=== PATIENT | female | born 1945 | race African-American/Black ===

== ENCOUNTER 2016-10-19 08:39 | Inpatient (IN) | payer OTHER ==
[2016-10-19] MEDS ORDERED: HYDROmorphone HCL CARPU-JECT 1 MG/1 ML DISP.SYRIN IVPUSH ONE (09:28)
[2016-10-19] MEDS ORDERED: ASPIRIN 81 MG CHEWABLE TABLETS PO ONE (09:29)
[2016-10-19] MEDS ORDERED: HYDROmorphone HCL CARPU-JECT 2 MG/1 ML DISP.SYRIN ONE (09:36)
[2016-10-19] MEDS ORDERED: ASPIRIN 81 MG CHEWABLE TABLETS ONE (09:36)
--- NOTE | 2016-10-19 09:36 | PDOC ---
History of Present Illness - General Chief Complaint: Chest Pain Stated Complaint: LEFT CHEST PAIN Time Seen by Provider: 10/19/16 08:44 - History of Present Illness Initial Comments: 10/19/16 09:30 68-year-old female with a past medical history of AODM, hypertension, and hyperlipidemia She usually takes a baby aspirin daily, but stopped 2 days ago because of a nosebleed Surgical history-appendectomy, cholecystectomy, and ventral hernia repair with mesh graft Patient states that on Sunday she was lifting heavy boxes Yesterday she started developing some left sided/left lateral chest pain, radiating up into her neck, into her back, and into her left lateral abdomen, and under her left breast She states the pain as off and on and worse with musculoskeletal maneuvers She does admit to a cough, it is nonproductive She denies any shortness of breath, palpitations, midsternal chest pain, leg swelling, She denies any fevers or chills, nausea vomiting or diarrhea She denies any calf pain She states the pain has been constant all morning today, prompting her to come to the emergency department She denies any other complaints at this time Patient states she did not take any of her morning medications, and did not take her blood pressure medications today Past History - Past Medical History Allergies/Adverse Reactions: Allergies Allergy/AdvReac Type Severity Reaction Status Date / Time latex Allergy Severe Swelling Verified 10/19/16 09:22 insulin lispro [From Humalog] Allergy Intermediate Generalized Verified 09:22 rash and itching naproxen [From Naprosyn] Allergy Swelling Verified 10/19/16 09:22 oxaprozin [From Daypro] Allergy Swelling Verified 10/19/16 09:22 saxagliptin HCl Allergy leg edema Verified 10/19/16 09:22 [From Onglyza] latex Allergy Severe Uncoded 10/19/16 09:22 Mushrooms Allergy Uncoded 10/19/16 09:22 naproxen Allergy Uncoded 10/19/16 09:22 Home Medications: Ambulatory Orders Allopurinol [Zyloprim -] 100 mg PO DAILY 10/19/16 Aspirin [ASA -] 81 mg PO DAILY 10/19/16 Cholecalciferol (Vitamin D3) [Vitamin D3] 2,000 unit PO DAILY 10/19/16 Clonidine HCl [Catapres] 0.2 mg PO TID 10/19/16 Insulin (Levemir) [Levemir Vial] 35 unit SQ DAILY 10/19/16 Liraglutide [Victoza -] 1.8 mg SQ DAILY@0700 10/19/16 Lisinopril [Prinivil -] 40 mg PO BID 10/19/16 Metformin HCl [Metformin HCl ER] 1,000 mg PO BID 10/19/16 Quinidine Sulfate 200 mg PO DAILY 10/19/16 Sitagliptin Phosphate [Januvia] 100 mg PO DAILY 10/19/16 Triamterene/Hydrochlorothiazid [Triamterene-Hctz 37.5-25 mg Cp] 1 each PO DAILY 10/19/16 Anemia: No Asthma: No Cancer: No Cardiac Disorders: No CVA: No COPD: No CHF: No Dementia: No Diabetes: Yes (IDDM on lantus) GI Disorders: Yes (CONSTIPATION) Disorders: Yes (H/O URETERAL STENT) HTN: Yes Hypercholesterolemia: Yes Liver Disease: No Suicide Attempt (Hx): No Seizures: No Thyroid Disease: No - Surgical History Abdominal Surgery: Yes (HERNIA REPAIR WITH MESH IMPLANT) Appendectomy: No Cardiac Surgery: No Cholecystectomy: Yes Lung Surgery: No Neurologic Surgery: No Orthopedic Surgery: Yes (LT KNEE REPLACEMENT) - Psycho/Social/Smoking Cessation Hx Anxiety: No Suicidal Ideation: No Smoking Status: No Smoking History: Smoker current status UNK Have you smoked in the past 12 months: No Number of Cigarettes Smoked Daily: 0 Cigars Per Day: 0 Hx Alcohol Use: No Drug/Substance Use Hx: No Substance Use Type: None Hx Substance Use Treatment: No Review of Systems - Review of Systems Able to Perform ROS?: Yes Comments:: 10/19/16 09:33 12 point review of systems is as per history of present illness and otherwise negative *Physical Exam - Vital Signs Last Vital Signs Temp Pulse Resp BP Pulse Ox 98 F 101 H 20 193/89 100 10/19/16 08:39 10/19/16 08:39 10/19/16 08:39 10/19/16 08:39 10/19/16 08:39 - Physical Exam Comments: 10/19/16 09:34 Physical exam Last Vital Signs Temp Pulse Resp BP Pulse Ox 98 F 101 H 20 193/89 100 10/19/16 08:39 10/19/16 08:39 10/19/16 08:39 10/19/16 08:39 10/19/16 08:39 GENERAL: The patient is awake, alert, and complaining of severe pain HEAD: Normal with no signs of trauma. EYES: Sclera anicteric, conjunctiva normal ENT: Moist mucous membranes. NECK: Normal range of motion, supple LUNGS: Breath sounds equal, clear to auscultation bilaterally. No wheezes, and no crackles. HEART: Regular rate and rhythm, normal S1 and S2 without murmur, rub or gallop. CHEST WALL: There is tenderness on the chest wall in the muscles of the mid axillary line on the left, into the back, and into the left lower anterior chest wall, and left lower ribs-palpation of this area reproduces the pain to some extent ABDOMEN: Soft, nontender, normoactive bowel sounds. No guarding, no rebound. No masses appreciated. There is some tenderness in the left upper abdomen and into the left lateral midaxillary line, and into the left lower lateral ribs Otherwise the abdomen is soft and nontender him and without guarding or rebound EXTREMITIES: Normal range of motion, no edema. No clubbing or cyanosis. No cords, erythema, or tenderness. NEUROLOGICAL: Cranial nerves II through XII grossly intact. Normal speech, normal gait. Motor 5 out of 5 and equal in the upper lower extremities, alert and answering questions, grossly nonfocal neurologic exam PSYCH: Normal mood, normal affect. SKIN: Warm, Dry, normal turgor, no rashes or lesions noted. Heart Score/ECG Review - History History: Slightly suspicious - Electrocardiogram EKG: Non specific repolarization disturbance - Age Age: >/= 65 - Risk Factors Risk Factors Heart Score: Yes Hx Hypercholesterolemia, Yes Hx Hypertension, Yes Hx Diabetes, Yes Hx Obesity Based on the list above the patient has:: >/=3 risk factors or Hx atherosclerotic disease - Troponin Troponin: </= normal limit - Score Heart Score - Total: 5 ED Treatment Course - LABORATORY CBC & Chemistry Diagram: 10/19/16 09:15 10/19/16 09:15 - RADIOLOGY Radiology Studies Ordered: Category Date Time Status CHEST X-RAY PORTABLE* [RAD] Stat Radiology 10/19/16 09:28 Ordered Medical Decision Making - Medical Decision Making 10/19/16 09:38 EKG Sinus tachycardia 102, 0 axis Normal WA interval Nonspecific QRS widening with a QRS duration of 118 ms QTC 492 There is LVH and repolarization abnormality When compared to the EKG of 11/07/14 Today's EKG has some subtle changes from the prior EKG Given the patient's symptomatology, and old CAT scan was pulled to see if her aorta has ever been imaged On the CT scan of 11/07/14 The aorta is unremarkable Musculoskeletal sounding chest back and abdomen pain worse with musculoskeletal maneuvers, after lifting heavy boxes on Sunday However given the patient's significant cardiac risk factors, she has a heart score of 5, and will most likely require serial cardiac enzymes and EKGs and further cardiac workup 10/19/16 10:40 Laboratory Results - last 24 hr 10/19/16 10/19/16 10/19/16 09:15 09:15 09:15 WBC 14.4 H D RBC 4.89 Hgb 12.3 D Hct 38.5 MCV 78.7 L MCHC 31.8 L RDW 15.3 Plt Count 330 MPV 10.4 Sodium 139 Potassium 3.7 Chloride 98 Carbon Dioxide 24 Anion Gap 17 H BUN 35 H Creatinine 1.4 H Creat Clearance w eGFR 36.96 Random Glucose 323 H* D Calcium 9.7 Magnesium 1.6 L Total Bilirubin 1.8 H D AST 39 D ALT 29 D Alkaline Phosphatase 101 H D Creatine Kinase 145 H Troponin I 0.06 Total Protein 7.6 Albumin 3.9 Lipase 10/19/16 09:15 WBC RBC Hgb Hct MCV MCHC RDW Plt Count MPV Sodium Potassium Chloride Carbon Dioxide Anion Gap BUN Creatinine Creat Clearance w eGFR Random Glucose Calcium Magnesium Total Bilirubin AST ALT Alkaline Phosphatase Creatine Kinase Troponin I Total Protein Albumin Lipase 51 First troponin 0.06, white count 14.4, random glucose 323, creat 1.4, all labwork reviewed 10/19/16 10:45 Chest x-ray NAD Given the white count and the left upper quadrant abdominal pain, would check a CT scan Case discussed with hospitalist-will admit/place in observation 10/19/16 11:12 Case discussed with cardiology-Dr. Rod-will see patient in consultation 10/19/16 12:19 CT scan of the abdomen and pelvis without contrast There is a long-standing left sided hydronephrosis without change There is evidence of multiple prior surgical procedures No acute pathology is seen *DC/Admit/Observation/Transfer Diagnosis at time of Disposition: Chest pain, Abdominal pain - Discharge Dispostion Condition at time of disposition: Stable Admit: Yes - Referrals
[2016-10-19] MEDS ORDERED: cloNIDine HCL 0.1 MG TABLET ONE (09:51)
[2016-10-19] MEDS ORDERED: cloNIDine HCL 0.1 MG TABLET PO ONE (09:55)
[2016-10-19 10:03] LABS: MCH 25.1 pg (25.7-33.7); MCHC 31.8 g/dl (32.0-36.0); MEAN CELL VOLUME 78.7 fl (80-96); MEAN PLT VOLUME 10.4 fl (7.5-11.1); PLATELET COUNT 330 K/MM3 (134-434); RDW 15.3 % (11.6-15.6); WHITE BLOOD COUNT 14.4 K/mm3 (4.0-10.0)
--- NOTE | 2016-10-19 10:09 | EKG ---
Test Reason : Blood Pressure : / mmHG Vent. Rate : 102 BPM Atrial Rate : 102 BPM P-R Int : 180 ms QRS Dur : 118 ms QT Int : 378 ms P-R-T Axes : 086 -03 086 degrees QTc Int : 492 ms SINUS TACHYCARDIA LEFT VENTRICULAR HYPERTROPHY WITH QRS WIDENING NONSPECIFIC T WAVE ABNORMALITY ABNORMAL ECG WHEN COMPARED WITH ECG OF 21-JUL-2013 17:29, T wave abnormality now seen in aVL Confirmed by LUANA CAMARGO, MICHAEL ([id number]) on 10/19/2016 10:08:40 AM Referred By: MARIELY GOODWIN Confirmed By:MICHAEL CRAFT MD
[2016-10-19 10:24] LABS: ALBUMIN 3.9 g/dl (3.5-5.0); BILIRUBIN,TOTAL 1.8 mg/dl (0.2-1.0); CALCIUM 9.7 mg/dl (8.4-10.2); CREATININE 1.4 mg/dl (0.6-1.3); MAGNESIUM 1.6 mg/dL (1.8-2.4); TOT PROT 7.6 g/dl (6.4-8.3)
[2016-10-19 10:30] LABS: TROPONIN I (DFP) 0.06 ng/ml (0.03-0.50)
--- NOTE | 2016-10-19 11:36 | CON.CARD ---
Consult Consult Specialty:: Cardiology Referred by:: Dr. Walsh Reason for Consultation:: Chest pain - History of Present Illness Chief Complaint: Chest pain History of Present Illness: 70 yo female with DM, HTN, hyperlipidemia, who presents to [place] ED today with left sided chest, upper abdominal, and left lateral discomfort which is sometimes exacerbated with movement of her torso. Denies any associated nausea, diaphoresis, or dyspnea. Patient reports that she was moving heavy boxes yesterday. No ischemic ECG changes. First troponin 0.06. She reports that her last stress test was > 5 years ago. PMD: Dr. Medina - History Source History Provided By: Patient Limitations to Obtaining History: No Limitations - Past Medical History Cardio/Vascular: Yes: HTN Renal/: Yes: Other (h/o pyelonephritis. 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) Endocrine: Yes: Diabetes Mellitus - Past Surgical History Past Surgical History: Yes: Appendectomy, Cholecystectomy, Hernia Repair, Joint Replacement (Left knee total knee replacement), Laminectomy (Lumbar spine) - Alcohol/Substance Use Hx Alcohol Use: No History of Substance Use: reports: None - Smoking History Smoking history: Smoker current status UNK Have you smoked in the past 12 months: No Aproximately how many cigarettes per day: 0 Home Medications - Allergies Allergies/Adverse Reactions: Allergies Allergy/AdvReac Type Severity Reaction Status Date / Time latex Allergy Severe Swelling Verified 10/19/16 09:22 insulin lispro [From Humalog] Allergy Intermediate Generalized Verified 09:22 rash and itching naproxen [From Naprosyn] Allergy Swelling Verified 10/19/16 09:22 oxaprozin [From Daypro] Allergy Swelling Verified 10/19/16 09:22 saxagliptin HCl Allergy leg edema Verified 10/19/16 09:22 [From Onglyza] latex Allergy Severe Uncoded 10/19/16 09:22 Mushrooms Allergy Uncoded 10/19/16 09:22 naproxen Allergy Uncoded 10/19/16 09:22 - Home Medications Home Medications: Ambulatory Orders Allopurinol [Zyloprim -] 100 mg PO DAILY 10/19/16 Aspirin [ASA -] 81 mg PO DAILY 10/19/16 Cholecalciferol (Vitamin D3) [Vitamin D3] 2,000 unit PO DAILY 10/19/16 Clonidine HCl [Catapres] 0.2 mg PO TID 10/19/16 Insulin (Levemir) [Levemir Vial] 35 unit SQ DAILY 10/19/16 Liraglutide [Victoza -] 1.8 mg SQ DAILY@0700 10/19/16 Lisinopril [Prinivil -] 40 mg PO BID 10/19/16 Metformin HCl [Metformin HCl ER] 1,000 mg PO BID 10/19/16 Quinidine Sulfate 200 mg PO DAILY 10/19/16 Sitagliptin Phosphate [Januvia] 100 mg PO DAILY 10/19/16 Triamterene/Hydrochlorothiazid [Triamterene-Hctz 37.5-25 mg Cp] 1 each PO DAILY 10/19/16 Family Disease History - Family Disease History Family History: Denies (premature CAD or sudden cardiac ) Review of Systems - Review of Systems Constitutional: reports: No Symptoms Eyes: reports: No Symptoms HENT: reports: No Symptoms Cardiovascular: reports: Chest Pain. denies: Edema, Palpitations, Shortness of Breath Respiratory: reports: No Symptoms Gastrointestinal: denies: Melena, Vomiting Blood Genitourinary: reports: No Symptoms Endocrine: reports: No Symptoms Hematology/Lymphatic: reports: No Symptoms Psychiatric: reports: No Symptoms Vital Signs: Vital Signs Temperature 98 F 10/19/16 08:39 Pulse Rate 81 10/19/16 11:03 Respiratory Rate 18 10/19/16 11:03 Blood Pressure 161/87 10/19/16 11:03 O2 Sat by Pulse Oximetry (%) 100 10/19/16 11:03 Constitutional: Yes: Well Nourished, No Distress, Obese Eyes: Yes: Conjunctiva Clear, EOM Intact HENT: Yes: Atraumatic, Normocephalic Respiratory: Yes: CTA Bilaterally Gastrointestinal: Yes: Normal Bowel Sounds, Soft Cardiovascular: Yes: Regular Rate and Rhythm JVD: No Carotid Bruit: No Heart Sounds: Yes: S1, S2 Murmur: No: Systolic Murmur Edema: No Peripheral Pulses WNL: Yes Neurological: Yes: Alert, Oriented, Cran Nerves II-XII Intact Psychiatric: Yes: WNL - Other Data Echo: Report Reviewed (07/21/13 Echo: Normal LV size and systolic function. Borderline LA enlargement. Mild MR. Mild TR. RVSP 30-40 mmHg. Mild aortic root dilatation.), Image Reviewed Imaging - Results Chest X-ray: Report Reviewed (10/19/16: No acute pathology) Assessment/Plan 70 yo female with DM, HTN, hyperlipidemia, who presents to [place] ED today with left sided chest, upper abdominal, and left lateral discomfort. Patient's discomfort is likely musculoskeletal in etiology. ECG demonstrated sinus rhythm with LVH w/ QRS widening and non-specific T wave abnormality. First troponin 0.06. Last stress test was > 5 years ago. RECS: Given patient's cardiac risk factors, patient to be admitted for observation overnight. If patient remains clinically stable and serial trops are negative, then patient may be discharged tomorrow AM with outpatient follow-up in my office for outpatient echocardiogram and Lexiscan nuclear stress test. Please call with questions.
--- NOTE | 2016-10-19 12:05 | HP ---
[id number] female with a past medical history of IDDM, HTN, pylenephritis, CKD. She reports moving heavy boxes on 10/16/16. She awoke the following day with pain to the center chest that radiates to the right shoulder. She reports the pain worsened upon movement and resolved spontaneously. Patient reports she awoke this morning with severe with a sharp pain to the center of the chest radiating to the neck that worsened upon position changes. Patient reports the pain is unrelieved with position changes and tylenol. ER course was notable for: (1) troponin x1 0.06 wnl, WBC 14 (2) EKG, sinus tachycardia, HR 102, normal axis, QTC 492, LVH unchanged from prior ekg 11/08 (3) CT of abd/pelvis, left sided hydronephrosis long standing, no acute pathology Recent Travel: none PAST MEDICAL HISTORY: IDDM, HTN, CKD PAST SURGICAL HISTORY:appendectomy, cholescytectomy, left urethral stent placement and removal for left urethral stricture. Social History: none Smoking:none Alcohol:none Drugs: none Family History: non contributory Allergies latex Allergy (Severe, Verified 10/19/16 09:22) Swelling ANAPHYLACTIC SHOCK insulin lispro [From Humalog] Allergy (Intermediate, Verified 10/19/16 09:22) Generalized rash and itching naproxen [From Naprosyn] Allergy (Verified 10/19/16 09:22) Swelling oxaprozin [From Daypro] Allergy (Verified 10/19/16 09:22) Swelling saxagliptin HCl [From Onglyza] Allergy (Verified 10/19/16 09:22) leg edema latex Allergy (Severe, Uncoded 10/19/16 09:22) ANAPHYLACTIC SHOCK Mushrooms Allergy (Uncoded 10/19/16 09:22) naproxen Allergy (Uncoded 10/19/16 09:22) HOME MEDICATIONS: Home Medications Medication Instructions Recorded Allopurinol [Zyloprim -] 100 mg PO DAILY 10/19/16 Aspirin [ASA -] 81 mg PO DAILY 10/19/16 Cholecalciferol (Vitamin D3) 2,000 unit PO DAILY 10/19/16 [Vitamin D3] Clonidine HCl [Catapres] 0.2 mg PO TID 10/19/16 Insulin (Levemir) [Levemir Vial] 35 unit SQ DAILY 10/19/16 Liraglutide [Victoza -] 1.8 mg SQ DAILY@0700 10/19/16 Lisinopril [Prinivil -] 40 mg PO BID 10/19/16 Metformin HCl [Metformin HCl ER] 1,000 mg PO BID 10/19/16 Quinidine Sulfate 200 mg PO DAILY 10/19/16 Sitagliptin Phosphate [Januvia] 100 mg PO DAILY 10/19/16 Triamterene/Hydrochlorothiazid 1 each PO DAILY 10/19/16 [Triamterene-Hctz 37.5-25 mg Cp] REVIEW OF SYSTEMS CONSTITUTIONAL: Absent: fever, chills, diaphoresis, generalized weakness, malaise, loss of appetite, weight change HEENT: Absent: rhinorrhea, nasal congestion, throat pain, throat swelling, difficulty swallowing, mouth swelling, ear pain, eye pain, visual changes CARDIOVASCULAR: Absent: chest pain, syncope, palpitations, irregular heart rate, lightheadedness , peripheral edema RESPIRATORY: Absent: cough, shortness of breath, dyspnea with exertion, orthopnea, wheezing, stridor, hemoptysis GASTROINTESTINAL: Absent: abdominal pain, abdominal distension, nausea, vomiting, diarrhea, constipation, melena, hematochezia GENITOURINARY: Absent: dysuria, frequency, urgency, hesitancy, hematuria, flank pain, genital pain MUSCULOSKELETAL: Absent: myalgia, arthralgia, joint swelling, back pain, neck pain SKIN: Absent: rash, itching, pallor HEMATOLOGIC/IMMUNOLOGIC: Absent: easy bleeding, easy bruising, lymphadenopathy, frequent infections ENDOCRINE: Absent: unexplained weight gain, unexplained weight loss, heat intolerance, cold intolerance NEUROLOGIC: Absent: headache, focal weakness or paresthesias, dizziness, unsteady gait, seizure, mental status changes, bladder or bowel incontinence PSYCHIATRIC: Absent: anxiety, depression, suicidal or homicidal ideation, hallucinations. PHYSICAL EXAMINATION GENERAL: Awake, alert, and fully oriented, in no acute distress. HEAD: Normal with no signs of trauma. EYES: Pupils equal, round and reactive to light, extraocular movements intact, sclera anicteric, conjunctiva clear. No lid lag. EARS, NOSE, THROAT: Ears normal, nares patent, oropharynx clear without exudates. Moist mucous membranes. NECK: Normal range of motion, supple without lymphadenopathy, JVD, or masses. LUNGS: Breath sounds equal, clear to auscultation bilaterally. No wheezes, and no crackles. No accessory muscle use. HEART: Regular rate and rhythm, normal S1 and S2 without murmur, rub or gallop. ABDOMEN: Soft, nontender, not distended, normoactive bowel sounds, no guarding, no rebound, no masses. No hepatomegaly or splenomegaly. MUSCULOSKELETAL: Normal range of motion at all joints. No bony deformities or tenderness. No CVA tenderness. point tenderness noted to the left anteror chest wall, muscle spasm noted the left trapezus muscle UPPER EXTREMITIES: 2+ pulses, warm, well-perfused. No cyanosis. No clubbing. Cap refill <2 seconds. No peripheral edema. LOWER EXTREMITIES: 2+ pulses, warm, well-perfused. No calf tenderness. No peripheral edema. NEUROLOGICAL: Cranial nerves II-XII intact. Normal speech. Normal gait. PSYCHIATRIC: Cooperative. Good eye contact. Appropriate mood and affect. SKIN: Warm, dry, normal turgor, no rashes or lesions noted. ASSESSMENT/PLAN: 1) card chest pain r/o acs - reproducible chest pain noted on exam, unlikely acs - troponin x 1 wnl, pending 2nd and 3rd - continous cardiac monitoring - heart score 5, cardiology Dr Rod consulted HTN - elevated b/p noted, pt reports not taking her AM medications, restart lisnopril and clonodine -hold Hctz/triametherene due to CHACHA 2) endo IDDM - hold metformin and januvia, fingersticks achs w/regular insulin coverage - continue levermir - pending hemglobin a1c 3) neph - acute on chronic kidney disease, creatine 1.4 baseline 0.8 - estela likely secondary to dehyration, elevated anion gap noted, gentle IV hydration - hold nephrotoxic agents, repeat bmp in am f/e/n - diabetic/low sodium diet - gentle IVF ppx - zantac - heparin - scd - oob dispo: requires telemetry observation, d/c home tomm Visit type - Emergency Visit Emergency Visit: Yes ED Registration Date: 10/19/16 Care time: The patient presented to the Emergency Department on the above date and was hospitalized for further evaluation of their emergent condition. - New Patient This patient is new to me today: Yes Date on this admission: 10/19/16 - Critical Care Critical Care patient: No
[2016-10-19] MEDS ORDERED: MAGNESIUM SULF 50% (8.12 MEQ/2 ML-1 GM VIAL) ONE (12:35)
[2016-10-19] MEDS ORDERED: SODIUM CHLORIDE 0.45%/POT 1,000 ML IV SCH (12:45)
[2016-10-19] MEDS ORDERED: LISINOPRIL 20 MG TABLET (FP) PO ONE (12:45)
[2016-10-19] MEDS ORDERED: MAGNESIUM SULFATE 2 GM in SODIUM CHLORIDE 100 ML IVPB ONE (12:45)
[2016-10-19] MEDS: SODIUM CHLORIDE 0.45%/POT 1,000 ML IV SCH (12:54)
[2016-10-19] MEDS: QUINIDINE SULFATE 200 MG PO SCH (12:54)
[2016-10-19] MEDS ORDERED: ACETAMINOPHEN 325 MG TABLET (FP) PO PRN (13:15)
[2016-10-19] MEDS ORDERED: CYCLOBENZAPRINE HCL 10 MG TABLET (FP) PO PRN (13:15)
[2016-10-19] MEDS ORDERED: ACETAMINOPHEN 500 MG TABLET (FP) ONE (13:31)
[2016-10-19] MEDS: cloNIDine HCL 0.1 MG TABLET PO SCH ×2 (14:06→21:28)
[2016-10-19] MEDS ORDERED: ONDANSETRON 4 MG/2 ML VIAL IVPUSH PRN (14:25)
[2016-10-19 14:34] VITALS: BMI 34.6
[2016-10-19] MEDS ORDERED: PT OWN MED DRAWER 7, Y5N ONE (16:08)
[2016-10-19 16:36] LABS: URINE APPEARANCE Clear; URINE BILIRUBIN Negative (NEGATIVE); URINE BLOOD 1+ (NEGATIVE); URINE COLOR YELLOW; URINE GLUCOSE (UA) 2+ (NEGATIVE); URINE KETONE 1+ (NEGATIVE); URINE LEUK ESTERASE Negative (NEGATIVE); URINE NITRITE Negative (NEGATIVE); URINE PROTEIN 3+ (NEGATIVE); URINE UROBILINOGEN 0.2 E.U/dl (0.2-1.0)
[2016-10-19] MEDS: INSULIN SLIDING SCALE (NOVOLOG) 1 VIAL SQ SCH ×2 (17:15→21:24)
[2016-10-19 18:00] LABS: CALCIUM 8.8 mg/dl (8.4-10.2); CREATININE 1.3 mg/dl (0.6-1.3); MAGNESIUM 2.1 mg/dL (1.8-2.4); PHOSPHOROUS 3.5 mg/dl (2.5-4.6)
[2016-10-19 18:49] LABS: URINE BACTERIA FEW /hpf (NEGATIVE); URINE WBC 0-2 (3-5)
[2016-10-19] MEDS: INSULIN DETEMIR 100 UNITS/ML MDV SQ SCH (21:22)
[2016-10-19] MEDS: LISINOPRIL 20 MG TABLET (FP) PO SCH (21:27)
[2016-10-19] MEDS: morphine CARPU-JECT 4 MG/1 ML DISP.SYRIN IVPUSH PRN (21:35)
[2016-10-20] MEDS: cloNIDine HCL 0.1 MG TABLET PO SCH ×3 (05:59→21:39)
[2016-10-20] MEDS: INSULIN SLIDING SCALE (NOVOLOG) 1 VIAL SQ SCH ×3 (06:26→21:39)
[2016-10-20 08:50] LABS: BASOPHIL 0.5 % (0-2.0); EOSINOPHIL 2.1 % (0-4.5); MCH 25.7 pg (25.7-33.7); MCHC 32.2 g/dl (32.0-36.0); MEAN CELL VOLUME 79.9 fl (80-96); NEUTROPHILS 76.8 % (42.8-82.8); PLATELET COUNT 274 K/MM3 (134-434); RDW 15.6 % (11.6-15.6); WHITE BLOOD COUNT 14.4 K/mm3 (4.0-10.0)
[2016-10-20 09:03] LABS: ALBUMIN 2.8 g/dl (3.5-5.0); BILIRUBIN,TOTAL 0.9 mg/dl (0.2-1.0); CALCIUM 8.6 mg/dl (8.4-10.2); CREATININE 1.5 mg/dl (0.6-1.3); PHOSPHOROUS 2.2 mg/dl (2.5-4.6); TOT PROT 6.2 g/dl (6.4-8.3)
[2016-10-20] MEDS ORDERED: PT OWN MED DRAWER 7, Y5N ONE (09:15)
[2016-10-20] MEDS ORDERED: CEFTRIAXONE 2 GM in DEXTROSE 5%-WATER - 100 ML IVPB ONE (09:47)
[2016-10-20] MEDS ORDERED: INSULIN DETEMIR 100 UNITS/ML MDV SQ SCH (10:00)
[2016-10-20] MEDS: ASPIRIN 81 MG CHEWABLE TABLETS PO SCH (10:38)
[2016-10-20] MEDS: LISINOPRIL 20 MG TABLET (FP) PO SCH ×2 (10:39→21:40)
[2016-10-20] MEDS: RANITIDINE HCL 150 MG TABLET (FP) PO SCH (10:40)
[2016-10-20] MEDS: CHOLECALCIFEROL (VITAMIN D3) 1,000 UNIT TABLET (FP) PO SCH (10:40)
[2016-10-20] MEDS: QUINIDINE SULFATE 200 MG PO SCH (10:40)
[2016-10-20] MEDS ORDERED: CEFTRIAXONE 50 ML ONE (10:43)
[2016-10-20] MEDS ORDERED: CEFTRIAXONE 100 ML IVPB ONE (10:46)
[2016-10-20 10:48] LABS: TROPONIN I (DFP) 0.06 ng/ml (0.03-0.50)
[2016-10-20] MEDS ORDERED: NAPH,MB-DB/K PH,MBDB POWDER PACKET PO ONE (11:15)
--- NOTE | 2016-10-20 12:11 | EKG ---
Test Reason : Blood Pressure : / mmHG Vent. Rate : 073 BPM Atrial Rate : 073 BPM P-R Int : 200 ms QRS Dur : 120 ms QT Int : 438 ms P-R-T Axes : 074 -15 012 degrees QTc Int : 482 ms NORMAL SINUS RHYTHM LEFT VENTRICULAR HYPERTROPHY WITH QRS WIDENING ABNORMAL ECG WHEN COMPARED WITH ECG OF 19-OCT-2016 08:47, NONSPECIFIC T WAVE ABNORMALITY is no longer present in aVL Confirmed by LUANA CAMARGO, MCIHAEL ([id number]) on 10/20/2016 12:11:20 PM Referred By: ABDOULAYE TRINIDAD Confirmed By:MICHAEL CRAFT MD
--- NOTE | 2016-10-20 12:20 | PN ---
Progress Note, Physician History of Present Illness: No new complaints. - Current Medication List Current Medications: Active Medications Acetaminophen (Tylenol -) 650 mg PO Q4H PRN PRN Reason: FEVER OR PAIN Aspirin (Asa -) 81 mg PO DAILY [facility] Last Admin: 10/20/16 10:38 Dose: 81 mg Cholecalciferol (Vitamin D3 -) 2,000 unit PO DAILY [facility] Last Admin: 10/20/16 10:40 Dose: 2,000 unit Clonidine (Catapres -) 0.2 mg PO TID [facility] Last Admin: 10/20/16 05:59 Dose: 0.2 mg Cyclobenzaprine HCl (Flexeril -) 10 mg PO TID PRN PRN Reason: MUSCLE SPASMS Last Admin: 10/19/16 19:51 Dose: 10 mg Potassium Chloride/Sodium Chloride (1/2ns+20meq Kcl) 1,000 mls @ 75 mls/hr IV ASDIR [facility] Last Admin: 10/19/16 12:54 Dose: 75 mls/hr Insulin Aspart (Novolog Vial Sliding Scale -) 1 vial SQ ACHS [facility] PRN Reason: Protocol Last Admin: 10/20/16 06:26 Dose: 6 units Insulin Detemir (Levemir Vial) 35 units SQ HS [facility] Last Admin: 10/19/16 21:22 Dose: 35 units Lisinopril (Prinivil) 40 mg PO BID [facility] Last Admin: 10/20/16 10:39 Dose: 40 mg Morphine Sulfate (Morphine Injection -) 4 mg IVPUSH Q6H PRN PRN Reason: PAIN Last Admin: 10/19/16 21:35 Dose: 4 mg Ondansetron HCl (Zofran Injection) 4 mg IVPUSH Q6H PRN PRN Reason: NAUSEA AND/OR VOMITING Quinidine Sulfate (Quinidine Sulfate -) 200 mg PO DAILY [facility] Last Admin: 10/20/16 10:40 Dose: 200 mg Ranitidine HCl (Zantac -) 150 mg PO DAILY [facility] Last Admin: 10/20/16 10:40 Dose: 150 mg - Objective Vital Signs: Vital Signs Temperature 99.1 F 10/20/16 06:00 Pulse Rate 81 10/20/16 06:00 Respiratory Rate 17 10/20/16 06:00 Blood Pressure 121/56 10/20/16 06:00 O2 Sat by Pulse Oximetry (%) 97 10/20/16 06:59 Constitutional: Yes: Well Nourished, No Distress, Obese Eyes: Yes: Conjunctiva Clear, EOM Intact HENT: Yes: Atraumatic, Normocephalic Cardiovascular: Yes: Regular Rate and Rhythm. No: JVD, Murmur Respiratory: Yes: CTA Bilaterally Gastrointestinal: Yes: Normal Bowel Sounds, Soft. No: Tenderness Edema: No Neurological: Yes: WNL, Alert, Oriented Psychiatric: Yes: WNL Labs: CBC, BMP 10/20/16 07:00 10/20/16 07:00 Assessment/Plan 70 yo female with DM, HTN, hyperlipidemia, who presents to [place] ED today with left sided chest, upper abdominal, and left lateral discomfort. Patient's discomfort is likely musculoskeletal in etiology. ECG demonstrated sinus rhythm with LVH w/ QRS widening and non-specific T wave abnormality. Serial trops were negative Last stress test was > 5 years ago. Hgb 12.3 -> 9.7 this AM. No gross signs of bleeding. RECS: Patient does not require any further inpatient cardiac evaluation. My office will contact patient to arrange for outpatient echocardiogram and Lexiscan nuclear stress test. Anemia evaluation as per primary team, but would repeat CBC to confirm results. Discharge planning as per hospitalist. Will see prn. Please call with questions.
--- NOTE | 2016-10-20 12:25 | PN ---
[id number]. OBJECTIVE: Patient is a 70 y/o female with a past medical history of IDDM, HTN , pylenephritis, CKD. patient was admitted from the emergency department for chest pain. Vital Signs Period Temp Pulse Resp BP Sys/Pascual Pulse Ox Last 24 Hr 99.1 F-99.2 F 78-87 17-18 121-178/56-92 95-97 cccGENERAL: Awake, alert, and fully oriented, in no acute distress. HEAD: Normal with no signs of trauma. EYES: Pupils equal, round and reactive to light, extraocular movements intact, sclera anicteric, conjunctiva clear. No lid lag. EARS, NOSE, THROAT: Ears normal, nares patent, oropharynx clear without exudates. Moist mucous membranes. NECK: Normal range of motion, supple without lymphadenopathy, JVD, or masses. LUNGS: Breath sounds equal, clear to auscultation bilaterally. No wheezes, and no crackles. No accessory muscle use. HEART: Regular rate and rhythm, normal S1 and S2 without murmur, rub or gallop. ABDOMEN: Soft, nontender, not distended, normoactive bowel sounds, no guarding, no rebound, no masses. No hepatomegaly or splenomegaly. MUSCULOSKELETAL: Normal range of motion at all joints. No bony deformities or tenderness. No CVA tenderness. point tenderness noted to the left anteror chest wall. UPPER EXTREMITIES: 2+ pulses, warm, well-perfused. No cyanosis. No clubbing. Cap refill <2 seconds. No peripheral edema. LOWER EXTREMITIES: 2+ pulses, warm, well-perfused. No calf tenderness. No peripheral edema. NEUROLOGICAL: Cranial nerves II-XII intact. Normal speech. Normal gait. PSYCHIATRIC: Cooperative. Good eye contact. Appropriate mood and affect. SKIN: Warm, dry, normal turgor, no rashes or lesions noted. Laboratory Results - last 24 hr 10/19/16 10/19/16 10/19/16 15:45 15:56 17:02 WBC RBC Hgb Hct MCV MCHC RDW Plt Count MPV Neutrophils % Lymphocytes % Monocytes % Eosinophils % Basophils % Sodium Potassium Chloride Carbon Dioxide Anion Gap BUN Creatinine Creat Clearance w eGFR POC Glucometer 392 Random Glucose Hemoglobin A1c % Calcium Phosphorus 2.9 Magnesium Total Bilirubin AST ALT Alkaline Phosphatase Creatine Kinase Troponin I Total Protein Albumin Urine Color Yellow Urine Appearance Clear Urine pH 6.0 Ur Specific [place] 1.015 Urine Protein 3+ H Urine Glucose (UA) 2+ H Urine Ketones 1+ H Urine Blood 1+ H Urine Nitrite Negative Urine Bilirubin Negative Urine Urobilinogen 0.2 e.u/dl Ur Leukocyte Esterase Negative Urine RBC 2-5 Urine WBC 0-2 Ur Epithelial Cells Few Urine Bacteria Few 10/19/16 10/19/16 10/19/16 17:17 17:17 17:17 WBC RBC Hgb Hct MCV MCHC RDW Plt Count MPV Neutrophils % Lymphocytes % Monocytes % Eosinophils % Basophils % Sodium 135 L Potassium 3.8 Chloride 97 L Carbon Dioxide 28 Anion Gap 10 BUN 32 H Creatinine 1.3 Creat Clearance w eGFR POC Glucometer Random Glucose 411 H* D Hemoglobin A1c % 8.3 H D Calcium 8.8 Phosphorus 3.5 D Magnesium 2.1 D Total Bilirubin AST ALT Alkaline Phosphatase Creatine Kinase Troponin I 0.50 Total Protein Albumin Urine Color Urine Appearance Urine pH Ur Specific [place] Urine Protein Urine Glucose (UA) Urine Ketones Urine Blood Urine Nitrite Urine Bilirubin Urine Urobilinogen Ur Leukocyte Esterase Urine RBC Urine WBC Ur Epithelial Cells Urine Bacteria 10/19/16 10/20/16 10/20/16 21:19 06:21 07:00 WBC 14.4 H RBC 3.76 D Hgb 9.7 L D Hct 30.0 L D MCV 79.9 L MCHC 32.2 RDW 15.6 Plt Count 274 MPV 9.0 D Neutrophils % 76.8 Lymphocytes % 11.3 D Monocytes % 9.3 Eosinophils % 2.1 Basophils % 0.5 Sodium Potassium Chloride Carbon Dioxide Anion Gap BUN Creatinine Creat Clearance w eGFR POC Glucometer 330 257 Random Glucose Hemoglobin A1c % Calcium Phosphorus Magnesium Total Bilirubin AST ALT Alkaline Phosphatase Creatine Kinase Troponin I Total Protein Albumin Urine Color Urine Appearance Urine pH Ur Specific [place] Urine Protein Urine Glucose (UA) Urine Ketones Urine Blood Urine Nitrite Urine Bilirubin Urine Urobilinogen Ur Leukocyte Esterase Urine RBC Urine WBC Ur Epithelial Cells Urine Bacteria 10/20/16 10/20/16 07:00 07:00 WBC RBC Hgb Hct MCV MCHC RDW Plt Count MPV Neutrophils % Lymphocytes % Monocytes % Eosinophils % Basophils % Sodium 136 Potassium 3.6 Chloride 101 Carbon Dioxide 28 Anion Gap 7 L BUN 30 H Creatinine 1.5 H Creat Clearance w eGFR 34.13 POC Glucometer Random Glucose 146 H D Hemoglobin A1c % Calcium 8.6 Phosphorus 2.2 L D Magnesium 2.0 Total Bilirubin 0.9 D AST 22 D ALT 21 D Alkaline Phosphatase 81 Creatine Kinase 67 Troponin I 0.06 Total Protein 6.2 L Albumin 2.8 L D Urine Color Urine Appearance Urine pH Ur Specific [place] Urine Protein Urine Glucose (UA) Urine Ketones Urine Blood Urine Nitrite Urine Bilirubin Urine Urobilinogen Ur Leukocyte Esterase Urine RBC Urine WBC Ur Epithelial Cells Urine Bacteria Active Medications Generic Name Dose Route Start Last Admin Trade Name Freq PRN Reason Stop Dose Admin Acetaminophen 650 mg 10/19/16 13:15 Tylenol - PO Q4H PRN FEVER OR PAIN Aspirin 81 mg 10/20/16 10:00 10/20/16 10:38 Asa - PO 81 mg DAILY [facility] Administration Cholecalciferol 2,000 unit 10/20/16 10:00 10/20/16 10:40 Vitamin D3 - PO 2,000 unit DAILY [facility] Administration Clonidine 0.2 mg 10/19/16 14:00 10/20/16 05:59 Catapres - PO 0.2 mg TID [facility] Administration Cyclobenzaprine HCl 10 mg 10/19/16 13:15 10/19/16 19:51 Flexeril - PO 10 mg TID PRN Administration MUSCLE SPASMS Potassium Chloride/Sodium Chloride 1,000 mls @ 75 mls/hr 10/19/16 12:45 12:54 1/2ns+20meq Kcl IV 75 mls/hr ASDIR BURTON Administration Insulin Aspart 1 vial 10/19/16 16:30 10/20/16 06:26 Novolog Vial Sliding Scale - SQ 6 units ACHS [facility] Administration Protocol Insulin Detemir 35 units 10/19/16 22:00 10/19/16 21:22 Levemir Vial SQ 35 units HS B[facility] Administration Lisinopril 40 mg 10/19/16 22:00 10/20/16 10:39 Prinivil PO 40 mg BID [facility] Administration Morphine Sulfate 4 mg 10/19/16 14:26 10/19/16 21:35 Morphine Injection - IVPUSH 4 mg Q6H PRN Administration PAIN Ondansetron HCl 4 mg 10/19/16 14:25 Zofran Injection IVPUSH Q6H PRN NAUSEA AND/OR VOMITING Quinidine Sulfate 200 mg 10/19/16 12:15 10/20/16 10:40 Quinidine Sulfate - PO 200 mg DAILY [facility] Administration Ranitidine HCl 150 mg 10/20/16 10:00 10/20/16 10:40 Zantac - PO 150 mg DAILY [facility] Administration ASSESSMENT/PLAN: 1) card chest pain r/o acs - reproducible chest pain noted on exam, unlikely acs - troponin x 3 wnl - continous cardiac monitoring, no dysarhyhmias noted - cardiology Dr Rod consulted and following HTN - continue lisnopril and clonodine -hold Hctz/triametherene due to CHACHA 2) endo IDDM - hold metformin and januvia, fingersticks achs w/regular insulin coverage - continue levermir - hemglobin a1c 8.3 noted 3) neph - acute on chronic kidney disease, creatine 1.5 baseline 0.8 - estela likely secondary to dehyration, elevated anion gap noted, gentle IV hydration - hold nephrotoxic agents, repeat bmp in am f/e/n - diabetic/low sodium diet - gentle IVF ppx - zantac - heparin - scd - oob dispo: requires telemetry observation, d/c home tomm Visit type - Emergency Visit Emergency Visit: Yes ED Registration Date: 10/21/16 Care time: The patient presented to the Emergency Department on the above date and was hospitalized for further evaluation of their emergent condition. - New Patient This patient is new to me today: No - Critical Care Critical Care patient: No - Discharge Referral Referred to [facility] Yes Physician Referral: Eyal Medina MD (Int Med)
[2016-10-20] MEDS ORDERED: SODIUM CHLORIDE 1,000 ML IV STA (12:32)
[2016-10-20] MEDS: SODIUM CHLORIDE 0.45%/POT 1,000 ML IV SCH (16:00)
[2016-10-20 16:39] LABS: BASOPHIL 0.4 % (0-2.0); EOSINOPHIL 2.1 % (0-4.5); MCH 25.9 pg (25.7-33.7); MCHC 32.4 g/dl (32.0-36.0); MEAN CELL VOLUME 79.9 fl (80-96); MEAN PLT VOLUME 9.3 fl (7.5-11.1); NEUTROPHILS 72.4 % (42.8-82.8); PLATELET COUNT 256 K/MM3 (134-434); RDW 15.6 % (11.6-15.6); WHITE BLOOD COUNT 11.9 K/mm3 (4.0-10.0)
[2016-10-20 16:51] LABS: CALCIUM 8.1 mg/dl (8.4-10.2); CREATININE 1.7 mg/dl (0.6-1.3)
[2016-10-20 18:22] LABS: FREE T4 1.21 ng/dl (0.76-1.46); THYROID STIMULATING HORMONE 0.49 uIU/ml (0.358-3.74)
[2016-10-20] MEDS: INSULIN DETEMIR 100 UNITS/ML MDV SQ SCH (21:40)
[2016-10-21] MEDS: cloNIDine HCL 0.1 MG TABLET PO SCH ×3 (06:48→21:49)
[2016-10-21] MEDS: INSULIN SLIDING SCALE (NOVOLOG) 1 VIAL SQ SCH ×4 (06:48→21:49)
[2016-10-21 08:43] LABS: BASOPHIL 0.3 % (0-2.0); EOSINOPHIL 2.7 % (0-4.5); MCH 25.8 pg (25.7-33.7); MCHC 32.5 g/dl (32.0-36.0); MEAN CELL VOLUME 79.2 fl (80-96); MEAN PLT VOLUME 9.7 fl (7.5-11.1); NEUTROPHILS 72.4 % (42.8-82.8); PLATELET COUNT 268 K/MM3 (134-434); RDW 15.7 % (11.6-15.6)
[2016-10-21 08:55] LABS: ALBUMIN 2.7 g/dl (3.5-5.0); BILIRUBIN,TOTAL 0.5 mg/dl (0.2-1.0); CALCIUM 8.5 mg/dl (8.4-10.2); CREATININE 1.3 mg/dl (0.6-1.3); MAGNESIUM 1.9 mg/dL (1.8-2.4); PHOSPHOROUS 2.9 mg/dl (2.5-4.6); TOT PROT 6.1 g/dl (6.4-8.3)
[2016-10-21] MEDS ORDERED: PT OWN MED DRAWER 7, Y5N ONE (09:49)
[2016-10-21] MEDS: ASPIRIN 81 MG CHEWABLE TABLETS PO SCH (09:51)
[2016-10-21] MEDS: RANITIDINE HCL 150 MG TABLET (FP) PO SCH (09:51)
[2016-10-21] MEDS: QUINIDINE SULFATE 200 MG PO SCH (09:52)
[2016-10-21] MEDS: LISINOPRIL 20 MG TABLET (FP) PO SCH ×2 (09:52→21:50)
[2016-10-21] MEDS: CHOLECALCIFEROL (VITAMIN D3) 1,000 UNIT TABLET (FP) PO SCH (09:52)
--- NOTE | 2016-10-21 11:23 | PN ---
Physical Exam: SUBJECTIVE: Patient seen and examined, denies any CP/SOB, denies any N/V, denies any nose bleed, denies any hematuria or blood in the stools, denies any pain or discomfort. OBJECTIVE: 70 y/o female with a past medical history of IDDM, HTN, pylenephritis , kidney stones was admitted from the emergency department for chest pain. Vital Signs Period Temp Pulse Resp BP Sys/Pascual Pulse Ox Last 24 Hr 98.4 F-98.8 F 62-73 16-20 124-139/65-84 97-98 GENERAL: The patient is awake, alert, and fully oriented, in no acute distress. HEAD: Normal with no signs of trauma. EYES: PERRL, extraocular movements intact, sclera anicteric, conjunctiva clear. No ptosis. ENT: Ears normal, nares patent, oropharynx clear without exudates, moist mucous membranes. NECK: Trachea midline, full range of motion, supple. LUNGS: Breath sounds equal, clear to auscultation bilaterally, no wheezes, no crackles, no accessory muscle use. HEART: Regular rate and rhythm, S1, S2 without murmur, rub or gallop. ABDOMEN: Soft, nontender, nondistended, normoactive bowel sounds, no guarding, no rebound, no hepatosplenomegaly, no masses. EXTREMITIES: 2+ pulses, warm, well-perfused, no edema. NEUROLOGICAL: Cranial nerves II through XII grossly intact. Normal speech, gait not observed. PSYCH: Normal mood, normal affect. SKIN: Warm, dry, normal turgor, no rashes or lesions noted Laboratory Results - last 24 hr 10/20/16 10/20/16 10/20/16 08:18 16:05 16:05 WBC 11.9 H RBC 3.60 Hgb 9.3 L Hct 28.7 L MCV 79.9 L MCHC 32.4 RDW 15.6 Plt Count 256 MPV 9.3 Neutrophils % 72.4 Lymphocytes % 15.8 D Monocytes % 9.3 Eosinophils % 2.1 Basophils % 0.4 Sodium 132 L Potassium 3.9 Chloride 99 Carbon Dioxide 25 Anion Gap 8 BUN 31 H Creatinine 1.7 H Creat Clearance w eGFR POC Glucometer Random Glucose 271 H D Calcium 8.1 L Phosphorus Magnesium Total Bilirubin AST ALT Alkaline Phosphatase Total Protein Albumin TSH 0.49 Free T4 1.21 02/24/17 02/24/17 02/25/17 17:54 21:37 06:47 WBC RBC Hgb Hct MCV MCHC RDW Plt Count MPV Neutrophils % Lymphocytes % Monocytes % Eosinophils % Basophils % Sodium Potassium Chloride Carbon Dioxide Anion Gap BUN Creatinine Creat Clearance w eGFR POC Glucometer 244 249 134 Random Glucose Calcium Phosphorus Magnesium Total Bilirubin AST ALT Alkaline Phosphatase Total Protein Albumin TSH Free T4 10/21/16 10/21/16 07:35 07:35 WBC 9.0 RBC 3.64 Hgb 9.4 L Hct 28.8 L MCV 79.2 L MCHC 32.5 RDW 15.7 H Plt Count 268 MPV 9.7 Neutrophils % 72.4 Lymphocytes % 15.5 Monocytes % 9.1 Eosinophils % 2.7 Basophils % 0.3 Sodium 139 Potassium 4.0 Chloride 104 Carbon Dioxide 26 Anion Gap 9 BUN 30 H Creatinine 1.3 D Creat Clearance w eGFR 40.26 POC Glucometer Random Glucose 103 D Calcium 8.5 Phosphorus 2.9 D Magnesium 1.9 Total Bilirubin 0.5 D AST 18 ALT 20 Alkaline Phosphatase 81 Total Protein 6.1 L Albumin 2.7 L TSH Free T4 Active Medications Generic Name Dose Route Start Last Admin Trade Name Freq PRN Reason Stop Dose Admin Acetaminophen 650 mg 10/19/16 13:15 Tylenol - PO Q4H PRN FEVER OR PAIN Aspirin 81 mg 10/20/16 10:00 10/21/16 09:51 Asa - PO 81 mg DAILY [facility] Administration Cholecalciferol 2,000 unit 10/20/16 10:00 10/21/16 09:52 Vitamin D3 - PO 2,000 unit DAILY [facility] Administration Clonidine 0.2 mg 10/19/16 14:00 10/21/16 06:48 Catapres - PO 0.2 mg TID [facility] Administration Cyclobenzaprine HCl 10 mg 10/19/16 13:15 10/19/16 19:51 Flexeril - PO 10 mg TID PRN Administration MUSCLE SPASMS Insulin Aspart 1 vial 10/19/16 16:30 10/21/16 06:48 Novolog Vial Sliding Scale - SQ Not Given ACHS [facility] Protocol Insulin Detemir 35 units 10/19/16 22:00 10/20/16 21:40 Levemir Vial SQ 35 units HS [facility] Administration Lisinopril 40 mg 10/19/16 22:00 10/21/16 09:52 Prinivil PO 40 mg BID [facility] Administration Morphine Sulfate 4 mg 10/19/16 14:26 10/19/16 21:35 Morphine Injection - IVPUSH 4 mg Q6H PRN Administration PAIN Ondansetron HCl 4 mg 10/19/16 14:25 Zofran Injection IVPUSH Q6H PRN NAUSEA AND/OR VOMITING Pantoprazole Sodium 40 mg 10/22/16 10:00 Protonix - PO DAILY BURTON Quinidine Sulfate 200 mg 10/19/16 12:15 10/21/16 09:52 Quinidine Sulfate - PO 200 mg DAILY [facility] Administration ASSESSMENT/PLAN: chest pain r/o acs - likely atypical - cardiac markers negative x3 supplemental oxygen prn, morphine prn - continous cardiac monitoring, denies any CP, palpitations - cardiology input noted and appreciated, will need cardiology f/u for outpt echo and lexican per cardiology. Anemia -admission H&H 12.3/38 now down to 9.4/28, pt denies any active bleeding, last colonoscopy about 3 years ago, pt reports she was told it was ok and she was told to return for repeat in 2 years but did not f/u, also report an episode of nose bleed in the past week was on ASA and had stop taken it then resume once nose bleed stop, we will hold ASA for now. -will D/c zantac and place on daily protonix, -monitor H&H closely -stat anemia work up - close monitoring, repeat H&H in 6-8 hours and in AM, call if <8.5 - Patient had an episode of epistasix this afternoon,, pressure and ice applied , bleeding had stopped, patient was seen by Dr Soto, ENT consult prn, emphasized ENT f/u at D/c. RN insctruct to monitor closely and Notify [facility] if further episode of bleeding. HTN - continue lisinopril and clonidine, monitor BP, adjust meds prn -hold Hctz/triametherene due to CHACHA low salt diet IDDM - Hold metformin and januvia, fingersticks ACHS, SSI prn hyperglycemia - continue levermir - hemglobin a1c 8.3 noted -CCD CHACHA - Report Hx kidney stone with normal baseline creatinine - Improved was likely secondary to dehyration, S/p IV hydration, will D/c IVF, repeat BUN 30 creat normal at 1.3 - f/u bmp in am f/e/n - carb control/low sodium diet - gentle IVF ppx - protonix - heparin - scd - oob dispo:requires inpatient care Visit type - Emergency Visit Emergency Visit: Yes ED Registration Date: 10/21/16 Care time: The patient presented to the Emergency Department on the above date and was hospitalized for further evaluation of their emergent condition. - New Patient This patient is new to me today: Yes Date on this admission: 10/21/16 - Critical Care Critical Care patient: No - Discharge Referral Referred to [facility] Yes
--- NOTE | 2016-10-21 11:36 | PDOC ---
*Physical Exam - Vital Signs Last Vital Signs Temp Pulse Resp BP Pulse Ox 98.8 F 62 16 139/84 97 10/21/16 06:00 10/21/16 06:00 10/21/16 08:00 10/21/16 06:00 10/21/16 08:00 - Physical Exam Comments: 10/21/16 11:35 Asked by treating provider to place order for admission to inpatient services Reason: Acute anemia of unclear cause requiring further evaluation ED Treatment Course - LABORATORY CBC & Chemistry Diagram: 10/21/16 07:35 10/21/16 07:35 - ADDITIONAL ORDERS Additional order review: 10/19/16 09:15 RBC 4.89 MCV 78.7 L MCHC 31.8 L RDW 15.3 MPV 10.4 - Medications Given in the ED: ED Medications Discontinued Medications Generic Name Dose Route Start Last Admin Trade Name Freq PRN Reason Stop Dose Admin Aspirin 162 mg 10/19/16 09:29 10/19/16 09:41 Asa - PO 10/19/16 09:30 162 mg ONCE ONE Administration Clonidine 0.2 mg 10/19/16 09:55 10/19/16 09:55 Catapres - PO 10/19/16 09:56 0.2 mg NOW ONE Administration Hydromorphone HCl 0.5 mg 10/19/16 09:28 10/19/16 09:41 Dilaudid Injection - IVPUSH 10/19/16 09:29 0.5 mg ONCE ONE Administration Magnesium Sulfate 2 gm/ Sodium 104 mls @ 100 mls/hr 10/19/16 12:45 10/19/16 12: 52 Chloride IVPB 10/19/16 13:47 100 mls/hr ONCE ONE Administration Potassium Chloride/Sodium Chloride 1,000 mls @ 75 mls/hr 10/19/16 12:45 16:00 1/2ns+20meq Kcl IV 75 mls/hr ASDIR B[facility]TON Administration Ceftriaxone Sodium 2 gm/ 100 mls @ 200 mls/hr 10/20/16 09:47 10/20/16 10:48 Dextrose IVPB 10/20/16 10:16 200 mls/hr ONCE ONE Administration Sodium Chloride 1,000 mls @ 1,000 mls/hr 10/20/16 12:32 10/20/16 12:30 Normal Saline - IV 10/20/16 13:31 1,000 mls/hr ASDIR STA Administration Lisinopril 40 mg 10/19/16 12:45 10/19/16 12:52 Prinivil PO 10/19/16 12:46 40 mg ONCE ONE Administration Potassium Phos/Sodium Phos 1 packet 10/20/16 11:15 10/20/16 12:00 Phos-Nak Packet - PO 10/20/16 11:16 1 packet ONCE ONE Administration Ranitidine HCl 150 mg 10/20/16 10:00 10/21/16 09:51 Zantac - PO 10/21/16 11:20 150 mg DAILY BURTON Administration *DC/Admit/Observation/Transfer Diagnosis at time of Disposition: Chest pain, Abdominal pain - Discharge Dispostion Disposition: HOME Condition at time of disposition: Stable - Prescriptions
[2016-10-21] MEDS ORDERED: cloNIDine HCL 0.1 MG TABLET PO ONE (15:37)
[2016-10-21 16:54] LABS: MCH 26.6 pg (25.7-33.7); MCHC 33.3 g/dl (32.0-36.0); MEAN CELL VOLUME 79.8 fl (80-96); MEAN PLT VOLUME 9.5 fl (7.5-11.1); PLATELET COUNT 258 K/MM3 (134-434); RDW 15.9 % (11.6-15.6); WHITE BLOOD COUNT 10.1 K/mm3 (4.0-10.0)
[2016-10-21] MEDS: INSULIN DETEMIR 100 UNITS/ML MDV SQ SCH (21:49)
[2016-10-21] MEDS: morphine CARPU-JECT 4 MG/1 ML DISP.SYRIN IVPUSH PRN (22:03)
[2016-10-22 05:59] VITALS: PULSE 89; TEMP 99.1
[2016-10-22] MEDS: cloNIDine HCL 0.1 MG TABLET PO SCH (06:36)
[2016-10-22 07:50] LABS: CALCIUM 8.7 mg/dl (8.4-10.2); CREATININE 1.2 mg/dl (0.6-1.3)
[2016-10-22 08:04] LABS: INR 1.08 (0.82-1.09); PROTHROMBIN TIME (PATIENT) 12.1 SEC (10.2-13.0)
[2016-10-22 08:09] LABS: BASOPHIL 0.4 % (0-2.0); EOSINOPHIL 2.9 % (0-4.5); MCH 26.5 pg (25.7-33.7); MCHC 33.2 g/dl (32.0-36.0); MEAN PLT VOLUME 9.6 fl (7.5-11.1); NEUTROPHILS 71.3 % (42.8-82.8); PLATELET COUNT 308 K/MM3 (134-434); RDW 15.3 % (11.6-15.6); WHITE BLOOD COUNT 8.6 K/mm3 (4.0-10.0)
[2016-10-22] MEDS: INSULIN SLIDING SCALE (NOVOLOG) 1 VIAL SQ SCH (08:37)
[2016-10-22] MEDS ORDERED: PANTOPRAZOLE 40 MG TABLET (FP) PO SCH (10:00)
[2016-10-22] MEDS: LISINOPRIL 20 MG TABLET (FP) PO SCH (10:03)
[2016-10-22 10:04] VITALS: BP 140/78
--- NOTE | 2016-10-22 15:13 | DS ---
Physical Exam: SUBJECTIVE: Patient seen and examined OBJECTIVE: Vital Signs Period Temp Pulse Resp BP Sys/Pascual Pulse Ox Last 24 Hr 98.6 F-99.1 F 74-89 16-18 140-179/78-90 98-99 PHYSICAL EXAM GENERAL: The patient is awake, alert, and fully oriented, in no acute distress. HEAD: Normal with no signs of trauma. EYES: PERRL, extraocular movements intact, sclera anicteric, conjunctiva clear. ENT: Ears normal, nares patent, oropharynx clear without exudates, moist mucous membranes. NECK: Trachea midline, full range of motion, supple. LUNGS: Breath sounds equal, clear to auscultation bilaterally, no wheezes, no crackles, no accessory muscle use. HEART: Regular rate and rhythm, S1, S2 without murmur, rub or gallop. ABDOMEN: Soft, nontender, nondistended, normoactive bowel sounds, no guarding, no rebound, no hepatosplenomegaly, no masses. EXTREMITIES: 2+ pulses, warm, well-perfused, no edema. NEUROLOGICAL: Cranial nerves II through XII grossly intact. Normal speech, gait not observed. PSYCH: Normal mood, normal affect. SKIN: Warm, dry, normal turgor, no rashes or lesions noted. LABS Laboratory Results - last 24 hr 10/21/16 10/21/16 10/21/16 15:45 16:15 17:00 WBC 10.1 H RBC 3.78 Hgb 10.1 L Hct 30.2 L MCV 79.8 L MCHC 33.3 RDW 15.9 H Plt Count 258 MPV 9.5 Neutrophils % Lymphocytes % Monocytes % Eosinophils % Basophils % INR Sodium Potassium Chloride Carbon Dioxide Anion Gap BUN Creatinine POC Glucometer 209 Random Glucose Calcium Stool Occult Blood Negative 10/21/16 10/22/16 10/22/16 21:45 06:30 06:30 WBC 8.6 RBC 3.58 L Hgb 9.5 L Hct 28.6 L MCV 80.0 MCHC 33.2 RDW 15.3 Plt Count 308 MPV 9.6 Neutrophils % 71.3 Lymphocytes % 15.9 Monocytes % 9.5 Eosinophils % 2.9 Basophils % 0.4 INR Sodium 139 Potassium 3.9 Chloride 105 Carbon Dioxide 27 Anion Gap 7 L BUN 26 H Creatinine 1.2 POC Glucometer 359 Random Glucose 62 L D Calcium 8.7 Stool Occult Blood 10/22/16 10/22/16 06:30 06:46 WBC RBC Hgb Hct MCV MCHC RDW Plt Count MPV Neutrophils % Lymphocytes % Monocytes % Eosinophils % Basophils % INR 1.08 Sodium Potassium Chloride Carbon Dioxide Anion Gap BUN Creatinine POC Glucometer 64 Random Glucose Calcium Stool Occult Blood HOSPITAL COURSE: Date of Admission:10/21/16 Date of Discharge: 10/22/16 Patient is a 70 y/o female with a past medical history of IDDM, HTN, pyelonephritis, CKD. She reported moving heavy boxes on 10/16/16. She awoke the following day with pain to the center chest that radiated to the right shoulder. She reported the pain worsened upon movement and resolved spontaneously. Patient reported she awoke this morning with severe with a sharp pain to the center of the chest radiating to the neck that worsened upon position changes. Patient reported the pain is unrelieved with position changes and tylenol. ER course was notable for: (1) troponin x1 0.06 wnl, WBC 14 (2) EKG, sinus tachycardia, HR 102, normal axis, QTC 492, LVH unchanged from prior ekg 11/08 (3) CT of abd/pelvis, left sided hydronephrosis long standing, no acute pathology Atypical chest pain troponins neg x 3 no events on telemetry ECG no signs of ischemia Anemia h/h stable Epistaxis single episode, self-limiting with pressure HTN - continued lisinopril and clonidine IDDM - Novolog sliding scale coverage - Levemir - HgbA1c 8.3 Minutes to complete discharge: 35 Discharge Summary Reason For Visit: CHEST PAIN/ABDOMINAL PAIN Current Active Problems Abdominal pain (Acute) Chest pain (Acute) Condition: Improved - Instructions Diet, Activity, Other Instructions: resume low sodium/diabetic diet please continue to keep tracts of daily fingersticks continue all medications as prescribed please keep appointment that is scheduled with Dr Fleming, for 10/23/16 continue tylenol for pain as needed and flexeril for muscle spasms if shortness of breath or dizziness develops please return to the emergency department please follow up with Dr Medina within 1 week. Referrals: Jana Brunner MD [Staff Physician] - Eyal Medina MD [Primary Care Provider] - Disposition: HOME - Home Medications Comprehensive Discharge Medication List: Ambulatory Orders Allopurinol [Zyloprim -] 100 mg PO DAILY 10/19/16 Aspirin [ASA -] 81 mg PO DAILY 10/19/16 Cholecalciferol (Vitamin D3) [Vitamin D3] 2,000 unit PO DAILY 10/19/16 Clonidine HCl [Catapres] 0.2 mg PO TID 10/19/16 Insulin (Levemir) [Levemir Vial] 35 unit SQ DAILY 10/19/16 Liraglutide [Victoza -] 1.8 mg SQ DAILY@0700 10/19/16 Lisinopril [Prinivil -] 40 mg PO BID 10/19/16 Metformin HCl [Metformin HCl ER] 1,000 mg PO BID 10/19/16 Quinidine Sulfate 200 mg PO DAILY 10/19/16 Triamterene/Hydrochlorothiazid [Triamterene-Hctz 37.5-25 mg Cp] 1 each PO DAILY 10/19/16 Acetaminophen [Tylenol .Regular Strength -] 650 mg PO Q4H PRN #0 tablet Cyclobenzaprine HCl [Flexeril 10 mg] 10 mg PO TID PRN #60 tablet 10/20/16 Ranitidine [Zantac -] 150 mg PO DAILY tablet 10/20/16 This patient is new to me today: Yes Date on this admission: 10/26/16 Emergency Visit: Yes ED Registration Date: 10/21/16 Care time: The patient presented to the Emergency Department on the above date and was hospitalized for further evaluation of their emergent condition. Critical Care patient: No - Discharge Referral Referred to [facility] Med [facility].: Yes Physician Referral: Eyal Medina MD (Int Med)
[2016-10-29 12:38] LABS: SERUM IRON 18; TOTAL IRON BINDING CAPACITY 205; UIBC 187
== END 2016-10-22 09:00 | disposition home or self-care (01) | DRG 313 ==
LOC: FER 08:39 → FM/S 11:12 → OBSVTOIN 10-21 11:34
PROVIDERS: ADMIT Internal Medicine; ATTEND Nurse Practitioner Acute Care
DX: R07.89 Other chest pain (principal); N17.9 Acute kidney failure, unspecified; N13.30 Unspecified hydronephrosis; E78.5 Hyperlipidemia, unspecified; F17.200 Nicotine dependence, unspecified, uncomplicated; I12.9 Hypertensive chronic kidney disease with stage 1 through stage 4 chronic kidney disease, or unspecified chronic kidney disease; N18.9 Chronic kidney disease, unspecified; E11.9 Type 2 diabetes mellitus without complications; E86.0 Dehydration; N20.0 Calculus of kidney; D64.9 Anemia, unspecified
CPT/HCPCS: 36415; 71010-TC; 74176-TC; 76775-TC; 76856-TC; 80048; 80053; 81003; 81015; 82272; 82550; 82607; 82746; 83036; 83540; 83550; 83690; 83735; 84100; 84439; 84443; 84484; 85025; 85027; 85610; 87086; 93005; 99285-25; G0378; J3480

== ENCOUNTER 2016-12-15 20:52 | Inpatient (IN) | payer OTHER ==
--- NOTE | 2016-12-15 21:00 | PDOC ---
History of Present Illness - General History Source: Patient, Old Records Exam Limitations: No Limitations - History of Present Illness Initial Comments: 12/15/16 21:41 The patient is a 71 year old female with past medical history of hypertension and diabetes who presents to the ED with complaints of fever and abdominal pain for the past few days. The patient locates the pain to her upper abdomen and states that it radiates to her left side. The patient denies any modifying factors and reports taking 2 tylenol for her pain around 12 pm. Patient reports last BM was earlier today. The patient denies any associated nausea, vomiting, diarrhea, cough, shortness of breath, or chest pain. PAST MEDICAL HISTORY: See HPI. PAST SURGICAL HISTORY: S/p appendectomy, cholecystectomy, hernia repair FAMILY HISTORY: no pertinent history SOCIAL HISTORY: Pt lives with family and is employed. MEDICATIONS: reviewed ALLERGIES: As per nursing notes PCP: Dr. Eyal Medina General: Present: fever No weakness, no weight loss HEENT: No change in vision. No sore throat,. No ear pain CardioVascular: No chest pain or shortness of breath Respiratory:No cough, or wheezing. Gastrointestinal: Present: Abdominal pain no nausea, vomiting, diarrhea or constipation, No rectal bleeding Genitourinary: No dysuria, hematuria, or frequency Musculoskeletal: No joint or muscle pain or swelling Neurologic: No headache, vertigo, dizziness or loss of consciousness Psychiatric: nor depression Skin: No rashes or easy bruising Endocrine: no increased thirst or abnormal weight change Allergic: no skin or latex allergy All other systems reviewed and normal General: Well-nourished well-developed individual, moderate distress, moaning with discomfort HEENT: Throat: Normal, tonsils normal, no erythema or exudate Neck: Supple, no meningeal signs, no lymphadenopathy Eyes::Pupils equal reactive and round, extraocular motion intact Chest: Nontender to palpation Cardiac: S1-S2 normal, regular rate and rhythm, no murmurs rubs or gallops Respiratory: Lungs clear to auscultation bilateral Abdomen: Abdomen appears slightly distended, decreased bowel sounds. Tenderness to palpation on upper abdomen Extremities: Warm, dry, no cyanosis, clubbing, or edema Skin: No rashes Neuro: Alert and oriented x3, nonfocal exam, grossly intact, normal gait Psych: Normal mood and affect <Angle Dalal - Last Filed: 12/15/16 21:54> - General History Source: Patient Exam Limitations: No Limitations <Eryn Ramos I - Last Filed: 12/16/16 00:25> - General Chief Complaint: Pain, Acute Stated Complaint: ABDOMINAL PAIN Time Seen by Provider: 12/15/16 20:59 Past History <Angle Dalal - Last Filed: 12/15/16 21:54> - Past Medical History Anemia: No Asthma: No Cancer: No Cardiac Disorders: No CVA: No COPD: No CHF: No Dementia: No Diabetes: Yes GI Disorders: Yes (CONSTIPATION) Disorders: Yes (H/O URETERAL STENT) HTN: Yes Hypercholesterolemia: Yes Liver Disease: No Suicide Attempt (Hx): No Seizures: No Thyroid Disease: No - Surgical History Abdominal Surgery: Yes (HERNIA REPAIR WITH MESH IMPLANT) Appendectomy: No Cardiac Surgery: No Cholecystectomy: Yes Lung Surgery: No Neurologic Surgery: No Orthopedic Surgery: Yes (LT KNEE REPLACEMENT) - Psycho/Social/Smoking Cessation Hx Anxiety: No Suicidal Ideation: No Smoking Status: No Smoking History: Smoker current status UNK Have you smoked in the past 12 months: No Number of Cigarettes Smoked Daily: 0 Cigars Per Day: 0 Hx Alcohol Use: No Drug/Substance Use Hx: No Substance Use Type: None Hx Substance Use Treatment: No <Eryn Ramos I - Last Filed: 12/16/16 00:25> - Past Medical History Allergies/Adverse Reactions: Allergies Allergy/AdvReac Type Severity Reaction Status Date / Time latex Allergy Severe Swelling Verified 10/19/16 09:22 insulin lispro [From Humalog] Allergy Intermediate Generalized Verified 09:22 rash and itching naproxen [From Naprosyn] Allergy Swelling Verified 10/19/16 09:22 oxaprozin [From Daypro] Allergy Swelling Verified 10/19/16 09:22 saxagliptin HCl Allergy leg edema Verified 10/19/16 09:22 [From Onglyza] latex Allergy Severe Uncoded 10/19/16 09:22 Mushrooms Allergy Uncoded 10/19/16 09:22 naproxen Allergy Uncoded 10/19/16 09:22 Home Medications: Ambulatory Orders Aspirin [ASA -] 81 mg PO DAILY 10/19/16 Cholecalciferol (Vitamin D3) [Vitamin D3] 2,000 unit PO DAILY 10/19/16 Clonidine HCl [Catapres] 0.2 mg PO TID 10/19/16 Insulin (Levemir) [Levemir Vial] 55 unit SQ DAILY 10/19/16 Metformin HCl [Metformin HCl ER] 1,000 mg PO BID 10/19/16 Triamterene/Hydrochlorothiazid [Triamterene-Hctz 37.5-25 mg Cp] 1 each PO DAILY 10/19/16 Acetaminophen [Tylenol .Regular Strength -] 650 mg PO Q4H PRN #0 tablet Meloxicam [Mobic (Nf) -] 15 mg PO DAILY 12/15/16 ED Treatment Course - LABORATORY CBC & Chemistry Diagram: 12/15/16 21:22 12/15/16 21:22 - ADDITIONAL ORDERS Additional order review: 12/15/16 21:22 RBC 4.58 MCV 79.1 L MCHC 32.3 RDW 15.8 H MPV 10.1 Neutrophils % 84.6 H Lymphocytes % 8.3 D Monocytes % 4.6 Eosinophils % 0.8 Basophils % 1.7 D - Medications Given in the ED: ED Medications Discontinued Medications Generic Name Dose Route Start Last Admin Trade Name Freq PRN Reason Stop Dose Admin Morphine Sulfate 4 mg 12/15/16 21:33 12/15/16 21:34 Morphine Injection - IVPUSH 12/15/16 21:34 4 mg ONCE ONE Administration <Angle Dalal - Last Filed: 12/15/16 21:54> - LABORATORY CBC & Chemistry Diagram: 12/15/16 21:22 12/15/16 21:22 <Eryn Ramos I - Last Filed: 12/16/16 00:25> *DC/Admit/Observation/Transfer - Attestations Scribe Attestion: 12/15/16 21:52 Documentation prepared by Angle Dalal, acting as medical physics teacher for Eryn Ramos MD. <Angle Dalal - Last Filed: 12/15/16 21:54> - Discharge Dispostion Admit: Yes <Eryn Ramos I - Last Filed: 12/16/16 00:25> Diagnosis at time of Disposition: Fever of unknown origin, Hyperglycemia - Discharge Dispostion Condition at time of disposition: Stable - Referrals Referrals: Eyal Medina MD [Primary Care Provider] -
[2016-12-15] MEDS ORDERED: SODIUM CHLORIDE 1,000 ML IV ONE (21:03)
[2016-12-15 21:32] LABS: BASOPHIL 1.7 % (0-2.0); EOSINOPHIL 0.8 % (0-4.5); MCH 25.5 pg (25.7-33.7); MCHC 32.3 g/dl (32.0-36.0); MEAN CELL VOLUME 79.1 fl (80-96); MEAN PLT VOLUME 10.1 fl (7.5-11.1); NEUTROPHILS 84.6 % (42.8-82.8); PLATELET COUNT 281 K/MM3 (134-434); RDW 15.8 % (11.6-15.6)
[2016-12-15] MEDS ORDERED: morphine CARPU-JECT 10 MG/1 ML DISP.SYRIN ONE (21:32)
[2016-12-15] MEDS ORDERED: morphine CARPU-JECT 4 MG/1 ML DISP.SYRIN IVPUSH ONE ×2 (21:33→21:46)
[2016-12-15 21:48] LABS: ALBUMIN 3.4 g/dl (3.5-5.0); ALK PHOS 109 U/L (32-92); ANION GAP 12 (8-16); BILIRUBIN,TOTAL 1.6 mg/dl (0.2-1.0); CALCIUM 8.8 mg/dl (8.4-10.2); CO2 24 mmol/L (22-28); CREATININE 1.4 mg/dl (0.6-1.3); SGOT/AST 34 U/L (10-42); SGPT/ALT 23 U/L (10-40); TOT PROT 7.1 g/dl (6.4-8.3)
[2016-12-15 21:56] LABS: GLUCOSE,RANDOM 327 mg/dl (74-106)
[2016-12-15] MEDS ORDERED: INSULIN REGULAR HUMAN 100 UNITS/ML *VIAL IVPUSH ONE (22:03)
[2016-12-15 22:14] LABS: TROPONIN I (DFP) 0.08 ng/ml (0.03-0.50)
[2016-12-15] MEDS ORDERED: INSULIN REGULAR HUMAN 100 UNITS/ML *VIAL ONE (22:33)
[2016-12-15] MEDS ORDERED: HEMOQUE TEST 1 EACH EACH ONE (23:32)
[2016-12-15] MEDS ORDERED: PIPERACILLIN/TAZOB 3.375 GM/50 ML PRE-DOCKED IV ONE (23:55)
[2016-12-16] MEDS ORDERED: PIPERACILLIN/TAZOBACTAM 3.375 GM VIAL IVPB ONE (00:09)
[2016-12-16] MEDS ORDERED: ACETAMINOPHEN 325 MG TABLET (FP) PO PRN (01:03)
[2016-12-16] MEDS ORDERED: INSULIN REGULAR HUMAN 100 UNITS/ML *VIAL SQ ONE (01:29)
[2016-12-16] MEDS ORDERED: INSULIN DETEMIR 100 UNITS/ML MDV SQ ONE (01:41)
[2016-12-16 02:26] VITALS: BMI 35.7
--- NOTE | 2016-12-16 02:38 | HP ---
CHIEF COMPLAINT: fever, abdominal pain PCP: [facility] HISTORY OF PRESENT ILLNESS: This is a 71 year old female with a past medical history significant for IDDM, HTN, Pyelonephritis with L urethral stricture presented to the ED with fever and abdominal pain x 2 days. Pain is in upper abdomen and radiates to left side. Pt denies nausea, vomiting, chest pain, SOB, palpitations. Pt reports last bowel movement was earlier in the day. ER course was notable for: (1) WBC 16.0; lactic acid 2.097 (2) sodium 134 (3) BUN/Cr 24/1.4 (4) CT abd/pel with no acute findings as below Recent Travel: pt denies PAST MEDICAL HISTORY: IDDM HTN pyelonephritis CKD L urethral stricture PAST SURGICAL HISTORY: L urethral stent placement and removal Hernia repair LTKR appendectomy cholecystectomy Social History: Smoking: pt denies Alcohol: pt denies Drugs: pt denies Family History: mother alive, age 95, no medical problems father , age 80s, unknown cause, h/o HTN Allergies latex Allergy (Severe, Verified 10/19/16 09:22) Swelling ANAPHYLACTIC SHOCK insulin lispro [From Humalog] Allergy (Intermediate, Verified 10/19/16 09:22) Generalized rash and itching naproxen [From Naprosyn] Allergy (Verified 10/19/16 09:22) Swelling oxaprozin [From Daypro] Allergy (Verified 10/19/16 09:22) Swelling saxagliptin HCl [From Onglyza] Allergy (Verified 10/19/16 09:22) leg edema latex Allergy (Severe, Uncoded 10/19/16 09:22) ANAPHYLACTIC SHOCK Mushrooms Allergy (Uncoded 10/19/16 09:22) naproxen Allergy (Uncoded 10/19/16 09:22) HOME MEDICATIONS: 3 Medication Instructions Recorded Aspirin [ASA -] 81 mg PO DAILY 10/19/16 Cholecalciferol (Vitamin D3) 2,000 unit PO DAILY 10/19/16 [Vitamin D3] Clonidine HCl [Catapres] 0.2 mg PO TID 10/19/16 Insulin (Levemir) [Levemir Vial] 55 unit SQ DAILY 10/19/16 Metformin HCl [Metformin HCl ER] 1,000 mg PO BID 10/19/16 Triamterene/Hydrochlorothiazid 1 each PO DAILY 10/19/16 [Triamterene-Hctz 37.5-25 mg Cp] Acetaminophen [Tylenol .Regular 650 mg PO Q4H PRN #0 tablet 10/20/16 Strength -] Meloxicam [Mobic (Nf) -] 15 mg PO DAILY 12/15/16 REVIEW OF SYSTEMS CONSTITUTIONAL: Present: fever Absent: chills, diaphoresis, generalized weakness, malaise, loss of appetite, weight change HEENT: Absent: rhinorrhea, nasal congestion, throat pain, throat swelling, difficulty swallowing, mouth swelling, ear pain, eye pain, visual changes CARDIOVASCULAR: Absent: chest pain, syncope, palpitations, irregular heart rate, lightheadedness , peripheral edema RESPIRATORY: Absent: cough, shortness of breath, dyspnea with exertion, orthopnea, wheezing, stridor, hemoptysis GASTROINTESTINAL: Present: abdominal pain Absent: abdominal distension, nausea, vomiting, diarrhea, constipation, melena, hematochezia GENITOURINARY: Absent: dysuria, frequency, urgency, hesitancy, hematuria, flank pain, genital pain MUSCULOSKELETAL: Absent: myalgia, arthralgia, joint swelling, back pain, neck pain SKIN: Absent: rash, itching, pallor HEMATOLOGIC/IMMUNOLOGIC: Absent: easy bleeding, easy bruising, lymphadenopathy, frequent infections ENDOCRINE: Absent: unexplained weight gain, unexplained weight loss, heat intolerance, cold intolerance NEUROLOGIC: Absent: headache, focal weakness or paresthesias, dizziness, unsteady gait, seizure, mental status changes, bladder or bowel incontinence PSYCHIATRIC: Absent: anxiety, depression, suicidal or homicidal ideation, hallucinations. PHYSICAL EXAMINATION Vital Signs - 24 hr 3 12/15/16 12/15/16 20:53 23:35 Temperature 102.8 F H 99.6 F Pulse Rate 89 Pulse Rate [ 102 H Radial] Respiratory 20 18 Rate Blood Pressure 195/94 Blood Pressure 153/87 [Arm] O2 Sat by Pulse 98 95 Oximetry (%) GENERAL: Awake, alert, and fully oriented, in no acute distress. HEAD: Normal with no signs of trauma. EYES: Pupils equal, round and reactive to light, extraocular movements intact, sclera anicteric, conjunctiva clear. No lid lag. EARS, NOSE, THROAT: Ears normal, nares patent, oropharynx clear without exudates. Moist mucous membranes. NECK: Normal range of motion, supple without lymphadenopathy, JVD, or masses. LUNGS: Breath sounds equal, clear to auscultation bilaterally. No wheezes, and no crackles. No accessory muscle use. HEART: Regular rate and rhythm, normal S1 and S2 without murmur, rub or gallop. ABDOMEN: Soft, obese, not distended, normoactive bowel sounds, no guarding, no rebound, no masses. No hepatomegaly or splenomegaly. tender epigastric region , + left CVAT MUSCULOSKELETAL: Normal range of motion at all joints. No bony deformities or tenderness. No CVA tenderness. UPPER EXTREMITIES: 2+ pulses, warm, well-perfused. No cyanosis. No clubbing. No peripheral edema. LOWER EXTREMITIES: 2+ pulses, warm, well-perfused. No calf tenderness. No peripheral edema. NEUROLOGICAL: Cranial nerves II-XII intact. Normal speech. Normal gait. PSYCHIATRIC: Cooperative. Good eye contact. Appropriate mood and affect. SKIN: Warm, dry, normal turgor, no rashes or lesions noted, normal capillary refill. Laboratory Results - last 24 hr 3 12/15/16 12/15/16 12/15/16 12/15/16 12/15/16 21:22 21:22 21:22 21:40 23:35 WBC 16.0 H D RBC 4.58 Hgb 11.7 Hct 36.2 MCV 79.1 L MCHC 32.3 RDW 15.8 H Plt Count 281 MPV 10.1 Neutrophils % 84.6 H Lymphocytes % 8.3 D Monocytes % 4.6 Eosinophils % 0.8 Basophils % 1.7 D Sodium 134 L Potassium 3.5 Chloride 98 Carbon Dioxide 24 Anion Gap 12 BUN 24 H D Creatinine 1.4 H Creat Clearance w eGFR 36.86 POC Glucometer [phone] Random Glucose 327 H* Lactic Acid 2.097 H* Calcium 8.8 Total Bilirubin 1.6 H D AST 34 D ALT 23 D Alkaline Phosphatase 109 H D Creatine Kinase 67 Troponin I 0.08 Total Protein 7.1 Albumin 3.[address]/ABDOMEN PELVIS CT WITH CONTR ADDENDUM ADDENDUM #1 Addendum to report: Also noted is a stable 2.3 cm right adrenal adenoma. Previously noted 2.3 cm left ovarian cysts is resolved on today's exam. Nonspecific moderate bile duct dilatation within the left hepatic lobe with no gross hepatic mass lesion identified and air in the biliary tree with no definite dilation of the extrahepatic bile duct. Persistent left-sided hydronephrosis moderate degree, difficult to determine if this finding is related to ureteropelvic junction obstruction versus postsurgical thickening/ clips within the left infrarenal retroperitoneum-findings questioned with ER staff, no history of known of prior retroperitoneal surgery. In the region of the gallbladder fossa there is difficult visualization of the gallbladder, there is history of prior cholecystectomy and therefore the possibility of a prominent cystic duct remnant is a consideration, this finding is chronic and not changed when compared to prior imaging and can be further assessed with sonography. ORIGINAL REPORT CT abdomen and pelvis with intravenous and oral contrast Comparison studies: October 19, 2016 and November 07, 2014 Clinical history: Abdominal pain radiating to the left side-status post cholecystectomy, appendectomy and hernia repair Axial imaging completed with coronal and sagittal reformation after bolus injection 99 cc Visipaque with a power injector. Review of the previous examination from October 19, 2016 demonstrating long-standing left-sided hydronephrosis which was felt to be related to obstruction of the proximal ureter with multiple surgical clips noted in the left retroperitoneum-findings were noted to be stable since prior imaging November 20, 2012. Air in the biliary tree was present on prior imaging with surgical clips noted in the ashlyn hepatis. Mesh hernia repair of the anterior abdominal wall is also identified. Today's examination shows normal aeration in the lung bases with no infiltrate, nodule or pleural effusion identified. Small stable appearing fat-containing subpleural lipoma may be present incidentally in the posterior left lower lobe not significantly changed from prior imaging. Stable appearance of air in the biliary tree with no free air or pneumatosis and no signs of bowel obstruction or recurrent hernia Stable appearance of hernia repair with no recurrent hernia and normal opacification of the small bowel with no mural thickening. No dilation of the large bowel with fluid-filled bowel loops suggesting underlying enteritis No enlarged inguinal adenopathy. Review of the bone windows with no suspicious osseous lesions identified No compression fracture identified There appears to be dilation of the left intrahepatic bile duct which is unchanged when compared to 3 views examination from October 19, 2016. Follow-up assessment with abdominal sonography is recommended. No focal lesions in the liver or spleen with stable appearance of left hydronephrosis with normal enhancement of both kidneys and possible mild hydronephrosis right kidney. No aortic aneurysm. Small subcentimeter short axis para-aortic lymph nodes identified, correlation with renal function tests and follow-up sonography suggested. Normal visualization of the stomach including region of pancreas with no large bowel wall thickening and no signs of colitis or diverticulitis. No infiltration of the pelvic or abdominal fat with no abscess or fluid collections in the abdomen and pelvis identified Delayed images were obtained showing contrast in the collecting system and ureters with visualization of the right ureter to the level of the trigone of the bladder with reformation views completed showing distention of the left renal pelvis with contrast not definitely imaged in the region of the mid and distal left ureter on the MIP reformations views. Clinical correlation for history of previous surgical clips in the region of the left retroperitoneum , clinical correlation for the possibility of retroperitoneal fibrosis and postsurgical changes. Follow-up with urology is recommended. These findings are chronic and were present on previous imaging from October 19, 2016. Impression: CT imaging completed through the abdomen and pelvis with no free air or free fluid and no signs of bowel obstruction or recurrent hernia Dilation of the left intrahepatic bile duct suspected with prominent common bile duct and possible small fluid collection in the cholecystectomy fossa which is not significantly changed when compared to previous examination from October 19, 2016. Follow-up assessment with ultrasound suggested, correlation with abdominal sonography for follow-up assessment Hydronephrosis is noted bilaterally, delayed images demonstrate normal excretion of contrast from the right kidney, unable to demonstrate contrast in the mid and distal left ureter, hydronephrosis appears to be a chronic finding on the left side possibly related to postsurgical changes in the left retroperitoneum which were noted and described on previous imaging from October 19, 2016, clinical correlation for the possibility of retroperitoneal fibrosis recommend follow-up with urology. ASSESSMENT/PLAN: 71yF with PMH HTN, IDDM, pyelonephritis, L urethral stricture, CKD presented to the ED with abdoinal pain and fever. She is being admitted for further evaluation of same. sepsis, unknown etiology, suspect urine - given zosyn in ED - awaiting urinalysis, if indicative of UTI will start ceftriaxone daily, otherwise cont zosyn and ID consult - received 1L IVF in ED - repeat labs in am - ? pyelonephritis given CVAT, but may be chronic related to previous illness. Abdominal pain - abdominal sono to r/o pathology related to gallbladder fossa pathology - trial of pantoprazole hydronephrosis - chronic, consider urology consult if pain not improving to r/o new pathology IDDM - cont home levemir, takes at night, will give dose now - BGM ACHS, regular insulin sliding scale, allergy to humalog, but tolerates regular HTN - cont home clonidine, lisinopril, dose reduced to 40mg QD, max recommended dose - hold triamterene/HCTZ as slight bump in creatinine, restart when stable CKD - slightly elevated creatinine - will hold triamterene/HCTZ - repeat bmp in am DVT PPX - heparin 5000u SC TID FEN - received 1L NS in ED - repeat labs in AM - diabetic low sodium diet Dispo: Pt currently requires inpatient care for her emergent condition. Visit type - Emergency Visit Emergency Visit: Yes ED Registration Date: 12/16/16 Care time: The patient presented to the Emergency Department on the above date and was hospitalized for further evaluation of their emergent condition. - New Patient This patient is new to me today: Yes Date on this admission: 12/16/16 - Critical Care Critical Care patient: No
[2016-12-16 02:59] LABS: URINE APPEARANCE CLEAR; URINE COLOR STRAW
[2016-12-16 03:00] LABS: URINE BILIRUBIN NEGATIVE (NEGATIVE); URINE BLOOD 2 (NEGATIVE); URINE GLUCOSE (UA) 2+ (NEGATIVE); URINE KETONE NEGATIVE (NEGATIVE); URINE NITRITE NEGATIVE (NEGATIVE); URINE PROTEIN 2+ (NEGATIVE); URINE UROBILINOGEN NORMAL (0.2-1.0)
[2016-12-16 03:01] LABS: URINE BACTERIA RARE /hpf (NEGATIVE); URINE LEUK ESTERASE NEGATIVE (NEGATIVE); URINE RBC 7 /hpf (0-3); URINE WBC 1 (3-5)
[2016-12-16 03:02] LABS: URINE MUCUS RARE
[2016-12-16] MEDS: INSULIN REGULAR HUMAN 100 UNITS/ML *VIAL SQ ONE ×2 (06:53→07:33)
[2016-12-16] MEDS: cloNIDine HCL 0.1 MG TABLET PO SCH ×3 (06:54→22:42)
[2016-12-16] MEDS ORDERED: PIPERACILLIN/TAZOB 3.375 GM/50 ML PRE-DOCKED IV ONE (06:55)
[2016-12-16] MEDS: HEPARIN NA (PORCINE) 5,000 UNITS/ML 1ML VIAL SQ SCH ×3 (06:55→22:43)
[2016-12-16] MEDS ORDERED: REFRIGERATED ANITBIOTICS ONE (07:33)
[2016-12-16 08:30] LABS: BASOPHIL 0.3 % (0-2.0); MCH 26.3 pg (25.7-33.7); MCHC 33.4 g/dl (32.0-36.0); MEAN CELL VOLUME 78.7 fl (80-96); MEAN PLT VOLUME 10.2 fl (7.5-11.1); NEUTROPHILS 78.6 % (42.8-82.8); PLATELET COUNT 236 K/MM3 (134-434); RDW 15.9 % (11.6-15.6); WHITE BLOOD COUNT 14.4 K/mm3 (4.0-10.8)
[2016-12-16 08:31] LABS: ALBUMIN 2.5 g/dl (3.5-5.0); BILIRUBIN,TOTAL 1.4 mg/dl (0.2-1.0); COCKROFT - GAULT 55.0375; CREATININE 1.4 mg/dl (0.6-1.3); MAGNESIUM 1.5 mg/dL (1.8-2.4); PHOSPHOROUS 2.8 mg/dl (2.5-4.6); TOT PROT 5.6 g/dl (6.4-8.3)
--- NOTE | 2016-12-16 09:17 | PN ---
Progress Note (short form) - Note Progress Note: ID consult dictated imp/reccd 71 year old female admitted with 2 day history of fevers and chills, mid epigastric pain radiating to left flank reports similar pain in September but then pain radiated to left side and left shoulder with no fever no dysuria normal bm yesterday no travel sugars have been running high ct scan shows persistent left sided hydronephrosis at this time source of fever and pain is not clear would f/u cultures switch to ceftriaxone consider gu eval for chronic left hydronephrosis as pain is left sided f/u abdominal sonogram anemia and hematuria should be addressed as outpt d/w hospitalist
--- NOTE | 2016-12-16 09:42 | PN ---
Physical Exam: SUBJECTIVE: Patient seen and examined Pt c/o crampy epigastric pain radiates to left side of the abdomen,denies dysuria,frequency or hematuria N/V/diarrhea, fever, chills, cp, sob or palpitations. OBJECTIVE: Vital Signs Period Temp Pulse Resp BP Sys/Pascual Pulse Ox Last 24 Hr 98.5 F-98.8 F 71-85 20-20 135-139/61-73 95 GENERAL: The patient is awake, alert, and fully oriented, in no acute distress. HEAD: Normal with no signs of trauma. EYES: PERRL, extraocular movements intact, sclera anicteric, conjunctiva clear. No ptosis. ENT: Ears normal, nares patent, oropharynx clear without exudates, moist mucous membranes. NECK: Trachea midline, full range of motion, supple. LUNGS: Breath sounds equal, clear to auscultation bilaterally, no wheezes, no crackles, no accessory muscle use. HEART: Regular rate and rhythm, S1, S2 without murmur, rub or gallop. ABDOMEN: Soft,epigastric tenderness,nondistended, normoactive bowel sounds, no guarding, no rebound, no hepatosplenomegaly, no masses. EXTREMITIES: 2+ pulses, warm, well-perfused, no edema. NEUROLOGICAL: Cranial nerves II through XII grossly intact. Normal speech, gait not observed. PSYCH: Normal mood, normal affect. SKIN: Warm, dry, normal turgor, no rashes or lesions noted Laboratory Results - last 24 hr 12/16/16 12/16/16 12/16/16 06:59 07:45 07:45 WBC 14.4 H RBC 3.73 Hgb 9.8 L D Hct 29.4 L D MCV 78.7 L MCHC 33.4 RDW 15.9 H Plt Count 236 MPV 10.2 Neutrophils % 78.6 Lymphocytes % 12.0 D Monocytes % 8.1 Eosinophils % 1.0 Basophils % 0.3 Sodium 136 Potassium 3.0 L Chloride 101 Carbon Dioxide 27 Anion Gap 8 BUN 22 H Creatinine 1.4 H Creat Clearance w eGFR 36.86 POC Glucometer 269 Random Glucose 253 H D Calcium 8.0 L Phosphorus 2.8 Magnesium 1.5 L D Total Bilirubin 1.4 H AST 20 D ALT 18 D Alkaline Phosphatase 83 D Total Protein 5.6 L D Albumin 2.5 L D Active Medications Generic Name Dose Route Start Last Admin Trade Name Freq PRN Reason Stop Dose Admin Acetaminophen 650 mg 12/16/16 01:03 Tylenol - PO Q4H PRN FEVER OR PAIN Cholecalciferol 2,000 unit 12/16/16 10:00 Vitamin D3 - PO DAILY [facility] Clonidine 0.2 mg 12/16/16 06:00 12/16/16 06:54 Catapres - PO 0.2 mg TID [facility] Administration Heparin Sodium (Porcine) 5,000 unit 12/16/16 06:00 12/16/16 06:55 Heparin - SQ 5,000 unit TID [facility] Administration Ceftriaxone Sodium 1 gm/ 50 mls @ 100 mls/hr 12/16/16 10:00 Dextrose IVPB DAILY [facility] Insulin Detemir 55 units 12/16/16 22:00 Levemir Vial SQ HS [facility] Lisinopril 40 mg 12/16/16 10:00 Prinivil PO DAILY [facility] Non-Formulary Medication 15 mg 12/16/16 10:00 Meloxicam PO DAILY [facility] Pantoprazole Sodium 40 mg 12/16/16 10:00 Protonix 40mg Ivpb (Pre-Docked) IVPB DAILY [facility] CT abdomen/pelvis: CT imaging completed through the abdomen and pelvis with no free air or free fluid and no signs of bowel obstruction or recurrent hernia Dilation of the left intrahepatic bile duct suspected with prominent common bile duct and possible small fluid collection in the cholecystectomy fossa which is not significantly changed when compared to previous examination from October 19, 2016. Follow-up assessment with ultrasound suggested, correlation with abdominal sonography for follow-up assessment Hydronephrosis is noted bilaterally, delayed images demonstrate normal excretion of contrast from the right kidney, unable to demonstrate contrast in the mid and distal left ureter, hydronephrosis appears to be a chronic finding on the left side possibly related to postsurgical changes in the left retroperitoneum which were noted and described on previous imaging from October 19, 2016, clinical correlation for the possibility of retroperitoneal fibrosis recommend follow-up with urology. CxR: NAD Abdominal/Renal US - done, report pending ASSESSMENT/PLAN: This is a 71 year old female with a past medical history significant for IDDM, HTN, Pyelonephritis with L urethral stricture,CKD,presented to the ED with fever and abdominal pain x 2 days. Found to have leukocytosis with fever. *sepsis, unknown etiology, suspect urine infection - s/p zosyn in ED - febrile overnight, now afebrile - wbc trending down - crystal cultures pending - ID input appreciated, will cont on on Ceftriaxone - will f/u on US report *Abdominal pain,hx of Chronic hydronephrosis - CT abdomen reviewed - persistent left sided hydronephrosis and dilated -urology consult requested by Dr. Fleming, plan ? urethral stent placement - abdominal US - LFTS -normal except abnormal total bili - will cont on PPI * Chronic hydronephrosis - no urinary symptoms - urology consulted * Hypokalemia/low mg - replaced - will f/u on labs in am * IDDM- elevated - cont home Levemir, - BGM ACHS, regular insulin sliding scale, allergy to humalog, but tolerates regular - will hold off on Metformin s/p CT scan - consistent carb diet - recent Hgb Alc 92- 12/12/16 *HTN- BP controlled - cont home clonidine, lisinopril, dose reduced to 40mg QD, max recommended dose - hold triamterene/HCTZ as slight bump in creatinine, restart when stable *CKD - slightly elevated creatinine 1.4 - will hold triamterene/HCTZ - will cont on IVF *DVT PPX - heparin 5000u SC TID FEN: diabetic low sodium diet, IVF Dispo: Pt currently requires inpatient care for her emergent condition. Visit type - Emergency Visit Emergency Visit: Yes ED Registration Date: 12/16/16 Care time: The patient presented to the Emergency Department on the above date and was hospitalized for further evaluation of their emergent condition. - New Patient This patient is new to me today: Yes Date on this admission: 12/16/16 - Critical Care Critical Care patient: No
[2016-12-16] MEDS ORDERED: CEFTRIAXONE 50 ML ONE (09:43)
[2016-12-16] MEDS ORDERED: POTASSIUM CHLORIDE TABS 20 MEQ TABLET.ER (FP) PO ONE ×2 (09:58→15:00)
[2016-12-16] MEDS ORDERED: TRIAMTERENE AND HCTZ - 37.5 MG/25 MG CAPSULE PO SCH (10:00)
[2016-12-16] MEDS ORDERED: PATIENT'S OWN MEDICATION (NON-FORMULARY) (Meloxicam 15 MG) PO SCH (10:00)
[2016-12-16] MEDS ORDERED: ASPIRIN 81 MG CHEWABLE TABLETS PO SCH (10:00)
[2016-12-16] MEDS ORDERED: PANTOPRAZOLE SODIUM 40 MG in SODIUM CHLORIDE 100 ML IVPB SCH (10:00)
[2016-12-16] MEDS ORDERED: PATIENT'S OWN MEDICATION (NON-FORMULARY) (Lisinopril [Prinivil -] 40 MG) PO SCH (10:00)
[2016-12-16] MEDS ORDERED: INSULIN DETEMIR 100 UNITS/ML MDV SQ SCH (10:00)
[2016-12-16] MEDS ORDERED: MAGNESIUM SULF 50% (8.12 MEQ/2 ML-1 GM VIAL) IVPB ONE (10:01)
[2016-12-16] MEDS: KCL 10 MEQ IVPB 100 ML IVPB SCH ×2 (10:25→15:35)
[2016-12-16] MEDS: LISINOPRIL 20 MG TABLET (FP) PO SCH (10:25)
[2016-12-16] MEDS: CHOLECALCIFEROL (VITAMIN D3) 1,000 UNIT TABLET (FP) PO SCH (10:26)
[2016-12-16] MEDS: PANTOPRAZOLE SODIUM 40 MG/100 ML PRE-DOCKED IVPB SCH (10:26)
[2016-12-16] MEDS: CEFTRIAXONE 1 GM in DEXTROSE 5%-WATER - 50 ML IVPB SCH (10:26)
[2016-12-16] MEDS ORDERED: PT OWN MED DRAWER 7, Y5N ONE (10:38)
--- NOTE | 2016-12-16 11:15 | CONS ---
DATE OF CONSULTATION: DATE OF DICTATION: 12/16/2016 REQUESTED BY: The hospitalist service. This is a 71-year-old woman. 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 Past medical history of hypertension, diabetes. She presents with a 2-day history of fever and abdominal pain. She reports she had mid-epigastric discomfort that radiated to the left side accompanied by fever and chills. She has not had any nausea, vomiting, diarrhea. There is no cough. There is no shortness of breath. She had a normal bowel movement, yesterday. She did recently see her PMD, Dr. Medina, last week because her sugars have been running high, but she did not have fever at that time. She reports having had an admission in September, at which time she had the same mid-epigastric discomfort, but at that point it radiated to the left side and up to her left shoulder. There was no associated fever during that particular episode. The is no history of any travel. She has no sick contacts. In the emergency room, she was noted to have an elevated white count of 16 with a lactic acid of 2. She had a CAT scan of her abdomen and pelvis which had many chronic findings, similar to a CAT scan from September, including left hydronephrosis, as well as a dilated left intrahepatic bile duct, and also there was presence of abdominal mesh. PAST MEDICAL HISTORY: Notable for diabetes; hypertension; pyelonephritis; chronic kidney disease. She had a left urethral stent that has been removed. Surgical history is notable for hernia repair with mesh; left total knee replacement; she is getting ready for a right total knee; appendectomy; and cholecystectomy. FAMILY HISTORY: Notable for the fact her mother is 95, well, and lives with her. SOCIAL HISTORY: No history of any substance use. 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 REVIEW OF SYSTEMS: Is as per HPI. ALLERGIES: She is allergic to INSULIN, OXAPROZIN, SAXAGLIPTIN, LATEX, MUSHROOMS, and NAPROXEN. MEDICATIONS: At home include aspirin, vitamin D, clonidine, insulin, metformin, triamterene/hydrochlorothiazide, and meloxicam. PHYSICAL EXAMINATION: General: She is awake, and alert, in no acute distress. Vital signs: Temperature was 102.8 on admission, currently 98.5; blood pressure is 135/73; pulse is 71; respiratory rate is 20; she weighs 214; she is saturating 95% on room air. HEENT: She is normocephalic. Her eyes are anicteric. Neck: Supple. Lungs: Clear to auscultation. Heart: Regular rate and rhythm. Abdomen: Soft. She currently has very mild left upper quadrant discomfort on palpation. She has no CVA tenderness or spinal tenderness. Extremities: Without edema. She has a well healed left total knee replacement scar. Her white count on admission was 16 and this morning is 14.5, hemoglobin is 9.8, platelets are 236. BUN is 22 and creatinine is 1.4 with a total bilirubin of 1.4. Urinalysis is negative for white cells; has blood, glucose and protein; and cultures are pending. Imaging is as stated before. Chest x-ray is negative. In summary, this is a 71-year-old woman with unexplained fevers, left-sided flank pain that is of unclear etiology. She has chronic hydronephrosis on that side. Would switch her to ceftriaxone. Follow up cultures. As she does not appear antibiotic-experienced, would consider Urology evaluation given that the pain is on that side and follow up her abdominal sonogram. All of the above was discussed with the hospitalist. As well, she appears to have significant anemia in the past, as well as hematuria. I am not clear what the workup of this has been in the past, as well as she needs to be referred to her primary doctor for followup. I am unclear if she has been following up with Urology and whether she has had any cystoscopy done to evaluate this. ANUSHKA GARCIA M.D. [id number]
--- NOTE | 2016-12-16 16:04 | CONS ---
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 The patient states that the pain commenced at epigastrium and radiated to the left flank. She also claims to have had fever and chills while at home. She denies any nausea, vomiting, or diarrhea. The pain is constant, deep, and dull. She denies any coughing, chest pain, or palpitations. There is no shortness of breath. She has daily regular bowel movements. She was recently seen by her primary medical doctor for hyperglycemia. The patient states that she was admitted to the hospital in early September with the same complaint of epigastric pain that radiated to her left side. She states that nothing significant was found. She denies any history of travel. She denies any trauma. In the emergency room she was found to have an elevated white count of 16,000. A CAT scan of her abdomen and pelvis revealed dilation of the left intrahepatic bile duct suspected with prominent common bile duct and possible small fluid collection in the cholecystectomy fossa, which is not significant and has not changed from the previous examination of September 2016. There was hydronephrosis both in the right and left kidney. Delayed images demonstrated normal excretion of contrast from the right. There was contrast in the mid and distal left ureter. The left hydronephrosis appears to be chronic on the left side and related to postsurgical changes in the left retroperitoneum, which was noted on previous CAT scans. The patient does have history of total abdominal hysterectomy 12 years earlier. She is a 1, para 1. She has undergone an open cholecystectomy as well as incisional hernia repairs in the past. The patient does also have history of nephrolithiasis and underwent a left ureteroscopic laser lithotripsy with stent placement 2 years earlier. The stent was removed and a workup revealed calcium oxylate stones. The patient also underwent left knee replacement. ALLERGIES: SHE IS ALLERGIC TO NAPROSYN AND LATEX. She does complain of urinary frequency and nocturia x3. She denies dysuria, hematuria, or stress urinary incontinence. LABORATORY DATA: The latest laboratory reveals a white count of 16,000 with a hemoglobin of 11.7, hematocrit of 36.2, and the platelet count of 281. BUN of 22 and creatinine of 1.4. Her lactic acid was 2.097. Her glucose is 253. The patient's calcium of 8 and magnesium of 1.4 were in the low range. Her albumin was also low at 5.6. PHYSICAL EXAMINATION: Vital Signs: Presently the patient is afebrile. Her blood pressure is 135/73. Her pulse rate is 71. Respirations are 20. Her urine output is greater than 1000 mL per day. Abdomen: Presently soft. There is epigastric tenderness over the mid abdomen. No CVA tenderness is elicited. Hypogastrium is not tender. Her abdomen is globus. There is a large transverse right-sided scar from her previous gallbladder. There is no evidence of incisional hernias. Pelvic: Deferred. IMPRESSION: At present is history of left abdominal pain, possible left colic. No significant micturition disorder. She has history of nephrolithiasis in the past. She also has undergone pelvic surgery i.e. hysterectomy in the past with multiple hemoclips in the lower abdomen. Possibility of a ureteral obstruction secondary to fibrosis and/or encasement is possible. PLAN: We will recommend a diuretic nuclear renal scan to rule out any obstruction. If there is an obstruction, the patient will need a cystoscopy, left retrograde pyelogram, and left ureteral dilation. If there are no signs of obstruction, then the etiology of her pain is not urologic. Will follow the patient with you. NAVARRO NICHOLE M.D. [id number]
[2016-12-16] MEDS ORDERED: morphine CARPU-JECT 4 MG/1 ML DISP.SYRIN IVPUSH ONE (17:56)
[2016-12-16] MEDS ORDERED: Insulin (LOG) Aspart 100 UNITS/ML VIAL SQ ONE (22:30)
[2016-12-16] MEDS: INSULIN DETEMIR 100 UNITS/ML MDV SQ SCH (22:43)
[2016-12-17] MEDS: cloNIDine HCL 0.1 MG TABLET PO SCH ×2 (06:30→22:31)
[2016-12-17] MEDS: HEPARIN NA (PORCINE) 5,000 UNITS/ML 1ML VIAL SQ SCH ×2 (06:30→22:31)
[2016-12-17 08:44] LABS: ANION GAP 8 (8-16); CALCIUM 8.3 mg/dl (8.4-10.2); CO2 26 mmol/L (22-28); CREATININE 1.3 mg/dl (0.6-1.3); GLUCOSE,RANDOM 128 mg/dl (74-106); MAGNESIUM 2.1 mg/dL (1.8-2.4)
[2016-12-17 08:46] LABS: BASOPHIL 0.4 % (0-2.0); EOSINOPHIL 2.9 % (0-4.5); MCH 26.1 pg (25.7-33.7); MCHC 32.7 g/dl (32.0-36.0); MEAN CELL VOLUME 79.8 fl (80-96); MEAN PLT VOLUME 9.7 fl (7.5-11.1); PLATELET COUNT 214 K/MM3 (134-434); WHITE BLOOD COUNT 7.2 K/mm3 (4.0-10.8)
[2016-12-17] MEDS ORDERED: CEFTRIAXONE 50 ML ONE (09:59)
[2016-12-17] MEDS: LISINOPRIL 20 MG TABLET (FP) PO SCH (10:31)
[2016-12-17] MEDS: CEFTRIAXONE 1 GM in DEXTROSE 5%-WATER - 50 ML IVPB SCH (10:31)
[2016-12-17] MEDS: PANTOPRAZOLE SODIUM 40 MG/100 ML PRE-DOCKED IVPB SCH (10:32)
[2016-12-17] MEDS: CHOLECALCIFEROL (VITAMIN D3) 1,000 UNIT TABLET (FP) PO SCH (10:32)
--- NOTE | 2016-12-17 13:26 | PN ---
Progress Note (short form) - Note Progress Note: feels better pain is resolving no fevers Vital Signs Period Temp Pulse Resp BP Sys/Pascual Pulse Ox Last 24 Hr 97.9 F-99.0 F 56-73 16-20 131-162/64-78 95-96 cor-rrr lungs clear abd soft,nt ext no edema CBC, BMP 12/17/16 06:30 12/17/16 06:30 Microbiology 12/16/16 00:05 Urine - Urine Clean Catch Urine Culture - Final Contaminated: Please Repeat 12/15/16 21:40 Blood - Peripheral Venous Blood Culture - Preliminary NO GROWTH OBTAINED AFTER 24 HOURS, INCUBATION TO CONTINUE FOR 4 DAYS. 12/15/16 21:40 Blood - Peripheral Venous Blood Culture - Preliminary NO GROWTH OBTAINED AFTER 24 HOURS, INCUBATION TO CONTINUE FOR 4 DAYS. a/p fevers chronic hydronephrosis for renal scan to r/o obstruction continue ceftriaxone, wbc improving, fever resolving
--- NOTE | 2016-12-17 15:05 | PN ---
Physical Exam: SUBJECTIVE: Patient seen and examined. Pain extends from mid-sternum, under left breast and across the left flank. Denies dysuria but admits to hesitancy and urgency. OBJECTIVE: Vital Signs Period Temp Pulse Resp BP Sys/Pascual Pulse Ox Last 24 Hr 97.9 F-99.0 F 55-73 16-20 131-162/64-78 95-99 GENERAL: The patient is awake, alert, and fully oriented, in no acute distress. HEAD: Normal with no signs of trauma. EYES: PERRL, extraocular movements intact, sclera anicteric, conjunctiva clear. No ptosis. LUNGS: Breath sounds equal, clear to auscultation bilaterally, no wheezes, no crackles, no accessory muscle use. HEART: Regular rate and rhythm, S1, S2 without murmur, rub or gallop. ABDOMEN: Soft, nontender, nondistended, normoactive bowel sounds, no guarding, no rebound, no hepatosplenomegaly, no masses. + Left-sided CVA tenderness EXTREMITIES: 2+ pulses, warm, well-perfused, no edema. NEUROLOGICAL: Cranial nerves II through XII grossly intact. Normal speech, gait not observed. PSYCH: Normal mood, normal affect. Laboratory Results - last 24 hr 12/16/16 12/16/16 12/17/16 17:28 22:41 06:30 WBC 7.2 D RBC 3.72 Hgb 9.7 L Hct 29.7 L MCV 79.8 L MCHC 32.7 RDW 16.0 H Plt Count 214 MPV 9.7 Neutrophils % 67.0 Lymphocytes % 21.7 D Monocytes % 8.0 Eosinophils % 2.9 D Basophils % 0.4 Sodium Potassium Chloride Carbon Dioxide Anion Gap BUN Creatinine POC Glucometer 196 261 Random Glucose Calcium Magnesium 12/17/16 12/17/16 06:30 11:39 WBC RBC Hgb Hct MCV MCHC RDW Plt Count MPV Neutrophils % Lymphocytes % Monocytes % Eosinophils % Basophils % Sodium 141 Potassium 4.2 D Chloride 107 Carbon Dioxide 26 Anion Gap 8 BUN 24 H Creatinine 1.3 POC Glucometer 127 Random Glucose 128 H D Calcium 8.3 L Magnesium 2.1 D Active Medications Generic Name Dose Route Start Last Admin Trade Name Freq PRN Reason Stop Dose Admin Acetaminophen 650 mg 12/16/16 01:03 Tylenol - PO Q4H PRN FEVER OR PAIN Cholecalciferol 2,000 unit 12/16/16 10:00 12/17/16 10:32 Vitamin D3 - PO 2,000 unit DAILY [facility] Administration Clonidine 0.2 mg 12/16/16 06:00 12/17/16 06:30 Catapres - PO 0.2 mg TID [facility] Administration Heparin Sodium (Porcine) 5,000 unit 12/16/16 06:00 12/17/16 06:30 Heparin - SQ 5,000 unit TID [facility] Administration Ceftriaxone Sodium 1 gm/ 50 mls @ 100 mls/hr 12/16/16 10:00 12/17/16 10:31 Dextrose IVPB 100 mls/hr DAILY [facility] Administration Insulin Aspart 4 units 12/16/16 22:30 12/16/16 23:15 Novolog SQ 12/16/16 22:31 4 units NOW ONE Administration Insulin Detemir 55 units 12/16/16 22:00 12/16/16 22:43 Levemir Vial SQ 55 units HS [facility] Administration Lisinopril 40 mg 12/16/16 10:00 12/17/16 10:31 Prinivil PO 40 mg DAILY [facility] Administration Non-Formulary Medication 15 mg 12/16/16 10:00 12/16/16 15:11 Meloxicam PO Not Given DAILY [facility] Pantoprazole Sodium 40 mg 12/16/16 10:00 12/17/16 10:32 Protonix 40mg Ivpb (Pre-Docked) IVPB 40 mg DAILY [facility] Administration ASSESSMENT/PLAN: 71 year-old female with a significant PMH of HTN, IDDM, reucrrent pyelonephritis with left ureteral stricture. Admitted for severe sepsis likely secondary to pyelonephritis. Severe sepsis likely secondary to pyelonephritis --afebrile, leukocytosis resolved --still with significant left-sided CVA tenderness --continue ceftriaxone (day #2) --urine culture pending --pain management Chronic kidney disease --Cr 1.3 Left-sided hydronephrosis, chronic --urology consult pending Common bile duct dilitation --12/15 CTAP: air accumulation in CBD, cannot exclude interductal calculi --GI consult requested IDDM --continue Levemir 55U qhs --Novolog sliding scale coverage Hypertension --continue lisinopril, clonidine --Cr 1.3, baseline closer to 1.0; continue to hold triamterene/HCTZ --stop Meloxicam; no NSAIDS F/E/N Fluids: PO intake adequate Electrolytes: replete as indicated Nutrition: diabetic, low sodium DVT prophylaxis: subq heparin, oob, ambulation Dispo: continues to require inpatient care. Full code. Visit type - Emergency Visit Emergency Visit: Yes ED Registration Date: 12/16/16 Care time: The patient presented to the Emergency Department on the above date and was hospitalized for further evaluation of their emergent condition. - New Patient This patient is new to me today: Yes Date on this admission: 12/17/16 - Critical Care Critical Care patient: No
[2016-12-17 15:28] LABS: PH,URINE 5.5 (4.5-8); URINE APPEARANCE Clear; URINE BILIRUBIN Negative (NEGATIVE); URINE BLOOD Trace-lysed (NEGATIVE); URINE GLUCOSE (UA) Negative (NEGATIVE); URINE KETONE Negative (NEGATIVE); URINE LEUK ESTERASE Negative (NEGATIVE); URINE NITRITE Negative (NEGATIVE); URINE UROBILINOGEN 1.0 E.U/dl (0.2-1.0)
[2016-12-17 15:29] LABS: URINE COLOR YELLOW; URINE PROTEIN 2+ (NEGATIVE)
[2016-12-17 15:43] LABS: URINE BACTERIA FEW /hpf (NEGATIVE); URINE RBC 0-2 /hpf (0-3); URINE WBC 0-1 (3-5)
[2016-12-17] MEDS ORDERED: morphine CARPU-JECT 2 MG/1 ML DISP.SYRIN IVPUSH ONE (21:26)
[2016-12-17] MEDS: INSULIN DETEMIR 100 UNITS/ML MDV SQ SCH (22:46)
[2016-12-18] MEDS ORDERED: morphine CARPU-JECT 2 MG/1 ML DISP.SYRIN ONE (01:40)
[2016-12-18] MEDS ORDERED: morphine CARPU-JECT 2 MG/1 ML DISP.SYRIN IVPUSH ONE (01:57)
[2016-12-18] MEDS: HEPARIN NA (PORCINE) 5,000 UNITS/ML 1ML VIAL SQ SCH ×3 (06:21→22:16)
[2016-12-18] MEDS: cloNIDine HCL 0.1 MG TABLET PO SCH ×3 (06:21→22:17)
[2016-12-18] MEDS ORDERED: morphine CARPU-JECT 2 MG/1 ML DISP.SYRIN IVPUSH PRN (08:21)
[2016-12-18 09:19] LABS: BASOPHIL 0.8 % (0-2.0); EOSINOPHIL 1.8 % (0-4.5); MCH 26.1 pg (25.7-33.7); MCHC 33.1 g/dl (32.0-36.0); MEAN PLT VOLUME 10.2 fl (7.5-11.1); NEUTROPHILS 78.9 % (42.8-82.8); PLATELET COUNT 285 K/MM3 (134-434); RDW 15.9 % (11.6-15.6); WHITE BLOOD COUNT 9.3 K/mm3 (4.0-10.8)
[2016-12-18] MEDS: CHOLECALCIFEROL (VITAMIN D3) 1,000 UNIT TABLET (FP) PO SCH (09:32)
[2016-12-18] MEDS: PANTOPRAZOLE SODIUM 40 MG/100 ML PRE-DOCKED IVPB SCH (09:33)
[2016-12-18] MEDS: LISINOPRIL 20 MG TABLET (FP) PO SCH (09:33)
[2016-12-18] MEDS: CEFTRIAXONE 1 GM in DEXTROSE 5%-WATER - 50 ML IVPB SCH (09:33)
[2016-12-18 09:35] LABS: ALBUMIN 2.7 g/dl (3.5-5.0); ALK PHOS 87 U/L (32-92); ANION GAP 8 (8-16); BILIRUBIN,TOTAL 1.3 mg/dl (0.2-1.0); CALCIUM 8.6 mg/dl (8.4-10.2); CO2 26 mmol/L (22-28); CREATININE 1.1 mg/dl (0.6-1.3); GLUCOSE,RANDOM 71 mg/dl (74-106); SGOT/AST 19 U/L (10-42); SGPT/ALT 12 U/L (10-40); TOT PROT 6.2 g/dl (6.4-8.3)
--- NOTE | 2016-12-18 10:12 | PN ---
Progress Note, Physician History of Present Illness: C/O L flank pain No c/o dysuria Temps down; afebrile WBC WNL BC no growth - Current Medication List Current Medications: Active Medications Acetaminophen (Tylenol -) 650 mg PO Q4H PRN PRN Reason: FEVER OR PAIN Cholecalciferol (Vitamin D3 -) 2,000 unit PO DAILY [facility] Last Admin: 12/18/16 09:32 Dose: 2,000 unit Clonidine (Catapres -) 0.2 mg PO TID [facility] Last Admin: 12/18/16 06:21 Dose: 0.2 mg Heparin Sodium (Porcine) (Heparin -) 5,000 unit SQ TID [facility] Last Admin: 12/18/16 06:21 Dose: 5,000 unit Ceftriaxone Sodium 1 gm/ (Dextrose) 50 mls @ 100 mls/hr IVPB DAILY [facility] Last Admin: 12/18/16 09:33 Dose: 100 mls/hr Insulin Detemir (Levemir Vial) 55 units SQ HS [facility] Last Admin: 12/17/16 22:46 Dose: 55 units Lisinopril (Prinivil) 40 mg PO DAILY [facility] Last Admin: 12/18/16 09:33 Dose: 40 mg Morphine Sulfate (Morphine Injection -) 2 mg IVPUSH Q4H PRN PRN Reason: PAIN Last Admin: 12/18/16 08:32 Dose: 2 mg Pantoprazole Sodium (Protonix 40mg Ivpb (Pre-Docked)) 40 mg IVPB DAILY [facility] Last Admin: 12/18/16 09:33 Dose: 40 mg - Objective Vital Signs: Vital Signs Temperature 98.8 F 12/18/16 06:50 Pulse Rate 71 12/18/16 06:50 Respiratory Rate 18 12/18/16 08:48 Blood Pressure 146/67 12/18/16 06:50 O2 Sat by Pulse Oximetry (%) 96 12/18/16 08:48 Constitutional: Yes: No Distress, Obese Eyes: Yes: Conjunctiva Clear Cardiovascular: Yes: Regular Rate and Rhythm, S1, S2 Respiratory: Yes: CTA Bilaterally Gastrointestinal: Yes: Tenderness, Other (+ L flank tenderness to palpation) Labs: CBC, BMP 12/18/16 08:00 12/18/16 07:00 Assessment/Plan L flank pain, fever/ leukocytosis- possible pyelo For renal scan Continue empiric ceftriaxone
--- NOTE | 2016-12-18 10:25 | PN ---
Progress Note (short form) - Note Progress Note: pt had uneventful weekend. WBC down to 7K from 16K. pt is afebrile, voiding well , no dysuria. Still w LUQ/ Lt CVA pain. Abd soft, LUQ tenderness, LT CVA tenderness, no rebound, no guarding Pt to go to [facility] for a diuretic nuclear renal scan to r/ o obstructive uropathy on LT side. If scan is + will recommend pt undergo cystoscopy, Lt retrograde pyelogrm, Lt ureteral dilation and Lt stent placement. Problem List - Problems (1) Abdominal pain Code(s): R10.9 - UNSPECIFIED ABDOMINAL PAIN (2) Chest pain Code(s): R07.9 - CHEST PAIN, UNSPECIFIED (3) Fever of unknown origin (FUO) Code(s): R50.9 - FEVER, UNSPECIFIED (4) Hyperglycemia Code(s): R73.9 - HYPERGLYCEMIA, UNSPECIFIED (5) Colitis Code(s): K52.9 - NONINFECTIVE GASTROENTERITIS AND COLITIS, UNSPECIFIED
--- NOTE | 2016-12-18 12:37 | PN ---
Progress Note (short form) - Note Progress Note: Patient seen and consult dictated. Patient with CT showing pneumobilia and mild bile duct dilatation. Has no RUQ discomfort and has normal LFTs. Review of prior CT scans (to 2011) show similar findings and patient believes she had GB surgery along with bile duct exploration/surgery [address] findings are new or of clinical significance presently. No hepatobiliary workup recommended.
--- NOTE | 2016-12-18 13:32 | PN ---
[id number] female with a significant PMH of HTN, IDDM, s/p cholecystectomy, reucrrent pyelonephritis with left ureteral stricture. Admitted for severe sepsis likely secondary to pyelonephritis. Vital Signs Period Temp Pulse Resp BP Sys/Pascual Pulse Ox Last 24 Hr 98.4 F-98.8 F 55-71 18-20 133-176/66-81 96-99 GENERAL: The patient is awake, alert, and fully oriented, in no acute distress. HEAD: Normal with no signs of trauma. EYES: PERRL, extraocular movements intact, sclera anicteric, conjunctiva clear. No ptosis. ENT: Ears normal, nares patent, oropharynx clear without exudates, moist mucous membranes. NECK: Trachea midline, full range of motion, supple. LUNGS: Breath sounds equal, clear to auscultation bilaterally, no wheezes, no crackles, no accessory muscle use. HEART: Regular rate and rhythm, S1, S2 without murmur, rub or gallop. ABDOMEN: Soft, nontender, nondistended, normoactive bowel sounds, no guarding, no rebound, no hepatosplenomegaly, no masses.left CVA tenderness EXTREMITIES: 2+ pulses, warm, well-perfused, no edema. NEUROLOGICAL: Cranial nerves II through XII grossly intact. Normal speech, gait not observed. PSYCH: Normal mood, normal affect. SKIN: Warm, dry, normal turgor, no rashes or lesions noted Laboratory Results - last 24 hr 12/17/16 12/17/16 12/18/16 15:00 22:42 06:20 WBC RBC Hgb Hct MCV MCHC RDW Plt Count MPV Neutrophils % Lymphocytes % Monocytes % Eosinophils % Basophils % Sodium Potassium Chloride Carbon Dioxide Anion Gap BUN Creatinine Creat Clearance w eGFR POC Glucometer 258 108 Random Glucose Calcium Phosphorus Magnesium Total Bilirubin Direct Bilirubin AST ALT Alkaline Phosphatase Total Protein Albumin Urine Color Yellow Urine Appearance Clear Urine pH 5.5 Ur Specific [place] 1.015 Urine Protein 2+ H Urine Glucose (UA) Negative Urine Ketones Negative Urine Blood Trace-lysed Urine Nitrite Negative Urine Bilirubin Negative Urine Urobilinogen 1.0 e.u/dl Ur Leukocyte Esterase Negative Urine RBC 0-2 Urine WBC 0-1 Urine Bacteria Few 12/18/16 12/18/16 12/18/16 07:00 08:00 11:05 WBC 9.3 RBC 3.78 Hgb 9.9 L Hct 29.9 L MCV 79.0 L MCHC 33.1 RDW 15.9 H Plt Count 285 D MPV 10.2 Neutrophils % 78.9 Lymphocytes % 12.6 D Monocytes % 5.9 Eosinophils % 1.8 Basophils % 0.8 Sodium 142 Potassium 4.4 Chloride 108 H Carbon Dioxide 26 Anion Gap 8 BUN 20 H Creatinine 1.1 Creat Clearance w eGFR Y POC Glucometer Random Glucose 71 L D Calcium 8.6 Phosphorus 3.0 Magnesium 2.0 Total Bilirubin 1.3 H Direct Bilirubin 0.2 AST 19 ALT 12 D Alkaline Phosphatase 87 Total Protein 6.2 L Albumin 2.7 L Urine Color Urine Appearance Urine pH Ur Specific [place] Urine Protein Urine Glucose (UA) Urine Ketones Urine Blood Urine Nitrite Urine Bilirubin Urine Urobilinogen Ur Leukocyte Esterase Urine RBC Urine WBC Urine Bacteria Active Medications Generic Name Dose Route Start Last Admin Trade Name Freq PRN Reason Stop Dose Admin Acetaminophen 650 mg 12/16/16 01:03 Tylenol - PO Q4H PRN FEVER OR PAIN Cholecalciferol 2,000 unit 12/16/16 10:00 12/18/16 09:32 Vitamin D3 - PO 2,000 unit DAILY BURTON Administration Clonidine 0.2 mg 12/16/16 06:00 12/18/16 06:21 Catapres - PO 0.2 mg TID BURTON Administration Heparin Sodium (Porcine) 5,000 unit 12/16/16 06:00 12/18/16 06:21 Heparin - SQ 5,000 unit TID BURTON Administration Ceftriaxone Sodium 1 gm/ 50 mls @ 100 mls/hr 12/16/16 10:00 12/18/16 09:33 Dextrose IVPB 100 mls/hr DAILY BURTON Administration Insulin Detemir 55 units 12/16/16 22:00 12/17/16 22:46 Levemir Vial SQ 55 units HS BURTON Administration Lisinopril 40 mg 12/16/16 10:00 12/18/16 09:33 Prinivil PO 40 mg DAILY BURTON Administration Morphine Sulfate 2 mg 12/18/16 08:21 12/18/16 08:32 Morphine Injection - IVPUSH 2 mg Q4H PRN Administration PAIN Pantoprazole Sodium 40 mg 12/16/16 10:00 12/18/16 09:33 Protonix 40mg Ivpb (Pre-Docked) IVPB 40 mg DAILY BURTON Administration Microbiology 12/15/16 21:40 Blood - Peripheral Venous Blood Culture - Preliminary NO GROWTH OBTAINED AFTER 48 HOURS, INCUBATION TO CONTINUE FOR 3 DAYS. 12/15/16 21:40 Blood - Peripheral Venous Blood Culture - Preliminary NO GROWTH OBTAINED AFTER 48 HOURS, INCUBATION TO CONTINUE FOR 3 DAYS. 12/16/16 00:05 Urine - Urine Clean Catch Urine Culture - Final Contaminated: Please Repeat imaging cT scan abdomen pelvis with contrast: Persistent left-sided hydronephrosis, moderate bile duct dilation, chronic and unchanged ASSESSMENT/PLAN: 1) Severe sepsis likely secondary to pyelonephritis - afebrile no leukocytosis noted - continue Rocephin (day 3) - Repeat urine culture is pending, blood cultures ntd - ID consulted and following 2) acute on Chronic kidney disease - creatine 1.1, close to baseline Left-sided hydronephrosis, chronic - CT scan of abdomen and pelvis reviewed moderate left-sided hydronephrosis noted however unable to determine if etiology related to obstruction - Urology Dr. Fleming ( patient's private urologist) consulted and following - Patient is pending a renal scan today 3) common bile duct dilitation - CT scanof abdomen and pelvis reviewed, patient has a history of chronic bile duct dilation unchanged from prior - GI Dr. Cedillo consulted and followed 4) IDDM - -continue Levemir 55U qhs - -Novolog sliding scale coverage 5) Hypertension - continue lisinopril, clonidine - continue to hold triamterene/HCTZ due to CHACHA - no NSAIDS F/E/N Fluids: PO intake adequate Electrolytes: replete as indicated Nutrition: diabetic, low sodium DVT prophylaxis: subq heparin, oob, ambulation Dispo: continues to require inpatient care. Full code. Visit type - Emergency Visit Emergency Visit: Yes ED Registration Date: 12/16/16 Care time: The patient presented to the Emergency Department on the above date and was hospitalized for further evaluation of their emergent condition. - New Patient This patient is new to me today: No - Critical Care Critical Care patient: No - Discharge Referral Referred to [facility] Med P.C.: Yes Physician Referral: Eyal Medina MD (Int Med)
--- NOTE | 2016-12-18 19:39 | CONS ---
DATE OF CONSULTATION: 12/18/2016 HISTORY OF PRESENT ILLNESS: I was asked to evaluate this 71-year-old female with an abnormal CAT scan showing possible biliary ductal dilatation and pneumobilia. The patient is a 71-year-old female with a history of hypertension, diabetes, and admission with possible pyelonephritis. She has a history of pyelonephritis in the past with a left ureteral stent previous. She also has had a hernia repair with mesh, left total knee replacement, appendectomy and cholecystectomy. She believes the cholecystectomy was approximately 40 years ago at [facility], and was associated with stones in the bile duct and bile duct surgery as well. The patient is currently being evaluated for abdominal pain and possible pyelonephritis and underwent a CAT scan of the abdomen and pelvis which showed nonspecific bile duct dilatation with left hepatic lobe and some air in the biliary tree. In view of this findings, GI consult was requested. The patient has had no jaundice or right upper quadrant pain. Review of her laboratory tests include normal AST, ALT, alkaline phosphatase, and bilirubin. On examination, the patient is a well developed overweight female laying in bed. She is on antibiotics with probable pyelonephritis and complains of pain along the left flank, for which she is being evaluated currently. Review of prior imaging studies from January 2012 included a CAT scan which also showed mild pneumobilia. There was a description on an additional scan in July of 2012 also of pneumobilia and focal bile duct dilatation in the left hepatic lobe as well. In view of the patient's prior gallbladder and likely bile duct surgery and prior CAT scan showing similar findings to the present study including pneumobilia and recently dilated bile duct, it is unlikely that her current findings are due and of clinical significance. The patient has normal LFTs and no right upper quadrant pain. I have reviewed the prior findings with the patient and would agree with continuing her urologic workup. No hepatobiliary workup is recommended at this time. NARINDER ROGER M.D. [id number]
[2016-12-18] MEDS ORDERED: INSULIN (NOVOLOG) ASPART 100 UNITS/ML 10ML VIAL ONE (22:05)
[2016-12-18] MEDS: INSULIN DETEMIR 100 UNITS/ML MDV SQ SCH (22:17)
[2016-12-19 06:44] VITALS: BP 153/70; PULSE 63; TEMP 98.2
[2016-12-19] MEDS: cloNIDine HCL 0.1 MG TABLET PO SCH ×2 (06:48→08:29)
[2016-12-19] MEDS: HEPARIN NA (PORCINE) 5,000 UNITS/ML 1ML VIAL SQ SCH ×2 (06:48→08:29)
[2016-12-19] MEDS: LISINOPRIL 20 MG TABLET (FP) PO SCH (09:33)
[2016-12-19] MEDS: CEFTRIAXONE 1 GM in DEXTROSE 5%-WATER - 50 ML IVPB SCH (09:34)
[2016-12-19] MEDS: CHOLECALCIFEROL (VITAMIN D3) 1,000 UNIT TABLET (FP) PO SCH (09:34)
[2016-12-19] MEDS: PANTOPRAZOLE SODIUM 40 MG/100 ML PRE-DOCKED IVPB SCH (09:34)
--- NOTE | 2016-12-19 09:56 | PN ---
Progress Note, Physician History of Present Illness: Awake , alert Comfortable at rest No flank pain, no dysuria Afebrile, WBC WNL Cultures no growth Renal scan c/w L renal outlet obstruction - Current Medication List Current Medications: Active Medications Acetaminophen (Tylenol -) 650 mg PO Q4H PRN PRN Reason: FEVER OR PAIN Cholecalciferol (Vitamin D3 -) 2,000 unit PO DAILY [facility] Last Admin: 12/19/16 09:34 Dose: 2,000 unit Clonidine (Catapres -) 0.2 mg PO TID [facility] Last Admin: 12/19/16 08:29 Dose: Not Given Heparin Sodium (Porcine) (Heparin -) 5,000 unit SQ TID [facility] Last Admin: 12/19/16 08:29 Dose: Not Given Ceftriaxone Sodium 1 gm/ (Dextrose) 50 mls @ 100 mls/hr IVPB DAILY [facility] Last Admin: 12/19/16 09:34 Dose: 100 mls/hr Insulin Detemir (Levemir Vial) 55 units SQ HS [facility] Last Admin: 12/18/16 22:17 Dose: 55 units Lisinopril (Prinivil) 40 mg PO DAILY [facility] Last Admin: 12/19/16 09:33 Dose: 40 mg Morphine Sulfate (Morphine Injection -) 2 mg IVPUSH Q4H PRN PRN Reason: PAIN Last Admin: 12/18/16 08:32 Dose: 2 mg Pantoprazole Sodium (Protonix 40mg Ivpb (Pre-Docked)) 40 mg IVPB DAILY [facility] Last Admin: 12/19/16 09:34 Dose: 40 mg - Objective Vital Signs: Vital Signs Temperature 98.2 F 12/19/16 06:42 Pulse Rate 63 12/19/16 06:42 Respiratory Rate 18 12/19/16 06:42 Blood Pressure 153/70 12/19/16 06:42 O2 Sat by Pulse Oximetry (%) 95 12/19/16 06:42 Constitutional: Yes: No Distress Eyes: Yes: Conjunctiva Clear Cardiovascular: Yes: Regular Rate and Rhythm, S1, S2 Respiratory: Yes: CTA Bilaterally Gastrointestinal: Yes: Normal Bowel Sounds, Soft, Abdomen, Obese. No: Tenderness Genitourinary: No: CVA Tenderness - Left Edema: No Labs: CBC, BMP 12/18/16 08:00 12/18/16 07:00 Assessment/Plan L renal outlet obstruction S/P fever/ leukocytosis Pt clinically non-toxic Afebrile, WBC WNL Substitute po levaquin 500mg daily Cysto/ L pyelogram/ stent per
--- NOTE | 2016-12-19 10:01 | EKG ---
Test Reason : Blood Pressure : / mmHG Vent. Rate : 092 BPM Atrial Rate : 092 BPM P-R Int : 244 ms QRS Dur : 124 ms QT Int : 404 ms P-R-T Axes : 079 -16 067 degrees QTc Int : 499 ms POOR DATA QUALITY, INTERPRETATION MAY BE ADVERSELY AFFECTED SINUS RHYTHM WITH 1ST DEGREE A-V BLOCK LEFT VENTRICULAR HYPERTROPHY WITH QRS WIDENING WHEN COMPARED WITH ECG OF 20-OCT-2016 08:24, ID INTERVAL HAS INCREASED NONSPECIFIC T WAVE ABNORMALITY NO LONGER EVIDENT IN INFERIOR LEADS T WAVE INVERSION NOW EVIDENT IN LATERAL LEADS Confirmed by MD TITUS, JOSE LUIS ([id number]) on 12/19/2016 10:00:49 AM Referred By: MD SALDANA Confirmed By:JOSE LUIS QURESHI MD
--- NOTE | 2016-12-19 10:01 | PN ---
SIM Medel Note Chief Complaint: urologically stable for d/c. needs outpt ureteral dilation cysto/retro and stent placeement - Objective Vital Signs: Vital Signs Temperature 98.2 F 12/19/16 06:42 Pulse Rate 63 12/19/16 06:42 Respiratory Rate 18 12/19/16 06:42 Blood Pressure 153/70 12/19/16 06:42 O2 Sat by Pulse Oximetry (%) 95 12/19/16 06:42 Labs/Additional Data: CBC, BMP 12/18/16 08:00 12/18/16 07:00 Problem List - Problems (1) Abdominal pain Code(s): R10.9 - UNSPECIFIED ABDOMINAL PAIN (2) Chest pain Code(s): R07.9 - CHEST PAIN, UNSPECIFIED (3) Fever of unknown origin (FUO) Code(s): R50.9 - FEVER, UNSPECIFIED (4) Hyperglycemia Code(s): R73.9 - HYPERGLYCEMIA, UNSPECIFIED (5) Colitis Code(s): K52.9 - NONINFECTIVE GASTROENTERITIS AND COLITIS, UNSPECIFIED
[2016-12-19] MEDS ORDERED: LEVOFLOXACIN 500 MG TABLET (FP) PO SCH (10:15)
[2016-12-19 11:04] LABS: BASOPHIL 1.4 % (0-2.0); EOSINOPHIL 2.1 % (0-4.5); MCH 25.7 pg (25.7-33.7); MCHC 32.7 g/dl (32.0-36.0); MEAN CELL VOLUME 78.5 fl (80-96); MEAN PLT VOLUME 8.8 fl (7.5-11.1); NEUTROPHILS 63.8 % (42.8-82.8); PLATELET COUNT 345 K/MM3 (134-434); RDW 16.2 % (11.6-15.6); WHITE BLOOD COUNT 7.2 K/mm3 (4.0-10.8)
[2016-12-19 11:26] LABS: ACTIVATED PTT 29.4 SECONDS (24.0-38.9)
[2016-12-19 11:28] LABS: ALBUMIN 2.7 g/dl (3.5-5.0); BILIRUBIN,TOTAL 0.8 mg/dl (0.2-1.0); CALCIUM 8.8 mg/dl (8.4-10.2); TOT PROT 6.5 g/dl (6.4-8.3)
[2016-12-19 11:31] LABS: INR 1.13 (0.82-1.09); PROTHROMBIN TIME (PATIENT) 12.6 SEC (10.2-13.0)
--- NOTE | 2016-12-19 11:48 | DS ---
Physical Exam: SUBJECTIVE: Patient seen and examined OBJECTIVE: Vital Signs Period Temp Pulse Resp BP Sys/Pascual Pulse Ox Last 24 Hr 98.2 F-98.3 F 63-75 18-18 153-172/70-80 95-97 PHYSICAL EXAM GENERAL: The patient is awake, alert, and fully oriented, in no acute distress. HEAD: Normal with no signs of trauma. EYES: PERRL, extraocular movements intact, sclera anicteric, conjunctiva clear. ENT: Ears normal, nares patent, oropharynx clear without exudates, moist mucous membranes. NECK: Trachea midline, full range of motion, supple. LUNGS: Breath sounds equal, clear to auscultation bilaterally, no wheezes, no crackles, no accessory muscle use. HEART: Regular rate and rhythm, S1, S2 without murmur, rub or gallop. ABDOMEN: Soft, nontender, nondistended, normoactive bowel sounds, no guarding, no rebound, no hepatosplenomegaly, no masses. EXTREMITIES: 2+ pulses, warm, well-perfused, no edema. NEUROLOGICAL: Cranial nerves II through XII grossly intact. Normal speech, gait not observed. PSYCH: Normal mood, normal affect. SKIN: Warm, dry, normal turgor, no rashes or lesions noted. LABS Laboratory Results - last 24 hr 12/18/16 12/19/16 12/19/16 22:01 05:33 10:52 WBC 7.2 RBC 3.89 Hgb 10.0 L Hct 30.5 L MCV 78.5 L MCHC 32.7 RDW 16.2 H Plt Count 345 D MPV 8.8 D Neutrophils % 63.8 Lymphocytes % 24.2 D Monocytes % 8.5 Eosinophils % 2.1 Basophils % 1.4 INR PTT (Actin FS) POC Glucometer 339 156 12/19/16 10:52 WBC RBC Hgb Hct MCV MCHC RDW Plt Count MPV Neutrophils % Lymphocytes % Monocytes % Eosinophils % Basophils % INR 1.13 PTT (Actin FS) 29.4 POC Glucometer HOSPITAL COURSE: Date of Admission:12/16/16 Date of Discharge: 12/19/16 Minutes to complete discharge: 45 Discharge Summary Reason For Visit: FEVER/HYPERGLYCEMIA Current Active Problems Abdominal pain (Acute) Chest pain (Acute) Fever of unknown origin (FUO) (Acute) Hyperglycemia (Acute) Condition: Stable - Instructions Referrals: Eyal Medina MD [Primary Care Provider] - - Home Medications Comprehensive Discharge Medication List: Ambulatory Orders Aspirin [ASA -] 81 mg PO DAILY 10/19/16 Cholecalciferol (Vitamin D3) [Vitamin D3] 2,000 unit PO DAILY 10/19/16 Clonidine HCl [Catapres] 0.2 mg PO TID 10/19/16 Insulin (Levemir) [Levemir Vial] 55 unit SQ DAILY 10/19/16 Metformin HCl [Metformin HCl ER] 1,000 mg PO BID 10/19/16 Triamterene/Hydrochlorothiazid [Triamterene-Hctz 37.5-25 mg Cp] 1 each PO DAILY 10/19/16 Acetaminophen [Tylenol .Regular Strength -] 650 mg PO Q4H PRN #0 tablet Meloxicam [Mobic (Nf) -] 15 mg PO DAILY 12/15/16
[2016-12-19 11:53] LABS: COCKROFT - GAULT 64.2175; CREATININE 1.2 mg/dl (0.6-1.3)
== END 2016-12-19 15:05 | disposition home or self-care (01) | DRG 872 ==
LOC: FER 20:52 → FM/S 12-16 00:50
PROVIDERS: ADMIT Internal Medicine; ATTEND Nurse Practitioner Family
DX: A41.89 Other specified sepsis (principal); N13.30 Unspecified hydronephrosis; N12 Tubulo-interstitial nephritis, not specified as acute or chronic; R65.20 Severe sepsis without septic shock; E78.00 Pure hypercholesterolemia, unspecified; K59.00 Constipation, unspecified; N35.9 Urethral stricture, unspecified; E87.6 Hypokalemia; F17.210 Nicotine dependence, cigarettes, uncomplicated; I12.9 Hypertensive chronic kidney disease with stage 1 through stage 4 chronic kidney disease, or unspecified chronic kidney disease; E11.22 Type 2 diabetes mellitus with diabetic chronic kidney disease; N18.9 Chronic kidney disease, unspecified; N28.89 Other specified disorders of kidney and ureter; K83.8 Other specified diseases of biliary tract; Z96.652 Presence of left artificial knee joint; Z79.4 Long term (current) use of insulin
CPT/HCPCS: 36415; 71010-TC; 74177-TC; 76700-TC; 78708-TC; 80048; 80053; 81003; 81015; 82248; 82550; 83605; 83690; 83735; 84100; 84484; 85025; 85610; 85730; 87040; 87070; 87086; 93005; 99284-25; A9562; J1644

== ENCOUNTER 2016-12-21 13:00 | Day surgery (SDC) | payer OTHER ==
[2016-12-20 18:10] VITALS: BMI 35.6
[2016-12-21] MEDS ORDERED: MIDAZOLAM HCL 2 MG/2 ML SINGLE DOSE VIAL ONE (14:55)
[2016-12-21] MEDS ORDERED: PROPOFOL 20 ML ONE (14:58)
[2016-12-21] MEDS ORDERED: GENTAMICIN SO4 80 MG/2 ML VIAL ONE (14:59)
[2016-12-21] MEDS ORDERED: GENTAMICIN 80MG PREMIX BAG IVPB ONE (15:00)
[2016-12-21] MEDS ORDERED: LIDOCAINE HCL 2% 100 MG/5 ML DISP.SYRIN ONE (15:05)
--- NOTE | 2016-12-21 15:07 | OP ---
Operative Note - Note: Pre-Operative Diagnosis: l kidney stone Operation: cysto, retrograde pyleogram left. ureterscopy and placement of jj stent with ureteral dialtion Findings: l ureteral stone Post-Operative Diagnosis: Same as Pre-op Surgeon: Nelly Fleming Anesthesia: General Drains & Tubes with Location: l jj stent Operative Report Dictated: Yes
[2016-12-21] MEDS ORDERED: HYDROmorphone HCL CARPU-JECT 2 MG/1 ML DISP.SYRIN IM ONE (15:08)
[2016-12-21] MEDS ORDERED: DEXAMETHASONE SOD PHOSPHATE 4 MG/1 ML VIAL ONE (15:11)
[2016-12-21] MEDS ORDERED: KETOROLAC TROMETHAMINE 30 MG/1 ML VIAL ONE (15:16)
--- NOTE | 2016-12-21 15:33 | HP ---
DATE OF ADMISSION: DATE OF DICTATION: 12/21/2016 HISTORY OF PRESENT ILLNESS: The patient is a 71-year-old female admitted for treatment of left hydroureteronephrosis. Patient was recently admitted to the hospital for left flank pain associated with nausea and vomiting. A CAT scan revealed a left hydroureteronephrosis. No stones were seen. Patient has undergone a total abdominal hysterectomy several years ago and multiple hemoclips were seen in the pelvis. Patient also has history of nephrolithiasis several years ago, underwent a ureteroscopic left laser lithotripsy with stent placement. Patient does have history of gout, high blood pressure, diabetes, and recurrent urinary tract infections. She presently complaints of left-sided flank pain. She is allergic to NAPROSYN and DAYPRO, also allergic to SAXAGLIPTIN, LATEX, and MUSHROOMS. She denies any recent travel. She does complain of constipation. She also denies any cardiac history. She does have history of dyslipidemia as well as hypertension. She does have type 2 diabetes. Patient has undergone an open cholecystectomy in the past. Also underwent incisional hernia repair with mesh placement. She has also undergone a left knee replacement in the past. She is a current smoker. Presently the patient is on vitamin B supplements, clonidine 0.2 mg for high blood pressure, and she is on Levemir insulin 55 units daily. She also is on metformin 1000 mg twice a day, and triamterene with hydrochlorothiazide 37.5/25 daily. Patient also takes allopurinol 100 mg every night, a diuretic renal scan performed as an outpatient revealed an obstructive pattern on the left side. Patient does complain of left flank pain. Again, CAT scan revealed no etiology for her hydroureteronephrosis; since patient has had previous pelvic surgery, the possibility of hypovascular ureteral stricture must be entertained. Patient will undergo a cystourethroscopy, left retrograde pyelogram, possible left lower ureteral dilation, and left Double J stent placement. Lizeth [id number]
[2016-12-21] MEDS ORDERED: PROMETHAZINE HCL 25 MG/1 ML VIAL IVPUSH PRN (15:40)
[2016-12-21] MEDS ORDERED: ONDANSETRON 4 MG/2 ML VIAL IVPUSH PRN (15:40)
[2016-12-21] MEDS ORDERED: LACTATED RINGERS SOLUTION 1,000 ML IV SCH (15:45)
[2016-12-21 17:34] VITALS: TEMP 98.3
[2016-12-21 18:41] VITALS: BP 154/100; PULSE 68
[2016-12-22] MEDS ORDERED: LEVOFLOXACIN 500 MG TABLET (FP) PO SCH (06:00)
--- NOTE | 2016-12-22 08:51 | OP ---
DATE OF OPERATION: DATE OF DICTATION: 12/21/2016 PREOPERATIVE DIAGNOSES: Micturition disorder. Left hydroureteronephrosis. POSTOPERATIVE DIAGNOSES: Left lower ureteral stricture with hydroureteronephrosis. Trabeculated bladder, due to meatal stenosis. OPERATIVE PROCEDURES: Cystourethroscopy. Calibration dilation of the meatus. Left retrograde pyelogram. Left ureteroscopy. Left ureteral dilation. Placement of a left JJ stent. ANESTHESIA: General. Under above-stated anesthesia, the patient was prepped and draped in the usual sterile manner. She was placed in the dorsal lithotomy position. 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 Meatus was scarred and vaginal vestibule was atrophic. Stan test was negative. Using a 30-degree continuous flow scope, the bladder was entered. Urine was collected for culture and sensitivity. Inspection of the bladder revealed a grade 2 trabeculation throughout. No overt lesions or calculi were seen. Dome and lateral alonso were within normal limits. Ureteral orifices were within normal limits with efflux of clear urine bilaterally. The trigone revealed a grade 2 squamous metaplasia. A Flexi-Tip catheter was placed into the left ureteral orifice and 7 mL of contrast was injected. This revealed a hydronephrotic left kidney to the level of the lower ureter. There appeared to be a stricture in the left lower ureter. No intrinsic defects were seen. A Glidewire was passed up the left renal unit under fluoroscopic control. The cystoscope was removed. The ureteroscope was inserted. Ureteroscopy performed under direct vision revealed a tight left lower ureter. Using a ureteral balloon dilation, this was placed in the lower third of the ureter and dilated to 12-Thai for 10 minutes. No active bleeding was noted. A continuation of the ureteroscopy revealed a severely dilated proximal ureter and renal pelvis. No overt lesions or calculi were seen. The ureteroscope was then removed. The Glidewire remained in place. The cystoscope was inserted. A 24 cc 6-Thai double-J stent was left in place. X-rays confirmed good position of the left stent. The bladder was emptied. The scope was removed. The patient tolerated the procedure well. She returned to the recovery room in good condition. Lizeth [id number]
== END 2016-12-21 18:40 | disposition home or self-care (01) ==
LOC: JASU-SURG 13:00
PROVIDERS: ATTEND Urology
PROC: 0T7B8ZZ Dilation of Bladder, Via Natural or Artificial Opening Endoscopic (ICD-10-PCS; 2016-12-21)
PROC: 0T7D8DZ Dilation of Urethra with Intraluminal Device, Via Natural or Artificial Opening Endoscopic (ICD-10-PCS; principal; 2016-12-21 14:30)
PROC: 0T778ZZ Dilation of Left Ureter, Via Natural or Artificial Opening Endoscopic (ICD-10-PCS; 2016-12-21 14:30)
DX: N13.1 Hydronephrosis with ureteral stricture, not elsewhere classified (principal); N32.89 Other specified disorders of bladder; N35.9 Urethral stricture, unspecified
CPT/HCPCS: 76000-TC; 87086; 94760

== ENCOUNTER 2017-01-15 07:23 | Emergency (ER) | payer OTHER ==
[2017-01-15 07:29] VITALS: TEMP 98.1; BMI 35.9
--- NOTE | 2017-01-15 07:43 | PDOC ---
History of Present Illness <Sherwin Dhaliwal - Last Filed: 01/15/17 10:14> - General History Source: Patient, Old Records Exam Limitations: No Limitations - History of Present Illness Initial Comments: 01/15/17 07:51 The patient is a 71-year-old woman, accompanied by her , with a past medical history of hypertension, hypercholesterolemia and diabetes mellitus who presents to the emergency department via walk-in for further evaluation of possible allergic reaction this morning. She states that she is scheduled to undergo a total knee replacement next week and she was prescribed Percocet for pain control in the meantime. She admits that she took a Percocet tablet on Sunday and she had some left facial swelling but felt fine after that. She also admits that she has taken Percocet in the past, for a ureteral stent, with no reaction. This morning, at approximately 02:00 AM, she took a Percocet tablet and experienced left facial swelling with associated right sided throat discomfort, described as a funny feeling that radiates to the right sternum. No pain. She denies any throat pain, cough, shortness of breath. She denies any new medications or recent dosages changes. No new soaps, detergents, foods. She has not taken her morning medications. She denies denies any rash, sore throat, trouble swallowing, voice changes, chest pain or tightness, weakness or changes in sensations/strength to her extremities, abdominal pain, nausea, or vomiting. Allergies: Latex. Insulin Lispro. Naproxen. Oxaprozin. Saxagliptin. Past Surgical History: Appendectomy. Cholecystectomy. Hernia Repair. Ureteral stent. Left knee replacement Social History: No tobacco, EtOH and recreational drug use. Primary Care Physician: Dr. Eyal Medina <Ama Grubbs - Last Filed: 01/15/17 10:29> - General Chief Complaint: Allergic Reaction Stated Complaint: ALLERGIC REACTION Time Seen by Provider: 01/15/17 07:42 Past History - Past Medical History Anemia: No Asthma: No Cancer: No Cardiac Disorders: No CVA: No COPD: No CHF: No Dementia: No Diabetes: Yes GI Disorders: Yes (CONSTIPATION) Disorders: Yes (H/O URETERAL STENT) HTN: Yes Hypercholesterolemia: Yes (PT DENIES) Liver Disease: No Suicide Attempt (Hx): No Seizures: No Thyroid Disease: No - Surgical History Abdominal Surgery: Yes (HERNIA REPAIR WITH MESH IMPLANT) Appendectomy: No Cardiac Surgery: No Cholecystectomy: No Lung Surgery: No Neurologic Surgery: No Orthopedic Surgery: Yes (LT KNEE REPLACEMENT) - Psycho/Social/Smoking Cessation Hx Anxiety: No Suicidal Ideation: No Smoking Status: No Smoking History: Smoker current status UNK Have you smoked in the past 12 months: No Number of Cigarettes Smoked Daily: 0 Cigars Per Day: 0 Information on smoking cessation initiated: No Hx Alcohol Use: No Drug/Substance Use Hx: No Substance Use Type: None Hx Substance Use Treatment: No <Sherwin Dhaliwal - Last Filed: 01/15/17 10:14> <Ama Grubbs - Last Filed: 01/15/17 10:29> - Past Medical History Allergies/Adverse Reactions: Allergies Allergy/AdvReac Type Severity Reaction Status Date / Time latex Allergy Severe Swelling Verified 01/15/17 07:26 insulin lispro [From Humalog] Allergy Intermediate Generalized Verified 07:26 rash and itching naproxen [From Naprosyn] Allergy Swelling Verified 01/15/17 07:26 oxaprozin [From Daypro] Allergy Swelling Verified 01/15/17 07:26 saxagliptin HCl Allergy leg edema Verified 01/15/17 07:26 [From Onglyza] latex Allergy Severe Uncoded 01/15/17 07:26 Mushrooms Allergy Uncoded 01/15/17 07:26 naproxen Allergy Uncoded 01/15/17 07:26 Home Medications: Ambulatory Orders Cholecalciferol (Vitamin D3) [Vitamin D3] 2,000 unit PO DAILY 10/19/16 Clonidine HCl [Catapres] 0.2 mg PO TID 10/19/16 Insulin (Levemir) [Levemir Vial] 55 unit SQ ASDIR 10/19/16 Metformin HCl [Metformin HCl ER] 1,000 mg PO BID 10/19/16 Triamterene/Hydrochlorothiazid [Triamterene-Hctz 37.5-25 mg Cp] 1 each PO DAILY 10/19/16 Acetaminophen [Tylenol .Regular Strength -] 650 mg PO Q4H PRN #0 tablet Levofloxacin [Levaquin -] 500 mg PO DAILY@0600 #7 tablet 12/19/16 Allopurinol [Zyloprim -] 100 mg PO DAILY 12/20/16 Oxybutynin Chloride [Ditropan Xl] 10 mg PO DAILY #30 tab.er.24 NS 12/21/16 Phenazopyridine HCl [Pyridium] 100 mg PO TID #12 tablet 12/21/16 Review of Systems - Review of Systems Constitutional: No: Chills, Fever HEENTM: Yes: See HPI Respiratory: No: Cough, Shortness of Breath Cardiac (ROS): Yes: Chest Pain ABD/GI: No: Vomiting Integumentary: No: Rash Neurological: No: Headache All Other Systems: Reviewed and Negative <Sherwin Dhaliwal - Last Filed: 01/15/17 10:14> *Physical Exam - Vital Signs Last Vital Signs Temp Pulse Resp BP Pulse Ox 98.1 F 78 18 195/108 100 01/15/17 07:26 01/15/17 07:26 01/15/17 07:26 01/15/17 07:26 01/15/17 07:26 <Sherwin Dhaliwal - Last Filed: 01/15/17 10:14> - Vital Signs Last Vital Signs Temp Pulse Resp BP Pulse Ox 98.1 F 78 18 195/108 100 01/15/17 07:26 01/15/17 07:26 01/15/17 07:26 01/15/17 07:26 01/15/17 07:26 - Physical Exam Comments: 01/15/17 07:52 GENERAL: The patient is awake, alert, and fully oriented, in no acute distress. HEAD: Normal with no signs of trauma. EYES: Pupils equal, round and reactive to light, extraocular movements intact, sclera anicteric, conjunctiva clear with no pallor. ENT: Ears normal, nares patent, oropharynx clear without exudates. Moist mucous membranes. NECK: Normal range of motion, supple without lymphadenopathy, JVD, or masses. LUNGS: Breath sounds equal, clear to auscultation bilaterally. No wheeze/ crackles. HEART: Regular rate and rhythm, normal S1 and S2 without murmur or rub. ABDOMEN: Soft/nontender/nondistended. BS wnl. No guarding or rebound. No palpable masses. No hepatosplenomegaly. EXTREMITIES: Normal range of motion. Trace pretibial edema, bilaterally. No clubbing or cyanosis. No cords, erythema, or tenderness. NEUROLOGICAL: Cranial nerves II through XII grossly intact. Normal speech, normal gait. PSYCH: Normal mood, normal affect. SKIN: Warm, Dry, normal turgor, no rashes or lesions noted. <Ama Grubbs - Last Filed: 01/15/17 10:29> Heart Score/ECG Review #1 ECG reviewed & interpreted by me at: 08:43 General ECG Interpretation: Sinus Rhythm, Normal Rate (60), Normal Intervals ( LVH with QRS 130), No acute ischemic changes Compared to previous ECG there are: No significant change (12/15/16) <Sherwin Dhaliwal - Last Filed: 01/15/17 10:14> ED Treatment Course - LABORATORY CBC & Chemistry Diagram: 01/15/17 08:30 01/15/17 08:30 <Sherwin Dhaliwal - Last Filed: 01/15/17 10:14> - LABORATORY CBC & Chemistry Diagram: 01/15/17 08:30 01/15/17 08:30 - RADIOLOGY Radiograph Interpretation: 01/15/17 09:46 EXAM: RAD/CHEST PA LAT Interpreted by Dr. William Saez IMPRESSION: Chest 2 views compared with December 15, 2016. Midline trachea. Uncoiled thoracic aorta. The cardiac silhouette is borderline enlarged. No evidence of pneumonia, CHF, pleural effusion or pneumothorax. No evidence of bulky hilar or mediastinal adenopathy. Intact visualized osseous structures. Mild thoracic spondylosis. Surgical clips are noted in the upper abdomen. <Ama Grubbs - Last Filed: 01/15/17 10:29> Medical Decision Making - Medical Decision Making 01/15/17 08:08 A portion of this note was documented by scribe services under my direction. I have reviewed the details of the note, within reason, and agree with the documentation with the following case summary and management plan written by me. 71-year-old female with history of hypertension, high cholesterol, diabetes, arthritis with chronic knee pain and anticipate being total knee replacement next week but maintained on Percocet in the interim presents with suspicion of ALLERGIC reaction in the setting of throat/chest "funny feeling" upon awakening this morning. Patient took a Percocet around 2 AM, states she awoke with some right facial swelling and then otherwise nonspecific sensation in her predominantly right/substernal chest, denies any itching or rash or difficulty swallowing or breathing, denies any vomiting or dyspepsia. She has taken Percocet in the past, last week she had an episode where she felt she awoke with some left facial swelling but she has taken Percocet since then without any reaction. Feels the right facial swelling has improved/resolved, but the sensation in her chest continues. Elevated blood pressure, did not take her medications this morning. Vital signs otherwise normal. Well-appearing, ambulating, speaking full sentences Oropharynx is clear without edema, no stridor, exam is unremarkable except for trace bilateral pretibial edema Neurologically intact 71-year-old female with nonspecific throat/chest complaint this morning, likely unrelated to her Percocet. There is no clinical suspicion for an ALLERGIC reaction, raising the question of the etiology of her symptoms. Elevated BP, ? atypical chest pain or dissection? Seems unlikely but will pursue cardiac workup. labs ekg, cxr monitor and reassess 01/15/17 09:30 Baseline mild anemia of 10, creatinine at baseline of 1.3, troponin 0.05, EKG unchanged from prior and without acute ischemia. Chest x-ray pending. We'll reassess 01/15/17 10:14 Chest x-ray shows no acute pathology, similar to prior imaging with just uncoiled aorta. Patient looks and feels well, no facial swelling or airway swelling. Discussed at length, question whether this is angioedema from lisinopril. Will trial dose of Benadryl in the ED. Case discussed with Dr. Medina, the patient's primary physician, who knows her well. Patient has multiple ALLERGIES so it's possible she is having a reaction, confirms that she had cardiac clearance for her knee replacement next week and had a normal stress test in the last 2 weeks. Suspicion for cardiac etiology is very low, and the initial workup is reassuring. We'll discharge with ALLERGY precautions, patient has all meds at home, will follow-up and understands return criteria. <Sherwin Dhaliwal - Last Filed: 01/15/17 10:14> - Medical Decision Making 01/15/17 10:[address] Medina. Immediate response. Case was discussed. <Ama Grubbs - Last Filed: 01/15/17 10:29> *DC/Admit/Observation/Transfer <Sherwin Dhaliwal - Last Filed: 01/15/17 10:14> - Attestations Scribe Attestion: 01/15/17 07:53 Documentation prepared by Ama Grubbs, acting as medical assistant prn for Sherwin Dhaliwal MD. <Ama Grubbs - Last Filed: 01/15/17 10:29> Diagnosis at time of Disposition: Atypical chest pain Allergic reaction Qualifiers: Encounter type: initial encounter Qualified Code(s): T78.40XA - Allergy, unspecified, initial encounter - Discharge Dispostion Disposition: HOME Condition at time of disposition: Improved - Referrals Referrals: Eyal Medina MD [Primary Care Provider] - - Patient Instructions Printed Discharge Instructions: DI for Adverse Drug Reaction -- Allergic Additional Instructions: Activity as tolerated. Stay hydrated. It remains unclear what caused your symptoms this morning. It's possible that you had a mild ALLERGIC reaction to the Percocet, it is also possible that you had a reaction called angioedema to your lisinopril. Stop Percocet for the time being, and continue your medications as previously prescribed by your physician. Take Benadryl as needed for any swelling/itching rash. You should follow up with your primary doctors as soon as possible regarding today's emergency department visit. Return to the emergency department for any new or concerning symptoms, particularly rash, throat swelling/pain, wheezing or difficulty breathing/ swallowing, fever, chest pain.
[2017-01-15] MEDS ORDERED: LISINOPRIL 20 MG TABLET (FP) PO ONE (07:51)
[2017-01-15] MEDS ORDERED: cloNIDine HCL 0.1 MG TABLET PO ONE (07:51)
[2017-01-15 08:53] LABS: BASOPHIL 0.4 % (0-2.0); EOSINOPHIL 2.9 % (0-4.5); MCH 25.9 pg (25.7-33.7); MCHC 32.6 g/dl (32.0-36.0); MEAN CELL VOLUME 79.5 fl (80-96); MEAN PLT VOLUME 9.2 fl (7.5-11.1); PLATELET COUNT 221 K/MM3 (134-434); RDW 17.7 % (11.6-15.6); WHITE BLOOD COUNT 5.6 K/mm3 (4.0-10.0)
[2017-01-15] MEDS ORDERED: cloNIDine HCL 0.1 MG TABLET ONE (08:54)
[2017-01-15] MEDS ORDERED: LISINOPRIL 20 MG TABLET (FP) ONE (08:54)
[2017-01-15 09:13] LABS: INR 1.02 (0.82-1.09); PROTHROMBIN TIME (PATIENT) 11.2 SEC (9.98-11.88)
[2017-01-15 09:17] LABS: ALBUMIN 3.2 g/dl (3.4-5.0); BILIRUBIN,TOTAL 0.4 mg/dL (0.2-1.0); CALCIUM 8.6 mg/dL (8.5-10.1); COCKROFT - GAULT 59.6105; CREATININE 1.3 mg/dL (0.55-1.02); MAGNESIUM 1.9 mg/dL (1.8-2.4); TOT PROT 6.8 g/dl (6.4-8.2)
[2017-01-15 09:20] LABS: TROPONIN I 0.05 ng/ml (0.00-0.05)
[2017-01-15] MEDS ORDERED: diphenhydrAMINE HCL 25 MG CAPSULE (FP) PO ONE ×2 (09:53→09:59)
[2017-01-15 10:26] VITALS: BP 143/76; PULSE 58
--- NOTE | 2017-01-15 10:27 | EKG ---
Test Reason : Blood Pressure : / mmHG Vent. Rate : 060 BPM Atrial Rate : 060 BPM P-R Int : 208 ms QRS Dur : 130 ms QT Int : 450 ms P-R-T Axes : 074 -08 040 degrees QTc Int : 450 ms NORMAL SINUS RHYTHM WITH SINUS ARRHYTHMIA LEFT VENTRICULAR HYPERTROPHY WITH QRS WIDENING ABNORMAL ECG WHEN COMPARED WITH ECG OF 15-DEC-2016 22:13, [place] INTERVAL HAS DECREASED VENT. RATE HAS DECREASED BY 32 BPM Confirmed by MD KAREN, RYLEY ([id number]) on 01/15/2017 10:26:58 AM Referred By: Confirmed By:RYLEY JONES MD
== END 2017-01-15 10:40 | disposition home or self-care (01) ==
LOC: JER 07:23
DX: R07.89 Other chest pain (principal); R60.0 Localized edema; T50.995A Adverse effect of other drugs, medicaments and biological substances, initial encounter; Y92.038 Other place in apartment as the place of occurrence of the external cause; I10 Essential (primary) hypertension; E11.9 Type 2 diabetes mellitus without complications; Z79.4 Long term (current) use of insulin; Z79.84 Long term (current) use of oral hypoglycemic drugs; E78.00 Pure hypercholesterolemia, unspecified; M12.9 Arthropathy, unspecified
CPT/HCPCS: 36415; 71020-TC; 80053; 82550; 83735; 84484; 85025; 85610; 93005; 93010; 99282-25

== ENCOUNTER 2017-01-23 05:53 | Inpatient (IN) | payer OTHER ==
[2017-01-16 11:03] VITALS: BMI 36.6
[2017-01-23] MEDS ORDERED: CEFAZOLIN 2 GM in DEXTROSE 5%-WATER - 50 ML IVPB ONE (05:56)
[2017-01-23] MEDS: GABAPENTIN 300 MG CAPSULE (FP) PO ONE ×2 (06:55→15:53)
[2017-01-23] MEDS ORDERED: MIDAZOLAM HCL 2 MG/2 ML SINGLE DOSE VIAL ONE ×2 (06:57→08:34)
[2017-01-23] MEDS ORDERED: DEXAMETHASONE SOD PHOSPHATE/PF 10 MG/ML SDV ONE (06:57)
[2017-01-23] MEDS ORDERED: ROPIVACAINE HCL 0.5% 30ML VIAL ONE (06:58)
[2017-01-23] MEDS ORDERED: SODIUM CHLORIDE 0.9% P/F 10 ML VIAL IJ ONE (06:58)
[2017-01-23] MEDS ORDERED: TRANEXAMIC ACID 1000 MG/10 ML VIAL ONE ×2 (07:13→09:04)
[2017-01-23] MEDS ORDERED: ceFAZolin SODIUM 1 GM VIAL ONE ×2 (07:13→08:38)
[2017-01-23] MEDS ORDERED: VANCOMYCIN 1,000 MG VIAL (RESTRICTED TO ID ONLY) ONE (07:13)
[2017-01-23] MEDS ORDERED: SUCCINYLCHOLINE CHLORIDE 200 MG/10 ML VIAL ONE (07:29)
[2017-01-23] MEDS ORDERED: PROPOFOL 20 ML ONE ×2 (07:29)
[2017-01-23] MEDS ORDERED: BUPIVACAINE HCL/PF 0.5% (5MG/ML) 10 ML VIAL ONE (07:36)
--- NOTE | 2017-01-23 07:46 | HP ---
Satellite [facility] - Chief Complaint Chief Complaint: right knee pain - Past Medical History Allergies/Adverse Reactions: Allergies Allergy/AdvReac Type Severity Reaction Status Date / Time latex Allergy Severe Swelling Verified 01/16/17 11:08 insulin lispro [From Humalog] Allergy Intermediate Generalized Verified 11:08 rash and itching naproxen [From Naprosyn] Allergy Swelling Verified 01/16/17 11:08 oxaprozin [From Daypro] Allergy Swelling Verified 01/16/17 11:08 saxagliptin HCl Allergy leg edema Verified 01/16/17 11:08 [From Onglyza] latex Allergy Severe Uncoded 01/16/17 11:08 Mushrooms Allergy Uncoded 01/16/17 11:08 naproxen Allergy Uncoded 01/16/17 11:08 Cardiovascular: Yes: HTN Renal/: Yes: Other (h/o pyelonephritis. 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) Endocrine: Yes: Diabetes Mellitus - Current Medications Current Medications: Home Medications Medication Instructions Recorded Cholecalciferol (Vitamin D3) 2,000 unit PO DAILY 10/19/16 [Vitamin D3] Clonidine HCl [Catapres] 0.2 mg PO TID 10/19/16 Insulin (Levemir) [Levemir Vial] 30 unit SQ ASDIR 10/19/16 Metformin HCl [Metformin HCl ER] 1,000 mg PO BID 10/19/16 Triamterene/Hydrochlorothiazid 1 each PO DAILY 10/19/16 [Triamterene-Hctz 37.5-25 mg Cp] Allopurinol [Zyloprim -] 100 mg PO DAILY 12/20/16 Ferrous Sulfate 325 mg PO DAILY 01/16/17 Insulin (LOG) Aspart [NovoLOG -] 7 units SQ TID 01/16/17 Satellite Physical Exam - Physical Examination Vital Signs: Vital Signs Period Temp Pulse Resp BP Sys/Pascual Pulse Ox Last 24 Hr 98.0 F 61 18 149/84 General Appearance: Well Nourished, Well Developed, Alert & Oriented x3, Obese ENT: Clear Lung: Normal air movement Heart: Regular rate & rhythm Extremities: Other (right knee- + swelling, + ttp, decr rom ,nvi xrays show severe tricompartmental djd) Neurological: Intact, Alert, Oriented Satellite Impression/Plan - Impression/Plan Impression: right knee djd Operative Procedure: right nichole tkr Date to be Performed: 01/23/17
[2017-01-23] MEDS ORDERED: ONDANSETRON 4 MG/2 ML VIAL ONE (09:04)
[2017-01-23] MEDS ORDERED: oxyCODONE HCL 5 MG TABLET PO PRN (09:29)
[2017-01-23] MEDS ORDERED: ROPIVACAINE 0.2% 400ML 400 ML ML NR ONE (09:29)
[2017-01-23] MEDS ORDERED: ONDANSETRON 4 MG/2 ML VIAL IVPUSH PRN (09:29)
[2017-01-23] MEDS ORDERED: MAG HYDROX/AL HYDROX/SIMETH 30 ML UNIT-DOSE CUP PO PRN (10:58)
[2017-01-23] MEDS ORDERED: MAGNESIUM HYDROX 2400MG/30ML ORAL SUSPENSION 30 ML CUP PO PRN (10:58)
[2017-01-23] MEDS ORDERED: ONDANSETRON 4 MG/2 ML VIAL IVPB PRN (10:58)
[2017-01-23] MEDS ORDERED: LACTATED RINGERS SOLUTION 1,000 ML IV SCH (11:00)
[2017-01-23] MEDS ORDERED: VANCOMYCIN 1,000 MG VIAL (RESTRICTED TO ID ONLY) IVPB ONE (11:03)
--- NOTE | 2017-01-23 11:04 | OP ---
Operative Note - Note: Operative Date: 01/23/17 (amalia) Pre-Operative Diagnosis: right knee djd Operation: right nichole tkr Post-Operative Diagnosis: Same as Pre-op Surgeon: Ham uLa Foreign Student Adviser: Jaxson Saeed Anesthesiologist/MYSQL DEVELOPER: Laura Leahy Anesthesia: Spinal, Local Specimens Removed: bone fragments Estimated Blood Loss (mls): 50 (tourniquet) Operative Report Dictated: Yes
[2017-01-23] MEDS: ACETAMINOPHEN 1000 MG/100 ML VIAL (NON FORMULARY) IVPB ONE ×2 (11:20→15:53)
[2017-01-23] MEDS: oxyCODONE HCL 5 MG TABLET PO PRN ×2 (12:53→16:25)
[2017-01-23] MEDS ORDERED: HYDROmorphone HCL CARPU-JECT 1 MG/1 ML DISP.SYRIN ONE (13:24)
[2017-01-23] MEDS ORDERED: PATIENT'S OWN MEDICATION (NON-FORMULARY) (Clonidine Hcl [Catapres] 0.2 MG) PO SCH (14:00)
--- NOTE | 2017-01-23 14:06 | PN ---
Progress Note (short form) - Note Progress Note: 71F s/p TKR this morning. Called by nurses on floor because pt complaining of 10 /10 pain with minimal improvement with oral pain medication. Pt does not regularly take narcotics at home. Pt brought down to holding area, given 100mg fentanyl to bring pain level down to 6/10. Adductor catheter removed, tip intact. Sensory and motor function intact b/l lower extremities. Single shot adductor canal block done under direct ultrasound visualization. Pt tolerated well, monitored in PACU, reports pain relief.
[2017-01-23] MEDS ORDERED: LABETALOL HCL 5 MG/1 ML (100MG/20 ML VIAL) ONE ×2 (14:12→14:17)
[2017-01-23] MEDS: cloNIDine HCL 0.1 MG TABLET PO SCH ×4 (14:20→21:54)
[2017-01-23] MEDS ORDERED: LABETALOL HCL 5 MG/1 ML (100MG/20 ML VIAL) IVPUSH ONE (14:40)
[2017-01-23] MEDS: LISINOPRIL 20 MG TABLET (FP) PO ONE ×2 (14:41→15:54)
[2017-01-23] MEDS: hydrALAZINE HCL 20 MG/ML VIAL IVPUSH ONE ×2 (14:50→15:54)
[2017-01-23] MEDS ORDERED: diazePAM 5 MG TABLET ONE (15:13)
[2017-01-23] MEDS ORDERED: diazePAM 2 MG TABLET PO SCH (15:15)
[2017-01-23] MEDS ORDERED: diazePAM 5 MG TABLET PO ONE (15:47)
[2017-01-23] MEDS ORDERED: diazePAM 2 MG TABLET PO ONE (15:47)
[2017-01-23] MEDS: oxyCODONE HCL 10 MG SUSTAINED ACTING TABLET PO SCH ×2 (15:53→21:54)
[2017-01-23] MEDS: INSULIN SLIDING SCALE (NOVOLOG) 1 VIAL SQ SCH ×3 (15:53→21:56)
[2017-01-23] MEDS: LACTATED RINGERS SOLUTION 1,000 ML IV SCH (15:53)
[2017-01-23] MEDS: CEFAZOLIN 2 GM/D5W 50 ML IVPB SCH (16:18)
[2017-01-23] MEDS: ACETAMINOPHEN 325 MG TABLET (FP) PO SCH (17:54)
--- NOTE | 2017-01-23 19:10 | SPEC ---
DATE OF SURGERY: 01/23/2017 OPERATION: Right total knee replacement with robotic-assisted navigation (MAKOplasty). PREOPERATIVE DIAGNOSIS: Degenerative joint disease, right knee. POSTOPERATIVE DIAGNOSIS: Degenerative joint disease, right knee. SURGEON: Ham Lua M.D. PARK NATURALIST: Ene Kan ANESTHESIA: Regional and spinal. CLOSURE: A Triathlon knee system with a 3 femur, a 4 tibia, an 11 TS polyethylene, a 35 patella. A number 1 Vicryl fascia, 0 and 2-0 for subcutaneous, 3-0 Monocryl subcuticular, with skin glue, 4-0 undyed Vicryl for pin sites. ESTIMATED BLOOD LOSS: Negligible. TOURNIQUET TIME: Approximately 75 minutes. COMPLICATIONS: None CONDITION: To recovery room in stable condition. DESCRIPTION OF PROCEDURE: Patient was taken to the operating room January 23, 2017. Regional and spinal anesthesia were administered by the anesthesiologist. IV antibiotics and TXA were administered prophylactically prior to the case. A well-padded pneumatic tourniquet was placed on the right proximal thigh. The right lower extremity was prepped and draped in the usual sterile fashion. An approximately 12-cm midline incision centered over the patella was incised. Hemostasis was achieved with Bovie cautery. Sharp dissection was carried down to the level of the extensor mechanism the procedure. A medial parapatellar arthrotomy was then performed. The patella was inverted and the knee was flexed up to 90 degrees. Subperiosteal dissection was performed on the anteromedial proximal tibia until the knee was able to be brought forward. This was facilitated by taking the ACL, the PCL, and the medial and lateral menisci. A checkpoint was malleted into the medial femoral condyle and into the anteromedial proximal tibia. Through 2 (two) small stab incisions in the mid femur and 2 (two) in the mid tibia, 2 (two) bicortical pins were drilled, achieving excellent height. Two of these pins were attached to the navigation arrays. The knee was then registered with the navigation device by rotating the hip to ascertain the center of rotation of the hip with points on both the medial and lateral malleoli and multiple points on both the femur and on the tibia. Excellent registration was confirmed by "popping the bubbles." At this time, the osteophytes on the edges of the proximal tibia both medially and laterally, as well as on the medial lateral femoral condyles underneath the collateral ligaments were debrided. The knee was stressed in extension and in flexion to confirm good gaps. The virtual positions of the components were then optimized in order to have a balanced knee, both in extension and in 90 degrees of flexion. The sizes of the components were also optimized to get good coverage over both the tibia and the femur and to produce equal gaps in extension and flexion with the appropriate amount of external rotation of the femur, the appropriate amount of flexion of the femoral component and the appropriate slope on the tibial component. At this time, the robot was brought into the field and registered. The robot was used to cut the proximal tibia and to make all the cuts on the distal femur. The bone was then removed. A spacer block in extension and flexion was used to confirm equal balancing of the component in both extension and 90 degrees of flexion. The box for the posterior cruciate sacrificing component was then performed and a trial component on the femur and tibia was applied. The femoral component was clipped into place with the appropriate external rotation. This was confirmed by the navigation device, ensuring the appropriate position of the tibial component on the proximal tibia. The patella was calipered for thickness and osteotomized at the appropriate level. A lollipop was used to drill the three lugholes in the patella and then a trial component was applied. The knee was taken through a range of motion and found to have excellent tracking of the patella from full extension to full flexion, with good stability, varus/valgus throughout range of motion. The trial components were then removed. Before removing the tibial tray, the keyhole was made. The knee was then thoroughly irrigated with antibiotic irrigation. The real components were then cemented in, using modern generation cement techniques with antibiotic cement and pressurization. After the cement was hardened, the knee was thoroughly inspected to remove all excess cement. The real polyethylene component was then clipped into place. Again, range of motion, stability and tracking were found to be excellent throughout. The knee was then pulse antibiotic irrigated and dried. Vancomycin powder was placed into the knee. The checkpoints were removed. The medial parapatellar arthrotomy was then closed using number 1 Vicryl interrupted suture. The knee was again taken through range of motion and found to have no undue tension on the repair and good tracking throughout. The subcutaneous was closed with 0 and 2-0 Vicryl and 3-0 Monocryl subcuticular for skin with skin glue. The pins were removed in the femur and the tibia and pulse antibiotic irrigated and closed with 4-0 undyed Vicryl. Sterile Aquacel dressing followed by a Molina dressing was applied. The tourniquet was then deflated. One more dose of TXA was administered at the end of the case. The patient was awakened from anesthesia and transferred to the recovery room in stable condition. X-rays revealed good position of the components. There were no complications. Estimated blood loss was negligible. Total tourniquet time was approximately 75 minutes. Lizeth FAUSTIN/[id number]
[2017-01-23] MEDS: GABAPENTIN 300 MG CAPSULE (FP) PO SCH (21:54)
[2017-01-23] MEDS: INSULIN DETEMIR 100 UNITS/ML MDV SQ SCH (21:55)
[2017-01-23] MEDS: diazePAM 2 MG TABLET PO SCH (21:55)
[2017-01-23] MEDS: SENNOSIDES/DOCUSATE COMBO (SENNA PLUS) TABLET (UD) PO SCH (21:55)
[2017-01-23] MEDS ORDERED: INSULIN (NOVOLOG) ASPART 100 UNITS/ML 10ML VIAL ONE (21:58)
[2017-01-23] MEDS ORDERED: LISINOPRIL 20 MG TABLET (FP) PO SCH (22:00)
[2017-01-23] MEDS ORDERED: PATIENT'S OWN MEDICATION (NON-FORMULARY) (Lisinopril [Prinivil -] 40 MG) PO SCH (22:00)
[2017-01-23] MEDS ORDERED: PATIENT'S OWN MEDICATION (NON-FORMULARY) (Metformin Hcl [Metformin Hcl Er] 1,000 MG) PO SCH (22:00)
[2017-01-24] MEDS: CEFAZOLIN 2 GM/D5W 50 ML IVPB SCH
[2017-01-24] MEDS: oxyCODONE HCL 5 MG TABLET PO PRN ×2 (06:26→20:45)
[2017-01-24] MEDS: cloNIDine HCL 0.1 MG TABLET PO SCH ×3 (06:27→21:50)
[2017-01-24] MEDS: diazePAM 2 MG TABLET PO SCH ×3 (06:27→21:52)
[2017-01-24] MEDS: ACETAMINOPHEN 325 MG TABLET (FP) PO SCH ×4 (06:28→17:02)
[2017-01-24] MEDS: INSULIN SLIDING SCALE (NOVOLOG) 1 VIAL SQ SCH ×4 (06:28→21:53)
[2017-01-24] MEDS ORDERED: INSULIN (NOVOLOG) ASPART 100 UNITS/ML 10ML VIAL ONE ×4 (06:31→20:57)
[2017-01-24] MEDS: ASPIRIN 325 MG TABLET PO SCH (07:43)
--- NOTE | 2017-01-24 08:02 | PN ---
Progress Note (short form) - Note Progress Note: Ortho Pt seen and examined s/p right nichole tkr pod #1, c/o pain and JEREZ Selected Entries 01/24/17 06:00 Temperature 98.3 F Pulse Rate 58 L Respiratory 20 Rate Blood Pressure 164/61 dressing c/d/i, calf soft, nt nvi cbc pending a/p Anesthesia f/u for pain and JEREZ Restart IVF PT dvt ppx pain control d/c planning
[2017-01-24] MEDS ORDERED: PT OWN MED DRAWER 7, Y5N ONE (08:12)
[2017-01-24] MEDS: GABAPENTIN 300 MG CAPSULE (FP) PO SCH ×3 (08:14→22:33)
[2017-01-24] MEDS: oxyCODONE HCL 10 MG SUSTAINED ACTING TABLET PO SCH ×3 (08:16→21:50)
[2017-01-24] MEDS: SENNOSIDES/DOCUSATE COMBO (SENNA PLUS) TABLET (UD) PO SCH ×3 (08:24→21:49)
[2017-01-24] MEDS ORDERED: oxyCODONE HCL 5 MG TABLET PO ONE (08:25)
[2017-01-24] MEDS ORDERED: PATIENT'S OWN MEDICATION (NON-FORMULARY) (Ferrous Sulfate [Ferrous Sulfate] 325 MG) PO SCH (10:00)
[2017-01-24] MEDS: LACTATED RINGERS SOLUTION 1,000 ML IV SCH (10:19)
[2017-01-24] MEDS: ALLOPURINOL 100 MG TABLET (FP) PO SCH (10:20)
[2017-01-24] MEDS: LISINOPRIL 20 MG TABLET (FP) PO SCH ×2 (10:20→22:05)
[2017-01-24] MEDS: PANTOPRAZOLE 40 MG TABLET (FP) PO SCH (10:20)
[2017-01-24] MEDS: TRIAMTERENE AND HCTZ - 37.5 MG/25 MG CAPSULE PO SCH (10:20)
[2017-01-24] MEDS: MULTIVITAMINS (DAILY MVI) TABLET (FP) PO SCH (10:20)
[2017-01-24] MEDS: FERROUS SO4 325 MG TABLET (FP) PO SCH (10:21)
[2017-01-24] MEDS: Insulin (LOG) Aspart 100 UNITS/ML VIAL SQ SCH ×2 (11:48→17:02)
[2017-01-24] MEDS: INSULIN DETEMIR 100 UNITS/ML MDV SQ SCH (21:52)
[2017-01-25] MEDS: oxyCODONE HCL 5 MG TABLET PO PRN ×3 (00:33→21:24)
[2017-01-25] MEDS: ACETAMINOPHEN 325 MG TABLET (FP) PO SCH ×5 (00:35→23:19)
[2017-01-25] MEDS: cloNIDine HCL 0.1 MG TABLET PO SCH ×3 (05:28→21:25)
[2017-01-25] MEDS: diazePAM 2 MG TABLET PO SCH ×3 (06:11→21:25)
[2017-01-25] MEDS: INSULIN SLIDING SCALE (NOVOLOG) 1 VIAL SQ SCH ×4 (06:12→21:25)
[2017-01-25] MEDS ORDERED: INSULIN (NOVOLOG) ASPART 100 UNITS/ML 10ML VIAL ONE ×4 (06:13→21:20)
[2017-01-25] MEDS: Insulin (LOG) Aspart 100 UNITS/ML VIAL SQ SCH ×3 (07:02→16:35)
[2017-01-25] MEDS: ASPIRIN 325 MG TABLET PO SCH (07:59)
[2017-01-25 08:58] LABS: MCHC 33.9 g/dl (32.0-36.0); MEAN CELL VOLUME 79.7 fl (80-96); PLATELET COUNT 255 K/MM3 (134-434); RDW 16.5 % (11.6-15.6); WHITE BLOOD COUNT 12.9 K/mm3 (4.0-10.8)
--- NOTE | 2017-01-25 09:17 | PN ---
Progress Note (short form) - Note Progress Note: Ortho Pt seen and examined s/p right nichole tkr pod #2, pain is better controlled today , denies JEREZ Selected Entries 01/25/17 06:00 Temperature 98.2 F Pulse Rate 73 Respiratory 20 Rate Blood Pressure 161/60 Laboratory Tests 01/25/17 08:30 WBC 12.9 H D Hgb 9.8 L Hct 29.0 L Plt Count 255 D dressing c/d/i, calf soft, nt nvi a/p PT dvt ppx pain control d/c planning to snf
[2017-01-25] MEDS: LISINOPRIL 20 MG TABLET (FP) PO SCH ×3 (09:45→21:25)
[2017-01-25] MEDS: SENNOSIDES/DOCUSATE COMBO (SENNA PLUS) TABLET (UD) PO SCH ×2 (09:45→21:24)
[2017-01-25] MEDS: GABAPENTIN 300 MG CAPSULE (FP) PO SCH ×2 (09:45→21:25)
[2017-01-25] MEDS: ALLOPURINOL 100 MG TABLET (FP) PO SCH (09:45)
[2017-01-25] MEDS: PANTOPRAZOLE 40 MG TABLET (FP) PO SCH (09:46)
[2017-01-25] MEDS: FERROUS SO4 325 MG TABLET (FP) PO SCH (09:46)
[2017-01-25] MEDS: MULTIVITAMINS (DAILY MVI) TABLET (FP) PO SCH (09:46)
[2017-01-25] MEDS: oxyCODONE HCL 10 MG SUSTAINED ACTING TABLET PO SCH (09:47)
[2017-01-25] MEDS ORDERED: PT OWN MED DRAWER 7, Y5N ONE (09:48)
[2017-01-25] MEDS: TRIAMTERENE AND HCTZ - 37.5 MG/25 MG CAPSULE PO SCH ×2 (09:48→10:01)
[2017-01-25] MEDS: LACTATED RINGERS SOLUTION 1,000 ML IV SCH (10:01)
[2017-01-25] MEDS: INSULIN DETEMIR 100 UNITS/ML MDV SQ SCH (21:26)
[2017-01-26] MEDS: ACETAMINOPHEN 325 MG TABLET (FP) PO SCH ×2 (06:16→11:28)
[2017-01-26] MEDS: cloNIDine HCL 0.1 MG TABLET PO SCH ×2 (06:16→15:02)
[2017-01-26] MEDS: diazePAM 2 MG TABLET PO SCH ×2 (06:17→15:03)
[2017-01-26] MEDS: INSULIN SLIDING SCALE (NOVOLOG) 1 VIAL SQ SCH ×2 (06:18→11:29)
[2017-01-26 06:39] VITALS: TEMP 98.2
[2017-01-26] MEDS ORDERED: INSULIN (NOVOLOG) ASPART 100 UNITS/ML 10ML VIAL ONE ×3 (08:12→11:27)
[2017-01-26] MEDS: ASPIRIN 325 MG TABLET PO SCH (08:15)
[2017-01-26] MEDS: Insulin (LOG) Aspart 100 UNITS/ML VIAL SQ SCH ×2 (08:16→11:29)
[2017-01-26] MEDS ORDERED: PT OWN MED DRAWER 7, Y5N ONE (10:13)
[2017-01-26] MEDS: LACTATED RINGERS SOLUTION 1,000 ML IV SCH (10:29)
[2017-01-26] MEDS: ALLOPURINOL 100 MG TABLET (FP) PO SCH (10:57)
[2017-01-26] MEDS: FERROUS SO4 325 MG TABLET (FP) PO SCH (10:58)
[2017-01-26] MEDS: MULTIVITAMINS (DAILY MVI) TABLET (FP) PO SCH (10:58)
[2017-01-26] MEDS: TRIAMTERENE AND HCTZ - 37.5 MG/25 MG CAPSULE PO SCH (10:58)
[2017-01-26] MEDS: LISINOPRIL 20 MG TABLET (FP) PO SCH (10:58)
[2017-01-26] MEDS: GABAPENTIN 300 MG CAPSULE (FP) PO SCH (10:58)
[2017-01-26] MEDS: PANTOPRAZOLE 40 MG TABLET (FP) PO SCH (10:58)
[2017-01-26] MEDS: SENNOSIDES/DOCUSATE COMBO (SENNA PLUS) TABLET (UD) PO SCH (10:58)
--- NOTE | 2017-01-26 11:18 | PN ---
Progress Note (short form) - Note Progress Note: Ortho Pt seen and examined s/p right nichole tkr pod #3, improving Selected Entries 01/26/17 06:00 Temperature 98.2 F Pulse Rate 73 Respiratory 20 Rate Blood Pressure 171/57 dressing c/d/i, calf soft, nt nvi a/p PT dvt ppx pain control d/c planning to snf
[2017-01-26 13:39] VITALS: BP 150/62; PULSE 70
[2017-01-26] MEDS ORDERED: oxyCODONE HCL 5 MG TABLET PO ONE (16:00)
--- NOTE | 2017-01-29 13:51 | PATH ---
Surgical Pathology Report Patient Name: LILO VENTURA Med. Rec. #: [id number] /Age/Gender: 1945 (Age: 71) / F Account: [id number] Location: [facility] Taken: 01/23/2017 Received: 01/23/2017 Reported: 01/29/2017 Physicians: Ham Lua M.D. Specimen(s) Received RIGHT KNEE BONE AND TISSUE Clinical History Right knee osteoarthritis Final Diagnosis KNEE BONE AND TISSUE, RIGHT, TOTAL KNEE REPLACEMENT: DEGENERATIVE JOINT DISEASE. Electronically Signed Carla Morales M.D. Gross Description Received in formalin labeled "right knee bone and tissue," is a 12.0 x 11.0 x 3.0 cm aggregate of multiple hidalgo-yellow, irregular portions of bone and soft tissue. No areas of eburnation are identified. The articular surfaces are hidalgo-yellow and focally granular. The underlying trabecular bone is yellow and hard. Patient Access Coordinator sections are submitted in one cassette, following decalcification. [facility]
== END 2017-01-26 16:15 | disposition home health service (06) | DRG 470 ==
LOC: FM/S 05:53
PROVIDERS: ADMIT Orthopaedic Surgery; ATTEND Orthopaedic Surgery
PROC: 8E0Y0CZ Robotic Assisted Procedure of Lower Extremity, Open Approach (ICD-10-PCS; 2017-01-23)
PROC: 0SRC0J9 Replacement of Right Knee Joint with Synthetic Substitute, Cemented, Open Approach (ICD-10-PCS; principal; 2017-01-23 09:11)
DX: M17.11 Unilateral primary osteoarthritis, right knee (principal); I10 Essential (primary) hypertension; E11.9 Type 2 diabetes mellitus without complications
CPT/HCPCS: 36415; 73560-TC-RT; 85027; 88304-TC; 88311-TC; 94010; 94760; 97116-GP; 97162; J0735; J3490

== ENCOUNTER 2017-02-19 08:46 | Emergency (ER) | payer OTHER ==
[2017-02-19] MEDS ORDERED: morphine CARPU-JECT 4 MG/1 ML DISP.SYRIN IVPUSH ONE (08:50)
[2017-02-19] MEDS ORDERED: SODIUM CHLORIDE 500 ML IV STA (08:50)
--- NOTE | 2017-02-19 08:57 | PDOC ---
History of Present Illness - General Chief Complaint: Pain, Acute Stated Complaint: PAIN ABDOMEN AND BACK Time Seen by Provider: 02/19/17 08:48 History Source: Patient Exam Limitations: No Limitations - History of Present Illness Travel History: No Initial Comments: 02/19/17 08:58 71y F hx of IDDM, HTN, kidney stones, presents with abdominal pain. Pt states she felt well yetserday during the day, in the evening she started to have mild epigastric pain radiating to the back. The pain started somewhat gradually last night but worsened over time to this morning where it is much more severe. Pt denies any nausea/vomiting, fever/chills, diarrhea, dysuria/hematuria, chest pain, sob. Pt staes the pain feels differently from her prior kidney stones. No alleviating or exacerbating factors. No recent falls/injury. Pt denies any radiationg of the pain to the extremities, denies any numbness/tingling/ weakness. Past History - Past Medical History Allergies/Adverse Reactions: Allergies Allergy/AdvReac Type Severity Reaction Status Date / Time latex Allergy Severe Swelling Verified 02/19/17 08:47 insulin lispro [From Humalog] Allergy Intermediate Generalized Verified 08:47 rash and itching naproxen [From Naprosyn] Allergy Swelling Verified 02/19/17 08:47 oxaprozin [From Daypro] Allergy Swelling Verified 02/19/17 08:47 saxagliptin HCl Allergy leg edema Verified 02/19/17 08:47 [From Onglyza] latex Allergy Severe Uncoded 01/16/17 11:08 Mushrooms Allergy Uncoded 01/16/17 11:08 naproxen Allergy Uncoded 01/16/17 11:08 Home Medications: Ambulatory Orders Cholecalciferol (Vitamin D3) [Vitamin D3] 2,000 unit PO DAILY 10/19/16 Clonidine HCl [Catapres] 0.2 mg PO TID 10/19/16 Insulin (Levemir) [Levemir Vial] 30 unit SQ ASDIR 10/19/16 Metformin HCl [Metformin HCl ER] 1,000 mg PO BID 10/19/16 Triamterene/Hydrochlorothiazid [Triamterene-Hctz 37.5-25 mg Cp] 1 each PO DAILY 10/19/16 Allopurinol [Zyloprim -] 100 mg PO DAILY 12/20/16 Ferrous Sulfate 325 mg PO DAILY 01/16/17 Insulin (LOG) Aspart [NovoLOG -] 7 units SQ TID 01/16/17 Aspirin [ASA -] 325 mg PO DAILY@0800 tablet 01/23/17 Oxycodone HCl/Acetaminophen [Percocet 5-325 mg Tablet -] 1 - 2 tab PO Q6H #50 tab MDD 8 01/23/17 Anemia: No Asthma: No Cancer: No Cardiac Disorders: No CVA: No COPD: No CHF: No Dementia: No Diabetes: Yes (5YRS) GI Disorders: No Disorders: Yes (kidney stones) HTN: Yes Hypercholesterolemia: No Liver Disease: No Suicide Attempt (Hx): No Seizures: No Thyroid Disease: No - Surgical History Abdominal Surgery: Yes (HERNIA REPAIR WITH MESH IMPLANT) Appendectomy: No Cardiac Surgery: No Cholecystectomy: No Lung Surgery: No Neurologic Surgery: No Orthopedic Surgery: Yes (LT KNEE REPLACEMENT) - Psycho/Social/Smoking Cessation Hx Anxiety: No Suicidal Ideation: No Smoking Status: No Smoking History: Never smoked Have you smoked in the past 12 months: No Number of Cigarettes Smoked Daily: 0 Cigars Per Day: 0 Hx Alcohol Use: No Drug/Substance Use Hx: No Substance Use Type: None Hx Substance Use Treatment: No Review of Systems - Review of Systems Able to Perform ROS?: Yes Comments:: 02/19/17 09:01 Constitutional - no reported Fever, Chills, HEENT: no reported vision changes, sore throat Respiratory: no reported cough, sob, hemoptysis Cardiac: no reported chest pain, palpitations, light headedness, leg swelling Abd/GI: +abdpminal pain no reported nausea, vomiting, blood per rectum, melena , diarrhea : no reported dysuria, frequency, discharge Musculskelatal - no reported back pain, joint swelling skin - no reported bruising, erythema, rash neurological: no reported headache, numbness, focal weakness, tingling, ataxia, hematologic: no reported anemia, easy bruising, easy bleeding *Physical Exam - Physical Exam Comments: 02/19/17 09:02 GENERAL: The patient is awake, alert, and fully oriented, appears uncomfortable HEAD: Normocephalic, atraumatic. EYES: extraocular movements intact, sclera anicteric, conjunctiva clear. ENT: Normal voice, Moist mucous membranes. NECK: Normal range of motion, supple LUNGS: Breath sounds equal, clear to auscultation bilaterally. No wheezes, no rhonchi, no rales. HEART: Regular rate and rhythm, normal S1 and S2 without murmur, rub or gallop. ABDOMEN: Soft, nontender, normoactive bowel sounds. No guarding, no rebound. . No CVA tenderness EXTREMITIES: +well healed scar on L knee, Normal range of motion, +1 edema w/o calf tenderness or homans on LLE, dp pulses symmetric NEUROLOGICAL: No facial assymetry, Normal speech, moving all 4 extremities spontaneously and symmetrically PSYCH: Normal mood, normal affect. SKIN: Warm, Dry, normal turgor, Heart Score/ECG Review - ECG Impressions Comment:: Twelve-lead EKG was performed and reviewed by me. There is normal sinus rhythm with a normal rate. Rate of 76 LVH QRS duration of 126 ED Treatment Course - LABORATORY CBC & Chemistry Diagram: 02/19/17 09:05 02/19/17 09:05 Medical Decision Making - Medical Decision Making 02/19/17 14:19 71y F presenting with abdominal pain radiating to back since last night w/o f/c n/v ct abd shows mild L sided hydro that is old no other acute finding pt states she is feeling significantly improved tolerated oral intake a of a meal here case dw dr. medina agree with our mangement and d/c with pmd fu returnprecuations were discussed I discussed the physical exam findings, ancillary test results and final diagnoses with the patient. I answered all of the patient's questions. The patient was satisfied with the care received and felt comfortable with the discharge plan and treatment plan. The patient will call their primary care physician within 24 hours to arrange follow-up and will return to the Emergency Department with any new, persistent or worsening symptoms. *DC/Admit/Observation/Transfer Diagnosis at time of Disposition: Hydronephrosis, left Abdominal pain Qualifiers: Abdominal location: epigastric Qualified Code(s): R10.13 - Epigastric pain - Discharge Dispostion Disposition: HOME Condition at time of disposition: Improved Admit: No - Referrals Referrals: Eyal Medina MD [Staff Physician] - - Patient Instructions Printed Discharge Instructions: DI for Abdominal Pain-Adult Additional Instructions: Return to the emergency department immediately with ANY new, persistent or worsening symptoms including worsening abdominal pain, fevers, inability to tolerate oral intake, chest pain, shortness of breath or any other concerns. Stay well hydrated. You MUST call and follow up with your doctor tomorrow. Your emergency department visit is not complete without a followup with your doctor for reevaluation. Please make sure your doctor reviews the results of your emergency evaluation. Print Language: [place]
[2017-02-19 09:29] VITALS: TEMP 98.5; BMI 34.9
[2017-02-19 09:32] LABS: WHITE BLOOD COUNT 11.8 K/mm3 (4.0-10.8)
[2017-02-19 09:33] LABS: BASOPHIL 3.9 % (0-2.0); EOSINOPHIL 1.4 % (0-4.5); MCH 24.8 pg (25.7-33.7); MCHC 32.3 g/dl (32.0-36.0); MEAN CELL VOLUME 76.9 fl (80-96); MEAN PLT VOLUME 8.4 fl (7.5-11.1); NEUTROPHILS 77.3 % (42.8-82.8); PLATELET COUNT 495 K/MM3 (134-434); RDW 16.5 % (11.6-15.6)
[2017-02-19] MEDS ORDERED: HYDROmorphone HCL CARPU-JECT 1 MG/1 ML DISP.SYRIN ONE (09:37)
[2017-02-19] MEDS ORDERED: HYDROmorphone HCL CARPU-JECT 2 MG/1 ML DISP.SYRIN IVPUSH ONE (09:37)
[2017-02-19 09:42] LABS: ALBUMIN 3.7 g/dl (3.5-5.0); ALK PHOS 104 U/L (32-92); ANION GAP 14 (8-16); BILIRUBIN,TOTAL 0.9 mg/dl (0.2-1.0); CALCIUM 9.5 mg/dl (8.4-10.2); CO2 24 mmol/L (22-28); CREATININE 1.4 mg/dl (0.6-1.3); GLUCOSE,RANDOM 199 mg/dl (74-106); SGOT/AST 26 U/L (10-42); SGPT/ALT 9 U/L (10-40)
[2017-02-19 10:38] LABS: TROPONIN I (DFP) 0.05 ng/ml (0.03-0.50)
[2017-02-19 10:55] LABS: PH,URINE 6.5 (4.5-8); URINE APPEARANCE Clear; URINE BILIRUBIN Negative (NEGATIVE); URINE GLUCOSE (UA) Negative (NEGATIVE); URINE KETONE Negative (NEGATIVE); URINE LEUK ESTERASE Negative (NEGATIVE); URINE NITRITE Negative (NEGATIVE); URINE UROBILINOGEN 0.2 E.U/dl (0.2-1.0)
[2017-02-19 10:58] LABS: URINE BLOOD 1+ (NEGATIVE); URINE COLOR YELLOW; URINE PROTEIN 3+ (NEGATIVE)
[2017-02-19 10:59] LABS: URINE BACTERIA MODERATE /hpf (NEGATIVE); URINE WBC 0-3 (3-5)
[2017-02-19 11:40] LABS: PLATELET ESTIMATE SLT INCREASED (NORMAL)
[2017-02-19 11:41] LABS: ANISOCYTOSIS 1+; FRAGMENTED CELL 1+; HYPOCHROMIA 1+; SPHEROCYTE 1+; TEAR DROP CELLS 1+
[2017-02-19] MEDS ORDERED: ACETAMINOPHEN 1000 MG/100 ML VIAL (NON FORMULARY) IVPB ONE (12:50)
[2017-02-19] MEDS ORDERED: ACETAMINOPHEN INJECTION 100 ML IVPB ONE (12:51)
[2017-02-19 13:57] VITALS: BP 191/97; PULSE 78
--- NOTE | 2017-02-20 11:42 | EKG ---
Test Reason : Blood Pressure : / mmHG Vent. Rate : 076 BPM Atrial Rate : 076 BPM P-R Int : 180 ms QRS Dur : 126 ms QT Int : 424 ms P-R-T Axes : 069 -10 045 degrees QTc Int : 477 ms NORMAL SINUS RHYTHM LEFT VENTRICULAR HYPERTROPHY WITH QRS WIDENING ABNORMAL ECG WHEN COMPARED WITH ECG OF 15-JAN-2017 08:43, NO SIGNIFICANT CHANGE WAS FOUND Confirmed by ALBINA LEUNG MD ([id number]) on 02/20/2017 11:42:08 AM Referred By: BRIT Confirmed By:ALBINA LEUNG MD
== END 2017-02-19 15:35 | disposition home or self-care (01) ==
LOC: FER 08:46
PROC: 3E033NZ Introduction of Analgesics, Hypnotics, Sedatives into Peripheral Vein, Percutaneous Approach (ICD-10-PCS; principal; 2017-02-19)
PROC: 3E0337Z Introduction of Electrolytic and Water Balance Substance into Peripheral Vein, Percutaneous Approach (ICD-10-PCS; 2017-02-19)
DX: N13.30 Unspecified hydronephrosis (principal); R10.13 Epigastric pain; E11.9 Type 2 diabetes mellitus without complications; I10 Essential (primary) hypertension; Z87.442 Personal history of urinary calculi; Z96.652 Presence of left artificial knee joint; Z79.01 Long term (current) use of anticoagulants; Z79.84 Long term (current) use of oral hypoglycemic drugs
CPT/HCPCS: 36415; 74176-TC; 80053; 81003; 81015; 82550; 83690; 84484; 85025; 93005; 99283-25

== ENCOUNTER 2018-03-20 08:04 | Day surgery (SDC) | payer OTHER ==
[2018-03-19 12:30] VITALS: BMI 35.7
[2018-03-20] MEDS ORDERED: PROPOFOL 20 ML ONE ×2 (08:09)
[2018-03-20] MEDS ORDERED: LIDOCAINE HCL/PF 2% SDV 5ML VIAL ONE (08:10)
[2018-03-20 14:52] VITALS: TEMP 98.1
[2018-03-20 15:13] VITALS: BP 154/86; PULSE 59
--- NOTE | 2018-03-21 12:11 | PATH ---
Surgical Pathology Report Patient Name: LILO VENTURA [facility]. Rec. #: [id number] /Age/Gender: 1945 (Age: 72) / F Account: [id number] Location: [facility]-ENDOSCOPY Taken: 03/20/2018 Received: 03/20/2018 Reported: 03/21/2018 Physicians: Ishaan Cedillo M.D. Specimen(s) Received A: DUODENUM B: ANTRUM Clinical History Anemia Postoperative diagnosis: Rule out celiac disease, iron deficiency anemia Final Diagnosis A. DUODENUM, BIOPSY: DUODENAL MUCOSA WITHOUT SIGNIFICANT PATHOLOGIC FINDINGS. B. STOMACH, ANTRUM, BIOPSY: GASTRIC ANTRAL MUCOSA WITH MILD CHRONIC GASTRITIS. IMMUNOHISTOCHEMICAL STAIN FOR H. PYLORI IS NEGATIVE. Electronically Signed Sonia Rios M.D. Gross Description A. Received in formalin, labeled "duodenum" are 3 hidalgo, irregular portions of soft tissue ranging from 0.2-0.5 cm. in greatest dimension. The specimens are submitted in toto in one cassette. B. Received in formalin, labeled "antrum" are 2 hidalgo, irregular portions of soft tissue averaging 0.4 cm. in greatest dimension. The specimens are submitted in toto in one cassette. /03/20/2018 saudi03/20/2018
== END 2018-03-20 11:00 | disposition home or self-care (01) ==
LOC: FASU-ENDO 08:04
PROVIDERS: ATTEND Internal Medicine Gastroenterology
PROC: 0DB68ZX Excision of Stomach, Via Natural or Artificial Opening Endoscopic, Diagnostic (ICD-10-PCS; 2018-03-20)
PROC: 0DJD8ZZ Inspection of Lower Intestinal Tract, Via Natural or Artificial Opening Endoscopic (ICD-10-PCS; principal; 2018-03-20 09:21)
PROC: 0DB98ZX Excision of Duodenum, Via Natural or Artificial Opening Endoscopic, Diagnostic (ICD-10-PCS; 2018-03-20 09:21)
DX: D50.9 Iron deficiency anemia, unspecified (principal); K57.30 Diverticulosis of large intestine without perforation or abscess without bleeding; K29.50 Unspecified chronic gastritis without bleeding
CPT/HCPCS: 82962; 88305-TC; 88342-TC

== ENCOUNTER 2018-11-16 13:53 | Inpatient (IN) | payer OTHER ==
[2018-11-16] MEDS ORDERED: FAMOTIDINE 20 MG/50 ML IVPB 20 MG/50 ML MG IVPB ONE ×2 (14:19→14:37)
[2018-11-16] MEDS ORDERED: ACETAMINOPHEN 1000 MG/100 ML VIAL (NON FORMULARY) IVPB ONE (14:19)
[2018-11-16] MEDS ORDERED: ACETAMINOPHEN INJECTION 100 ML IVPB ONE (14:36)
[2018-11-16] MEDS ORDERED: SODIUM CHLORIDE 1,000 ML IV STA (14:38)
[2018-11-16] MEDS ORDERED: MORPHINE SULFATE 2 MG/ML VIAL ONE ×3 (14:38→20:47)
[2018-11-16] MEDS ORDERED: morphine CARPU-JECT 4 MG/1 ML DISP.SYRIN IVPUSH ONE ×2 (14:38→16:28)
[2018-11-16 14:52] LABS: BASO % 0.6 % (0-2.0); EOS % 0.8 % (0-4.5); HEMATOCRIT 34.2 % (32.4-45.2); HEMOGLOBIN 11.4 GM/dL (10.7-15.3); LYMPH % 6.6 % (8-40); MCH 26.6 pg (25.7-33.7); MCHC 33.4 g/dl (32.0-36.0); MEAN CELL VOLUME 79.6 fl (80-96); MONO % 5.5 % (3.8-10.2); NEUT % 86.5 % (42.8-82.8); PLATELET COUNT 398 K/MM3 (134-434); RBC 4.29 M/mm3 (3.60-5.2); RDW 18.9 % (11.6-15.6); WHITE BLOOD COUNT 11.5 K/mm3 (4.0-10.0)
--- NOTE | 2018-11-16 14:57 | PDOC ---
History of Present Illness - General Chief Complaint: Pain Stated Complaint: ABD PAIN Time Seen by Provider: 11/16/18 14:06 History Source: Patient Exam Limitations: No Limitations - History of Present Illness Initial Comments: 11/16/18 14:53 Pt is a 72yo F with PMH of DM, HTN, Hernia repair with mesh, Cholecystectomy, Kidney Stones presenting to ED with complaints of sudden onset epigastric pain that started at around 10 this AM. Pt states the pain is 10/10, is sharp, radiates to the back, associated with nausea. She has had pain like this before but many years ago. She recently had stents placed for a L kidney stone and is taking Cipro for a UTI. She denies fever, chills, vomiting, numbness/tingling. Last BM was yesterday and was non bloody and not tarry. She ate "a little bit" of food earlier today at around 11am. PMD: Shanice Uro: Brad Fleming PMH: see hpi PSH: see hpi Meds: see med rec Allergies: latex Past History - Past Medical History Allergies/Adverse Reactions: Allergies Allergy/AdvReac Type Severity Reaction Status Date / Time latex Allergy Severe Swelling Verified 11/16/18 13:55 insulin lispro [From Humalog] Allergy Intermediate Generalized Verified 13:55 rash and itching naproxen [From Naprosyn] Allergy Swelling Verified 11/16/18 13:55 oxaprozin [From Daypro] Allergy Swelling Verified 11/16/18 13:55 saxagliptin HCl Allergy leg edema Verified 11/16/18 13:55 [From Onglyza] latex Allergy Severe Uncoded 11/16/18 13:55 Mushrooms Allergy Uncoded 11/16/18 13:55 naproxen Allergy Uncoded 11/16/18 13:55 Home Medications: Ambulatory Orders Cholecalciferol (Vitamin D3) [Vitamin D3] 2,000 unit PO DAILY 10/19/16 Insulin (Levemir) [Levemir Vial] 55 unit SQ ASDIR 10/19/16 Allopurinol [Zyloprim -] 100 mg PO DAILY 12/20/16 Ferrous Sulfate 325 mg PO DAILY 01/16/17 Insulin (LOG) Aspart [NovoLOG -] 7 units SQ DAILY 01/16/17 Aspirin [ASA -] 81 mg PO DAILY 03/19/18 Anemia: No Asthma: No Cancer: No Cardiac Disorders: No CVA: No COPD: No CHF: No Dementia: No Diabetes: Yes GI Disorders: No Disorders: Yes (kidney stones) HTN: Yes Hypercholesterolemia: No Liver Disease: No Seizures: No Thyroid Disease: No - Surgical History Abdominal Surgery: Yes (HERNIA REPAIR WITH MESH IMPLANT) Appendectomy: No Cardiac Surgery: No Cholecystectomy: No Lung Surgery: No Neurologic Surgery: No Orthopedic Surgery: Yes (L/R KNEE REPLACEMENT) - Immunization History Immunization Up to Date: Yes - Suicide/Smoking/Psychosocial Hx Smoking Status: No Smoking History: Never smoked Have you smoked in the past 12 months: No Number of Cigarettes Smoked Daily: 0 Cigars Per Day: 0 Hx Alcohol Use: No Drug/Substance Use Hx: No Substance Use Type: None Hx Substance Use Treatment: No Review of Systems - Review of Systems Constitutional: No: Chills, Fever, Weakness HEENTM: No: Symptoms Reported Respiratory: No: Symptoms reported Cardiac (ROS): No: Symptoms Reported ABD/GI: Yes: See HPI, Nausea, Abdominal cramping. No: Constipated, Diarrhea, Rectal Bleeding, Vomiting, Tarry Stools : No: Burning, Dysuria, Hematuria Musculoskeletal: No: Symptoms Reported Integumentary: No: Symptoms Reported Neurological: No: Symptoms reported *Physical Exam - Vital Signs Last Vital Signs Temp Pulse Resp BP Pulse Ox 98.1 F 69 16 195/8 H 99 11/16/18 13:56 11/16/18 13:56 11/16/18 13:56 11/16/18 13:56 11/16/18 13:56 - Physical Exam General Appearance: Yes: Appropriately Dressed, Moderate Distress, Obese HEENT: positive: EOMI, RAJANI, Pharynx Normal. negative: Pale Conjunctivae, Scleral Icterus (R), Scleral Icterus (L) Neck: positive: Trachea midline, Supple. negative: Lymphadenopathy (R), Lymphadenopathy (L) Respiratory/Chest: positive: Lungs Clear, Normal Breath Sounds. negative: Crackles, Rales, Wheezing Cardiovascular: positive: Regular Rhythm, Regular Rate, S1, S2. negative: Edema , JVD, Murmur, Systolic Murmur Vascular Pulses: Carotid (R): 2+, Carotid (L): 2+, Dorsalis-Pedis (R): 2+, Doralis-Pedis (L): 2+ Gastrointestinal/Abdominal: positive: Normal Bowel Sounds, Soft, Protuberent, Tenderness (diffuse tenderness, greatest in RUQ/RLQ/periumbilical). negative: Pulsatile Mass, Guarding, Rebound, Hernia, Mass Musculoskeletal: negative: CVA Tenderness, CVA Tenderness (R), CVA Tenderness (L ) Extremity: positive: Normal Capillary Refill, Pelvis Stable. negative: Pedal Edema, Calf Tenderness Neurologic: positive: radiology orderly II-XII NML intact, Fully Oriented, Alert, Normal Mood/ Affect, Normal Response, Motor Strength 5/5 Moderate Sedation - Procedure Monitoring Vital Signs: Procedure Monitoring Vital Signs Temperature 98.1 F 11/16/18 13:56 Pulse Rate 69 11/16/18 13:56 Respiratory Rate 16 11/16/18 13:56 Blood Pressure 195/8 H 11/16/18 13:56 O2 Sat by Pulse Oximetry (%) 99 11/16/18 13:56 ED Treatment Course - LABORATORY CBC & Chemistry Diagram: 11/16/18 14:35 11/16/18 14:18 - Medications Given in the ED: ED Medications Discontinued Medications Generic Name Dose Route Start Last Admin Trade Name Freq PRN Reason Stop Dose Admin Acetaminophen 1,000 mg 11/16/18 14:19 11/16/18 14:30 Ofirmev Injection - IVPB 11/16/18 14:20 1,000 mg ONCE ONE Administration Famotidine/Sodium Chloride 20 mg in 50 mls @ 100 mls/hr 11/16/18 14:19 14:30 Pepcid 20 Mg Premixed Ivpb - IVPB 11/16/18 14:48 100 mls/hr ONCE ONE Administration Morphine Sulfate 2 mg 11/16/18 14:38 11/16/18 14:49 Morphine Injection - IVPUSH 11/16/18 14:39 2 mg ONCE ONE Administration Medical Decision Making - Medical Decision Making 11/16/18 14:56 Pt is a 72yo F with PMH of DM, HTN, Hernia repair with mesh, Cholecystectomy, Kidney Stones presenting to ED with complaints of sudden onset epigastric pain that started at around 10 this AM. Pt states the pain is 10/10, is sharp, radiates to the back, associated with nausea. She has had pain like this before but many years ago. She recently had stents placed for a L kidney stone and is taking Cipro for a UTI. She denies fever, chills, vomiting, numbness/tingling. Last BM was yesterday and was non bloody and not tarry. She ate "a little bit" of food earlier today at around 11am. Vitals: PE: distended, no fluid wave. no hernia, no mass, no tenderness or flank tenderness. . pulses palpable bilaterally ddx includes but not limited to pancreatitis, aaa, dissection, mesenteric ischemia, sbo, colitis, nephrolithiasis, pyelonephritis, pud, rupture, ACS -cbc, cmp, lactic, lipase, trop, ua, ucx -ekg -iv fluids, iv tylenol, pepcid, morphine Labs significant for wbc 11. lactic 2.8. pt getting fluids 11/16/18 15:[address] earlier this am. calling radiologist for read. no answer yet Images sent to imaging aviation safety technician. Pt still in pain. 4mg morphine. 11/16/18 18:32 CT: Solitary dilated loop of small bowel in RLQ. No proximal dilatation, most likley postop appearance rather than sbo correlate with surgical history. Bilateral renal cysts. L ureteral stent in good position, mild L hydro to bladder. Area of parenchymal scarring in L paracolic gutter. colonic diverticulosis. Dr. Rodney notified. Recommended more fluids. Will see pt. PT on Cipro for UTI. Will give Ceftriaxone IV here. Signed out to Dr. Pennington Most likely will need admission, pt is highly uncomfortable pain not controlled by morphine. May need enema? *DC/Admit/Observation/Transfer Diagnosis at time of Disposition: Abdominal pain Qualifiers: Abdominal location: unspecified location Qualified Code(s): R10.9 - Unspecified abdominal pain - Referrals Referrals: Elvin Prasad MD [Primary Care Provider] - - Patient Instructions - Post Discharge Activity
--- NOTE | 2018-11-16 14:59 | PDOC ---
Attending Attestation - HPI HPI: 11/16/18 15:51 The patient is a 72 year old female with a significant past medical history of diabetes, hypertension, kidney stones, and hernia repair who presents to the emergency department with right sided epigastric abdominal pain for 2 days. The patient reports that she was at home earlier today when she began to experience a sudden onset of severe pain (10/10) radiating to her back. She describes her pain as sharp and intermittent. She states that she had similar pain yesterday s /p taking her newly prescribed cipro but thought it could have been secondary to taking it on an empty stomach. The patient endorses a normal bowel movement yesterday and states that she ate some bread and tea today. She denies any other symptoms. She denies any fever, chills , nausea, vomiting, diarrhea, constipation or urinary symptoms. She denies any chest pain shortness of breath , headache or dizziness. The patient denies any other complaints. <Chico Wick - Last Filed: 11/16/18 15:51> - Resident Resident Name: Dulce Singh - ED Attending Attestation I have performed the following: I have examined & evaluated the patient, The case was reviewed & discussed with the resident, I agree w/resident's findings & plan, Exceptions are as noted - Physicial Exam PE: 11/16/18 15:00 GENERAL: The patient is in no acute distress. ENT: Ears normal, nares patent, oropharynx clear without exudates. Moist mucous membranes. NECK: Normal range of motion, supple, no nuchal rigidity LUNGS: Breath sounds equal, clear to auscultation bilaterally. No wheezes, and no crackles. HEART:Regular rate and rhythm, normal S1 and S2 without murmur, rub or gallop. ABDOMEN: Soft, minimally tender to palpation, normoactive bowel sounds. EXTREMITIES: Normal range of motion, no edema. NEUROLOGICAL: Cranial nerves II through XII grossly intact. Normal speech. No focal neurological deficits. SKIN: Warm, Dry, normal turgor, no rashes or lesions noted. - Medical Decision Making 11/16/18 15:47 72 yo F presenting to the ER with a complaint of abdominal pain S/p evaluation by Urologist who initiated cipro yesterday After taking this, she noted that her stomach hurt She took it again today after eating and noted that her abdomen hurt again It was not severe so she was able to got to her outpatient CT scan She returned home and noted that her pain worsened No fevers or chills (+) nausea, no vomiting No diarrhea Last BM was yesterday DD: colitis, sbo, ischemic colitis, mesenteric ischemia, retained biliary duct stone (pt s/p cholecystectomy) EKG Labs sent CT DONE as an outpatient (spiral) Tylenol/Pepcid/IVF ReAssess EKG - NSR rate of 65 bpm, axis nml, intervals abn - pr: 220ms (prolonged), QRS : 120ms, QTc: 476ms, LVH (similar to prior EKG) CT read pending Will give morphine for pain Re assess Signed out to Dr. Harp <Edwige Ramos - Last Filed: 11/22/18 10:29> Attestations - Attestations 11/16/18 15:51 Documentation prepared by Chico Wick, acting as chief medical officer for Edwige Ramos MD. <Chico Wick - Last Filed: 11/16/18 15:51>
[2018-11-16 15:16] LABS: ALBUMIN 3.4 g/dl (3.4-5.0); ALK PHOS 97 U/L (45-117); ANION GAP 8 MMOL/L (8-16); BILIRUBIN,TOTAL 0.8 mg/dL (0.2-1); BLOOD UREA NITROGEN 32 mg/dL (7-18); CALCIUM 9.1 mg/dL (8.5-10.1); CHLORIDE 102 mmol/L (98-107); CO2 27 mmol/L (21-32); CREATININE 1.5 mg/dL (0.55-1.3); GLUCOSE,RANDOM 265 mg/dL (74-106); POTASSIUM 4.1 mmol/L (3.5-5.1); SGOT/AST 10 U/L (15-37); SGPT/ALT 13 U/L (13-61); SODIUM 136 mmol/L (136-145); TOT PROT 7.8 g/dl (6.4-8.2)
[2018-11-16] MEDS ORDERED: morphine SULFATE 4 MG/ML VIAL ONE (16:29)
[2018-11-16 16:32] LABS: ACTIVATED PTT 25.8 SECONDS (25.2-36.5)
[2018-11-16 16:37] LABS: INR 1.19 (0.82-1.09); PROTHROMBIN TIME (PATIENT) 13.3 SEC (10.2-13.0)
--- NOTE | 2018-11-16 17:05 | EKG ---
Test Reason : Blood Pressure : / mmHG Vent. Rate : 065 BPM Atrial Rate : 065 BPM P-R Int : 220 ms QRS Dur : 120 ms QT Int : 458 ms P-R-T Axes : 073 -24 036 degrees QTc Int : 476 ms SINUS RHYTHM WITH 1ST DEGREE A-V BLOCK LEFT VENTRICULAR HYPERTROPHY WITH QRS WIDENING ABNORMAL ECG WHEN COMPARED WITH ECG OF 19-FEB-2017 09:32, IN INTERVAL HAS INCREASED Confirmed by DANICA CAMARGO, AGNES ([id number]) on 11/16/2018 5:04:59 PM Referred By: Confirmed By:AGNES MISHRA MD
[2018-11-16] MEDS ORDERED: LACTATED RINGERS SOLUTION 1000 ML INFUS.BAG IV ONE (17:58)
[2018-11-16] MEDS ORDERED: CEFTRIAXONE 1 GM in DEXTROSE 5%-WATER - 100 ML IVPB ONE (19:11)
[2018-11-16 19:21] LABS: EPI CELLS 0.3 /HPF (0-5); PH,URINE 8.5 (5.0-8.0); URINE APPEARANCE CLEAR; URINE BACTERIA 2.7 /hpf (NEGATIVE); URINE BILIRUBIN NEGATIVE (<2.0 mg/dL); URINE CASTS 0 /hpf (0-8); URINE COLOR YELLOW; URINE GLUCOSE (UA) NEGATIVE (NEGATIVE); URINE KETONE NEGATIVE (NEGATIVE); URINE LEUK ESTERASE NEGATIVE (NEGATIVE); URINE NITRITE NEGATIVE (NEGATIVE); URINE PROTEIN 3+ (NEGATIVE); URINE RBC 41 /hpf (0-4); URINE WBC 1 /hpf (0-5)
[2018-11-16] MEDS ORDERED: CEFTRIAXONE 1 GM/50 ML BAG ONE (19:26)
[2018-11-16] MEDS ORDERED: morphine CARPU-JECT 2 MG/1 ML DISP.SYRIN IVPUSH ONE (19:46)
--- NOTE | 2018-11-16 19:49 | PDOC ---
*Physical Exam - Vital Signs Last Vital Signs Temp Pulse Resp BP Pulse Ox 98.1 F 68 18 154/81 96 11/16/18 18:50 11/16/18 18:50 11/16/18 18:50 11/16/18 18:50 11/16/18 18:50 - Physical Exam Comments: 11/16/18 19:49 Patient was signed out to me by Dr. Singh. 72 yo F with a hx of DM, HTN, hernia repair with mesh, cholecystectomy, and nephrolithiasis who presented to the emergency department with epigastric pain that started at approximately 10 am. Per the patient, the pain is sharp, 10/10, with radiation to the back with nausea. Currently, she is taking ciprofloxacin for UTI and recently had ureteral stents placed on the left kidney for a stone. Denies fever, chills. Last BM was yesterday. ED Treatment Course - LABORATORY CBC & Chemistry Diagram: 12/01/18 05:30 12/01/18 05:30 - ADDITIONAL ORDERS Additional order review: Laboratory Results 11/16/18 11/16/18 11/16/18 18:40 14:35 14:18 PT with INR 13.3 H INR 1.19 PTT (Actin FS) 25.8 Sodium Potassium Chloride Carbon Dioxide Anion Gap BUN Creatinine Creat Clearance w eGFR Random Glucose Lactic Acid Calcium Total Bilirubin AST ALT Alkaline Phosphatase Troponin I 0.03 Total Protein Albumin Lipase 344 Urine Color Yellow Urine Appearance Clear Urine pH 8.5 H Ur Specific Rodessa 1.012 Urine Protein 3+ Urine Glucose (UA) Negative Urine Ketones Negative Urine Blood 1+ Urine Nitrite Negative Urine Bilirubin Negative Urine Urobilinogen 1.0 Ur Leukocyte Esterase Negative Urine WBC (Auto) 1 Urine RBC (Auto) 41 Urine Casts (Auto) 0 U Epithel Cells (Auto) 0.3 Urine Bacteria (Auto) 2.7 11/16/18 11/16/18 14:18 14:18 PT with INR INR PTT (Actin FS) Sodium 136 Potassium 4.1 Chloride 102 Carbon Dioxide 27 Anion Gap 8 BUN 32 H Creatinine 1.5 H Creat Clearance w eGFR 33.94 Random Glucose 265 H Lactic Acid 2.4 H* Calcium 9.1 Total Bilirubin 0.8 AST 10 L ALT 13 Alkaline Phosphatase 97 Troponin I Total Protein 7.8 Albumin 3.4 Lipase Urine Color Urine Appearance Urine pH Ur Specific Rodessa Urine Protein Urine Glucose (UA) Urine Ketones Urine Blood Urine Nitrite Urine Bilirubin Urine Urobilinogen Ur Leukocyte Esterase Urine WBC (Auto) Urine RBC (Auto) Urine Casts (Auto) U Epithel Cells (Auto) Urine Bacteria (Auto) 11/16/18 14:35 RBC 4.29 MCV 79.6 L MCHC 33.4 RDW 18.9 H MPV 9.0 Neutrophils % 86.5 H D Lymphocytes % 6.6 L D Monocytes % 5.5 Eosinophils % 0.8 Basophils % 0.6 - Medications Given in the ED: ED Medications Discontinued Medications Generic Name Dose Route Start Last Admin Trade Name Freq PRN Reason Stop Dose Admin Acetaminophen 1,000 mg 11/16/18 14:19 11/16/18 14:30 Ofirmev Injection - IVPB 11/16/18 14:20 1,000 mg ONCE ONE Administration Famotidine/Sodium Chloride 20 mg in 50 mls @ 100 mls/hr 11/16/18 14:19 14:30 Pepcid 20 Mg Premixed Ivpb - IVPB 11/16/18 14:48 100 mls/hr ONCE ONE Administration Sodium Chloride 1,000 mls @ 1,000 mls/hr 11/16/18 14:38 11/16/18 14:49 Normal Saline - IV 11/16/18 15:37 1,000 mls/hr ASDIR STA Administration Ceftriaxone Sodium 1 gm/ 100 mls @ 200 mls/hr 11/16/18 19:11 11/16/18 19:36 Dextrose IVPB 11/16/18 19:40 200 mls/hr ONCE ONE Administration Protocol Lactated Ringer's 1,000 ml 11/16/18 17:58 11/16/18 18:29 Lactated Ringers Solution IV 11/16/18 17:59 1,000 ml NOW ONE Administration Morphine Sulfate 2 mg 11/16/18 14:38 11/16/18 14:49 Morphine Injection - IVPUSH 11/16/18 14:39 2 mg ONCE ONE Administration Morphine Sulfate 4 mg 11/16/18 16:28 11/16/18 16:38 Morphine Injection - IVPUSH 11/16/18 16:29 4 mg ONCE ONE Administration Medical Decision Making - Medical Decision Making CT shows solitary dilated loop of small bowel in RLQ. No proximal dilatation, most likely post operative appearance rather than SBO. Surgery consult was placed by previous team to Dr. Rodney who will evaluate the patient. Patient was admitted to the hospitalist service for possible volvulus vs SBO Dispo: Admit *DC/Admit/Observation/Transfer Diagnosis at time of Disposition: Abdominal pain - Referrals - Patient Instructions - Post Discharge Activity
--- NOTE | 2018-11-16 20:13 | HP ---
CHIEF COMPLAINT: Abdominal Pain PCP: Dr. Prasad HISTORY OF PRESENT ILLNESS: Severe pain radiating to the pack; nothing makes it better or worse. On cipro for UTI. Found to have abdominal tenderness on examination. Afebrile and hemodynamically stable. Found to have a slight LA elevation and slightly elevated Cr over her baseline with a minor leukocytosis. CT abdomen/pelvis done and was shown to have L-ureteral stent in place with some mild L-hydro, uncomplicated diverticulitis, and a dilated loop of small bowel in the RLQ that radiology comments is most likely postoperative appearance wather than a true SBO as per the preliminary read. Dr. Rodney was consulted earlier by the ER to evaluate the patient for the bowel loop dilation. Patient had the stent inserted in the L-ureter in CT; chose to followup here. Need to get more history from the [facility] regarding prodedure. Does have a mesh in from prior hernia repair. 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 We are currently repeating the CT with PO contrast to better elucidate anatomy. Planning on aggressive fluid repletion. LA slightly up so will continue to hydrate and trend. Empiric abx per sgy and if needed after tomorrow's dose will consult ID. Appreciate the wonderful care rendered in ER and from consulting subspecialists. Recent Travel: None PAST MEDICAL HISTORY: CKD, HTN, DM, nephrolithiasis s/p L-stent Dr. Fleming PAST SURGICAL HISTORY: Recent L-ureteral stent placement Social History: Denies current EtOH, tobacco, or drug abuse Family History: Asked and noncontributory Allergies latex Allergy (Severe, Verified 11/16/18 13:55) Swelling ANAPHYLACTIC SHOCK insulin lispro [From Humalog] Allergy (Intermediate, Verified 11/16/18 13:55) Generalized rash and itching naproxen [From Naprosyn] Allergy (Verified 11/16/18 13:55) Swelling oxaprozin [From Daypro] Allergy (Verified 11/16/18 13:55) Swelling saxagliptin HCl [From Onglyza] Allergy (Verified 11/16/18 13:55) leg edema latex Allergy (Severe, Uncoded 11/16/18 13:55) ANAPHYLACTIC SHOCK Mushrooms Allergy (Uncoded 11/16/18 13:55) naproxen Allergy (Uncoded 11/16/18 13:55) HOME MEDICATIONS: Home Medications Medication Instructions Recorded Cholecalciferol (Vitamin D3) 50 mcg PO DAILY 10/19/16 [Vitamin D3] Insulin (Levemir) [Levemir Vial] 55 unit SQ ASDIR 10/19/16 Allopurinol [Zyloprim -] 100 mg PO DAILY 12/20/16 Insulin (LOG) Aspart [NovoLOG -] 7 units SQ DAILY 01/16/17 Aspirin [ASA -] 81 mg PO DAILY 03/19/18 Amlodipine Besylate 5 mg PO DAILY 11/16/18 Atorvastatin Calcium 10 mg PO DAILY 11/16/18 Chlorthalidone 25 mg PO DAILY 11/16/18 Ciprofloxacin [Cipro (Restricted 500 mg PO BID 11/16/18 To Id)] Potassium Citrate [Potassium 30 meq PO BID 11/16/18 Citrate ER] REVIEW OF SYSTEMS 10 sys ROS done and negative aside from HPI PHYSICAL EXAMINATION Vital Signs - 24 hr 11/16/18 11/16/18 13:56 18:50 Temperature 98.1 F 98.1 F Pulse Rate 69 Pulse Rate [ 68 Right] Respiratory 16 18 Rate Blood Pressure 175/80 H Blood Pressure 154/81 [Right Arm] O2 Sat by Pulse 99 96 Oximetry (%) GENERAL: Awake, alert, and fully oriented, in no acute distress. HEAD: Normal with no signs of trauma. EYES: Pupils equal, round and reactive to light, extraocular movements intact, sclera anicteric, conjunctiva clear. No lid lag. EARS, NOSE, THROAT: Ears normal, nares patent, oropharynx clear without exudates. Moist mucous membranes. NECK: Normal range of motion, supple without lymphadenopathy, JVD, or masses. LUNGS: Breath sounds equal, clear to auscultation bilaterally. No wheezes, and no crackles. No accessory muscle use. HEART: Regular rate and rhythm, normal S1 and S2 without murmur, rub or gallop. ABDOMEN: Soft, diffusely tender but not rigid, mildly distended, normoactive to reduced bowel sounds MUSCULOSKELETAL: Normal range of motion at all joints. No bony deformities or tenderness. No CVA tenderness. NEUROLOGICAL: Cranial nerves II-XII intact. Normal speech. Normal gait. PSYCHIATRIC: Cooperative. Good eye contact. Appropriate mood and affect. SKIN: Warm, dry, normal turgor, no rashes or lesions noted, normal capillary refill. Laboratory Results - last 24 hr 11/16/18 11/16/18 11/16/18 14:18 14:18 14:18 WBC RBC Hgb Hct MCV MCH MCHC RDW Plt Count MPV Absolute Neuts (auto) Neutrophils % Lymphocytes % Monocytes % Eosinophils % Basophils % Nucleated RBC % PT with INR INR PTT (Actin FS) Sodium 136 Potassium 4.1 Chloride 102 Carbon Dioxide 27 Anion Gap 8 BUN 32 H Creatinine 1.5 H Creat Clearance w eGFR 33.94 Random Glucose 265 H Lactic Acid 2.4 H* Calcium 9.1 Total Bilirubin 0.8 AST 10 L ALT 13 Alkaline Phosphatase 97 Troponin I 0.03 Total Protein 7.8 Albumin 3.4 Lipase 344 Urine Color Urine Appearance Urine pH Ur Specific [place] Urine Protein Urine Glucose (UA) Urine Ketones Urine Blood Urine Nitrite Urine Bilirubin Urine Urobilinogen Ur Leukocyte Esterase Urine WBC (Auto) Urine RBC (Auto) Urine Casts (Auto) U Epithel Cells (Auto) Urine Bacteria (Auto) 11/16/18 11/16/18 11/16/18 14:35 14:35 18:40 WBC 11.5 H RBC 4.29 Hgb 11.4 Hct 34.2 MCV 79.6 L MCH 26.6 MCHC 33.4 RDW 18.9 H Plt Count 398 D MPV 9.0 Absolute Neuts (auto) 10.0 H Neutrophils % 86.5 H D Lymphocytes % 6.6 L D Monocytes % 5.5 Eosinophils % 0.8 Basophils % 0.6 Nucleated RBC % 0 PT with INR 13.3 H INR 1.19 PTT (Actin FS) 25.8 Sodium Potassium Chloride Carbon Dioxide Anion Gap BUN Creatinine Creat Clearance w eGFR Random Glucose Lactic Acid Calcium Total Bilirubin AST ALT Alkaline Phosphatase Troponin I Total Protein Albumin Lipase Urine Color Yellow Urine Appearance Clear Urine pH 8.5 H Ur Specific [place] 1.012 Urine Protein 3+ Urine Glucose (UA) Negative Urine Ketones Negative Urine Blood 1+ Urine Nitrite Negative Urine Bilirubin Negative Urine Urobilinogen 1.0 Ur Leukocyte Esterase Negative Urine WBC (Auto) 1 Urine RBC (Auto) 41 Urine Casts (Auto) 0 U Epithel Cells (Auto) 0.3 Urine Bacteria (Auto) 2.7 ASSESSMENT/PLAN: Patient presents to the hospital for abdominal pain found to have a potential SBO with ? cecal volvulus; Dr. Rodney is aware and will see the patient. Continuing treatment for cystitis that was started as outpatient. 1) SBO vs. Cecal Volvulus -Surgery following; repeating scan with PO contrast tonight -Getting 2 doses of zosyn per sgy; should she continue to require abx will consult Dr. Morel for recs -Ultimate management per sgy; strict is and os and IVF with isotonic @125cc/hr -Pain and nausea control -Holding ASA in anticipation sgy; she took this morning's dose 2) Recent Cystitis with instrumentation (L-ureteral stent) with continued hydronephrosis -Would be helpful to compare to images in [place]; sgy spoke to stitch bonding machine tender helper uro and they are aware of patient-please refer to note for further details. -Hemodynamics stable, no LE or nitrite on UA with no WBC/epi. Would be covered by zosyn should she be completing tx. Would be helpful to have old culture data. Once rationale and records obtained from [place] would be reasonable to come up with a final stop date. 3) Elevated lactate -Likely 2/2 #1; trend. On isotonic monitoring is and os. 4) DM -Q4H BMP and SSI; can 1/2 long acting if needed but acceptable at this point. Is NPO. A1c ordered for AM. Resume home basal covrerage with SSI/mealtime if needed when she is back taking PO. 5) HTN -Hold PO meds; treat with PRN management to keep SBP <160. Plan to continue clonidine to avoid rebound HTN. 6) HLD -Hold atorva; resume when taking PO 7) CKD -Trend BMP, monitor UOP. Cr 1.5 on presentation and she is being hydrated. FENA -iso@125/hr -PRN replete; low mag was given 2g -NPO -As tolerated Full Code Visit type - Emergency Visit Emergency Visit: Yes ED Registration Date: 11/19/18 Care time: The patient presented to the Emergency Department on the above date and was hospitalized for further evaluation of their emergent condition. - New Patient This patient is new to me today: Yes Date on this admission: 12/11/18 - Critical Care Critical Care patient: Yes Total Critical Care Time (in minutes): 60 Critical Care Statement: The care of this patient involved high complexity decision making to prevent further life threatening deterioration of the patient 's condition and/or to evaluate & treat vital organ system(s) failure or risk of failure.
[2018-11-16] MEDS ORDERED: SODIUM CHLORIDE 1,000 ML IV SCH (20:15)
[2018-11-16] MEDS: MORPHINE SULFATE 2 MG/ML VIAL IVPUSH PRN (20:50)
--- NOTE | 2018-11-16 20:52 | CONSULT ---
Consult Consult Specialty:: General Surgery Referred by:: Renetta Singh Reason for Consultation:: ? SBO - History of Present Illness Chief Complaint: generalized/central abdominal pain History of Present Illness: 72yo morbidly obese F with HTN, HLD, DM, CKD, gout, on daily asa, spends part of her time in [place] and was there from June until 11/06/18, where she had left ureteral stent placed earlier this month. She returned to [place] to f/u with her own urologist when she was told she might need surgery to see "what was really wrong" and that it might not be kidney stones. Dr. Brad Fleming saw her and ordered CT for today and put her on Cipro for UTI, which she started yesterday. This morning before the CT she was not feeling well and had some pain in her central/right abdomen. She thought it was because she had taken the Cipro on an empty stomach. She went home and had some toast and later some milk, but the pain persisted, and she came back to ER. Last BM was soft and formed yesterday, though she needed mag citrate after leaving the [place] hospital with no BM for 5d, which did clean her out a couple weeks ago. She has some nausea, but has not vomited. Denies fever/chills. She has had similar pain in the past but never this severe. PMD is Dr. Prasad, and her deputy sheriff building guard is Dr. Perry. Last took her meds this morning. Surgical history is significant for open chaitanya years ago , hysterectomy, previous ureteral stenting, and abdominal wall hernia repair with mesh years ago (at [place] by surgeon). The CT from this morning was read by ruma as stent in place, mild left hydro, mildly dilated single SB loop in RLQ less likely obstructive in nature, and surgery was asked to assess. She is seen and examined in the ER, awaiting a bed upstairs, admitted to medicine. She has a friend present, and is uncomfortable with pain in her abdomen. She has gotten IV fluids, and labs are significant for lactate 2.4, wbc 11.5, BUN/Cr 34/1.5, and glucose over 250. She states the pain is 9/10 and is getting morphine, which only helps a little bit. She has her home meds with her in a bag in bottles. - History Source History Provided By: Patient, Medical Record Limitations to Obtaining History: No Limitations - Past Medical History Cardio/Vascular: Yes: HTN, Hyperlipdemia Gastrointestinal: Yes: Other (obesity) Renal/: Yes: Renal Inusuff, Renal Calculi (possible), UTI (currently being treated as), Other (h/o pyelonephritis. 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 pt not sure but does have RLQ scar) , Cholecystectomy, Hernia Repair (ventral/?umbilical with mesh years ago), Hysterectomy, Joint Replacement (bilateral knee total knee replacement), Laminectomy (Lumbar spine), Stent (left ureteral (placed early this month in [place])) - Alcohol/Substance Use Hx Alcohol Use: No History of Substance Use: reports: None - Smoking History Smoking history: Never smoked Have you smoked in the past 12 months: No - Social History History of Recent Travel: Yes ([place], [place] from June to 11/06/18) Home Medications - Allergies Allergies/Adverse Reactions: Allergies Allergy/AdvReac Type Severity Reaction Status Date / Time latex Allergy Severe Swelling Verified 11/16/18 13:55 insulin lispro [From Humalog] Allergy Intermediate Generalized Verified 13:55 rash and itching naproxen [From Naprosyn] Allergy Swelling Verified 11/16/18 13:55 oxaprozin [From Daypro] Allergy Swelling Verified 11/16/18 13:55 saxagliptin HCl Allergy leg edema Verified 11/16/18 13:55 [From Onglyza] latex Allergy Severe Uncoded 11/16/18 13:55 Mushrooms Allergy Uncoded 11/16/18 13:55 naproxen Allergy Uncoded 11/16/18 13:55 - Home Medications Home Medications: Ambulatory Orders Cholecalciferol (Vitamin D3) [Vitamin D3] 50 mcg PO DAILY 10/19/16 Insulin (Levemir) [Levemir Vial] 55 unit SQ ASDIR 10/19/16 Allopurinol [Zyloprim -] 100 mg PO DAILY 12/20/16 Insulin (LOG) Aspart [NovoLOG -] 7 units SQ DAILY 01/16/17 Aspirin [ASA -] 81 mg PO DAILY 03/19/18 Amlodipine Besylate 5 mg PO DAILY 11/16/18 Atorvastatin Calcium 10 mg PO DAILY 11/16/18 Chlorthalidone 25 mg PO DAILY 11/16/18 Ciprofloxacin [Cipro (Restricted To Id)] 500 mg PO BID 11/16/18 Potassium Citrate [Potassium Citrate ER] 30 meq PO BID 11/16/18 Family Disease History - Family Disease History Family History: Unremarkable (noncontributory) Review of Systems - Review of Systems Constitutional: denies: Chills, Fever Eyes: reports: Other (reading glasses). denies: Recent Change in Vision HENT: denies: Difficult Swallowing, Throat Pain Neck: denies: Swollen Glands, Tenderness Cardiovascular: denies: Chest Pain, Palpitations Respiratory: denies: Cough, SOB Gastrointestinal: reports: Abdominal Pain (with hpi), Nausea (with hpi). denies : Constipation (earlier in month in hospital was constipated for 5 days, took mag citrate after getting out and it cleaned her out), Diarrhea, Vomiting Genitourinary: reports: Hematuria (has had in past). denies: Burning, Dysuria Musculoskeletal: reports: Back Pain. denies: Joint Pain, Muscle Pain Integumentary: denies: Change in Color, Rash Neurological: denies: Dizziness, Headache Pain Intensity: 9 Physical Exam Vital Signs: Vital Signs Temperature 98.1 F 11/16/18 18:50 Pulse Rate 68 11/16/18 18:50 Respiratory Rate 18 11/16/18 19:59 Blood Pressure 154/81 11/16/18 18:50 O2 Sat by Pulse Oximetry (%) 97 11/16/18 19:59 Constitutional: Yes: Calm, Mild Distress (secondary to pain), Obese Eyes: Yes: Conjunctiva Clear, EOM Intact HENT: Yes: Atraumatic, Normocephalic Neck: Yes: Supple, Trachea Midline Cardiovascular: Yes: Regular Rate and Rhythm, Murmur Respiratory: Yes: Regular, CTA Bilaterally Gastrointestinal: Yes: Normal Bowel Sounds, Soft, Abdomen, Obese, Palpable Mass (right mid-abdomen, tender, mildly firm (corresponds to large, stool-filled loop of bowel on CT)), Tenderness (right abdomen more than left, central more than upper or lower, but somewhat general tenderness around mid-abdomen; no rebound/guarding) ...Rectal Exam: Yes: Hemorrhoids/External (few skin tags), Sphincter Tone Normal , Other (little soft light brown stool on glove tip, minimal reachable stool in vault) Renal/: No: CVA Tenderness - Left, CVA Tenderness - Right Musculoskeletal: No: Joint Stiffness, Joint Swelling Extremities: No: Cool, Cyanosis Edema: No Peripheral Pulses WNL: Yes Integumentary: No: Jaundice, Rash Neurological: Yes: Alert, Oriented Psychiatric: Yes: Alert, Oriented Labs: CBC, BMP 11/16/18 14:35 11/16/18 14:18 CMP Sodium 139 mmol/L (136-145) 11/16/18 21:12 Potassium 4.4 mmol/L (3.5-5.1) 11/16/18 21:12 Chloride 103 mmol/L (98-107) 11/16/18 21:12 Carbon Dioxide 27 mmol/L (21-32) 11/16/18 21:12 Anion Gap 9 MMOL/L (8-16) 11/16/18 21:12 BUN 27 mg/dL (7-18) H 11/16/18 21:12 Creatinine 1.5 mg/dL (0.55-1.3) H 11/16/18 21:12 Creat Clearance w eGFR 33.94 (>60) 11/16/18 21:12 Random Glucose 254 mg/dL (74-106) H 11/16/18 21:12 Lactic Acid 2.4 mmol/L (0.4-2.0) H* 11/16/18 14:18 Calcium 8.8 mg/dL (8.5-10.1) 11/16/18 21:12 Phosphorus 3.8 mg/dL (2.5-4.9) 11/16/18 21:12 Magnesium 1.5 mg/dL (1.8-2.4) L 11/16/18 21:12 Total Bilirubin 0.8 mg/dL (0.2-1) 11/16/18 14:18 AST 10 U/L (15-37) L 11/16/18 14:18 ALT 13 U/L (13-61) 11/16/18 14:18 Alkaline Phosphatase 97 U/L (45-117) 11/16/18 14:18 Troponin I 0.03 ng/ml (0.00-0.05) 11/16/18 14:18 Total Protein 7.8 g/dl (6.4-8.2) 11/16/18 14:18 Albumin 3.4 g/dl (3.4-5.0) 11/16/18 14:18 Lipase 344 U/L (73-393) 11/16/18 14:18 INR, PTT INR 1.19 (0.82-1.09) 11/16/18 14:35 Urine Test Results Urine Color Yellow 11/16/18 18:40 Urine Appearance Clear 11/16/18 18:40 Urine pH 8.5 (5.0-8.0) H 11/16/18 18:40 Ur Specific [place] 1.012 (1.010-1.035) 11/16/18 18:40 Urine Protein 3+ (NEGATIVE) 11/16/18 18:40 Urine Glucose (UA) Negative (NEGATIVE) 11/16/18 18:40 Urine Ketones Negative (NEGATIVE) 11/16/18 18:40 Urine Blood 1+ (NEGATIVE) 11/16/18 18:40 Urine Nitrite Negative (NEGATIVE) 11/16/18 18:40 Urine Bilirubin Negative (<2.0 mg/dL) 11/16/18 18:40 Ur Leukocyte Esterase Negative (NEGATIVE) 11/16/18 18:40 repeat lactate pending after hydration Cr same as earlier today BUN down a little repeat cbc pending as well Mg low - will replete Imaging - Results Cat Scan: Pending (repeat CT pending with oral contrast), Image Reviewed ( images personally reviewed and discussed by phone with Debby Fong/DARI Lizarraga ureteral stent in place, little fluid in pelvis, no free air, large stool- filled loop of bowel in right mid-abdomen with possible mesenteric twist - ?? 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 admitted to medicine NPO/IVF except essential meds pain meds prn GI/DVT prophylaxis will repeat CT abd/pelvis with oral contrast but no IV (renal function) for better assessment of possible cecal twist discussed with Dr. Barros will give Zosyn now to cover enteric pathogens until picture is clear, plan repeat at 0600 and ID to follow if continued then pt may require surgical intervention if volvulus is confirmed may also require mesh explantation? from abdominal wall in context of possible bowel resection pending repeat CT results, may discuss with her PMD Dr. Prasad Code(s): K56.2 - VOLVULUS (2) Generalized abdominal pain Code(s): R10.84 - GENERALIZED ABDOMINAL PAIN (3) Hypertension Assessment/Plan: holding most home meds, ok to continue clonidine for now to avoid rebound HTN Code(s): I10 - ESSENTIAL (PRIMARY) HYPERTENSION Qualifiers: Hypertension type: essential hypertension Qualified Code(s): I10 - Essential (primary) hypertension (4) Diabetes mellitus type 2 in obese Assessment/Plan: maintain glucose control consider check A1C replete magnesium generous IV hydration Code(s): E11.69 - TYPE 2 DIABETES MELLITUS WITH OTHER SPECIFIED COMPLICATION; E66.9 - OBESITY, UNSPECIFIED (5) S/P ureteral stent placement Assessment/Plan: discussed with Dr. Bolivar covering for Dr. Fleming - as long as ureteral stent is in position and she is voiding, he has no acute urologic concerns recommended continuing/completing Cipro course if she requires broader spectrum abx, may not need to they can see her tomorrow Code(s): Z96.0 - PRESENCE OF UROGENITAL IMPLANTS (6) Gout Code(s): M10.9 - GOUT, UNSPECIFIED Qualifiers: Gout site: unspecified site Gout etiology: unspecified cause Chronicity: unspecified Qualified Code(s): M10.9 - Gout, unspecified (7) CKD (chronic kidney disease) stage 3, GFR 30-59 ml/min Code(s): N18.3 - CHRONIC KIDNEY DISEASE, STAGE 3 (MODERATE)
[2018-11-16] MEDS ORDERED: PIPERACILLIN/TAZOB 3.375 GM 3.375 GM in DEXTROSE 5%-WATER - 50 ML IVPB ONE (21:31)
[2018-11-16 21:38] LABS: ANION GAP 9 MMOL/L (8-16); BLOOD UREA NITROGEN 27 mg/dL (7-18); CALCIUM 8.8 mg/dL (8.5-10.1); CHLORIDE 103 mmol/L (98-107); CO2 27 mmol/L (21-32); CREATININE 1.5 mg/dL (0.55-1.3); GLUCOSE,RANDOM 254 mg/dL (74-106); MAGNESIUM 1.5 mg/dL (1.8-2.4); PHOSPHOROUS 3.8 mg/dL (2.5-4.9); POTASSIUM 4.4 mmol/L (3.5-5.1); SODIUM 139 mmol/L (136-145)
[2018-11-16 21:40] LABS: BASO % 0.8 % (0-2.0); EOS % 0.9 % (0-4.5); HEMATOCRIT 27.7 % (32.4-45.2); HEMOGLOBIN 9.3 GM/dL (10.7-15.3); LYMPH % 14.2 % (8-40); MCH 26.9 pg (25.7-33.7); MCHC 33.6 g/dl (32.0-36.0); MEAN CELL VOLUME 80.2 fl (80-96); MEAN PLT VOLUME 8.9 fl (7.5-11.1); MONO % 6.7 % (3.8-10.2); NEUT % 77.4 % (42.8-82.8); PLATELET COUNT 305 K/MM3 (134-434); RBC 3.46 M/mm3 (3.60-5.2); RDW 19.1 % (11.6-15.6); WHITE BLOOD COUNT 8.2 K/mm3 (4.0-10.0)
[2018-11-16] MEDS ORDERED: INSULIN SLIDING SCALE (NOVOLOG) 1 VIAL SQ SCH (22:00)
[2018-11-16] MEDS ORDERED: PATIENT'S OWN MEDICATION (NON-FORMULARY) (Clonidine Hcl [Catapres] 0.2 MG) PO SCH (22:00)
[2018-11-16] MEDS ORDERED: HEPARIN NA (PORCINE) 5,000 UNITS/ML 1ML VIAL SQ SCH (22:00)
[2018-11-16] MEDS: SODIUM CHLORIDE 1,000 ML IV SCH (22:04)
[2018-11-16] MEDS ORDERED: MAGNESIUM SULF 50% (8.12 MEQ/2 ML-1 GM VIAL) IVPB ONE (22:09)
[2018-11-16] MEDS ORDERED: cloNIDine HCL 0.1 MG TABLET ONE (22:16)
[2018-11-16] MEDS ORDERED: HEPARIN NA (PORCINE) 5,000 UNITS/ML 1ML VIAL ONE (22:16)
[2018-11-16] MEDS ORDERED: PIPERACILLIN/TAZOB 3.375 GM 3.375 GM/50 ML BAG IVPB ONE (22:16)
[2018-11-16] MEDS ORDERED: INSULIN (NOVOLOG) ASPART 100 UNITS/ML 10ML VIAL ONE (22:20)
[2018-11-16] MEDS: cloNIDine HCL 0.1 MG TABLET PO SCH (22:27)
[2018-11-16] MEDS: INSULIN SLIDING SCALE (NOVOLOG) 1 VIAL SQ SCH (22:28)
[2018-11-16] MEDS: HEPARIN NA (PORCINE) 5,000 UNITS/ML 1ML VIAL SQ SCH (22:28)
[2018-11-16] MEDS: ONDANSETRON 4 MG/2 ML VIAL IVPUSH PRN (22:41)
[2018-11-17] MEDS ORDERED: MAGNESIUM 1GM/D5W - 2 GM/200 ML IVPB IVPB ONE (00:09)
[2018-11-17] MEDS ORDERED: ONDANSETRON 4 MG/2 ML VIAL ONE (00:09)
[2018-11-17] MEDS: ONDANSETRON 4 MG/2 ML VIAL IVPUSH PRN (00:15)
[2018-11-17] MEDS ORDERED: MORPHINE SULFATE 2 MG/ML VIAL ONE (03:35)
[2018-11-17] MEDS: MORPHINE SULFATE 2 MG/ML VIAL IVPUSH PRN (03:47)
[2018-11-17] MEDS: cloNIDine HCL 0.1 MG TABLET PO SCH ×3 (05:28→21:59)
[2018-11-17] MEDS: HEPARIN NA (PORCINE) 5,000 UNITS/ML 1ML VIAL SQ SCH ×3 (05:28→21:59)
[2018-11-17] MEDS ORDERED: PIPERACILLIN/TAZOB 3.375 GM 3.375 GM in DEXTROSE 5%-WATER - 50 ML IVPB ONE (06:00)
[2018-11-17] MEDS: INSULIN SLIDING SCALE (NOVOLOG) 1 VIAL SQ SCH ×4 (06:57→22:00)
[2018-11-17] MEDS ORDERED: DEXTROSE 5%-WATER - 50 ML IVPB ONE ×2 (06:58→18:10)
[2018-11-17] MEDS ORDERED: PIPERACILLIN/TAZOBACTAM 3.375 GM VIAL IVPB ONE ×2 (06:58→18:10)
[2018-11-17 07:50] LABS: EOS % 0.5 % (0-4.5); HEMATOCRIT 28.4 % (32.4-45.2); HEMOGLOBIN 9.5 GM/dL (10.7-15.3); MCH 26.6 pg (25.7-33.7); MCHC 33.5 g/dl (32.0-36.0); MEAN CELL VOLUME 79.5 fl (80-96); MEAN PLT VOLUME 9.4 fl (7.5-11.1); MONO % 8.4 % (3.8-10.2); NEUT % 75.1 % (42.8-82.8); PLATELET COUNT 283 K/MM3 (134-434); RBC 3.57 M/mm3 (3.60-5.2); WHITE BLOOD COUNT 8.5 K/mm3 (4.0-10.0)
[2018-11-17 08:28] LABS: ALBUMIN 2.6 g/dl (3.4-5.0); ALK PHOS 81 U/L (45-117); ANION GAP 10 MMOL/L (8-16); BILIRUBIN,TOTAL 1.1 mg/dL (0.2-1); BLOOD UREA NITROGEN 25 mg/dL (7-18); CALCIUM 8.1 mg/dL (8.5-10.1); CHLORIDE 104 mmol/L (98-107); CO2 24 mmol/L (21-32); CREATININE 1.3 mg/dL (0.55-1.3); MAGNESIUM 2.5 mg/dL (1.8-2.4); POTASSIUM 4.3 mmol/L (3.5-5.1); SGOT/AST 9 U/L (15-37); SGPT/ALT 10 U/L (13-61); SODIUM 138 mmol/L (136-145); TOT PROT 6.2 g/dl (6.4-8.2)
--- NOTE | 2018-11-17 08:44 | PN ---
Progress Note, Physician Chief Complaint: Abdominal pain SBP vs Cecal Volvulus History of Present Illness: Previous notes and events reviewed awake and alert NAD states abdominal pain is improving No BM since 09/17/18 per patient denies chest pain, SOB - Current Medication List Current Medications: Active Medications Acetaminophen (Ofirmev Injection -) 1,000 mg IVPB Q6H PRN PRN Reason: PAIN LEVEL 6-10 Clonidine (Catapres -) 0.2 mg PO TID [facility] Last Admin: 11/17/18 05:28 Dose: 0.2 mg Heparin Sodium (Porcine) (Heparin -) 5,000 unit SQ TID [facility] Last Admin: 11/17/18 05:28 Dose: 5,000 unit Sodium Chloride (Normal Saline -) 1,000 mls @ 125 mls/hr IV ASDIR [facility] Last Admin: 11/16/18 22:04 Dose: 125 mls/hr Insulin Aspart (Novolog Vial Sliding Scale -) 1 vial SQ [facility]; Protocol Last Admin: 11/17/18 06:57 Dose: 8 units Morphine Sulfate (Morphine Sulfate) 2 mg IVPUSH Q4H PRN PRN Reason: PAIN LEVEL 7 - 10 Last Admin: 11/17/18 03:47 Dose: 2 mg Ondansetron HCl (Zofran Injection) 4 mg IVPUSH Q4H PRN PRN Reason: NAUSEA AND/OR VOMITING Last Admin: 11/17/18 00:15 Dose: 4 mg - Objective Vital Signs: Vital Signs Temperature 99.5 F 11/17/18 04:02 Pulse Rate 92 H 11/17/18 04:02 Respiratory Rate 20 11/17/18 04:14 Blood Pressure 120/68 11/17/18 04:02 O2 Sat by Pulse Oximetry (%) 97 11/17/18 04:14 Constitutional: Yes: No Distress Eyes: Yes: Conjunctiva Clear HENT: Yes: Atraumatic Cardiovascular: Yes: Regular Rate and Rhythm Respiratory: Yes: Regular, CTA Bilaterally Gastrointestinal: Yes: Normal Bowel Sounds, Soft, Tenderness (diffuse) Musculoskeletal: Yes: Muscle Weakness Extremities: Yes: WNL Edema: No Neurological: Yes: Alert, Oriented Psychiatric: Yes: Alert, Oriented Labs: CBC, BMP 11/17/18 06:40 11/17/18 06:40 INR, PTT INR 1.19 (0.82-1.09) 11/16/18 14:35 Problem List - Problems (1) Abdominal pain Assessment/Plan: -r/o SBO vs cecal volvulus -Abdomen and Pelvic CT scan with contrast result pending -NPO -IV hydration -surgery on board -GI consult placed -pain management -zofran prn for nausea Code(s): R10.9 - UNSPECIFIED ABDOMINAL PAIN Qualifiers: Abdominal location: unspecified location Qualified Code(s): R10.9 - Unspecified abdominal pain (2) CKD (chronic kidney disease) stage 3, GFR 30-59 ml/min Assessment/Plan: -BUN/Cr 25/1.3 -monitor renal function daily Code(s): N18.3 - CHRONIC KIDNEY DISEASE, STAGE 3 (MODERATE) (3) Diabetes mellitus type 2 in obese Assessment/Plan: -BGM ACHS -ISS -HgA1c Code(s): E11.69 - TYPE 2 DIABETES MELLITUS WITH OTHER SPECIFIED COMPLICATION; E66.9 - OBESITY, UNSPECIFIED (4) Hypertension Assessment/Plan: -continue clonidine Code(s): I10 - ESSENTIAL (PRIMARY) HYPERTENSION Qualifiers: Hypertension type: essential hypertension Qualified Code(s): I10 - Essential (primary) hypertension (5) Hydronephrosis, left Assessment/Plan: -L ureteral stent, previously followed by urologist in [place] -will consult uro if voiding problems develop Code(s): N13.30 - UNSPECIFIED HYDRONEPHROSIS Assessment/Plan see problem list dvt ppx
[2018-11-17 09:51] LABS: GLUCOSE,RANDOM 317 mg/dL (74-106)
[2018-11-17] MEDS ORDERED: ALLOPURINOL 100 MG TABLET (FP) PO SCH (10:00)
[2018-11-17] MEDS ORDERED: PATIENT'S OWN MEDICATION (NON-FORMULARY) (Ferrous Sulfate [Ferrous Sulfate] 325 MG) PO SCH (10:00)
[2018-11-17] MEDS ORDERED: ASPIRIN 81 MG CHEWABLE TABLETS PO SCH (10:00)
--- NOTE | 2018-11-17 11:23 | PN ---
Progress Note, Physician History of Present Illness: Obese, diabetic patient with abdominal pain, nausea, and imaging suspicious for intraabdominal/bowel pathology. Differential included: cecal volvulus (ruled out, cecum is clearly visible separate from affected bowel loop on subsequent imaging), small bowel obstructive process (not highly likely, as oral contrast gets into and out of dilated, fecalized distal bowel loop), stasis in ?Meckel's or otherwise dilated portion of distal small bowel ( fecalization and enlargement of distal SB loop/area which is visible but not as prominent on previous years' CT scans), enteritis (there is a segment of bowel leading into or out of the enlarged loop which appears thickened though contrast passes through it), hernia (internal or abdominal wall - there does appear to be a defect in the right lateral abdominal wall on review of images, though no clear extrusion of intraabdominal content, more likely chronic bulging/weakness), or chronic partial obstructive process with impingement of bowel loops on each other, leading to dilation and accumulation of content in one particular loop, which has been present in similar location over at least 4-[address] scans. Last upper and lower endoscopy was by Dr. Cedillo last February. AXR repeated this morning after oral contrast given last night for CT, showing some contrast now definitely in right and transverse colon, though still some visible in distal small bowel as well. Patient seen and examined in bed. She reports no current pain, and much less overall since her last dose of pain medication, which was 2mg of morphine just before 4am. She has not passed any stool yet, but has no nausea anymore either. She does have mild discomfort with deep palpation of the affected right/mid abdominal area, but nothing compared to last night. She got Zosyn two doses total around 10pm and 6am. Lactate this morning is down to 1.2, wbc is normal, labs appear better hydrated. Cr is down to 1.3. Glucose still elevated and A1C 8.9. IV fluids running at 100ml/hr. She states she feels better this morning overall. Discussed with Dr. Prasad and Dr. Reaves on floor, who will also see her. - Current Medication List Current Medications: Active Medications Acetaminophen (Ofirmev Injection -) 1,000 mg IVPB Q6H PRN PRN Reason: PAIN LEVEL 6-10 Clonidine (Catapres -) 0.2 mg PO TID [facility] Last Admin: 11/17/18 05:28 Dose: 0.2 mg Heparin Sodium (Porcine) (Heparin -) 5,000 unit SQ TID [facility] Last Admin: 11/17/18 05:28 Dose: 5,000 unit Sodium Chloride (Normal Saline -) 1,000 mls @ 125 mls/hr IV ASDIR [facility] Last Admin: 11/16/18 22:04 Dose: 125 mls/hr Insulin Aspart (Novolog Vial Sliding Scale -) 1 vial SQ [facility]; Protocol Last Admin: 11/17/18 06:57 Dose: 8 units Morphine Sulfate (Morphine Sulfate) 2 mg IVPUSH Q4H PRN PRN Reason: PAIN LEVEL 7 - 10 Last Admin: 11/17/18 03:47 Dose: 2 mg Ondansetron HCl (Zofran Injection) 4 mg IVPUSH Q4H PRN PRN Reason: NAUSEA AND/OR VOMITING Last Admin: 11/17/18 00:15 Dose: 4 mg - Objective Vital Signs: Vital Signs Temperature 99.5 F 11/17/18 04:02 Pulse Rate 92 H 11/17/18 04:02 Respiratory Rate 20 11/17/18 04:14 Blood Pressure 120/68 11/17/18 04:02 O2 Sat by Pulse Oximetry (%) 97 11/17/18 04:14 Constitutional: Yes: No Distress, Calm, Obese Eyes: Yes: Conjunctiva Clear, EOM Intact HENT: Yes: Atraumatic, Normocephalic Gastrointestinal: Yes: Normal Bowel Sounds, Soft, Abdomen, Obese, Hernia (soft bulging appreciated at right lateral abdomen, bowel loops easily moved/ manipulated in area without tenderness, no signs of incarceration, defect likely at least moderate in size), Other (well-healed long right subcostal scar , infraumbilical transverse scar, RLQ scar, Pfannenstiel scar). No: Palpable Mass (not an isolated mass palpable, but can feel multiple bowel loops with some prominence in right mid-abdomen where area full of stool is known to be located), Tenderness (minimal over right mid abdomen with palpation and manipulation of underlying bowels, able to feel and hear gas and fluid moving in intestines with repeated manipulations), Tenderness, Rebound, Vomiting Extremities: No: Cool, Cyanosis Integumentary: No: Jaundice, Rash Neurological: Yes: Alert, Oriented Labs: CBC, BMP 11/17/18 06:40 11/17/18 06:40 CMP Sodium 138 mmol/L (136-145) 11/17/18 06:40 Potassium 4.3 mmol/L (3.5-5.1) 11/17/18 06:40 Chloride 104 mmol/L (98-107) 11/17/18 06:40 Carbon Dioxide 24 mmol/L (21-32) 11/17/18 06:40 Anion Gap 10 MMOL/L (8-16) 11/17/18 06:40 BUN 25 mg/dL (7-18) H 11/17/18 06:40 Creatinine 1.3 mg/dL (0.55-1.3) 11/17/18 06:40 Creat Clearance w eGFR 40.04 (>60) 11/17/18 06:40 POC Glucometer 333 UNITS (80-120) 11/17/18 06:55 Random Glucose 317 mg/dL (74-106) H* 11/17/18 06:40 Hemoglobin A1c % 8.9 % (4.2-6.3) H 11/17/18 06:40 Lactic Acid 1.2 mmol/L (0.4-2.0) 11/17/18 06:40 Calcium 8.1 mg/dL (8.5-10.1) L 11/17/18 06:40 Phosphorus 3.8 mg/dL (2.5-4.9) 11/16/18 21:12 Magnesium 2.5 mg/dL (1.8-2.4) H 11/17/18 06:40 Total Bilirubin 1.1 mg/dL (0.2-1) H 11/17/18 06:40 AST 9 U/L (15-37) L 11/17/18 06:40 ALT 10 U/L (13-61) L 11/17/18 06:40 Alkaline Phosphatase 81 U/L (45-117) 11/17/18 06:40 Troponin I 0.03 ng/ml (0.00-0.05) 11/16/18 14:18 Total Protein 6.2 g/dl (6.4-8.2) L 11/17/18 06:40 Albumin 2.6 g/dl (3.4-5.0) L 11/17/18 06:40 Lipase 344 U/L (73-393) 11/16/18 14:18 Urine Test Results Urine Color Yellow 11/16/18 18:40 Urine Appearance Clear 11/16/18 18:40 Urine pH 8.5 (5.0-8.0) H 11/16/18 18:40 Ur Specific [place] 1.012 (1.010-1.035) 11/16/18 18:40 Urine Protein 3+ (NEGATIVE) 11/16/18 18:40 Urine Glucose (UA) Negative (NEGATIVE) 11/16/18 18:40 Urine Ketones Negative (NEGATIVE) 11/16/18 18:40 Urine Blood 1+ (NEGATIVE) 11/16/18 18:40 Urine Nitrite Negative (NEGATIVE) 11/16/18 18:40 Urine Bilirubin Negative (<2.0 mg/dL) 11/16/18 18:40 Ur Leukocyte Esterase Negative (NEGATIVE) 11/16/18 18:40 - ....Imaging X-ray: Report Reviewed, Image Reviewed (images reviewed and discussed with Dr. Fong of radiology - contrast still present in some distal small bowel, but also in right and transverse colon) Cat Scan: Image Reviewed (images also reviewed from 12/11, 11/08, 07/09 in comparison to current CTs and discussed with Dr. 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 Reaves GI recommending Meckel's scan anticipate diarrhea as enteral contrast works its way out - would keep NPO except meds for now until GI tract is empty and no potential further interventions are being considered will follow up Thank you for the opportunity to participate in the care of this patient. Code(s): R10.84 - GENERALIZED ABDOMINAL PAIN (2) Hypertension Assessment/Plan: holding most home meds, continuing clonidine Code(s): I10 - ESSENTIAL (PRIMARY) HYPERTENSION Qualifiers: Hypertension type: essential hypertension Qualified Code(s): I10 - Essential (primary) hypertension (3) Diabetes mellitus type 2 in obese Assessment/Plan: maintain glucose control A1C up and historically so generous IV hydration Code(s): E11.69 - TYPE 2 DIABETES MELLITUS WITH OTHER SPECIFIED COMPLICATION; E66.9 - OBESITY, UNSPECIFIED (4) S/P ureteral stent placement Assessment/Plan: uro to be consulted Code(s): Z96.0 - PRESENCE OF UROGENITAL IMPLANTS (5) Gout Code(s): M10.9 - GOUT, UNSPECIFIED Qualifiers: Gout site: toe Gout etiology: unspecified cause Chronicity: unspecified Laterality: unspecified laterality Qualified Code(s): M10.9 - Gout, unspecified (6) CKD (chronic kidney disease) stage 3, GFR 30-59 ml/min Code(s): N18.3 - CHRONIC KIDNEY DISEASE, STAGE 3 (MODERATE)
--- NOTE | 2018-11-17 11:59 | CON.PULM ---
Consult Consult Specialty:: PULMONARY Referred by:: AGUILAR Reason for Consultation:: SOB - History of Present Illness Chief Complaint: ABD PAIN/CONSTIPATION History of Present Illness: Pt is a 72yo F with PMH of DM, HTN, Hernia repair with mesh, Cholecystectomy, Kidney Stones presenting to ED with complaints of sudden onset epigastric pain that started at around 10 this AM on day of admission. Pt states the pain is 10/ 10, is sharp, radiates to the back, associated with nausea. She has had pain like this before but many years ago. She recently had stents placed for a L kidney stone while in [place] and is recently placed on Cipro for a presumed UTI. She denies fever, chills, nausea and vomiting . Last BM was yesterday and was non bloody and not tarry. She ate "a little bit" of food earlier today at around 11am. She has been chronically constipated and while in [place] did not have a BM for 5 days. - History Source History Provided By: Patient, Medical Record Limitations to Obtaining History: No Limitations - Past Medical History DIRECTOR OF PRODUCT DEVELOPMENT: No: Alzheimer's Cardio/Vascular: Yes: HTN, Hyperlipdemia Gastrointestinal: Yes: Constipation, Other (obesity) Hepatobiliary: No: Cirrhosis Renal/: Yes: Renal Inusuff, Renal Calculi (possible), UTI (currently being treated as), Other (h/o pyelonephritis. 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 pt not sure but does have RLQ scar) , Cholecystectomy, Hernia Repair (ventral/?umbilical with mesh years ago), Hysterectomy, Joint Replacement (bilateral knee total knee replacement), Laminectomy (Lumbar spine), Stent (left ureteral (placed early this month in [place])) - Alcohol/Substance Use Hx Alcohol Use: No History of Substance Use: reports: None - Smoking History Smoking history: Never smoked Have you smoked in the past 12 months: No Aproximately how many cigarettes per day: 0 - Social History History of Recent Travel: Yes ([place], [place] from June to 11/06/18) Home Medications - Allergies Allergies/Adverse Reactions: Allergies Allergy/AdvReac Type Severity Reaction Status Date / Time latex Allergy Severe Swelling Verified 11/16/18 13:55 insulin lispro [From Humalog] Allergy Intermediate Generalized Verified 13:55 rash and itching naproxen [From Naprosyn] Allergy Swelling Verified 11/16/18 13:55 oxaprozin [From Daypro] Allergy Swelling Verified 11/16/18 13:55 saxagliptin HCl Allergy leg edema Verified 11/16/18 13:55 [From Onglyza] latex Allergy Severe Uncoded 11/16/18 13:55 Mushrooms Allergy Uncoded 11/16/18 13:55 naproxen Allergy Uncoded 11/16/18 13:55 - Home Medications Home Medications: Ambulatory Orders Cholecalciferol (Vitamin D3) [Vitamin D3] 50 mcg PO DAILY 10/19/16 Insulin (Levemir) [Levemir Vial] 55 unit SQ ASDIR 10/19/16 Allopurinol [Zyloprim -] 100 mg PO DAILY 12/20/16 Insulin (LOG) Aspart [NovoLOG -] 7 units SQ DAILY 01/16/17 Aspirin [ASA -] 81 mg PO DAILY 03/19/18 Amlodipine Besylate 5 mg PO DAILY 11/16/18 Atorvastatin Calcium 10 mg PO DAILY 11/16/18 Chlorthalidone 25 mg PO DAILY 11/16/18 Ciprofloxacin [Cipro (Restricted To Id)] 500 mg PO BID 11/16/18 Potassium Citrate [Potassium Citrate ER] 30 meq PO BID 11/16/18 Family Disease History - Family Disease History Family History: Unremarkable Review of Systems - Review of Systems Constitutional: reports: Loss of Appetite. denies: Fever Eyes: denies: Blurred Vision HENT: denies: Difficult Swallowing Neck: denies: Decreased ROM Cardiovascular: denies: Chest Pain Respiratory: reports: Cough Gastrointestinal: reports: Abdominal Pain, Bloating, Constipation. denies: Diarrhea, Rectal Bleeding, Vomiting Genitourinary: reports: No Symptoms Breasts: reports: No Symptoms Reported Musculoskeletal: reports: No Symptoms Integumentary: reports: No Symptoms Physical Exam Vital Sings: Vital Signs Temperature 97.9 F 11/17/18 08:00 Pulse Rate 101 H 11/17/18 08:00 Respiratory Rate 20 11/17/18 08:00 Blood Pressure 126/82 11/17/18 08:00 O2 Sat by Pulse Oximetry (%) 97 11/17/18 04:14 Constitutional: Yes: Anxious Eyes: Yes: EOM Intact HENT: Yes: Normocephalic Neck: Yes: Trachea Midline Cardiovascular: Yes: Regular Rate and Rhythm Respiratory: Yes: CTA Bilaterally Gastrointestinal: Yes: Abdomen, Obese, Distention, Hyperactive Bowel Sounds, Tenderness, Other (well healed abd incision sites from previous surgery). No: Tenderness, Rebound Neurological: Yes: Alert Labs: CBC, BMP 11/17/18 06:40 11/17/18 06:40 reviewed rest Imaging - Results Chest X-ray: Report Reviewed, Image Reviewed X-ray: Report Reviewed, Image Reviewed Cat Scan: Report Reviewed, Image Reviewed Problem List - Problems (1) Distended abdomen Code(s): R14.0 - ABDOMINAL DISTENSION (GASEOUS) (2) Abdominal pain Code(s): R10.9 - UNSPECIFIED ABDOMINAL PAIN Qualifiers: Abdominal location: unspecified location Qualified Code(s): R10.9 - Unspecified abdominal pain (3) CKD (chronic kidney disease) stage 3, GFR 30-59 ml/min Code(s): N18.3 - CHRONIC KIDNEY DISEASE, STAGE 3 (MODERATE) (4) Diabetes mellitus type 2 in obese Code(s): E11.69 - TYPE 2 DIABETES MELLITUS WITH OTHER SPECIFIED COMPLICATION; E66.9 - OBESITY, UNSPECIFIED (5) Hypertension Code(s): I10 - ESSENTIAL (PRIMARY) HYPERTENSION Qualifiers: Hypertension type: essential hypertension Qualified Code(s): I10 - Essential (primary) hypertension (6) S/P ureteral stent placement Code(s): Z96.0 - PRESENCE OF UROGENITAL IMPLANTS (7) Hydronephrosis, left Code(s): N13.30 - UNSPECIFIED HYDRONEPHROSIS Assessment/Plan Distended large loop of bowel with significant amount of stool causing pain and abd distention. Previous abd surgeries with h/o of mesh placement make definitive diagnosis difficult. GI and general surgery are consulted. Patient will be kept NPO, empiric antibiotics, IV fluids as per primary team. Further comments to follow regarding treatment plan. Akila GAMA MD
--- NOTE | 2018-11-17 12:06 | CON.GI ---
Consult Consult Specialty:: Gastroenterology Referred by:: Karley Olson NP Reason for Consultation:: Abdominal pain - History of Present Illness Chief Complaint: lower abdominal pain History of Present Illness: 72F developed lower abdominal pain that became generalized and led to dry heaving. She has been constipated and straining to defecate. The pain was severe last night but has now resolved. She had a left ureteral stent placed in early October in [place] for stone disease and a possible stricture. She had a spiral CT yesterday ordered by Dr Nelly Fleming that revealed a confluence of bowel loops in the RLQ that initially raised the question of a cecal volvulus. After comparing it to previous CT scan it now appears to reflect loops of small bowel that have previously been evident. This time however she has adjacent small bowel loops with thickened and presumably inflammed or ischemic bowel. The CT contrast does pass through all of these bowel loops. Pneumobilia is also noted but dates back to the [address] comments on surgical clips near the cecum and no definitive appendix. he had an EGD and a colonoscopy with Dr Cedillo in 03/13 that revealed sigmoid diverticulosis and a normal EGD. Mavis abdominal surgical history includes an open cholecystectomy at [facility]. Several months later she presented with cholangitis as was transferred to Dr Alexander in [facility] who appears to have done a common bile duct exploration an stone extraction ( she had a drain site scar in right periumbilcal area that may have been the T tube site). She had a MATTHEW ( not sure whether a BSO) for fibroids and had an anterior abdominal wall hernia repair with mesh at [facility]. She has a RLQ incision but cannot recall why and cannot recall having had an appendectomy - History Source History Provided By: Patient Limitations to Obtaining History: No Limitations - Past Medical History Cardio/Vascular: Yes: HTN, Hyperlipdemia Gastrointestinal: Yes: Diverticulosis, Other Hepatobiliary: Yes: Cholelithiasis, Choledocholithiasis (p bile duct surgery) Renal/: Yes: Renal Inusuff, Renal Calculi (possible), UTI (currently being treated as), Other (h/o pyelonephritis. 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) ...: No Musculoskeletal: Yes: Chronic low back pain (s/p low back surgery/disc issues in past) Rheumatology: Yes: Gout Endocrine: Yes: Diabetes Mellitus, Other (adrenal adenoma) - Past Surgical History Past Surgical History: Yes: Cholecystectomy, Colonoscopy, Hernia Repair (ventral /?umbilical with mesh years ago), Hysterectomy, Joint Replacement (bilateral knee total knee replacement), Laminectomy (Lumbar spine), Stent (left ureteral ( placed early this month in [place])), Upper Endoscopy - Alcohol/Substance Use Hx Alcohol Use: No History of Substance Use: reports: None - Smoking History Smoking history: Never smoked Have you smoked in the past 12 months: No Aproximately how many cigarettes per day: 0 - Social History Usual Living Arrangement: Alone ADL: Independent 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[employer], 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 Place of : Other ([place]) History of Recent Travel: Yes ([place], [place] from June to 11/06/18) Home Medications - Allergies Allergies/Adverse Reactions: Allergies Allergy/AdvReac Type Severity Reaction Status Date / Time latex Allergy Severe Swelling Verified 11/16/18 13:55 insulin lispro [From Humalog] Allergy Intermediate Generalized Verified 13:55 rash and itching naproxen [From Naprosyn] Allergy Swelling Verified 11/16/18 13:55 oxaprozin [From Daypro] Allergy Swelling Verified 11/16/18 13:55 saxagliptin HCl Allergy leg edema Verified 11/16/18 13:55 [From Onglyza] latex Allergy Severe Uncoded 11/16/18 13:55 Mushrooms Allergy Uncoded 11/16/18 13:55 naproxen Allergy Uncoded 11/16/18 13:55 - Home Medications Home Medications: Ambulatory Orders Cholecalciferol (Vitamin D3) [Vitamin D3] 50 mcg PO DAILY 10/19/16 Insulin (Levemir) [Levemir Vial] 55 unit SQ ASDIR 10/19/16 Allopurinol [Zyloprim -] 100 mg PO DAILY 12/20/16 Insulin (LOG) Aspart [NovoLOG -] 7 units SQ DAILY 01/16/17 Aspirin [ASA -] 81 mg PO DAILY 03/19/18 Amlodipine Besylate 5 mg PO DAILY 11/16/18 Atorvastatin Calcium 10 mg PO DAILY 11/16/18 Chlorthalidone 25 mg PO DAILY 11/16/18 Ciprofloxacin [Cipro (Restricted To Id)] 500 mg PO BID 11/16/18 Potassium Citrate [Potassium Citrate ER] 30 meq PO BID 11/16/18 Family Disease History - Family Disease History Family Disease History: Other: Father ( 84), Mother (lived to 96) Other Family History: NO IBD or cancer, Pat aunt had DM Review of Systems - Review of Systems Constitutional: reports: Chills Eyes: reports: No Symptoms HENT: reports: No Symptoms Cardiovascular: reports: No Symptoms Respiratory: reports: No Symptoms Gastrointestinal: reports: Abdominal Pain, Constipation, Vomiting Genitourinary: reports: Other (left stenting for colic 3 weeks ago) Musculoskeletal: reports: Back Pain, Joint Pain Physical Exam-GI Vital Signs: Vital Signs Temperature 97.9 F 11/17/18 08:00 Pulse Rate 101 H 11/17/18 08:00 Respiratory Rate 20 11/17/18 08:00 Blood Pressure 126/82 11/17/18 08:00 O2 Sat by Pulse Oximetry (%) 97 11/17/18 04:14 CBC,CMP WBC 8.5 K/mm3 (4.0-10.0) 11/17/18 06:40 RBC 3.57 M/mm3 (3.60-5.2) L 11/17/18 06:40 Hgb 9.5 GM/dL (10.7-15.3) L 11/17/18 06:40 Hct 28.4 % (32.4-45.2) L 11/17/18 06:40 MCV 79.5 fl (80-96) L 11/17/18 06:40 MCH 26.6 pg (25.7-33.7) 11/17/18 06:40 MCHC 33.5 g/dl (32.0-36.0) 11/17/18 06:40 RDW 19.0 % (11.6-15.6) H 11/17/18 06:40 Plt Count 283 K/MM3 (134-434) 11/17/18 06:40 MPV 9.4 fl (7.5-11.1) 11/17/18 06:40 Absolute Neuts (auto) 6.4 K/mm3 (1.5-8.0) 11/17/18 06:40 Neutrophils % 75.1 % (42.8-82.8) 11/17/18 06:40 Lymphocytes % 15.0 % (8-40) 11/17/18 06:40 Monocytes % 8.4 % (3.8-10.2) 11/17/18 06:40 Eosinophils % 0.5 % (0-4.5) 11/17/18 06:40 Basophils % 1.0 % (0-2.0) 11/17/18 06:40 Nucleated RBC % 0 % (0-0) 11/17/18 06:40 Sodium 138 mmol/L (136-145) 11/17/18 06:40 Potassium 4.3 mmol/L (3.5-5.1) 11/17/18 06:40 Chloride 104 mmol/L (98-107) 11/17/18 06:40 Carbon Dioxide 24 mmol/L (21-32) 11/17/18 06:40 Anion Gap 10 MMOL/L (8-16) 11/17/18 06:40 BUN 25 mg/dL (7-18) H 11/17/18 06:40 Creatinine 1.3 mg/dL (0.55-1.3) 11/17/18 06:40 Creat Clearance w eGFR 40.04 (>60) 11/17/18 06:40 POC Glucometer 333 UNITS (80-120) 11/17/18 06:55 Random Glucose 317 mg/dL (74-106) H* 11/17/18 06:40 Hemoglobin A1c % 8.9 % (4.2-6.3) H 11/17/18 06:40 Lactic Acid 1.2 mmol/L (0.4-2.0) 11/17/18 06:40 Calcium 8.1 mg/dL (8.5-10.1) L 11/17/18 06:40 Phosphorus 3.8 mg/dL (2.5-4.9) 11/16/18 21:12 Magnesium 2.5 mg/dL (1.8-2.4) H 11/17/18 06:40 Total Bilirubin 1.1 mg/dL (0.2-1) H 11/17/18 06:40 AST 9 U/L (15-37) L 11/17/18 06:40 ALT 10 U/L (13-61) L 11/17/18 06:40 Alkaline Phosphatase 81 U/L (45-117) 11/17/18 06:40 Troponin I 0.03 ng/ml (0.00-0.05) 11/16/18 14:18 Total Protein 6.2 g/dl (6.4-8.2) L 11/17/18 06:40 Albumin 2.6 g/dl (3.4-5.0) L 11/17/18 06:40 Lipase 344 U/L (73-393) 11/16/18 14:18 Current Medications Generic Name Dose Route Start Last Admin Trade Name Charo PRN Reason Stop Dose Admin Acetaminophen 1,000 mg 11/16/18 22:34 Ofirmev Injection - IVPB Q6H PRN PAIN LEVEL 6-10 Clonidine 0.2 mg 11/16/18 22:00 11/17/18 05:28 Catapres - PO 0.2 mg TID [facility] Administration Heparin Sodium (Porcine) 5,000 unit 11/16/18 22:00 11/17/18 05:28 Heparin - SQ 5,000 unit TID [facility] Administration Sodium Chloride 1,000 mls @ 125 mls/hr 11/16/18 21:34 11/16/18 22:04 Normal Saline - IV 125 mls/hr ASDIR [facility] Administration Insulin Aspart 1 vial 11/16/18 22:00 11/17/18 06:57 Novolog Vial Sliding Scale - SQ 8 units ACHS [facility] Administration Protocol Morphine Sulfate 2 mg 11/16/18 20:14 11/17/18 03:47 Morphine Sulfate IVPUSH 2 mg Q4H PRN Administration PAIN LEVEL 7 - 10 Ondansetron HCl 4 mg 11/16/18 22:31 11/17/18 00:15 Zofran Injection IVPUSH 4 mg Q4H PRN Administration NAUSEA AND/OR VOMITING Constitutional: Yes: Calm Eyes: Yes: Conjunctiva Clear HENT: Yes: Atraumatic Neck: Yes: Supple Cardiovascular: Yes: Regular Rate and Rhythm Respiratory: Yes: CTA Bilaterally Gastrointestinal Inspection: Yes: Scars (obliqur RUQ with nontender incisional hernia, Pfannensteil and oblique RLQ and drain incisions) ...Auscultate: Yes: Hypoactive Bowel Sounds ...Palpate: Yes: Soft, Other (nontender) ...Rectal Exam: Yes: Guaiac Negative (mushy brown g neg stool) Edema: No Neurological: Yes: Alert, Oriented Labs: CBC, BMP 11/17/18 06:40 11/17/18 06:40 INR, PTT INR 1.19 (0.82-1.09) 11/16/18 14:35 Imaging - Results Cat Scan: Image Reviewed (discussed with Dr Fong - see above) Problem List - Problems (1) Ileitis Assessment/Plan: The source of pain appears to be the the confluence of matted bowel loops in the RLQ which may reflect a hernia within a mesenteric defect, a Meckel's or other giant small bowel diverticulum, adhesions and less likely Crohns or a neoplastic ( ? carcinoid or lymphoma) process. It does appear to have been aggravated by constipation and straining so have advised Miralax chronically. I have discussed the situation with Dr Rodney and do not feel that Tatiana needs surgery at this time. She may come to need a colonoscopy to intubate the ileum but will start with a Meckel's scan. Code(s): K52.9 - NONINFECTIVE GASTROENTERITIS AND COLITIS, UNSPECIFIED (2) Diverticula of colon Code(s): K57.30 - DVRTCLOS OF LG INT W/O PERFORATION OR ABSCESS W/O BLEEDING (3) Constipation Code(s): K59.00 - CONSTIPATION, UNSPECIFIED (4) Adrenal adenoma Code(s): D35.00 - BENIGN NEOPLASM OF UNSPECIFIED ADRENAL GLAND (5) History of cholecystectomy Code(s): Z90.49 - ACQUIRED ABSENCE OF OTHER SPECIFIED PARTS OF DIGESTIVE TRACT (6) History of common bile duct surgery Code(s): Z98.890 - OTHER SPECIFIED POSTPROCEDURAL STATES (7) Pneumobilia Code(s): K83.8 - OTHER SPECIFIED DISEASES OF BILIARY TRACT (8) Abdominal pain Code(s): R10.9 - UNSPECIFIED ABDOMINAL PAIN Qualifiers: Abdominal location: unspecified location Qualified Code(s): R10.9 - Unspecified abdominal pain (9) Diabetes mellitus type 2 in obese Code(s): E11.69 - TYPE 2 DIABETES MELLITUS WITH OTHER SPECIFIED COMPLICATION; E66.9 - OBESITY, UNSPECIFIED (10) Gout Code(s): M10.9 - GOUT, UNSPECIFIED Qualifiers: Gout site: toe Gout etiology: unspecified cause Chronicity: unspecified Laterality: unspecified laterality Qualified Code(s): M10.9 - Gout, unspecified (11) S/P ureteral stent placement Code(s): Z96.0 - PRESENCE OF UROGENITAL IMPLANTS (12) Hydronephrosis, left Code(s): N13.30 - UNSPECIFIED HYDRONEPHROSIS Assessment/Plan Impression: Pain appears to be the the confluence of matted bowel loops in the RLQ which may reflect a hernia within a mesenteric defect, a Meckel's or other giant small bowel diverticulum, adhesions and less likely Crohns or a neoplastic ( ? carcinoid or lymphoma) process. Chronic constipation Diverticulosis ? Appendectomy? Plan: Continue NPO except for Miralax Meckel's scan Continue antibiotics as bowel may be compromised and causing bacteremai Surgery if condition deteriorates- Discussed with Dr Rodney
[2018-11-17] MEDS: POLYETHYLENE GLYCOL 3350 119 GM BTL PO SCH ×2 (13:49→22:06)
--- NOTE | 2018-11-17 14:03 | PN ---
Progress Note (short form) - Note Progress Note: ID ABDOMINAL PAIN SYNDROME RECENT L URETERAL STENT PLACEMENT / UTI OBTAIN BC CONTINUE ZOSYN
--- NOTE | 2018-11-17 14:35 | CONS ---
DATE OF CONSULTATION: DATE OF DICTATION: 11/17/2018 INFECTIOUS DISEASE CONSULTATION HISTORY OF PRESENT ILLNESS: The patient is a 72-year-old female who was evaluated for leukocytosis. The patient was admitted to the hospital on November 16, 2018, with complaints of abrupt onset of epigastric pain and nausea starting on the morning of admission. She presented to the emergency room where a CAT scan of the abdomen and pelvis was performed. There was questionable small-bowel obstruction versus cecal volvulus. She was seen in consultation by Surgery and GI. A CAT scan was repeated and was felt not to be consistent with volvulus. Her course was complicated by white blood cell count 11.5. She has no complaints of pain at the present time. She denies any vomiting. She has been passing flatus, however, has not had a bowel movement. The patient reports undergoing a left ureteral stent placement within the past week at an outside institution. She was prescribed ciprofloxacin for which she took 3 doses. She denies any associated fever or chills. No complaints of dysuria or hematuria. PAST MEDICAL HISTORY: Positive for nephrolithiasis, diabetes mellitus, hypertension, history of cholecystectomy, hernia repair with mesh, COPD, bilateral total knee replacements. ALLERGIES: LATEX, INSULIN, NAPROSYN. MEDICATIONS: Include: 1. Insulin. 2. Zyloprim. 3. Iron. 4. Aspirin. SOCIAL HISTORY: Patient lives in the community. She is retired. She is nonsmoker, non-drinker. SYSTEMS REVIEW: Neurologic: No loss of consciousness, seizure activity, focal weakness. Cardiac: Negative chest pain or palpitations. Respiratory: Negative cough or sputum production. Gastrointestinal: As per HPI. Genitourinary: As per HPI. LABORATORY DATA: White count on admission 11.5, presently 8.5, hematocrit 28.4, platelets 283. BUN 25, creatinine 1.3. Urine analysis 1 white cell. Blood cultures have been ordered. PHYSICAL EXAMINATION: General: Patient is awake and alert in no acute distress, obese. Vital Signs: Temperature 97.9, blood pressure 126/82, pulse 101 regular, respirations 20 per minute. HEENT: Sclerae anicteric. Heart: Sounds S1, S2. Lungs: Clear. Abdomen: Obese, soft. No tenderness elicited. Extremities: Negative for edema. IMPRESSION: 1. Abdominal pain syndrome, unclear etiology. 2. Status post left ureteral stent. 3. Urinary tract infection on Cipro. Surgical and GI evaluations appreciated. Will obtain blood cultures. Pending sepsis workup, empiric antibiotic coverage with Zosyn. Will follow. Thank you for the kind referral. MAYELIN DEMARCO M.D. [id number]
[2018-11-17] MEDS: PIPERACILLIN/TAZOB 3.375 GM 3.375 GM in DEXTROSE 5%-WATER - 50 ML IVPB SCH (18:12)
[2018-11-17] MEDS: ACETAMINOPHEN 1000 MG/100 ML VIAL (NON FORMULARY) IVPB PRN (22:47)
[2018-11-18] MEDS ORDERED: DEXTROSE 5%-WATER - 50 ML IVPB ONE ×4 (00:42→23:46)
[2018-11-18] MEDS ORDERED: PIPERACILLIN/TAZOBACTAM 3.375 GM VIAL IVPB ONE ×4 (00:42→23:46)
[2018-11-18] MEDS: PIPERACILLIN/TAZOB 3.375 GM 3.375 GM in DEXTROSE 5%-WATER - 50 ML IVPB SCH ×3 (01:21→17:10)
[2018-11-18] MEDS: SODIUM CHLORIDE 1,000 ML IV SCH ×2 (04:00→12:13)
[2018-11-18] MEDS: ACETAMINOPHEN 1000 MG/100 ML VIAL (NON FORMULARY) IVPB PRN ×3 (04:53→23:22)
[2018-11-18] MEDS: cloNIDine HCL 0.1 MG TABLET PO SCH ×3 (05:30→21:17)
[2018-11-18] MEDS: HEPARIN NA (PORCINE) 5,000 UNITS/ML 1ML VIAL SQ SCH ×3 (05:31→21:19)
[2018-11-18] MEDS: POLYETHYLENE GLYCOL 3350 119 GM BTL PO SCH ×3 (05:32→21:24)
[2018-11-18] MEDS: INSULIN SLIDING SCALE (NOVOLOG) 1 VIAL SQ SCH ×4 (06:39→21:22)
[2018-11-18 08:15] LABS: BASO % 0.5 % (0-2.0); EOS % 3.5 % (0-4.5); HEMATOCRIT 26.1 % (32.4-45.2); HEMOGLOBIN 8.9 GM/dL (10.7-15.3); LYMPH % 15.7 % (8-40); MCH 27.2 pg (25.7-33.7); MEAN CELL VOLUME 79.9 fl (80-96); MONO % 6.9 % (3.8-10.2); NEUT % 73.4 % (42.8-82.8); PLATELET COUNT 270 K/MM3 (134-434); RBC 3.27 M/mm3 (3.60-5.2); RDW 19.2 % (11.6-15.6); WHITE BLOOD COUNT 6.3 K/mm3 (4.0-10.0)
[2018-11-18 08:59] LABS: ALBUMIN 2.5 g/dl (3.4-5.0); ALK PHOS 69 U/L (45-117); ANION GAP 8 MMOL/L (8-16); BILIRUBIN,TOTAL 0.9 mg/dL (0.2-1); BLOOD UREA NITROGEN 27 mg/dL (7-18); CALCIUM 8.3 mg/dL (8.5-10.1); CHLORIDE 107 mmol/L (98-107); CO2 23 mmol/L (21-32); CREATININE 1.6 mg/dL (0.55-1.3); GLUCOSE,RANDOM 235 mg/dL (74-106); POTASSIUM 3.7 mmol/L (3.5-5.1); SGOT/AST 11 U/L (15-37); SGPT/ALT 11 U/L (13-61); SODIUM 138 mmol/L (136-145); TOT PROT 5.8 g/dl (6.4-8.2)
--- NOTE | 2018-11-18 15:18 | PN ---
Progress Note, Physician - Current Medication List Current Medications: Active Medications Acetaminophen (Ofirmev Injection -) 1,000 mg IVPB Q6H PRN PRN Reason: PAIN LEVEL 6-10 Last Admin: 11/18/18 04:53 Dose: 1,000 mg Clonidine (Catapres -) 0.2 mg PO TID [facility] Last Admin: 11/18/18 14:00 Dose: 0.2 mg Heparin Sodium (Porcine) (Heparin -) 5,000 unit SQ TID [facility] Last Admin: 11/18/18 14:02 Dose: 5,000 unit Sodium Chloride (Normal Saline -) 1,000 mls @ 125 mls/hr IV ASDIR [facility] Last Admin: 11/18/18 12:13 Dose: 125 mls/hr Piperacillin Sod/Tazobactam (Sod 3.375 gm/ Dextrose) 50 mls @ 100 mls/hr IVPB Q8H-IV [facility]; Protocol Last Admin: 11/18/18 10:19 Dose: 100 mls/hr Insulin Aspart (Novolog Vial Sliding Scale -) 1 vial SQ ACHS [facility]; Protocol Last Admin: 11/18/18 11:39 Dose: 2 units Ondansetron HCl (Zofran Injection) 4 mg IVPUSH Q4H PRN PRN Reason: NAUSEA AND/OR VOMITING Last Admin: 11/17/18 00:15 Dose: 4 mg Polyethylene Glycol (Miralax (For Daily Use) -) 17 gm PO TID [facility] Last Admin: 11/18/18 14:00 Dose: 17 gm - Objective Vital Signs: Vital Signs Temperature 98.2 F 11/18/18 08:35 Pulse Rate 58 L 11/18/18 14:00 Respiratory Rate 18 11/18/18 08:35 Blood Pressure 181/93 H 11/18/18 14:00 O2 Sat by Pulse Oximetry (%) 97 11/17/18 21:00 Labs: CBC, BMP 11/18/18 07:10 11/18/18 07:10 INR, PTT INR 1.19 (0.82-1.09) 11/16/18 14:35
--- NOTE | 2018-11-18 22:33 | PN.GI ---
GI Progress Note Subjective: GI NOte: Pain resolved. Having BMs with Miralax but willing to try golytely. Hungry . Meckel's scan negative - Objective Vital Signs: Vital Signs Temperature 97.9 F 11/18/18 17:56 Pulse Rate 56 L 11/18/18 17:56 Respiratory Rate 20 11/18/18 17:56 Blood Pressure 160/87 11/18/18 17:56 O2 Sat by Pulse Oximetry (%) 97 11/17/18 21:00 Laboratory Tests 11/16/18 11/16/18 11/17/18 14:35 21:12 06:40 WBC Hgb 11.4 9.5 L BUN Creatinine Hemoglobin A1c % Lactic Acid 2.5 H* C-Reactive Protein 11/17/18 11/17/18 11/18/18 06:40 06:40 07:10 WBC Hgb BUN 27 H Creatinine 1.6 H Hemoglobin A1c % 8.9 H Lactic Acid 1.2 C-Reactive Protein 1.9 H 11/18/18 07:10 WBC 6.3 Hgb 8.9 L BUN Creatinine Hemoglobin A1c % Lactic Acid C-Reactive Protein Constitutional: Calm ...Auscultate: Yes: Normoactive Bowel Sounds ...Palpate: Yes: Soft, Other (nontender) Labs: CBC, BMP 11/18/18 07:10 11/18/18 07:10 INR, PTT INR 1.19 (0.82-1.09) 11/16/18 14:35 Assessment/Plan Impression: Pain form confluence of matted bowel loops in the RLQ which may reflect a hernia within a mesenteric defect, a Meckel's or other giant small bowel diverticulum, adhesions and less likely Crohns or a neoplastic ( ? carcinoid or lymphoma) process. Chronic constipation Diverticulosis ? Appendectomy? Plan: Clear liquids Golytely lavage in AM Continue antibiotics Problem List - Problems (1) Ileitis Code(s): K52.9 - NONINFECTIVE GASTROENTERITIS AND COLITIS, UNSPECIFIED (2) Diverticula of colon Code(s): K57.30 - DVRTCLOS OF LG INT W/O PERFORATION OR ABSCESS W/O BLEEDING (3) Constipation Code(s): K59.00 - CONSTIPATION, UNSPECIFIED (4) Adrenal adenoma Code(s): D35.00 - BENIGN NEOPLASM OF UNSPECIFIED ADRENAL GLAND (5) History of cholecystectomy Code(s): Z90.49 - ACQUIRED ABSENCE OF OTHER SPECIFIED PARTS OF DIGESTIVE TRACT (6) History of common bile duct surgery Code(s): Z98.890 - OTHER SPECIFIED POSTPROCEDURAL STATES (7) Pneumobilia Code(s): K83.8 - OTHER SPECIFIED DISEASES OF BILIARY TRACT (8) Abdominal pain Code(s): R10.9 - UNSPECIFIED ABDOMINAL PAIN Qualifiers: Abdominal location: unspecified location Qualified Code(s): R10.9 - Unspecified abdominal pain (9) Diabetes mellitus type 2 in obese Code(s): E11.69 - TYPE 2 DIABETES MELLITUS WITH OTHER SPECIFIED COMPLICATION; E66.9 - OBESITY, UNSPECIFIED (10) Gout Code(s): M10.9 - GOUT, UNSPECIFIED Qualifiers: Gout site: toe Gout etiology: unspecified cause Chronicity: unspecified Laterality: unspecified laterality Qualified Code(s): M10.9 - Gout, unspecified (11) S/P ureteral stent placement Code(s): Z96.0 - PRESENCE OF UROGENITAL IMPLANTS (12) Hydronephrosis, left Code(s): N13.30 - UNSPECIFIED HYDRONEPHROSIS
[2018-11-18] MEDS ORDERED: SODIUM CHLORIDE 1,000 ML IV SCH (22:34)
[2018-11-19] MEDS: PIPERACILLIN/TAZOB 3.375 GM 3.375 GM in DEXTROSE 5%-WATER - 50 ML IVPB SCH ×3 (01:24→17:13)
[2018-11-19] MEDS ORDERED: MORPHINE SULFATE 2 MG/ML VIAL IVPUSH ONE (04:16)
[2018-11-19] MEDS: HEPARIN NA (PORCINE) 5,000 UNITS/ML 1ML VIAL SQ SCH ×3 (06:10→21:55)
[2018-11-19] MEDS: cloNIDine HCL 0.1 MG TABLET PO SCH ×2 (06:10→14:55)
[2018-11-19] MEDS: INSULIN SLIDING SCALE (NOVOLOG) 1 VIAL SQ SCH ×5 (06:11→22:47)
[2018-11-19] MEDS: POLYETHYLENE GLYCOL 3350 119 GM BTL PO SCH (06:13)
[2018-11-19 08:05] LABS: BASO % 0.5 % (0-2.0); EOS % 5.1 % (0-4.5); HEMATOCRIT 29.1 % (32.4-45.2); HEMOGLOBIN 9.7 GM/dL (10.7-15.3); LYMPH % 20.3 % (8-40); MCH 26.9 pg (25.7-33.7); MCHC 33.5 g/dl (32.0-36.0); MEAN CELL VOLUME 80.1 fl (80-96); MEAN PLT VOLUME 8.9 fl (7.5-11.1); MONO % 9.7 % (3.8-10.2); NEUT % 64.4 % (42.8-82.8); PLATELET COUNT 271 K/MM3 (134-434); RBC 3.63 M/mm3 (3.60-5.2); WHITE BLOOD COUNT 4.8 K/mm3 (4.0-10.0)
[2018-11-19 08:30] LABS: ANION GAP 10 MMOL/L (8-16); BLOOD UREA NITROGEN 20 mg/dL (7-18); CALCIUM 8.6 mg/dL (8.5-10.1); CHLORIDE 105 mmol/L (98-107); CO2 24 mmol/L (21-32); CREATININE 1.3 mg/dL (0.55-1.3); GLUCOSE,RANDOM 183 mg/dL (74-106); POTASSIUM 3.7 mmol/L (3.5-5.1); SODIUM 139 mmol/L (136-145)
[2018-11-19] MEDS ORDERED: PEG 3350/NA SULF BICARB CL/KCL 4000 ML SOLN.RECON PO ONE (09:00)
[2018-11-19] MEDS: ACETAMINOPHEN 1000 MG/100 ML VIAL (NON FORMULARY) IVPB PRN ×2 (09:08→18:44)
[2018-11-19] MEDS ORDERED: DEXTROSE 5%-WATER - 50 ML IVPB ONE ×2 (09:47→17:08)
[2018-11-19] MEDS ORDERED: PIPERACILLIN/TAZOBACTAM 3.375 GM VIAL IVPB ONE ×2 (09:47→17:08)
--- NOTE | 2018-11-19 11:15 | PN ---
Progress Note, Physician History of Present Illness: AWAKE, ALERT IN BED C/O R SIDED ABDOMINAL DISCOMFORT + FLATUS/ LOOSE BMS NO N/V NO F/C - Current Medication List Current Medications: Active Medications Acetaminophen (Ofirmev Injection -) 1,000 mg IVPB Q6H PRN PRN Reason: PAIN LEVEL 6-10 Last Admin: 11/19/18 09:08 Dose: 1,000 mg Clonidine (Catapres -) 0.2 mg PO TID [facility] Last Admin: 11/19/18 06:10 Dose: 0.2 mg Heparin Sodium (Porcine) (Heparin -) 5,000 unit SQ TID [facility] Last Admin: 11/19/18 06:10 Dose: 5,000 unit Piperacillin Sod/Tazobactam (Sod 3.375 gm/ Dextrose) 50 mls @ 100 mls/hr IVPB Q8H-IV [facility]; Protocol Last Admin: 11/19/18 09:49 Dose: 100 mls/hr Sodium Chloride (Normal Saline -) 1,000 mls @ 75 mls/hr IV ASDIR [facility] Last Admin: 11/18/18 23:20 Dose: 75 mls/hr Insulin Aspart (Novolog Vial Sliding Scale -) 1 vial SQ ACHS [facility]; Protocol Last Admin: 11/19/18 06:11 Dose: 2 units Ondansetron HCl (Zofran Injection) 4 mg IVPUSH Q4H PRN PRN Reason: NAUSEA AND/OR VOMITING Last Admin: 11/17/18 00:15 Dose: 4 mg - Objective Vital Signs: Vital Signs Temperature 98.1 F 11/19/18 10:00 Pulse Rate 53 L 11/19/18 10:00 Respiratory Rate 18 11/19/18 10:00 Blood Pressure 144/58 L 11/19/18 10:00 O2 Sat by Pulse Oximetry (%) 100 11/18/18 21:00 Constitutional: Yes: No Distress, Obese Eyes: Yes: Conjunctiva Clear Cardiovascular: Yes: Regular Rate and Rhythm, S1, S2 Respiratory: Yes: CTA Bilaterally Gastrointestinal: Yes: Normal Bowel Sounds, Soft, Tenderness, Other (MILD R SIDED ABDOMINAL TENDERNESS) Labs: CBC, BMP 11/19/18 07:00 11/19/18 07:00 INR, PTT INR 1.19 (0.82-1.09) 11/16/18 14:35 Assessment/Plan ABDOMINAL PAIN SYNDROME RECENT UTI/ URETERAL STENT PLACEMENT CONTINUE EMPIRIC ZOSYN
--- NOTE | 2018-11-19 13:39 | PN ---
Progress Note, Physician History of Present Illness: Obese, diabetic patient with abdominal pain, nausea, and imaging suspicious for intraabdominal/bowel pathology. Differential included: cecal volvulus (ruled out, cecum is clearly visible separate from affected bowel loop on subsequent imaging), small bowel obstructive process (not highly likely, as oral contrast gets into and out of dilated, fecalized distal bowel loop), stasis in ?Meckel's or otherwise dilated portion of distal small bowel ( fecalization and enlargement of distal SB loop/area which is visible but not as prominent on previous years' CT scans), enteritis (there is a segment of bowel leading into or out of the enlarged loop which appears thickened though contrast passes through it), hernia (internal or abdominal wall - there does appear to be a defect in the right lateral abdominal wall on review of images, though no clear extrusion of intraabdominal content, more likely chronic bulging/weakness), or chronic partial obstructive process with impingement of bowel loops on each other, leading to dilation and accumulation of content in one particular loop, which has been present in similar location over at least 4-[address] scans[address] Last upper and lower endoscopy was by Dr. Cedillo last February. Patient seen and examined in room in chair and in bed. She reports pain in mid- abdomen, radiating up and down, which started back again last night, and has persisted today, not fully relieved by IV Tylenol. She has been passing diarrheal stool since oral contrast for CT. She was to try clear liquids and Golytely today, but has not had any of the latter, both of which were d/c'd because of the pain. She is urinating ok. No fevers. - Current Medication List Current Medications: Active Medications Acetaminophen (Ofirmev Injection -) 1,000 mg IVPB Q6H PRN PRN Reason: PAIN LEVEL 6-10 Last Admin: 11/19/18 09:08 Dose: 1,000 mg Clonidine (Catapres -) 0.2 mg PO TID [facility] Last Admin: 11/19/18 06:10 Dose: 0.2 mg Heparin Sodium (Porcine) (Heparin -) 5,000 unit SQ TID [facility] Last Admin: 11/19/18 06:10 Dose: 5,000 unit Piperacillin Sod/Tazobactam (Sod 3.375 gm/ Dextrose) 50 mls @ 100 mls/hr IVPB Q8H-IV [facility]; Protocol Last Admin: 11/19/18 09:49 Dose: 100 mls/hr Sodium Chloride (Normal Saline -) 1,000 mls @ 75 mls/hr IV ASDIR [facility] Last Admin: 11/18/18 23:20 Dose: 75 mls/hr Insulin Aspart (Novolog Vial Sliding Scale -) 1 vial SQ ACHS [facility]; Protocol Last Admin: 11/19/18 13:09 Dose: Not Given Ondansetron HCl (Zofran Injection) 4 mg IVPUSH Q4H PRN PRN Reason: NAUSEA AND/OR VOMITING Last Admin: 11/17/18 00:15 Dose: 4 mg - Objective Vital Signs: Vital Signs Temperature 98.1 F 11/19/18 10:00 Pulse Rate 53 L 11/19/18 10:00 Respiratory Rate 18 11/19/18 10:00 Blood Pressure 144/58 L 11/19/18 10:00 O2 Sat by Pulse Oximetry (%) 100 11/18/18 21:00 Constitutional: Yes: No Distress, Calm, Obese Eyes: Yes: Conjunctiva Clear, EOM Intact HENT: Yes: Atraumatic, Normocephalic Gastrointestinal: Yes: Soft, Abdomen, Obese, Tenderness (over right central abdomen mostly, over area of R subcostal long scar and a little lower, mild discomfort when right lateral abdomen palpated deeply/area of incisional hernia - no rebound or guarding, can manipulate underlying bowel gently and occasionally hear and feel gas bubbles and liquid moving through intestines) Extremities: No: Cool, Cyanosis Integumentary: No: Jaundice, Rash Neurological: Yes: Alert, Oriented. No: Unsteady Gait Labs: CBC, BMP 11/19/18 07:00 11/19/18 07:00 CMP Sodium 139 mmol/L (136-145) 11/19/18 07:00 Potassium 3.7 mmol/L (3.5-5.1) 11/19/18 07:00 Chloride 105 mmol/L (98-107) 11/19/18 07:00 Carbon Dioxide 24 mmol/L (21-32) 11/19/18 07:00 Anion Gap 10 MMOL/L (8-16) 11/19/18 07:00 BUN 20 mg/dL (7-18) H 11/19/18 07:00 Creatinine 1.3 mg/dL (0.55-1.3) 11/19/18 07:00 Creat Clearance w eGFR 40.04 (>60) 11/19/18 07:00 POC Glucometer 261 UNITS (80-120) 11/19/18 12:38 Random Glucose 183 mg/dL (74-106) H 11/19/18 07:00 Hemoglobin A1c % 8.9 % (4.2-6.3) H 11/17/18 06:40 Lactic Acid 1.2 mmol/L (0.4-2.0) 11/17/18 06:40 Calcium 8.6 mg/dL (8.5-10.1) 11/19/18 07:00 Phosphorus 3.8 mg/dL (2.5-4.9) 11/16/18 21:12 Magnesium 2.0 mg/dL (1.8-2.4) 11/19/18 07:00 Total Bilirubin 0.9 mg/dL (0.2-1) 11/18/18 07:10 AST 11 U/L (15-37) L 11/18/18 07:10 ALT 11 U/L (13-61) L 11/18/18 07:10 Alkaline Phosphatase 69 U/L (45-117) 11/18/18 07:10 Troponin I 0.03 ng/ml (0.00-0.05) 11/16/18 14:18 C-Reactive Protein 1.9 MG/DL (0.00-0.3) H 11/19/18 07:00 Total Protein 5.8 g/dl (6.4-8.2) L 11/18/18 07:10 Albumin 2.5 g/dl (3.4-5.0) L 11/18/18 07:10 Lipase 344 U/L (73-393) 11/16/18 14:18 - ....Imaging X-ray: Report Reviewed, Image Reviewed (images just taken of abdomen show contrast mostly evacuated from colon with little residual in right colon but no obvious collection in large bowel loop correlated with CT site of same) Problem List - Problems (1) Generalized abdominal pain Assessment/Plan: pt with continued mid/right abdominal pain and tenderness po contrast from CT now essentially evacuated NPO/IVF keep well-hydrated trending labs glucose control antibiotics continuing per ID Meckel's scan with no ectopic gastric mucosa AXR reviewed and little residual contrast in right colon but no large collection of it in region of affected bowel loop discussed with Dr. Reaves, Dr. oFng/rad would likely opt at this point for a dynamic imaging study to better evaluate the anatomy of the affected area - GI series with small bowel follow through with special attention to continuous or very frequent imaging in area of concern will plan to arrange in am with radiology morphine small dose prn added back for pain relief Code(s): R10.84 - GENERALIZED ABDOMINAL PAIN (2) Hypertension Code(s): I10 - ESSENTIAL (PRIMARY) HYPERTENSION Qualifiers: Hypertension type: essential hypertension Qualified Code(s): I10 - Essential (primary) hypertension (3) Diabetes mellitus type 2 in obese Code(s): E11.69 - TYPE 2 DIABETES MELLITUS WITH OTHER SPECIFIED COMPLICATION; E66.9 - OBESITY, UNSPECIFIED (4) S/P ureteral stent placement Code(s): Z96.0 - PRESENCE OF UROGENITAL IMPLANTS (5) Gout Code(s): M10.9 - GOUT, UNSPECIFIED Qualifiers: Gout site: toe Gout etiology: unspecified cause Chronicity: unspecified Laterality: unspecified laterality Qualified Code(s): M10.9 - Gout, unspecified (6) CKD (chronic kidney disease) stage 3, GFR 30-59 ml/min Code(s): N18.3 - CHRONIC KIDNEY DISEASE, STAGE 3 (MODERATE)
[2018-11-19] MEDS: MORPHINE SULFATE 2 MG/ML VIAL IVPUSH PRN ×3 (13:50→22:55)
--- NOTE | 2018-11-19 15:53 | PN ---
Progress Note, Physician Chief Complaint: Abdominal pain SBP vs Cecal Volvulus History of Present Illness: Previous notes and events reviewed awake and alert NAD complain of abdominal pain, improved with morphine placed on NPO denies chest pain, SOB - Current Medication List Current Medications: Active Medications Acetaminophen (Ofirmev Injection -) 1,000 mg IVPB Q6H PRN PRN Reason: PAIN LEVEL 6-10 Last Admin: 11/19/18 09:08 Dose: 1,000 mg Clonidine (Catapres -) 0.2 mg PO TID [facility] Last Admin: 11/19/18 14:55 Dose: 0.2 mg Heparin Sodium (Porcine) (Heparin -) 5,000 unit SQ TID [facility] Last Admin: 11/19/18 14:55 Dose: 5,000 unit Piperacillin Sod/Tazobactam (Sod 3.375 gm/ Dextrose) 50 mls @ 100 mls/hr IVPB Q8H-IV [facility]; Protocol Last Admin: 11/19/18 09:49 Dose: 100 mls/hr Sodium Chloride (Normal Saline -) 1,000 mls @ 75 mls/hr IV ASDIR [facility] Last Admin: 11/18/18 23:20 Dose: 75 mls/hr Insulin Aspart (Novolog Vial Sliding Scale -) 1 vial SQ ACHS [facility]; Protocol Last Admin: 11/19/18 14:15 Dose: 6 units Morphine Sulfate (Morphine Sulfate) 2 mg IVPUSH Q4H PRN PRN Reason: PAIN LEVEL 7 - 10 Last Admin: 11/19/18 13:50 Dose: 2 mg Ondansetron HCl (Zofran Injection) 4 mg IVPUSH Q4H PRN PRN Reason: NAUSEA AND/OR VOMITING Last Admin: 11/17/18 00:15 Dose: 4 mg - Objective Vital Signs: Vital Signs Temperature 98.2 F 11/19/18 14:56 Pulse Rate 50 L 11/19/18 14:56 Respiratory Rate 18 11/19/18 14:56 Blood Pressure 155/72 11/19/18 14:56 O2 Sat by Pulse Oximetry (%) 100 11/18/18 21:00 Constitutional: Yes: No Distress, Calm Eyes: Yes: Conjunctiva Clear HENT: Yes: Atraumatic Cardiovascular: Yes: Regular Rate and Rhythm Respiratory: Yes: Regular, CTA Bilaterally Gastrointestinal: Yes: Normal Bowel Sounds, Soft, Tenderness (diffusely) Musculoskeletal: Yes: Muscle Weakness Extremities: Yes: WNL Neurological: Yes: Alert, Oriented Psychiatric: Yes: Alert, Oriented Labs: CBC, BMP 11/19/18 07:00 11/19/18 07:00 INR, PTT INR 1.19 (0.82-1.09) 11/16/18 14:35 Microbiology 11/17/18 15:15 Blood - Peripheral Venous Blood Culture - Preliminary NO GROWTH OBTAINED AFTER 24 HOURS, INCUBATION TO CONTINUE FOR 4 DAYS. 11/17/18 15:45 Blood - Peripheral Venous Blood Culture - Preliminary NO GROWTH OBTAINED AFTER 24 HOURS, INCUBATION TO CONTINUE FOR 4 DAYS. 11/16/18 22:45 Urine - Urine Clean Catch Urine Culture - Final NO GROWTH OBTAINED Problem List - Problems (1) Abdominal pain Assessment/Plan: - -Abdomen and Pelvic CT scan shows abnormal cecal position but no evidence of volvulus, abnormal ileal loops possibly representing enteritis -Meckel scan shows no scintigraphic evidence of Meckel diverticulum containing ectopic gastric mucosa -pain management -NPO -continue with IV zosyn -IV hydration -surgery on board -GI on board -pain management -zofran prn for nausea Code(s): R10.9 - UNSPECIFIED ABDOMINAL PAIN Qualifiers: Abdominal location: unspecified location Qualified Code(s): R10.9 - Unspecified abdominal pain (2) CKD (chronic kidney disease) stage 3, GFR 30-59 ml/min Assessment/Plan: -BUN/Cr 20/1.3 -monitor renal function daily Code(s): N18.3 - CHRONIC KIDNEY DISEASE, STAGE 3 (MODERATE) (3) Diabetes mellitus type 2 in obese Assessment/Plan: -BGM ACHS -ISS -HgA1c 8.9% Code(s): E11.69 - TYPE 2 DIABETES MELLITUS WITH OTHER SPECIFIED COMPLICATION; E66.9 - OBESITY, UNSPECIFIED (4) Hypertension Assessment/Plan: -continue clonidine Code(s): I10 - ESSENTIAL (PRIMARY) HYPERTENSION Qualifiers: Hypertension type: essential hypertension Qualified Code(s): I10 - Essential (primary) hypertension (5) Hydronephrosis, left Assessment/Plan: -L ureteral stent, previously followed by urologist in [place] -will consult uro if voiding problems develop Code(s): N13.30 - UNSPECIFIED HYDRONEPHROSIS Assessment/Plan see problem list dvt ppx
[2018-11-19] MEDS ORDERED: DEXTROSE 5%-NORMAL SALINE 1,000 ML IV SCH (16:00)
--- NOTE | 2018-11-19 16:49 | PN.GI ---
GI Progress Note Subjective: GI NOte: Pain recurred this AM after clear liquids and despite having 2 diarrhea BMs. NO vomiting. Requiring morphine to alleviate pain that she describes as 7/10. No fever. FUA inremarkable,. Golytely stopped. - Objective Vital Signs: Vital Signs Temperature 98.2 F 11/19/18 14:56 Pulse Rate 50 L 11/19/18 14:56 Respiratory Rate 18 11/19/18 14:56 Blood Pressure 155/72 11/19/18 14:56 O2 Sat by Pulse Oximetry (%) 100 11/18/18 21:00 Laboratory Tests 11/16/18 11/17/18 11/18/18 14:35 06:40 07:10 WBC 11.5 H 8.5 6.3 Hgb 11.4 C-Reactive Protein 11/19/18 11/19/18 07:00 07:00 WBC 4.8 Hgb 9.7 L C-Reactive Protein 1.9 H Constitutional: Anxious ...Auscultate: Yes: Hypoactive Bowel Sounds (om morphine) ...Palpate: Yes: Other (mild diffuse nonlocalizing tenderness) Labs: CBC, BMP 11/19/18 07:00 11/19/18 07:00 INR, PTT INR 1.19 (0.82-1.09) 11/16/18 14:35 Assessment/Plan Impression: Flare of pain felt to reflect confluence of matted bowel loops in the RLQ which may reflect a hernia within a mesenteric defect, ar giant small bowel diverticulum, adhesions and less likely Crohns or a neoplastic ( ? carcinoid or lymphoma) process. Chronic constipation Diverticulosis ? Appendectomy? Plan: NPO Continue antibiotics Exploratory laparoscopy may become necessary. Already seen by Dr Rodney who asked to cancel my CT in favor of a study to be decicied upin in discussion with the radiologists Problem List - Problems (1) Ileitis Code(s): K52.9 - NONINFECTIVE GASTROENTERITIS AND COLITIS, UNSPECIFIED (2) Diverticula of colon Code(s): K57.30 - DVRTCLOS OF LG INT W/O PERFORATION OR ABSCESS W/O BLEEDING (3) Constipation Code(s): K59.00 - CONSTIPATION, UNSPECIFIED (4) Adrenal adenoma Code(s): D35.00 - BENIGN NEOPLASM OF UNSPECIFIED ADRENAL GLAND (5) History of cholecystectomy Code(s): Z90.49 - ACQUIRED ABSENCE OF OTHER SPECIFIED PARTS OF DIGESTIVE TRACT (6) History of common bile duct surgery Code(s): Z98.890 - OTHER SPECIFIED POSTPROCEDURAL STATES (7) Pneumobilia Code(s): K83.8 - OTHER SPECIFIED DISEASES OF BILIARY TRACT (8) Abdominal pain Code(s): R10.9 - UNSPECIFIED ABDOMINAL PAIN Qualifiers: Abdominal location: unspecified location Qualified Code(s): R10.9 - Unspecified abdominal pain (9) Diabetes mellitus type 2 in obese Code(s): E11.69 - TYPE 2 DIABETES MELLITUS WITH OTHER SPECIFIED COMPLICATION; E66.9 - OBESITY, UNSPECIFIED (10) Gout Code(s): M10.9 - GOUT, UNSPECIFIED Qualifiers: Gout site: toe Gout etiology: unspecified cause Chronicity: unspecified Laterality: unspecified laterality Qualified Code(s): M10.9 - Gout, unspecified (11) S/P ureteral stent placement Code(s): Z96.0 - PRESENCE OF UROGENITAL IMPLANTS (12) Hydronephrosis, left Code(s): N13.30 - UNSPECIFIED HYDRONEPHROSIS
[2018-11-19] MEDS ORDERED: DEXTROSE 5%-0.45% SALINE 1,000 ML IV SCH (17:00)
--- NOTE | 2018-11-19 17:19 | PN ---
Progress Note (short form) - Note Progress Note: GI : Pain intensifying. Will order stat CT, Problem List - Problems (1) Ileitis Code(s): K52.9 - NONINFECTIVE GASTROENTERITIS AND COLITIS, UNSPECIFIED (2) Diverticula of colon Code(s): K57.30 - DVRTCLOS OF LG INT W/O PERFORATION OR ABSCESS W/O BLEEDING (3) Constipation Code(s): K59.00 - CONSTIPATION, UNSPECIFIED (4) Adrenal adenoma Code(s): D35.00 - BENIGN NEOPLASM OF UNSPECIFIED ADRENAL GLAND (5) History of cholecystectomy Code(s): Z90.49 - ACQUIRED ABSENCE OF OTHER SPECIFIED PARTS OF DIGESTIVE TRACT (6) History of common bile duct surgery Code(s): Z98.890 - OTHER SPECIFIED POSTPROCEDURAL STATES (7) Pneumobilia Code(s): K83.8 - OTHER SPECIFIED DISEASES OF BILIARY TRACT (8) Abdominal pain Code(s): R10.9 - UNSPECIFIED ABDOMINAL PAIN Qualifiers: Abdominal location: unspecified location Qualified Code(s): R10.9 - Unspecified abdominal pain (9) Diabetes mellitus type 2 in obese Code(s): E11.69 - TYPE 2 DIABETES MELLITUS WITH OTHER SPECIFIED COMPLICATION; E66.9 - OBESITY, UNSPECIFIED (10) Gout Code(s): M10.9 - GOUT, UNSPECIFIED Qualifiers: Gout site: toe Gout etiology: unspecified cause Chronicity: unspecified Laterality: unspecified laterality Qualified Code(s): M10.9 - Gout, unspecified (11) S/P ureteral stent placement Code(s): Z96.0 - PRESENCE OF UROGENITAL IMPLANTS (12) Hydronephrosis, left Code(s): N13.30 - UNSPECIFIED HYDRONEPHROSIS
--- NOTE | 2018-11-19 17:33 | PN ---
Progress Note (short form) - Note Progress Note: GI : Pain intensifying. Will order stat CT and blood testing Abd: distended, diffusely tender Communicated with Dr Rodney and the surgery technician. Will give brisk IV fluids after the CT IV contrast which is critical to excluding mesenteric ischemia Problem List - Problems (1) Ileitis Code(s): K52.9 - NONINFECTIVE GASTROENTERITIS AND COLITIS, UNSPECIFIED (2) Diverticula of colon Code(s): K57.30 - DVRTCLOS OF LG INT W/O PERFORATION OR ABSCESS W/O BLEEDING (3) Constipation Code(s): K59.00 - CONSTIPATION, UNSPECIFIED (4) Adrenal adenoma Code(s): D35.00 - BENIGN NEOPLASM OF UNSPECIFIED ADRENAL GLAND (5) History of cholecystectomy Code(s): Z90.49 - ACQUIRED ABSENCE OF OTHER SPECIFIED PARTS OF DIGESTIVE TRACT (6) History of common bile duct surgery Code(s): Z98.890 - OTHER SPECIFIED POSTPROCEDURAL STATES (7) Pneumobilia Code(s): K83.8 - OTHER SPECIFIED DISEASES OF BILIARY TRACT (8) Abdominal pain Code(s): R10.9 - UNSPECIFIED ABDOMINAL PAIN Qualifiers: Abdominal location: unspecified location Qualified Code(s): R10.9 - Unspecified abdominal pain (9) Diabetes mellitus type 2 in obese Code(s): E11.69 - TYPE 2 DIABETES MELLITUS WITH OTHER SPECIFIED COMPLICATION; E66.9 - OBESITY, UNSPECIFIED (10) Gout Code(s): M10.9 - GOUT, UNSPECIFIED Qualifiers: Gout site: toe Gout etiology: unspecified cause Chronicity: unspecified Laterality: unspecified laterality Qualified Code(s): M10.9 - Gout, unspecified (11) S/P ureteral stent placement Code(s): Z96.0 - PRESENCE OF UROGENITAL IMPLANTS (12) Hydronephrosis, left Code(s): N13.30 - UNSPECIFIED HYDRONEPHROSIS
[2018-11-19] MEDS: DEXTROSE 5%-0.45% SALINE 1,000 ML IV SCH ×2 (18:25→19:51)
--- NOTE | 2018-11-19 19:22 | HOSP ---
Subjective - Review of Symptoms Events since last encounter: Call received as patient has worsening abd pain , patient was evaluated by the GI consult for the same recommonded CTA abd and Pelvis to R/O acute pathology Vitals; Vital Signs Temperature 98.4 F 11/19/18 18:32 Pulse Rate 70 11/19/18 18:32 Respiratory Rate 20 11/19/18 18:32 Blood Pressure 176/71 H 11/19/18 18:32 O2 Sat by Pulse Oximetry (%) 100 11/18/18 21:00 Elderly in distress due to pain HEENT: mm moist, no anemia NECK: No JVd No Bruit CHEST: CTA B/L CVS: S1S2 R ABD: Distended, diffuse tenderness, BS + EXT: Trace edema GAUGE AND INSTRUMENT INSPECTOR: AOx3 non focal LABS: CBC,CMP CBC, BMP 11/19/18 07:00 11/19/18 07:00 CT abd and CTA: Pending: Prelim as per Radiology SBO A/Plan: 72 yrs old with H/O HTn, T2DM, renal calculi admitted with abd pain initial CT abd shows collitis, labs improving on current treatment , developed worsening pain CT abd and CTA as per prelim report SBO no perforation, or ischemia, GI evaluated recommonded NG tube will optimize pain meds as per response after NG tube insertion and decompression of GI Rest cont current management. Subjective: Abdominal pain General: No: Chills Gastrointestinal: Yes: Abdominal Pain Physical Examination Vital Signs: Vital Signs Labs: CBC, BMP 11/19/18 07:00 11/19/18 07:00
--- NOTE | 2018-11-19 19:24 | PN ---
Progress Note (short form) - Note Progress Note: GI NOte: Discussed CT with DR Fong. No perforation. No vascular thrombosis. There is small bowel obstruction. I suspect the cause are the matted loops of bowel in the RLQ. I have ordered NG tube to suctioning. Continue to suspect an internal hernia through a mesenteric defect. Discussed with the nurse who informs me that Dr Rodney is involved and reviewing the CT scan. Problem List - Problems (1) Ileitis Code(s): K52.9 - NONINFECTIVE GASTROENTERITIS AND COLITIS, UNSPECIFIED (2) Diverticula of colon Code(s): K57.30 - DVRTCLOS OF LG INT W/O PERFORATION OR ABSCESS W/O BLEEDING (3) Constipation Code(s): K59.00 - CONSTIPATION, UNSPECIFIED (4) Adrenal adenoma Code(s): D35.00 - BENIGN NEOPLASM OF UNSPECIFIED ADRENAL GLAND (5) History of cholecystectomy Code(s): Z90.49 - ACQUIRED ABSENCE OF OTHER SPECIFIED PARTS OF DIGESTIVE TRACT (6) History of common bile duct surgery Code(s): Z98.890 - OTHER SPECIFIED POSTPROCEDURAL STATES (7) Pneumobilia Code(s): K83.8 - OTHER SPECIFIED DISEASES OF BILIARY TRACT (8) Abdominal pain Code(s): R10.9 - UNSPECIFIED ABDOMINAL PAIN Qualifiers: Abdominal location: unspecified location Qualified Code(s): R10.9 - Unspecified abdominal pain (9) Diabetes mellitus type 2 in obese Code(s): E11.69 - TYPE 2 DIABETES MELLITUS WITH OTHER SPECIFIED COMPLICATION; E66.9 - OBESITY, UNSPECIFIED (10) Gout Code(s): M10.9 - GOUT, UNSPECIFIED Qualifiers: Gout site: toe Gout etiology: unspecified cause Chronicity: unspecified Laterality: unspecified laterality Qualified Code(s): M10.9 - Gout, unspecified (11) S/P ureteral stent placement Code(s): Z96.0 - PRESENCE OF UROGENITAL IMPLANTS (12) Hydronephrosis, left Code(s): N13.30 - UNSPECIFIED HYDRONEPHROSIS
[2018-11-19 20:46] LABS: BASO % 0.4 % (0-2.0); EOS % 1.4 % (0-4.5); HEMATOCRIT 29.6 % (32.4-45.2); LYMPH % 8.6 % (8-40); MCH 26.5 pg (25.7-33.7); MCHC 33.7 g/dl (32.0-36.0); MEAN CELL VOLUME 78.7 fl (80-96); MEAN PLT VOLUME 9.1 fl (7.5-11.1); MONO % 7.8 % (3.8-10.2); NEUT % 81.8 % (42.8-82.8); PLATELET COUNT 290 K/MM3 (134-434); RBC 3.76 M/mm3 (3.60-5.2); RDW 18.8 % (11.6-15.6); WHITE BLOOD COUNT 7.6 K/mm3 (4.0-10.0)
--- NOTE | 2018-11-19 20:59 | PN ---
Progress Note (short form) - Note Progress Note: Pt had episode of severe pain earlier despite morphine, and was seen by GI at the time. Dr. Reaves sent her for CTA a/p, which I have now reviewed and discussed with Dr. Fong of radiology. No obvious ischemic changes or vascular blockages, but the affected loop of distal SB in right mid-abdomen now appears to be causing a developing small bowel obstruction with some proximal more dilated bowel loops, and there is thickened loop of bowel behind the affected site as well. There is contrast in the right colon, and still some fecalized content in the noted dilated distal SB. She is seen back from CT in her bed, still with pain and tenderness, though not with peritoneal signs. I placed an 18Fr single-lumen [place] NGT to low intermittent suction with immediate return of about 100ml opaque yellow fluid. We discussed at this point needing to plan for operative exploration and likely resection of the affected loop(s) of bowel. She is uncomfortable, but not peritoneal and not in extremis. Will speak with her sister by phone to answer questions. Discussed with patient risks, benefits and alternatives of diagnostic laparoscopy, possible laparotomy, possible bowel resection, possible ostomy, including but not limited to bleeding, infection, injury to adjacent structures , intestinal leak or injury, intraabdominal abscess, incisional hernia, need for further procedures, ; alternatives include delayed or no surgery - risks of this include progressive obstruction, bowel perforation, bowel ischemia , sepsis, recurrence, . Patient desires to proceed with operation - will take to OR for above at 8am in morning. Informed consent signed for same. Will repeat labs and give IV fluids overnight. Continue antibiotics. Discussed with Dr. Reaves and OR/anesthesia staff. Problem List - Problems (1) Generalized abdominal pain Code(s): R10.84 - GENERALIZED ABDOMINAL PAIN (2) Hypertension Code(s): I10 - ESSENTIAL (PRIMARY) HYPERTENSION Qualifiers: Hypertension type: essential hypertension Qualified Code(s): I10 - Essential (primary) hypertension (3) Diabetes mellitus type 2 in obese Code(s): E11.69 - TYPE 2 DIABETES MELLITUS WITH OTHER SPECIFIED COMPLICATION; E66.9 - OBESITY, UNSPECIFIED (4) S/P ureteral stent placement Code(s): Z96.0 - PRESENCE OF UROGENITAL IMPLANTS (5) Gout Code(s): M10.9 - GOUT, UNSPECIFIED Qualifiers: Gout site: toe Gout etiology: unspecified cause Chronicity: unspecified Laterality: unspecified laterality Qualified Code(s): M10.9 - Gout, unspecified (6) CKD (chronic kidney disease) stage 3, GFR 30-59 ml/min Code(s): N18.3 - CHRONIC KIDNEY DISEASE, STAGE 3 (MODERATE)
[2018-11-19] MEDS ORDERED: LACTATED RINGERS SOLUTION 1,000 ML/1,000 ML INFUS.BAG IV SCH (21:15)
[2018-11-19 21:22] LABS: AMYLASE 50 U/L (25-115); ANION GAP 11 MMOL/L (8-16); BLOOD UREA NITROGEN 16 mg/dL (7-18); CHLORIDE 101 mmol/L (98-107); CO2 25 mmol/L (21-32); CREATININE 1.3 mg/dL (0.55-1.3); GLUCOSE,RANDOM 164 mg/dL (74-106); LIPASE 154 U/L (73-393); POTASSIUM 3.5 mmol/L (3.5-5.1); SODIUM 137 mmol/L (136-145)
[2018-11-19 21:47] LABS: LDH 152 U/L (84-246)
[2018-11-19] MEDS: KCL 10 MEQ IVPB 10 MEQ/100 ML INFUS.BAG IVPB SCH (23:04)
[2018-11-20] MEDS ORDERED: DEXTROSE 5%-WATER - 50 ML IVPB ONE ×4 (00:04→21:28)
[2018-11-20] MEDS ORDERED: PIPERACILLIN/TAZOBACTAM 3.375 GM VIAL IVPB ONE ×4 (00:04→21:27)
[2018-11-20] MEDS: KCL 10 MEQ IVPB 10 MEQ/100 ML INFUS.BAG IVPB SCH ×4 (01:07→17:27)
[2018-11-20] MEDS: PIPERACILLIN/TAZOB 3.375 GM 3.375 GM in DEXTROSE 5%-WATER - 50 ML IVPB SCH ×2 (01:50→18:52)
[2018-11-20] MEDS: ACETAMINOPHEN 1000 MG/100 ML VIAL (NON FORMULARY) IVPB PRN (04:15)
[2018-11-20] MEDS: HEPARIN NA (PORCINE) 5,000 UNITS/ML 1ML VIAL SQ SCH ×3 (06:03→22:12)
[2018-11-20] MEDS: INSULIN SLIDING SCALE (NOVOLOG) 1 VIAL SQ SCH ×3 (06:46→22:13)
[2018-11-20] MEDS ORDERED: ONDANSETRON 4 MG/2 ML VIAL IVPUSH PRN (07:49)
[2018-11-20] MEDS ORDERED: PROMETHAZINE HCL 25 MG/1 ML VIAL IVPB PRN ×2 (07:49→12:08)
[2018-11-20] MEDS ORDERED: DEXAMETHASONE SOD PHOSPHATE 4 MG/1 ML VIAL IVPUSH PRN ×2 (07:49→12:08)
[2018-11-20] MEDS ORDERED: PROPOFOL 20 ML ONE ×2 (07:58)
[2018-11-20] MEDS ORDERED: ROCURONIUM BROMIDE 50 MG/5 ML VIAL ONE ×2 (07:58→09:38)
[2018-11-20 07:59] LABS: HEMATOCRIT 30.5 % (32.4-45.2); HEMOGLOBIN 10.4 GM/dL (10.7-15.3); MCH 26.9 pg (25.7-33.7); MCHC 34.1 g/dl (32.0-36.0); MEAN CELL VOLUME 78.9 fl (80-96); MEAN PLT VOLUME 8.9 fl (7.5-11.1); PLATELET COUNT 275 K/MM3 (134-434); RBC 3.87 M/mm3 (3.60-5.2); RDW 18.6 % (11.6-15.6); WHITE BLOOD COUNT 6.1 K/mm3 (4.0-10.0)
[2018-11-20] MEDS ORDERED: LIDOCAINE HCL/PF 2% SDV 5ML VIAL ONE (07:59)
[2018-11-20] MEDS ORDERED: LACTATED RINGERS SOLUTION 1,000 ML IV SCH (08:00)
[2018-11-20] MEDS ORDERED: HYDROmorphone *PCA* 10MG/50ML DISP.SYRIN PCA SCH (08:00)
[2018-11-20 08:13] LABS: ALBUMIN 2.9 g/dl (3.4-5.0); ALK PHOS 86 U/L (45-117); ANION GAP 11 MMOL/L (8-16); BILIRUBIN,TOTAL 1.1 mg/dL (0.2-1); BLOOD UREA NITROGEN 15 mg/dL (7-18); CALCIUM 8.7 mg/dL (8.5-10.1); CHLORIDE 102 mmol/L (98-107); CO2 25 mmol/L (21-32); CREATININE 1.3 mg/dL (0.55-1.3); GLUCOSE,RANDOM 219 mg/dL (74-106); SGOT/AST 13 U/L (15-37); SGPT/ALT 13 U/L (13-61); SODIUM 138 mmol/L (136-145); TOT PROT 6.8 g/dl (6.4-8.2)
[2018-11-20] MEDS ORDERED: DEXAMETHASONE SOD PHOSPHATE 4 MG/1 ML VIAL ONE ×2 (08:44→10:31)
[2018-11-20] MEDS ORDERED: hydrALAZINE HCL 20 MG/ML VIAL ONE (08:57)
[2018-11-20] MEDS ORDERED: METOPROLOL TARTRATE 5 MG/5 ML VIAL ONE ×2 (09:38→11:15)
[2018-11-20] MEDS ORDERED: PIPERACILLIN/TAZOBACTAM 2.25 GM VIAL IVPB ONE ×2 (09:55)
[2018-11-20] MEDS ORDERED: NEOSTIGMINE METHYLSULFATE 0.5 MG/ML - 10 ML MDV ONE ×3 (10:36)
[2018-11-20] MEDS ORDERED: GLYCOPYRROLATE 0.2 MG/1 ML VIAL ONE (10:36)
[2018-11-20] MEDS ORDERED: BUPIVACAINE HCL/PF 0.5% (5MG/ML) 10 ML VIAL ONE (10:41)
[2018-11-20] MEDS ORDERED: KETOROLAC TROMETHAMINE 30 MG/1 ML VIAL ONE (10:50)
[2018-11-20] MEDS ORDERED: BUPIVACAINE HCL/PF (5 MG/ML) 30 ML VIAL IJ ONE (11:17)
[2018-11-20] MEDS ORDERED: HYDROmorphone *PCA* 10MG/50ML DISP.SYRIN PCA ONE (11:32)
--- NOTE | 2018-11-20 11:37 | OP ---
Operative Note - Note: Operative Date: 11/20/18 Pre-Operative Diagnosis: small bowel obstruction, incisional hernia Operation: laparotomy with extensive lysis of adhesions (2 hours), suture repair of right upper quadrant incisional hernia Findings: mesh (Goretex?) in midline - partially divided, left in situ; matted loops of small bowel in right abdomen, incisional hernia RUQ and right lateral abdomen, evidence of previous Jackelin-en-Y bowel reconstruction with dilation of stagnant loop; tiny enterotomy made in proximal SB in RUQ, repaired with sutures with minimal leakage; no resection performed Post-Operative Diagnosis: Other (same as preop with stagnant Jackelin-en-Y bowel loop in RUQ, extensive intestinal adhesions) Surgeon: Neal Rodney Floating Derrick Operator: Jace Piña Anesthesiologist/DIESEL MECHANIC CONSTRUCTION: Chuckie Nguyen Anesthesia: General, Local (20ML 0.5% marcaine) Specimens Removed: no resection Estimated Blood Loss (mls): 100 Drains & Tubes with Location: preop Menon NGT; Salas placed and left Drains, Volume Out (mls): 500 (UOP) Fluid Volume Replaced (mls): 1,800 (crystalloid) Operative Report Dictated: Yes
[2018-11-20] MEDS ORDERED: LABETALOL HCL 5 MG/1 ML (100MG/20 ML VIAL) IVPUSH ONE ×2 (12:38→13:00)
[2018-11-20] MEDS: LACTATED RINGERS SOLUTION 1,000 ML IV SCH ×2 (13:00→23:31)
[2018-11-20] MEDS ORDERED: hydrALAZINE HCL 20 MG/ML VIAL IVPUSH ONE (13:20)
[2018-11-20] MEDS ORDERED: PT OWN MED DRAWER 7, Y5N ONE (13:47)
--- NOTE | 2018-11-20 13:58 | PN ---
Progress Note, Physician Chief Complaint: patient seen and examined in pacu s/p surgery sleeping green marketer pump in place - Current Medication List Current Medications: Active Medications Acetaminophen (Ofirmev Injection -) 1,000 mg IVPB Q6H PRN PRN Reason: PAIN LEVEL 6-10 Dexamethasone Sodium Phosphate (Decadron Injection -) 4 mg IVPUSH ONCE PRN PRN Reason: NAUSEA AND/OR VOMITING Diphenhydramine HCl (Benadryl Injection -) 12.5 mg IVPUSH ONCE PRN PRN Reason: FOR ITCHING Heparin Sodium (Porcine) (Heparin -) 5,000 unit SQ TID [facility] Hydromorphone HCl (Dilaudid Supervisor Rose Grading -) 10 mg [place]AN [place] [facility]; Protocol Stop: 11/27/18 07:49 Lactated Ringer's (Lactated Ringers Solution) 1,000 mls @ 125 mls/hr IV ASDIR [facility] Last Admin: 11/20/18 13:00 Dose: 0 mls Piperacillin Sod/Tazobactam (Sod 3.375 gm/ Dextrose) 50 mls @ 100 mls/hr IVPB Q8H-IV [facility]; Protocol Insulin Aspart (Novolog Vial Sliding Scale -) 1 vial SQ ACHS [facility]; Protocol Ondansetron HCl (Zofran Injection) 4 mg IVPUSH Q4H PRN PRN Reason: NAUSEA AND/OR VOMITING Promethazine HCl (Phenergan Injection -) 12.5 mg IVPB Q6H PRN PRN Reason: NAUSEA AND/OR VOMITING Stop: 11/21/18 12:07 - Objective Vital Signs: Vital Signs Temperature 99.1 F 11/20/18 11:25 Pulse Rate 55 L 11/20/18 13:25 Respiratory Rate 18 11/20/18 13:25 Blood Pressure 180/66 H 11/20/18 13:25 O2 Sat by Pulse Oximetry (%) 100 11/20/18 13:25 Constitutional: Yes: Calm HENT: Yes: Other (ngtube) Cardiovascular: Yes: Regular Rate and Rhythm, S1, S2 Respiratory: Yes: CTA Bilaterally Gastrointestinal: Yes: Soft, Hypoactive Bowel Sounds, Other (midline bandage) Edema: No Labs: CBC, BMP 11/20/18 07:25 11/20/18 07:25 INR, PTT INR 1.19 (0.82-1.09) 11/16/18 14:35 Problem List - Problems (1) Abdominal pain Assessment/Plan: Note: Operative Date: 11/20/18 Pre-Operative Diagnosis: small bowel obstruction, incisional hernia Operation: laparotomy with extensive lysis of adhesions (2 hours), suture repair of right upper quadrant incisional hernia iv zosyn Findings: mesh (Goretex?) in midline - partially divided, left in situ; matted loops of small bowel in right abdomen, incisional hernia RUQ and right lateral abdomen, evidence of previous Jackelin-en-Y bowel reconstruction with dilation of stagnant loop; tiny enterotomy made in proximal SB in RUQ, repaired with sutures with minimal leakage; no resection performed Post-Operative Diagnosis: Other (same as preop with stagnant Jackelin-en-Y bowel loop in RUQ, extensive intestinal adhesions) Surgeon: Neal Rodney Cad Librarian: Jace Piña Anesthesiologist/PLUG SHAPER HAND: Chuckie Nguyen Anesthesia: General, Local (20ML 0.5% marcaine) Specimens Removed: no resection Estimated Blood Loss (mls): 100 Drains & Tubes with Location: preop [place] NGT; Salas placed and left Drains, Volume Out (mls): 500 (UOP) Fluid Volume Replaced (mls): 1,800 (crystalloid) Operative Report Dictated: Yes dvt ppx ng tube pain control iv abx iv potassium ordered Code(s): R10.9 - UNSPECIFIED ABDOMINAL PAIN Qualifiers: Abdominal location: unspecified location Qualified Code(s): R10.9 - Unspecified abdominal pain
[2018-11-20] MEDS: HYDROmorphone *PCA* 10MG/50ML DISP.SYRIN PCA SCH (15:24)
[2018-11-20] MEDS ORDERED: INSULIN (NOVOLOG) ASPART 100 UNITS/ML 10ML VIAL ONE ×2 (16:52→22:12)
[2018-11-21] MEDS: PIPERACILLIN/TAZOB 3.375 GM 3.375 GM in DEXTROSE 5%-WATER - 50 ML IVPB SCH ×4 (01:45→18:47)
[2018-11-21] MEDS ORDERED: INSULIN (NOVOLOG) ASPART 100 UNITS/ML 10ML VIAL ONE (06:24)
[2018-11-21] MEDS: INSULIN SLIDING SCALE (NOVOLOG) 1 VIAL SQ SCH ×5 (06:25→21:21)
[2018-11-21] MEDS: HEPARIN NA (PORCINE) 5,000 UNITS/ML 1ML VIAL SQ SCH ×3 (06:26→21:18)
[2018-11-21] MEDS ORDERED: PIPERACILLIN/TAZOBACTAM 3.375 GM VIAL IVPB ONE ×2 (10:35→18:16)
[2018-11-21] MEDS ORDERED: DEXTROSE 5%-WATER - 50 ML IVPB ONE ×2 (10:35→18:16)
[2018-11-21] MEDS: LACTATED RINGERS SOLUTION 1,000 ML IV SCH ×2 (11:07→18:46)
--- NOTE | 2018-11-21 12:57 | PN ---
Progress Note, Physician Chief Complaint: Abdominal pain SBP vs Cecal Volvulus History of Present Illness: Previous notes and events reviewed awake and alert NAD NGT to LCS POD #1 laparotomy with lysis of adhesions, suture repair of RUQ incisional hernia denies BM or passing flatus - Current Medication List Current Medications: Active Medications Acetaminophen (Ofirmev Injection -) 1,000 mg IVPB Q6H PRN PRN Reason: PAIN LEVEL 6-10 Dexamethasone Sodium Phosphate (Decadron Injection -) 4 mg IVPUSH ONCE PRN PRN Reason: NAUSEA AND/OR VOMITING Diphenhydramine HCl (Benadryl Injection -) 12.5 mg IVPUSH ONCE PRN PRN Reason: FOR ITCHING Last Admin: 11/20/18 13:44 Dose: 12.5 mg Heparin Sodium (Porcine) (Heparin -) 5,000 unit SQ TID [facility] Last Admin: 11/21/18 06:26 Dose: 5,000 unit Hydromorphone HCl (Dilaudid Meters Superintendent -) 10 mg ORDNANCE HANDLER ORDNANCE HANDLER [facility]; Protocol Stop: 11/27/18 07:49 Last Admin: 11/20/18 15:24 Dose: Not Given Lactated Ringer's (Lactated Ringers Solution) 1,000 mls @ 125 mls/hr IV ASDIR [facility] Last Admin: 11/21/18 11:07 Dose: 125 mls/hr Piperacillin Sod/Tazobactam (Sod 3.375 gm/ Dextrose) 50 mls @ 100 mls/hr IVPB Q8H-IV [facility]; Protocol Last Admin: 11/21/18 11:01 Dose: 100 mls/hr Insulin Aspart (Novolog Vial Sliding Scale -) 1 vial SQ ACHS [facility]; Protocol Last Admin: 11/21/18 11:06 Dose: 6 units Ondansetron HCl (Zofran Injection) 4 mg IVPUSH Q4H PRN PRN Reason: NAUSEA AND/OR VOMITING - Objective Vital Signs: Vital Signs Temperature 98.6 F 11/21/18 09:00 Pulse Rate 77 11/21/18 09:00 Respiratory Rate 18 11/21/18 09:00 Blood Pressure 149/68 11/21/18 09:00 O2 Sat by Pulse Oximetry (%) 100 11/20/18 21:00 Constitutional: Yes: Calm, Mild Distress Eyes: Yes: Conjunctiva Clear HENT: Yes: Atraumatic, Other (NGT) Cardiovascular: Yes: Regular Rate and Rhythm Respiratory: Yes: Regular, CTA Bilaterally Gastrointestinal: Yes: Hypoactive Bowel Sounds, Tenderness (diffuse) Musculoskeletal: Yes: Muscle Weakness Extremities: Yes: WNL Edema: No Wound/Incision: Yes: Dressing Dry and Intact Neurological: Yes: Alert, Oriented Psychiatric: Yes: Alert, Oriented Labs: CBC, BMP 11/20/18 07:25 11/20/18 07:25 INR, PTT INR 1.19 (0.82-1.09) 11/16/18 14:35 Microbiology 11/17/18 15:15 Blood - Peripheral Venous Blood Culture - Preliminary NO GROWTH OBTAINED AFTER 72 HOURS, INCUBATION TO CONTINUE FOR 2 DAYS. 11/17/18 15:45 Blood - Peripheral Venous Blood Culture - Preliminary NO GROWTH OBTAINED AFTER 72 HOURS, INCUBATION TO CONTINUE FOR 2 DAYS. 11/16/18 22:45 Urine - Urine Clean Catch Urine Culture - Final NO GROWTH OBTAINED Problem List - Problems (1) Abdominal pain Assessment/Plan: - -Abdomen and Pelvic CT scan shows abnormal cecal position but no evidence of volvulus, abnormal ileal loops possibly representing enteritis -Meckel scan shows no scintigraphic evidence of Meckel diverticulum containing ectopic gastric mucosa -POD #1 laparatomy with extensive lysis of adhesion and suture repair of RUQ incisional hernia -pain management with ORDNANCE HANDLER pump -NPO -continue with IV zosyn -IV hydration -surgery on board -GI on board -zofran prn for nausea Code(s): R10.9 - UNSPECIFIED ABDOMINAL PAIN Qualifiers: Abdominal location: unspecified location Qualified Code(s): R10.9 - Unspecified abdominal pain (2) CKD (chronic kidney disease) stage 3, GFR 30-59 ml/min Assessment/Plan: -improved -BUN/Cr 15/1.3 -monitor renal function daily Code(s): N18.3 - CHRONIC KIDNEY DISEASE, STAGE 3 (MODERATE) (3) Diabetes mellitus type 2 in obese Assessment/Plan: -BGM ACHS -ISS -HgA1c 8.9% Code(s): E11.69 - TYPE 2 DIABETES MELLITUS WITH OTHER SPECIFIED COMPLICATION; E66.9 - OBESITY, UNSPECIFIED (4) Hypertension Assessment/Plan: -continue labatolol IVP Code(s): I10 - ESSENTIAL (PRIMARY) HYPERTENSION Qualifiers: Hypertension type: essential hypertension Qualified Code(s): I10 - Essential (primary) hypertension (5) Hydronephrosis, left Assessment/Plan: -L ureteral stent, previously followed by urologist in [place] -will consult uro if voiding problems develop Code(s): N13.30 - UNSPECIFIED HYDRONEPHROSIS Assessment/Plan see problem list dvt ppx
[2018-11-21 13:47] LABS: BASO % 0.4 % (0-2.0); EOS % 0.8 % (0-4.5); HEMATOCRIT 31.3 % (32.4-45.2); HEMOGLOBIN 9.9 GM/dL (10.7-15.3); LYMPH % 5.5 % (8-40); MCHC 31.7 g/dl (32.0-36.0); MEAN CELL VOLUME 79.1 fl (80-96); MEAN PLT VOLUME 8.3 fl (7.5-11.1); MONO % 11.8 % (3.8-10.2); NEUT % 81.5 % (42.8-82.8); PLATELET COUNT 246 K/MM3 (134-434); RBC 3.96 M/mm3 (3.60-5.2); RDW 18.9 % (11.6-15.6); WHITE BLOOD COUNT 10.5 K/mm3 (4.0-10.0)
[2018-11-21 14:13] LABS: ANION GAP 8 MMOL/L (8-16); BLOOD UREA NITROGEN 28 mg/dL (7-18); CHLORIDE 104 mmol/L (98-107); CO2 28 mmol/L (21-32); CREATININE 2.8 mg/dL (0.55-1.3); GLUCOSE,RANDOM 270 mg/dL (74-106); MAGNESIUM 1.8 mg/dL (1.8-2.4); PHOSPHOROUS 5.2 mg/dL (2.5-4.9); POTASSIUM 3.9 mmol/L (3.5-5.1); SODIUM 140 mmol/L (136-145)
[2018-11-21] MEDS: HYDROmorphone *PCA* 10MG/50ML DISP.SYRIN PCA SCH (15:56)
[2018-11-21] MEDS ORDERED: SODIUM CHLORIDE 1,000 ML IV STA (16:23)
--- NOTE | 2018-11-21 16:29 | PN ---
Progress Note, Physician History of Present Illness: AWAKE, ALERT IN BED POST OP LAPAROTOMY/ PAN NO C/O ABDOMINAL PAIN NO F/C - Current Medication List Current Medications: Active Medications Acetaminophen (Ofirmev Injection -) 1,000 mg IVPB Q6H PRN PRN Reason: PAIN LEVEL 6-10 Dexamethasone Sodium Phosphate (Decadron Injection -) 4 mg IVPUSH ONCE PRN PRN Reason: NAUSEA AND/OR VOMITING Diphenhydramine HCl (Benadryl Injection -) 12.5 mg IVPUSH ONCE PRN PRN Reason: FOR ITCHING Last Admin: 11/20/18 13:44 Dose: 12.5 mg Heparin Sodium (Porcine) (Heparin -) 5,000 unit SQ TID [facility] Last Admin: 11/21/18 15:12 Dose: 5,000 unit Hydromorphone HCl (Dilaudid Newspaper Carrier -) 10 mg BRICK AND TILE MAKING MACHINE OPERATOR BRICK AND TILE MAKING MACHINE OPERATOR BURTON; Protocol Stop: 11/27/18 07:49 Last Admin: 11/21/18 15:56 Dose: Not Given Piperacillin Sod/Tazobactam (Sod 3.375 gm/ Dextrose) 50 mls @ 100 mls/hr IVPB Q8H-IV [facility]; Protocol Last Admin: 11/21/18 11:01 Dose: 100 mls/hr Sodium Chloride (Normal Saline -) 1,000 mls @ 1,000 mls/hr IV ASDIR STA Stop: 11/21/18 17:22 Lactated Ringer's (Lactated Ringers Solution) 1,000 mls @ 150 mls/hr IV ASDIR B[facility] Insulin Aspart (Novolog Vial Sliding Scale -) 1 vial SQ ACHS [facility]; Protocol Last Admin: 11/21/18 11:06 Dose: 6 units Ondansetron HCl (Zofran Injection) 4 mg IVPUSH Q4H PRN PRN Reason: NAUSEA AND/OR VOMITING - Objective Vital Signs: Vital Signs Temperature 98.6 F 11/21/18 09:00 Pulse Rate 77 11/21/18 09:00 Respiratory Rate 18 11/21/18 09:00 Blood Pressure 149/68 11/21/18 09:00 O2 Sat by Pulse Oximetry (%) 100 11/20/18 21:00 Constitutional: Yes: No Distress Cardiovascular: Yes: Regular Rate and Rhythm, S1, S2 Respiratory: Yes: CTA Bilaterally Gastrointestinal: Yes: Normal Bowel Sounds, Soft Labs: CBC, BMP 11/21/18 13:33 11/21/18 13:33 INR, PTT INR 1.19 (0.82-1.09) 11/16/18 14:35 Assessment/Plan POST OP LAPAROTOMY/ PAN RECENT UTI/ URETERAL STENT PLACEMENT CONTINUE EMPIRIC ZOSYN
--- NOTE | 2018-11-21 19:19 | PN ---
Progress Note, Physician History of Present Illness: Postop from extensive lysis of intestinal adhesions for developing SBO, with suture repair of small RUQ incisional hernia from inside, with findings of previous intestinal reconstruction, likely hepaticojejunostomy, done years ago after post-cholecystectomy complications per pt. Pt seen and examined in bed. She states pain is controlled with EDGE DYER. Not out of bed yet, no flatus yet. NG with 150ml out since last night. Salas with 200ml overnight, 300ml/8hrs till this afternoon, yellow. No specific complaints, but would like to get up out of bed and walking soon. - Current Medication List Current Medications: Active Medications Acetaminophen (Ofirmev Injection -) 1,000 mg IVPB Q6H PRN PRN Reason: PAIN LEVEL 6-10 Dexamethasone Sodium Phosphate (Decadron Injection -) 4 mg IVPUSH ONCE PRN PRN Reason: NAUSEA AND/OR VOMITING Diphenhydramine HCl (Benadryl Injection -) 12.5 mg IVPUSH ONCE PRN PRN Reason: FOR ITCHING Last Admin: 11/20/18 13:44 Dose: 12.5 mg Heparin Sodium (Porcine) (Heparin -) 5,000 unit SQ TID B[facility] Last Admin: 11/21/18 15:12 Dose: 5,000 unit Hydromorphone HCl (Dilaudid Paintings Conservator -) 10 mg EDGE DYER EDGE DYER B[facility]; Protocol Stop: 11/27/18 07:49 Last Admin: 11/21/18 15:56 Dose: Not Given Piperacillin Sod/Tazobactam (Sod 3.375 gm/ Dextrose) 50 mls @ 100 mls/hr IVPB Q8H-IV [facility]; Protocol Last Admin: 11/21/18 18:47 Dose: 100 mls/hr Lactated Ringer's (Lactated Ringers Solution) 1,000 mls @ 150 mls/hr IV ASDIR B[facility] Last Admin: 11/21/18 18:46 Dose: 150 mls/hr Insulin Aspart (Novolog Vial Sliding Scale -) 1 vial SQ ACHS [facility]; Protocol Last Admin: 11/21/18 17:55 Dose: 6 units Ondansetron HCl (Zofran Injection) 4 mg IVPUSH Q4H PRN PRN Reason: NAUSEA AND/OR VOMITING - Objective Vital Signs: Vital Signs Temperature 98.3 F 11/21/18 17:08 Pulse Rate 84 11/21/18 17:08 Respiratory Rate 20 11/21/18 17:08 Blood Pressure 105/58 L 11/21/18 17:08 O2 Sat by Pulse Oximetry (%) 100 11/20/18 21:00 Constitutional: Yes: No Distress, Calm, Obese Eyes: Yes: Conjunctiva Clear, EOM Intact HENT: Yes: Atraumatic, Normocephalic, Other (NGT in place) Gastrointestinal: Yes: Soft, Abdomen, Obese, Hypoactive Bowel Sounds, Tenderness (upper abdominal and incisional, appropriate postop) Genitourinary: Yes: Salas Present, Oliguria. No: Hematuria Extremities: No: Cool, Cyanosis Integumentary: Yes: Incision (midline with dressing). No: Jaundice, Rash Wound/Incision: Yes: Dressing Dry and Intact. No: Dressing Removed Neurological: Yes: Alert, Oriented Labs: CBC, BMP 11/21/18 13:33 11/21/18 13:33 BUN/Cr up Problem List - Problems (1) Intestinal adhesions with partial obstruction Assessment/Plan: POD1 s/p extensive lysis of adhesions and RUQ incisional hernia repair s/p likely hepaticojejunostomy in past with intestinal reconstruction - with dilated/stagnant loop of anastomotic area had small enterotomy repaired in proximal SB with small yellow fluid leakage, minimal contamination doing ok postop relatively dry - fluid bolus and increased fluids ordered trend labs continue NPO/NGT/IVF await resumption of small bowel function, return of full bowel sounds pain well-controlled with EDGE DYER and IV tylenol available for [facility] prn postop antibiotics to continue for now, ID on board incision dressed, will remove tomorrow OOB to chair as able, will ambulate soon will need PT Code(s): K56.51 - INTESTINAL ADHESIONS [BANDS], WITH PARTIAL OBSTRUCTION (2) Incisional hernia, without obstruction or gangrene Code(s): K43.2 - INCISIONAL HERNIA WITHOUT OBSTRUCTION OR GANGRENE (3) Hypertension Assessment/Plan: managed with IV meds prn Code(s): I10 - ESSENTIAL (PRIMARY) HYPERTENSION Qualifiers: Hypertension type: essential hypertension Qualified Code(s): I10 - Essential (primary) hypertension (4) Diabetes mellitus type 2 in obese Assessment/Plan: maintain glucose control FS with SSI coveraqe Code(s): E11.69 - TYPE 2 DIABETES MELLITUS WITH OTHER SPECIFIED COMPLICATION; E66.9 - OBESITY, UNSPECIFIED (5) S/P ureteral stent placement Code(s): Z96.0 - PRESENCE OF UROGENITAL IMPLANTS (6) Gout Assessment/Plan: home med held for npo Code(s): M10.9 - GOUT, UNSPECIFIED Qualifiers: Gout site: toe Gout etiology: unspecified cause Chronicity: unspecified Laterality: unspecified laterality Qualified Code(s): M10.9 - Gout, unspecified (7) CKD (chronic kidney disease) stage 3, GFR 30-59 ml/min Assessment/Plan: BUN/Cr up, UOP low IV fluid bolus ordered and fluids increased Code(s): N18.3 - CHRONIC KIDNEY DISEASE, STAGE 3 (MODERATE)
--- NOTE | 2018-11-21 21:55 | PN.GI ---
GI Progress Note Subjective: GI NOte: Surgical efforts appreciated. Tatiana is resting comfortably. The previous surgery is likely a hepaticojejnostomy done by Dr Alexander for postcholecystectomy jaundice due to either bile duct transection or retained stone - Objective Vital Signs: Vital Signs Temperature 100.2 F H 11/21/18 20:54 Pulse Rate 85 11/21/18 20:54 Respiratory Rate 20 11/21/18 20:54 Blood Pressure 166/75 11/21/18 20:54 O2 Sat by Pulse Oximetry (%) 100 11/20/18 21:00 Constitutional: No Distress Gastrointestinal Inspection: Yes: Other (bandages left in place) ...Auscultate: Yes: Hypoactive Bowel Sounds Labs: CBC, BMP 11/21/18 13:33 11/21/18 13:33 INR, PTT INR 1.19 (0.82-1.09) 11/16/18 14:35 Assessment/Plan Impression: Abdominal pain due to bowel obstruction in setting of adhesions, hernia and previous hepaticojejunostomy Plan: As per surgical team Problem List - Problems (1) Small bowel obstruction Assessment/Plan: resolved by surgery Code(s): K56.609 - UNSP INTESTNL OBST, UNSP TO PARTIAL VERSUS COMPLETE OBST (2) Ileitis Code(s): K52.9 - NONINFECTIVE GASTROENTERITIS AND COLITIS, UNSPECIFIED (3) Diverticula of colon Code(s): K57.30 - DVRTCLOS OF LG INT W/O PERFORATION OR ABSCESS W/O BLEEDING (4) Constipation Code(s): K59.00 - CONSTIPATION, UNSPECIFIED (5) Adrenal adenoma Code(s): D35.00 - BENIGN NEOPLASM OF UNSPECIFIED ADRENAL GLAND (6) History of cholecystectomy Code(s): Z90.49 - ACQUIRED ABSENCE OF OTHER SPECIFIED PARTS OF DIGESTIVE TRACT (7) History of common bile duct surgery Code(s): Z98.890 - OTHER SPECIFIED POSTPROCEDURAL STATES (8) Pneumobilia Code(s): K83.8 - OTHER SPECIFIED DISEASES OF BILIARY TRACT (9) Abdominal pain Code(s): R10.9 - UNSPECIFIED ABDOMINAL PAIN Qualifiers: Abdominal location: unspecified location Qualified Code(s): R10.9 - Unspecified abdominal pain (10) Diabetes mellitus type 2 in obese Code(s): E11.69 - TYPE 2 DIABETES MELLITUS WITH OTHER SPECIFIED COMPLICATION; E66.9 - OBESITY, UNSPECIFIED (11) Gout Code(s): M10.9 - GOUT, UNSPECIFIED Qualifiers: Gout site: toe Gout etiology: unspecified cause Chronicity: unspecified Laterality: unspecified laterality Qualified Code(s): M10.9 - Gout, unspecified (12) S/P ureteral stent placement Code(s): Z96.0 - PRESENCE OF UROGENITAL IMPLANTS (13) Hydronephrosis, left Code(s): N13.30 - UNSPECIFIED HYDRONEPHROSIS
[2018-11-22] MEDS: diphenhydrAMINE HCL 25 MG CAPSULE (FP) PO ONE ×2 (00:56→01:06)
[2018-11-22] MEDS ORDERED: PIPERACILLIN/TAZOBACTAM 3.375 GM VIAL IVPB ONE ×3 (01:10→18:04)
[2018-11-22] MEDS ORDERED: DEXTROSE 5%-WATER - 50 ML IVPB ONE ×3 (01:10→18:05)
[2018-11-22] MEDS: PIPERACILLIN/TAZOB 3.375 GM 3.375 GM in DEXTROSE 5%-WATER - 50 ML IVPB SCH ×3 (01:14→18:09)
[2018-11-22] MEDS: HYDROmorphone *PCA* 10MG/50ML DISP.SYRIN PCA SCH (03:12)
[2018-11-22] MEDS: HEPARIN NA (PORCINE) 5,000 UNITS/ML 1ML VIAL SQ SCH ×3 (05:44→22:01)
[2018-11-22] MEDS: INSULIN SLIDING SCALE (NOVOLOG) 1 VIAL SQ SCH ×4 (06:20→22:02)
[2018-11-22 07:57] LABS: HEMOGLOBIN 9.5 GM/dL (10.7-15.3); MCH 25.1 pg (25.7-33.7); MCHC 31.7 g/dl (32.0-36.0); MEAN CELL VOLUME 79.2 fl (80-96); MEAN PLT VOLUME 9.2 fl (7.5-11.1); PLATELET COUNT 225 K/MM3 (134-434); RBC 3.79 M/mm3 (3.60-5.2); RDW 18.4 % (11.6-15.6); WHITE BLOOD COUNT 11.1 K/mm3 (4.0-10.0)
[2018-11-22 08:27] LABS: ALBUMIN 2.1 g/dl (3.4-5.0); ALK PHOS 80 U/L (45-117); ANION GAP 9 MMOL/L (8-16); BILIRUBIN,TOTAL 1.1 mg/dL (0.2-1); BLOOD UREA NITROGEN 24 mg/dL (7-18); CALCIUM 8.5 mg/dL (8.5-10.1); CHLORIDE 107 mmol/L (98-107); CO2 27 mmol/L (21-32); CREATININE 1.9 mg/dL (0.55-1.3); GLUCOSE,RANDOM 227 mg/dL (74-106); POTASSIUM 3.5 mmol/L (3.5-5.1); SGOT/AST 11 U/L (15-37); SGPT/ALT 13 U/L (13-61); SODIUM 142 mmol/L (136-145); TOT PROT 5.9 g/dl (6.4-8.2)
--- NOTE | 2018-11-22 14:27 | PN ---
Progress Note (short form) - Note Progress Note: Pain management note: Patient with UMBRELLA MENDER s/p ex lap post op day two. WIll continue UMBRELLA MENDER until NGT comes out and patient is tolerating PO. Dept of anesthesiology will continue to follow.
[2018-11-22] MEDS: METOPROLOL TARTRATE 5 MG/5 ML VIAL IVPUSH PRN ×2 (15:08→18:44)
[2018-11-22] MEDS ORDERED: dilTIAZem HCL 50 MG/10 ML - 10 ML VIAL IVPB ONE (16:00)
--- NOTE | 2018-11-22 16:02 | PN ---
Progress Note, Physician History of Present Illness: POD2 s/p extensive lysis of intestinal adhesions for developing SBO, with suture repair of small RUQ incisional hernia from inside, with findings of previous Jackelin-en-Y reconstruction, likely with hepaticojejunostomy, done years ago after post-cholecystectomy complications. Pt had been sitting up in chair, feeling ok, eager to walk later. Pain is controlled with intermittent use of Dilaudid CIRCUS TRAIN SUPERVISOR, pt reports minimal pain. Salas with 600ml out from 6a - 2p, another ~300ml in bag now, clear/light yellow. [place] NG with small volume out since yesterday, intact on intermittent suction. Primary team BUSINESS INTELLIGENCE ETL DEVELOPER examined her once back in bed and noted higher, irregular heart rate and obtained EKG showing afib with RVR, HR in 130s. She has just had 5mg IVPB metoprolol, and HR dipped into 120s, but is still bouncing between 118 and 133. She is seen and examined in bed. She reports no subjective acute symptoms - denies palpitations, lightheadedness/dizziness, nausea, overt pain, "I feel fine." Satting upper 90s on NC O2 3L (had been 95% on RA in chair per nurse). BP was 135/99, now 135/90. She appears comfortable. Denies flatus or BM yet postop. No nausea. Had T99.9 overnight but is afebrile today. - Current Medication List Current Medications: Active Medications Acetaminophen (Ofirmev Injection -) 1,000 mg IVPB Q6H PRN PRN Reason: PAIN LEVEL 6-10 Dexamethasone Sodium Phosphate (Decadron Injection -) 4 mg IVPUSH ONCE PRN PRN Reason: NAUSEA AND/OR VOMITING Diltiazem HCl (Cardizem Injection -) 10 mg IVPUSH ONCE ONE Stop: 11/22/18 15:52 Diphenhydramine HCl (Benadryl Injection -) 12.5 mg IVPUSH ONCE PRN PRN Reason: FOR ITCHING Last Admin: 11/20/18 13:44 Dose: 12.5 mg Heparin Sodium (Porcine) (Heparin -) 5,000 unit SQ TID [facility] Last Admin: 11/22/18 13:41 Dose: 5,000 unit Hydromorphone HCl (Dilaudid Arc Welder Apprentice -) 10 mg CIRCUS TRAIN SUPERVISOR CIRCUS TRAIN SUPERVISOR [facility]; Protocol Stop: 11/27/18 07:49 Last Admin: 11/22/18 03:12 Dose: 10 mg Piperacillin Sod/Tazobactam (Sod 3.375 gm/ Dextrose) 50 mls @ 100 mls/hr IVPB Q8H-IV [facility]; Protocol Last Admin: 11/22/18 10:24 Dose: 100 mls/hr Lactated Ringer's (Lactated Ringers Solution) 1,000 mls @ 150 mls/hr IV ASDIR [facility] Last Admin: 11/21/18 18:46 Dose: 150 mls/hr Insulin Aspart (Novolog Vial Sliding Scale -) 1 vial SQ ACHS [facility]; Protocol Last Admin: 11/22/18 12:25 Dose: 4 units Metoprolol Tartrate (Lopressor Injection -) 5 mg IVPUSH Q4H PRN PRN Reason: HYPERTENSION Last Admin: 11/22/18 15:08 Dose: 5 mg Ondansetron HCl (Zofran Injection) 4 mg IVPUSH Q4H PRN PRN Reason: NAUSEA AND/OR VOMITING - Objective Vital Signs: Vital Signs Temperature 98.5 F 11/22/18 14:00 Pulse Rate 139 H 11/22/18 15:08 Respiratory Rate 22 H 11/22/18 14:00 Blood Pressure 142/94 11/22/18 15:08 O2 Sat by Pulse Oximetry (%) 100 11/22/18 09:00 Vital Signs Period Temp Pulse Resp BP Sys/Pascual Pulse Ox Last 24 Hr 98.3 F-100.2 F 79-142 16-22 105-166/58-96 100-100 Constitutional: Yes: No Distress, Calm, Obese Eyes: Yes: Conjunctiva Clear, EOM Intact HENT: Yes: Atraumatic, Normocephalic, Other (NGT in place) Cardiovascular: Yes: Tachycardia, Pulse Irregular Respiratory: Yes: Regular, CTA Bilaterally, On Nasal O2. No: Rales, Rhonchi, SOB Gastrointestinal: Yes: Soft, Abdomen, Obese, Hypoactive Bowel Sounds (but present), Tenderness (minimal incisional only) Genitourinary: Yes: Salas Present (light/clear urine in tubing and bag, adequate volume). No: Hematuria Extremities: No: Cool, Cyanosis Integumentary: Yes: Incision (midline dressed). No: Jaundice, Rash Wound/Incision: Yes: Clean/Dry, Well Approximated, [place] Intact, Dressing Dry and Intact, Dressing Removed Neurological: Yes: Alert, Oriented Labs: CBC, BMP 11/22/18 06:30 11/22/18 06:30 CMP Sodium 142 mmol/L (136-145) 11/22/18 06:30 Potassium 3.5 mmol/L (3.5-5.1) 11/22/18 06:30 Chloride 107 mmol/L (98-107) 11/22/18 06:30 Carbon Dioxide 27 mmol/L (21-32) 11/22/18 06:30 Anion Gap 9 MMOL/L (8-16) 11/22/18 06:30 BUN 24 mg/dL (7-18) H 11/22/18 06:30 Creatinine 1.9 mg/dL (0.55-1.3) H 11/22/18 06:30 Creat Clearance w eGFR 25.84 (>60) 11/22/18 06:30 POC Glucometer 233 UNITS (80-120) 11/22/18 12:18 Random Glucose 227 mg/dL (74-106) H 11/22/18 06:30 Hemoglobin A1c % 8.9 % (4.2-6.3) H 11/17/18 06:40 Lactic Acid 1.3 mmol/L (0.4-2.0) 11/19/18 22:35 Calcium 8.5 mg/dL (8.5-10.1) 11/22/18 06:30 Phosphorus 5.2 mg/dL (2.5-4.9) H 11/21/18 13:33 Magnesium 1.8 mg/dL (1.8-2.4) 11/21/18 13:33 Total Bilirubin 1.1 mg/dL (0.2-1) H 11/22/18 06:30 AST 11 U/L (15-37) L 11/22/18 06:30 ALT 13 U/L (13-61) 11/22/18 06:30 Alkaline Phosphatase 80 U/L (45-117) 11/22/18 06:30 LD Total 152 U/L (84-246) 11/19/18 20:00 Troponin I 0.03 ng/ml (0.00-0.05) 11/16/18 14:18 C-Reactive Protein 1.9 MG/DL (0.00-0.3) H 11/19/18 07:00 Total Protein 5.9 g/dl (6.4-8.2) L 11/22/18 06:30 Albumin 2.1 g/dl (3.4-5.0) L 11/22/18 06:30 Total Amylase 50 U/L (25-115) 11/19/18 20:00 Lipase 154 U/L (73-393) 11/19/18 20:00 Microbiology 11/17/18 15:15 Blood Culture - Final Blood - Peripheral Venous NO GROWTH AFTER 5 DAYS INCUBATION 11/17/18 15:45 Blood Culture - Final Blood - Peripheral Venous NO GROWTH AFTER 5 DAYS INCUBATION Problem List - Problems (1) Intestinal adhesions with partial obstruction Assessment/Plan: POD2 s/p extensive lysis of adhesions and RUQ incisional hernia repair s/p likely hepaticojejunostomy in past with intestinal reconstruction - with dilated/stagnant loop of anastomotic area had small enterotomy repaired in proximal SB with small yellow fluid leakage, minimal contamination doing well from postop standpoint continue NPO/NGT/IVF await resumption of small bowel function, return of full bowel sounds pain well-controlled with CIRCUS TRAIN SUPERVISOR and IV tylenol available for [facility] prn postop antibiotics to continue for now, ID on board incision c/d/i with abhay Code(s): K56.51 - INTESTINAL ADHESIONS [BANDS], WITH PARTIAL OBSTRUCTION (2) Incisional hernia with obstruction, without gangrene Code(s): K43.0 - INCISIONAL HERNIA WITH OBSTRUCTION, WITHOUT GANGRENE (3) New onset a-fib Assessment/Plan: cardiology consulted - spoke with Dr. Mathew for Dr. Perry (pt's lead database administrator) - will also give cardizem 10mg now transferring to telemetry shortly when clean bed available HD stable, would hold full anticoagulation for now as still very fresh postop strict NPO for likely next few days... will need to manage with IV meds discussed with RAHEEM Olson primary team as well Code(s): I48.91 - UNSPECIFIED ATRIAL FIBRILLATION (4) Hypertension Code(s): I10 - ESSENTIAL (PRIMARY) HYPERTENSION Qualifiers: Hypertension type: essential hypertension Qualified Code(s): I10 - Essential (primary) hypertension (5) Diabetes mellitus type 2 in obese Code(s): E11.69 - TYPE 2 DIABETES MELLITUS WITH OTHER SPECIFIED COMPLICATION; E66.9 - OBESITY, UNSPECIFIED (6) S/P ureteral stent placement Code(s): Z96.0 - PRESENCE OF UROGENITAL IMPLANTS (7) Gout Code(s): M10.9 - GOUT, UNSPECIFIED Qualifiers: Gout site: toe Gout etiology: unspecified cause Chronicity: unspecified Laterality: unspecified laterality Qualified Code(s): M10.9 - Gout, unspecified (8) CKD (chronic kidney disease) stage 3, GFR 30-59 ml/min Code(s): N18.3 - CHRONIC KIDNEY DISEASE, STAGE 3 (MODERATE)
--- NOTE | 2018-11-22 16:09 | PN ---
Progress Note, Physician Chief Complaint: Abdominal pain SBP vs Cecal Volvulus History of Present Illness: Previous notes and events reviewed awake and alert NAD NGT to LCS POD #2 laparotomy with lysis of adhesions, suture repair of RUQ incisional hernia on examination patient noted to be tachycardic on auscultation, EKG ordered STAT and show A-fib with RVR - Current Medication List Current Medications: Active Medications Acetaminophen (Ofirmev Injection -) 1,000 mg IVPB Q6H PRN PRN Reason: PAIN LEVEL 6-10 Dexamethasone Sodium Phosphate (Decadron Injection -) 4 mg IVPUSH ONCE PRN PRN Reason: NAUSEA AND/OR VOMITING Diphenhydramine HCl (Benadryl Injection -) 12.5 mg IVPUSH ONCE PRN PRN Reason: FOR ITCHING Last Admin: 11/20/18 13:44 Dose: 12.5 mg Heparin Sodium (Porcine) (Heparin -) 5,000 unit SQ TID [facility] Last Admin: 11/22/18 13:41 Dose: 5,000 unit Hydromorphone HCl (Dilaudid Metal Smelter -) 10 mg MACHINE SPREADER MACHINE SPREADER [facility]; Protocol Stop: 11/27/18 07:49 Last Admin: 11/22/18 03:12 Dose: 10 mg Piperacillin Sod/Tazobactam (Sod 3.375 gm/ Dextrose) 50 mls @ 100 mls/hr IVPB Q8H-IV [facility]; Protocol Last Admin: 11/22/18 10:24 Dose: 100 mls/hr Lactated Ringer's (Lactated Ringers Solution) 1,000 mls @ 150 mls/hr IV ASDIR [facility] Last Admin: 11/21/18 18:46 Dose: 150 mls/hr Insulin Aspart (Novolog Vial Sliding Scale -) 1 vial SQ ACHS [facility]; Protocol Last Admin: 11/22/18 12:25 Dose: 4 units Metoprolol Tartrate (Lopressor Injection -) 5 mg IVPUSH Q4H PRN PRN Reason: HYPERTENSION Last Admin: 11/22/18 15:08 Dose: 5 mg Ondansetron HCl (Zofran Injection) 4 mg IVPUSH Q4H PRN PRN Reason: NAUSEA AND/OR VOMITING - Objective Vital Signs: Vital Signs Temperature 98.5 F 11/22/18 14:00 Pulse Rate 139 H 03/29/19 15:08 Respiratory Rate 22 H 11/22/18 14:00 Blood Pressure 142/94 11/22/18 15:08 O2 Sat by Pulse Oximetry (%) 100 11/22/18 09:00 Constitutional: Yes: No Distress, Calm Eyes: Yes: Conjunctiva Clear HENT: Yes: Atraumatic, Other (NGT) Cardiovascular: Yes: Tachycardia, Pulse Irregular Respiratory: Yes: Regular, CTA Bilaterally Gastrointestinal: Yes: Soft, Hypoactive Bowel Sounds, Tenderness (diffuse) Genitourinary: Yes: Salas Present Musculoskeletal: Yes: Muscle Weakness Extremities: Yes: WNL Edema: No Wound/Incision: Yes: Dressing Dry and Intact Neurological: Yes: Alert, Oriented Psychiatric: Yes: Alert, Oriented Labs: CBC, BMP 11/22/18 06:30 11/22/18 06:30 INR, PTT INR 1.19 (0.82-1.09) 11/16/18 14:35 Microbiology 11/17/18 15:15 Blood - Peripheral Venous Blood Culture - Final NO GROWTH AFTER 5 DAYS INCUBATION 11/17/18 15:45 Blood - Peripheral Venous Blood Culture - Final NO GROWTH AFTER 5 DAYS INCUBATION 11/16/18 22:45 Urine - Urine Clean Catch Urine Culture - Final NO GROWTH OBTAINED Problem List - Problems (1) Abdominal pain Assessment/Plan: - -Abdomen and Pelvic CT scan shows abnormal cecal position but no evidence of volvulus, abnormal ileal loops possibly representing enteritis -Meckel scan shows no scintigraphic evidence of Meckel diverticulum containing ectopic gastric mucosa -POD #2 laparatomy with extensive lysis of adhesion and suture repair of RUQ incisional hernia -pain management with MACHINE SPREADER pump -NPO -NGT to LCS--dark green bilious output noted -continue with IV zosyn -IV hydration -surgery on board -GI on board -zofran prn for nausea Code(s): R10.9 - UNSPECIFIED ABDOMINAL PAIN Qualifiers: Abdominal location: unspecified location Qualified Code(s): R10.9 - Unspecified abdominal pain (2) CKD (chronic kidney disease) stage 3, GFR 30-59 ml/min Assessment/Plan: -improved -BUN/Cr 24/1.9 -monitor renal function daily -renal consult -continue IV hydration Code(s): N18.3 - CHRONIC KIDNEY DISEASE, STAGE 3 (MODERATE) (3) Diabetes mellitus type 2 in obese Assessment/Plan: -BGM ACHS -ISS -HgA1c 8.9% Code(s): E11.69 - TYPE 2 DIABETES MELLITUS WITH OTHER SPECIFIED COMPLICATION; E66.9 - OBESITY, UNSPECIFIED (4) Hypertension Assessment/Plan: -continue lopressor Code(s): I10 - ESSENTIAL (PRIMARY) HYPERTENSION Qualifiers: Hypertension type: essential hypertension Qualified Code(s): I10 - Essential (primary) hypertension (5) Hydronephrosis, left Assessment/Plan: -L ureteral stent, previously followed by urologist in [place] -urology consult placed Code(s): N13.30 - UNSPECIFIED HYDRONEPHROSIS (6) Atrial fibrillation with RVR Assessment/Plan: -transfer to tele -lopressor 5mg IVPB -cardizem IVPB ordered -cardiology consult -continue with heparin SQ until able to start AC when cleared by surgery -NPO with NGT to LCS--continue with lopressor 5mg IV q4h PRN for HR >110bpm Code(s): I48.91 - UNSPECIFIED ATRIAL FIBRILLATION
--- NOTE | 2018-11-22 16:43 | CON.CARD ---
Consult Consult Specialty:: Cardiology Referred by:: Medicine Reason for Consultation:: afib - History of Present Illness Chief Complaint: afib History of Present Illness: 72F h/o CKD, HTN, DM, nephrolithiasis presented initially for UTI, abd pain, SBO. She is now POD 2 s/p laparotomy with lysis of adhesions, with new afib with RVR seen today. No chest pain, palps, dizziness, lightheadedness. Has NGT in, NPO. No prior hx afib. Sees Dr. Perry for cardio. HR 110s-130s, was on med surg now transferred to [facility]. Received metoprolol 5 mg IV x 1. cardizem IV ordered, not yet given. Currently feels well. - Past Medical History COMPLIANCE NURSE: No: Alzheimer's Cardio/Vascular: Yes: HTN, Hyperlipdemia Gastrointestinal: Yes: Diverticulosis, Other Hepatobiliary: Yes: Cholelithiasis, Choledocholithiasis (p bile duct surgery) Renal/: Yes: Renal Inusuff, Renal Calculi (possible), UTI (currently being treated as), Other (h/o pyelonephritis. 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) ...: No Infectious Disease: No: AIDS Psych: No: Addictions Musculoskeletal: Yes: Chronic low back pain (s/p low back surgery/disc issues in past) Rheumatology: Yes: Gout Endocrine: Yes: Diabetes Mellitus, Other (adrenal adenoma) - Past Surgical History Past Surgical History: Yes: Cholecystectomy, Colonoscopy, Hernia Repair (ventral /?umbilical with mesh years ago), Hysterectomy, Joint Replacement (bilateral knee total knee replacement), Laminectomy (Lumbar spine), Stent (left ureteral ( placed early this month in [place])), Upper Endoscopy - Alcohol/Substance Use Hx Alcohol Use: No History of Substance Use: reports: None - Smoking History Smoking history: Never smoked Have you smoked in the past 12 months: No Aproximately how many cigarettes per day: 0 - Social History Usual Living Arrangement: Alone ADL: Independent 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[employer], 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 History of Recent Travel: Yes ([place], [place] from June to 11/06/18) Home Medications - Allergies Allergies/Adverse Reactions: Allergies Allergy/AdvReac Type Severity Reaction Status Date / Time latex Allergy Severe Swelling Verified 11/16/18 13:55 insulin lispro [From Humalog] Allergy Intermediate Generalized Verified 13:55 rash and itching naproxen [From Naprosyn] Allergy Swelling Verified 11/16/18 13:55 oxaprozin [From Daypro] Allergy Swelling Verified 11/16/18 13:55 saxagliptin HCl Allergy leg edema Verified 11/16/18 13:55 [From Onglyza] latex Allergy Severe Uncoded 11/16/18 13:55 Mushrooms Allergy Uncoded 11/16/18 13:55 naproxen Allergy Uncoded 11/16/18 13:55 - Home Medications Home Medications: Ambulatory Orders Cholecalciferol (Vitamin D3) [Vitamin D3] 50 mcg PO DAILY 10/19/16 Insulin (Levemir) [Levemir Vial] 55 unit SQ ASDIR 10/19/16 Allopurinol [Zyloprim -] 100 mg PO DAILY 12/20/16 Insulin (LOG) Aspart [NovoLOG -] 7 units SQ DAILY 01/16/17 Aspirin [ASA -] 81 mg PO DAILY 03/19/18 Amlodipine Besylate 5 mg PO DAILY 11/16/18 Atorvastatin Calcium 10 mg PO DAILY 11/16/18 Chlorthalidone 25 mg PO DAILY 11/16/18 Ciprofloxacin [Cipro (Restricted To Id)] 500 mg PO BID 11/16/18 Potassium Citrate [Potassium Citrate ER] 30 meq PO BID 11/16/18 Family Disease History - Family Disease History Family Disease History: Other: Father ( 84), Mother (lived to 96) Other Family History: NO IBD or cancer, Pat aunt had DM Review of Systems - Review of Systems Constitutional: reports: No Symptoms Eyes: reports: No Symptoms HENT: reports: No Symptoms Neck: reports: No Symptoms Cardiovascular: reports: No Symptoms Respiratory: reports: No Symptoms Gastrointestinal: reports: No Symptoms Genitourinary: reports: No Symptoms Musculoskeletal: reports: No Symptoms Integumentary: reports: No Symptoms Neurological: reports: No Symptoms Endocrine: reports: No Symptoms Hematology/Lymphatic: reports: No Symptoms Psychiatric: reports: No Symptoms Vital Signs: Vital Signs Temperature 98.5 F 11/22/18 14:00 Pulse Rate 139 H 11/22/18 15:08 Respiratory Rate 22 H 11/22/18 14:00 Blood Pressure 142/94 11/22/18 15:08 O2 Sat by Pulse Oximetry (%) 100 11/22/18 09:00 Constitutional: Yes: Well Nourished, No Distress, Calm Eyes: Yes: Conjunctiva Clear, EOM Intact HENT: Yes: Atraumatic, Normocephalic Neck: Yes: Supple, Trachea Midline Respiratory: Yes: Regular, CTA Bilaterally Gastrointestinal: Yes: Tenderness Cardiovascular: Yes: Tachycardia, Pulse Irregular JVD: No Carotid Bruit: No PMI: Non-Displaced Heart Sounds: Yes: S1, S2 Murmur: No: Systolic Murmur Musculoskeletal: No: Back Pain Extremities: No: Cold Edema: No Peripheral Pulses WNL: Yes Peripheral Pulses: 2+ Left Doralis Pedis, 2+ Right Dorsalis Pedis Integumentary: No: Jaundice Neurological: Yes: Alert, Oriented Psychiatric: No: Agitated - Other Data Labs, Other Data: CBC, BMP 11/22/18 06:30 11/22/18 06:30 INR, PTT INR 1.19 (0.82-1.09) 11/16/18 14:35 Assessment/Plan EKG: initial sinus, LVH, first deg AVB EKG 11/22 afib with RVR rate 135 bpm echo 11/2016 LV mildly dilated, nl LV function, sigmoid septum, RV nl, LA severely dilated, RA mildly enlarged, mild MR, mild TR, at least mild pulm HTN, RVSP at least 42 mmHg tele: afib with RVR 140s afib - in post op setting after ex lap, PAN - hold AC until clear per surgery - monitor on tele - currently NPO, rate did not improve with metoprolol - diltiazem 10 mg IV PRN for tachycardia SBO s/p ex lap, PAN - manage per surgery, currently NPO pulm HTN, chronic diastolic HF - mild to mod, likely 2/2 diastolic CHF - appears euvolemic DM - manage per primary HTN - holding PO meds, BP stable, restart when taking PO HLD - holding statin, restart when taking PO CKD - Cr improving post op, monitoring
[2018-11-22] MEDS: LACTATED RINGERS SOLUTION 1,000 ML IV SCH (17:22)
[2018-11-22] MEDS: ACETAMINOPHEN 1000 MG/100 ML VIAL (NON FORMULARY) IVPB PRN (18:07)
[2018-11-22] MEDS: DILTIAZEM INJECTION 125 MG in SODIUM CHLORIDE 100 ML IVPB SCH (19:36)
--- NOTE | 2018-11-23 00:43 | HOSP ---
Subjective - Review of Symptoms Events since last encounter: Hospitalist Encounter Notified by RN that the patient's HR 140s-150s afib, and is on a Cardizem Drip. Subjective: Arrived to bedside, patient is asleep but arousable reports concerns if her NGT and Salas are draining. Patient denies SOB, CP, palpitations or dizziness at present. Assessment: This is a 72 y/o woman with a PMHx of: CKD, HTN, DM, nephrolithiasis presented initially for UTI, abd pain, SBO. She is now POD 3 s/p laparotomy with lysis of adhesions, with new afib with RVR seen yesterday by Cardiology. Plan: Titrate Cardizem Drip EKG stat RN- notify Cardiology Cardizem IVP Physical Examination Vital Signs: Vital Signs Temperature 99.4 F 11/22/18 19:50 Pulse Rate 141 H 11/23/18 00:35 Respiratory Rate 20 11/22/18 19:50 Blood Pressure 152/96 11/23/18 00:35 O2 Sat by Pulse Oximetry (%) 100 11/22/18 09:00 Constitutional: Yes: No Distress, Calm, Obese Eyes: Yes: Conjunctiva Clear, PERRL HENT: Yes: Atraumatic, Normocephalic, Other (NGT- left nare yellow brown drainage to tubing) Neck: Yes: WNL Cardiovascular: Yes: Tachycardia, Pulse Irregular, S1, S2 Respiratory: Yes: Regular, CTA Bilaterally, On Nasal O2 Gastrointestinal: Yes: Other (surgical abhay intact mid-line abdomen) Renal/: Yes: Salas Present (yellow urine) Peripheral Pulses WNL: Yes Neurological: Yes: Alert, Oriented, Cran Nerves II-XII Intact Psychiatric: Yes: WNL, Alert, Oriented Labs: CBC, BMP 11/22/18 06:30 11/22/18 06:30 Hospitalist Encounter Outcome: Spoke with RN patient's HR improved now 110s-120s, continues to be asymptomatic , on Cardizem Drip. Recommendations/Interventions: CTA r/o PE Critical Care Total Critical Care Time (in minutes): 35 Critical Care Statement: The care of this patient involved high complexity decision making to prevent further life threatening deterioration of the patient 's condition and/or to evaluate & treat vital organ system(s) failure or risk of failure.
[2018-11-23] MEDS: dilTIAZem HCL 50 MG/10 ML - 10 ML VIAL IVPUSH PRN (01:15)
[2018-11-23] MEDS ORDERED: PIPERACILLIN/TAZOBACTAM 3.375 GM VIAL IVPB ONE ×3 (02:38→18:08)
[2018-11-23] MEDS ORDERED: DEXTROSE 5%-WATER - 50 ML IVPB ONE ×3 (02:38→18:08)
[2018-11-23] MEDS: PIPERACILLIN/TAZOB 3.375 GM 3.375 GM in DEXTROSE 5%-WATER - 50 ML IVPB SCH ×3 (02:45→18:13)
[2018-11-23] MEDS: INSULIN SLIDING SCALE (NOVOLOG) 1 VIAL SQ SCH ×4 (06:38→22:16)
[2018-11-23] MEDS: HEPARIN NA (PORCINE) 5,000 UNITS/ML 1ML VIAL SQ SCH ×3 (06:38→22:16)
[2018-11-23] MEDS: HYDROmorphone *PCA* 10MG/50ML DISP.SYRIN PCA SCH ×2 (07:51→10:01)
[2018-11-23] MEDS: METOPROLOL TARTRATE 5 MG/5 ML VIAL IVPUSH PRN ×3 (08:54→20:20)
[2018-11-23] MEDS: LACTATED RINGERS SOLUTION 1,000 ML IV SCH ×2 (09:21→16:13)
--- NOTE | 2018-11-23 10:11 | PN ---
Progress Note (short form) - Note Progress Note: Pain Management Patient is s/p ex lap for SBO post op day 3. On WOOD POLISHER for pain management. Yesterday patient was found to be in afib with RVR. OVernight her WOOD POLISHER settings were changed from 0.2mg continuous with demand to no continuous with demand. She is pressing the button (12 demands in two hours) but is still complaining of pain. Would recommend restarting continuous infusion especially now she is on a monitored floor. Otherwise keep demand settings as is.
--- NOTE | 2018-11-23 12:33 | PN ---
Progress Note, Physician Chief Complaint: AWAKE ALERT EVENTS AND NOTES REVIEWED IN MODERATE DISTRESS - Current Medication List Current Medications: Active Medications Acetaminophen (Ofirmev Injection -) 1,000 mg IVPB Q6H PRN PRN Reason: PAIN LEVEL 6-10 Last Admin: 11/22/18 18:07 Dose: 1,000 mg Dexamethasone Sodium Phosphate (Decadron Injection -) 4 mg IVPUSH ONCE PRN PRN Reason: NAUSEA AND/OR VOMITING Diltiazem HCl (Cardizem Injection -) 10 mg IVPUSH Q4H PRN PRN Reason: TACHYCARDIA Last Admin: 11/23/18 01:15 Dose: 10 mg Diphenhydramine HCl (Benadryl Injection -) 12.5 mg IVPUSH ONCE PRN PRN Reason: FOR ITCHING Last Admin: 11/20/18 13:44 Dose: 12.5 mg Heparin Sodium (Porcine) (Heparin -) 5,000 unit SQ TID [facility] Last Admin: 11/23/18 06:38 Dose: 5,000 unit Piperacillin Sod/Tazobactam (Sod 3.375 gm/ Dextrose) 50 mls @ 100 mls/hr IVPB Q8H-IV [facility]; Protocol Last Admin: 11/23/18 09:13 Dose: 100 mls/hr Lactated Ringer's (Lactated Ringers Solution) 1,000 mls @ 150 mls/hr IV ASDIR B[facility] Last Admin: 11/23/18 09:21 Dose: 150 mls/hr Diltiazem HCl 125 mg/ Sodium (Chloride) 125 mls @ 5 mls/hr IVPB TITR B[facility]; Protocol Last Titration: 11/23/18 00:35 Dose: 15 mg/hr, 15 mls/hr Insulin Aspart (Novolog Vial Sliding Scale -) 1 vial SQ ACHS B[facility]; Protocol Last Admin: 11/23/18 11:11 Dose: 4 units Metoprolol Tartrate (Lopressor Injection -) 5 mg IVPUSH Q4H PRN PRN Reason: HYPERTENSION Last Admin: 11/23/18 08:54 Dose: 5 mg Ondansetron HCl (Zofran Injection) 4 mg IVPUSH Q4H PRN PRN Reason: NAUSEA AND/OR VOMITING - Objective Vital Signs: Vital Signs Temperature 98.2 F 11/23/18 09:51 Pulse Rate 120 H 11/23/18 11:21 Respiratory Rate 16 03/30/19 11:21 Blood Pressure 128/88 11/23/18 11:21 O2 Sat by Pulse Oximetry (%) 99 11/22/18 21:00 Constitutional: Yes: Mild Distress Eyes: Yes: WNL HENT: Yes: WNL Neck: Yes: WNL Cardiovascular: Yes: Tachycardia, Pulse Irregular Respiratory: Yes: On Nasal O2 Gastrointestinal: Yes: Soft Genitourinary: Yes: Mcpherson Present Edema: No Psychiatric: Yes: Alert Labs: CBC, BMP 11/22/18 06:30 11/22/18 06:30 INR, PTT INR 1.19 (0.82-1.09) 11/16/18 14:35 Problem List - Problems (1) Abdominal pain Code(s): R10.9 - UNSPECIFIED ABDOMINAL PAIN Qualifiers: Abdominal location: unspecified location Qualified Code(s): R10.9 - Unspecified abdominal pain (2) Atrial fibrillation with RVR Code(s): I48.91 - UNSPECIFIED ATRIAL FIBRILLATION (3) CKD (chronic kidney disease) stage 3, GFR 30-59 ml/min Code(s): N18.3 - CHRONIC KIDNEY DISEASE, STAGE 3 (MODERATE) (4) Diabetes mellitus type 2 in obese Code(s): E11.69 - TYPE 2 DIABETES MELLITUS WITH OTHER SPECIFIED COMPLICATION; E66.9 - OBESITY, UNSPECIFIED (5) Small bowel obstruction Assessment/Plan: S/P RESECTION OF LYSIS Code(s): K56.609 - UNSP INTESTNL OBST, UNSP TO PARTIAL VERSUS COMPLETE OBST Assessment/Plan TELEMETRY MONITORING 02 SUPPORT COMFORTABLE RATE CONTROL NGT TO SUCTION LOW GREEN DISCHARGE FROM NGT MCPHERSON CATH PAIN CONTROL MONITOR LABS CARDIO/SURGERY EVAL APPRECIATED
--- NOTE | 2018-11-23 13:10 | PN ---
Progress Note (short form) - Note Progress Note: s: no cp sob palps dizzy o: Vital Signs Period Temp Pulse Resp BP Sys/Pascual Pulse Ox Last 24 Hr 98.1 F-99.4 F 99-142 16-22 128-158/78-99 99 Constitutional: Yes: Well Nourished, No Distress, Calm Eyes: Yes: Conjunctiva Clear Respiratory: Yes: Regular, CTA Bilaterally Gastrointestinal: Yes: Tenderness Cardiovascular: Yes: Tachycardia, Pulse Irregular JVD: No Heart Sounds: Yes: S1, S2 Murmur: No: Systolic Murmur Extremities: No: Cold Edema: No Peripheral Pulses: 2+ Left Doralis Pedis, 2+ Right Dorsalis Pedis Integumentary: No: Jaundice Neurological: Yes: Alert, Oriented Psychiatric: No: Agitated Current Medications Generic Name Dose Route Start Last Admin Trade Name Freq PRN Reason Stop Dose Admin Acetaminophen 1,000 mg 11/20/18 12:08 11/22/18 18:07 Ofirmev Injection - IVPB 1,000 mg Q6H PRN Administration PAIN LEVEL 6-10 Dexamethasone Sodium Phosphate 4 mg 11/20/18 12:08 Decadron Injection - IVPUSH ONCE PRN NAUSEA AND/OR VOMITING Diltiazem HCl 10 mg 11/22/18 17:18 11/23/18 01:15 Cardizem Injection - IVPUSH 10 mg Q4H PRN Administration TACHYCARDIA Diphenhydramine HCl 12.5 mg 11/20/18 12:08 11/20/18 13:44 Benadryl Injection - IVPUSH 12.5 mg ONCE PRN Administration FOR ITCHING Heparin Sodium (Porcine) 5,000 unit 11/20/18 14:00 11/23/18 06:38 Heparin - SQ 5,000 unit TID [facility] Administration Hydromorphone HCl 2 mg 11/23/18 12:34 Dilaudid Vial - IVPB Q6H PRN PAIN LEVEL 7 - 10 Piperacillin Sod/Tazobactam 50 mls @ 100 mls/hr 11/20/18 18:00 11/23/18 09:13 Sod 3.375 gm/ Dextrose IVPB 100 mls/hr Q8H-IV [facility] Administration Protocol Lactated Ringer's 1,000 mls @ 150 mls/hr 11/21/18 16:23 11/23/18 09:21 Lactated Ringers Solution IV 150 mls/hr ASDIR [facility] Administration Diltiazem HCl 125 mg/ Sodium 125 mls @ 5 mls/hr 11/22/18 17:30 11/23/18 00:35 Chloride IVPB 15 mg/hr TITR [facility] 15 mls/hr Titration Protocol 5 MG/HR Insulin Aspart 1 vial 11/20/18 16:30 11/23/18 11:11 Novolog Vial Sliding Scale - SQ 4 units ACHS [facility] Administration Protocol Metoprolol Tartrate 5 mg 11/22/18 14:55 11/23/18 08:54 Lopressor Injection - IVPUSH 5 mg Q4H PRN Administration HYPERTENSION Ondansetron HCl 4 mg 11/20/18 12:08 Zofran Injection IVPUSH Q4H PRN NAUSEA AND/OR VOMITING CBC, BMP 11/22/18 06:30 11/22/18 06:30 Assessment/Plan EKG: initial sinus, LVH, first deg AVB EKG 11/22 afib with RVR rate 135 bpm echo 11/2016 LV mildly dilated, nl LV function, sigmoid septum, RV nl, LA severely dilated, RA mildly enlarged, mild MR, mild TR, at least mild pulm HTN, RVSP at least 42 mmHg tele: afib with rvr at times afib - in post op setting after ex lap, PAN - hold AC until clear per surgery - monitor on tele - currently NPO, cont dilt gtt until can take pills - diltiazem 10 mg IV PRN for tachycardia SBO s/p ex lap, PAN - manage per surgery, currently NPO pulm HTN, chronic diastolic HF - mild to mod, likely 2/2 diastolic CHF - appears euvolemic DM - manage per primary HTN - holding PO meds, BP stable, restart when taking PO HLD - holding statin, restart when taking PO CKD - Cr improving post op, monitoring
[2018-11-23] MEDS: ACETAMINOPHEN 1000 MG/100 ML VIAL (NON FORMULARY) IVPB PRN (13:37)
[2018-11-23] MEDS: HYDROmorphone HCl 2 MG/ML VIAL IVPB PRN ×2 (15:15→22:52)
--- NOTE | 2018-11-23 16:23 | PN ---
Progress Note, Physician History of Present Illness: POD3 s/p extensive lysis of intestinal adhesions for developing SBO, with suture repair of small RUQ incisional hernia from inside, with findings of previous ?Jackelin-en-Y reconstruction, likely hepaticojejunostomy, done years ago after post-cholecystectomy complications per pt. Pt had new onset of afib with RVR yesterday and was transferred to telemetry on cardizem drip. Seen and examined in bed with some family present. She states she is feeling ok, better than early this morning, when she had some increased abdominal pain, chest tightness, and tachycardia. Notes reviewed from [employer] overnight, CTA considered but not done. Improved with additional cardizem/ lopressor and a dose of dilaudid IV instead of ANIMAL COP. HR has been managed with intermittent medication along with cardizem drip, currently in 100s-110s. No flatus or BM yet; NG output green, 250-300ml since yesterday on tele; Salas with clear/light yellow urine, 500ml since am, 150ml in bag now, almost 2L yesterday till this am. ANIMAL COP was d/c'd earlier today, and pt doing ok on prn meds only. Labs ordered for today. Appears euvolemic, UOP good. - Current Medication List Current Medications: Active Medications Acetaminophen (Ofirmev Injection -) 1,000 mg IVPB Q6H PRN PRN Reason: PAIN LEVEL 6-10 Last Admin: 11/23/18 13:37 Dose: 1,000 mg Diltiazem HCl (Cardizem Injection -) 10 mg IVPUSH Q4H PRN PRN Reason: TACHYCARDIA Last Admin: 11/23/18 01:15 Dose: 10 mg Heparin Sodium (Porcine) (Heparin -) 5,000 unit SQ TID [facility] Last Admin: 11/23/18 13:33 Dose: 5,000 unit Hydromorphone HCl (Dilaudid Vial -) 2 mg IVPB Q6H PRN PRN Reason: PAIN LEVEL 7 - 10 Last Admin: 11/23/18 15:15 Dose: 2 mg Piperacillin Sod/Tazobactam (Sod 3.375 gm/ Dextrose) 50 mls @ 100 mls/hr IVPB Q8H-IV [facility]; Protocol Last Admin: 11/23/18 09:13 Dose: 100 mls/hr Lactated Ringer's (Lactated Ringers Solution) 1,000 mls @ 150 mls/hr IV ASDIR [facility] Last Admin: 11/23/18 16:13 Dose: 150 mls/hr Diltiazem HCl 125 mg/ Sodium (Chloride) 125 mls @ 5 mls/hr IVPB TITR [facility]; Protocol Last Titration: 11/23/18 00:35 Dose: 15 mg/hr, 15 mls/hr Insulin Aspart (Novolog Vial Sliding Scale -) 1 vial SQ ACHS [facility]; Protocol Last Admin: 11/23/18 11:11 Dose: 4 units Metoprolol Tartrate (Lopressor Injection -) 5 mg IVPUSH Q4H PRN PRN Reason: HYPERTENSION Last Admin: 11/23/18 15:57 Dose: 5 mg Ondansetron HCl (Zofran Injection) 4 mg IVPUSH Q4H PRN PRN Reason: NAUSEA AND/OR VOMITING - Objective Vital Signs: Vital Signs Temperature 99.5 F 11/23/18 15:15 Pulse Rate 110 H 11/23/18 16:13 Respiratory Rate 16 11/23/18 16:13 Blood Pressure 127/70 11/23/18 16:13 O2 Sat by Pulse Oximetry (%) 99 11/22/18 21:00 Vital Signs Period Temp Pulse Resp BP Sys/Pascual Pulse Ox Last 24 Hr 98.1 F-99.5 F 99-142 16-22 127-162/70-99 99 Intake & Output 11/23/18 11/23/18 11/23/18 07:59 15:59 23:59 Intake Total 450 Output Total 800 500 900 Balance -800 -50 -900 Intake: IV 300 Lactated Ringers Solution 300 1,000 ml @ 150 mls/hr IV ASDIR [facility] Rx#: [id number] IVPB 150 Output: Urine 800 900 Salas 800 500 900 Emesis Other: Voiding Method Indwelling Catheter Bowel Movement No NG with 250-300ml green output per nursing Constitutional: Yes: No Distress, Calm, Obese Eyes: Yes: Conjunctiva Clear, EOM Intact HENT: Yes: Atraumatic, Normocephalic, Other ([place] NGT in place to intermittent suction, green output, resecured to nose) Cardiovascular: Yes: Tachycardia, Pulse Irregular Respiratory: Yes: On Nasal O2. No: SOB Gastrointestinal: Yes: Soft, Abdomen, Obese, Hypoactive Bowel Sounds, Tenderness (minimal RUQ and incisional - no R/G) Genitourinary: Yes: Salas Present. No: Hematuria Extremities: No: Cool, Cyanosis Integumentary: Yes: Incision (midline w/abhay). No: Erythema, Jaundice, Rash Wound/Incision: Yes: Clean/Dry, Well Approximated, [place] Intact, Open to air. No: Draining, Reddened Neurological: Yes: Alert, Oriented Labs: CBC, BMP 11/23/18 15:33 11/23/18 15:33 Phos 2.0 Mg 1.9 K low BUN/Cr continue to decrease Na/Cl up a bit Problem List - Problems (1) Small bowel obstruction Assessment/Plan: POD3 s/p extensive lysis of adhesions and RUQ incisional hernia repair s/p likely hepaticojejunostomy in past with intestinal reconstruction - with dilated/stagnant loop of anastomotic area had small enterotomy repaired in proximal SB with small yellow fluid leakage, minimal contamination doing well from postop standpoint continue NPO/IVF, will change to maintenance fluids; NGT to intermittent suction replete lytes await resumption of small bowel function, return of full bowel sounds pain controlled with prn meds - Tylenol and/or Dilaudid - encouraged pt to use as needed postop antibiotics to continue for now, ID on board incision c/d/i with abhay OOB to chair and with assist as able Code(s): K56.609 - UNSP INTESTNL OBST, UNSP TO PARTIAL VERSUS COMPLETE OBST (2) Atrial fibrillation with RVR Assessment/Plan: keep lytes [facility] Code(s): I48.91 - UNSPECIFIED ATRIAL FIBRILLATION (3) Hypertension Code(s): I10 - ESSENTIAL (PRIMARY) HYPERTENSION Qualifiers: Hypertension type: essential hypertension Qualified Code(s): I10 - Essential (primary) hypertension (4) Diabetes mellitus type 2 in obese Assessment/Plan: maintain glucose control FS with SSI coveraqe Code(s): E11.69 - TYPE 2 DIABETES MELLITUS WITH OTHER SPECIFIED COMPLICATION; E66.9 - OBESITY, UNSPECIFIED (5) S/P ureteral stent placement Assessment/Plan: urology to see Code(s): Z96.0 - PRESENCE OF UROGENITAL IMPLANTS (6) Gout Assessment/Plan: home med on hold while npo Code(s): M10.9 - GOUT, UNSPECIFIED Qualifiers: Gout site: toe Gout etiology: unspecified cause Chronicity: unspecified Laterality: unspecified laterality Qualified Code(s): M10.9 - Gout, unspecified (7) CKD (chronic kidney disease) stage 3, GFR 30-59 ml/min Assessment/Plan: BUN/Cr coming back down - UOP good likely getting close to baseline Dr. Thurman seeing pt for nephrology Code(s): N18.3 - CHRONIC KIDNEY DISEASE, STAGE 3 (MODERATE) (8) RUQ pain Assessment/Plan: improved Code(s): R10.11 - RIGHT UPPER QUADRANT PAIN (9) History of cholecystectomy Code(s): Z90.49 - ACQUIRED ABSENCE OF OTHER SPECIFIED PARTS OF DIGESTIVE TRACT (10) History of common bile duct surgery Code(s): Z98.890 - OTHER SPECIFIED POSTPROCEDURAL STATES
[2018-11-23 16:25] LABS: ANION GAP 10 MMOL/L (8-16); BLOOD UREA NITROGEN 20 mg/dL (7-18); CALCIUM 8.6 mg/dL (8.5-10.1); CHLORIDE 110 mmol/L (98-107); CO2 27 mmol/L (21-32); CREATININE 1.5 mg/dL (0.55-1.3); GLUCOSE,RANDOM 237 mg/dL (74-106); MAGNESIUM 1.9 mg/dL (1.8-2.4); POTASSIUM 3.4 mmol/L (3.5-5.1); SODIUM 146 mmol/L (136-145)
[2018-11-23 16:51] LABS: BASO % 0.2 % (0-2.0); HEMATOCRIT 27.6 % (32.4-45.2); HEMOGLOBIN 8.8 GM/dL (10.7-15.3); LYMPH % 6.6 % (8-40); MCH 25.4 pg (25.7-33.7); MCHC 31.9 g/dl (32.0-36.0); MEAN CELL VOLUME 79.6 fl (80-96); MEAN PLT VOLUME 8.9 fl (7.5-11.1); MONO % 12.2 % (3.8-10.2); PLATELET COUNT 257 K/MM3 (134-434); RBC 3.46 M/mm3 (3.60-5.2); RDW 18.6 % (11.6-15.6); WHITE BLOOD COUNT 12.1 K/mm3 (4.0-10.0)
[2018-11-23] MEDS ORDERED: POTASSIUM PHOSPHATE 30 MM in SODIUM CHLORIDE 500 ML IVPB ONE (17:00)
[2018-11-23] MEDS: SODIUM CHLORIDE 0.45%/POT 20 MEQ/1,000 ML INFUS.BAG IV SCH (17:07)
--- NOTE | 2018-11-23 17:19 | CON.NEP ---
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) ...: No Infectious Disease: No: AIDS Psych: No: Addictions Musculoskeletal: Yes: Chronic low back pain (s/p low back surgery/disc issues in past) Rheumatology: Yes: Gout Endocrine: Yes: Diabetes Mellitus, Other (adrenal adenoma) - Past Surgical History Past Surgical History: Yes: Cholecystectomy, Colonoscopy, Hernia Repair (ventral /?umbilical with mesh years ago), Hysterectomy, Joint Replacement (bilateral knee total knee replacement), Laminectomy (Lumbar spine), Stent (left ureteral ( placed early this month in [place])), Upper Endoscopy - Alcohol/Substance Use Hx Alcohol Use: No History of Substance Use: reports: None - Smoking History Smoking history: Never smoked Have you smoked in the past 12 months: No Aproximately how many cigarettes per day: 0 - Social History Usual Living Arrangement: Alone ADL: Independent 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[employer], 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 History of Recent Travel: Yes ([place], [place] from June to 11/06/18) Home Medications - Allergies Allergies/Adverse Reactions: Allergies Allergy/AdvReac Type Severity Reaction Status Date / Time latex Allergy Severe Swelling Verified 11/16/18 13:55 insulin lispro [From Humalog] Allergy Intermediate Generalized Verified 13:55 rash and itching naproxen [From Naprosyn] Allergy Swelling Verified 11/16/18 13:55 oxaprozin [From Daypro] Allergy Swelling Verified 11/16/18 13:55 saxagliptin HCl Allergy leg edema Verified 11/16/18 13:55 [From Onglyza] latex Allergy Severe Uncoded 11/16/18 13:55 Mushrooms Allergy Uncoded 11/16/18 13:55 naproxen Allergy Uncoded 11/16/18 13:55 - Home Medications Home Medications: Ambulatory Orders Cholecalciferol (Vitamin D3) [Vitamin D3] 50 mcg PO DAILY 10/19/16 Insulin (Levemir) [Levemir Vial] 55 unit SQ ASDIR 10/19/16 Allopurinol [Zyloprim -] 100 mg PO DAILY 12/20/16 Insulin (LOG) Aspart [NovoLOG -] 7 units SQ DAILY 01/16/17 Aspirin [ASA -] 81 mg PO DAILY 03/19/18 Amlodipine Besylate 5 mg PO DAILY 11/16/18 Atorvastatin Calcium 10 mg PO DAILY 11/16/18 Chlorthalidone 25 mg PO DAILY 11/16/18 Ciprofloxacin [Cipro (Restricted To Id)] 500 mg PO BID 11/16/18 Potassium Citrate [Potassium Citrate ER] 30 meq PO BID 11/16/18 Family Disease History - Family Disease History Family Disease History: Other: Father ( 84), Mother (lived to 96) Other Family History: NO IBD or cancer, Pat aunt had DM Nephrology Consult - Height Height: 5 ft 5 in - Weight Weight: 219 lb 6.4 oz - BMI Body Mass Index (BMI): 36.5 - Lab Results CBC,BMP: CBC, BMP 11/23/18 15:33 11/23/18 15:33 Anion Gap: Anion Gap Anion Gap 10 MMOL/L (8-16) 11/23/18 15:33 - Physical Examination Vital Signs: Vital Signs Temperature 99.5 F 11/23/18 15:15 Pulse Rate 110 H 11/23/18 16:13 Respiratory Rate 16 11/23/18 16:13 Blood Pressure 127/70 11/23/18 16:13 O2 Sat by Pulse Oximetry (%) 99 11/22/18 21:00 Assessment/Plan ludwin sbo on ngt drainage probably prerenal also has obstructive uropathy agree with IVF
[2018-11-23 17:58] LABS: EPI CELLS 2.8 /HPF (0-5); URINE APPEARANCE CLEAR; URINE BACTERIA 0.5 /hpf (NEGATIVE); URINE BILIRUBIN NEGATIVE (NEGATIVE); URINE CASTS 9 /hpf (0-8); URINE COLOR YELLOW; URINE GLUCOSE (UA) 1+ (NEGATIVE); URINE KETONE 1+ (NEGATIVE); URINE LEUK ESTERASE NEGATIVE (NEGATIVE); URINE NITRITE NEGATIVE (NEGATIVE); URINE PROTEIN 2+ (NEGATIVE); URINE RBC 162 /hpf (0-4); URINE UROBILINOGEN 0.2 mg/dL (0.2-1.0)
[2018-11-23 18:12] LABS: URINE WBC 28.8 /hpf (0-5)
[2018-11-23] MEDS: DILTIAZEM INJECTION 125 MG in SODIUM CHLORIDE 100 ML IVPB SCH (22:59)
[2018-11-24] MEDS: METOPROLOL TARTRATE 5 MG/5 ML VIAL IVPUSH PRN ×4 (00:18→15:50)
[2018-11-24] MEDS ORDERED: PIPERACILLIN/TAZOBACTAM 3.375 GM VIAL IVPB ONE ×3 (00:54→17:34)
[2018-11-24] MEDS ORDERED: DEXTROSE 5%-WATER - 50 ML IVPB ONE ×3 (00:54→17:34)
[2018-11-24] MEDS: PIPERACILLIN/TAZOB 3.375 GM 3.375 GM in DEXTROSE 5%-WATER - 50 ML IVPB SCH ×3 (01:49→17:51)
[2018-11-24] MEDS: ACETAMINOPHEN 1000 MG/100 ML VIAL (NON FORMULARY) IVPB PRN ×2 (02:52→09:31)
[2018-11-24] MEDS: dilTIAZem HCL 50 MG/10 ML - 10 ML VIAL IVPUSH PRN ×2 (03:34→17:50)
[2018-11-24] MEDS: ONDANSETRON 4 MG/2 ML VIAL IVPUSH PRN (04:15)
[2018-11-24] MEDS: HYDROmorphone HCl 2 MG/ML VIAL IVPB PRN ×3 (05:53→20:34)
[2018-11-24] MEDS: HEPARIN NA (PORCINE) 5,000 UNITS/ML 1ML VIAL SQ SCH ×3 (05:56→22:22)
[2018-11-24] MEDS: INSULIN SLIDING SCALE (NOVOLOG) 1 VIAL SQ SCH ×4 (06:15→22:22)
[2018-11-24 08:27] LABS: ANION GAP 10 MMOL/L (8-16); BLOOD UREA NITROGEN 19 mg/dL (7-18); CALCIUM 8.3 mg/dL (8.5-10.1); CHLORIDE 110 mmol/L (98-107); CO2 24 mmol/L (21-32); CREATININE 1.4 mg/dL (0.55-1.3); GLUCOSE,RANDOM 254 mg/dL (74-106); MAGNESIUM 1.7 mg/dL (1.8-2.4); POTASSIUM 3.7 mmol/L (3.5-5.1); SODIUM 145 mmol/L (136-145)
[2018-11-24 09:14] LABS: HEMATOCRIT 27.1 % (32.4-45.2); HEMOGLOBIN 8.6 GM/dL (10.7-15.3); MCH 25.4 pg (25.7-33.7); MCHC 31.5 g/dl (32.0-36.0); MEAN CELL VOLUME 80.6 fl (80-96); MEAN PLT VOLUME 9.3 fl (7.5-11.1); PLATELET COUNT 272 K/MM3 (134-434); RBC 3.37 M/mm3 (3.60-5.2); WHITE BLOOD COUNT 11.7 K/mm3 (4.0-10.0)
[2018-11-24] MEDS ORDERED: MAGNESIUM SULF 50% (8.12 MEQ/2 ML-1 GM VIAL) IVPB ONE (11:00)
--- NOTE | 2018-11-24 11:08 | PN ---
Progress Note, Physician Chief Complaint: AWAKE ALERT STILL WITH NGT IN PLACE AND GREEN FLUIDS DISCHARGE DENIES FEVER OR CHILLS - Current Medication List Current Medications: Active Medications Acetaminophen (Ofirmev Injection -) 1,000 mg IVPB Q6H PRN PRN Reason: PAIN LEVEL 6-10 Last Admin: 11/24/18 09:31 Dose: 1,000 mg Diltiazem HCl (Cardizem Injection -) 10 mg IVPUSH Q4H PRN PRN Reason: TACHYCARDIA Last Admin: 11/24/18 03:34 Dose: 10 mg Heparin Sodium (Porcine) (Heparin -) 5,000 unit SQ TID [facility] Last Admin: 11/24/18 05:56 Dose: 5,000 unit Hydromorphone HCl (Dilaudid Vial -) 2 mg IVPB Q6H PRN PRN Reason: PAIN LEVEL 7 - 10 Last Admin: 11/24/18 05:53 Dose: 2 mg Piperacillin Sod/Tazobactam (Sod 3.375 gm/ Dextrose) 50 mls @ 100 mls/hr IVPB Q8H-IV [facility]; Protocol Last Admin: 11/24/18 09:36 Dose: 100 mls/hr Diltiazem HCl 125 mg/ Sodium (Chloride) 125 mls @ 5 mls/hr IVPB TITR [facility]; Protocol Last Admin: 11/23/18 22:59 Dose: 15 mg/hr, 15 mls/hr Potassium Chloride/Sodium Chloride (1/2ns+20meq Kcl) 20 meq in 1,000 mls @ 125 mls/hr IV ASDIR [facility] Last Admin: 11/23/18 17:07 Dose: 125 mls/hr Insulin Aspart (Novolog Vial Sliding Scale -) 1 vial SQ ACHS [facility]; Protocol Last Admin: 11/24/18 06:15 Dose: 6 units Metoprolol Tartrate (Lopressor Injection -) 5 mg IVPUSH Q4H PRN PRN Reason: HYPERTENSION Last Admin: 11/24/18 09:35 Dose: 5 mg Ondansetron HCl (Zofran Injection) 4 mg IVPUSH Q4H PRN PRN Reason: NAUSEA AND/OR VOMITING Last Admin: 11/24/18 04:15 Dose: 4 mg - Objective Vital Signs: Vital Signs Temperature 98.5 F 11/24/18 09:36 Pulse Rate 137 H 11/24/18 10:02 Respiratory Rate 20 11/24/18 10:02 Blood Pressure 134/92 11/24/18 10:02 O2 Sat by Pulse Oximetry (%) 98 11/24/18 09:00 Constitutional: Yes: Mild Distress Cardiovascular: Yes: Regular Rate and Rhythm Respiratory: Yes: WNL Gastrointestinal: Yes: Soft, Other Genitourinary: Yes: [place] Present Musculoskeletal: Yes: Muscle Weakness Edema: No Wound/Incision: Yes: Dressing Dry and Intact Labs: CBC, BMP 11/24/18 05:30 11/24/18 05:30 INR, PTT INR 1.19 (0.82-1.09) 11/16/18 14:35 Problem List - Problems (1) Abdominal pain Code(s): R10.9 - UNSPECIFIED ABDOMINAL PAIN Qualifiers: Abdominal location: unspecified location Qualified Code(s): R10.9 - Unspecified abdominal pain (2) Atrial fibrillation with RVR Code(s): I48.91 - UNSPECIFIED ATRIAL FIBRILLATION (3) CKD (chronic kidney disease) stage 3, GFR 30-59 ml/min Code(s): N18.3 - CHRONIC KIDNEY DISEASE, STAGE 3 (MODERATE) (4) Diabetes mellitus type 2 in obese Code(s): E11.69 - TYPE 2 DIABETES MELLITUS WITH OTHER SPECIFIED COMPLICATION; E66.9 - OBESITY, UNSPECIFIED (5) Small bowel obstruction Code(s): K56.609 - UNSP INTESTNL OBST, UNSP TO PARTIAL VERSUS COMPLETE OBST Assessment/Plan TELEMETRY MONITORING NO ALARMS 02 SUPPORT NC 2L COMFORTABLE AT THIS TIME RATE CONTROL B-BLOCKERS NGT TO SUCTION LOW GREEN DISCHARGE FROM NGT [facility] CATH PAIN CONTROL MONITOR LABS CARDIO/SURGERY EVAL APPRECIATED CORRECT ELECTROLYTES LABS IN AM
--- NOTE | 2018-11-24 14:32 | PN ---
Progress Note (short form) - Note Progress Note: s: no cp sob palps dizzy. o: Vital Signs Period Temp Pulse Resp BP Sys/Pascual Pulse Ox Last 24 Hr 98.4 F-99.8 F 109-152 16-22 127-162/70-98 95-98 Constitutional: Yes: Well Nourished, No Distress, Calm Eyes: Yes: Conjunctiva Clear Respiratory: Yes: Regular, CTA Bilaterally Gastrointestinal: Yes: Tenderness Cardiovascular: Yes: Tachycardia, Pulse Irregular JVD: No Heart Sounds: Yes: S1, S2 Murmur: No: Systolic Murmur Extremities: No: Cold Edema: No Peripheral Pulses: 2+ Left Doralis Pedis, 2+ Right Dorsalis Pedis Integumentary: No: Jaundice Neurological: Yes: Alert, Oriented Psychiatric: No: Agitated Current Medications Acetaminophen (Ofirmev Injection -) 1,000 mg IVPB Q6H PRN PRN Reason: PAIN LEVEL 6-10 Last Admin: 11/24/18 09:31 Dose: 1,000 mg Diltiazem HCl (Cardizem Injection -) 10 mg IVPUSH Q4H PRN PRN Reason: TACHYCARDIA Last Admin: 11/24/18 03:34 Dose: 10 mg Heparin Sodium (Porcine) (Heparin -) 5,000 unit SQ TID [facility] Last Admin: 11/24/18 14:11 Dose: 5,000 unit Hydromorphone HCl (Dilaudid Vial -) 2 mg IVPB Q6H PRN PRN Reason: PAIN LEVEL 7 - 10 Last Admin: 11/24/18 12:44 Dose: 2 mg Piperacillin Sod/Tazobactam (Sod 3.375 gm/ Dextrose) 50 mls @ 100 mls/hr IVPB Q8H-IV [facility]; Protocol Last Admin: 11/24/18 09:36 Dose: 100 mls/hr Diltiazem HCl 125 mg/ Sodium (Chloride) 125 mls @ 5 mls/hr IVPB TITR [facility]; Protocol Last Admin: 11/23/18 22:59 Dose: 15 mg/hr, 15 mls/hr Potassium Chloride/Sodium Chloride (1/2ns+20meq Kcl) 20 meq in 1,000 mls @ 125 mls/hr IV ASDIR [facility] Last Admin: 11/23/18 17:07 Dose: 125 mls/hr Insulin Aspart (Novolog Vial Sliding Scale -) 1 vial SQ ACHS [facility]; Protocol Last Admin: 11/24/18 11:44 Dose: 6 units Metoprolol Tartrate (Lopressor Injection -) 5 mg IVPUSH Q4H PRN PRN Reason: HYPERTENSION Last Admin: 11/24/18 09:35 Dose: 5 mg Ondansetron HCl (Zofran Injection) 4 mg IVPUSH Q4H PRN PRN Reason: NAUSEA AND/OR VOMITING Last Admin: 11/24/18 04:15 Dose: 4 mg Assessment/Plan EKG: initial sinus, LVH, first deg AVB EKG 11/22 afib with RVR rate 135 bpm echo 11/2016 LV mildly dilated, nl LV function, sigmoid septum, RV nl, LA severely dilated, RA mildly enlarged, mild MR, mild TR, at least mild pulm HTN, RVSP at least 42 mmHg tele: afib with rvr at times afib - in post op setting after ex lap, PAN - hold AC until clear per surgery - monitor on tele - currently NPO, cont dilt gtt until can take pills - diltiazem 10 mg IV PRN for tachycardia SBO s/p ex lap, PAN - manage per surgery, currently NPO pulm HTN, chronic diastolic HF - mild to mod, likely 2/2 diastolic CHF - appears euvolemic DM - manage per primary HTN - holding PO meds, BP stable, restart when taking PO HLD - holding statin, restart when taking PO CKD - Cr improving post op, monitoring
--- NOTE | 2018-11-24 15:05 | PN ---
Progress Note, Physician History of Present Illness: POD4 s/p extensive lysis of intestinal adhesions for developing SBO, with suture repair of small RUQ incisional hernia from inside, with findings of previous intestinal reconstruction, likely hepaticojejunostomy, done years ago after post-cholecystectomy complications per pt. Pt postop had new onset of afib with RVR and was transferred to telemetry, now on cardizem drip with prn's for HR. Seen and examined in bed with Dr. Mathew of cardiology just finishing. She states she is feeling well, sat up in chair earlier today and had a mixed/loose large BM. NG output now no longer green, more clear with dark particulate sediment, slightly light brown, minimal overnight, about 200ml in canister since am now. Salas with clear/light yellow urine, 2000ml yesterday till this am (24H). Pain minimal, controlled with prn Tylenol and Dilaudid. Pt moving well, got up to chair mostly by herself per nurse. Can get ~1000ml on IS. Would like occasional ice chips for wetting her mouth. Feels/hears stomach rumbling. - Current Medication List Current Medications: Active Medications Acetaminophen (Ofirmev Injection -) 1,000 mg IVPB Q6H PRN PRN Reason: PAIN LEVEL 6-10 Last Admin: 11/24/18 09:31 Dose: 1,000 mg Diltiazem HCl (Cardizem Injection -) 10 mg IVPUSH Q4H PRN PRN Reason: TACHYCARDIA Last Admin: 11/24/18 03:34 Dose: 10 mg Heparin Sodium (Porcine) (Heparin -) 5,000 unit SQ TID [facility] Last Admin: 11/24/18 14:11 Dose: 5,000 unit Hydromorphone HCl (Dilaudid Vial -) 2 mg IVPB Q6H PRN PRN Reason: PAIN LEVEL 7 - 10 Last Admin: 11/24/18 12:44 Dose: 2 mg Piperacillin Sod/Tazobactam (Sod 3.375 gm/ Dextrose) 50 mls @ 100 mls/hr IVPB Q8H-IV [facility]; Protocol Last Admin: 11/24/18 09:36 Dose: 100 mls/hr Diltiazem HCl 125 mg/ Sodium (Chloride) 125 mls @ 5 mls/hr IVPB TITR [facility]; Protocol Last Admin: 11/23/18 22:59 Dose: 15 mg/hr, 15 mls/hr Potassium Chloride/Sodium Chloride (1/2ns+20meq Kcl) 20 meq in 1,000 mls @ 125 mls/hr IV ASDIR [facility] Last Admin: 11/23/18 17:07 Dose: 125 mls/hr Insulin Aspart (Novolog Vial Sliding Scale -) 1 vial SQ ACHS [facility]; Protocol Last Admin: 11/24/18 11:44 Dose: 6 units Metoprolol Tartrate (Lopressor Injection -) 5 mg IVPUSH Q4H PRN PRN Reason: HYPERTENSION Last Admin: 11/24/18 09:35 Dose: 5 mg Ondansetron HCl (Zofran Injection) 4 mg IVPUSH Q4H PRN PRN Reason: NAUSEA AND/OR VOMITING Last Admin: 11/24/18 04:15 Dose: 4 mg - Objective Vital Signs: Vital Signs Temperature 99.1 F 11/24/18 14:00 Pulse Rate 148 H 11/24/18 14:00 Respiratory Rate 16 11/24/18 14:00 Blood Pressure 147/92 11/24/18 14:00 O2 Sat by Pulse Oximetry (%) 98 11/24/18 09:00 Vital Signs Period Temp Pulse Resp BP Sys/Pascual Pulse Ox Last 24 Hr 98.5 F-99.8 F 110-152 16-22 127-162/70-98 95-98 Intake & Output 11/23/18 11/24/18 11/24/18 23:59 07:59 15:59 Intake Total 1605 2200 250 Output Total 670 950 300 Balance 935 1250 -50 Weight 219 lb 6.4 oz Intake: IV 1430 1500 1/2NS+20MEQ KCL 20 meq In 250 1500 1,000 ml @ 125 mls/hr IV ASDIR [facility] Rx#: [id number] Cardizem Injection - 125 180 mg In Normal Saline - 100 ml @ 5 MG/HR 5 mls/hr IVPB TITR [facility] Rx#: [id number] Lactated Ringers Solution 1000 1,000 ml @ 150 mls/hr IV ASDIR [facility] Rx#: [id number] IVPB 175 700 250 Oral 0 0 Output: Gastric Drainage 70 50 Urine 600 900 300 Salas 600 900 300 Other: Voiding Method Indwelling Catheter Indwelling Catheter Bowel Movement No No Yes Height 5 ft 5 in Body Mass Index (BMI) 36.5 Constitutional: Yes: No Distress, Calm, Obese Eyes: Yes: Conjunctiva Clear, EOM Intact HENT: Yes: Atraumatic, Normocephalic, Other (NG in place to intermittent suction ) Cardiovascular: Yes: Tachycardia, Pulse Irregular Respiratory: Yes: Regular, On Nasal O2. No: SOB Gastrointestinal: Yes: Soft, Abdomen, Obese, Hypoactive Bowel Sounds (good sounds over LUQ/stomach, much less elsewhere). No: Tenderness (minimal in all quadrants and incisional) Genitourinary: Yes: Salas Present. No: Hematuria Extremities: No: Cool, Cyanosis Integumentary: Yes: Incision (midline w/abhay). No: Bruising, Jaundice, Rash Wound/Incision: Yes: Clean/Dry, Well Approximated, [place] Intact, Open to air. No: Reddened Neurological: Yes: Alert, Oriented Labs: CBC, BMP 11/24/18 05:30 11/24/18 05:30 CMP Sodium 145 mmol/L (136-145) 11/24/18 05:30 Potassium 3.7 mmol/L (3.5-5.1) 11/24/18 05:30 Chloride 110 mmol/L (98-107) H 11/24/18 05:30 Carbon Dioxide 24 mmol/L (21-32) 11/24/18 05:30 Anion Gap 10 MMOL/L (8-16) 11/24/18 05:30 BUN 19 mg/dL (7-18) H 11/24/18 05:30 Creatinine 1.4 mg/dL (0.55-1.3) H 11/24/18 05:30 Creat Clearance w eGFR 36.76 (>60) 11/24/18 05:30 POC Glucometer 269 UNITS (80-120) 11/24/18 11:40 Random Glucose 254 mg/dL (74-106) H 11/24/18 05:30 Hemoglobin A1c % 8.9 % (4.2-6.3) H 11/17/18 06:40 Lactic Acid 1.3 mmol/L (0.4-2.0) 11/19/18 22:35 Calcium 8.3 mg/dL (8.5-10.1) L 11/24/18 05:30 Phosphorus 3.0 mg/dL (2.5-4.9) 11/24/18 05:30 Magnesium 1.7 mg/dL (1.8-2.4) L 11/24/18 05:30 Total Bilirubin 1.1 mg/dL (0.2-1) H 11/22/18 06:30 AST 11 U/L (15-37) L 11/22/18 06:30 ALT 13 U/L (13-61) 11/22/18 06:30 Alkaline Phosphatase 80 U/L (45-117) 11/22/18 06:30 LD Total 152 U/L (84-246) 11/19/18 20:00 Troponin I 0.03 ng/ml (0.00-0.05) 11/16/18 14:18 C-Reactive Protein 1.9 MG/DL (0.00-0.3) H 11/19/18 07:00 Total Protein 5.9 g/dl (6.4-8.2) L 11/22/18 06:30 Albumin 2.1 g/dl (3.4-5.0) L 11/22/18 06:30 Total Amylase 50 U/L (25-115) 11/19/18 20:00 Lipase 154 U/L (73-393) 11/19/18 20:00 BUN/Cr trending down still K up from yesterday Phos normal, Mg little low - repleted Problem List - Problems (1) Small bowel obstruction Assessment/Plan: POD4 s/p extensive lysis of adhesions and RUQ incisional hernia repair s/p likely hepaticojejunostomy in past with intestinal reconstruction - with dilated/stagnant loop of anastomotic area had small enterotomy repaired in proximal SB with small yellow fluid leakage, minimal contamination doing well from postop standpoint incision c/d/i with abhay continue NPO/IVF, NGT to intermittent suction will allow sparing ice chips, pt able to brush teeth and spit await resumption of small bowel function, return of full bowel sounds pain controlled with prn meds - Tylenol and/or Dilaudid - encouraged pt to use as needed postop antibiotics to continue for now, ID on board trend labs OOB to chair and with assist as often as able will d/c Josue when bedside commode becomes available continue strict I/O's may consider NG clamp trial tomorrow if increased bowel sounds and still with little drainage Code(s): K56.609 - UNSP INTESTNL OBST, UNSP TO PARTIAL VERSUS COMPLETE OBST (2) Atrial fibrillation with RVR Assessment/Plan: keep lytes repleted cardiology on board nadine winter w/prn's echo pending anticipate improved HR control when able to resume po meds hopefully within a day or two discussed with Dr. Mathew Code(s): I48.91 - UNSPECIFIED ATRIAL FIBRILLATION (3) Hypertension Assessment/Plan: to resume clonidine and meds per cardio once back on po Code(s): I10 - ESSENTIAL (PRIMARY) HYPERTENSION Qualifiers: Hypertension type: essential hypertension Qualified Code(s): I10 - Essential (primary) hypertension (4) Diabetes mellitus type 2 in obese Assessment/Plan: maintain glucose control FS with SSI coveraqe A1C noted high Code(s): E11.69 - TYPE 2 DIABETES MELLITUS WITH OTHER SPECIFIED COMPLICATION; E66.9 - OBESITY, UNSPECIFIED (5) S/P ureteral stent placement Assessment/Plan: urology to see will have completed abx course stent management per uro Code(s): Z96.0 - PRESENCE OF UROGENITAL IMPLANTS (6) Gout Assessment/Plan: home med on hold while npo Code(s): M10.9 - GOUT, UNSPECIFIED Qualifiers: Gout site: toe Gout etiology: unspecified cause Chronicity: unspecified Laterality: unspecified laterality Qualified Code(s): M10.9 - Gout, unspecified (7) CKD (chronic kidney disease) stage 3, GFR 30-59 ml/min Assessment/Plan: BUN/Cr coming back down - UOP good likely getting close to baseline nephrology following continue IVF for now Code(s): N18.3 - CHRONIC KIDNEY DISEASE, STAGE 3 (MODERATE) (8) RUQ pain Assessment/Plan: initial pain resolved postop tenderness minimal, appropriate Code(s): R10.11 - RIGHT UPPER QUADRANT PAIN (9) History of cholecystectomy Code(s): Z90.49 - ACQUIRED ABSENCE OF OTHER SPECIFIED PARTS OF DIGESTIVE TRACT (10) History of common bile duct surgery Code(s): Z98.890 - OTHER SPECIFIED POSTPROCEDURAL STATES
[2018-11-24] MEDS: SODIUM CHLORIDE 0.45%/POT 20 MEQ/1,000 ML INFUS.BAG IV SCH (16:35)
[2018-11-24] MEDS: DILTIAZEM INJECTION 125 MG in SODIUM CHLORIDE 100 ML IVPB SCH (17:50)
--- NOTE | 2018-11-24 19:22 | PN ---
Progress Note (short form) - Note Progress Note: chacha sbo on ngt drainage probably prerenal also has obstructive uropathy Current Medications Acetaminophen (Ofirmev Injection -) 1,000 mg IVPB Q6H PRN PRN Reason: PAIN LEVEL 6-10 Last Admin: 11/24/18 09:31 Dose: 1,000 mg Diltiazem HCl (Cardizem Injection -) 10 mg IVPUSH Q4H PRN PRN Reason: TACHYCARDIA Last Admin: 11/24/18 17:50 Dose: 10 mg Heparin Sodium (Porcine) (Heparin -) 5,000 unit SQ TID [facility] Last Admin: 11/24/18 14:11 Dose: 5,000 unit Hydromorphone HCl (Dilaudid Vial -) 2 mg IVPB Q6H PRN PRN Reason: PAIN LEVEL 7 - 10 Last Admin: 11/24/18 12:44 Dose: 2 mg Piperacillin Sod/Tazobactam (Sod 3.375 gm/ Dextrose) 50 mls @ 100 mls/hr IVPB Q8H-IV [facility]; Protocol Last Admin: 11/24/18 17:51 Dose: 100 mls/hr Diltiazem HCl 125 mg/ Sodium (Chloride) 125 mls @ 5 mls/hr IVPB TITR [facility]; Protocol Last Admin: 11/24/18 17:50 Dose: 15 mg/hr, 15 mls/hr Potassium Chloride/Sodium Chloride (1/2ns+20meq Kcl) 20 meq in 1,000 mls @ 125 mls/hr IV ASDIR [facility] Last Admin: 11/24/18 16:35 Dose: 125 mls/hr Insulin Aspart (Novolog Vial Sliding Scale -) 1 vial SQ ACHS [facility]; Protocol Last Admin: 11/24/18 16:34 Dose: 4 units Metoprolol Tartrate (Lopressor Injection -) 5 mg IVPUSH Q4H PRN PRN Reason: HYPERTENSION Last Admin: 11/24/18 15:50 Dose: 5 mg Ondansetron HCl (Zofran Injection) 4 mg IVPUSH Q4H PRN PRN Reason: NAUSEA AND/OR VOMITING Last Admin: 11/24/18 04:15 Dose: 4 mg Last Vital Signs Temp Pulse Resp BP Pulse Ox 98.8 F 135 H 16 146/90 98 11/24/18 17:46 11/24/18 18:00 11/24/18 18:00 11/24/18 18:00 11/24/18 09:00 Lungs clear Heart reg Abd soft Ext no edema CBC, BMP 11/24/18 05:30 11/24/18 05:30 IMP- CHACHA post op recovering with IVF continue IVF
--- NOTE | 2018-11-24 23:10 | PN ---
Progress Note (short form) - Note Progress Note: uROLOGY NOTE. pt. with lt. jj stent due to a lt. renal stone.pt. still has mild lt. hydroureteronephrosis and a nonOBSTRUCTING RT. RENAL STONE ,SHE WILL NEED A LT. LASERLITHOTRIPSY AN OP.
[2018-11-25] MEDS ORDERED: DEXTROSE 5%-WATER - 50 ML IVPB ONE ×2 (01:56→09:38)
[2018-11-25] MEDS ORDERED: PIPERACILLIN/TAZOBACTAM 3.375 GM VIAL IVPB ONE ×2 (01:56→09:38)
[2018-11-25] MEDS: PIPERACILLIN/TAZOB 3.375 GM 3.375 GM in DEXTROSE 5%-WATER - 50 ML IVPB SCH ×2 (02:41→10:01)
[2018-11-25] MEDS: HYDROmorphone HCl 2 MG/ML VIAL IVPB PRN ×3 (02:43→18:55)
[2018-11-25] MEDS: INSULIN SLIDING SCALE (NOVOLOG) 1 VIAL SQ SCH ×4 (06:39→23:12)
[2018-11-25] MEDS: HEPARIN NA (PORCINE) 5,000 UNITS/ML 1ML VIAL SQ SCH ×3 (06:39→23:18)
[2018-11-25] MEDS: ONDANSETRON 4 MG/2 ML VIAL IVPUSH PRN (06:39)
[2018-11-25] MEDS: ACETAMINOPHEN 1000 MG/100 ML VIAL (NON FORMULARY) IVPB PRN ×2 (07:09→16:21)
[2018-11-25 07:20] LABS: ANION GAP 7 MMOL/L (8-16); BLOOD UREA NITROGEN 18 mg/dL (7-18); CALCIUM 8.1 mg/dL (8.5-10.1); CHLORIDE 109 mmol/L (98-107); CO2 29 mmol/L (21-32); CREATININE 1.3 mg/dL (0.55-1.3); GLUCOSE,RANDOM 216 mg/dL (74-106); MAGNESIUM 1.9 mg/dL (1.8-2.4); POTASSIUM 3.6 mmol/L (3.5-5.1); SODIUM 145 mmol/L (136-145)
[2018-11-25 07:25] LABS: HEMATOCRIT 24.9 % (32.4-45.2); MCH 25.8 pg (25.7-33.7); MCHC 32.3 g/dl (32.0-36.0); MEAN PLT VOLUME 8.9 fl (7.5-11.1); PLATELET COUNT 276 K/MM3 (134-434); RBC 3.12 M/mm3 (3.60-5.2); RDW 18.7 % (11.6-15.6)
--- NOTE | 2018-11-25 10:26 | EKG ---
Test Reason : Blood Pressure : / mmHG Vent. Rate : 129 BPM Atrial Rate : 098 BPM P-R Int : 000 ms QRS Dur : 120 ms QT Int : 342 ms P-R-T Axes : 000 -18 134 degrees QTc Int : 501 ms ATRIAL FIBRILLATION WITH RAPID VENTRICULAR RESPONSE LEFT VENTRICULAR HYPERTROPHY WITH QRS WIDENING ABNORMAL ECG WHEN COMPARED WITH ECG OF 22-NOV-2018 14:52, NO SIGNIFICANT CHANGE WAS FOUND Confirmed by ALBINA LEUNG MD ([id number]) on 11/25/2018 10:25:48 AM Referred By: Confirmed By:ALBINA LEUNG MD
--- NOTE | 2018-11-25 10:38 | PN ---
Progress Note, Physician Chief Complaint: abd pain History of Present Illness: currently no abd pain denies cp, sob, palpit - Current Medication List Current Medications: Active Medications Acetaminophen (Ofirmev Injection -) 1,000 mg IVPB Q6H PRN PRN Reason: PAIN LEVEL 6-10 Last Admin: 11/25/18 07:09 Dose: 1,000 mg Diltiazem HCl (Cardizem Injection -) 10 mg IVPUSH Q4H PRN PRN Reason: TACHYCARDIA Last Admin: 11/24/18 17:50 Dose: 10 mg Heparin Sodium (Porcine) (Heparin -) 5,000 unit SQ TID [facility] Last Admin: 11/25/18 06:39 Dose: 5,000 unit Hydromorphone HCl (Dilaudid Vial -) 2 mg IVPB Q6H PRN PRN Reason: PAIN LEVEL 7 - 10 Last Admin: 11/25/18 10:06 Dose: 2 mg Piperacillin Sod/Tazobactam (Sod 3.375 gm/ Dextrose) 50 mls @ 100 mls/hr IVPB Q8H-IV [facility]; Protocol Last Admin: 11/25/18 10:01 Dose: 100 mls/hr Diltiazem HCl 125 mg/ Sodium (Chloride) 125 mls @ 5 mls/hr IVPB TITR [facility]; Protocol Last Titration: 11/25/18 02:00 Dose: 0 mg/hr, 0 mls/hr Potassium Chloride/Sodium Chloride (1/2ns+20meq Kcl) 20 meq in 1,000 mls @ 125 mls/hr IV ASDIR [facility] Last Admin: 11/24/18 16:35 Dose: 125 mls/hr Insulin Aspart (Novolog Vial Sliding Scale -) 1 vial SQ ACHS [facility]; Protocol Last Admin: 11/25/18 06:39 Dose: 4 units Metoprolol Tartrate (Lopressor Injection -) 5 mg IVPUSH Q4H PRN PRN Reason: HYPERTENSION Last Admin: 11/24/18 15:50 Dose: 5 mg Ondansetron HCl (Zofran Injection) 4 mg IVPUSH Q4H PRN PRN Reason: NAUSEA AND/OR VOMITING Last Admin: 11/25/18 06:39 Dose: 4 mg - Objective Vital Signs: Vital Signs Temperature 98 F 11/25/18 09:06 Pulse Rate 64 11/25/18 09:06 Respiratory Rate 20 04/01/19 09:06 Blood Pressure 160/82 11/25/18 09:06 O2 Sat by Pulse Oximetry (%) 95 11/24/18 21:00 Constitutional: Yes: Well Nourished, No Distress, Calm Cardiovascular: Yes: Regular Rate and Rhythm, S1, S2. No: Gallop, Murmur, Rub Respiratory: Yes: Regular, CTA Bilaterally. No: Accessory Muscle Use, Wheezes Extremities: No: Cold Edema: No (SCDs) Neurological: Yes: Alert, Oriented Psychiatric: No: Agitated Labs: CBC, BMP 11/25/18 06:30 11/25/18 06:30 INR, PTT INR 1.19 (0.82-1.09) 11/16/18 14:35 Assessment/Plan EKG: initial sinus, LVH, first deg AVB EKG 11/22 afib with RVR rate 135 bpm Echo 11/2016 LV mildly dilated, nl LV function, sigmoid septum, RV nl, LA severely dilated, RA mildly enlarged, mild MR, mild TR, at least mild pulm HTN, RVSP at least 42 mmHg tele: AF to 150s bpm-->NSR afib - in post op setting after ex lap, PAN - hold AC until clear per surgery (hence also deferring DCCV until can reliably take AC) - 11/25: converted spontaneously now to sinus--can d/c diltiazem gtt SBO s/p ex lap, PAN - manage per surgery, currently NPO HTN - bp chronically suboptimal, recently titrating meds over past several months as outpatient with partial response - holding PO meds here, BP reasonablly controlled--restart home regimen when taking PO pulm HTN, chronic diastolic HF - mild to mod, likely 2/2 diastolic CHF - appears euvolemic DM - manage per primary HLD - holding statin, restart when taking PO CHACHA on CKD - Cr improved, stable
--- NOTE | 2018-11-25 11:03 | EKG ---
Test Reason : Blood Pressure : / mmHG Vent. Rate : 135 BPM Atrial Rate : 110 BPM P-R Int : 000 ms QRS Dur : 120 ms QT Int : 332 ms P-R-T Axes : 000 004 134 degrees QTc Int : 498 ms ATRIAL FIBRILLATION WITH RAPID VENTRICULAR RESPONSE NON-SPECIFIC INTRA-VENTRICULAR CONDUCTION DELAY MARKED ST ABNORMALITY, POSSIBLE INFERIOR SUBENDOCARDIAL INJURY ABNORMAL ECG WHEN COMPARED WITH ECG OF 16-NOV-2018 15:26, ATRIAL FIBRILLATION HAS REPLACED SINUS RHYTHM VENT. RATE HAS INCREASED BY 70 BPM Confirmed by ALBINA LEUNG MD ([id number]) on 11/25/2018 11:02:57 AM Referred By: Confirmed By:ALBINA LEUNG MD
--- NOTE | 2018-11-25 12:41 | ECHO ---
Name: LILO VENTURA Exam:Adult Echocardiogram Study Date: 11/25/2018 10:34 AM Age: 72 yrs Reason For Study: ATRIAL FIBRILLATION Height: 65 in Weight: 219 lb BSA: 2.1 m2 MMode/2D Measurements & Calculations IVSd: 0.96 cm Ao root diam: 2.9 cm LVIDd: 4.5 cm LA dimension: 4.7 cm LVIDs: 2.9 cm LVPWd: 0.93 cm EDV(Teich): 92.7 ml LVOT diam: 2.1 cm ESV(Teich): 32.5 ml Doppler Measurements & Calculations Ao V2 max: 196.7 cm/sec LV V1 max P.5 mmHg Ao max P.5 mmHg LV V1 mean P.4 mmHg Ao V2 mean: 120.7 cm/sec LV V1 max: 105.6 cm/sec Ao mean P.8 mmHg LV V1 mean: 73.4 cm/sec Ao V2 VTI: 39.9 cm LV V1 VTI: 22.7 cm KEVEN(I,D): 1.9 cm2 KEVEN(V,D): 1.8 cm2 SV(LVOT): 77.4 ml TR max solis: 335.5 cm/sec TR max P.1 mmHg Med Peak E' Solis: 5.2 cm/sec Lat Peak E' Solis: 9.7 cm/sec Procedure The study was technically adequate with some images being suboptimal in quality. Left Ventricle The left ventricular size, thickness and function are normal. Left ventricular systolic function is n ormal. Ejection Fraction = 65-70%. Right Ventricle The right ventricle is normal in size and function. Atria The left atrium is mildly dilated. Right atrial size is normal. Mitral Valve The mitral valve is grossly normal. There is trace to mild mitral regurgitation. Tricuspid Valve There is mild tricuspid regurgitation. Right ventricular systolic pressure is elevated at 45 mmhg. Aortic Valve The aortic valve opens well. The aortic valve is trileaflet. Trace aortic regurgitation. Pulmonic Valve The pulmonic valve is not well visualized. There is no pulmonic valvular regurgitation. Great Vessels The aortic root is normal size. Pericardium/Pleura There is no pericardial effusion. Interpretation Summary There is no comparison study available. Trace aortic regurgitation. The left ventricular size, thickness and function are normal The right ventricle is normal in size and function. The left atrium is mildly dilated. Left ventricular systolic function is normal. Ejection Fraction = 65-70%. There is mild tricuspid regurgitation. Te Pabon MD 11/25/2018 12:41 PM
--- NOTE | 2018-11-25 13:00 | PN ---
Progress Note, Physician Chief Complaint: patient seen and examined awake alert POD 5 s/p exploratory laprotomy NSR cardizem drip has not stopped ng tube patient had BM today - Current Medication List Current Medications: Active Medications Acetaminophen (Ofirmev Injection -) 1,000 mg IVPB Q6H PRN PRN Reason: PAIN LEVEL 6-10 Last Admin: 11/25/18 07:09 Dose: 1,000 mg Diltiazem HCl (Cardizem Injection -) 10 mg IVPUSH Q4H PRN PRN Reason: TACHYCARDIA Last Admin: 11/24/18 17:50 Dose: 10 mg Heparin Sodium (Porcine) (Heparin -) 5,000 unit SQ TID [facility] Last Admin: 11/25/18 06:39 Dose: 5,000 unit Hydromorphone HCl (Dilaudid Vial -) 2 mg IVPB Q6H PRN PRN Reason: PAIN LEVEL 7 - 10 Last Admin: 11/25/18 10:06 Dose: 2 mg Piperacillin Sod/Tazobactam (Sod 3.375 gm/ Dextrose) 50 mls @ 100 mls/hr IVPB Q8H-IV [facility]; Protocol Last Admin: 11/25/18 10:01 Dose: 100 mls/hr Potassium Chloride/Sodium Chloride (1/2ns+20meq Kcl) 20 meq in 1,000 mls @ 125 mls/hr IV ASDIR [facility] Last Admin: 11/24/18 16:35 Dose: 125 mls/hr Insulin Aspart (Novolog Vial Sliding Scale -) 1 vial SQ ACHS [facility]; Protocol Last Admin: 11/25/18 06:39 Dose: 4 units Metoprolol Tartrate (Lopressor Injection -) 5 mg IVPUSH Q4H PRN PRN Reason: HYPERTENSION Last Admin: 11/24/18 15:50 Dose: 5 mg Ondansetron HCl (Zofran Injection) 4 mg IVPUSH Q4H PRN PRN Reason: NAUSEA AND/OR VOMITING Last Admin: 11/25/18 06:39 Dose: 4 mg - Objective Vital Signs: Vital Signs Temperature 98 F 11/25/18 09:06 Pulse Rate 64 11/25/18 09:06 Respiratory Rate 20 11/25/18 09:06 Blood Pressure 160/82 11/25/18 09:06 O2 Sat by Pulse Oximetry (%) 100 11/25/18 09:00 Constitutional: Yes: Calm HENT: Yes: Other (NG tube) Cardiovascular: Yes: Regular Rate and Rhythm, S1, S2 Respiratory: Yes: CTA Bilaterally Gastrointestinal: Yes: Normal Bowel Sounds, Other (midlline abhay) Labs: CBC, BMP 11/25/18 06:30 11/25/18 06:30 INR, PTT INR 1.19 (0.82-1.09) 11/16/18 14:35 Problem List - Problems (1) Abdominal pain Assessment/Plan: Note: Operative Date: 11/20/18 Pre-Operative Diagnosis: small bowel obstruction, incisional hernia Operation: laparotomy with extensive lysis of adhesions (2 hours), suture repair of right upper quadrant incisional hernia iv zosyn Findings: mesh (Goretex?) in midline - partially divided, left in situ; matted loops of small bowel in right abdomen, incisional hernia RUQ and right lateral abdomen, evidence of previous Jackelin-en-Y bowel reconstruction with dilation of stagnant loop; tiny enterotomy made in proximal SB in RUQ, repaired with sutures with minimal leakage; no resection performed Post-Operative Diagnosis: Other (same as preop with stagnant Jackelin-en-Y bowel loop in RUQ, extensive intestinal adhesions) Surgeon: Neal Rodney [employer] Installer: Jace Piña Anesthesiologist/RECEIVABLE MANAGER: Chuckie Nguyen Anesthesia: General, Local (20ML 0.5% marcaine) Specimens Removed: no resection Estimated Blood Loss (mls): 100 Drains & Tubes with Location: preop [place] NGT; Salas placed and left Drains, Volume Out (mls): 500 (UOP) Fluid Volume Replaced (mls): 1,800 (crystalloid) Operative Report Dictated: Yes dvt ppx ng tube to suction pain control iv abx zosyn Code(s): R10.9 - UNSPECIFIED ABDOMINAL PAIN Qualifiers: Abdominal location: unspecified location Qualified Code(s): R10.9 - Unspecified abdominal pain (2) Atrial fibrillation with RVR Assessment/Plan: now in NSR hold AC until cleared by surgery Code(s): I48.91 - UNSPECIFIED ATRIAL FIBRILLATION (3) S/P ureteral stent placement Assessment/Plan: seen by urology needs laser lithotripsy as an outpatient Code(s): Z96.0 - PRESENCE OF UROGENITAL IMPLANTS (4) Diabetes mellitus type 2 in obese Assessment/Plan: bgm sliding scale currently NPO with ng tube Code(s): E11.69 - TYPE 2 DIABETES MELLITUS WITH OTHER SPECIFIED COMPLICATION; E66.9 - OBESITY, UNSPECIFIED
[2018-11-25] MEDS: SODIUM CHLORIDE 0.45%/POT 20 MEQ/1,000 ML INFUS.BAG IV SCH (14:00)
--- NOTE | 2018-11-25 16:57 | PN ---
Progress Note, Physician History of Present Illness: AWAKE, ALERT IN BED NO C/O PAIN NGT IN PLACE +BM NO C/O F/C WBC WNL - Current Medication List Current Medications: Active Medications Acetaminophen (Ofirmev Injection -) 1,000 mg IVPB Q6H PRN PRN Reason: PAIN LEVEL 6-10 Last Admin: 11/25/18 16:21 Dose: 1,000 mg Diltiazem HCl (Cardizem Injection -) 10 mg IVPUSH Q4H PRN PRN Reason: TACHYCARDIA Last Admin: 11/24/18 17:50 Dose: 10 mg Heparin Sodium (Porcine) (Heparin -) 5,000 unit SQ TID [facility] Last Admin: 11/25/18 06:39 Dose: 5,000 unit Hydromorphone HCl (Dilaudid Vial -) 2 mg IVPB Q6H PRN PRN Reason: PAIN LEVEL 7 - 10 Last Admin: 11/25/18 10:06 Dose: 2 mg Piperacillin Sod/Tazobactam (Sod 3.375 gm/ Dextrose) 50 mls @ 100 mls/hr IVPB Q8H-IV [facility]; Protocol Last Admin: 11/25/18 10:01 Dose: 100 mls/hr Potassium Chloride/Sodium Chloride (1/2ns+20meq Kcl) 20 meq in 1,000 mls @ 125 mls/hr IV ASDIR [facility] Last Admin: 11/24/18 16:35 Dose: 125 mls/hr Insulin Aspart (Novolog Vial Sliding Scale -) 1 vial SQ ACHS [facility]; Protocol Last Admin: 11/25/18 15:21 Dose: Not Given Metoprolol Tartrate (Lopressor Injection -) 5 mg IVPUSH Q4H PRN PRN Reason: HYPERTENSION Last Admin: 11/24/18 15:50 Dose: 5 mg Ondansetron HCl (Zofran Injection) 4 mg IVPUSH Q4H PRN PRN Reason: NAUSEA AND/OR VOMITING Last Admin: 11/25/18 06:39 Dose: 4 mg - Objective Vital Signs: Vital Signs Temperature 97.8 F 11/25/18 14:00 Pulse Rate 77 11/25/18 14:00 Respiratory Rate 20 11/25/18 14:00 Blood Pressure 159/80 11/25/18 14:00 O2 Sat by Pulse Oximetry (%) 100 11/25/18 09:00 Constitutional: Yes: No Distress, Obese Eyes: Yes: Conjunctiva Clear Cardiovascular: Yes: Regular Rate and Rhythm, S1, S2 Gastrointestinal: Yes: Normal Bowel Sounds Labs: CBC, BMP 11/25/18 06:30 11/25/18 06:30 INR, PTT INR 1.19 (0.82-1.09) 11/16/18 14:35 Assessment/Plan POST OP LAPAROTOMY/ PAN RECENT UTI/ URETERAL STENT PLACEMENT D/C ZOSYN, OBSERVE OFF DISCUSSED WITH SURGERY
--- NOTE | 2018-11-25 17:00 | PN ---
Progress Note, Physician History of Present Illness: POD5 s/p extensive lysis of intestinal adhesions for developing SBO, with suture repair of small RUQ incisional hernia from inside, with findings of previous intestinal reconstruction, likely hepaticojejunostomy, done years ago after post-cholecystectomy complications per pt. Pt postop had new onset of afib with RVR and was transferred to telemetry, had cardizem drip which is now off for conversion overnight to sinus rhythm. Seen and examined in bed. She states she was feeling sick early this morning/from overnight - had bloating and felt NG wasn't functioning well, but it was irrigated, and she sat up in chair earlier today and had another BM, and is now feeling much better. NG output light brown with some reddish at times. Salas removed last night, voiding on commode with + bowel function. Pain minimal, controlled with prn Tylenol and Dilaudid. Using ice chips periodically, ~300ml out NGT since yesterday. Family present. - Current Medication List Current Medications: Active Medications Acetaminophen (Ofirmev Injection -) 1,000 mg IVPB Q6H PRN PRN Reason: PAIN LEVEL 6-10 Last Admin: 11/25/18 16:21 Dose: 1,000 mg Diltiazem HCl (Cardizem Injection -) 10 mg IVPUSH Q4H PRN PRN Reason: TACHYCARDIA Last Admin: 11/24/18 17:50 Dose: 10 mg Heparin Sodium (Porcine) (Heparin -) 5,000 unit SQ TID [facility] Last Admin: 11/25/18 06:39 Dose: 5,000 unit Hydromorphone HCl (Dilaudid Vial -) 2 mg IVPB Q6H PRN PRN Reason: PAIN LEVEL 7 - 10 Last Admin: 11/25/18 10:06 Dose: 2 mg Piperacillin Sod/Tazobactam (Sod 3.375 gm/ Dextrose) 50 mls @ 100 mls/hr IVPB Q8H-IV [facility]; Protocol Last Admin: 11/25/18 10:01 Dose: 100 mls/hr Potassium Chloride/Sodium Chloride (1/2ns+20meq Kcl) 20 meq in 1,000 mls @ 125 mls/hr IV ASDIR [facility] Last Admin: 11/24/18 16:35 Dose: 125 mls/hr Insulin Aspart (Novolog Vial Sliding Scale -) 1 vial SQ ACHS [facility]; Protocol Last Admin: 11/25/18 15:21 Dose: Not Given Metoprolol Tartrate (Lopressor Injection -) 5 mg IVPUSH Q4H PRN PRN Reason: HYPERTENSION Last Admin: 11/24/18 15:50 Dose: 5 mg Ondansetron HCl (Zofran Injection) 4 mg IVPUSH Q4H PRN PRN Reason: NAUSEA AND/OR VOMITING Last Admin: 11/25/18 06:39 Dose: 4 mg - Objective Vital Signs: Vital Signs Temperature 97.8 F 11/25/18 14:00 Pulse Rate 77 11/25/18 14:00 Respiratory Rate 20 11/25/18 14:00 Blood Pressure 159/80 11/25/18 14:00 O2 Sat by Pulse Oximetry (%) 100 11/25/18 09:00 Vital Signs Period Temp Pulse Resp BP Sys/Pascual Pulse Ox Last 24 Hr 97.7 F-98.8 F 64-149 16-20 144-165/65-93 95-100 Intake & Output 11/25/18 11/25/18 11/25/18 07:59 15:59 23:59 Intake Total 1815 Output Total 875 800 Balance 940 -800 Intake: IV 1565 1/2NS+20MEQ KCL 20 meq In 1500 1,000 ml @ 125 mls/hr IV ASDIR [facility] Rx#: [id number] Cardizem Injection - 125 65 mg In Normal Saline - 100 ml @ 5 MG/HR 5 mls/hr IVPB TITR [facility] Rx#: [id number] IVPB 250 Output: Gastric Drainage 375 Urine 500 800 Void 500 800 Other: Voiding Method Bedside Commode Constitutional: Yes: No Distress, Calm, Obese Eyes: Yes: Conjunctiva Clear, EOM Intact HENT: Yes: Atraumatic, Normocephalic, Other (NG in place) Gastrointestinal: Yes: Soft, Abdomen, Obese, Hypoactive Bowel Sounds (present in at least 2 quadrants, not quite full yet). No: Tenderness (minimal if any, RUQ or incisional) Genitourinary: No: Salas Present, Incontinence Extremities: No: Cool, Cyanosis Integumentary: Yes: Incision (midline w/abhay). No: Jaundice, Rash Wound/Incision: Yes: Clean/Dry, Well Approximated, Abhay Intact, Open to air. No: Reddened Neurological: Yes: Alert, Oriented Labs: CBC, BMP 11/25/18 06:30 11/25/18 06:30 CMP Sodium 145 mmol/L (136-145) 11/25/18 06:30 Potassium 3.6 mmol/L (3.5-5.1) 11/25/18 06:30 Chloride 109 mmol/L (98-107) H 11/25/18 06:30 Carbon Dioxide 29 mmol/L (21-32) 11/25/18 06:30 Anion Gap 7 MMOL/L (8-16) L 11/25/18 06:30 BUN 18 mg/dL (7-18) 11/25/18 06:30 Creatinine 1.3 mg/dL (0.55-1.3) 11/25/18 06:30 Creat Clearance w eGFR 40.04 (>60) 11/25/18 06:30 POC Glucometer 214 UNITS (80-120) 11/25/18 05:24 Random Glucose 216 mg/dL (74-106) H 11/25/18 06:30 Hemoglobin A1c % 8.9 % (4.2-6.3) H 11/17/18 06:40 Lactic Acid 1.3 mmol/L (0.4-2.0) 11/19/18 22:35 Calcium 8.1 mg/dL (8.5-10.1) L 11/25/18 06:30 Phosphorus 3.0 mg/dL (2.5-4.9) 11/24/18 05:30 Magnesium 1.9 mg/dL (1.8-2.4) 11/25/18 06:30 Total Bilirubin 1.1 mg/dL (0.2-1) H 11/22/18 06:30 AST 11 U/L (15-37) L 11/22/18 06:30 ALT 13 U/L (13-61) 11/22/18 06:30 Alkaline Phosphatase 80 U/L (45-117) 11/22/18 06:30 LD Total 152 U/L (84-246) 11/19/18 20:00 Troponin I 0.03 ng/ml (0.00-0.05) 11/16/18 14:18 C-Reactive Protein 1.9 MG/DL (0.00-0.3) H 11/19/18 07:00 Total Protein 5.9 g/dl (6.4-8.2) L 11/22/18 06:30 Albumin 2.1 g/dl (3.4-5.0) L 11/22/18 06:30 Total Amylase 50 U/L (25-115) 11/19/18 20:00 Lipase 154 U/L (73-393) 11/19/18 20:00 Problem List - Problems (1) Small bowel obstruction Assessment/Plan: POD5 s/p extensive lysis of adhesions and RUQ incisional hernia repair s/p likely hepaticojejunostomy in past with intestinal reconstruction - with dilated/stagnant loop of anastomotic area had small enterotomy repaired in proximal SB with small yellow fluid leakage, minimal contamination doing well from postop standpoint incision c/d/i with abahy continue NPO/IVF, NGT to intermittent suction, with sparing ice chips will clamp NGT overnight into am to ensure no nausea and prepare for removal pain controlled with prn meds - Tylenol and/or Dilaudid - encouraged pt to use as needed postop antibiotics ok to stop per ID trend labs OOB to chair and with assist as often as able Salas out last night, voiding ok, + bowel function continue strict I/O's discussed with Drs. Templeton and Arthur Code(s): K56.609 - UNSP INTESTNL OBST, UNSP TO PARTIAL VERSUS COMPLETE OBST (2) Atrial fibrillation with RVR Assessment/Plan: keep lytes repleted cardiology on board cardizem drip off, converted to sinus may be able to resume meds with sips tomorrow if ok overnight with NG clamped echo noted anticipate improved HR control when able to resume po meds hopefully within a day or two Code(s): I48.91 - UNSPECIFIED ATRIAL FIBRILLATION (3) Hypertension Assessment/Plan: to resume clonidine and meds per cardio once back on po Code(s): I10 - ESSENTIAL (PRIMARY) HYPERTENSION Qualifiers: Hypertension type: essential hypertension Qualified Code(s): I10 - Essential (primary) hypertension (4) Diabetes mellitus type 2 in obese Assessment/Plan: maintain glucose control FS with SSI coveraqe A1C noted high Code(s): E11.69 - TYPE 2 DIABETES MELLITUS WITH OTHER SPECIFIED COMPLICATION; E66.9 - OBESITY, UNSPECIFIED (5) S/P ureteral stent placement Assessment/Plan: urology has seen will have completed abx course stent management per uro - pt may need outpatient laser lithotripsy per their note Code(s): Z96.0 - PRESENCE OF UROGENITAL IMPLANTS (6) Gout Assessment/Plan: home med on hold while npo Code(s): M10.9 - GOUT, UNSPECIFIED Qualifiers: Gout site: toe Gout etiology: unspecified cause Chronicity: unspecified Laterality: unspecified laterality Qualified Code(s): M10.9 - Gout, unspecified (7) CKD (chronic kidney disease) stage 3, GFR 30-59 ml/min Assessment/Plan: BUN/Cr coming back down - UOP good likely getting close to baseline nephrology following continue IVF for now Code(s): N18.3 - CHRONIC KIDNEY DISEASE, STAGE 3 (MODERATE) (8) RUQ pain Assessment/Plan: initial pain resolved postop tenderness minimal, appropriate Code(s): R10.11 - RIGHT UPPER QUADRANT PAIN (9) History of cholecystectomy Code(s): Z90.49 - ACQUIRED ABSENCE OF OTHER SPECIFIED PARTS OF DIGESTIVE TRACT (10) History of common bile duct surgery Code(s): Z98.890 - OTHER SPECIFIED POSTPROCEDURAL STATES
--- NOTE | 2018-11-25 17:29 | CONSULT ---
Consult Consult Specialty:: UROLOGY Reason for Consultation:: left hydronephrosis - History of Present Illness Chief Complaint: Left flank pain History of Present Illness: 72 Y/O Female patient with history of HT. DM and Bowel obstruction S/P lapratomy on NG tube, she has history of left JJstent insertion in early october in [place], last CT scan week ago show jj stent inplace and mild hydronephrosis. she is post op on NG tube. WBC 10.0 BUN 18 S.CREAT 1.3 off alcantar catheter Renal US was ordere. 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) ...: No Infectious Disease: No: AIDS Psych: No: Addictions Musculoskeletal: Yes: Chronic low back pain (s/p low back surgery/disc issues in past) Rheumatology: Yes: Gout Endocrine: Yes: Diabetes Mellitus, Other (adrenal adenoma) - Past Surgical History Past Surgical History: Yes: Cholecystectomy, Colonoscopy, Hernia Repair (ventral /?umbilical with mesh years ago), Hysterectomy, Joint Replacement (bilateral knee total knee replacement), Laminectomy (Lumbar spine), Stent (left ureteral ( placed early this month in [place])), Upper Endoscopy - Alcohol/Substance Use Hx Alcohol Use: No History of Substance Use: reports: None - Smoking History Smoking history: Never smoked Have you smoked in the past 12 months: No Aproximately how many cigarettes per day: 0 - Social History Usual Living Arrangement: Alone ADL: Independent 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[employer], 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 History of Recent Travel: Yes ([place], [place] from June to 11/06/18) Home Medications - Allergies Allergies/Adverse Reactions: Allergies Allergy/AdvReac Type Severity Reaction Status Date / Time latex Allergy Severe Swelling Verified 11/16/18 13:55 insulin lispro [From Humalog] Allergy Intermediate Generalized Verified 13:55 rash and itching naproxen [From Naprosyn] Allergy Swelling Verified 11/16/18 13:55 oxaprozin [From Daypro] Allergy Swelling Verified 11/16/18 13:55 saxagliptin HCl Allergy leg edema Verified 11/16/18 13:55 [From Onglyza] latex Allergy Severe Uncoded 11/16/18 13:55 Mushrooms Allergy Uncoded 11/16/18 13:55 naproxen Allergy Uncoded 11/16/18 13:55 - Home Medications Home Medications: Ambulatory Orders Cholecalciferol (Vitamin D3) [Vitamin D3] 50 mcg PO DAILY 10/19/16 Insulin (Levemir) [Levemir Vial] 55 unit SQ ASDIR 10/19/16 Allopurinol [Zyloprim -] 100 mg PO DAILY 12/20/16 Insulin (LOG) Aspart [NovoLOG -] 7 units SQ DAILY 01/16/17 Aspirin [ASA -] 81 mg PO DAILY 03/19/18 Amlodipine Besylate 5 mg PO DAILY 11/16/18 Atorvastatin Calcium 10 mg PO DAILY 11/16/18 Chlorthalidone 25 mg PO DAILY 11/16/18 Ciprofloxacin [Cipro (Restricted To Id)] 500 mg PO BID 11/16/18 Potassium Citrate [Potassium Citrate ER] 30 meq PO BID 11/16/18 Family Disease History - Family Disease History Family Disease History: Other: Father ( 84), Mother (lived to 96) Other Family History: NO IBD or cancer, Pat aunt had DM Physical Exam Vital Signs: Vital Signs Temperature 97.8 F 11/25/18 14:00 Pulse Rate 77 11/25/18 14:00 Respiratory Rate 20 11/25/18 14:00 Blood Pressure 159/80 11/25/18 14:00 O2 Sat by Pulse Oximetry (%) 100 11/25/18 09:00 Labs: CBC, BMP 11/25/18 06:30 11/25/18 06:30 Assessment/Plan History of left hydronephrosis S/P left jj stent insertion in [place] 10/2018 Plan: Renal US then if no renal stone, we can arrange stent removal as outpatient procedure after recovery from her last surgery
--- NOTE | 2018-11-25 18:11 | HOSP ---
Subjective - Review of Symptoms Events since last encounter: Nurse reports pt has headache despite being treated with IV APAP. BP 183/101, hydralazine 10mg IVP ordered x 1 dose. In the morning Primary team to assess meds and adjust accordingly for improved control Physical Examination Vital Signs: Vital Signs Temperature 98 F 11/25/18 17:57 Pulse Rate 80 11/25/18 17:57 Respiratory Rate 20 11/25/18 17:57 Blood Pressure 183/101 H 11/25/18 17:57 O2 Sat by Pulse Oximetry (%) 100 11/25/18 09:00 Labs: CBC, BMP 11/25/18 06:30 11/25/18 06:30
[2018-11-25] MEDS ORDERED: hydrALAZINE HCL 20 MG/ML VIAL IVPUSH ONE (18:30)
[2018-11-25] MEDS: dilTIAZem HCL 50 MG/10 ML - 10 ML VIAL IVPUSH PRN (23:12)
[2018-11-26] MEDS: DILTIAZEM INJECTION 125 MG in SODIUM CHLORIDE 100 ML IVPB SCH ×4 (00:15→23:00)
[2018-11-26] MEDS ORDERED: dilTIAZem HCL 50 MG/10 ML - 10 ML VIAL IVPUSH ONE (00:45)
--- NOTE | 2018-11-26 00:46 | HOSP ---
Subjective - Review of Symptoms Events since last encounter: Hospitalist Encounter Notified by RN that the patient's HR appears in SVT 150's. Per RN discussed with Cardiology and gave Cardizem IVP, but appears IV site not patent. Subjective: Arrived to bedside, patient is asleep but arousable, patient denies CP, palpitations or SOB. Patient has NGT with dark brown drainage in tubing and collection canister. Plan: EKG stat Cardizem 10mg IVP Restart Cardizem Drip titrate Physical Examination Vital Signs: Vital Signs Temperature 98.2 F 11/25/18 20:34 Pulse Rate 83 11/25/18 20:34 Respiratory Rate 20 11/25/18 20:34 Blood Pressure 165/92 11/25/18 20:34 O2 Sat by Pulse Oximetry (%) 98 11/25/18 20:34 Constitutional: Yes: Well Nourished, No Distress, Calm HENT: Yes: Other (NGT to L- nare to suction- brown drainage) Cardiovascular: Yes: Tachycardia, Pulse Irregular, S1, S2 Respiratory: Yes: WNL, Regular, CTA Bilaterally, On Nasal O2 Gastrointestinal: Yes: Other Neurological: Yes: WNL, Alert, Oriented, Cran Nerves II-XII Intact Psychiatric: Yes: WNL, Alert, Oriented Labs: CBC, BMP 11/25/18 06:30 11/25/18 06:30
[2018-11-26] MEDS: METOPROLOL TARTRATE 5 MG/5 ML VIAL IVPUSH PRN ×3 (01:56→19:03)
[2018-11-26] MEDS: HYDROmorphone HCl 2 MG/ML VIAL IVPB PRN ×2 (03:29→13:01)
[2018-11-26] MEDS: HEPARIN NA (PORCINE) 5,000 UNITS/ML 1ML VIAL SQ SCH ×3 (05:35→22:00)
[2018-11-26] MEDS: INSULIN SLIDING SCALE (NOVOLOG) 1 VIAL SQ SCH ×4 (06:13→22:30)
[2018-11-26 07:24] LABS: ALK PHOS 86 U/L (45-117); ANION GAP 10 MMOL/L (8-16); BILIRUBIN,TOTAL 0.7 mg/dL (0.2-1); BLOOD UREA NITROGEN 14 mg/dL (7-18); CALCIUM 8.4 mg/dL (8.5-10.1); CHLORIDE 104 mmol/L (98-107); CO2 30 mmol/L (21-32); CREATININE 1.2 mg/dL (0.55-1.3); GLUCOSE,RANDOM 291 mg/dL (74-106); MAGNESIUM 1.7 mg/dL (1.8-2.4); POTASSIUM 3.2 mmol/L (3.5-5.1); SGOT/AST 13 U/L (15-37); SGPT/ALT 8 U/L (13-61); SODIUM 143 mmol/L (136-145); TOT PROT 6.1 g/dl (6.4-8.2)
[2018-11-26 09:36] LABS: HEMATOCRIT 27.5 % (32.4-45.2); HEMOGLOBIN 8.8 GM/dL (10.7-15.3); MCH 25.6 pg (25.7-33.7); MEAN CELL VOLUME 80.2 fl (80-96); RBC 3.42 M/mm3 (3.60-5.2); WHITE BLOOD COUNT 11.6 K/mm3 (4.0-10.0)
[2018-11-26 09:37] LABS: BASO % 0.3 % (0-2.0); EOS % 1.7 % (0-4.5); LYMPH % 6.7 % (8-40); MEAN PLT VOLUME 9.4 fl (7.5-11.1); NEUT % 82.3 % (42.8-82.8); PLATELET COUNT 288 K/MM3 (134-434); RDW 19.3 % (11.6-15.6)
[2018-11-26] MEDS ORDERED: TRIPLE LUMEN FLUSH 4 ML ML IVPUSH PRN (09:37)
--- NOTE | 2018-11-26 09:40 | PN ---
Progress Note, Physician - Current Medication List Current Medications: Active Medications Acetaminophen (Ofirmev Injection -) 1,000 mg IVPB Q6H PRN PRN Reason: PAIN LEVEL 6-10 Last Admin: 11/25/18 16:21 Dose: 1,000 mg Diltiazem HCl (Cardizem Injection -) 10 mg IVPUSH Q4H PRN PRN Reason: TACHYCARDIA Last Admin: 11/25/18 23:12 Dose: 10 mg Heparin Sodium (Porcine) (Heparin -) 5,000 unit SQ TID [facility] Last Admin: 11/26/18 05:35 Dose: 5,000 unit Hydromorphone HCl (Dilaudid Vial -) 2 mg IVPB Q6H PRN PRN Reason: PAIN LEVEL 7 - 10 Last Admin: 11/26/18 03:29 Dose: 2 mg IV Flush (Triple Lumen Flush) 4 ml IVPUSH PRN PRN PRN Reason: Protocol Potassium Chloride/Sodium Chloride (1/2ns+20meq Kcl) 20 meq in 1,000 mls @ 125 mls/hr IV ASDIR [facility] Last Admin: 11/25/18 14:00 Dose: 125 mls/hr Diltiazem HCl 125 mg/ Sodium (Chloride) 125 mls @ 10 mls/hr IVPB TITR [facility]; Protocol Last Titration: 11/26/18 00:30 Dose: 15 mg/hr, 15 mls/hr Insulin Aspart (Novolog Vial Sliding Scale -) 1 vial SQ ACHS [facility]; Protocol Last Admin: 11/26/18 06:13 Dose: 6 units Metoprolol Tartrate (Lopressor Injection -) 5 mg IVPUSH Q4H PRN PRN Reason: HYPERTENSION Last Admin: 11/26/18 01:56 Dose: 5 mg Ondansetron HCl (Zofran Injection) 4 mg IVPUSH Q4H PRN PRN Reason: NAUSEA AND/OR VOMITING Last Admin: 11/25/18 06:39 Dose: 4 mg - Objective Vital Signs: Vital Signs Temperature 99.0 F 11/26/18 05:00 Pulse Rate 134 H 11/26/18 09:00 Respiratory Rate 20 11/26/18 09:00 Blood Pressure 160/92 11/26/18 09:00 O2 Sat by Pulse Oximetry (%) 98 11/25/18 20:34 Labs: CBC, BMP 11/26/18 05:30 11/26/18 05:30 INR, PTT INR 1.19 (0.82-1.09) 11/16/18 14:35 Problem List - Problems (1) Small bowel obstruction Assessment/Plan: Operative Date: 11/20/18 Pre-Operative Diagnosis: small bowel obstruction, incisional hernia Operation: laparotomy with extensive lysis of adhesions (2 hours), suture repair of right upper quadrant incisional hernia iv zosyn Findings: mesh (Goretex?) in midline - partially divided, left in situ; matted loops of small bowel in right abdomen, incisional hernia RUQ and right lateral abdomen, evidence of previous Jackelin-en-Y bowel reconstruction with dilation of stagnant loop; tiny enterotomy made in proximal SB in RUQ, repaired with sutures with minimal leakage; no resection performed Post-Operative Diagnosis: Other (same as preop with stagnant Jackelin-en-Y bowel loop in RUQ, extensive intestinal adhesions) Surgeon: Neal Rodney Ham Rolling Machine Operator: Jace Piañ Anesthesiologist/GEODETIC SURVEY DIRECTOR: Chuckie Nguyen Anesthesia: General, Local (20ML 0.5% marcaine) Specimens Removed: no resection Estimated Blood Loss (mls): 100 Drains & Tubes with Location: preop [place] NGT; Salas placed and left Drains, Volume Out (mls): 500 (UOP) Fluid Volume Replaced (mls): 1,800 (crystalloid) Operative Report Dictated: Yes dvt ppx ng tube per surgery pain control iv abx zosyn Code(s): K56.609 - UNSP INTESTNL OBST, UNSP TO PARTIAL VERSUS COMPLETE OBST (2) Atrial fibrillation with RVR Assessment/Plan: rapid hold AC until cleared by surgery cardizem drip Code(s): I48.91 - UNSPECIFIED ATRIAL FIBRILLATION (3) Head ache Assessment/Plan: ct head control bp Code(s): R51 - HEADACHE (4) Diabetes mellitus type 2 in obese Assessment/Plan: bgm sliding scale currently NPO with ng tube Code(s): E11.69 - TYPE 2 DIABETES MELLITUS WITH OTHER SPECIFIED COMPLICATION; E66.9 - OBESITY, UNSPECIFIED (5) Hypertension Assessment/Plan: add vasotec Code(s): I10 - ESSENTIAL (PRIMARY) HYPERTENSION Qualifiers: Hypertension type: essential hypertension Qualified Code(s): I10 - Essential (primary) hypertension (6) Hydronephrosis, left Assessment/Plan: seen by urology needs laser lithotripsy as an outpatient us Code(s): N13.30 - UNSPECIFIED HYDRONEPHROSIS
[2018-11-26] MEDS ORDERED: MAGNESIUM SULF 50% (8.12 MEQ/2 ML-1 GM VIAL) IVPB ONE (10:00)
[2018-11-26] MEDS ORDERED: DIGOXIN 0.5 MG/2 ML AMPUL IVPUSH ONE ×2 (11:15→16:15)
[2018-11-26 11:25] LABS: ANISOCYTOSIS 1+; MACROCYTOSIS 0; PLATELET ESTIMATE NORMAL
--- NOTE | 2018-11-26 11:54 | PN ---
Progress Note (short form) - Note Progress Note: s: no chest pain, palps, dizzines, lighhteadedness. Current Medications Acetaminophen (Ofirmev Injection -) 1,000 mg IVPB Q6H PRN PRN Reason: PAIN LEVEL 6-10 Last Admin: 11/25/18 16:21 Dose: 1,000 mg Diltiazem HCl (Cardizem Injection -) 10 mg IVPUSH Q4H PRN PRN Reason: TACHYCARDIA Last Admin: 11/25/18 23:12 Dose: 10 mg Enalaprilat (Vasotec Injection -) 0.625 mg IVPB Q6H-IV [facility] Heparin Sodium (Porcine) (Heparin -) 5,000 unit SQ TID [facility] Last Admin: 11/26/18 05:35 Dose: 5,000 unit Hydromorphone HCl (Dilaudid Vial -) 2 mg IVPB Q6H PRN PRN Reason: PAIN LEVEL 7 - 10 Last Admin: 11/26/18 03:29 Dose: 2 mg IV Flush (Triple Lumen Flush) 4 ml IVPUSH PRN PRN PRN Reason: Protocol Potassium Chloride/Sodium Chloride (1/2ns+20meq Kcl) 20 meq in 1,000 mls @ 125 mls/hr IV ASDIR [facility] Last Admin: 11/25/18 14:00 Dose: 125 mls/hr Diltiazem HCl 125 mg/ Sodium (Chloride) 125 mls @ 10 mls/hr IVPB TITR [facility]; Protocol Last Titration: 11/26/18 00:30 Dose: 15 mg/hr, 15 mls/hr Potassium Chloride (Potassium Chloride 10 Meq Premix Ivpb -) 10 meq in 100 mls @ 100 mls/hr IVPB Q60M [facility] Stop: 11/26/18 11:59 Insulin Aspart (Novolog Vial Sliding Scale -) 1 vial SQ ACHS [facility]; Protocol Last Admin: 11/26/18 06:13 Dose: 6 units Metoprolol Tartrate (Lopressor Injection -) 5 mg IVPUSH Q4H PRN PRN Reason: HYPERTENSION Last Admin: 11/26/18 10:01 Dose: 5 mg Ondansetron HCl (Zofran Injection) 4 mg IVPUSH Q4H PRN PRN Reason: NAUSEA AND/OR VOMITING Last Admin: 04/01/19 06:39 Dose: 4 mg Vital Signs Period Temp Pulse Resp BP Sys/Pascual Pulse Ox Last 24 Hr 97.8 F-99.0 F 14-153 20-20 142-183/80-101 98 Constitutional: Yes: Well Nourished, No Distress, Calm Cardiovascular: Yes: Regular Rate and Rhythm, S1, S2. No: Gallop, Murmur, Rub Respiratory: Yes: Regular, CTA Bilaterally. No: Accessory Muscle Use, Wheezes Extremities: No: Cold Edema: No (SCDs) Neurological: Yes: Alert, Oriented Psychiatric: No: Agitated Assessment/Plan EKG: initial sinus, LVH, first deg AVB EKG 11/22 afib with RVR rate 135 bpm Echo 11/2016 LV mildly dilated, nl LV function, sigmoid septum, RV nl, LA severely dilated, RA mildly enlarged, mild MR, mild TR, at least mild pulm HTN, RVSP at least 42 mmHg tele: afib 130s-150s afib - in post op setting after ex lap, PAN - hold AC until clear per surgery (hence also deferring DCCV until can reliably take AC) - 11/25: converted spontaneously now to sinus - 11/26: overnight converted back to afib with RVR, dilt gtt was started, initially poor IV access now has been running, no improvement with additional lopressor 5 mg IV this morning. replete K and Mg, digoxin 0.125 mg IV x 1 ordered, cont dilt gtt SBO s/p ex lap, PAN - manage per surgery, currently NPO HTN - bp chronically suboptimal, recently titrating meds over past several months as outpatient with partial response - holding PO meds here, BP reasonablly controlled--restart home regimen when taking PO pulm HTN, chronic diastolic HF - mild to mod, likely 2/2 diastolic CHF - appears euvolemic DM - manage per primary HLD - holding statin, restart when taking PO CHACHA on CKD - Cr improved, stable
--- NOTE | 2018-11-26 12:06 | PN ---
Progress Note, Physician History of Present Illness: POD6 s/p extensive lysis of intestinal adhesions for developing SBO, with suture repair of small RUQ incisional hernia from inside, with findings of previous intestinal reconstruction, likely hepaticojejunostomy, done years ago after post-cholecystectomy complications per pt. Pt postop had new onset of afib with RVR and was transferred to telemetry, had cardizem drip but converted to sinus rhythm and it was off yesterday. Overnight , she had recurrent afib with RVR and difficult IV access issues for resumption of cardizem drip and prn's. Currently has 22g IV in right thumb. NGT was clamped last night, but pt felt bloated and asked to be returned to suction. She also had headache last night and BP was noted to be quite high. Now in 140s- 150s with HR 130s-140s. She is seen and examined in bed. She is still voiding and having bowel function. Feels frustrated after her rough night, multiple IV attempts, period of restraint. She is awake but sleepy. NG output light brown. She notes "a little" abdominal pain and has had Tylenol and dilaudid prn. Taking ice chips. CT head has been ordered by primary team. Renal ultrasound also still pending for urology. She is in need of reliable IV access. Electrolyte replacements are also ordered. - Current Medication List Current Medications: Active Medications Acetaminophen (Ofirmev Injection -) 1,000 mg IVPB Q6H PRN PRN Reason: PAIN LEVEL 6-10 Last Admin: 11/25/18 16:21 Dose: 1,000 mg Diltiazem HCl (Cardizem Injection -) 10 mg IVPUSH Q4H PRN PRN Reason: TACHYCARDIA Last Admin: 11/25/18 23:12 Dose: 10 mg Enalaprilat (Vasotec Injection -) 0.625 mg IVPB Q6H-IV [facility] Heparin Sodium (Porcine) (Heparin -) 5,000 unit SQ TID [facility] Last Admin: 11/26/18 05:35 Dose: 5,000 unit Hydromorphone HCl (Dilaudid Vial -) 2 mg IVPB Q6H PRN PRN Reason: PAIN LEVEL 7 - 10 Last Admin: 11/26/18 03:29 Dose: 2 mg IV Flush (Triple Lumen Flush) 4 ml IVPUSH PRN PRN PRN Reason: Protocol Potassium Chloride/Sodium Chloride (1/2ns+20meq Kcl) 20 meq in 1,000 mls @ 125 mls/hr IV ASDIR [facility] Last Admin: 11/25/18 14:00 Dose: 125 mls/hr Diltiazem HCl 125 mg/ Sodium (Chloride) 125 mls @ 10 mls/hr IVPB TITR [facility]; Protocol Last Titration: 11/26/18 00:30 Dose: 15 mg/hr, 15 mls/hr Insulin Aspart (Novolog Vial Sliding Scale -) 1 vial SQ ACHS [facility]; Protocol Last Admin: 11/26/18 06:13 Dose: 6 units Metoprolol Tartrate (Lopressor Injection -) 5 mg IVPUSH Q4H PRN PRN Reason: HYPERTENSION Last Admin: 11/26/18 10:01 Dose: 5 mg Ondansetron HCl (Zofran Injection) 4 mg IVPUSH Q4H PRN PRN Reason: NAUSEA AND/OR VOMITING Last Admin: 11/25/18 06:39 Dose: 4 mg - Objective Vital Signs: Vital Signs Temperature 99 F 11/26/18 10:18 Pulse Rate 134 H 11/26/18 10:18 Respiratory Rate 20 11/26/18 10:18 Blood Pressure 144/95 11/26/18 10:18 O2 Sat by Pulse Oximetry (%) 98 11/25/18 20:34 Vital Signs Period Temp Pulse Resp BP Sys/Pascual Pulse Ox Last 24 Hr 97.8 F-99.0 F 14-153 20-20 142-183/80-101 98 Intake & Output 11/25/18 11/26/18 11/26/18 23:59 07:59 15:59 Intake Total 90 Output Total 250 2950 Balance -250 -2860 Intake: IV 90 Cardizem Injection - 125 90 mg In Normal Saline - 100 ml @ 10 mls/hr IVPB TITR [facility] Rx#:[id number] Output: Gastric Drainage 1450 Urine 250 1500 Void 250 1500 Other: Voiding Method Bedpan Constitutional: Yes: No Distress, Calm, Obese Eyes: Yes: Conjunctiva Clear, EOM Intact HENT: Yes: Atraumatic, Normocephalic, Other (NG in place - clamped for now) Neck: Yes: Supple, Trachea Midline Cardiovascular: Yes: Tachycardia, Pulse Irregular Respiratory: Yes: Regular, On Nasal O2 Gastrointestinal: Yes: Soft, Abdomen, Obese, Distention (some with tympany upper abdomen), Hypoactive Bowel Sounds (normal over stomach, present over other quadrants but little light), Tenderness (mild RUQ, incisional). No: Tenderness, Rebound Extremities: No: Cool, Cyanosis Integumentary: Yes: Incision (midline w/abhay). No: Jaundice, Rash Wound/Incision: Yes: Clean/Dry, Well Approximated, [place] Intact, Open to air Neurological: Yes: Alert, Oriented Labs: CBC, BMP 11/26/18 05:30 11/26/18 05:30 CMP Sodium 143 mmol/L (136-145) 11/26/18 05:30 Potassium 3.2 mmol/L (3.5-5.1) L 11/26/18 05:30 Chloride 104 mmol/L (98-107) 11/26/18 05:30 Carbon Dioxide 30 mmol/L (21-32) 11/26/18 05:30 Anion Gap 10 MMOL/L (8-16) 11/26/18 05:30 BUN 14 mg/dL (7-18) 11/26/18 05:30 Creatinine 1.2 mg/dL (0.55-1.3) 11/26/18 05:30 Creat Clearance w eGFR 43.91 (>60) 11/26/18 05:30 POC Glucometer 281 UNITS (80-120) 11/26/18 05:32 Random Glucose 291 mg/dL (74-106) H 11/26/18 05:30 Hemoglobin A1c % 8.9 % (4.2-6.3) H 11/17/18 06:40 Lactic Acid 1.3 mmol/L (0.4-2.0) 11/19/18 22:35 Calcium 8.4 mg/dL (8.5-10.1) L 11/26/18 05:30 Phosphorus 3.0 mg/dL (2.5-4.9) 11/24/18 05:30 Magnesium 1.7 mg/dL (1.8-2.4) L 11/26/18 05:30 Total Bilirubin 0.7 mg/dL (0.2-1) 11/26/18 05:30 AST 13 U/L (15-37) L 11/26/18 05:30 ALT 8 U/L (13-61) L 11/26/18 05:30 Alkaline Phosphatase 86 U/L (45-117) 11/26/18 05:30 LD Total 152 U/L (84-246) 11/19/18 20:00 Troponin I 0.03 ng/ml (0.00-0.05) 11/16/18 14:18 C-Reactive Protein 1.9 MG/DL (0.00-0.3) H 11/19/18 07:00 Total Protein 6.1 g/dl (6.4-8.2) L 11/26/18 05:30 Albumin 2.0 g/dl (3.4-5.0) L 11/26/18 05:30 Total Amylase 50 U/L (25-115) 11/19/18 20:00 Lipase 154 U/L (73-393) 11/19/18 20:00 K and Mag low - repletion ordered BUN/Cr down into near-normal range Problem List - Problems (1) Small bowel obstruction Assessment/Plan: POD6 s/p extensive lysis of adhesions and RUQ incisional hernia repair s/p likely hepaticojejunostomy in past with intestinal reconstruction - with dilated/stagnant loop of anastomotic area had small enterotomy repaired in proximal SB with small yellow fluid leakage, minimal contamination doing well from postop standpoint incision c/d/i with abhay continue NPO except ice chips, IVF, NGT reclamped for now will reassess for NG removal later today prn Tylenol and/or Dilaudid for pain off antibiotics now per ID trend labs replete lytes OOB to chair and with assist as often as able Salas out, voiding ok, + bowel function continue strict I/O's discussed with Dr. Mathew and Dr. Carolina Code(s): K56.609 - UNSP INTESTNL OBST, UNSP TO PARTIAL VERSUS COMPLETE OBST (2) Atrial fibrillation with RVR Assessment/Plan: keep lytes repleted 20g IV placed in left EJ vein by me at bedside with nurse excellent blood return and flush - secured for use cardiology following cardizem drip back on with prn's echo done and noted anticipate improved HR control when able to resume po meds Code(s): I48.91 - UNSPECIFIED ATRIAL FIBRILLATION (3) Hypertension Assessment/Plan: to resume clonidine and meds per cardio once back on po IV management for now Code(s): I10 - ESSENTIAL (PRIMARY) HYPERTENSION Qualifiers: Hypertension type: essential hypertension Qualified Code(s): I10 - Essential (primary) hypertension (4) Diabetes mellitus type 2 in obese Assessment/Plan: maintain glucose control FS with SSI coveraqe A1C noted high Code(s): E11.69 - TYPE 2 DIABETES MELLITUS WITH OTHER SPECIFIED COMPLICATION; E66.9 - OBESITY, UNSPECIFIED (5) S/P ureteral stent placement Assessment/Plan: urology has seen renal ultrasound pending stent management per uro - pt may need outpatient laser lithotripsy per their note vs simple stent removal Code(s): Z96.0 - PRESENCE OF UROGENITAL IMPLANTS (6) Gout Assessment/Plan: home med on hold while npo Code(s): M10.9 - GOUT, UNSPECIFIED Qualifiers: Gout site: toe Gout etiology: unspecified cause Chronicity: unspecified Laterality: unspecified laterality Qualified Code(s): M10.9 - Gout, unspecified (7) CKD (chronic kidney disease) stage 3, GFR 30-59 ml/min Assessment/Plan: BUN/Cr near normal/baseline range - UOP good nephrology following continue IVF for now Code(s): N18.3 - CHRONIC KIDNEY DISEASE, STAGE 3 (MODERATE) (8) RUQ pain Assessment/Plan: some pain/tenderness prn pain meds OOB as able Code(s): R10.11 - RIGHT UPPER QUADRANT PAIN (9) History of cholecystectomy Code(s): Z90.49 - ACQUIRED ABSENCE OF OTHER SPECIFIED PARTS OF DIGESTIVE TRACT (10) History of common bile duct surgery Code(s): Z98.890 - OTHER SPECIFIED POSTPROCEDURAL STATES
[2018-11-26] MEDS: KCL 10 MEQ IVPB 10 MEQ/100 ML INFUS.BAG IVPB SCH ×2 (12:24→14:26)
--- NOTE | 2018-11-26 14:44 | EKG ---
Test Reason : Blood Pressure : / mmHG Vent. Rate : 077 BPM Atrial Rate : 077 BPM P-R Int : 182 ms QRS Dur : 122 ms QT Int : 416 ms P-R-T Axes : 084 -10 132 degrees QTc Int : 470 ms SINUS RHYTHM WITH PREMATURE ATRIAL COMPLEXES LEFT VENTRICULAR HYPERTROPHY WITH QRS WIDENING AND REPOLARIZATION ABNORMALITY ABNORMAL ECG WHEN COMPARED WITH ECG OF 23-NOV-2018 00:25, SINUS RHYTHM HAS REPLACED ATRIAL FIBRILLATION VENT. RATE HAS DECREASED BY 52 BPM Confirmed by Ariel Ramirez ([id number]) on 11/26/2018 2:44:25 PM Referred By: Confirmed By:Ariel Ramirez
[2018-11-26] MEDS: ENALAPRILAT DIHYDRATE 1.25 MG/1 ML VIAL IVPB SCH ×2 (16:15→22:00)
[2018-11-26] MEDS ORDERED: METOPROLOL TARTRATE 50 MG TABLET (FP) PO SCH (17:34)
[2018-11-26] MEDS: dilTIAZem HCL 50 MG/10 ML - 10 ML VIAL IVPUSH PRN (17:37)
[2018-11-26] MEDS ORDERED: dilTIAZem HCL 30 MG TABLET (FP) PO SCH (18:00)
[2018-11-26] MEDS: cloNIDine HCL 0.1 MG TABLET PO SCH (22:00)
[2018-11-26] MEDS: SODIUM CHLORIDE 0.45%/POT 20 MEQ/1,000 ML INFUS.BAG IV SCH (22:01)
[2018-11-26] MEDS: dilTIAZem HCL 60 MG TABLET (FP) PO SCH (23:30)
[2018-11-27] MEDS: HYDROmorphone HCl 2 MG/ML VIAL IVPB PRN ×3 (02:31→20:02)
[2018-11-27] MEDS: ENALAPRILAT DIHYDRATE 1.25 MG/1 ML VIAL IVPB SCH (03:10)
[2018-11-27] MEDS: HEPARIN NA (PORCINE) 5,000 UNITS/ML 1ML VIAL SQ SCH ×3 (06:53→21:49)
[2018-11-27] MEDS: dilTIAZem HCL 60 MG TABLET (FP) PO SCH ×4 (06:53→18:50)
[2018-11-27] MEDS: cloNIDine HCL 0.1 MG TABLET PO SCH ×3 (06:53→21:49)
[2018-11-27] MEDS: INSULIN SLIDING SCALE (NOVOLOG) 1 VIAL SQ SCH ×4 (06:54→21:49)
[2018-11-27 08:02] LABS: BASO % 0.4 % (0-2.0); HEMATOCRIT 27.7 % (32.4-45.2); HEMOGLOBIN 8.8 GM/dL (10.7-15.3); LYMPH % 4.4 % (8-40); MCH 25.5 pg (25.7-33.7); MCHC 31.9 g/dl (32.0-36.0); MEAN PLT VOLUME 9.1 fl (7.5-11.1); MONO % 5.3 % (3.8-10.2); NEUT % 89.9 % (42.8-82.8); PLATELET COUNT 349 K/MM3 (134-434); RBC 3.47 M/mm3 (3.60-5.2); RDW 19.3 % (11.6-15.6); WHITE BLOOD COUNT 12.9 K/mm3 (4.0-10.0)
[2018-11-27 08:31] LABS: ALK PHOS 84 U/L (45-117); ANION GAP 10 MMOL/L (8-16); BILIRUBIN,TOTAL 0.5 mg/dL (0.2-1); BLOOD UREA NITROGEN 21 mg/dL (7-18); CALCIUM 8.3 mg/dL (8.5-10.1); CHLORIDE 103 mmol/L (98-107); CO2 30 mmol/L (21-32); CREATININE 1.2 mg/dL (0.55-1.3); GLUCOSE,RANDOM 277 mg/dL (74-106); MAGNESIUM 1.8 mg/dL (1.8-2.4); PHOSPHOROUS 2.9 mg/dL (2.5-4.9); POTASSIUM 3.8 mmol/L (3.5-5.1); SGOT/AST 7 U/L (15-37); SGPT/ALT 7 U/L (13-61); SODIUM 143 mmol/L (136-145); TOT PROT 6.2 g/dl (6.4-8.2)
--- NOTE | 2018-11-27 09:00 | PN ---
Progress Note (short form) - Note Progress Note: UROLOGY NOTE left hydronephrosis with JJ stent inplace, Right renal stone. Plan: will do jj stent removal and Right ESWL as outpatient once she recovered from her last surgery.
[2018-11-27] MEDS: METOPROLOL TARTRATE 5 MG/5 ML VIAL IVPUSH PRN (09:05)
--- NOTE | 2018-11-27 09:42 | PN ---
Progress Note, Physician - Current Medication List Current Medications: Active Medications Acetaminophen (Ofirmev Injection -) 1,000 mg IVPB Q6H PRN PRN Reason: PAIN LEVEL 6-10 Last Admin: 11/25/18 16:21 Dose: 1,000 mg Clonidine (Catapres -) 0.2 mg PO TID [facility] Last Admin: 11/27/18 06:53 Dose: 0.2 mg Diltiazem HCl (Cardizem Injection -) 10 mg IVPUSH Q4H PRN PRN Reason: TACHYCARDIA Last Admin: 11/26/18 17:37 Dose: 10 mg Diltiazem HCl (Cardizem -) 60 mg PO Q6HPO [facility] Last Admin: 11/27/18 06:53 Dose: 60 mg Diphenhydramine HCl (Benadryl Injection -) 25 mg IVPB Q6H PRN PRN Reason: ITCHING Enalaprilat (Vasotec Injection -) 0.625 mg IVPB Q6H-IV [facility] Last Admin: 11/27/18 03:10 Dose: Not Given Heparin Sodium (Porcine) (Heparin -) 5,000 unit SQ TID [facility] Last Admin: 11/27/18 06:53 Dose: 5,000 unit Hydromorphone HCl (Dilaudid Vial -) 2 mg IVPB Q6H PRN PRN Reason: PAIN LEVEL 7 - 10 Last Admin: 11/27/18 09:29 Dose: 2 mg Potassium Chloride/Sodium Chloride (1/2ns+20meq Kcl) 20 meq in 1,000 mls @ 125 mls/hr IV ASDIR [facility] Last Admin: 11/26/18 22:01 Dose: 125 mls/hr Diltiazem HCl 125 mg/ Sodium (Chloride) 125 mls @ 10 mls/hr IVPB TITR [facility]; Protocol Last Admin: 11/26/18 23:00 Dose: 15 mg/hr, 15 mls/hr Insulin Aspart (Novolog Vial Sliding Scale -) 1 vial SQ ACHS [facility]; Protocol Last Admin: 11/27/18 06:54 Dose: 4 units Metoprolol Tartrate (Lopressor Injection -) 5 mg IVPUSH Q4H PRN PRN Reason: HYPERTENSION Last Admin: 11/27/18 09:05 Dose: 5 mg Ondansetron HCl (Zofran Injection) 4 mg IVPUSH Q4H PRN PRN Reason: NAUSEA AND/OR VOMITING Last Admin: 11/25/18 06:39 Dose: 4 mg - Objective Vital Signs: Vital Signs Temperature 98.3 F 11/27/18 05:00 Pulse Rate 137 H 11/27/18 09:05 Respiratory Rate 19 11/27/18 07:00 Blood Pressure 113/64 11/27/18 09:05 O2 Sat by Pulse Oximetry (%) 98 11/26/18 21:00 Cardiovascular: Yes: Tachycardia, Pulse Irregular, S1, S2 Respiratory: Yes: Regular, CTA Bilaterally Gastrointestinal: Yes: Normal Bowel Sounds, Soft, Distention Labs: CBC, BMP 11/27/18 06:00 11/27/18 06:00 INR, PTT INR 1.19 (0.82-1.09) 11/16/18 14:35 Problem List - Problems (1) Small bowel obstruction Assessment/Plan: Operative Date: 11/20/18 Pre-Operative Diagnosis: small bowel obstruction, incisional hernia Operation: laparotomy with extensive lysis of adhesions (2 hours), suture repair of right upper quadrant incisional hernia iv zosyn Findings: mesh (Goretex?) in midline - partially divided, left in situ; matted loops of small bowel in right abdomen, incisional hernia RUQ and right lateral abdomen, evidence of previous Jackelin-en-Y bowel reconstruction with dilation of stagnant loop; tiny enterotomy made in proximal SB in RUQ, repaired with sutures with minimal leakage; no resection performed Post-Operative Diagnosis: Other (same as preop with stagnant Jackelin-en-Y bowel loop in RUQ, extensive intestinal adhesions) Surgeon: Neal Rodney Sales Architect: Jace Piña Anesthesiologist/SOFTWARE TOOLS DEVELOPER: Chuckie Nguyen Anesthesia: General, Local (20ML 0.5% marcaine) Specimens Removed: no resection Estimated Blood Loss (mls): 100 Drains & Tubes with Location: preop [place] NGT; Salas placed and left Drains, Volume Out (mls): 500 (UOP) Fluid Volume Replaced (mls): 1,800 (crystalloid) Operative Report Dictated: Yes dvt ppx ng tube out per surgery pain control iv abx zosyn Code(s): K56.609 - UNSP INTESTNL OBST, UNSP TO PARTIAL VERSUS COMPLETE OBST (2) Atrial fibrillation with RVR Assessment/Plan: rapid hold AC until cleared by surgery meds per cardio Code(s): I48.91 - UNSPECIFIED ATRIAL FIBRILLATION (3) Head ache Assessment/Plan: ct head control bp Code(s): R51 - HEADACHE (4) Diabetes mellitus type 2 in obese Assessment/Plan: bgm sliding scale currently NPO with ng tube Code(s): E11.69 - TYPE 2 DIABETES MELLITUS WITH OTHER SPECIFIED COMPLICATION; E66.9 - OBESITY, UNSPECIFIED (5) Hypertension Assessment/Plan: add vasotec Vital Signs Period Temp Pulse Resp BP Sys/Pascual Pulse Ox Last 24 Hr 97.8 F-98.8 F 134-138 18-20 113-158/64-96 98 Code(s): I10 - ESSENTIAL (PRIMARY) HYPERTENSION Qualifiers: Hypertension type: essential hypertension Qualified Code(s): I10 - Essential (primary) hypertension (6) Hydronephrosis, left Code(s): N13.30 - UNSPECIFIED HYDRONEPHROSIS
[2018-11-27 10:25] LABS: ANISOCYTOSIS 1+; MACROCYTOSIS 0; PLATELET ESTIMATE NORMAL
--- NOTE | 2018-11-27 10:29 | PN ---
Progress Note (short form) - Note Progress Note: s: no chest pain, palps, dizziness, edema. NG tube out, taking PO meds Current Medications Acetaminophen (Ofirmev Injection -) 1,000 mg IVPB Q6H PRN PRN Reason: PAIN LEVEL 6-10 Last Admin: 11/25/18 16:21 Dose: 1,000 mg Clonidine (Catapres -) 0.2 mg PO TID [facility] Last Admin: 11/27/18 06:53 Dose: 0.2 mg Diltiazem HCl (Cardizem Injection -) 10 mg IVPUSH Q4H PRN PRN Reason: TACHYCARDIA Last Admin: 11/26/18 17:37 Dose: 10 mg Diltiazem HCl (Cardizem -) 60 mg PO Q6HPO [facility] Last Admin: 11/27/18 06:53 Dose: 60 mg Diphenhydramine HCl (Benadryl Injection -) 25 mg IVPB Q6H PRN PRN Reason: ITCHING Enalaprilat (Vasotec Injection -) 0.625 mg IVPB Q6H-IV [facility] Last Admin: 11/27/18 03:10 Dose: Not Given Heparin Sodium (Porcine) (Heparin -) 5,000 unit SQ TID [facility] Last Admin: 11/27/18 06:53 Dose: 5,000 unit Hydromorphone HCl (Dilaudid Vial -) 2 mg IVPB Q6H PRN PRN Reason: PAIN LEVEL 7 - 10 Last Admin: 11/27/18 09:29 Dose: 2 mg Potassium Chloride/Sodium Chloride (1/2ns+20meq Kcl) 20 meq in 1,000 mls @ 125 mls/hr IV ASDIR [facility] Last Admin: 11/26/18 22:01 Dose: 125 mls/hr Diltiazem HCl 125 mg/ Sodium (Chloride) 125 mls @ 10 mls/hr IVPB TITR [facility]; Protocol Last Admin: 11/26/18 23:00 Dose: 15 mg/hr, 15 mls/hr Insulin Aspart (Novolog Vial Sliding Scale -) 1 vial SQ ACHS [facility]; Protocol Last Admin: 11/27/18 06:54 Dose: 4 units Metoprolol Tartrate (Lopressor Injection -) 5 mg IVPUSH Q4H PRN PRN Reason: HYPERTENSION Last Admin: 11/27/18 09:05 Dose: 5 mg Ondansetron HCl (Zofran Injection) 4 mg IVPUSH Q4H PRN PRN Reason: NAUSEA AND/OR VOMITING Last Admin: 11/25/18 06:39 Dose: 4 mg Vital Signs Period Temp Pulse Resp BP Sys/Pascual Pulse Ox Last 24 Hr 97.8 F-98.8 F 134-138 18-20 113-158/64-96 98 Constitutional: Yes: Well Nourished, No Distress, Calm Cardiovascular: Yes: Regular Rate and Rhythm, S1, S2. No: Gallop, Murmur, Rub Respiratory: Yes: Regular, CTA Bilaterally. No: Accessory Muscle Use, Wheezes Extremities: No: Cold Edema: No (SCDs) Neurological: Yes: Alert, Oriented Psychiatric: No: Agitated Assessment/Plan EKG: initial sinus, LVH, first deg AVB EKG 11/22 afib with RVR rate 135 bpm Echo 11/2016 LV mildly dilated, nl LV function, sigmoid septum, RV nl, LA severely dilated, RA mildly enlarged, mild MR, mild TR, at least mild pulm HTN, RVSP at least 42 mmHg tele: afib 130s-150s afib - in post op setting after ex lap, PAN - hold AC until clear per surgery (hence also deferring DCCV until can reliably take AC) - 11/25: converted spontaneously now to sinus - 11/26: overnight converted back to afib with RVR, dilt gtt was started, initially poor IV access now has been running, no improvement with additional lopressor 5 mg IV this morning. replete K and Mg, digoxin 0.125 mg IV x 1 ordered, cont dilt gtt - 11/27: started diltiazem 60 mg PO Q6H, increase to 90 mg Q6H, start propranolol 20 mg Q6H, uptitrate as tolerated, wean dilt gtt as tolerated SBO s/p ex lap, PAN - manage per surgery, currently NPO HTN - bp chronically suboptimal, recently titrating meds over past several months as outpatient with partial response - home mreds restarted, monitor pulm HTN, chronic diastolic HF - mild to mod, likely 2/2 diastolic CHF - appears euvolemic DM - manage per primary HLD - holding statin, restart when taking PO CHACHA on CKD - Cr improved, stable
--- NOTE | 2018-11-27 14:05 | CONSULT ---
Consult Consult Specialty:: PM&R Dr Ward for Dr Bradley - History of Present Illness Chief Complaint: occasional abdominal pain History of Present Illness: This is a 72 year old woman with a medical history of HTN, CKD, nephrolithiasis s/p L ureteral stent, DM, who presented to the ED 11/16/18 with LBP and abdominal pain. She was seen by both Surgery and GI, and on 11/20/18 underwent ex -lap for SBO with extensive PAN and hernia repair. Renal was consulted for CHACHA ( prerenal and obstructive) for which IVF were given. Urology was consulted for ureteral stent. Pulm was consulted for SOB. She was monitored on Telemetry for A fib. Physiatry is being consulted for further recommendations. 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) ...: No Infectious Disease: No: AIDS Psych: No: Addictions Musculoskeletal: Yes: Chronic low back pain (s/p low back surgery/disc issues in past) Rheumatology: Yes: Gout Endocrine: Yes: Diabetes Mellitus, Other (adrenal adenoma) - Past Surgical History Past Surgical History: Yes: Cholecystectomy, Colonoscopy, Hernia Repair (ventral /?umbilical with mesh years ago), Hysterectomy, Joint Replacement (bilateral knee total knee replacement), Laminectomy (Lumbar spine), Stent (left ureteral ( placed early this month in [place])), Upper Endoscopy - Alcohol/Substance Use Hx Alcohol Use: No History of Substance Use: reports: None - Smoking History Smoking history: Never smoked Have you smoked in the past 12 months: No Aproximately how many cigarettes per day: 0 - Social History Usual Living Arrangement: Alone (brother lives with her) ADL: Independent (in apartment with 3-4 steps to enter) 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[employer], 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 History of Recent Travel: Yes ([place], [place] from June to 11/06/18) Home Medications - Allergies Allergies/Adverse Reactions: Allergies Allergy/AdvReac Type Severity Reaction Status Date / Time latex Allergy Severe Swelling Verified 11/16/18 13:55 insulin lispro [From Humalog] Allergy Intermediate Generalized Verified 13:55 rash and itching naproxen [From Naprosyn] Allergy Swelling Verified 11/16/18 13:55 oxaprozin [From Daypro] Allergy Swelling Verified 11/16/18 13:55 saxagliptin HCl Allergy leg edema Verified 11/16/18 13:55 [From Onglyza] latex Allergy Severe Uncoded 11/16/18 13:55 Mushrooms Allergy Uncoded 11/16/18 13:55 naproxen Allergy Uncoded 11/16/18 13:55 - Home Medications Home Medications: Ambulatory Orders Cholecalciferol (Vitamin D3) [Vitamin D3] 50 mcg PO DAILY 10/19/16 Insulin (Levemir) [Levemir Vial] 55 unit SQ ASDIR 10/19/16 Allopurinol [Zyloprim -] 100 mg PO DAILY 12/20/16 Insulin (LOG) Aspart [NovoLOG -] 7 units SQ DAILY 01/16/17 Aspirin [ASA -] 81 mg PO DAILY 03/19/18 Amlodipine Besylate 5 mg PO DAILY 11/16/18 Atorvastatin Calcium 10 mg PO DAILY 11/16/18 Chlorthalidone 25 mg PO DAILY 11/16/18 Ciprofloxacin [Cipro (Restricted To Id)] 500 mg PO BID 11/16/18 Potassium Citrate [Potassium Citrate ER] 30 meq PO BID 11/16/18 Family Disease History - Family Disease History Family Disease History: Other: Father ( 84), Mother (lived to 96) Other Family History: NO IBD or cancer, Pat aunt had DM Review of Systems Findings/Remarks: Denies fevers, chills, changes in vision/ hearing/ mood, CP, SOB, abdominal pain , nausea, vomiting, constipation, diarrhea, dysuria, numbness/ paresthesias, muscle/ joint pain. Physical Exam Vital Signs: Vital Signs Temperature 98.1 F 11/27/18 11:00 Pulse Rate 136 H 11/27/18 11:00 Respiratory Rate 20 11/27/18 11:00 Blood Pressure 102/75 11/27/18 11:00 O2 Sat by Pulse Oximetry (%) 97 11/27/18 09:00 Musculoskeletal: Yes: Other (General: calm obese AAF sitting in chair NAD, AAO x3, on supplemental O2 N/M: full B shoulder ROM, 5/5 BUE/ BLE; Pinprick Intact BUE/ BLE Extremities: no BLE pitting edema, no B calf tenderness) Labs: CBC, BMP 11/27/18 06:00 11/27/18 06:00 Assessment/Plan Impression: 1) Deficits mobility/ ADLs 2) Gait abnormality 3) SBO due to hernia s/p 11/20/18 ex- lap with PAN and hernia repair 4) A fib with hx HTN 5) Nephrolithiasis s/p L ureteral stent, chronic 6) CHACHA on CKD 7) hx DM 8) Obesity 9) No documented flu shot/ pneumovax 10) Anemia Recommendations: 1) PT for stretching strengthening ROM and functional mobility 2) Falls, safety precautions 3) Cardiac, diabetic precautions 4) DVT ppx: as per Surgery 5) Denies constipation on current bowel regimen 6) Monitor CBC given anemia 7) Monitor BMP given renal function 8) Nutrition consult for obesity 9) Discharge planning: while she would benefit from inpatient rehabilitation once medically stable, she is adamant that she will return home. Thank you for this referral.
[2018-11-27] MEDS: SODIUM CHLORIDE 0.45%/POT 20 MEQ/1,000 ML INFUS.BAG IV SCH (14:40)
--- NOTE | 2018-11-27 14:47 | PN ---
Progress Note, Physician History of Present Illness: POD7 s/p extensive lysis of intestinal adhesions for developing SBO, with suture repair of small RUQ incisional hernia from inside, with findings of previous intestinal reconstruction, likely hepaticojejunostomy, done years ago after post-cholecystectomy complications per pt. Pt postop had new onset of afib with RVR and was transferred to telemetry, treated with cardizem drip and prn's - converted once to sinus and it was stopped, but afib recurred and was restarted. Yesterday, NGT was removed and po meds started with sips and ice chips. Her HR is currently in 70s, but was 130s most of day earlier. She is seen and examined in sitting up in chair. She is voiding and having bowel function. She feels sleepy but ok. Had significant abdominal pain this morning, she reports, which has been better and no longer present after medication. Would like to have coconut water when allowed. No nausea or vomiting since NG out. Renal ultrasound done last night. - Current Medication List Current Medications: Active Medications Acetaminophen (Ofirmev Injection -) 1,000 mg IVPB Q6H PRN PRN Reason: PAIN LEVEL 6-10 Last Admin: 11/25/18 16:21 Dose: 1,000 mg Clonidine (Catapres -) 0.2 mg PO TID [facility] Last Admin: 11/27/18 13:54 Dose: 0.2 mg Diltiazem HCl (Cardizem Injection -) 10 mg IVPUSH Q4H PRN PRN Reason: TACHYCARDIA Last Admin: 11/26/18 17:37 Dose: 10 mg Diltiazem HCl (Cardizem -) 90 mg PO Q6HPO [facility] Last Admin: 11/27/18 12:44 Dose: 90 mg Diphenhydramine HCl (Benadryl Injection -) 25 mg IVPB Q6H PRN PRN Reason: ITCHING Heparin Sodium (Porcine) (Heparin -) 5,000 unit SQ TID [facility] Last Admin: 11/27/18 13:54 Dose: 5,000 unit Hydromorphone HCl (Dilaudid Vial -) 2 mg IVPB Q6H PRN PRN Reason: PAIN LEVEL 7 - 10 Last Admin: 11/27/18 09:29 Dose: 2 mg Potassium Chloride/Sodium Chloride (1/2ns+20meq Kcl) 20 meq in 1,000 mls @ 125 mls/hr IV ASDIR [facility] Last Admin: 11/26/18 22:01 Dose: 125 mls/hr Diltiazem HCl 125 mg/ Sodium (Chloride) 125 mls @ 10 mls/hr IVPB TITR [facility]; Protocol Last Admin: 11/26/18 23:00 Dose: 15 mg/hr, 15 mls/hr Insulin Aspart (Novolog Vial Sliding Scale -) 1 vial SQ ACHS [facility]; Protocol Last Admin: 11/27/18 12:46 Dose: 4 units Metoprolol Tartrate (Lopressor Injection -) 5 mg IVPUSH Q4H PRN PRN Reason: HYPERTENSION Last Admin: 11/27/18 09:05 Dose: 5 mg Ondansetron HCl (Zofran Injection) 4 mg IVPUSH Q4H PRN PRN Reason: NAUSEA AND/OR VOMITING Last Admin: 11/25/18 06:39 Dose: 4 mg Propranolol HCl (Inderal -) 20 mg PO Q8H [facility] Last Admin: 11/27/18 11:50 Dose: 20 mg - Objective Vital Signs: Vital Signs Temperature 98.1 F 11/27/18 11:00 Pulse Rate 136 H 11/27/18 11:00 Respiratory Rate 20 11/27/18 11:00 Blood Pressure 102/75 11/27/18 11:00 O2 Sat by Pulse Oximetry (%) 97 11/27/18 09:00 Vital Signs Period Temp Pulse Resp BP Sys/Pascual Pulse Ox Last 24 Hr 97.8 F-98.3 F 134-138 18-20 102-158/64-96 97-98 Intake & Output 11/26/18 11/27/18 11/27/18 23:59 07:59 15:59 Intake Total 720 1880 Output Total 300 Balance 420 1880 Intake: IV 180 1680 1/2NS+20MEQ KCL 20 meq In 1500 1,000 ml @ 125 mls/hr IV ASDIR [facility] Rx#: [id number] Cardizem Injection - 125 180 180 mg In Normal Saline - 100 ml @ 10 mls/hr IVPB TITR [facility] Rx#:[id number] IVPB 300 100 Oral 240 100 Output: Gastric Drainage 300 Other: Voiding Method Bedside Commode Bedside Commode Constitutional: Yes: No Distress, Calm, Obese Eyes: Yes: Conjunctiva Clear, EOM Intact HENT: Yes: Atraumatic, Normocephalic Cardiovascular: Yes: Pulse Irregular. No: Tachycardia Respiratory: Yes: Regular, On Nasal O2. No: SOB Gastrointestinal: Yes: Normal Bowel Sounds, Soft, Abdomen, Obese. No: Tenderness (minimal in all quadrants and incisional) Extremities: No: Cool, Cyanosis Integumentary: Yes: Incision (midline w/abhay). No: Erythema, Jaundice, Rash Wound/Incision: Yes: Clean/Dry, Well Approximated, Abhay Intact, Open to air. No: Reddened Neurological: Yes: Alert, Oriented Labs: CBC, BMP 11/27/18 06:00 11/27/18 06:00 CMP Sodium 143 mmol/L (136-145) 11/27/18 06:00 Potassium 3.8 mmol/L (3.5-5.1) 11/27/18 06:00 Chloride 103 mmol/L (98-107) 11/27/18 06:00 Carbon Dioxide 30 mmol/L (21-32) 11/27/18 06:00 Anion Gap 10 MMOL/L (8-16) 11/27/18 06:00 BUN 21 mg/dL (7-18) H 11/27/18 06:00 Creatinine 1.2 mg/dL (0.55-1.3) 11/27/18 06:00 Creat Clearance w eGFR 43.91 (>60) 11/27/18 06:00 POC Glucometer 237 UNITS (80-120) 11/27/18 12:41 Random Glucose 277 mg/dL (74-106) H 11/27/18 06:00 Hemoglobin A1c % 8.9 % (4.2-6.3) H 11/17/18 06:40 Lactic Acid 1.3 mmol/L (0.4-2.0) 11/19/18 22:35 Calcium 8.3 mg/dL (8.5-10.1) L 11/27/18 06:00 Phosphorus 2.9 mg/dL (2.5-4.9) 11/27/18 06:00 Magnesium 1.8 mg/dL (1.8-2.4) 11/27/18 06:00 Total Bilirubin 0.5 mg/dL (0.2-1) 11/27/18 06:00 AST 7 U/L (15-37) L 11/27/18 06:00 ALT 7 U/L (13-61) L 11/27/18 06:00 Alkaline Phosphatase 84 U/L (45-117) 11/27/18 06:00 LD Total 152 U/L (84-246) 11/19/18 20:00 Troponin I 0.03 ng/ml (0.00-0.05) 11/16/18 14:18 C-Reactive Protein 1.9 MG/DL (0.00-0.3) H 11/19/18 07:00 Total Protein 6.2 g/dl (6.4-8.2) L 11/27/18 06:00 Albumin 2.0 g/dl (3.4-5.0) L 11/27/18 06:00 Total Amylase 50 U/L (25-115) 11/19/18 20:00 Lipase 154 U/L (73-393) 11/19/18 20:00 wbc up a little H/H stable BUN/Cr ok K 3.8, Mg 1.8 sugars still in upper 200s - ....Imaging Ultrasound: Report Reviewed (renal US noted) Problem List - Problems (1) Small bowel obstruction Assessment/Plan: POD7 s/p extensive lysis of adhesions and RUQ incisional hernia repair s/p likely hepaticojejunostomy in past with intestinal reconstruction - with dilated/stagnant loop of anastomotic area had small enterotomy repaired in proximal SB with small yellow fluid leakage, minimal contamination doing well from postop standpoint incision c/d/i with abhay prn Tylenol and/or Dilaudid for pain trend labs replete lytes decrease IVF now - may be able to stop in am if doing well with clears will start clear liquids, ok for diabetic fulls in am if ok tonight will wait for soft diet until Sunday if tolerating through tomorrow OOB to chair and with assist as often as able Salas out, voiding ok, + bowel function continue strict I/O's discussed with Dr. Mathew and Dr. Carolina Code(s): K56.609 - UNSP INTESTNL OBST, UNSP TO PARTIAL VERSUS COMPLETE OBST (2) Atrial fibrillation with RVR Assessment/Plan: keep lytes repleted cardiology following echo done and noted HR just down into normal range again meds per cardio per Dr. Mathew, likely to start Eliquis for anticoagulation when allowed will likely be ok once on full diet would check with urology to see if they plan ureteral stent removal this admission or later as outpatient, since it will require holding AC Code(s): I48.91 - UNSPECIFIED ATRIAL FIBRILLATION (3) Hypertension Assessment/Plan: back on po meds BP controlled Code(s): I10 - ESSENTIAL (PRIMARY) HYPERTENSION Qualifiers: Hypertension type: essential hypertension Qualified Code(s): I10 - Essential (primary) hypertension (4) Diabetes mellitus type 2 in obese Assessment/Plan: maintain glucose control FS with SSI coveraqe A1C noted high sugars still high - may be able to resume diabetic meds once back on full diet Code(s): E11.69 - TYPE 2 DIABETES MELLITUS WITH OTHER SPECIFIED COMPLICATION; E66.9 - OBESITY, UNSPECIFIED (5) S/P ureteral stent placement Assessment/Plan: urology following renal ultrasound done stent management per uro - pt may need laser lithotripsy with stent removal timing? would discuss prior to initiating anticoagulation Code(s): Z96.0 - PRESENCE OF UROGENITAL IMPLANTS (6) Gout Assessment/Plan: can resume allopurinol per medical team Code(s): M10.9 - GOUT, UNSPECIFIED Qualifiers: Gout site: toe Gout etiology: unspecified cause Chronicity: unspecified Laterality: unspecified laterality Qualified Code(s): M10.9 - Gout, unspecified (7) CKD (chronic kidney disease) stage 3, GFR 30-59 ml/min Assessment/Plan: BUN/Cr near normal/baseline range - UOP good nephrology following decreasing IVF - should be able to stop once hydrating herself well Code(s): N18.3 - CHRONIC KIDNEY DISEASE, STAGE 3 (MODERATE) (8) History of cholecystectomy Code(s): Z90.49 - ACQUIRED ABSENCE OF OTHER SPECIFIED PARTS OF DIGESTIVE TRACT (9) History of common bile duct surgery Code(s): Z98.890 - OTHER SPECIFIED POSTPROCEDURAL STATES
[2018-11-27] MEDS ORDERED: ACETAMINOPHEN 325 MG TABLET (FP) PO PRN (14:54)
[2018-11-27] MEDS: DILTIAZEM INJECTION 125 MG in SODIUM CHLORIDE 100 ML IVPB SCH (23:42)
[2018-11-28] MEDS: dilTIAZem HCL 60 MG TABLET (FP) PO SCH ×4 (01:27→17:40)
[2018-11-28] MEDS: cloNIDine HCL 0.1 MG TABLET PO SCH ×3 (06:52→21:59)
[2018-11-28] MEDS: HEPARIN NA (PORCINE) 5,000 UNITS/ML 1ML VIAL SQ SCH ×3 (06:53→21:53)
[2018-11-28] MEDS: INSULIN SLIDING SCALE (NOVOLOG) 1 VIAL SQ SCH ×4 (06:53→21:54)
--- NOTE | 2018-11-28 11:25 | PN ---
Progress Note (short form) - Note Progress Note: s: no cp sob palps dizzy o: Vital Signs Period Temp Pulse Resp BP Sys/Pascual Pulse Ox Last 24 Hr 66 F-98.5 F 65-135 20-20 97-145/55-75 100-100 Constitutional: Yes: Well Nourished, No Distress, Calm Eyes: Yes: Conjunctiva Clear Respiratory: Yes: Regular, CTA Bilaterally Gastrointestinal: Yes: Tenderness Cardiovascular: Yes: irreg JVD: No Heart Sounds: Yes: S1, S2 Murmur: No: Systolic Murmur Extremities: No: Cold Edema: No Peripheral Pulses: 2+ Left Doralis Pedis, 2+ Right Dorsalis Pedis Integumentary: No: Jaundice Neurological: Yes: Alert, Oriented Psychiatric: No: Agitated Current Medications Generic Name Dose Route Start Last Admin Trade Name Freq PRN Reason Stop Dose Admin Acetaminophen 650 mg 11/27/18 14:54 Tylenol - PO Q6H PRN PAIN LEVEL 6-10 Clonidine 0.2 mg 11/26/18 22:00 11/28/18 06:52 Catapres - PO 0.2 mg TID [facility] Administration Diltiazem HCl 10 mg 11/22/18 17:18 11/26/18 17:37 Cardizem Injection - IVPUSH 10 mg Q4H PRN Administration TACHYCARDIA Diltiazem HCl 90 mg 11/27/18 12:00 11/28/18 06:52 Cardizem - PO 90 mg Q6HPO [facility] Administration Diphenhydramine HCl 25 mg 11/26/18 17:12 Benadryl Injection - IVPB Q6H PRN ITCHING Heparin Sodium (Porcine) 5,000 unit 11/20/18 14:00 11/28/18 06:53 Heparin - SQ 5,000 unit TID [facility] Administration Hydromorphone HCl 2 mg 11/23/18 12:34 11/27/18 20:02 Dilaudid Vial - IVPB 2 mg Q6H PRN Administration PAIN LEVEL 7 - 10 Potassium Chloride/Sodium Chloride 20 meq in 1,000 mls @ 75 mls/hr 11/27/18 14 :57 11/27/18 14:40 1/2ns+20meq Kcl IV 75 mls/hr ASDIR [facility] Administration Insulin Aspart 1 vial 11/20/18 16:30 11/28/18 06:53 Novolog Vial Sliding Scale - SQ 6 units ACHS [facility] Administration Protocol Ondansetron HCl 4 mg 11/20/18 12:08 11/25/18 06:39 Zofran Injection IVPUSH 4 mg Q4H PRN Administration NAUSEA AND/OR VOMITING Propranolol HCl 20 mg 11/28/18 06:00 11/28/18 06:51 Inderal - PO 20 mg TID [facility] Administration CBC, BMP 11/27/18 06:00 11/27/18 06:00 Assessment/Plan EKG: initial sinus, LVH, first deg AVB EKG 11/22 afib with RVR rate 135 bpm echo 11/2016 LV mildly dilated, nl LV function, sigmoid septum, RV nl, LA severely dilated, RA mildly enlarged, mild MR, mild TR, at least mild pulm HTN, RVSP at least 42 mmHg tele: afib , rate controlled afib - in post op setting after ex lap, PAN - hold AC until clear per surgery (hence also deferring DCCV until can reliably take AC) - 11/25: converted spontaneously now to sinus - 11/26: overnight converted back to afib with RVR, dilt gtt was started, initially poor IV access now has been running, no improvement with additional lopressor 5 mg IV this morning. replete K and Mg, digoxin 0.125 mg IV x 1 ordered, cont dilt gtt - 11/27: started diltiazem 60 mg PO Q6H, increase to 90 mg Q6H, start propranolol 20 mg Q6H, uptitrate as tolerated, wean dilt gtt as tolerated -11/28: rate controlled on po meds, off dilt gtt now SBO s/p ex lap, PAN - manage per surgery, currently NPO HTN - bp chronically suboptimal, recently titrating meds over past several months as outpatient with partial response - home meds restarted, monitor pulm HTN, chronic diastolic HF - mild to mod, likely 2/2 diastolic CHF - appears euvolemic DM - manage per primary HLD - holding statin CHACHA on CKD - Cr improved, stable
--- NOTE | 2018-11-28 14:10 | PN ---
Progress Note, Physician Chief Complaint: patient seen and examined had full liquids sleepy today got dilaudid last night - Current Medication List Current Medications: Active Medications Acetaminophen (Tylenol -) 650 mg PO Q6H PRN PRN Reason: PAIN LEVEL 6-10 Clonidine (Catapres -) 0.2 mg PO TID [facility] Last Admin: 11/28/18 14:00 Dose: 0.2 mg Diltiazem HCl (Cardizem Injection -) 10 mg IVPUSH Q4H PRN PRN Reason: TACHYCARDIA Last Admin: 11/26/18 17:37 Dose: 10 mg Diltiazem HCl (Cardizem -) 90 mg PO Q6HPO [facility] Last Admin: 11/28/18 12:45 Dose: 90 mg Diphenhydramine HCl (Benadryl Injection -) 25 mg IVPB Q6H PRN PRN Reason: ITCHING Heparin Sodium (Porcine) (Heparin -) 5,000 unit SQ TID [facility] Last Admin: 11/28/18 14:00 Dose: 5,000 unit Potassium Chloride/Sodium Chloride (1/2ns+20meq Kcl) 20 meq in 1,000 mls @ 75 mls/hr IV ASDIR [facility] Last Admin: 11/27/18 14:40 Dose: 75 mls/hr Insulin Aspart (Novolog Vial Sliding Scale -) 1 vial SQ [facility]; Protocol Last Admin: 11/28/18 12:44 Dose: 6 units Ondansetron HCl (Zofran Injection) 4 mg IVPUSH Q4H PRN PRN Reason: NAUSEA AND/OR VOMITING Last Admin: 11/25/18 06:39 Dose: 4 mg Propranolol HCl (Inderal -) 20 mg PO TID [facility] Last Admin: 11/28/18 14:00 Dose: 20 mg - Objective Vital Signs: Vital Signs Temperature 66 F L 11/28/18 09:00 Pulse Rate 66 11/28/18 09:00 Respiratory Rate 20 11/28/18 09:00 Blood Pressure 110/55 L 11/28/18 09:00 O2 Sat by Pulse Oximetry (%) 100 11/28/18 09:00 Constitutional: Yes: Calm Cardiovascular: Yes: Regular Rate and Rhythm, S1, S2 Respiratory: Yes: CTA Bilaterally Gastrointestinal: Yes: Normal Bowel Sounds, Soft, Other (midline abhay) Labs: CBC, BMP 11/27/18 06:00 11/27/18 06:00 INR, PTT INR 1.19 (0.82-1.09) 11/16/18 14:35 Problem List - Problems (1) Headache Assessment/Plan: ct head neurology Code(s): R51 - HEADACHE (2) Abdominal pain Assessment/Plan: Note: Operative Date: 11/20/18 Pre-Operative Diagnosis: small bowel obstruction, incisional hernia Operation: laparotomy with extensive lysis of adhesions (2 hours), suture repair of right upper quadrant incisional hernia iv zosyn Findings: mesh (Goretex?) in midline - partially divided, left in situ; matted loops of small bowel in right abdomen, incisional hernia RUQ and right lateral abdomen, evidence of previous Jackelin-en-Y bowel reconstruction with dilation of stagnant loop; tiny enterotomy made in proximal SB in RUQ, repaired with sutures with minimal leakage; no resection performed Post-Operative Diagnosis: Other (same as preop with stagnant Jackelin-en-Y bowel loop in RUQ, extensive intestinal adhesions) Surgeon: Neal Rodney Biomedical Repair Technician: Jace Piña Anesthesiologist/CASH SHORTAGE INVESTIGATOR: Chuckie Nguyen Anesthesia: General, Local (20ML 0.5% marcaine) Specimens Removed: no resection Estimated Blood Loss (mls): 100 Drains & Tubes with Location: preop [place] NGT; Salas placed and left Drains, Volume Out (mls): 500 (UOP) Fluid Volume Replaced (mls): 1,800 (crystalloid) Operative Report Dictated: Yes dvt ppx ng tube to suction- removed pain control iv abx zosyn full liquid diet Code(s): R10.9 - UNSPECIFIED ABDOMINAL PAIN Qualifiers: Abdominal location: unspecified location Qualified Code(s): R10.9 - Unspecified abdominal pain (3) Atrial fibrillation with RVR Assessment/Plan: started on propanolol Code(s): I48.91 - UNSPECIFIED ATRIAL FIBRILLATION (4) S/P ureteral stent placement Assessment/Plan: seen by urology needs laser lithotripsy as an outpatient Code(s): Z96.0 - PRESENCE OF UROGENITAL IMPLANTS (5) Diabetes mellitus type 2 in obese Assessment/Plan: bgm sliding scale currently NPO with ng tube Code(s): E11.69 - TYPE 2 DIABETES MELLITUS WITH OTHER SPECIFIED COMPLICATION; E66.9 - OBESITY, UNSPECIFIED
--- NOTE | 2018-11-28 16:00 | PN ---
Progress Note (short form) - Note Progress Note: Renal function now improved to baseline and no overt electrolyte abnormality present. Will sign off case at this time. Please call with any questions or concerns. Ethan Ram DO
--- NOTE | 2018-11-28 17:21 | CONSULT ---
Consult - text type - Consultation Consultation Note: NEUROLOGY CONSULT APPRECIATED: Events reviewed and discussed with Compa Bond. This 72 yo RH female lives with her brother. PMHX includes HTN, IDDM, Gout maintained on insulin, allopurinol, FeSO4, ASA. Surgical Hx includes B/L knee replacement, Hernia repair with mesh, laminectomy , Cholecystectomy, Kidney Stones s/p recent L urethral stent. Initially admitted 11/16/18 with flank pain found on imaging with SBO and incisional hernia requiring exploratory laparotomy. This was complicated by new onset afib with RVR, requiring diltazem drip. AC currently on hold as pt was initially NPO, now thin liquids. Now POD #7 reporting new onset nocturnal headache described as "pains" all over the head with associated phonophobia, photophobia, kinesiophobia. Since started on Inderal 20 mg TID for rate and rhythm control. Today without reports of headache, but reports feels "tired." A1c 8.9 WBC 12.9 H/H 8.8/27.7 MCV 80 BRIT: Obese. BP 100-120s/50-70s. Cor irregularly irregular. No bruit. Neck supple. On O2 via N/C. Nam noted to R abdominal wall. No scalp tenderness. Neuro: Eyes closed. Alert, Cooperative. EOM intact. Full sr appreciated. No facial. Gag ok. Motor: No drift. Strength normal. Reflexes normal. Toes downgoing. Coordination: No FTN dystaxia. Feels pinch in all four's Impression: New onset headache possibly associated with Toxic-Metabolic Encephalopathy (infection?) New-onseet AFib Suggest: Await CT of head (C-) Order ESR, CRP to r/o Temporal arteritis R/O UTI (now s/p alcantar removal) with UA, C & S Would change Inderal to Propranolol 60 mg ER po qd for migraine prophylaxis and BP control. Tylenol as needed for breakthrough headache Thank you very much, Ham Tovar MD
[2018-11-28] MEDS: SODIUM CHLORIDE 0.45%/POT 20 MEQ/1,000 ML INFUS.BAG IV SCH (20:31)
[2018-11-28] MEDS: HYDROmorphone HCl 2 MG/ML VIAL IVPB PRN (20:57)
[2018-11-29] MEDS: dilTIAZem HCL 60 MG TABLET (FP) PO SCH ×4 (01:00→17:50)
[2018-11-29] MEDS: cloNIDine HCL 0.1 MG TABLET PO SCH ×3 (06:22→21:01)
[2018-11-29] MEDS: HEPARIN NA (PORCINE) 5,000 UNITS/ML 1ML VIAL SQ SCH ×3 (06:22→20:59)
[2018-11-29] MEDS: INSULIN SLIDING SCALE (NOVOLOG) 1 VIAL SQ SCH ×4 (06:23→21:04)
[2018-11-29] MEDS: HYDROmorphone HCl 2 MG/ML VIAL IVPB PRN (06:23)
[2018-11-29 08:05] LABS: BASO % 0.1 % (0-2.0); EOS % 1.3 % (0-4.5); HEMATOCRIT 24.5 % (32.4-45.2); MCH 25.8 pg (25.7-33.7); MCHC 32.6 g/dl (32.0-36.0); MEAN CELL VOLUME 79.1 fl (80-96); MEAN PLT VOLUME 9.1 fl (7.5-11.1); NEUT % 83.6 % (42.8-82.8); PLATELET COUNT 330 K/MM3 (134-434); RDW 19.2 % (11.6-15.6); WHITE BLOOD COUNT 9.7 K/mm3 (4.0-10.0)
[2018-11-29 08:32] LABS: ALBUMIN 1.8 g/dl (3.4-5.0); ALK PHOS 75 U/L (45-117); ANION GAP 9 MMOL/L (8-16); BILIRUBIN,TOTAL 0.4 mg/dL (0.2-1); BLOOD UREA NITROGEN 33 mg/dL (7-18); CALCIUM 7.4 mg/dL (8.5-10.1); CHLORIDE 100 mmol/L (98-107); CO2 26 mmol/L (21-32); CREATININE 1.8 mg/dL (0.55-1.3); MAGNESIUM 1.3 mg/dL (1.8-2.4); PHOSPHOROUS 3.2 mg/dL (2.5-4.9); POTASSIUM 3.8 mmol/L (3.5-5.1); SGOT/AST 9 U/L (15-37); SGPT/ALT 7 U/L (13-61); SODIUM 136 mmol/L (136-145); TOT PROT 5.3 g/dl (6.4-8.2)
[2018-11-29 08:54] LABS: GLUCOSE,RANDOM 338 mg/dL (74-106)
--- NOTE | 2018-11-29 09:51 | PN ---
Progress Note, Physician History of Present Illness: feeling better - Current Medication List Current Medications: Active Medications Acetaminophen (Tylenol -) 650 mg PO Q6H PRN PRN Reason: PAIN LEVEL 4 - 6 Clonidine (Catapres -) 0.2 mg PO TID [facility] Last Admin: 11/29/18 06:22 Dose: 0.2 mg Diltiazem HCl (Cardizem Injection -) 10 mg IVPUSH Q4H PRN PRN Reason: TACHYCARDIA Last Admin: 11/26/18 17:37 Dose: 10 mg Diltiazem HCl (Cardizem -) 90 mg PO Q6HPO [facility] Last Admin: 11/29/18 06:21 Dose: 90 mg Diphenhydramine HCl (Benadryl Injection -) 25 mg IVPB Q6H PRN PRN Reason: ITCHING Heparin Sodium (Porcine) (Heparin -) 5,000 unit SQ TID [facility] Last Admin: 11/29/18 06:22 Dose: 5,000 unit Hydromorphone HCl (Dilaudid Vial -) 2 mg IVPB Q6H PRN PRN Reason: PAIN LEVEL 7 - 10 Last Admin: 11/29/18 06:23 Dose: 2 mg Potassium Chloride/Sodium Chloride (1/2ns+20meq Kcl) 20 meq in 1,000 mls @ 75 mls/hr IV ASDIR [facility] Last Admin: 11/28/18 20:31 Dose: Not Given Insulin Aspart (Novolog Vial Sliding Scale -) 1 vial SQ [facility]; Protocol Last Admin: 11/29/18 06:23 Dose: 8 units Ondansetron HCl (Zofran Injection) 4 mg IVPUSH Q4H PRN PRN Reason: NAUSEA AND/OR VOMITING Last Admin: 11/25/18 06:39 Dose: 4 mg Propranolol HCl (Inderal -) 20 mg PO TID [facility] Last Admin: 11/29/18 06:23 Dose: 20 mg - Objective Vital Signs: Vital Signs Temperature 97.9 F 11/29/18 09:13 Pulse Rate 52 L 11/29/18 09:13 Respiratory Rate 12 11/29/18 09:13 Blood Pressure 91/84 11/29/18 09:13 O2 Sat by Pulse Oximetry (%) 96 11/29/18 09:13 Cardiovascular: Yes: S1, S2 Respiratory: Yes: Regular, CTA Bilaterally Gastrointestinal: Yes: Normal Bowel Sounds, Soft Labs: CBC, BMP 11/29/18 05:30 11/29/18 05:30 INR, PTT INR 1.19 (0.82-1.09) 11/16/18 14:35 Problem List - Problems (1) Small bowel obstruction Code(s): K56.609 - UNSP INTESTNL OBST, UNSP TO PARTIAL VERSUS COMPLETE OBST (2) Atrial fibrillation with RVR Code(s): I48.91 - UNSPECIFIED ATRIAL FIBRILLATION (3) Head ache Code(s): R51 - HEADACHE (4) Diabetes mellitus type 2 in obese Code(s): E11.69 - TYPE 2 DIABETES MELLITUS WITH OTHER SPECIFIED COMPLICATION; E66.9 - OBESITY, UNSPECIFIED (5) Hypertension Code(s): I10 - ESSENTIAL (PRIMARY) HYPERTENSION Qualifiers: Hypertension type: essential hypertension Qualified Code(s): I10 - Essential (primary) hypertension (6) Hydronephrosis, left Code(s): N13.30 - UNSPECIFIED HYDRONEPHROSIS Assessment/Plan - Problems (1) Headache Assessment/Plan: ct head neurology noted Code(s): R51 - HEADACHE (2) Abdominal pain Assessment/Plan: Note: Operative Date: 11/20/18 Pre-Operative Diagnosis: small bowel obstruction, incisional hernia Operation: laparotomy with extensive lysis of adhesions (2 hours), suture repair of right upper quadrant incisional hernia iv zosyn Findings: mesh (Goretex?) in midline - partially divided, left in situ; matted loops of small bowel in right abdomen, incisional hernia RUQ and right lateral abdomen, evidence of previous Jackelin-en-Y bowel reconstruction with dilation of stagnant loop; tiny enterotomy made in proximal SB in RUQ, repaired with sutures with minimal leakage; no resection performed Post-Operative Diagnosis: Other (same as preop with stagnant Jackelin-en-Y bowel loop in RUQ, extensive intestinal adhesions) Surgeon: Neal Rodney Coal Washer: Jace Piña Anesthesiologist/BOAT CANVAS MAKER INSTALLER: Chuckie Nguyen Anesthesia: General, Local (20ML 0.5% marcaine) Specimens Removed: no resection Estimated Blood Loss (mls): 100 Drains & Tubes with Location: preop [place] NGT; Salas placed and left Drains, Volume Out (mls): 500 (UOP) Fluid Volume Replaced (mls): 1,800 (crystalloid) Operative Report Dictated: Yes dvt ppx ng tube to suction- removed pain control iv abx zosyn full liquid diet -advance per surgery Code(s): R10.9 - UNSPECIFIED ABDOMINAL PAIN Qualifiers: Abdominal location: unspecified location Qualified Code(s): R10.9 - Unspecified abdominal pain (3) Atrial fibrillation with RVR Assessment/Plan: started on propanolol Code(s): I48.91 - UNSPECIFIED ATRIAL FIBRILLATION (4) S/P ureteral stent placement Assessment/Plan: seen by urology needs laser lithotripsy as an outpatient Code(s): Z96.0 - PRESENCE OF UROGENITAL IMPLANTS (5) Diabetes mellitus type 2 in obese Assessment/Plan: bgm sliding scale currently NPO with ng tube Code(s): E11.69 - TYPE 2 DIABETES MELLITUS WITH OTHER SPECIFIED COMPLICATION; E66.9 - OBESITY, UNSPECIFIED dc planning Physical Therapy--may need snf
[2018-11-29 10:07] LABS: ANISOCYTOSIS 1+; MACROCYTOSIS 0; PLATELET ESTIMATE NORMAL
--- NOTE | 2018-11-29 10:46 | PN ---
Progress Note (short form) - Note Progress Note: s: no cp sob palps dizzy o: Vital Signs Period Temp Pulse Resp BP Sys/Pascual Pulse Ox Last 24 Hr 97.2 F-98.8 F 52-132 12-20 91-140/52-84 96-100 Constitutional: Yes: Well Nourished, No Distress, Calm Eyes: Yes: Conjunctiva Clear Respiratory: Yes: Regular, CTA Bilaterally Gastrointestinal: Yes: Tenderness Cardiovascular: Yes: irreg JVD: No Heart Sounds: Yes: S1, S2 Murmur: No: Systolic Murmur Extremities: No: Cold Edema: No Peripheral Pulses: 2+ Left Doralis Pedis, 2+ Right Dorsalis Pedis Integumentary: No: Jaundice Neurological: Yes: Alert, Oriented Psychiatric: No: Agitated Current Medications Generic Name Dose Route Start Last Admin Trade Name Freq PRN Reason Stop Dose Admin Acetaminophen 650 mg 11/27/18 14:54 Tylenol - PO Q6H PRN PAIN LEVEL 4 - 6 Clonidine 0.2 mg 11/26/18 22:00 11/29/18 06:22 Catapres - PO 0.2 mg TID BURTON Administration Diltiazem HCl 10 mg 11/22/18 17:18 11/26/18 17:37 Cardizem Injection - IVPUSH 10 mg Q4H PRN Administration TACHYCARDIA Diltiazem HCl 90 mg 11/27/18 12:00 11/29/18 06:21 Cardizem - PO 90 mg Q6HPO BURTON Administration Diphenhydramine HCl 25 mg 11/26/18 17:12 Benadryl Injection - IVPB Q6H PRN ITCHING Heparin Sodium (Porcine) 5,000 unit 11/20/18 14:00 11/29/18 06:22 Heparin - SQ 5,000 unit TID BURTON Administration Hydromorphone HCl 2 mg 11/28/18 20:45 11/29/18 06:23 Dilaudid Vial - IVPB 2 mg Q6H PRN Administration PAIN LEVEL 7 - 10 Potassium Chloride/Sodium Chloride 20 meq in 1,000 mls @ 75 mls/hr 11/27/18 14 :57 11/28/18 20:31 1/2ns+20meq Kcl IV Not Given ASDIR BURTON Insulin Aspart 1 vial 11/20/18 16:30 11/29/18 06:23 Novolog Vial Sliding Scale - SQ 8 units ACHS BURTON Administration Protocol Magnesium Sulfate 2 gm 11/29/18 10:37 Magnesium Sulfate IVPB 11/29/18 10:38 ONCE ONE Ondansetron HCl 4 mg 11/20/18 12:08 11/25/18 06:39 Zofran Injection IVPUSH 4 mg Q4H PRN Administration NAUSEA AND/OR VOMITING Propranolol HCl 20 mg 11/28/18 06:00 11/29/18 06:23 Inderal - PO 20 mg TID BURTON Administration CBC, BMP 11/29/18 05:30 11/29/18 05:30 Assessment/Plan EKG: initial sinus, LVH, first deg AVB EKG 11/22 afib with RVR rate 135 bpm echo 11/2016 LV mildly dilated, nl LV function, sigmoid septum, RV nl, LA severely dilated, RA mildly enlarged, mild MR, mild TR, at least mild pulm HTN, RVSP at least 42 mmHg tele: afib , rate controlled afib - in post op setting after ex lap, PAN - hold AC until clear per surgery (hence also deferring DCCV until can reliably take AC) - 11/25: converted spontaneously now to sinus - 11/26: overnight converted back to afib with RVR, dilt gtt was started, initially poor IV access now has been running, no improvement with additional lopressor 5 mg IV this morning. replete K and Mg, digoxin 0.125 mg IV x 1 ordered, cont dilt gtt - 11/27: started diltiazem 60 mg PO Q6H, increase to 90 mg Q6H, start propranolol 20 mg Q6H, uptitrate as tolerated, wean dilt gtt as tolerated -11/28-5: rate controlled on po meds, off dilt gtt now SBO s/p ex lap, PAN - manage per surgery, currently NPO HTN - bp chronically suboptimal, recently titrating meds over past several months as outpatient with partial response - home meds restarted, monitor pulm HTN, chronic diastolic HF - mild to mod, likely 2/2 diastolic CHF - appears euvolemic DM - manage per primary HLD - holding statin CHACHA on CKD - Cr improved but now up again today, renal following
[2018-11-29] MEDS ORDERED: SODIUM CHLORIDE 500 ML IV STA (11:14)
[2018-11-29] MEDS ORDERED: SODIUM CHLORIDE 1,000 ML IV SCH (11:15)
[2018-11-29] MEDS ORDERED: oxyCODONE HCL 5 MG TABLET PO PRN (11:15)
[2018-11-29] MEDS: MAGNESIUM SULF 50% (8.12 MEQ/2 ML-1 GM VIAL) IVPB ONE ×2 (11:24→11:56)
--- NOTE | 2018-11-29 11:29 | PN ---
Progress Note, Physician History of Present Illness: POD9 s/p extensive lysis of intestinal adhesions for developing SBO, with suture repair of small RUQ incisional hernia from inside, with findings of previous intestinal reconstruction, likely hepaticojejunostomy, done years ago after post-cholecystectomy complications per pt. Pt postop had new onset of afib with RVR and was transferred to telemetry, treated with cardizem drip and prn's - now stopped with rate controlled on po meds. NGT has been removed and she is tolerating full liquids diabetic all day yesterday. She is seen and examined in bed with daughter present. She is voiding in commode and having loose bowel movements. 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 Thinks she has been waiting too long to ask for pain meds, and then they make her feel sleepy. She feels much better now. She is somewhat hungry. Passing gas this morning, no nausea, wants to get back up to chair and walking. She has ambulated with PT, and is willing to consider a short stay in rehab for strengthening, depending on where she can go. BP and HR are stable but a bit low this morning. Head CT is to be done shortly per medicine and neuro. - Current Medication List Current Medications: Active Medications Acetaminophen (Tylenol -) 650 mg PO Q6H PRN PRN Reason: Pain Level 4 - 10 Allopurinol (Zyloprim -) 100 mg PO DAILY [facility] Atorvastatin Calcium (Lipitor -) 10 mg PO DAILY [facility] Clonidine (Catapres -) 0.2 mg PO TID [facility] Last Admin: 11/29/18 06:22 Dose: 0.2 mg Diltiazem HCl (Cardizem Injection -) 10 mg IVPUSH Q4H PRN PRN Reason: TACHYCARDIA Last Admin: 11/26/18 17:37 Dose: 10 mg Diltiazem HCl (Cardizem -) 90 mg PO Q6HPO [facility] Last Admin: 11/29/18 06:21 Dose: 90 mg Diphenhydramine HCl (Benadryl Injection -) 25 mg IVPB Q6H PRN PRN Reason: ITCHING Heparin Sodium (Porcine) (Heparin -) 5,000 unit SQ TID [facility] Last Admin: 11/29/18 06:22 Dose: 5,000 unit Sodium Chloride (Normal Saline -) 500 mls @ 500 mls/hr IV ASDIR STA Stop: 11/29/18 12:13 Sodium Chloride (Normal Saline -) 1,000 mls @ 83 mls/hr IV ASDIR BURTON Stop: 11/30/18 11:14 Insulin Aspart (Novolog Vial Sliding Scale -) 1 vial SQ ACHS [facility]; Protocol Last Admin: 11/29/18 06:23 Dose: 8 units Magnesium Sulfate (Magnesium Sulfate) 2 gm IVPB ONCE ONE Stop: 11/29/18 11:31 Morphine Sulfate (Morphine Injection -) 2 mg IVPUSH Q3H PRN PRN Reason: Pain Level 8 - 10 3rd/BRKTHRU Non-Formulary Medication (Metformin Hcl [Glucophage]) 1,000 mg PO BID [facility] Ondansetron HCl (Zofran Injection) 4 mg IVPUSH Q4H PRN PRN Reason: NAUSEA AND/OR VOMITING Last Admin: 11/25/18 06:39 Dose: 4 mg Oxycodone HCl (Roxicodone -) 5 mg PO Q4H PRN PRN Reason: Pain Level 6-10 BREAKTHROUGH Oxycodone HCl (Roxicodone -) 10 mg PO Q6H PRN PRN Reason: Pain Level 8 - 10 BREAKTHROUGH Propranolol HCl (Inderal -) 20 mg PO TID [facility] Stop: 11/29/18 23:00 Last Admin: 11/29/18 06:23 Dose: 20 mg Propranolol HCl (Inderal La -) 60 mg PO DAILY [facility] - Objective Vital Signs: Vital Signs Temperature 97.9 F 11/29/18 09:13 Pulse Rate 52 L 11/29/18 09:13 Respiratory Rate 12 11/29/18 09:13 Blood Pressure 91/84 11/29/18 09:13 O2 Sat by Pulse Oximetry (%) 96 11/29/18 09:13 Vital Signs Period Temp Pulse Resp BP Sys/Pascual Pulse Ox Last 24 Hr 97.2 F-98.8 F 52-132 12-20 91-140/52-84 96-100 Intake & Output 11/28/18 11/29/18 11/29/18 23:59 07:59 15:59 Intake Total 250 1000 510 Balance 250 1000 510 Weight 219 lb Intake: IV 900 150 1/2NS+20MEQ KCL 20 meq In 900 150 1,000 ml @ 75 mls/hr IV ASDIR BURTON Rx#:[id number] IVPB 100 Oral 250 360 Other: Voiding Method Bedside Commode Bedside Commode # Unmeasured Voids Void 1 Bowel Movement No Height 5 ft 5 in Body Mass Index (BMI) 36.4 Constitutional: Yes: No Distress, Calm, Obese Eyes: Yes: Conjunctiva Clear, EOM Intact HENT: Yes: Atraumatic, Normocephalic Respiratory: Yes: On Nasal O2. No: SOB Gastrointestinal: Yes: Normal Bowel Sounds, Soft, Abdomen, Obese, Distention ( some - tympany on percussion in upper abdomen), Tenderness (minimal incisional, no sig quadrant tenderness) Extremities: No: Cool, Cyanosis Integumentary: Yes: Incision (midline w/abhay). No: Jaundice, Rash Wound/Incision: Yes: Clean/Dry, Well Approximated, Abhay Intact, Open to air Neurological: Yes: Alert, Oriented Labs: CBC, BMP 11/29/18 05:30 11/29/18 05:30 Mg 1.3 BUN/Cr up a bit today - ....Imaging Cat Scan: Pending (head) Problem List - Problems (1) Small bowel obstruction Assessment/Plan: POD9 s/p extensive lysis of adhesions and RUQ incisional hernia repair s/p likely hepaticojejunostomy in past with intestinal reconstruction - with dilated/stagnant loop of anastomotic area had small enterotomy repaired in proximal SB with small yellow fluid leakage, minimal contamination doing well from postop standpoint incision c/d/i with abhay prn Tylenol for pain - will change breakthrough meds to oxycodone first line with a little morphine as backup monitor for effect trend labs, replete lytes prn - mag ordered keep saline for another 24 hrs per renal advance to diabetic soft diet would resume rest of home meds as indicated (diabetic, gout, statin) ok to start eliquis from surgical perspective discussed with Dr. Ram and Dr. Ge LOYOLA to chair and ambulate with assist as often as able pt willing to look at rehab facilities for short term before going home Code(s): K56.609 - UNSP INTESTNL OBST, UNSP TO PARTIAL VERSUS COMPLETE OBST (2) Atrial fibrillation with RVR Assessment/Plan: keep lytes repleted cardiology following echo done and noted HR controlled on po meds ok to start Eliquis or other anticoagulation, would check with urology to see if they plan ureteral stent removal this admission or later as outpatient, since it will require holding AC discussed with Dr. Jacinto Code(s): I48.91 - UNSPECIFIED ATRIAL FIBRILLATION (3) Hypertension Assessment/Plan: back on po meds BP a little low this morning fluids had been decreased Wed night with diet resumption - continuing for another day per renal med adjustments per cardio once fully back on po only Code(s): I10 - ESSENTIAL (PRIMARY) HYPERTENSION Qualifiers: Hypertension type: essential hypertension Qualified Code(s): I10 - Essential (primary) hypertension (4) Diabetes mellitus type 2 in obese Assessment/Plan: maintain glucose control FS with SSI coveraqe A1C noted high sugars high - would resume home diabetic regimen metformin reordered insulin regimen deferred to medicine - pt reports using 50 units lantus nightly before dinner Code(s): E11.69 - TYPE 2 DIABETES MELLITUS WITH OTHER SPECIFIED COMPLICATION; E66.9 - OBESITY, UNSPECIFIED (5) S/P ureteral stent placement Assessment/Plan: urology following renal ultrasound done stent management per uro - pt may need laser lithotripsy with stent removal timing? would discuss prior to initiating anticoagulation Code(s): Z96.0 - PRESENCE OF UROGENITAL IMPLANTS (6) Gout Code(s): M10.9 - GOUT, UNSPECIFIED Qualifiers: Gout site: toe Gout etiology: unspecified cause Chronicity: unspecified Laterality: unspecified laterality Qualified Code(s): M10.9 - Gout, unspecified (7) CKD (chronic kidney disease) stage 3, GFR 30-59 ml/min Assessment/Plan: BUN/Cr back up a little today - UOP good per pt nephrology following IVF per renal Code(s): N18.3 - CHRONIC KIDNEY DISEASE, STAGE 3 (MODERATE) (8) History of cholecystectomy Code(s): Z90.49 - ACQUIRED ABSENCE OF OTHER SPECIFIED PARTS OF DIGESTIVE TRACT (9) History of common bile duct surgery Code(s): Z98.890 - OTHER SPECIFIED POSTPROCEDURAL STATES
[2018-11-29] MEDS ORDERED: ATORVASTATIN CA 10 MG TABLET (FP) PO SCH (11:30)
[2018-11-29] MEDS: metFORMIN HCL 500 MG TABLET (FP) PO SCH ×2 (12:12→17:50)
--- NOTE | 2018-11-29 13:03 | PN ---
Progress Note (short form) - Note Progress Note: Renal follow up for CHACHA Pt seen and examined at the bedside was asked to re-evaluate the patient for rise in serum Cr pt is without any acute complaints no chest pain, sob, abd pain, fever or chlls BP was marginal overnight and this am Vital Signs Temperature 97.9 F 11/29/18 09:13 Pulse Rate 52 L 11/29/18 09:13 Respiratory Rate 12 11/29/18 09:13 Blood Pressure 91/84 11/29/18 09:13 O2 Sat by Pulse Oximetry (%) 96 11/29/18 09:13 Intake & Output 11/26/18 11/27/18 11/28/18 11/29/18 23:59 23:59 23:59 23:59 Intake Total 1050 4205 2355 1510 Output Total 4050 700 200 Balance -3000 3505 2155 1510 Weight 99.337 kg NAD awake and alert neck supple, no JVD RRR CTA soft NT/ND no LE edema, clubbing or edema CBC, BMP 11/29/18 05:30 11/29/18 05:30 Current Medications Acetaminophen (Tylenol -) 650 mg PO Q6H PRN PRN Reason: Pain Level 4 - 10 Allopurinol (Zyloprim -) 100 mg PO DAILY [facility] Atorvastatin Calcium (Lipitor -) 10 mg PO HS [facility] Clonidine (Catapres -) 0.2 mg PO TID [facility] Last Admin: 11/29/18 06:22 Dose: 0.2 mg Diltiazem HCl (Cardizem Injection -) 10 mg IVPUSH Q4H PRN PRN Reason: TACHYCARDIA Last Admin: 11/26/18 17:37 Dose: 10 mg Diltiazem HCl (Cardizem -) 90 mg PO Q6HPO [facility] Last Admin: 11/29/18 11:56 Dose: Not Given Diphenhydramine HCl (Benadryl Injection -) 25 mg IVPB Q6H PRN PRN Reason: ITCHING Heparin Sodium (Porcine) (Heparin -) 5,000 unit SQ TID [facility] Last Admin: 11/29/18 06:22 Dose: 5,000 unit Sodium Chloride (Normal Saline -) 1,000 mls @ 83 mls/hr IV ASDIR [facility] Stop: 11/30/18 11:14 Last Admin: 11/29/18 12:07 Dose: 83 mls/hr Insulin Aspart (Novolog Vial Sliding Scale -) 1 vial SQ ACHS [facility]; Protocol Last Admin: 11/29/18 11:25 Dose: 8 units Metformin HCl (Glucophage -) 1,000 mg PO BIDAC [facility] Last Admin: 11/29/18 12:12 Dose: 1,000 mg Morphine Sulfate (Morphine Sulfate) 2 mg IVPUSH Q3H PRN PRN Reason: Pain Level 8 - 10 3rd/BRKTHRU Ondansetron HCl (Zofran Injection) 4 mg IVPUSH Q4H PRN PRN Reason: NAUSEA AND/OR VOMITING Last Admin: 11/25/18 06:39 Dose: 4 mg Oxycodone HCl (Roxicodone -) 5 mg PO Q4H PRN PRN Reason: Pain Level 6-10 BREAKTHROUGH Oxycodone HCl (Roxicodone -) 10 mg PO Q6H PRN PRN Reason: Pain Level 8 - 10 BREAKTHROUGH Propranolol HCl (Inderal -) 20 mg PO TID [facility] Stop: 11/29/18 23:00 Last Admin: 11/29/18 06:23 Dose: 20 mg Propranolol HCl (Inderal La -) 60 mg PO DAILY [facility] 72 year old woman with hx of CKD, Nephrolithiasis, DM who presented with Abd pain secondary to SBO s/p surgical intervention with CHACHA. #Recurrent CHACHA Likely etiology of CHACHA is hypovolemia/hypotension will give NS bolous of 500cc and then NS at 84cc per hour repeat labs this evening check bladder scan to r/o urinary retention in setting of opiod use Thank you Ethan Ram DO
[2018-11-29] MEDS: ACETAMINOPHEN 325 MG TABLET (FP) PO PRN (18:23)
[2018-11-29] MEDS: oxyCODONE HCL 5 MG TABLET PO PRN (18:23)
[2018-11-29] MEDS: MORPHINE SULFATE 2 MG/ML VIAL IVPUSH PRN (20:50)
[2018-11-29] MEDS: ATORVASTATIN CA 10 MG TABLET (FP) PO SCH (21:01)
[2018-11-30] MEDS: dilTIAZem HCL 60 MG TABLET (FP) PO SCH (00:30)
[2018-11-30] MEDS ORDERED: dilTIAZem HCL 60 MG TABLET (FP) ONE ×3 (05:43→17:39)
[2018-11-30] MEDS ORDERED: dilTIAZem HCL 30 MG TABLET (FP) ONE ×3 (05:44→17:39)
[2018-11-30] MEDS: cloNIDine HCL 0.1 MG TABLET PO SCH (05:53)
[2018-11-30] MEDS: oxyCODONE HCL 5 MG TABLET PO PRN ×3 (05:54→15:36)
[2018-11-30] MEDS: ACETAMINOPHEN 325 MG TABLET (FP) PO PRN ×2 (05:56→12:43)
[2018-11-30] MEDS: HEPARIN NA (PORCINE) 5,000 UNITS/ML 1ML VIAL SQ SCH ×3 (05:58→22:56)
[2018-11-30] MEDS ORDERED: DILTIAZEM 60 MG, DILTIAZEM 30 MG PO SCH (06:00)
[2018-11-30] MEDS: INSULIN SLIDING SCALE (NOVOLOG) 1 VIAL SQ SCH ×4 (06:00→23:00)
[2018-11-30] MEDS: metFORMIN HCL 500 MG TABLET (FP) PO SCH (06:00)
[2018-11-30 07:20] LABS: ANION GAP 10 MMOL/L (8-16); BLOOD UREA NITROGEN 37 mg/dL (7-18); CALCIUM 7.4 mg/dL (8.5-10.1); CHLORIDE 103 mmol/L (98-107); CO2 23 mmol/L (21-32); GLUCOSE,RANDOM 274 mg/dL (74-106); MAGNESIUM 2.1 mg/dL (1.8-2.4); SODIUM 136 mmol/L (136-145)
--- NOTE | 2018-11-30 08:46 | OP ---
DATE OF OPERATION: 11/20/2018 PREOPERATIVE DIAGNOSIS: Small bowel obstruction and incisional hernia. POSTOPERATIVE DIAGNOSIS: Small bowel obstruction and incisional hernia, extensive intestinal adhesions and dilated/stagnant Jackelin-en-Y bowel loop in the right upper quadrant. OPERATION: Laparotomy with extensive lysis of adhesions (2 hours) and suture repair of right upper quadrant incisional hernia. SURGEON: Neal Rodney MD THERAPEUTIC CASE MANAGER: Jace Piña MD ANESTHESIA: General endotracheal and local 20 mL of 0.5% Marcaine. ESTIMATED BLOOD LOSS: 100 mL. FLUIDS: 1800 mL crystalloid. URINE OUTPUT: 500 mL. DRAINS: Preoperatively placed Menon nasogastric tube left in place and Salas catheter placed at surgery and left postoperative. FINDINGS: The patient's pre-existing mesh hernia repair in the midline appeared to be Windsor-Chester was partially divided and left in situ. There were matted loops of small bowel in the right upper abdomen as well as bowel adherent to right upper quadrant incisional hernia and a scar line along the right upper and lateral abdomen. Once all adhesions had been lysed to the point we were able to appreciate the small bowel anatomy, there was evidence of a previous small bowel reconstruction, possibly a Jackelin-en-Y, with dilation of the stagnant loop that had been appreciated on CT scan. There was a tiny enterotomy evident in the proximal small bowel high in the right upper quadrant against the area underlying the scar and near the incisional hernia, which was repaired with sutures with minimal leakage. There was no actual resection performed. The hernia itself was repaired with a suture from the inside with a arlrhp-gu-ovqer stitch. DISPOSITION: Stable and extubated to PACU. INDICATIONS FOR PROCEDURE: The patient is a 72-year-old morbidly obese female with a history of hypertension, hyperlipidemia, diabetes, chronic kidney disease, and gout who takes daily aspirin as part of her medications and recently returned from [place] after several months stay, which is typical for her, at which time she had a left ureteral stent placed. At the time when she was told whatever was "wrong with her" might not be due to kidney stones, she elected to return to [place] to follow with her own urologist, and had been seen in the office as an outpatient, placed on ciprofloxacin for presumed UTI in conjunction with the stent, and had an outpatient CT scan ordered without contrast, which was done prior to coming to the hospital the day that the CT was performed. However, she did have some pain in her central and right abdomen she attributed to having taken her ciprofloxacin on an empty stomach, but the pain persisted, and she returned to the emergency room later after the CT had been performed. She had some constipation after leaving the [facility] earlier in October and cleaned herself out with magnesium citrate. Other than that, her last formed bowel movement had been soft the day prior to coming to the ER. She had nausea but no vomiting. No fever, no chills. Had a surgical history significant for an open cholecystectomy with a large right subcostal scar, previous hysterectomy, previous abdominal wall hernia repair with mesh many years ago with mesh visible on the CT scan in the middle and lower midline abdominal area. She had also had previous ureteral stenting. She was initially seen by Surgery in consultation after admission by Medicine to the hospital because of findings on the CT of a "mildly dilated small bowel loop in the right lower quadrant" thought to be less likely obstructive in nature but then she was still having abdominal pain. Labs had also been significant for a white count of 11.5, lactate 2.4, and a slightly elevated from baseline BUN 34 and creatinine 1.5. On initial examination and review of the imaging, there was a large, stool-filled loop of bowel on the CT scan in the right upper to mid abdomen, which was palpable as a tender , mildly firm area on her abdomen without any rebound or guarding. The initial CT had been done with no contrast as ordered by the urologist. It was difficult to appreciate whether this affected loop of bowel may have represented her cecum or other bowel volvulus. Thus, the CT was repeated with oral contrast for better assessment and antibiotics changed from the Cipro she had been on at home to Zosyn just in case. Further workup over the next several days including that repeat CT scan ultimately identified that the loop of bowel affected was not cecum but appeared to be a separate portion of small bowel. The cecum was clearly visible below it and did not appear to be involved. The oral contrast that she got for the repeat CT scan while she was maintained n.p.o. with fluids, otherwise, was followed through with abdominal films and then noted to be evacuated by her with loose, liquid bowel movements over the next couple of days. She continued to have abdominal pain intermittently, at times requiring IV narcotics for pain control. Last night, she was seen by the GI doctor with significant abdominal pain even despite having had some IV morphine with concern by GI for increasing and possible ischemic changes in the small bowel, thus, he sent her for CT angiogram abd/pelvis, which upon review with Radiology did not show any acute vascular findings, but the affected loop of small bowel in the right mid abdomen that we had been following appeared to be causing a developing small bowel obstruction with some more proximally dilated bowel loops and a thickened loop of bowel behind the affected site as well. The contrast from previous administration had reached the right colon, although there was still some fecalized content noted in the dilated loop of bowel, the location of which had not changed. Last night at this time, I placed a single lumen nasogastric tube to low intermittent suction with return of approximately 100 mL of yellow fluid and discussed with the patient that it was time to consider operative exploration and potential resection of this affected loop of bowel. Risks, benefits, and alternatives of surgery inclusive of possible diagnostic laparoscopy, possible laparotomy, possible bowel resection, possible ostomy were discussed with the patient including, but not limited to, bleeding, infection, injury to adjacent structures, intestinal leak or injury, intra-abdominal abscess, incisional hernia, need for further procedures, and and alternatives of not doing surgery at this time with the associated risks of progressive obstruction, bowel perforation, bowel ischemia, sepsis, recurrence or were all discussed and understood. The patient desired to proceed with the operation and signed informed consent for the same, with the plan to take her to the operating room this morning. Additional IV fluids were given overnight. Antibiotics had been continued. She is now brought to the OR for this procedure. OPERATIVE TECHNIQUE: The patient was brought to the operating room and laid supine on the operating table. Sequential compression devices were used on bilateral lower extremities. After induction and intubation by Anesthesia, a Salas catheter was placed in the patient's bladder, which was left in at the end of the case. The patient 's abdomen was prepped and draped in sterile fashion, and discussion was briefly had with the recognition that laparoscopy was not likely to be of any help in the long run as complete identification of the bowel anatomy and possible resection would likely need to be performed, thus, laparotomy incision was initially made with a scalpel in the upper midline and carried into the subcutaneous tissues with electrocautery, until the abdominal wall fascia was identified and cleared in the midline with the electrocautery. The midline fascia was then divided with electrocautery revealing preperitoneal fat in the upper abdomen. The posterior sheath was grasped with tips of clamps and elevated, such that the peritoneum could be entered with Metzenbaum scissors. Upon entry into the peritoneal cavity, a finger was inserted to protect the bowel underlying the midline, and the fascia opened along the full extent of the excision with electrocautery. The incision initially had been carried down partly into the area anticipated to include previously placed mesh in the midline of the abdomen from her hernia repair. As division of the fascia encountered the upper portion of this mesh, the fascia was divided over the mesh , and it was noted to be possibly Windsor-Chester in the midline. Scissors were used to carefully cut through the mesh itself over a short distance to divide the midline in the abdominal wall. Once the incision had been completely opened, attention was turned to the fact that there were multiple and extensive adhesions of both bowel and adhesive scar tissue underlying the abdominal wall, primarily on the right side where the patient had her previous right subcostal scar, and we began the process of extensive lysis of adhesions that lasted at least 2 hours; this involved both sharp division with scissors as well as electrocautery division of adhesions from the underlying anterior abdominal wall from bowel to bowel and from bowel to mesentery. This was undertaken meticulously to avoid any injury to the bowel itself and to slowly attempt to identify the anatomy of the bowel, which, the more of it we exposed, the more we realized it had probably been previously reconstructed. There was a large loop of bowel in the right upper quadrant corresponding to the affected loop on the CT scan. It did appear dilated and to have some palpable, perhaps fecalized, mushy content within. It took some time to realize that it was not a simple loop of bowel with a proximal and a distal aspect, but appeared to have been previously anastomosed to other bowel loops. At one point, a loop of bowel was identified running distally that allowed us to follow this all the way to the ileocecal valve and the cecum hiding down in the lower right abdomen. This bowel was brought out of the incision enough to be able to follow the distal small bowel all the way to identify what appeared to be a normal appendix thus confirming that, although the patient was not previously clear as to whether she had it removed, we were able to confirm that in fact she still had her appendix, and it appeared to be normal. The distal bowel was then replaced into the abdomen, and most of the proximal bowel was where we were working to try to identify the complete anatomy thereof. There was a loop of proximal small bowel that appeared to be stuck high up in the right upper quadrant to the underlying right subcostal scar. This was thought to be proximal to the large dilated loops that we were working next to, but we could not clearly tell yet where bowel either entered or left the loop specifically. As the bowel was carefully from the anterior abdominal wall underneath this right subcostal scar , it was also appreciated high up in the right upper quadrant that there was a small defect of an incisional hernia with a combination of some fatty tissue, omentum , and perhaps a little bit of bowel stuck into an opening no more than 2 or 3 cm wide. Metzenbaum scissors were used to carefully lyse this area, as the content of the hernia was reduced out of it. At one point, we noted some minimal leakage of yellow fluid that appeared to be coming from this proximal small bowel loop. A silk uomohe-to-yozfc suture was used to oversew the area of the small enterotomy, and there was minimal leakage actually in the area. Once the entire area and loop of bowel had been from the anterior abdominal wall and out of the small hernia site, later in the operation there was also noted to still be a couple of drops of yellow fluid in the area, and an additional stitch was taken to ensure that the enterotomy was closed. The small hernia defect again was noted to be underlying that right subcostal scar. Before we concluded the operation, a [id number] 2-0 Prolene suture was used to close this defect from the inside. As we continued to lyse adhesions and were able to lay out the anatomy of the small bowel, it became far more clear that the patient appeared to have had a previous, possibly Jackelin-en-Y, reconstruction of her small bowel with at least 1 proximal portion extending up into the right upper quadrant, where we could not completely see the origin of those loops. One of the loops from the dilated bowel loop clearly extended distally into the jejunum and the ileum, but there was an additional portion of bowel attached to this dilated loop where it had clearly been anastomosed but also went proximally, and that could only be followed a short distance proximally, which is why we considered the possibility of a Jackelin-en-Y reconstruction. Given the patient's extensive gallbladder operation in the past, it was also thought that this may have been part of a common bile duct reconstruction and could also represent a hepaticojejunostomy. We made every attempt to avoid any injury to the proximal bowel. We were able to palpate and feel the NG tube in the body of the stomach, and it appeared to be in good position as it had been placed. It was noted as well that part of the reconstruction appeared to traverse some of the mesentery perhaps of the colon where there was no acute rent or tear in the mesentery, but at one place we could clearly place a hand through what appeared to be a mesenteric defect, where the bowel traversed this area adjacent to the dilated stagnant loop. Once we were able to clearly lay the bowel out with what appeared to be a T-shaped reconstruction up into this dilated loop. The ultimate decision was rather than trying to resect and reattach proximal and distal bowel, since it was not clear that there was a single proximal nor single distal loop to be excised and reconstructed, that we would simply leave things as they were, but with the extensive lysis of adhesions, hope that the patient would no longer have significant pain or symptoms from what was probably a chronic partial small bowel obstruction related to this reconstruction. We knew from the CT scan previously that the oral contrast had traversed this entire area and gotten into the distal colon, thus were not concerned with any element of complete obstruction. The abdomen was irrigated with saline solution, which was suctioned primarily from the right upper quadrant but also other reachable quadrants. We did not do any extensive lysis toward the left side of the abdomen underneath the abdominal wall, but there was much less significant scarring up to this area. We were able to appreciate the transverse colon separately, and it appeared normal. Again, the small area of the actual hernia inside the abdominal wall was repaired with a suture. The abdomen having been irrigated, then we returned the small bowel to the abdominal cavity and laid it down as carefully as possible without any twists present in the configuration it most appropriately seemed to lie. There really was no significant omentum to draw down to cover this area of bowel for closure of the abdominal wall. With the presence of the Windsor-Chester mesh in the midline when it came to abdominal wall closure, we elected to close the peritoneal layer separately underneath the area that the mesh was present, and this was done with a running Vicryl suture starting in the midline underneath the mesh, and the peritoneum was closed to a short distance just above where the Windsor-Chester was present. A couple of additional sutures in the peritoneum were taken further up to tack it together. The abdominal wall fascia was then closed with two No. 1 looped PDS sutures in running fashion starting superiorly and inferiorly and being tied in the middle. This portion of the repair in the lower aspect of the incision was performed entirely above the level of the mesh itself where it existed. The incision was then again irrigated with saline solution. Hemostasis had been achieved with electrocautery where necessary all throughout the case, and the skin was closed with abhay and dressed with folded gauze and Tegaderm, after local anesthetic was infiltrated along the incision line at the request of Anesthesia. Counts were correct at the end of the procedure. The patient was then awakened and extubated by Anesthesia, moved back to a stretcher, and taken to the recovery room in stable condition having tolerated the procedure well. Dr. Piña was an essential psychiatric nursing assistant throughout the procedure beginning with entry into the abdominal cavity, retraction, and extensive assistance with manipulation of the bowel and facilitating the lysis of adhesions over the course of the 2 hours. He then assisted with closure of the abdominal wall from both sides and skin closure. Neal Rodney M.D. [id number] MTDD
[2018-11-30] MEDS ORDERED: PT OWN MED DRAWER 7, Y5N ONE (09:55)
[2018-11-30] MEDS: ALLOPURINOL 100 MG TABLET (FP) PO SCH (10:10)
--- NOTE | 2018-11-30 10:41 | PN ---
Progress Note (short form) - Note Progress Note: s: no cp sob palps dizzy o: Vital Signs Period Temp Pulse Resp BP Sys/Pascual Pulse Ox Last 24 Hr 97.4 F-98.8 F 59-72 14-22 103-135/57-66 97-98 Constitutional: Yes: Well Nourished, No Distress, Calm Eyes: Yes: Conjunctiva Clear Respiratory: Yes: Regular, CTA Bilaterally Gastrointestinal: Yes: Tenderness Cardiovascular: Yes: irreg JVD: No Heart Sounds: Yes: S1, S2 Murmur: No: Systolic Murmur Extremities: No: Cold Edema: No Peripheral Pulses: 2+ Left Doralis Pedis, 2+ Right Dorsalis Pedis Integumentary: No: Jaundice Neurological: Yes: Alert, Oriented Psychiatric: No: Agitated Current Medications Generic Name Dose Route Start Last Admin Trade Name Freq PRN Reason Stop Dose Admin Acetaminophen 650 mg 11/29/18 11:22 11/30/18 05:56 Tylenol - PO 650 mg Q6H PRN Administration Pain Level 4 - 10 Allopurinol 100 mg 11/30/18 10:00 11/30/18 10:10 Zyloprim - PO 100 mg DAILY BURTON Administration Atorvastatin Calcium 10 mg 11/29/18 22:00 11/29/18 21:01 Lipitor - PO 10 mg HS BURTON Administration Diltiazem HCl 10 mg 11/22/18 17:18 11/26/18 17:37 Cardizem Injection - IVPUSH 10 mg Q4H PRN Administration TACHYCARDIA Diltiazem HCl 60 mg/ Diltiazem 90 mg 11/30/18 10:33 HCl 30 mg PO Q6HPO BURTON Diphenhydramine HCl 25 mg 11/26/18 17:12 Benadryl Injection - IVPB Q6H PRN ITCHING Heparin Sodium (Porcine) 5,000 unit 11/20/18 14:00 11/30/18 05:58 Heparin - SQ 5,000 unit TID BURTON Administration Sodium Chloride 1,000 mls @ 83 mls/hr 11/29/18 11:15 11/29/18 12:07 Normal Saline - IV 11/30/18 11:14 83 mls/hr ASDIR BURTON Administration Insulin Aspart 1 vial 11/20/18 16:30 11/30/18 06:00 Novolog Vial Sliding Scale - SQ 6 units ACHS BURTON Administration Protocol Metformin HCl 1,000 mg 11/29/18 12:00 11/30/18 06:00 Glucophage - PO 1,000 mg BIDAC BURTON Administration Morphine Sulfate 2 mg 11/29/18 11:18 11/29/18 20:50 Morphine Sulfate IVPUSH 2 mg Q3H PRN Administration Pain Level 8 - 10 3rd/BRKTHRU Ondansetron HCl 4 mg 11/20/18 12:08 11/25/18 06:39 Zofran Injection IVPUSH 4 mg Q4H PRN Administration NAUSEA AND/OR VOMITING Oxycodone HCl 5 mg 11/29/18 11:15 11/30/18 05:54 Roxicodone - PO 5 mg Q4H PRN Administration Pain Level 6-10 BREAKTHROUGH Oxycodone HCl 10 mg 11/29/18 11:15 Roxicodone - PO Q6H PRN Pain Level 8 - 10 BREAKTHROUGH Propranolol HCl 60 mg 11/30/18 10:00 11/30/18 10:10 Inderal La - PO 60 mg DAILY BURTON Administration CBC, BMP 11/29/18 05:30 11/30/18 05:30 Assessment/Plan EKG: initial sinus, LVH, first deg AVB EKG 11/22 afib with RVR rate 135 bpm echo 11/2016 LV mildly dilated, nl LV function, sigmoid septum, RV nl, LA severely dilated, RA mildly enlarged, mild MR, mild TR, at least mild pulm HTN, RVSP at least 42 mmHg tele: afib , rate controlled afib - in post op setting after ex lap, PAN - 11/25: converted spontaneously now to sinus - 11/26: overnight converted back to afib with RVR, dilt gtt was started, initially poor IV access now has been running, no improvement with additional lopressor 5 mg IV this morning. replete K and Mg, digoxin 0.125 mg IV x 1 ordered, cont dilt gtt - 11/27: started diltiazem 60 mg PO Q6H, increase to 90 mg Q6H, start propranolol 20 mg Q6H, uptitrate as tolerated, wean dilt gtt as tolerated -11/28-6: rate controlled on po meds, off dilt gtt now. head ct pending, if benign will start eliquis SBO s/p ex lap, PAN - doing well post op from surgical pov HTN -will hold clonidine for now as bp on lower side and pt requiring ivfs for chacha. cont dilt/inderal. pulm HTN, chronic diastolic HF - mild to mod, likely 2/2 diastolic CHF - appears euvolemic DM - manage per primary HLD - holding statin CHACHA on CKD - Cr improved initially but now up again today, renal following. -cont ivfs. bp control as above.
[2018-11-30] MEDS: DILTIAZEM 60 MG, DILTIAZEM 30 MG PO SCH ×2 (12:50→17:41)
[2018-11-30] MEDS: MORPHINE SULFATE 2 MG/ML VIAL IVPUSH PRN ×2 (13:03→20:47)
--- NOTE | 2018-11-30 13:52 | PN ---
Progress Note, Physician - Current Medication List Current Medications: Active Medications Acetaminophen (Tylenol -) 650 mg PO Q6H PRN PRN Reason: Pain Level 4 - 10 Last Admin: 11/30/18 12:43 Dose: 650 mg Allopurinol (Zyloprim -) 100 mg PO DAILY [facility] Last Admin: 11/30/18 10:10 Dose: 100 mg Atorvastatin Calcium (Lipitor -) 10 mg PO HS [facility] Last Admin: 11/29/18 21:01 Dose: 10 mg Diltiazem HCl (Cardizem Injection -) 10 mg IVPUSH Q4H PRN PRN Reason: TACHYCARDIA Last Admin: 11/26/18 17:37 Dose: 10 mg Diltiazem HCl 60 mg/ Diltiazem (HCl 30 mg) 90 mg PO Q6HPO [facility] Last Admin: 11/30/18 12:50 Dose: 90 mg Diphenhydramine HCl (Benadryl Injection -) 25 mg IVPB Q6H PRN PRN Reason: ITCHING Heparin Sodium (Porcine) (Heparin -) 5,000 unit SQ TID [facility] Last Admin: 11/30/18 13:34 Dose: 5,000 unit Insulin Aspart (Novolog Vial Sliding Scale -) 1 vial SQ [facility]; Protocol Last Admin: 11/30/18 12:59 Dose: 6 units Metformin HCl (Glucophage -) 1,000 mg PO BIDAC [facility] Last Admin: 11/30/18 06:00 Dose: 1,000 mg Morphine Sulfate (Morphine Sulfate) 2 mg IVPUSH Q3H PRN PRN Reason: Pain Level 8 - 10 3rd/BRKTHRU Last Admin: 11/30/18 13:03 Dose: 2 mg Ondansetron HCl (Zofran Injection) 4 mg IVPUSH Q4H PRN PRN Reason: NAUSEA AND/OR VOMITING Last Admin: 11/25/18 06:39 Dose: 4 mg Oxycodone HCl (Roxicodone -) 5 mg PO Q4H PRN PRN Reason: Pain Level 6-10 BREAKTHROUGH Last Admin: 11/30/18 13:37 Dose: 5 mg Oxycodone HCl (Roxicodone -) 10 mg PO Q6H PRN PRN Reason: Pain Level 8 - 10 BREAKTHROUGH Propranolol HCl (Inderal La -) 60 mg PO DAILY [facility] Last Admin: 11/30/18 10:10 Dose: 60 mg - Objective Vital Signs: Vital Signs Temperature 98.4 F 11/30/18 09:00 Pulse Rate 66 11/30/18 09:00 Respiratory Rate 22 H 11/30/18 09:00 Blood Pressure 125/58 L 11/30/18 09:00 O2 Sat by Pulse Oximetry (%) 97 11/30/18 09:00 Cardiovascular: Yes: S1, S2 Respiratory: Yes: Regular, CTA Bilaterally Gastrointestinal: Yes: Normal Bowel Sounds, Soft, Tenderness Labs: CBC, BMP 11/29/18 05:30 11/30/18 05:30 INR, PTT INR 1.19 (0.82-1.09) 11/16/18 14:35 Problem List - Problems (1) Small bowel obstruction Code(s): K56.609 - UNSP INTESTNL OBST, UNSP TO PARTIAL VERSUS COMPLETE OBST (2) Atrial fibrillation with RVR Code(s): I48.91 - UNSPECIFIED ATRIAL FIBRILLATION (3) Head ache Code(s): R51 - HEADACHE (4) Diabetes mellitus type 2 in obese Code(s): E11.69 - TYPE 2 DIABETES MELLITUS WITH OTHER SPECIFIED COMPLICATION; E66.9 - OBESITY, UNSPECIFIED (5) Hypertension Code(s): I10 - ESSENTIAL (PRIMARY) HYPERTENSION Qualifiers: Hypertension type: essential hypertension Qualified Code(s): I10 - Essential (primary) hypertension (6) Hydronephrosis, left Code(s): N13.30 - UNSPECIFIED HYDRONEPHROSIS Assessment/Plan - Problems (1) Headache Assessment/Plan: ct head nad neurology noted Code(s): R51 - HEADACHE (2) Abdominal pain Assessment/Plan: Note: Operative Date: 11/20/18 Pre-Operative Diagnosis: small bowel obstruction, incisional hernia Operation: laparotomy with extensive lysis of adhesions (2 hours), suture repair of right upper quadrant incisional hernia iv zosyn Findings: mesh (Goretex?) in midline - partially divided, left in situ; matted loops of small bowel in right abdomen, incisional hernia RUQ and right lateral abdomen, evidence of previous Jackelin-en-Y bowel reconstruction with dilation of stagnant loop; tiny enterotomy made in proximal SB in RUQ, repaired with sutures with minimal leakage; no resection performed Post-Operative Diagnosis: Other (same as preop with stagnant Jackelin-en-Y bowel loop in RUQ, extensive intestinal adhesions) Surgeon: Neal Rodnye Executive Advisor: Jace Piña Anesthesiologist/ELEVATOR EXAMINER AND ADJUSTER: Chuckie Nguyen Anesthesia: General, Local (20ML 0.5% marcaine) Specimens Removed: no resection Estimated Blood Loss (mls): 100 Drains & Tubes with Location: preop [place] NGT; Salas placed and left Drains, Volume Out (mls): 500 (UOP) Fluid Volume Replaced (mls): 1,800 (crystalloid) Operative Report Dictated: Yes dvt ppx ng tube to suction- removed pain control iv abx zosyn full liquid diet -advance per surgery Code(s): R10.9 - UNSPECIFIED ABDOMINAL PAIN Qualifiers: Abdominal location: unspecified location Qualified Code(s): R10.9 - Unspecified abdominal pain (3) Atrial fibrillation with RVR Assessment/Plan: started on propanolol continue cardizem Code(s): I48.91 - UNSPECIFIED ATRIAL FIBRILLATION (4) S/P ureteral stent placement Assessment/Plan: seen by urology needs laser lithotripsy as an outpatient Code(s): Z96.0 - PRESENCE OF UROGENITAL IMPLANTS (5) Diabetes mellitus type 2 in obese Assessment/Plan: bgm sliding scale currently NPO with ng tube dc metformin Code(s): E11.69 - TYPE 2 DIABETES MELLITUS WITH OTHER SPECIFIED COMPLICATION; E66.9 - OBESITY, UNSPECIFIED (6) Renal insuficiency Assessment/Plan: cr rising monitor renal on case may need imaging dc planning Physical Therapy--may need snf
--- NOTE | 2018-11-30 17:17 | PN ---
Progress Note (short form) - Note Progress Note: Renal follow up for CHACHA Pt seen and examined at the bedside no acute complaints no sob, cp, abd pain bladder scan yesterday showed < 50cc of urine in bladder after voiding has been on IVF BP is improved Vital Signs Temperature 98.6 F 11/30/18 14:00 Pulse Rate 59 L 11/30/18 14:00 Respiratory Rate 20 11/30/18 14:00 Blood Pressure 123/50 L 11/30/18 14:00 O2 Sat by Pulse Oximetry (%) 97 11/30/18 09:00 Intake & Output 11/27/18 11/28/18 11/29/18 11/30/18 23:59 23:59 23:59 23:59 Intake Total 4205 2355 3498 581 Output Total 700 200 500 Balance 3505 2155 2998 581 Weight 99.337 kg NAD awake and alert neck supple, no JVD RRR CTA soft NT/ND no LE edema, clubbing or edema CBC, BMP 11/29/18 05:30 11/30/18 05:30 Current Medications Acetaminophen (Tylenol -) 650 mg PO Q6H PRN PRN Reason: Pain Level 4 - 10 Last Admin: 11/30/18 12:43 Dose: 650 mg Allopurinol (Zyloprim -) 100 mg PO DAILY [facility] Last Admin: 11/30/18 10:10 Dose: 100 mg Atorvastatin Calcium (Lipitor -) 10 mg PO HS [facility] Last Admin: 11/29/18 21:01 Dose: 10 mg Diltiazem HCl (Cardizem Injection -) 10 mg IVPUSH Q4H PRN PRN Reason: TACHYCARDIA Last Admin: 11/26/18 17:37 Dose: 10 mg Diltiazem HCl 60 mg/ Diltiazem (HCl 30 mg) 90 mg PO Q6HPO [facility] Last Admin: 11/30/18 12:50 Dose: 90 mg Diphenhydramine HCl (Benadryl Injection -) 25 mg IVPB Q6H PRN PRN Reason: ITCHING Heparin Sodium (Porcine) (Heparin -) 5,000 unit SQ TID [facility] Last Admin: 11/30/18 13:34 Dose: 5,000 unit Insulin Aspart (Novolog Vial Sliding Scale -) 1 vial SQ ACHS [facility]; Protocol Last Admin: 11/30/18 17:02 Dose: 4 units Morphine Sulfate (Morphine Sulfate) 2 mg IVPUSH Q3H PRN PRN Reason: Pain Level 8 - 10 3rd/BRKTHRU Last Admin: 11/30/18 13:03 Dose: 2 mg Ondansetron HCl (Zofran Injection) 4 mg IVPUSH Q4H PRN PRN Reason: NAUSEA AND/OR VOMITING Last Admin: 11/25/18 06:39 Dose: 4 mg Oxycodone HCl (Roxicodone -) 5 mg PO Q4H PRN PRN Reason: Pain Level 6-10 BREAKTHROUGH Last Admin: 11/30/18 15:36 Dose: 5 mg Oxycodone HCl (Roxicodone -) 10 mg PO Q6H PRN PRN Reason: Pain Level 8 - 10 BREAKTHROUGH Propranolol HCl (Inderal La -) 60 mg PO DAILY [facility] Last Admin: 11/30/18 10:10 Dose: 60 mg 72 year old woman with hx of CKD, Nephrolithiasis, DM who presented with Abd pain secondary to SBO s/p surgical intervention with CHACHA. #Recurrent CHACHA Renal function essentially unchanged from yesterday bladder scan showed no retention will continue IVF for additional 24 hours would withhold diuretics for now as pt without signs of fluid overload avoid nsaids use, contrast exposure no acute need for [employer] Thank you Ethan Ram DO
[2018-11-30] MEDS ORDERED: SODIUM CHLORIDE 1,000 ML IV SCH (17:30)
--- NOTE | 2018-11-30 18:08 | PN ---
Progress Note, Physician History of Present Illness: POD10 s/p extensive lysis of intestinal adhesions for developing SBO, with suture repair of small RUQ incisional hernia from inside, with findings of previous intestinal reconstruction, likely hepaticojejunostomy, done years ago after post-cholecystectomy complications per pt. Pt postop had new onset of afib with RVR and was transferred to telemetry, treated with cardizem drip and prn's - now rate controlled on po meds. She is tolerating soft diabetic diet. She is seen and examined in bed with friends present. She is voiding in commode and having bowel movements, less often now, passing gas as well. Ambulated earlier with nurse as far as elevator, wants to get up again tonight. Had chicken soup, not too hungry for dinner yet though tray is here. Had abdominal pain earlier after returning from head CT, better now after medications. - Current Medication List Current Medications: Active Medications Acetaminophen (Tylenol -) 650 mg PO Q6H PRN PRN Reason: Pain Level 4 - 10 Last Admin: 11/30/18 12:43 Dose: 650 mg Allopurinol (Zyloprim -) 100 mg PO DAILY [facility] Last Admin: 11/30/18 10:10 Dose: 100 mg Atorvastatin Calcium (Lipitor -) 10 mg PO HS [facility] Last Admin: 11/29/18 21:01 Dose: 10 mg Diltiazem HCl (Cardizem Injection -) 10 mg IVPUSH Q4H PRN PRN Reason: TACHYCARDIA Last Admin: 11/26/18 17:37 Dose: 10 mg Diltiazem HCl 60 mg/ Diltiazem (HCl 30 mg) 90 mg PO Q6HPO [facility] Last Admin: 11/30/18 17:41 Dose: 90 mg Diphenhydramine HCl (Benadryl Injection -) 25 mg IVPB Q6H PRN PRN Reason: ITCHING Heparin Sodium (Porcine) (Heparin -) 5,000 unit SQ TID [facility] Last Admin: 11/30/18 13:34 Dose: 5,000 unit Sodium Chloride (Normal Saline -) 1,000 mls @ 83 mls/hr IV ASDIR [facility] Stop: 12/24/18 17:29 Insulin Aspart (Novolog Vial Sliding Scale -) 1 vial SQ ACHS [facility]; Protocol Last Admin: 11/30/18 17:02 Dose: 4 units Morphine Sulfate (Morphine Sulfate) 2 mg IVPUSH Q3H PRN PRN Reason: Pain Level 8 - 10 3rd/BRKTHRU Last Admin: 11/30/18 13:03 Dose: 2 mg Ondansetron HCl (Zofran Injection) 4 mg IVPUSH Q4H PRN PRN Reason: NAUSEA AND/OR VOMITING Last Admin: 11/25/18 06:39 Dose: 4 mg Oxycodone HCl (Roxicodone -) 5 mg PO Q4H PRN PRN Reason: Pain Level 6-10 BREAKTHROUGH Last Admin: 11/30/18 15:36 Dose: 5 mg Oxycodone HCl (Roxicodone -) 10 mg PO Q6H PRN PRN Reason: Pain Level 8 - 10 BREAKTHROUGH Propranolol HCl (Inderal La -) 60 mg PO DAILY [facility] Last Admin: 11/30/18 10:10 Dose: 60 mg - Objective Vital Signs: Vital Signs Temperature 98.6 F 11/30/18 14:00 Pulse Rate 59 L 11/30/18 14:00 Respiratory Rate 20 11/30/18 14:00 Blood Pressure 123/50 L 11/30/18 14:00 O2 Sat by Pulse Oximetry (%) 97 11/30/18 09:00 Vital Signs Period Temp Pulse Resp BP Sys/Pascual Pulse Ox Last 24 Hr 97.5 F-99 F 59-72 18-22 103-136/50-72 97-98 Intake & Output 11/30/18 11/30/18 11/30/18 07:59 15:59 23:59 Intake Total 581 1190 Balance 581 1190 Intake: IV 581 830 Normal Saline - 1,000 ml 830 @ 83 mls/hr IV ASDIR [facility] Rx#:[id number] s/l 581 Oral 360 Other: Voiding Method Bedside Commode Bowel Movement Yes: small amount this morning # Bowel Movements 1 Constitutional: Yes: No Distress, Calm, Obese Eyes: Yes: Conjunctiva Clear, EOM Intact HENT: Yes: Atraumatic, Normocephalic Respiratory: Yes: On Nasal O2. No: SOB Gastrointestinal: Yes: Soft, Abdomen, Obese, Distention (tympanic), Tenderness ( RUQ, epigastric some, no R/G) Extremities: No: Cool, Cyanosis Integumentary: Yes: Incision (midline w/abhay). No: Jaundice, Rash Wound/Incision: Yes: Clean/Dry, Well Approximated, Abhay Intact, Open to air Neurological: Yes: Alert, Oriented Labs: CBC, BMP 11/29/18 05:30 11/30/18 05:30 Mg 2.1 - ....Imaging Cat Scan: Report Reviewed (head - no acute findings) Problem List - Problems (1) Intestinal adhesions with partial obstruction Assessment/Plan: POD10 s/p extensive lysis of adhesions and RUQ incisional hernia repair s/p likely hepaticojejunostomy in past with intestinal reconstruction - with dilated/stagnant loop of anastomotic area had small enterotomy repaired in proximal SB with small yellow fluid leakage, minimal contamination doing well from postop standpoint incision c/d/i with abhay po pain meds w/morphine as last line breakthrough trend labs, replete lytes prn fluids per renal tolerating diabetic soft diet will add colace - may stop if stools remain loose or become diarrheal will add simethicone - pt with gaseous distention to percussion would resume rest of home meds as indicated (diabetic, gout, statin) ok to start eliquis from surgical perspective discussed with Dr. Orville LOYOLA to chair and ambulate with assist as often as able possible short term rehab at discharge Code(s): K56.51 - INTESTINAL ADHESIONS [BANDS], WITH PARTIAL OBSTRUCTION (2) Incisional hernia, without obstruction or gangrene Code(s): K43.2 - INCISIONAL HERNIA WITHOUT OBSTRUCTION OR GANGRENE (3) Hypertension Assessment/Plan: meds per cardio, discussed with Dr. Jacinto well-controlled Code(s): I10 - ESSENTIAL (PRIMARY) HYPERTENSION Qualifiers: Hypertension type: essential hypertension Qualified Code(s): I10 - Essential (primary) hypertension (4) Diabetes mellitus type 2 in obese Assessment/Plan: maintain glucose control FS with SSI coveraqe A1C noted high sugars high - would resume home diabetic regimen metformin stopped by medicine insulin regimen deferred to medicine - pt reports using 50 units lantus nightly before dinner Code(s): E11.69 - TYPE 2 DIABETES MELLITUS WITH OTHER SPECIFIED COMPLICATION; E66.9 - OBESITY, UNSPECIFIED (5) S/P ureteral stent placement Assessment/Plan: urology following renal ultrasound done stent management per uro - pt may need laser lithotripsy with stent removal timing? would discuss prior to initiating anticoagulation Code(s): Z96.0 - PRESENCE OF UROGENITAL IMPLANTS (6) Gout Assessment/Plan: home med resumed Code(s): M10.9 - GOUT, UNSPECIFIED Qualifiers: Gout site: toe Gout etiology: unspecified cause Chronicity: unspecified Laterality: unspecified laterality Qualified Code(s): M10.9 - Gout, unspecified (7) CKD (chronic kidney disease) stage 3, GFR 30-59 ml/min Assessment/Plan: nephrology following fluids per them BUN/Cr up from baseline monitor UOP, I/Os closely Code(s): N18.3 - CHRONIC KIDNEY DISEASE, STAGE 3 (MODERATE)
[2018-11-30 19:41] LABS: EPI CELLS 2.5 /HPF (0-5); URINE APPEARANCE CLOUDY; URINE BACTERIA 10.8 /hpf (NEGATIVE); URINE BILIRUBIN NEGATIVE (NEGATIVE); URINE CASTS 22 /hpf (0-8); URINE COLOR YELLOW; URINE GLUCOSE (UA) NEGATIVE (NEGATIVE); URINE KETONE NEGATIVE (NEGATIVE); URINE LEUK ESTERASE 3+ (NEGATIVE); URINE NITRITE NEGATIVE (NEGATIVE); URINE PROTEIN 1+ (NEGATIVE); URINE UROBILINOGEN 0.2 mg/dL (0.2-1.0); URINE WBC 220 /hpf (0-5)
[2018-11-30 20:09] LABS: YEAST FEW (NEGATIVE)
[2018-11-30] MEDS: ATORVASTATIN CA 10 MG TABLET (FP) PO SCH (22:56)
[2018-11-30] MEDS: DOCUSATE SODIUM 100 MG CAPSULE (FP) PO SCH (22:56)
[2018-12-01] MEDS ORDERED: dilTIAZem HCL 30 MG TABLET (FP) ONE ×4 (01:27→18:15)
[2018-12-01] MEDS ORDERED: dilTIAZem HCL 60 MG TABLET (FP) ONE ×4 (01:27→18:15)
[2018-12-01] MEDS: DILTIAZEM 60 MG, DILTIAZEM 30 MG PO SCH ×4 (01:36→18:18)
[2018-12-01] MEDS: oxyCODONE HCL 5 MG TABLET PO PRN ×3 (01:38→22:39)
[2018-12-01] MEDS: HEPARIN NA (PORCINE) 5,000 UNITS/ML 1ML VIAL SQ SCH (05:49)
[2018-12-01] MEDS: ACETAMINOPHEN 325 MG TABLET (FP) PO PRN ×3 (05:49→22:38)
[2018-12-01] MEDS: INSULIN SLIDING SCALE (NOVOLOG) 1 VIAL SQ SCH ×4 (06:08→22:45)
[2018-12-01 06:45] LABS: BASO % 0.3 % (0-2.0); EOS % 1.4 % (0-4.5); HEMATOCRIT 22.2 % (32.4-45.2); HEMOGLOBIN 7.2 GM/dL (10.7-15.3); LYMPH % 8.9 % (8-40); MCH 25.6 pg (25.7-33.7); MCHC 32.4 g/dl (32.0-36.0); MEAN PLT VOLUME 9.1 fl (7.5-11.1); NEUT % 81.4 % (42.8-82.8); PLATELET COUNT 349 K/MM3 (134-434); RBC 2.82 M/mm3 (3.60-5.2); RDW 19.6 % (11.6-15.6); WHITE BLOOD COUNT 11.5 K/mm3 (4.0-10.0)
[2018-12-01 07:06] LABS: ALBUMIN 1.7 g/dl (3.4-5.0); ALK PHOS 78 U/L (45-117); ANION GAP 5 MMOL/L (8-16); BILIRUBIN,TOTAL 0.4 mg/dL (0.2-1); BLOOD UREA NITROGEN 33 mg/dL (7-18); CALCIUM 7.6 mg/dL (8.5-10.1); CHLORIDE 106 mmol/L (98-107); CO2 25 mmol/L (21-32); CREATININE 1.6 mg/dL (0.55-1.3); GLUCOSE,RANDOM 260 mg/dL (74-106); SGOT/AST 10 U/L (15-37); SGPT/ALT 6 U/L (13-61); SODIUM 135 mmol/L (136-145); TOT PROT 5.8 g/dl (6.4-8.2)
[2018-12-01] MEDS ORDERED: PT OWN MED DRAWER 7, Y5N ONE (10:35)
[2018-12-01] MEDS: APIXABAN 5 MG TABLET PO SCH ×2 (10:41→22:38)
[2018-12-01] MEDS: DOCUSATE SODIUM 100 MG CAPSULE (FP) PO SCH ×2 (10:41→22:45)
[2018-12-01] MEDS: ALLOPURINOL 100 MG TABLET (FP) PO SCH (10:41)
--- NOTE | 2018-12-01 11:05 | PN ---
Progress Note (short form) - Note Progress Note: Renal follow up for CHACHA Pt seen and examined at the bedside no acute complaints did not sleep well last night no sob, cp, abd pain able to take oral diet on IVF Vital Signs Temperature 98.2 F 12/01/18 05:57 Pulse Rate 64 12/01/18 09:20 Respiratory Rate 20 12/01/18 09:20 Blood Pressure 129/60 12/01/18 09:20 O2 Sat by Pulse Oximetry (%) 98 11/30/18 21:00 Intake & Output 11/28/18 11/29/18 11/30/18 12/01/18 23:59 23:59 23:59 23:59 Intake Total 2355 3498 2103 581 Output Total 200 500 400 Balance 2155 2998 1703 581 Weight 99.337 kg NAD awake and alert neck supple, no JVD RRR CTA soft NT/ND no LE edema, clubbing or edema CBC, BMP 12/01/18 05:30 12/01/18 05:30 Current Medications Acetaminophen (Tylenol -) 650 mg PO Q6H PRN PRN Reason: Pain Level 4 - 10 Last Admin: 12/01/18 05:49 Dose: 650 mg Allopurinol (Zyloprim -) 100 mg PO DAILY [facility] Last Admin: 12/01/18 10:41 Dose: 100 mg Apixaban (Eliquis -) 5 mg PO BID [facility] Last Admin: 12/01/18 10:41 Dose: 5 mg Atorvastatin Calcium (Lipitor -) 10 mg PO HS [facility] Last Admin: 11/30/18 22:56 Dose: 10 mg Diltiazem HCl (Cardizem Injection -) 10 mg IVPUSH Q4H PRN PRN Reason: TACHYCARDIA Last Admin: 11/26/18 17:37 Dose: 10 mg Diltiazem HCl 60 mg/ Diltiazem (HCl 30 mg) 90 mg PO Q6HPO [facility] Last Admin: 12/01/18 05:50 Dose: 90 mg Diphenhydramine HCl (Benadryl Injection -) 25 mg IVPB Q6H PRN PRN Reason: ITCHING Docusate Sodium (Colace -) 100 mg PO BID [facility] Last Admin: 12/01/18 10:41 Dose: 100 mg Insulin Aspart (Novolog Vial Sliding Scale -) 1 vial SQ ACHS [facility]; Protocol Last Admin: 12/01/18 06:08 Dose: 4 units Morphine Sulfate (Morphine Sulfate) 2 mg IVPUSH Q3H PRN PRN Reason: Pain Level 8 - 10 3rd/BRKTHRU Last Admin: 11/30/18 20:47 Dose: 2 mg Ondansetron HCl (Zofran Injection) 4 mg IVPUSH Q4H PRN PRN Reason: NAUSEA AND/OR VOMITING Last Admin: 11/25/18 06:39 Dose: 4 mg Oxycodone HCl (Roxicodone -) 5 mg PO Q4H PRN PRN Reason: Pain Level 6-10 BREAKTHROUGH Last Admin: 12/01/18 05:50 Dose: 5 mg Oxycodone HCl (Roxicodone -) 10 mg PO Q6H PRN PRN Reason: Pain Level 8 - 10 BREAKTHROUGH Propranolol HCl (Inderal La -) 60 mg PO DAILY [facility] Last Admin: 12/01/18 10:41 Dose: 60 mg Simethicone (Mylicon -) 80 mg PO Q6H PRN PRN Reason: GAS 72 year old woman with hx of CKD, Nephrolithiasis, DM who presented with Abd pain secondary to SBO s/p surgical intervention with CHACHA. #Recurrent CHACHA Renal function improving today, BP stable can hold IVF as pt with LE edema and mild rales would hold diuretics if pt stable can give IV lasix if any respiratory distress trend renal function and electrolytes Thank you Ethan Ram DO
--- NOTE | 2018-12-01 11:15 | PN ---
Progress Note (short form) - Note Progress Note: s: no cp sob palps dizzy o: Vital Signs Period Temp Pulse Resp BP Sys/Pascual Pulse Ox Last 24 Hr 98.2 F-99 F 59-74 18-20 123-140/50-72 98 Constitutional: Yes: Well Nourished, No Distress, Calm Eyes: Yes: Conjunctiva Clear Respiratory: Yes: Regular, CTA Bilaterally Gastrointestinal: Yes: Tenderness Cardiovascular: Yes: irreg JVD: No Heart Sounds: Yes: S1, S2 Murmur: No: Systolic Murmur Extremities: No: Cold Edema: No Peripheral Pulses: 2+ Left Doralis Pedis, 2+ Right Dorsalis Pedis Integumentary: No: Jaundice Neurological: Yes: Alert, Oriented Psychiatric: No: Agitated Current Medications Generic Name Dose Route Start Last Admin Trade Name Freq PRN Reason Stop Dose Admin Acetaminophen 650 mg 11/29/18 11:22 12/01/18 05:49 Tylenol - PO 650 mg Q6H PRN Administration Pain Level 4 - 10 Allopurinol 100 mg 11/30/18 10:00 12/01/18 10:41 Zyloprim - PO 100 mg DAILY [facility] Administration Apixaban 5 mg 12/01/18 10:00 12/01/18 10:41 Eliquis - PO 5 mg BID [facility] Administration Atorvastatin Calcium 10 mg 11/29/18 22:00 11/30/18 22:56 Lipitor - PO 10 mg HS [facility] Administration Diltiazem HCl 10 mg 11/22/18 17:18 11/26/18 17:37 Cardizem Injection - IVPUSH 10 mg Q4H PRN Administration TACHYCARDIA Diltiazem HCl 60 mg/ Diltiazem 90 mg 11/30/18 12:00 12/01/18 05:50 HCl 30 mg PO 90 mg Q6HPO [facility] Administration Diphenhydramine HCl 25 mg 11/26/18 17:12 Benadryl Injection - IVPB Q6H PRN ITCH[facility] Docusate Sodium 100 mg 11/30/18 22:00 12/01/18 10:41 Colace - PO 100 mg BID [facility] Administration Insulin Aspart 1 vial 11/20/18 16:30 12/01/18 06:08 Novolog Vial Sliding Scale - SQ 4 units ACHS [facility] Administration Protocol Morphine Sulfate 2 mg 11/29/18 11:18 11/30/18 20:47 Morphine Sulfate IVPUSH 2 mg Q3H PRN Administration Pain Level 8 - 10 3rd/BRKTHRU Ondansetron HCl 4 mg 11/20/18 12:08 11/25/18 06:39 Zofran Injection IVPUSH 4 mg Q4H PRN Administration NAUSEA AND/OR VOMITING Oxycodone HCl 5 mg 11/29/18 11:15 12/01/18 05:50 Roxicodone - PO 5 mg Q4H PRN Administration Pain Level 6-10 BREAKTHROUGH Oxycodone HCl 10 mg 11/29/18 11:15 Roxicodone - PO Q6H PRN Pain Level 8 - 10 BREAKTHROUGH Propranolol HCl 60 mg 11/30/18 10:00 12/01/18 10:41 Inderal La - PO 60 mg DAILY [facility] Administration Simethicone 80 mg 11/30/18 18:06 Mylicon - PO Q6H PRN GAS CBC, BMP 12/01/18 05:30 12/01/18 05:30 Assessment/Plan EKG: initial sinus, LVH, first deg AVB EKG 11/22 afib with RVR rate 135 bpm echo 11/2016 LV mildly dilated, nl LV function, sigmoid septum, RV nl, LA severely dilated, RA mildly enlarged, mild MR, mild TR, at least mild pulm HTN, RVSP at least 42 mmHg tele: afib , rate controlled afib - in post op setting after ex lap, PAN - 11/25: converted spontaneously now to sinus - 11/26: overnight converted back to afib with RVR, dilt gtt was started, initially poor IV access now has been running, no improvement with additional lopressor 5 mg IV this morning. replete K and Mg, digoxin 0.125 mg IV x 1 ordered, cont dilt gtt - 11/27: started diltiazem 60 mg PO Q6H, increase to 90 mg Q6H, start propranolol 20 mg Q6H, uptitrate as tolerated, wean dilt gtt as tolerated -11/28-7: rate controlled on po meds. eliquis started. SBO s/p ex lap, PAN - doing well post op from surgical pov HTN -will hold clonidine for now as bp on lower side and pt requiring ivfs for chacha. cont dilt/inderal. pulm HTN, chronic diastolic HF - mild to mod, likely 2/2 diastolic CHF - appears euvolemic DM - manage per primary HLD - holding statin CHACHA on CKD -improving with ivfs -renal following, bp control as above.
[2018-12-01] MEDS ORDERED: FUROSEMIDE 40 MG/4 ML INJECTABLE VIAL IVPUSH SCH (11:50)
--- NOTE | 2018-12-01 11:51 | PN ---
Progress Note, Physician - Current Medication List Current Medications: Active Medications Acetaminophen (Tylenol -) 650 mg PO Q6H PRN PRN Reason: Pain Level 4 - 10 Last Admin: 12/01/18 05:49 Dose: 650 mg Allopurinol (Zyloprim -) 100 mg PO DAILY [facility] Last Admin: 12/01/18 10:41 Dose: 100 mg Apixaban (Eliquis -) 5 mg PO BID [facility] Last Admin: 12/01/18 10:41 Dose: 5 mg Atorvastatin Calcium (Lipitor -) 10 mg PO HS [facility] Last Admin: 11/30/18 22:56 Dose: 10 mg Diltiazem HCl (Cardizem Injection -) 10 mg IVPUSH Q4H PRN PRN Reason: TACHYCARDIA Last Admin: 11/26/18 17:37 Dose: 10 mg Diltiazem HCl 60 mg/ Diltiazem (HCl 30 mg) 90 mg PO Q6HPO [facility] Last Admin: 12/01/18 05:50 Dose: 90 mg Diphenhydramine HCl (Benadryl Injection -) 25 mg IVPB Q6H PRN PRN Reason: ITCHING Docusate Sodium (Colace -) 100 mg PO BID [facility] Last Admin: 12/01/18 10:41 Dose: 100 mg Insulin Aspart (Novolog Vial Sliding Scale -) 1 vial SQ [facility]; Protocol Last Admin: 12/01/18 06:08 Dose: 4 units Morphine Sulfate (Morphine Sulfate) 2 mg IVPUSH Q3H PRN PRN Reason: Pain Level 8 - 10 3rd/BRKTHRU Last Admin: 11/30/18 20:47 Dose: 2 mg Ondansetron HCl (Zofran Injection) 4 mg IVPUSH Q4H PRN PRN Reason: NAUSEA AND/OR VOMITING Last Admin: 11/25/18 06:39 Dose: 4 mg Oxycodone HCl (Roxicodone -) 5 mg PO Q4H PRN PRN Reason: Pain Level 6-10 BREAKTHROUGH Last Admin: 12/01/18 05:50 Dose: 5 mg Oxycodone HCl (Roxicodone -) 10 mg PO Q6H PRN PRN Reason: Pain Level 8 - 10 BREAKTHROUGH Propranolol HCl (Inderal La -) 60 mg PO DAILY [facility] Last Admin: 12/01/18 10:41 Dose: 60 mg Simethicone (Mylicon -) 80 mg PO Q6H PRN PRN Reason: GAS - Objective Vital Signs: Vital Signs Temperature 98.2 F 12/01/18 05:57 Pulse Rate 64 12/01/18 09:20 Respiratory Rate 20 12/01/18 09:20 Blood Pressure 129/60 12/01/18 09:20 O2 Sat by Pulse Oximetry (%) 98 11/30/18 21:00 Cardiovascular: Yes: S1, S2 Respiratory: Yes: Regular, CTA Bilaterally Gastrointestinal: Yes: Normal Bowel Sounds, Soft, Tenderness Labs: CBC, BMP 12/01/18 05:30 12/01/18 05:30 INR, PTT INR 1.19 (0.82-1.09) 11/16/18 14:35 Problem List - Problems (1) Small bowel obstruction Code(s): K56.609 - UNSP INTESTNL OBST, UNSP TO PARTIAL VERSUS COMPLETE OBST (2) Atrial fibrillation with RVR Code(s): I48.91 - UNSPECIFIED ATRIAL FIBRILLATION (3) Head ache Code(s): R51 - HEADACHE (4) Diabetes mellitus type 2 in obese Code(s): E11.69 - TYPE 2 DIABETES MELLITUS WITH OTHER SPECIFIED COMPLICATION; E66.9 - OBESITY, UNSPECIFIED (5) Hypertension Code(s): I10 - ESSENTIAL (PRIMARY) HYPERTENSION Qualifiers: Hypertension type: essential hypertension Qualified Code(s): I10 - Essential (primary) hypertension (6) Hydronephrosis, left Code(s): N13.30 - UNSPECIFIED HYDRONEPHROSIS Assessment/Plan - Problems (1) Headache Assessment/Plan: ct head nad neurology noted Code(s): R51 - HEADACHE (2) Abdominal pain Assessment/Plan: Note: Operative Date: 11/20/18 Pre-Operative Diagnosis: small bowel obstruction, incisional hernia Operation: laparotomy with extensive lysis of adhesions (2 hours), suture repair of right upper quadrant incisional hernia iv zosyn Findings: mesh (Goretex?) in midline - partially divided, left in situ; matted loops of small bowel in right abdomen, incisional hernia RUQ and right lateral abdomen, evidence of previous Jackelin-en-Y bowel reconstruction with dilation of stagnant loop; tiny enterotomy made in proximal SB in RUQ, repaired with sutures with minimal leakage; no resection performed Post-Operative Diagnosis: Other (same as preop with stagnant Jackelin-en-Y bowel loop in RUQ, extensive intestinal adhesions) Surgeon: Neal Rodney Research And Development Scientist: Jace Piña Anesthesiologist/FLATWORK FOLDER: Chuckie Nguyen Anesthesia: General, Local (20ML 0.5% marcaine) Specimens Removed: no resection Estimated Blood Loss (mls): 100 Drains & Tubes with Location: preop [place] NGT; Salas placed and left Drains, Volume Out (mls): 500 (UOP) Fluid Volume Replaced (mls): 1,800 (crystalloid) Operative Report Dictated: Yes dvt ppx ng tube to suction- removed pain control iv abx zosyn full liquid diet -advance per surgery Code(s): R10.9 - UNSPECIFIED ABDOMINAL PAIN Qualifiers: Abdominal location: unspecified location Qualified Code(s): R10.9 - Unspecified abdominal pain (3) Atrial fibrillation with RVR Assessment/Plan: started on propanolol continue cardizem Code(s): I48.91 - UNSPECIFIED ATRIAL FIBRILLATION (4) S/P ureteral stent placement Assessment/Plan: seen by urology needs laser lithotripsy as an outpatient Code(s): Z96.0 - PRESENCE OF UROGENITAL IMPLANTS (5) Diabetes mellitus type 2 in obese Assessment/Plan: bgm sliding scale currently NPO with ng tube dc metformin Code(s): E11.69 - TYPE 2 DIABETES MELLITUS WITH OTHER SPECIFIED COMPLICATION; E66.9 - OBESITY, UNSPECIFIED (6) Renal insuficiency Assessment/Plan: cr rising monitor renal on case may need imaging (7) Anemia Assessment/Plan: Transfuse surgical follow up dc planning Physical Therapy--may need snf
[2018-12-01] MEDS: MORPHINE SULFATE 2 MG/ML VIAL IVPUSH PRN (13:20)
[2018-12-01] MEDS: SIMETHICONE 80 MG TAB.CHEW (FP) PO PRN (13:24)
[2018-12-01] MEDS: ATORVASTATIN CA 10 MG TABLET (FP) PO SCH (22:38)
[2018-12-02] MEDS ORDERED: dilTIAZem HCL 60 MG TABLET (FP) ONE ×4 (01:31→16:58)
[2018-12-02] MEDS ORDERED: dilTIAZem HCL 30 MG TABLET (FP) ONE ×4 (01:31→16:59)
[2018-12-02] MEDS: DILTIAZEM 60 MG, DILTIAZEM 30 MG PO SCH ×4 (01:32→17:56)
[2018-12-02] MEDS: ACETAMINOPHEN 325 MG TABLET (FP) PO PRN ×2 (05:31→12:53)
[2018-12-02] MEDS: INSULIN SLIDING SCALE (NOVOLOG) 1 VIAL SQ SCH ×4 (06:03→21:39)
[2018-12-02 06:41] LABS: BASO % 1.3 % (0-2.0); EOS % 2.2 % (0-4.5); HEMATOCRIT 24.3 % (32.4-45.2); LYMPH % 10.5 % (8-40); MCH 26.2 pg (25.7-33.7); MCHC 32.9 g/dl (32.0-36.0); MEAN CELL VOLUME 79.5 fl (80-96); MEAN PLT VOLUME 9.1 fl (7.5-11.1); MONO % 10.1 % (3.8-10.2); NEUT % 75.9 % (42.8-82.8); PLATELET COUNT 486 K/MM3 (134-434); RBC 3.06 M/mm3 (3.60-5.2); RDW 19.8 % (11.6-15.6); WHITE BLOOD COUNT 12.9 K/mm3 (4.0-10.0)
[2018-12-02 07:17] LABS: ALBUMIN 1.8 g/dl (3.4-5.0); ALK PHOS 89 U/L (45-117); ANION GAP 8 MMOL/L (8-16); BILIRUBIN,TOTAL 1.4 mg/dL (0.2-1); BLOOD UREA NITROGEN 26 mg/dL (7-18); CALCIUM 7.9 mg/dL (8.5-10.1); CHLORIDE 106 mmol/L (98-107); CO2 26 mmol/L (21-32); CREATININE 1.4 mg/dL (0.55-1.3); GLUCOSE,RANDOM 208 mg/dL (74-106); MAGNESIUM 1.4 mg/dL (1.8-2.4); PHOSPHOROUS 3.3 mg/dL (2.5-4.9); SGOT/AST 10 U/L (15-37); SGPT/ALT 7 U/L (13-61); SODIUM 140 mmol/L (136-145)
[2018-12-02] MEDS: oxyCODONE HCL 5 MG TABLET PO PRN ×2 (10:09→14:17)
[2018-12-02] MEDS: ALLOPURINOL 100 MG TABLET (FP) PO SCH (10:12)
[2018-12-02] MEDS: DOCUSATE SODIUM 100 MG CAPSULE (FP) PO SCH ×2 (10:12→21:39)
[2018-12-02] MEDS: APIXABAN 5 MG TABLET PO SCH ×2 (10:12→21:39)
[2018-12-02 10:47] LABS: ANISOCYTOSIS 1+; MACROCYTOSIS 0; PLATELET ESTIMATE NORMAL; TARGET CELLS 1+
--- NOTE | 2018-12-02 11:16 | PN ---
Progress Note, Physician Chief Complaint: abd pain History of Present Illness: abd pain started again yest, ongoing today no cp no sob no palpit no syncope - Current Medication List Current Medications: Active Medications Acetaminophen (Tylenol -) 650 mg PO Q6H PRN PRN Reason: Pain Level 4 - 10 Last Admin: 12/02/18 05:31 Dose: 650 mg Allopurinol (Zyloprim -) 100 mg PO DAILY [facility] Last Admin: 12/02/18 10:12 Dose: 100 mg Apixaban (Eliquis -) 5 mg PO BID [facility] Last Admin: 12/02/18 10:12 Dose: 5 mg Atorvastatin Calcium (Lipitor -) 10 mg PO HS [facility] Last Admin: 12/01/18 22:38 Dose: 10 mg Diltiazem HCl (Cardizem Injection -) 10 mg IVPUSH Q4H PRN PRN Reason: TACHYCARDIA Last Admin: 11/26/18 17:37 Dose: 10 mg Diltiazem HCl 60 mg/ Diltiazem (HCl 30 mg) 90 mg PO Q6HPO [facility] Last Admin: 12/02/18 05:31 Dose: 90 mg Diphenhydramine HCl (Benadryl Injection -) 25 mg IVPB Q6H PRN PRN Reason: ITCHING Docusate Sodium (Colace -) 100 mg PO BID [facility] Last Admin: 12/02/18 10:12 Dose: 100 mg Furosemide (Lasix Injection -) 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 [facility] Last Admin: 12/01/18 13:30 Dose: 40 mg Insulin Aspart (Novolog Vial Sliding Scale -) 1 vial SQ [facility]; Protocol Last Admin: 12/02/18 06:03 Dose: 4 units Morphine Sulfate (Morphine Sulfate) 2 mg IVPUSH Q3H PRN PRN Reason: Pain Level 8 - 10 3rd/BRKTHRU Last Admin: 12/01/18 13:20 Dose: 2 mg Ondansetron HCl (Zofran Injection) 4 mg IVPUSH Q4H PRN PRN Reason: NAUSEA AND/OR VOMITING Last Admin: 11/25/18 06:39 Dose: 4 mg Oxycodone HCl (Roxicodone -) 5 mg PO Q4H PRN PRN Reason: Pain Level 6-10 BREAKTHROUGH Last Admin: 12/02/18 10:09 Dose: 5 mg Oxycodone HCl (Roxicodone -) 10 mg PO Q6H PRN PRN Reason: Pain Level 8 - 10 BREAKTHROUGH Last Admin: 12/01/18 16:35 Dose: 10 mg Propranolol HCl (Inderal La -) 60 mg PO DAILY [facility] Last Admin: 12/01/18 10:41 Dose: 60 mg Simethicone (Mylicon -) 80 mg PO Q6H PRN PRN Reason: GAS Last Admin: 12/01/18 13:24 Dose: 80 mg - Objective Vital Signs: Vital Signs Temperature 98.2 F 12/02/18 06:00 Pulse Rate 64 12/02/18 06:00 Respiratory Rate 20 12/02/18 06:00 Blood Pressure 147/61 12/02/18 06:00 O2 Sat by Pulse Oximetry (%) 99 12/02/18 09:00 Constitutional: Yes: Well Nourished, No Distress, Calm Cardiovascular: Yes: Regular Rate and Rhythm, S1, S2. No: Gallop, Murmur Respiratory: Yes: Regular, CTA Bilaterally. No: Accessory Muscle Use, Rales, Wheezes Extremities: No: Cold Edema: No Neurological: Yes: Alert, Oriented Psychiatric: No: Agitated Labs: CBC, BMP 12/02/18 05:30 12/02/18 05:30 INR, PTT INR 1.19 (0.82-1.09) 11/16/18 14:35 Assessment/Plan EKG: initial sinus, LVH, first deg AVB EKG 11/22 afib with RVR rate 135 bpm echo 11/2016 LV mildly dilated, nl LV function, sigmoid septum, RV nl, LA severely dilated, RA mildly enlarged, mild MR, mild TR, at least mild pulm HTN, RVSP at least 42 mmHg tele: afib - in post op setting after ex lap, PAN - 11/25: converted spontaneously now to sinus - 11/26: overnight converted back to afib with RVR, dilt gtt was started, initially poor IV access now has been running, no improvement with additional lopressor 5 mg IV this morning. replete K and Mg, digoxin 0.125 mg IV x 1 ordered, cont dilt gtt - 11/27: started diltiazem 60 mg PO Q6H, increase to 90 mg Q6H, start propranolol 20 mg Q6H, uptitrate as tolerated, wean dilt gtt as tolerated -11/28-7: rate controlled on po meds. eliquis started. -12/02: back in sinus. same meds SBO s/p ex lap, PAN - doing well post op from surgical pov HTN -holding clonidine here, given titrating up AVN blockers for new afib -stable bp -observe trend pulm HTN, chronic diastolic HF - mild to mod, likely 2/2 diastolic CHF - appears euvolemic DM - manage per primary HLD - holding statin CHACHA on CKD -improving with ivfs -renal following, bp control as above.
--- NOTE | 2018-12-02 12:16 | PN ---
Progress Note (short form) - Note Progress Note: NEUROLOGY PROGRESS: Events reviewed and discussed with staff. Cardiology consult read and appreciated. No further reports of headache. C/O generalized abdominal pain, improved with use of narcotics. Now on Propanolol 60 mg ER for BP and migraine prophylaxis. Also started on Eliquis for new Afib. Has walked with walker with PT. WBC 12.9 H/H 8.8/27.7-> 8/24.3 CRP 1.9 -> 5.7 ESR 118 Urine WBC= [address] (reviewed): Mild atrophy. periventricular ischemic changes. BRIT: Obese. BP 130s/70s. V13x-98l. On O2 via N/C. Nam noted to R abdominal wall. Neuro: Awake, Alert, Cooperative. Mild OMS may be present. EOM intact. Full sr appreciated. + glabella Motor: Strength normal. Reflexes normal. Feels pinch in all four's Impression: 1. Mild B/L Cerebral dysfunction (OMS, chronic) 2. New onset headache - resolving on Propranolol, supporting a migrainous etiology 3. Toxic-Metabolic Encephalopathy (?UTI) 4. New-onset AFib Suggest: Low threshold to treat UTI as common post-op complication Continue Propranolol 60 mg ER po qd for migraine prophylaxis and BP control. Continue Eliquis 5mg BID for AC (monitor H/H) Continue OOB for mobilization and PT training with walker If pulse allows, would consider addition of donepezil 5 mg po qam Thank you very much, Ham Tovar MD
--- NOTE | 2018-12-02 12:17 | PN ---
Progress Note (short form) - Note Progress Note: Renal follow up for CHACHA Pt seen and examined at the bedside complains of abd pain no sob, cp, N/V Vital Signs Temperature 98.2 F 12/02/18 06:00 Pulse Rate 64 12/02/18 06:00 Respiratory Rate 20 12/02/18 06:00 Blood Pressure 147/61 12/02/18 06:00 O2 Sat by Pulse Oximetry (%) 99 12/02/18 09:00 Intake & Output 11/29/18 11/30/18 12/01/18 12/02/18 23:59 23:59 23:59 23:59 Intake Total 3498 2103 591 0 Output Total 500 400 Balance 2998 1703 591 0 distress from abd pain neck supple, no JVD RRR CTA + abd tenderness no LE edema, clubbing or edema CBC, BMP 12/02/18 05:30 12/02/18 05:30 Current Medications Acetaminophen (Tylenol -) 650 mg PO Q6H PRN PRN Reason: Pain Level 4 - 10 Last Admin: 12/02/18 05:31 Dose: 650 mg Allopurinol (Zyloprim -) 100 mg PO DAILY [facility] Last Admin: 12/02/18 10:12 Dose: 100 mg Apixaban (Eliquis -) 5 mg PO BID [facility] Last Admin: 12/02/18 10:12 Dose: 5 mg Atorvastatin Calcium (Lipitor -) 10 mg PO HS [facility] Last Admin: 12/01/18 22:38 Dose: 10 mg Diltiazem HCl (Cardizem Injection -) 10 mg IVPUSH Q4H PRN PRN Reason: TACHYCARDIA Last Admin: 11/26/18 17:37 Dose: 10 mg Diltiazem HCl 60 mg/ Diltiazem (HCl 30 mg) 90 mg PO Q6HPO [facility] Last Admin: 12/02/18 05:31 Dose: 90 mg Diphenhydramine HCl (Benadryl Injection -) 25 mg IVPB Q6H PRN PRN Reason: ITCHING Docusate Sodium (Colace -) 100 mg PO BID [facility] Last Admin: 12/02/18 10:12 Dose: 100 mg Furosemide (Lasix Injection -) 40 mg IVPUSH [employer]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 [facility] Last Admin: 12/01/18 13:30 Dose: 40 mg Insulin Aspart (Novolog Vial Sliding Scale -) 1 vial SQ [facility]; Protocol Last Admin: 12/02/18 06:03 Dose: 4 units Ondansetron HCl (Zofran Injection) 4 mg IVPUSH Q4H PRN PRN Reason: NAUSEA AND/OR VOMITING Last Admin: 11/25/18 06:39 Dose: 4 mg Oxycodone HCl (Roxicodone -) 5 mg PO Q4H PRN PRN Reason: Pain Level 6-10 BREAKTHROUGH Last Admin: 12/02/18 10:09 Dose: 5 mg Oxycodone HCl (Roxicodone -) 10 mg PO Q6H PRN PRN Reason: Pain Level 8 - 10 BREAKTHROUGH Last Admin: 12/01/18 16:35 Dose: 10 mg Propranolol HCl (Inderal La -) 60 mg PO DAILY [facility] Last Admin: 12/01/18 10:41 Dose: 60 mg Simethicone (Mylicon -) 80 mg PO Q6H PRN PRN Reason: GAS Last Admin: 12/01/18 13:24 Dose: 80 mg 72 year old woman with hx of CKD, Nephrolithiasis, DM who presented with Abd pain secondary to SBO s/p surgical intervention with CHACHA. #Recurrent CHACHA #SBO s/p OR renal function now improving continue to trend BUN/Cr and electrolytes Lasix as needed surgery follow up regarding pain Thank you Ethan Ram DO
[2018-12-02] MEDS ORDERED: PT OWN MED DRAWER 7, Y5N ONE (13:01)
[2018-12-02] MEDS: SIMETHICONE 80 MG TAB.CHEW (FP) PO PRN ×2 (14:07→21:43)
--- NOTE | 2018-12-02 17:18 | PN ---
Progress Note, Physician History of Present Illness: POD12 s/p extensive lysis of intestinal adhesions for developing SBO, with suture repair of small RUQ incisional hernia from inside, with findings of previous intestinal reconstruction, likely hepaticojejunostomy, done years ago after post-cholecystectomy complications per pt. Pt postop had new onset of afib with RVR and was transferred to telemetry, treated with cardizem drip and prn's - now rate controlled on po meds. She is tolerating soft diabetic diet, but has been feeling full quickly, bloated and with abdominal pain, so has eaten very lightly today. She is seen and examined sitting in solarium, brother present. She is voiding and passing gas, had last soft, semi-solid stool yesterday. Ambulating with walker. She states she slept well overnight, but this morning had abdominal pain again, and has gotten both tylenol and oxycodone for it. Feels like gas pains to her at times. She took simethicone around 2pm today. - Current Medication List Current Medications: Active Medications Acetaminophen (Tylenol -) 650 mg PO Q6H PRN PRN Reason: Pain Level 4 - 10 Last Admin: 12/02/18 12:53 Dose: 650 mg Allopurinol (Zyloprim -) 100 mg PO DAILY [facility] Last Admin: 12/02/18 10:12 Dose: 100 mg Apixaban (Eliquis -) 5 mg PO BID [facility] Last Admin: 12/02/18 10:12 Dose: 5 mg Atorvastatin Calcium (Lipitor -) 10 mg PO HS [facility] Last Admin: 12/01/18 22:38 Dose: 10 mg Diltiazem HCl (Cardizem Injection -) 10 mg IVPUSH Q4H PRN PRN Reason: TACHYCARDIA Last Admin: 11/26/18 17:37 Dose: 10 mg Diltiazem HCl 60 mg/ Diltiazem (HCl 30 mg) 90 mg PO Q6HPO [facility] Last Admin: 12/02/18 13:00 Dose: 90 mg Diphenhydramine HCl (Benadryl Injection -) 25 mg IVPB Q6H PRN PRN Reason: ITCHING Docusate Sodium (Colace -) 100 mg PO BID [facility] Last Admin: 12/02/18 10:12 Dose: 100 mg Insulin Aspart (Novolog Vial Sliding Scale -) 1 vial SQ [facility]; Protocol Last Admin: 12/02/18 12:00 Dose: 6 units Metoclopramide HCl (Reglan Injection -) 10 mg IVPUSH ONCE ONE Stop: 12/02/18 16:47 Ondansetron HCl (Zofran Injection) 4 mg IVPUSH Q4H PRN PRN Reason: NAUSEA AND/OR VOMITING Last Admin: 11/25/18 06:39 Dose: 4 mg Oxycodone HCl (Roxicodone -) 5 mg PO Q4H PRN PRN Reason: Pain Level 6-10 BREAKTHROUGH Last Admin: 12/02/18 14:17 Dose: 5 mg Oxycodone HCl (Roxicodone -) 10 mg PO Q6H PRN PRN Reason: Pain Level 8 - 10 BREAKTHROUGH Last Admin: 12/01/18 16:35 Dose: 10 mg Propranolol HCl (Inderal La -) 60 mg PO DAILY [facility] Last Admin: 12/02/18 11:00 Dose: 60 mg Simethicone (Mylicon -) 80 mg PO Q6H PRN PRN Reason: GAS Last Admin: 12/02/18 14:07 Dose: 80 mg - Objective Vital Signs: Vital Signs Temperature 97.8 F 12/02/18 10:00 Pulse Rate 65 12/02/18 10:00 Respiratory Rate 20 12/02/18 10:00 Blood Pressure 153/77 12/02/18 10:00 O2 Sat by Pulse Oximetry (%) 99 12/02/18 09:00 Intake & Output 12/02/18 12/02/18 12/02/18 07:59 15:59 23:59 Intake Total 0 Balance 0 Intake: IV 0 Normal Saline - 1,000 ml 0 @ 83 mls/hr IV ASDIR [facility] Rx#:[id number] Other: Voiding Method Toilet Constitutional: Yes: No Distress, Calm, Obese Eyes: Yes: Conjunctiva Clear, EOM Intact HENT: Yes: Atraumatic, Normocephalic Gastrointestinal: Yes: Normal Bowel Sounds, Soft, Abdomen, Obese, Distention ( with tympany, mostly upper half), Tenderness (somewhat in LUQ, RUQ, epigastric, less LLQ, minimal to none RLQ) Extremities: No: Cool, Cyanosis Integumentary: Yes: Incision (midline w/abhay). No: Jaundice, Rash Wound/Incision: Yes: Clean/Dry, Well Approximated, Abhay Intact, Open to air Neurological: Yes: Alert, Oriented Labs: CBC, BMP 12/02/18 05:30 12/02/18 05:30 Mg 1.4 Problem List - Problems (1) Intestinal adhesions with partial obstruction Assessment/Plan: POD12 s/p extensive lysis of adhesions and RUQ incisional hernia repair s/p likely hepaticojejunostomy in past with intestinal reconstruction - with dilated/stagnant loop of anastomotic area had small enterotomy repaired in proximal SB with small yellow fluid leakage, minimal contamination stable postop tolerating diabetic soft diet but eating less with distention and pain will try a dose of reglan now, encouraged to use simethicone as able for now trend labs, replete lytes prn may consider imaging tomorrow, but ileus/distention could be related to electrolyte abnormalities? diabetic autonomic neuropathy? bowel reconstruction/ anatomy? narcotic use? may be difficult to relieve if functional and not mechanical.. po pain meds prn incision c/d/i with abhay fluids off per renal discussed with Debby LOYOLA to chair and ambulate with assist as often as able possible short term rehab at discharge Code(s): K56.51 - INTESTINAL ADHESIONS [BANDS], WITH PARTIAL OBSTRUCTION (2) Incisional hernia, without obstruction or gangrene Code(s): K43.2 - INCISIONAL HERNIA WITHOUT OBSTRUCTION OR GANGRENE (3) Hypertension Assessment/Plan: controlled on po meds Code(s): I10 - ESSENTIAL (PRIMARY) HYPERTENSION Qualifiers: Hypertension type: essential hypertension Qualified Code(s): I10 - Essential (primary) hypertension (4) Diabetes mellitus type 2 in obese Assessment/Plan: maintain glucose control FS with SSI coveraqe A1C noted high sugars high - would resume home diabetic regimen metformin stopped by medicine insulin regimen deferred to medicine - pt reports using 50 units lantus nightly before dinner Code(s): E11.69 - TYPE 2 DIABETES MELLITUS WITH OTHER SPECIFIED COMPLICATION; E66.9 - OBESITY, UNSPECIFIED (5) S/P ureteral stent placement Assessment/Plan: urology following renal ultrasound done stent management per uro - pt may need laser lithotripsy with stent removal as outpatient, off anticoagulation Code(s): Z96.0 - PRESENCE OF UROGENITAL IMPLANTS (6) Gout Assessment/Plan: home med resumed Code(s): M10.9 - GOUT, UNSPECIFIED Qualifiers: Gout site: toe Gout etiology: unspecified cause Chronicity: unspecified Laterality: unspecified laterality Qualified Code(s): M10.9 - Gout, unspecified (7) CKD (chronic kidney disease) stage 3, GFR 30-59 ml/min Assessment/Plan: nephrology following fluids off BUN/Cr back down would monitor UOP strictly Code(s): N18.3 - CHRONIC KIDNEY DISEASE, STAGE 3 (MODERATE)
[2018-12-02] MEDS ORDERED: METOCLOPRAMIDE HCL INJECTION 10 MG/2 ML VIAL IVPUSH ONE (17:30)
[2018-12-02] MEDS ORDERED: MAGNESIUM SULF 50% (8.12 MEQ/2 ML-1 GM VIAL) IVPB ONE (17:30)
--- NOTE | 2018-12-02 17:39 | PN ---
Progress Note, Physician Chief Complaint: Abdominal pain SBP vs Cecal Volvulus History of Present Illness: Previous notes and events reviewed awake and alert NAD complain of abdominal pain denies chest pain or SOB - Current Medication List Current Medications: Active Medications Acetaminophen (Tylenol -) 650 mg PO Q6H PRN PRN Reason: Pain Level 4 - 10 Last Admin: 12/02/18 12:53 Dose: 650 mg Allopurinol (Zyloprim -) 100 mg PO DAILY [facility] Last Admin: 12/02/18 10:12 Dose: 100 mg Apixaban (Eliquis -) 5 mg PO BID [facility] Last Admin: 12/02/18 10:12 Dose: 5 mg Atorvastatin Calcium (Lipitor -) 10 mg PO HS [facility] Last Admin: 12/01/18 22:38 Dose: 10 mg Diltiazem HCl (Cardizem Injection -) 10 mg IVPUSH Q4H PRN PRN Reason: TACHYCARDIA Last Admin: 11/26/18 17:37 Dose: 10 mg Diltiazem HCl 60 mg/ Diltiazem (HCl 30 mg) 90 mg PO Q6HPO [facility] Last Admin: 12/02/18 13:00 Dose: 90 mg Diphenhydramine HCl (Benadryl Injection -) 25 mg IVPB Q6H PRN PRN Reason: ITCHING Docusate Sodium (Colace -) 100 mg PO BID [facility] Last Admin: 12/02/18 10:12 Dose: 100 mg Insulin Aspart (Novolog Vial Sliding Scale -) 1 vial SQ [facility]; Protocol Last Admin: 12/02/18 12:00 Dose: 6 units Ondansetron HCl (Zofran Injection) 4 mg IVPUSH Q4H PRN PRN Reason: NAUSEA AND/OR VOMITING Last Admin: 11/25/18 06:39 Dose: 4 mg Oxycodone HCl (Roxicodone -) 5 mg PO Q4H PRN PRN Reason: Pain Level 6-10 BREAKTHROUGH Last Admin: 12/02/18 14:17 Dose: 5 mg Oxycodone HCl (Roxicodone -) 10 mg PO Q6H PRN PRN Reason: Pain Level 8 - 10 BREAKTHROUGH Last Admin: 12/01/18 16:35 Dose: 10 mg Propranolol HCl (Inderal La -) 60 mg PO DAILY [facility] Last Admin: 12/02/18 11:00 Dose: 60 mg Simethicone (Mylicon -) 80 mg PO Q6H PRN PRN Reason: GAS Last Admin: 12/02/18 14:07 Dose: 80 mg - Objective Vital Signs: Vital Signs Temperature 97.8 F 12/02/18 10:00 Pulse Rate 65 12/02/18 10:00 Respiratory Rate 20 12/02/18 10:00 Blood Pressure 153/77 12/02/18 10:00 O2 Sat by Pulse Oximetry (%) 99 12/02/18 09:00 Constitutional: Yes: No Distress, Calm Eyes: Yes: Conjunctiva Clear HENT: Yes: Atraumatic Cardiovascular: Yes: Regular Rate and Rhythm Respiratory: Yes: Regular, CTA Bilaterally Gastrointestinal: Yes: Normal Bowel Sounds, Soft, Distention (mild) Musculoskeletal: Yes: Muscle Weakness Extremities: Yes: WNL Edema: No Wound/Incision: Yes: Nam Intact, Open to air Neurological: Yes: Alert, Oriented Psychiatric: Yes: Alert, Oriented Labs: CBC, BMP 12/02/18 05:30 12/02/18 05:30 INR, PTT INR 1.19 (0.82-1.09) 11/16/18 14:35 Problem List - Problems (1) Abdominal pain Assessment/Plan: - -Abdomen and Pelvic CT scan shows abnormal cecal position but no evidence of volvulus, abnormal ileal loops possibly representing enteritis -Meckel scan shows no scintigraphic evidence of Meckel diverticulum containing ectopic gastric mucosa -POD #12 laparatomy with extensive lysis of adhesion and suture repair of RUQ incisional hernia -pain management -tolerating PO intake -surgery on board -GI on board -zofran prn for nausea -continue with Simethicone -spoke with surgery if pain persist in AM will have imaging done Code(s): R10.9 - UNSPECIFIED ABDOMINAL PAIN Qualifiers: Abdominal location: unspecified location Qualified Code(s): R10.9 - Unspecified abdominal pain (2) CKD (chronic kidney disease) stage 3, GFR 30-59 ml/min Assessment/Plan: -improved -BUN/Cr 26/1.4 -monitor renal function daily -renal on board Code(s): N18.3 - CHRONIC KIDNEY DISEASE, STAGE 3 (MODERATE) (3) Diabetes mellitus type 2 in obese Assessment/Plan: -BGM ACHS -ISS -HgA1c 8.9% Code(s): E11.69 - TYPE 2 DIABETES MELLITUS WITH OTHER SPECIFIED COMPLICATION; E66.9 - OBESITY, UNSPECIFIED (4) Hypertension Assessment/Plan: -continue Propanolol -cardio on board Code(s): I10 - ESSENTIAL (PRIMARY) HYPERTENSION Qualifiers: Hypertension type: essential hypertension Qualified Code(s): I10 - Essential (primary) hypertension (5) Hydronephrosis, left Assessment/Plan: -L ureteral stent, previously followed by urologist in [place] -urology on board Code(s): N13.30 - UNSPECIFIED HYDRONEPHROSIS (6) Atrial fibrillation with RVR Assessment/Plan: -tele monitoring -continue Cardizem and Eliquis -cardiology on board Code(s): I48.91 - UNSPECIFIED ATRIAL FIBRILLATION (7) Hypomagnesemia Assessment/Plan: -Magnesium 2g IVPB x 1 dose STAT -Mg 1.4 -monitor lytes daily and replete as needed Code(s): E83.42 - HYPOMAGNESEMIA
[2018-12-02] MEDS: ATORVASTATIN CA 10 MG TABLET (FP) PO SCH (21:39)
[2018-12-03] MEDS ORDERED: dilTIAZem HCL 60 MG TABLET (FP) ONE ×3 (02:30→11:51)
[2018-12-03] MEDS ORDERED: dilTIAZem HCL 30 MG TABLET (FP) ONE ×3 (02:31→11:51)
[2018-12-03] MEDS: ACETAMINOPHEN 325 MG TABLET (FP) PO PRN ×4 (02:35→21:50)
[2018-12-03] MEDS: DILTIAZEM 60 MG, DILTIAZEM 30 MG PO SCH ×2 (02:35→06:04)
[2018-12-03] MEDS: INSULIN SLIDING SCALE (NOVOLOG) 1 VIAL SQ SCH ×4 (06:05→21:56)
--- NOTE | 2018-12-03 07:03 | PN ---
Progress Note, Physician History of Present Illness: POD13 s/p extensive lysis of intestinal adhesions for developing SBO, with suture repair of small RUQ incisional hernia from inside, with findings of previous intestinal reconstruction, likely hepaticojejunostomy, done years ago after post-cholecystectomy complications per pt. Pt postop had new onset of afib with RVR and was transferred to telemetry, treated with cardizem drip and prn's - now rate controlled on po meds. She is tolerating soft diabetic diet, but has been feeling full quickly, bloated and with abdominal pain, so was eating less yesterday. She is seen and examined in bed this morning, resting comfortably. She is voiding well and passing more gas, had small stool since seen yesterday. Ambulating during day with walker. She states she has been up and down during the night, to the bathroom and to sit at one point. Feeling better than yesterday, minimal pain. Had tylenol ~1am, but she does not remember that. Took more simethicone last night. No nausea. - Current Medication List Current Medications: Active Medications Acetaminophen (Tylenol -) 650 mg PO Q6H PRN PRN Reason: Pain Level 4 - 10 Last Admin: 12/03/18 02:35 Dose: 650 mg Allopurinol (Zyloprim -) 100 mg PO DAILY [facility] Last Admin: 12/02/18 10:12 Dose: 100 mg Apixaban (Eliquis -) 5 mg PO BID [facility] Last Admin: 12/02/18 21:39 Dose: 5 mg Atorvastatin Calcium (Lipitor -) 10 mg PO HS [facility] Last Admin: 12/02/18 21:39 Dose: 10 mg Diltiazem HCl (Cardizem Injection -) 10 mg IVPUSH Q4H PRN PRN Reason: TACHYCARDIA Last Admin: 11/26/18 17:37 Dose: 10 mg Diltiazem HCl 60 mg/ Diltiazem (HCl 30 mg) 90 mg PO Q6HPO [facility] Last Admin: 12/03/18 06:04 Dose: 90 mg Diphenhydramine HCl (Benadryl Injection -) 25 mg IVPB Q6H PRN PRN Reason: ITCHING Docusate Sodium (Colace -) 100 mg PO BID [facility] Last Admin: 12/02/18 21:39 Dose: 100 mg Insulin Aspart (Novolog Vial Sliding Scale -) 1 vial SQ [facility]; Protocol Last Admin: 12/03/18 06:05 Dose: 6 units Ondansetron HCl (Zofran Injection) 4 mg IVPUSH Q4H PRN PRN Reason: NAUSEA AND/OR VOMITING Last Admin: 11/25/18 06:39 Dose: 4 mg Oxycodone HCl (Roxicodone -) 5 mg PO Q4H PRN PRN Reason: Pain Level 6-10 BREAKTHROUGH Last Admin: 12/02/18 14:17 Dose: 5 mg Oxycodone HCl (Roxicodone -) 10 mg PO Q6H PRN PRN Reason: Pain Level 8 - 10 BREAKTHROUGH Last Admin: 12/01/18 16:35 Dose: 10 mg Propranolol HCl (Inderal La -) 60 mg PO DAILY [facility] Last Admin: 12/02/18 11:00 Dose: 60 mg Simethicone (Mylicon -) 80 mg PO Q6H PRN PRN Reason: GAS Last Admin: 12/02/18 21:43 Dose: 80 mg - Objective Vital Signs: Vital Signs Temperature 98.5 F 12/03/18 05:33 Pulse Rate 75 12/03/18 05:33 Respiratory Rate 20 12/03/18 05:33 Blood Pressure 182/75 H 12/03/18 05:33 O2 Sat by Pulse Oximetry (%) 99 12/02/18 21:00 Vital Signs Period Temp Pulse Resp BP Sys/Pascual Pulse Ox Last 24 Hr 97.7 F-98.5 F 65-82 20-20 137-187/69-92 99-99 Intake & Output 12/02/18 12/02/18 12/03/18 15:59 23:59 07:59 Intake Total 100 180 120 Output Total 700 1100 Balance 100 -520 -980 Intake: IVPB 100 Oral 180 120 Output: Urine 700 1100 Void 700 1100 Other: Voiding Method Toilet Toilet Toilet # Unmeasured Voids Void 2 Constitutional: Yes: No Distress, Calm, Obese Eyes: Yes: Conjunctiva Clear, EOM Intact HENT: Yes: Atraumatic, Normocephalic Gastrointestinal: Yes: Normal Bowel Sounds, Soft, Abdomen, Obese, Distention ( tympany in upper abdomen), Tenderness (mild, upper quadrants, less lower) Extremities: No: Cool, Cyanosis Integumentary: Yes: Incision (midline w/abhay). No: Jaundice, Rash Wound/Incision: Yes: Clean/Dry, Well Approximated, Abhay Intact, Open to air. No: Reddened Neurological: Yes: Alert, Oriented Labs: pending this am Problem List - Problems (1) Intestinal adhesions with partial obstruction Assessment/Plan: POD13 s/p extensive lysis of adhesions and RUQ incisional hernia repair s/p likely hepaticojejunostomy in past with intestinal reconstruction - with dilated/stagnant loop of anastomotic area had small enterotomy repaired in proximal SB with small yellow fluid leakage, minimal contamination stable postop tolerating diabetic soft diet but with abd distention and pain, less this morning trend labs, replete lytes prn continue simethicone will add reglan po tid before meals and recheck later today po pain meds prn incision c/d/i with abhay - will remove abhay this week OOB to chair and ambulate with assist as often as able possible short term rehab at discharge Code(s): K56.51 - INTESTINAL ADHESIONS [BANDS], WITH PARTIAL OBSTRUCTION (2) Incisional hernia, without obstruction or gangrene Code(s): K43.2 - INCISIONAL HERNIA WITHOUT OBSTRUCTION OR GANGRENE (3) Hypertension Assessment/Plan: controlled on po meds Code(s): I10 - ESSENTIAL (PRIMARY) HYPERTENSION Qualifiers: Hypertension type: essential hypertension Qualified Code(s): I10 - Essential (primary) hypertension (4) Diabetes mellitus type 2 in obese Assessment/Plan: FS with SSI coveraqe A1C high maintain glucose control - sugars still quite high would resume home diabetic regimen metformin stopped by medicine insulin regimen deferred to medicine - pt reports using 50 units lantus nightly before dinner Code(s): E11.69 - TYPE 2 DIABETES MELLITUS WITH OTHER SPECIFIED COMPLICATION; E66.9 - OBESITY, UNSPECIFIED (5) S/P ureteral stent placement Assessment/Plan: urology following renal ultrasound done stent management per uro - pt may need laser lithotripsy with stent removal as outpatient, off anticoagulation Code(s): Z96.0 - PRESENCE OF UROGENITAL IMPLANTS (6) Gout Assessment/Plan: home med resumed Code(s): M10.9 - GOUT, UNSPECIFIED Qualifiers: Gout site: toe Gout etiology: unspecified cause Chronicity: unspecified Laterality: unspecified laterality Qualified Code(s): M10.9 - Gout, unspecified (7) CKD (chronic kidney disease) stage 3, GFR 30-59 ml/min Assessment/Plan: nephrology following fluids off BUN/Cr back down monitor UOP strictly Code(s): N18.3 - CHRONIC KIDNEY DISEASE, STAGE 3 (MODERATE)
[2018-12-03 07:45] LABS: HEMATOCRIT 24.7 % (32.4-45.2); HEMOGLOBIN 8.5 GM/dL (10.7-15.3); MCH 26.8 pg (25.7-33.7); MCHC 34.3 g/dl (32.0-36.0); MEAN CELL VOLUME 78.1 fl (80-96); MEAN PLT VOLUME 8.7 fl (7.5-11.1); PLATELET COUNT 499 K/MM3 (134-434); RBC 3.16 M/mm3 (3.60-5.2); RDW 19.2 % (11.6-15.6)
[2018-12-03] MEDS: METOCLOPRAMIDE HCL 10 MG TABLET (FP) PO SCH ×3 (07:51→16:50)
[2018-12-03 08:09] LABS: ALBUMIN 1.9 g/dl (3.4-5.0); ALK PHOS 86 U/L (45-117); ANION GAP 6 MMOL/L (8-16); BILIRUBIN,TOTAL 0.6 mg/dL (0.2-1); BLOOD UREA NITROGEN 20 mg/dL (7-18); CALCIUM 8.5 mg/dL (8.5-10.1); CHLORIDE 102 mmol/L (98-107); CO2 28 mmol/L (21-32); CREATININE 1.2 mg/dL (0.55-1.3); GLUCOSE,RANDOM 282 mg/dL (74-106); MAGNESIUM 1.7 mg/dL (1.8-2.4); POTASSIUM 3.8 mmol/L (3.5-5.1); SGOT/AST 8 U/L (15-37); SGPT/ALT 7 U/L (13-61); SODIUM 136 mmol/L (136-145); TOT PROT 6.4 g/dl (6.4-8.2)
[2018-12-03] MEDS ORDERED: MAGNESIUM SULF 50% (8.12 MEQ/2 ML-1 GM VIAL) IVPB ONE (08:20)
[2018-12-03] MEDS: DOCUSATE SODIUM 100 MG CAPSULE (FP) PO SCH ×2 (09:33→21:46)
[2018-12-03] MEDS: ALLOPURINOL 100 MG TABLET (FP) PO SCH (09:33)
[2018-12-03] MEDS: APIXABAN 5 MG TABLET PO SCH ×2 (09:33→21:46)
[2018-12-03] MEDS: SIMETHICONE 80 MG TAB.CHEW (FP) PO PRN ×2 (09:43→15:18)
--- NOTE | 2018-12-03 11:34 | PN ---
Progress Note (short form) - Note Progress Note: s: no chest pain, palps, dizziness. Current Medications Acetaminophen (Tylenol -) 650 mg PO Q6H PRN PRN Reason: Pain Level 4 - 10 Last Admin: 12/03/18 09:41 Dose: 650 mg Allopurinol (Zyloprim -) 100 mg PO DAILY [facility] Last Admin: 12/03/18 09:33 Dose: 100 mg Apixaban (Eliquis -) 5 mg PO BID [facility] Last Admin: 12/03/18 09:33 Dose: 5 mg Atorvastatin Calcium (Lipitor -) 10 mg PO HS [facility] Last Admin: 12/02/18 21:39 Dose: 10 mg Diltiazem HCl (Cardizem Injection -) 10 mg IVPUSH Q4H PRN PRN Reason: TACHYCARDIA Last Admin: 11/26/18 17:37 Dose: 10 mg Diltiazem HCl 60 mg/ Diltiazem (HCl 30 mg) 90 mg PO Q6HPO [facility] Last Admin: 12/03/18 06:04 Dose: 90 mg Diphenhydramine HCl (Benadryl Injection -) 25 mg IVPB Q6H PRN PRN Reason: ITCHING Docusate Sodium (Colace -) 100 mg PO BID [facility] Last Admin: 12/03/18 09:33 Dose: 100 mg Insulin Aspart (Novolog Vial Sliding Scale -) 1 vial SQ [facility]; Protocol Last Admin: 12/03/18 06:05 Dose: 6 units Metoclopramide HCl (Reglan -) 10 mg PO TIDAC [facility] Last Admin: 12/03/18 07:51 Dose: 10 mg Ondansetron HCl (Zofran Injection) 4 mg IVPUSH Q4H PRN PRN Reason: NAUSEA AND/OR VOMITING Last Admin: 11/25/18 06:39 Dose: 4 mg Oxycodone HCl (Roxicodone -) 5 mg PO Q4H PRN PRN Reason: Pain Level 6-10 BREAKTHROUGH Last Admin: 12/02/18 14:17 Dose: 5 mg Oxycodone HCl (Roxicodone -) 10 mg PO Q6H PRN PRN Reason: Pain Level 8 - 10 BREAKTHROUGH Last Admin: 12/01/18 16:35 Dose: 10 mg Propranolol HCl (Inderal La -) 60 mg PO DAILY [facility] Last Admin: 12/03/18 09:34 Dose: 60 mg Simethicone (Mylicon -) 80 mg PO Q6H PRN PRN Reason: GAS Last Admin: 12/03/18 09:43 Dose: 80 mg - Objective Vital Signs: Vital Signs Period Temp Pulse Resp BP Sys/Pascual Pulse Ox Last 24 Hr 97.7 F-98.7 F 67-82 20-20 137-187/69-92 99 Constitutional: Yes: Well Nourished, No Distress, Calm Cardiovascular: Yes: Regular Rate and Rhythm, S1, S2. No: Gallop, Murmur Respiratory: Yes: Regular, CTA Bilaterally. No: Accessory Muscle Use, Rales, Wheezes Extremities: No: Cold Edema: No Neurological: Yes: Alert, Oriented Psychiatric: No: Agitated Assessment/Plan EKG: initial sinus, LVH, first deg AVB EKG 11/22 afib with RVR rate 135 bpm echo 11/2016 LV mildly dilated, nl LV function, sigmoid septum, RV nl, LA severely dilated, RA mildly enlarged, mild MR, mild TR, at least mild pulm HTN, RVSP at least 42 mmHg tele: sinus, 4 beat NSVT afib - in post op setting after ex lap, PAN - 11/25: converted spontaneously now to sinus - 11/26: overnight converted back to afib with RVR, dilt gtt was started, initially poor IV access now has been running, no improvement with additional lopressor 5 mg IV this morning. replete K and Mg, digoxin 0.125 mg IV x 1 ordered, cont dilt gtt - 11/27: started diltiazem 60 mg PO Q6H, increase to 90 mg Q6H, start propranolol 20 mg Q6H, uptitrate as tolerated, wean dilt gtt as tolerated -11/28-: rate controlled on po meds. eliquis started. -12/02-: back in sinus. same meds. transition diltiazem CD 360 mg daily SBO s/p ex lap, PAN - doing well post op from surgical pov HTN -holding clonidine here, given titrating up AVN blockers for new afib -BP had been stable - elevated today, repeat after receiving meds -observe trend pulm HTN, chronic diastolic HF - mild to mod, likely 2/2 diastolic CHF - appears euvolemic DM - manage per primary HLD - continue statin CHACHA on CKD -improving with ivfs -renal following, bp control as above.
[2018-12-03] MEDS: sitaGLIPtin PHOSPHATE 25 MG TABLET (FP) PO SCH ×2 (12:47→13:06)
[2018-12-03] MEDS: oxyCODONE HCL 5 MG TABLET PO PRN (15:26)
--- NOTE | 2018-12-03 16:07 | PN ---
Progress Note (short form) - Note Progress Note: Renal follow up for CHACHA Pt seen and examined at the bedside feels better, abd pain much improved compared to yesterday tolerating diet no CP, SOB, N/V/D, fever,chills making urine Vital Signs Temperature 98 F 12/03/18 14:10 Pulse Rate 72 12/03/18 14:10 Respiratory Rate 18 12/03/18 14:10 Blood Pressure 164/79 12/03/18 14:10 O2 Sat by Pulse Oximetry (%) 98 12/03/18 09:00 Intake & Output 11/30/18 12/01/18 12/02/18 12/03/18 23:59 23:59 23:59 23:59 Intake Total 2103 591 280 120 Output Total 483 717 3202 Balance 1703 591 420 -1680 distress from abd pain neck supple, no JVD RRR CTA + abd tenderness no LE edema, clubbing or edema CBC, BMP 12/03/18 06:50 12/03/18 06:50 Current Medications Acetaminophen (Tylenol -) 650 mg PO Q6H PRN PRN Reason: Pain Level 4 - 10 Last Admin: 12/03/18 15:18 Dose: 650 mg Allopurinol (Zyloprim -) 100 mg PO DAILY [facility] Last Admin: 12/03/18 09:33 Dose: 100 mg Apixaban (Eliquis -) 5 mg PO BID [facility] Last Admin: 12/03/18 09:33 Dose: 5 mg Atorvastatin Calcium (Lipitor -) 10 mg PO HS [facility] Last Admin: 12/02/18 21:39 Dose: 10 mg Diltiazem HCl (Cardizem Injection -) 10 mg IVPUSH Q4H PRN PRN Reason: TACHYCARDIA Last Admin: 11/26/18 17:37 Dose: 10 mg Diltiazem HCl (Cardizem Cd -) 360 mg PO DAILY [facility] Last Admin: 12/03/18 12:32 Dose: 360 mg Diphenhydramine HCl (Benadryl Injection -) 25 mg IVPB Q6H PRN PRN Reason: ITCHING Docusate Sodium (Colace -) 100 mg PO BID [facility] Last Admin: 12/03/18 09:33 Dose: 100 mg Insulin Aspart (Novolog Vial Sliding Scale -) 1 vial SQ [facility]; Protocol Last Admin: 12/03/18 12:11 Dose: 8 units Insulin Detemir (Levemir Vial) 30 units SQ [facility] Metoclopramide HCl (Reglan -) 10 mg PO TIDAC [facility] Last Admin: 12/03/18 12:11 Dose: 10 mg Ondansetron HCl (Zofran Injection) 4 mg IVPUSH Q4H PRN PRN Reason: NAUSEA AND/OR VOMITING Last Admin: 11/25/18 06:39 Dose: 4 mg Oxycodone HCl (Roxicodone -) 5 mg PO Q4H PRN PRN Reason: Pain Level 6-10 BREAKTHROUGH Last Admin: 12/03/18 15:26 Dose: 5 mg Oxycodone HCl (Roxicodone -) 10 mg PO Q6H PRN PRN Reason: Pain Level 8 - 10 BREAKTHROUGH Last Admin: 12/01/18 16:35 Dose: 10 mg Propranolol HCl (Inderal La -) 60 mg PO DAILY [facility] Last Admin: 12/03/18 09:34 Dose: 60 mg Simethicone (Mylicon -) 80 mg PO Q6H PRN PRN Reason: GAS Last Admin: 12/03/18 15:18 Dose: 80 mg Sitagliptin Phosphate (Januvia -) 25 mg PO DAILY@0700 [facility] Last Admin: 12/03/18 13:06 Dose: 25 mg 72 year old woman with hx of CKD, Nephrolithiasis, DM who presented with Abd pain secondary to SBO s/p surgical intervention with CHACHA. #Recurrent CHACHA #SBO s/p OR Renal function improved tolerating oral diet continue to trend renal function and electrolytes Thank you Ethan Ram DO
--- NOTE | 2018-12-03 17:38 | PN ---
Progress Note, Physician Chief Complaint: Abdominal pain SBP vs Cecal Volvulus History of Present Illness: NAD Feeling slightly better passing flatus no BM today sitting in the solarium, ambulating self to bathroom Appetite appropriate Seen by Surgery - Current Medication List Current Medications: Active Medications Acetaminophen (Tylenol -) 650 mg PO Q6H PRN PRN Reason: Pain Level 4 - 10 Last Admin: 12/03/18 15:18 Dose: 650 mg Allopurinol (Zyloprim -) 100 mg PO DAILY [facility] BEDS [facility] Last Admin: 12/03/18 09:33 Dose: 100 mg Apixaban (Eliquis -) 5 mg PO BID [facility] 234 B[facility]S [facility] Last Admin: 12/03/18 09:33 Dose: 5 mg Atorvastatin Calcium (Lipitor -) 10 mg PO [facility] Last Admin: 12/02/18 21:39 Dose: 10 mg Bisacodyl (Dulcolax -) 10 mg PO ONCE ONE Stop: 12/03/18 21:01 Diltiazem HCl (Cardizem Injection -) 10 mg IVPUSH Q4H PRN PRN Reason: TACHYCARDIA Last Admin: 11/26/18 17:37 Dose: 10 mg Diltiazem HCl (Cardizem Cd -) 360 mg PO DAILY [facility] 234 B[facility]S [facility] Last Admin: 12/03/18 12:32 Dose: 360 mg Diphenhydramine HCl (Benadryl Injection -) 25 mg IVPB Q6H PRN PRN Reason: ITCHING Docusate Sodium (Colace -) 100 mg PO BID [facility]S [facility] Last Admin: 12/03/18 09:33 Dose: 100 mg Insulin Aspart (Novolog Vial Sliding Scale -) 1 vial SQ [facility]; Protocol Last Admin: 12/03/18 16:52 Dose: 8 units Insulin Detemir (Levemir Vial) 30 units SQ [facility] Metoclopramide HCl (Reglan -) 10 mg PO TIDAC [facility] 234 BEDS AT [facility] Last Admin: 12/03/18 16:50 Dose: 10 mg Ondansetron HCl (Zofran Injection) 4 mg IVPUSH Q4H PRN PRN Reason: NAUSEA AND/OR VOMITING Last Admin: 11/25/18 06:39 Dose: 4 mg Oxycodone HCl (Roxicodone -) 5 mg PO Q4H PRN PRN Reason: Pain Level 6-10 BREAKTHROUGH Last Admin: 12/03/18 15:26 Dose: 5 mg Oxycodone HCl (Roxicodone -) 10 mg PO Q6H PRN PRN Reason: Pain Level 8 - 10 BREAKTHROUGH Last Admin: 12/01/18 16:35 Dose: 10 mg Propranolol HCl (Inderal La -) 60 mg PO DAILY [facility]S [facility] Last Admin: 12/03/18 09:34 Dose: 60 mg Simethicone (Mylicon -) 80 mg PO TID [facility] 234 B[facility]S AT [facility] Sitagliptin Phosphate (Januvia -) 25 mg PO DAILY@0700 [facility] 234 [facility]EDS AT [facility] Last Admin: 12/03/18 13:06 Dose: 25 mg - Objective Vital Signs: Vital Signs Temperature 98 F 12/03/18 14:10 Pulse Rate 72 12/03/18 14:10 Respiratory Rate 18 12/03/18 14:10 Blood Pressure 164/79 12/03/18 14:10 O2 Sat by Pulse Oximetry (%) 98 12/03/18 09:00 Constitutional: Yes: Well Nourished, No Distress, Calm Cardiovascular: Yes: Regular Rate and Rhythm Respiratory: Yes: Regular Gastrointestinal: Yes: Normal Bowel Sounds, Soft, Abdomen, Obese, Tenderness ( incisional) Musculoskeletal: Yes: Muscle Weakness Extremities: Yes: WNL Edema: No Peripheral Pulses WNL: Yes Neurological: Yes: Alert, Oriented Psychiatric: Yes: Alert, Oriented Labs: CBC, BMP 12/03/18 06:50 12/03/18 06:50 INR, PTT INR 1.19 (0.82-1.09) 11/16/18 14:35 Problem List - Problems (1) Atrial fibrillation with RVR Assessment/Plan: -tele monitoring -continue Cardizem and Eliquis -cardiology on board Code(s): I48.91 - UNSPECIFIED ATRIAL FIBRILLATION (2) CKD (chronic kidney disease) stage 3, GFR 30-59 ml/min Assessment/Plan: -Cr improving -monitor trend -renal on board Code(s): N18.3 - CHRONIC KIDNEY DISEASE, STAGE 3 (MODERATE) (3) Diabetes mellitus type 2 in obese Assessment/Plan: -BGM ACHS -Novolog sliding scale -HgA1c 8.9% -Diabetic low sodium diet -RD consult Code(s): E11.69 - TYPE 2 DIABETES MELLITUS WITH OTHER SPECIFIED COMPLICATION; E66.9 - OBESITY, UNSPECIFIED (4) Generalized abdominal pain Assessment/Plan: -Abdomen and Pelvic CT scan shows abnormal cecal position but no evidence of volvulus, abnormal ileal loops possibly representing enteritis -Meckel scan shows no scintigraphic evidence of Meckel diverticulum containing ectopic gastric mucosa -S/p laparatomy with extensive lysis of adhesion and suture repair of RUQ incisional hernia -pain management -tolerating PO intake -surgery on board -GI on board -zofran prn for nausea -Reglan TID AC -continue with Simethicone-change to standing order temporarily instead of PRN Code(s): R10.84 - GENERALIZED ABDOMINAL PAIN (5) Hypertension Assessment/Plan: -continue Propanolol and cardizem -Chnage diet to low sodium diabetic -cardiology on board Code(s): I10 - ESSENTIAL (PRIMARY) HYPERTENSION Qualifiers: Hypertension type: essential hypertension Qualified Code(s): I10 - Essential (primary) hypertension (6) Hypomagnesemia Assessment/Plan: -Mg-1.7 today -replaced today -monitor trend Code(s): E83.42 - HYPOMAGNESEMIA Assessment/Plan see problem list physical therapy
[2018-12-03] MEDS ORDERED: BISACODYL 5 MG TABLET.DR (FP) PO ONE (21:00)
[2018-12-03] MEDS: ATORVASTATIN CA 10 MG TABLET (FP) PO SCH (21:46)
[2018-12-03] MEDS: SIMETHICONE 80 MG TAB.CHEW (FP) PO SCH (21:46)
[2018-12-03] MEDS ORDERED: INSULIN (LEVEMIR) 100 UNITS/ML UNITS SQ SCH (22:00)
--- NOTE | 2018-12-03 22:15 | CONSULT ---
Consult Consult Specialty:: ENDOCRINE Referred by:: MUNIRA HELTON NP Reason for Consultation:: DIABETES MELLITUS 2 - History of Present Illness Chief Complaint: POOR APPETITE HIGH SUGARS History of Present Illness: 72 year old woman PMH DM2, HTN, CKD, nephrolithiasis s/p L ureteral stent, who presented to the ED 11/16/18 with LBP and abdominal pain. She was seen by both Surgery and GI, and on 11/20/18 underwent ex-lap for SBO with extensive PAN and hernia repair. Renal was consulted for CHACHA Given iv fluid rehydration and correction of volemia.has required insulin therapy and voverage for hyperglycemia,she denies blurred vision,chest pain,cough nausea or vomiting. 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) ...: No Infectious Disease: No: AIDS Psych: No: Addictions Musculoskeletal: Yes: Chronic low back pain (s/p low back surgery/disc issues in past) Rheumatology: Yes: Gout Endocrine: Yes: Diabetes Mellitus, Other (adrenal adenoma) - Past Surgical History Past Surgical History: Yes: Cholecystectomy, Colonoscopy, Hernia Repair (ventral /?umbilical with mesh years ago), Hysterectomy, Joint Replacement (bilateral knee total knee replacement), Laminectomy (Lumbar spine), Stent (left ureteral ( placed early this month in [place])), Upper Endoscopy - Alcohol/Substance Use Hx Alcohol Use: No History of Substance Use: reports: None - Smoking History Smoking history: Never smoked Have you smoked in the past 12 months: No Aproximately how many cigarettes per day: 0 - Social History Usual Living Arrangement: Alone (brother lives with her) ADL: Independent (in apartment with 3-4 steps to enter) 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[employer], 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 History of Recent Travel: Yes ([place], [place] from June to 11/06/18) Home Medications - Allergies Allergies/Adverse Reactions: Allergies Allergy/AdvReac Type Severity Reaction Status Date / Time latex Allergy Severe Swelling Verified 11/16/18 13:55 insulin lispro [From Humalog] Allergy Intermediate Generalized Verified 13:55 rash and itching naproxen [From Naprosyn] Allergy Swelling Verified 11/16/18 13:55 oxaprozin [From Daypro] Allergy Swelling Verified 11/16/18 13:55 saxagliptin HCl Allergy leg edema Verified 11/16/18 13:55 [From Onglyza] latex Allergy Severe Uncoded 11/16/18 13:55 Mushrooms Allergy Uncoded 11/16/18 13:55 naproxen Allergy Uncoded 11/16/18 13:55 - Home Medications Home Medications: Ambulatory Orders Cholecalciferol (Vitamin D3) [Vitamin D3] 50 mcg PO DAILY 10/19/16 Insulin (Levemir) [Levemir Vial] 55 unit SQ ASDIR 10/19/16 Allopurinol [Zyloprim -] 100 mg PO DAILY 12/20/16 Insulin (LOG) Aspart [NovoLOG -] 7 units SQ DAILY 01/16/17 Aspirin [ASA -] 81 mg PO DAILY 03/19/18 Amlodipine Besylate 5 mg PO DAILY 11/16/18 Atorvastatin Calcium 10 mg PO DAILY 11/16/18 Chlorthalidone 25 mg PO DAILY 11/16/18 Ciprofloxacin [Cipro (Restricted To Id)] 500 mg PO BID 11/16/18 Potassium Citrate [Potassium Citrate ER] 30 meq PO BID 11/16/18 Family Disease History - Family Disease History Family Disease History: Other: Father ( 84), Mother (lived to 96) Other Family History: NO IBD or cancer, Pat aunt had DM Review of Systems - Review of Systems Constitutional: reports: Loss of Appetite, Weakness Eyes: reports: Blurred Vision HENT: reports: No Symptoms Neck: reports: No Symptoms Cardiovascular: reports: Shortness of Breath Respiratory: reports: Exercise Intolerance, SOB on Exertion Gastrointestinal: reports: Bloating Genitourinary: reports: No Symptoms Breasts: reports: No Symptoms Reported Musculoskeletal: reports: No Symptoms Neurological: reports: Numbness, Weakness Endocrine: reports: No Symptoms Hematology/Lymphatic: reports: No Symptoms Psychiatric: reports: Anxiety Physical Exam Vital Signs: Vital Signs Temperature 98.3 F 12/03/18 18:00 Pulse Rate 73 12/03/18 18:00 Respiratory Rate 16 12/03/18 18:00 Blood Pressure 158/77 12/03/18 18:00 O2 Sat by Pulse Oximetry (%) 98 12/03/18 20:38 Constitutional: Yes: Calm Eyes: Yes: EOM Intact HENT: Yes: Normocephalic Neck: Yes: Trachea Midline Cardiovascular: Yes: Regular Rate and Rhythm Respiratory: Yes: CTA Bilaterally Gastrointestinal: Yes: Normal Bowel Sounds, Soft ...Rectal Exam: Yes: Deferred Renal/: Yes: WNL Musculoskeletal: Yes: WNL Extremities: Yes: WNL Edema: No Neurological: Yes: Alert, Oriented Labs: CBC, BMP 12/03/18 06:50 12/03/18 06:50 Problem List - Problems (1) Adrenal adenoma Code(s): D35.00 - BENIGN NEOPLASM OF UNSPECIFIED ADRENAL GLAND (2) Atrial fibrillation with RVR Code(s): I48.91 - UNSPECIFIED ATRIAL FIBRILLATION (3) CKD (chronic kidney disease) stage 3, GFR 30-59 ml/min Code(s): N18.3 - CHRONIC KIDNEY DISEASE, STAGE 3 (MODERATE) (4) Constipation Code(s): K59.00 - CONSTIPATION, UNSPECIFIED (5) Diabetes mellitus type 2 in obese Code(s): E11.69 - TYPE 2 DIABETES MELLITUS WITH OTHER SPECIFIED COMPLICATION; E66.9 - OBESITY, UNSPECIFIED (6) Distended abdomen Code(s): R14.0 - ABDOMINAL DISTENSION (GASEOUS) (7) Diverticula of colon Code(s): K57.30 - DVRTCLOS OF LG INT W/O PERFORATION OR ABSCESS W/O BLEEDING (8) Generalized abdominal pain Code(s): R10.84 - GENERALIZED ABDOMINAL PAIN Assessment/Plan Current Active Problems Adrenal adenoma (Acute) Atrial fibrillation with RVR (Acute) CKD (chronic kidney disease) stage 3, GFR 30-59 ml/min (Acute) Constipation (Acute) Diabetes mellitus type 2 in obese (Acute) Distended abdomen (Acute) Diverticula of colon (Acute) Generalized abdominal pain (Acute) Gout (Acute) Head ache (Acute) Headache (Acute) History of cholecystectomy (Acute) History of common bile duct surgery (Acute) Hypertension (Acute) Hypomagnesemia (Acute) Ileitis (Acute) Incisional hernia, without obstruction or gangrene (Acute) Intestinal adhesions with partial obstruction (Acute) Pneumobilia (Acute) RUQ pain (Acute) S/P ureteral stent placement (Acute) Small bowel obstruction (Acute) Abnormal Lab Results 12/03/18 12/03/18 06:50 06:50 WBC 11.0 H RBC 3.16 L Hgb 8.5 L Hct 24.7 L MCV 78.1 L RDW 19.2 H Plt Count 499 H Anion Gap 6 L BUN 20 H Random Glucose 282 H Magnesium 1.7 L AST 8 L ALT 7 L Albumin 1.9 L Laboratory Tests 11/17/18 12/03/18 12/03/18 06:40 05:28 05:30 Sodium Potassium Chloride Carbon Dioxide Anion Gap BUN Creatinine Creat Clearance w eGFR POC Glucometer 282 285 Hemoglobin A1c % 8.9 H 12/03/18 12/03/18 12/03/18 06:50 12:08 16:46 Sodium 136 Potassium 3.8 Chloride 102 Carbon Dioxide 28 Anion Gap 6 L BUN 20 H Creatinine 1.2 Creat Clearance w eGFR 43.91 POC Glucometer 307 346 Hemoglobin A1c % 12/03/18 21:52 Sodium Potassium Chloride Carbon Dioxide Anion Gap BUN Creatinine Creat Clearance w eGFR POC Glucometer 325 Hemoglobin A1c % right adrenal adenoma possible incidentaloma plan: dexamethasone suppression test continue bgm qid novolog coverage levemir low dose titration till appetite improves
[2018-12-03] MEDS ORDERED: DEXAMETHASONE 0.5 MG TABLET PO ONE (23:00)
[2018-12-04] MEDS: SIMETHICONE 80 MG TAB.CHEW (FP) PO SCH ×3 (05:59→22:45)
[2018-12-04] MEDS: INSULIN SLIDING SCALE (NOVOLOG) 1 VIAL SQ SCH ×4 (06:16→22:46)
[2018-12-04] MEDS: sitaGLIPtin PHOSPHATE 25 MG TABLET (FP) PO SCH (06:19)
[2018-12-04] MEDS: METOCLOPRAMIDE HCL 10 MG TABLET (FP) PO SCH ×3 (06:19→17:36)
[2018-12-04 06:33] LABS: BASO % 1.2 % (0-2.0); EOS % 0.8 % (0-4.5); HEMOGLOBIN 8.5 GM/dL (10.7-15.3); LYMPH % 7.8 % (8-40); MCH 26.5 pg (25.7-33.7); MCHC 33.9 g/dl (32.0-36.0); MEAN CELL VOLUME 78.1 fl (80-96); MEAN PLT VOLUME 8.7 fl (7.5-11.1); MONO % 10.2 % (3.8-10.2); PLATELET COUNT 484 K/MM3 (134-434); RDW 19.7 % (11.6-15.6); WHITE BLOOD COUNT 10.6 K/mm3 (4.0-10.0)
[2018-12-04] MEDS ORDERED: INSULIN (LEVEMIR) 100 UNITS/ML UNITS SQ SCH ×2 (07:00→10:49)
[2018-12-04 07:02] LABS: ALBUMIN 1.9 g/dl (3.4-5.0); ALK PHOS 96 U/L (45-117); ANION GAP 6 MMOL/L (8-16); BILIRUBIN,TOTAL 0.6 mg/dL (0.2-1); BLOOD UREA NITROGEN 20 mg/dL (7-18); CALCIUM 8.2 mg/dL (8.5-10.1); CHLORIDE 101 mmol/L (98-107); CO2 31 mmol/L (21-32); CREATININE 1.4 mg/dL (0.55-1.3); GLUCOSE,RANDOM 286 mg/dL (74-106); MAGNESIUM 1.7 mg/dL (1.8-2.4); PHOSPHOROUS 3.2 mg/dL (2.5-4.9); POTASSIUM 4.6 mmol/L (3.5-5.1); SGOT/AST 8 U/L (15-37); SGPT/ALT 8 U/L (13-61); SODIUM 137 mmol/L (136-145); TOT PROT 6.7 g/dl (6.4-8.2)
--- NOTE | 2018-12-04 10:55 | PN ---
Progress Note, Physician Chief Complaint: Abdominal pain SBP vs Cecal Volvulus History of Present Illness: NAD Feeling slightly better passing flatus no BM today Appetite appropriate Seen by Surgery Still hypertensive,BP not at goal Diet changed to low sodium Seen by Endocrinology - Current Medication List Current Medications: Active Medications Acetaminophen (Tylenol -) 650 mg PO Q6H PRN PRN Reason: Pain Level 4 - 10 Last Admin: 12/03/18 21:50 Dose: 650 mg Allopurinol (Zyloprim -) 100 mg PO DAILY [facility] Last Admin: 12/03/18 09:33 Dose: 100 mg Apixaban (Eliquis -) 5 mg PO BID [facility] Last Admin: 12/03/18 21:46 Dose: 5 mg Atorvastatin Calcium (Lipitor -) 10 mg PO HS [facility] Last Admin: 12/03/18 21:46 Dose: 10 mg Clonidine (Catapres -) 0.2 mg PO TID [facility] Diltiazem HCl (Cardizem Injection -) 10 mg IVPUSH Q4H PRN PRN Reason: TACHYCARDIA Last Admin: 11/26/18 17:37 Dose: 10 mg Diltiazem HCl (Cardizem Cd -) 360 mg PO DAILY [facility] Last Admin: 12/03/18 12:32 Dose: 360 mg Diphenhydramine HCl (Benadryl Injection -) 25 mg IVPB Q6H PRN PRN Reason: ITCHING Docusate Sodium (Colace -) 100 mg PO BID [facility] Last Admin: 12/03/18 21:46 Dose: 100 mg Insulin Aspart (Novolog Vial Sliding Scale -) 1 vial SQ [facility]; Protocol Last Admin: 12/04/18 06:16 Dose: 6 units Insulin Detemir (Levemir Vial) 20 units SQ DAILY@0700 [facility] Last Admin: 12/04/18 06:17 Dose: 20 units Insulin Detemir (Levemir Vial) 36 units SQ HS [facility] Metoclopramide HCl (Reglan -) 10 mg PO TIDAC [facility] Last Admin: 12/04/18 06:19 Dose: 10 mg Ondansetron HCl (Zofran Injection) 4 mg IVPUSH Q4H PRN PRN Reason: NAUSEA AND/OR VOMITING Last Admin: 11/25/18 06:39 Dose: 4 mg Oxycodone HCl (Roxicodone -) 5 mg PO Q4H PRN PRN Reason: Pain Level 6-10 BREAKTHROUGH Last Admin: 12/03/18 15:26 Dose: 5 mg Oxycodone HCl (Roxicodone -) 10 mg PO Q6H PRN PRN Reason: Pain Level 8 - 10 BREAKTHROUGH Last Admin: 12/01/18 16:35 Dose: 10 mg Propranolol HCl (Inderal La -) 60 mg PO DAILY [facility] Last Admin: 12/03/18 09:34 Dose: 60 mg Simethicone (Mylicon -) 80 mg PO TID [facility] Last Admin: 12/04/18 05:59 Dose: 80 mg Sitagliptin Phosphate (Januvia -) 25 mg PO DAILY@0700 [facility] Last Admin: 12/04/18 06:19 Dose: 25 mg - Objective Vital Signs: Vital Signs Temperature 98.1 F 12/04/18 05:50 Pulse Rate 82 12/04/18 05:50 Respiratory Rate 20 12/04/18 05:50 Blood Pressure 168/74 12/04/18 05:50 O2 Sat by Pulse Oximetry (%) 98 12/03/18 20:38 Constitutional: Yes: Well Nourished, No Distress, Calm, Obese Cardiovascular: Yes: Regular Rate and Rhythm Respiratory: Yes: Regular Gastrointestinal: Yes: Normal Bowel Sounds, Soft, Abdomen, Obese, Tenderness ( post op incisional) Genitourinary: Yes: WNL Musculoskeletal: Yes: Muscle Weakness Extremities: Yes: WNL Edema: No Peripheral Pulses WNL: Yes Neurological: Yes: Alert, Oriented Psychiatric: Yes: Alert, Oriented Labs: CBC, BMP 12/04/18 05:30 12/04/18 05:30 INR, PTT INR 1.19 (0.82-1.09) 11/16/18 14:35 Problem List - Problems (1) Atrial fibrillation with RVR Assessment/Plan: -rate controlled -tele monitoring -continue Cardizem and Eliquis -cardiology on board Code(s): I48.91 - UNSPECIFIED ATRIAL FIBRILLATION (2) CKD (chronic kidney disease) stage 3, GFR 30-59 ml/min Assessment/Plan: -Cr improving -monitor trend -renal on board Code(s): N18.3 - CHRONIC KIDNEY DISEASE, STAGE 3 (MODERATE) (3) Diabetes mellitus type 2 in obese Assessment/Plan: -BGM ACHS -Novolog sliding scale -HgA1c 8.9% -Diabetic low sodium diet -RD consult -Levemir restarted at 30 U HS and 20 U daily in AM -Adjust levemir to 36 U HS -D/C Neil Code(s): E11.69 - TYPE 2 DIABETES MELLITUS WITH OTHER SPECIFIED COMPLICATION; E66.9 - OBESITY, UNSPECIFIED (4) Generalized abdominal pain Assessment/Plan: -Abdomen and Pelvic CT scan shows abnormal cecal position but no evidence of volvulus, abnormal ileal loops possibly representing enteritis -Meckel scan shows no scintigraphic evidence of Meckel diverticulum containing ectopic gastric mucosa -S/p laparatomy with extensive lysis of adhesion and suture repair of RUQ incisional hernia -pain management -tolerating PO intake -surgery on board -GI on board -zofran prn for nausea -Reglan TID AC -continue with Simethicone-change to standing order temporarily instead of PRN Code(s): R10.84 - GENERALIZED ABDOMINAL PAIN (5) Hypertension Assessment/Plan: -continue Propanolol and cardizem -Low sodium diabetic diet -Clonidine restarted -cardiology on board Code(s): I10 - ESSENTIAL (PRIMARY) HYPERTENSION Qualifiers: Hypertension type: essential hypertension Qualified Code(s): I10 - Essential (primary) hypertension (6) Hypomagnesemia Assessment/Plan: -Mg-1.7 today -replaced today -monitor trend Code(s): E83.42 - HYPOMAGNESEMIA Assessment/Plan see problem list physical therapy
--- NOTE | 2018-12-04 11:01 | PN ---
Progress Note (short form) - Note Progress Note: s: no chest pain, palps, dizziness. abd pain improving Current Medications Acetaminophen (Tylenol -) 650 mg PO Q6H PRN PRN Reason: Pain Level 4 - 10 Last Admin: 12/03/18 21:50 Dose: 650 mg Allopurinol (Zyloprim -) 100 mg PO DAILY [facility] Last Admin: 12/03/18 09:33 Dose: 100 mg Apixaban (Eliquis -) 5 mg PO BID [facility] Last Admin: 12/03/18 21:46 Dose: 5 mg Atorvastatin Calcium (Lipitor -) 10 mg PO HS [facility] Last Admin: 12/03/18 21:46 Dose: 10 mg Clonidine (Catapres -) 0.2 mg PO TID [facility] Diltiazem HCl (Cardizem Injection -) 10 mg IVPUSH Q4H PRN PRN Reason: TACHYCARDIA Last Admin: 11/26/18 17:37 Dose: 10 mg Diltiazem HCl (Cardizem Cd -) 360 mg PO DAILY [facility] Last Admin: 12/03/18 12:32 Dose: 360 mg Diphenhydramine HCl (Benadryl Injection -) 25 mg IVPB Q6H PRN PRN Reason: ITCHING Docusate Sodium (Colace -) 100 mg PO BID [facility] Last Admin: 12/03/18 21:46 Dose: 100 mg Insulin Aspart (Novolog Vial Sliding Scale -) 1 vial SQ [facility]; Protocol Last Admin: 12/04/18 06:16 Dose: 6 units Insulin Detemir (Levemir Vial) 20 units SQ DAILY@0700 [facility] Last Admin: 12/04/18 06:17 Dose: 20 units Insulin Detemir (Levemir Vial) 36 units SQ HS [facility] Magnesium Oxide (Mag-Ox -) 400 mg PO BID [facility] Metoclopramide HCl (Reglan -) 10 mg PO TIDAC [facility] Last Admin: 12/04/18 06:19 Dose: 10 mg Ondansetron HCl (Zofran Injection) 4 mg IVPUSH Q4H PRN PRN Reason: NAUSEA AND/OR VOMITING Last Admin: 11/25/18 06:39 Dose: 4 mg Oxycodone HCl (Roxicodone -) 5 mg PO Q4H PRN PRN Reason: Pain Level 6-10 BREAKTHROUGH Last Admin: 12/03/18 15:26 Dose: 5 mg Oxycodone HCl (Roxicodone -) 10 mg PO Q6H PRN PRN Reason: Pain Level 8 - 10 BREAKTHROUGH Last Admin: 12/01/18 16:35 Dose: 10 mg Propranolol HCl (Inderal La -) 60 mg PO DAILY [facility] Last Admin: 12/03/18 09:34 Dose: 60 mg Simethicone (Mylicon -) 80 mg PO TID [facility] Last Admin: 12/04/18 05:59 Dose: 80 mg - Objective Vital Signs: Vital Signs Period Temp Pulse Resp BP Sys/Pascual Pulse Ox Last 24 Hr 98 F-99 F 71-82 16-20 158-172/74-80 98 Constitutional: Yes: Well Nourished, No Distress, Calm Cardiovascular: Yes: Regular Rate and Rhythm, S1, S2. No: Gallop, Murmur Respiratory: Yes: Regular, CTA Bilaterally. No: Accessory Muscle Use, Rales, Wheezes Extremities: No: Cold Edema: No Neurological: Yes: Alert, Oriented Psychiatric: No: Agitated Assessment/Plan EKG: initial sinus, LVH, first deg AVB EKG 11/22 afib with RVR rate 135 bpm echo 11/2016 LV mildly dilated, nl LV function, sigmoid septum, RV nl, LA severely dilated, RA mildly enlarged, mild MR, mild TR, at least mild pulm HTN, RVSP at least 42 mmHg tele: sinus, sinus tachy afib - in post op setting after ex lap, PAN - 11/25: converted spontaneously now to sinus - 11/26: overnight converted back to afib with RVR, dilt gtt was started, initially poor IV access now has been running, no improvement with additional lopressor 5 mg IV this morning. replete K and Mg, digoxin 0.125 mg IV x 1 ordered, cont dilt gtt - 11/27: started diltiazem 60 mg PO Q6H, increase to 90 mg Q6H, start propranolol 20 mg Q6H, uptitrate as tolerated, wean dilt gtt as tolerated -11/28-7: rate controlled on po meds. eliquis started. -12/02-10: sinus. continue diltiazem CD 360 mg daily, propranolol LA 60 mg daily SBO s/p ex lap, PAN - doing well post op from surgical pov HTN -held clonidine here, given titrating up AVN blockers for new afib -BP had been stable - now elevated, at home was on amlodipine 10 mg daily, lisinopril 40 mg BID, chlorthalidone 25 mg daily and clonidine 0.2 mg TID - off amlodipine, now on diltiazem, continue - hold lisinopril, chlorthalidone in setting of CHACHA - restart clonidine 0.2 mg TID pulm HTN, chronic diastolic HF - mild to mod, likely 2/2 diastolic CHF - appears euvolemic DM - manage per primary HLD - continue statin CHACHA on CKD -improving with ivfs -renal following, bp control as above.
[2018-12-04] MEDS: DOCUSATE SODIUM 100 MG CAPSULE (FP) PO SCH ×2 (11:27→22:45)
[2018-12-04] MEDS: APIXABAN 5 MG TABLET PO SCH ×2 (11:28→22:45)
[2018-12-04] MEDS: ALLOPURINOL 100 MG TABLET (FP) PO SCH (11:29)
[2018-12-04] MEDS: MAGNESIUM OXIDE 400 MG TABLET (FP) PO SCH ×2 (11:29→22:45)
--- NOTE | 2018-12-04 11:34 | PN ---
Progress Note (short form) - Note Progress Note: Renal follow up for CHACHA Pt seen and examined at the bedside no acute complaints abd pain is controlled no cp, sob, N/V/D, fever or chills making urine, no flank pain Vital Signs Temperature 98 F 12/04/18 10:00 Pulse Rate 84 12/04/18 10:00 Respiratory Rate 20 12/04/18 10:00 Blood Pressure 188/106 H 12/04/18 10:00 O2 Sat by Pulse Oximetry (%) 98 12/03/18 20:38 Intake & Output 12/01/18 12/02/18 12/03/18 12/04/18 23:59 23:59 23:59 23:59 Intake Total 591 280 600 Output Total 700 2550 Balance 591 -420 -1950 NAD RRR CTA slight abd tenderness No Le edema CBC, BMP 12/04/18 05:30 12/04/18 05:30 Current Medications Acetaminophen (Tylenol -) 650 mg PO Q6H PRN PRN Reason: Pain Level 4 - 10 Last Admin: 12/03/18 21:50 Dose: 650 mg Allopurinol (Zyloprim -) 100 mg PO DAILY [facility] Last Admin: 12/04/18 11:29 Dose: 100 mg Apixaban (Eliquis -) 5 mg PO BID [facility] Last Admin: 12/04/18 11:28 Dose: 5 mg Atorvastatin Calcium (Lipitor -) 10 mg PO HS [facility] Last Admin: 12/03/18 21:46 Dose: 10 mg Clonidine (Catapres -) 0.2 mg PO TID [facility] Diltiazem HCl (Cardizem Injection -) 10 mg IVPUSH Q4H PRN PRN Reason: TACHYCARDIA Last Admin: 11/26/18 17:37 Dose: 10 mg Diltiazem HCl (Cardizem Cd -) 360 mg PO DAILY [facility] Last Admin: 12/04/18 11:27 Dose: 360 mg Diphenhydramine HCl (Benadryl Injection -) 25 mg IVPB Q6H PRN PRN Reason: ITCHING Docusate Sodium (Colace -) 100 mg PO BID [facility] Last Admin: 12/04/18 11:27 Dose: 100 mg Insulin Aspart (Novolog Vial Sliding Scale -) 1 vial SQ [facility]; Protocol Last Admin: 12/04/18 06:16 Dose: 6 units Insulin Detemir (Levemir Vial) 20 units SQ DAILY@0700 [facility] Last Admin: 12/04/18 06:17 Dose: 20 units Insulin Detemir (Levemir Vial) 36 units SQ HS [facility] Magnesium Oxide (Mag-Ox -) 400 mg PO BID [facility] Last Admin: 12/04/18 11:29 Dose: 400 mg Magnesium Sulfate (Magnesium Sulfate) 2 gm IVPB ONCE ONE Stop: 12/04/18 11:34 Metoclopramide HCl (Reglan -) 10 mg PO TIDAC [facility] Last Admin: 12/04/18 11:29 Dose: 10 mg Ondansetron HCl (Zofran Injection) 4 mg IVPUSH Q4H PRN PRN Reason: NAUSEA AND/OR VOMITING Last Admin: 11/25/18 06:39 Dose: 4 mg Oxycodone HCl (Roxicodone -) 5 mg PO Q4H PRN PRN Reason: Pain Level 6-10 BREAKTHROUGH Last Admin: 12/03/18 15:26 Dose: 5 mg Oxycodone HCl (Roxicodone -) 10 mg PO Q6H PRN PRN Reason: Pain Level 8 - 10 BREAKTHROUGH Last Admin: 12/01/18 16:35 Dose: 10 mg Propranolol HCl (Inderal La -) 60 mg PO DAILY [facility] Last Admin: 12/04/18 11:28 Dose: 60 mg Simethicone (Mylicon -) 80 mg PO TID [facility] Last Admin: 12/04/18 05:59 Dose: 80 mg 72 year old woman with hx of CKD, Nephrolithiasis, DM who presented with Abd pain secondary to SBO s/p surgical intervention with CHACHA. #Recurrent CHACHA #SBO s/p OR Renal function improved and stable continue to trend renal function and electrolytes while inpatient Thank you Ethan Ram DO
[2018-12-04] MEDS ORDERED: MAGNESIUM SULF 50% (8.12 MEQ/2 ML-1 GM VIAL) IVPB ONE (11:45)
[2018-12-04] MEDS: ACETAMINOPHEN 325 MG TABLET (FP) PO PRN ×2 (13:41→22:44)
[2018-12-04] MEDS: cloNIDine HCL 0.1 MG TABLET PO SCH ×2 (13:43→22:45)
--- NOTE | 2018-12-04 15:29 | PN ---
Progress Note, Physician History of Present Illness: POD14 s/p extensive lysis of intestinal adhesions for developing SBO, with suture repair of small RUQ incisional hernia from inside, with findings of previous intestinal reconstruction, likely hepaticojejunostomy, done years ago after post-cholecystectomy complications per pt. Pt postop had new onset of afib with RVR and was transferred to telemetry, treated with cardizem drip and prn's - now rate controlled on po meds. She is tolerating soft diabetic diet, but has been feeling full quickly, bloated and with periodic abdominal pain, not eating quite as much as normally at home. She is seen briefly this morning up to the bathroom and examined now in bed, just back from bathroom. She is voiding well and passing gas, having semisolid BMs, getting more formed (had dulcolax po last night). Ambulating periodically with walker. Pain managed with tylenol prn, had some about an hour ago. Using simethicone as well for gas, now standing. Started reglan before meals yesterday. Overall pain is less than it was. She reports drainage from the lower part of her incision between abhay overnight, and the nurse dressed it with an ABD pad. It was reported to me as somewhat reddish, yellowish, partly dark. - Current Medication List Current Medications: Active Medications Acetaminophen (Tylenol -) 650 mg PO Q6H PRN PRN Reason: Pain Level 4 - 10 Last Admin: 12/04/18 13:41 Dose: 650 mg Allopurinol (Zyloprim -) 100 mg PO DAILY [facility] Last Admin: 12/04/18 11:29 Dose: 100 mg Apixaban (Eliquis -) 5 mg PO BID [facility] Last Admin: 12/04/18 11:28 Dose: 5 mg Atorvastatin Calcium (Lipitor -) 10 mg PO HS [facility] Last Admin: 12/03/18 21:46 Dose: 10 mg Clonidine (Catapres -) 0.2 mg PO TID [facility] Last Admin: 12/04/18 13:43 Dose: 0.2 mg Diltiazem HCl (Cardizem Injection -) 10 mg IVPUSH Q4H PRN PRN Reason: TACHYCARDIA Last Admin: 11/26/18 17:37 Dose: 10 mg Diltiazem HCl (Cardizem Cd -) 360 mg PO DAILY [facility] Last Admin: 12/04/18 11:27 Dose: 360 mg Diphenhydramine HCl (Benadryl Injection -) 25 mg IVPB Q6H PRN PRN Reason: ITCHING Docusate Sodium (Colace -) 100 mg PO BID [facility] Last Admin: 12/04/18 11:27 Dose: 100 mg Insulin Aspart (Novolog Vial Sliding Scale -) 1 vial SQ ACHS [facility]; Protocol Last Admin: 12/04/18 12:49 Dose: 6 units Insulin Detemir (Levemir Vial) 20 units SQ DAILY@0700 [facility] Last Admin: 12/04/18 06:17 Dose: 20 units Insulin Detemir (Levemir Vial) 36 units SQ HS [facility] Magnesium Oxide (Mag-Ox -) 400 mg PO BID [facility] Last Admin: 12/04/18 11:29 Dose: 400 mg Metoclopramide HCl (Reglan -) 10 mg PO TIDAC [facility] Last Admin: 12/04/18 11:29 Dose: 10 mg Ondansetron HCl (Zofran Injection) 4 mg IVPUSH Q4H PRN PRN Reason: NAUSEA AND/OR VOMITING Last Admin: 11/25/18 06:39 Dose: 4 mg Oxycodone HCl (Roxicodone -) 5 mg PO Q4H PRN PRN Reason: Pain Level 6-10 BREAKTHROUGH Last Admin: 12/03/18 15:26 Dose: 5 mg Oxycodone HCl (Roxicodone -) 10 mg PO Q6H PRN PRN Reason: Pain Level 8 - 10 BREAKTHROUGH Last Admin: 12/01/18 16:35 Dose: 10 mg Propranolol HCl (Inderal La -) 60 mg PO DAILY [facility] Last Admin: 12/04/18 11:28 Dose: 60 mg Simethicone (Mylicon -) 80 mg PO TID [facility] Last Admin: 12/04/18 13:43 Dose: 80 mg - Objective Vital Signs: Vital Signs Temperature 98 F 12/04/18 13:55 Pulse Rate 83 12/04/18 13:55 Respiratory Rate 20 12/04/18 13:55 Blood Pressure 170/78 12/04/18 13:55 O2 Sat by Pulse Oximetry (%) 98 12/04/18 09:00 Vital Signs Period Temp Pulse Resp BP Sys/Pascual Pulse Ox Last 24 Hr 98 F-99 F 71-84 16-20 158-188/74-106 98-98 Intake & Output 12/03/18 12/04/18 12/04/18 23:59 07:59 15:59 Intake Total 480 100 Output Total 750 Balance -270 100 Intake: IVPB 100 Oral 480 Output: Urine 750 Void 750 Other: Voiding Method Toilet Toilet Toilet Constitutional: Yes: No Distress, Calm, Obese Eyes: Yes: Conjunctiva Clear, EOM Intact HENT: Yes: Atraumatic, Normocephalic Gastrointestinal: Yes: Soft, Abdomen, Obese, Distention (some tympany upper, little less upper distention noted), Tenderness (mild diffuse, a little more incisionally, no R/G) Extremities: No: Cool, Cyanosis Integumentary: Yes: Incision (midline w/abhay). No: Jaundice, Rash Wound/Incision: Yes: Clean/Dry, Well Approximated, George Intact, Open to air ( upper portion), Dressing Dry and Intact (on lower aspect - with dried pink drainage on ABD pad), Dressing Removed, George Removed (all abhay removed and steristrips left on most of incision where skin remains approximated), Draining (once abhay removed, with gentle massage, small bit of oily, yellow/ pink drainage started to seep from a spot several cm from lower pole of incision and also from staple hole at bottom - cotton-tipped applicator used to probe this spot and open skin with evacuation of moderate amount of thin, slightly cloudy, oily, mostly pink fluid), Other (skin over entire lower pole of incision, leaving opening 6 x 1cm, ~1.8cm deep, with some old clot , few small bits of pale/fibrinous tissue evacuated, as well as residual drainage; fascia intact and partially visible with suture intact; one tiny subcutaneous point oozing blood - stopped with wound packing; tract extends ~ 1cm or so superiorly just under skin level, whole site packed gently with one single opened 4x4 gauze). No: Reddened (faintly darker at margins of lower aspect of incision, but no carina erythema) Neurological: Yes: Alert, Oriented. No: Unsteady Gait Labs: CBC, BMP 12/04/18 05:30 12/04/18 05:30 Mg 1.7 Problem List - Problems (1) Intestinal adhesions with partial obstruction Assessment/Plan: POD14 s/p extensive lysis of adhesions and RUQ incisional hernia repair s/p likely hepaticojejunostomy in past with intestinal reconstruction - with dilated/stagnant loop of anastomotic area had small enterotomy repaired in proximal SB with small yellow fluid leakage, minimal contamination stable postop tolerating diabetic soft diet but with abd distention and pain, improving trend labs, replete lytes prn simethicone and reglan moving bowels more since dulcolax last night continue colace po pain meds prn - tylenol first line OOB to chair and ambulate with assist as often as able pt ambulation has improved to the point she may not need short-term rehab prior to discharge home PT following incision - abhay removed and steris placed lower pole opened with evacuation of fluid, probably was superficial infection, partly old hematoma will need VNS for wound care on d/c discussed with Ludmila Whaley Code(s): K56.51 - INTESTINAL ADHESIONS [BANDS], WITH PARTIAL OBSTRUCTION (2) Infection following a procedure, superficial incisional surgical site, initial encounter Assessment/Plan: lower pole of incision opened, packed with gauze measures about 6 x 1 x 1.8cm will change dressing tomorrow and daily while here nurse informed that outer dressing may be changed prn if it leaks through or requires replacement will require daily packing changes - saline-damp gauze, covered with folded dry gauze and tape to secure pt will need VNS on d/c home for ongoing wound care pt's daughter Izabela was at bedside and indicates she will be able to learn how to help with daily dressings/packings on days nurse cannot come (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 Mathew Code(s): I48.91 - UNSPECIFIED ATRIAL FIBRILLATION (5) Hypertension Assessment/Plan: cardio managing, on po meds Code(s): I10 - ESSENTIAL (PRIMARY) HYPERTENSION Qualifiers: Hypertension type: essential hypertension Qualified Code(s): I10 - Essential (primary) hypertension (6) Diabetes mellitus type 2 in obese Assessment/Plan: endo consulted maintenance regimen restarted med/endo to manage Code(s): E11.69 - TYPE 2 DIABETES MELLITUS WITH OTHER SPECIFIED COMPLICATION; E66.9 - OBESITY, UNSPECIFIED (7) S/P ureteral stent placement Assessment/Plan: urology following renal ultrasound done stent management per uro - pt may need laser lithotripsy with stent removal as outpatient, off anticoagulation Code(s): Z96.0 - PRESENCE OF UROGENITAL IMPLANTS (8) Gout Assessment/Plan: home med resumed Code(s): M10.9 - GOUT, UNSPECIFIED Qualifiers: Gout site: toe Gout etiology: unspecified cause Chronicity: unspecified Laterality: unspecified laterality Qualified Code(s): M10.9 - Gout, unspecified (9) CKD (chronic kidney disease) stage 3, GFR 30-59 ml/min Assessment/Plan: nephrology following BUN/Cr sideways recommend close monitoring of UOP Code(s): N18.3 - CHRONIC KIDNEY DISEASE, STAGE 3 (MODERATE)
[2018-12-04] MEDS: ATORVASTATIN CA 10 MG TABLET (FP) PO SCH (22:45)
--- NOTE | 2018-12-04 23:12 | PN ---
Progress Note, Physician Chief Complaint: high bp high sugars adrenal mass noted History of Present Illness: hyperglycemia,dm2,htn,sp ct evidence adrenal mass,tolerating diet well sugars remain elevated - Current Medication List Current Medications: Active Medications Acetaminophen (Tylenol -) 650 mg PO Q6H PRN PRN Reason: Pain Level 4 - 10 Last Admin: 12/04/18 22:44 Dose: 650 mg Allopurinol (Zyloprim -) 100 mg PO DAILY [facility] Last Admin: 12/04/18 11:29 Dose: 100 mg Apixaban (Eliquis -) 5 mg PO BID [facility] Last Admin: 12/04/18 22:45 Dose: 5 mg Atorvastatin Calcium (Lipitor -) 10 mg PO HS [facility] Last Admin: 12/04/18 22:45 Dose: 10 mg Clonidine (Catapres -) 0.2 mg PO TID [facility] Last Admin: 12/04/18 22:45 Dose: 0.2 mg Diltiazem HCl (Cardizem Injection -) 10 mg IVPUSH Q4H PRN PRN Reason: TACHYCARDIA Last Admin: 11/26/18 17:37 Dose: 10 mg Diltiazem HCl (Cardizem Cd -) 360 mg PO DAILY [facility] Last Admin: 12/04/18 11:27 Dose: 360 mg Diphenhydramine HCl (Benadryl Injection -) 25 mg IVPB Q6H PRN PRN Reason: ITCHING Docusate Sodium (Colace -) 100 mg PO BID [facility] Last Admin: 12/04/18 11:27 Dose: 100 mg Insulin Aspart (Novolog Vial Sliding Scale -) [address] [facility]; Protocol Last Admin: 12/04/18 22:46 Dose: 4 units Insulin Detemir (Levemir Vial) 20 units SQ DAILY@0700 [facility] Last Admin: 12/04/18 06:17 Dose: 20 units Insulin Detemir (Levemir Vial) 36 units SQ HS [facility] Last Admin: 12/04/18 22:45 Dose: 36 units Magnesium Oxide (Mag-Ox -) 400 mg PO BID [facility] Last Admin: 12/04/18 22:45 Dose: 400 mg Metoclopramide HCl (Reglan -) 10 mg PO TIDAC [facility] Last Admin: 12/04/18 17:36 Dose: 10 mg Ondansetron HCl (Zofran Injection) 4 mg IVPUSH Q4H PRN PRN Reason: NAUSEA AND/OR VOMITING Last Admin: 11/25/18 06:39 Dose: 4 mg Oxycodone HCl (Roxicodone -) 5 mg PO Q4H PRN PRN Reason: Pain Level 6-10 BREAKTHROUGH Last Admin: 12/03/18 15:26 Dose: 5 mg Oxycodone HCl (Roxicodone -) 10 mg PO Q6H PRN PRN Reason: Pain Level 8 - 10 BREAKTHROUGH Last Admin: 12/01/18 16:35 Dose: 10 mg Propranolol HCl (Inderal La -) 60 mg PO DAILY [facility] Last Admin: 12/04/18 11:28 Dose: 60 mg Simethicone (Mylicon -) 80 mg PO TID [facility] Last Admin: 12/04/18 22:45 Dose: 80 mg - Objective Vital Signs: Vital Signs Temperature 98.4 F 12/04/18 20:35 Pulse Rate 62 12/04/18 20:35 Respiratory Rate 20 12/04/18 20:35 Blood Pressure 147/78 12/04/18 20:35 O2 Sat by Pulse Oximetry (%) 98 12/04/18 09:00 Constitutional: Yes: Well Nourished Eyes: Yes: EOM Intact HENT: Yes: Normocephalic Neck: Yes: Trachea Midline Cardiovascular: Yes: Regular Rate and Rhythm Respiratory: Yes: CTA Bilaterally Gastrointestinal: Yes: Normal Bowel Sounds ...Rectal Exam: Yes: Deferred Edema: No Peripheral Pulses WNL: No Integumentary: Yes: WNL Neurological: Yes: Alert, Oriented Labs: CBC, BMP 12/04/18 05:30 12/04/18 05:30 INR, PTT INR 1.19 (0.82-1.09) 11/16/18 14:35 Problem List - Problems (1) Adrenal adenoma Code(s): D35.00 - BENIGN NEOPLASM OF UNSPECIFIED ADRENAL GLAND (2) Atrial fibrillation with RVR Code(s): I48.91 - UNSPECIFIED ATRIAL FIBRILLATION (3) CKD (chronic kidney disease) stage 3, GFR 30-59 ml/min Code(s): N18.3 - CHRONIC KIDNEY DISEASE, STAGE 3 (MODERATE) (4) Constipation Code(s): K59.00 - CONSTIPATION, UNSPECIFIED (5) Diabetes mellitus type 2 in obese Code(s): E11.69 - TYPE 2 DIABETES MELLITUS WITH OTHER SPECIFIED COMPLICATION; E66.9 - OBESITY, UNSPECIFIED (6) Distended abdomen Code(s): R14.0 - ABDOMINAL DISTENSION (GASEOUS) (7) Diverticula of colon Code(s): K57.30 - DVRTCLOS OF LG INT W/O PERFORATION OR ABSCESS W/O BLEEDING (8) Generalized abdominal pain Code(s): R10.84 - GENERALIZED ABDOMINAL PAIN Assessment/Plan Current Active Problems Adrenal adenoma (Acute) Atrial fibrillation with RVR (Acute) CKD (chronic kidney disease) stage 3, GFR 30-59 ml/min (Acute) Constipation (Acute) Diabetes mellitus type 2 in obese (Acute) Distended abdomen (Acute) Diverticula of colon (Acute) Generalized abdominal pain (Acute) Gout (Acute) Head ache (Acute) Headache (Acute) History of cholecystectomy (Acute) History of common bile duct surgery (Acute) Hypertension (Acute) Hypomagnesemia (Acute) Ileitis (Acute) Incisional hernia, without obstruction or gangrene (Acute) Infection following a procedure, superficial incisional surgical site, initial encounter (Acute) Intestinal adhesions with partial obstruction (Acute) New onset a-fib (Acute) Pneumobilia (Acute) RUQ pain (Acute) S/P ureteral stent placement (Acute) Small bowel obstruction (Acute) Abnormal Lab Results 12/01/18 12/04/18 12/04/18 12:20 05:30 05:30 WBC 10.6 H RBC 3.20 L Hgb 8.5 L Hct 25.0 L MCV 78.1 L RDW 19.7 H Plt Count 484 H Absolute Neuts (auto) 8.4 H Lymphocytes % 7.8 L D Anion Gap 6 L BUN 20 H Creatinine 1.4 H Random Glucose 286 H Calcium 8.2 L Magnesium 1.7 L AST 8 L ALT 8 L Albumin 1.9 L Crossmatch See Detail Laboratory Results - last 24 hr 12/01/18 12/04/18 12/04/18 12:20 05:30 05:30 WBC 10.6 H RBC 3.20 L Hgb 8.5 L Hct 25.0 L MCV 78.1 L MCH 26.5 MCHC 33.9 RDW 19.7 H Plt Count 484 H MPV 8.7 Absolute Neuts (auto) 8.4 H Neutrophils % 80.0 Lymphocytes % 7.8 L D Monocytes % 10.2 Eosinophils % 0.8 Basophils % 1.2 Nucleated RBC % 0 Sodium 137 Potassium 4.6 Chloride 101 Carbon Dioxide 31 Anion Gap 6 L BUN 20 H Creatinine 1.4 H Creat Clearance w eGFR 36.76 POC Glucometer Random Glucose 286 H Calcium 8.2 L Phosphorus 3.2 Magnesium 1.7 L Total Bilirubin 0.6 AST 8 L ALT 8 L Alkaline Phosphatase 96 Total Protein 6.7 Albumin 1.9 L Blood Type B POSITIVE Antibody Screen Negative Crossmatch See Detail 12/04/18 12/04/18 12/04/18 05:31 11:35 17:33 WBC RBC Hgb Hct MCV MCH MCHC RDW Plt Count MPV Absolute Neuts (auto) Neutrophils % Lymphocytes % Monocytes % Eosinophils % Basophils % Nucleated RBC % Sodium Potassium Chloride Carbon Dioxide Anion Gap BUN Creatinine Creat Clearance w eGFR POC Glucometer 269 281 303 Random Glucose Calcium Phosphorus Magnesium Total Bilirubin AST ALT Alkaline Phosphatase Total Protein Albumin Blood Type Antibody Screen Crossmatch 12/04/18 21:31 WBC RBC Hgb Hct MCV MCH MCHC RDW Plt Count MPV Absolute Neuts (auto) Neutrophils % Lymphocytes % Monocytes % Eosinophils % Basophils % Nucleated RBC % Sodium Potassium Chloride Carbon Dioxide Anion Gap BUN Creatinine Creat Clearance w eGFR POC Glucometer 225 Random Glucose Calcium Phosphorus Magnesium Total Bilirubin AST ALT Alkaline Phosphatase Total Protein Albumin Blood Type Antibody Screen Crossmatch plan: dexamethasone suppression test 24 hr urine vma
[2018-12-05] MEDS: cloNIDine HCL 0.1 MG TABLET PO SCH ×3 (06:32→21:48)
[2018-12-05] MEDS: METOCLOPRAMIDE HCL 10 MG TABLET (FP) PO SCH ×3 (06:33→17:09)
[2018-12-05] MEDS: INSULIN SLIDING SCALE (NOVOLOG) 1 VIAL SQ SCH ×4 (06:33→23:00)
[2018-12-05] MEDS: SIMETHICONE 80 MG TAB.CHEW (FP) PO SCH ×3 (06:33→23:00)
[2018-12-05] MEDS ORDERED: INSULIN (LEVEMIR) 100 UNITS/ML UNITS SQ SCH ×2 (07:00→17:09)
[2018-12-05] MEDS: ACETAMINOPHEN 325 MG TABLET (FP) PO PRN ×3 (09:10→21:49)
[2018-12-05 09:43] LABS: EOS % 2.2 % (0-4.5); HEMATOCRIT 26.6 % (32.4-45.2); HEMOGLOBIN 8.6 GM/dL (10.7-15.3); LYMPH % 12.9 % (8-40); MCH 25.9 pg (25.7-33.7); MCHC 32.3 g/dl (32.0-36.0); MEAN CELL VOLUME 80.2 fl (80-96); MEAN PLT VOLUME 8.4 fl (7.5-11.1); MONO % 14.3 % (3.8-10.2); NEUT % 69.6 % (42.8-82.8); PLATELET COUNT 567 K/MM3 (134-434); RBC 3.31 M/mm3 (3.60-5.2); RDW 19.5 % (11.6-15.6); WHITE BLOOD COUNT 11.9 K/mm3 (4.0-10.0)
[2018-12-05 10:24] LABS: ALBUMIN 1.9 g/dl (3.4-5.0); ALK PHOS 95 U/L (45-117); ANION GAP 7 MMOL/L (8-16); BILIRUBIN,TOTAL 0.4 mg/dL (0.2-1); BLOOD UREA NITROGEN 21 mg/dL (7-18); CALCIUM 7.7 mg/dL (8.5-10.1); CHLORIDE 101 mmol/L (98-107); CO2 31 mmol/L (21-32); CREATININE 1.6 mg/dL (0.55-1.3); GLUCOSE,RANDOM 90 mg/dL (74-106); MAGNESIUM 2.2 mg/dL (1.8-2.4); PHOSPHOROUS 4.2 mg/dL (2.5-4.9); POTASSIUM 4.1 mmol/L (3.5-5.1); SGOT/AST 14 U/L (15-37); SGPT/ALT 10 U/L (13-61); SODIUM 139 mmol/L (136-145); TOT PROT 6.6 g/dl (6.4-8.2)
[2018-12-05] MEDS: ALLOPURINOL 100 MG TABLET (FP) PO SCH (10:50)
[2018-12-05] MEDS: APIXABAN 5 MG TABLET PO SCH ×2 (10:50→21:49)
[2018-12-05] MEDS: MAGNESIUM OXIDE 400 MG TABLET (FP) PO SCH ×2 (10:50→21:49)
[2018-12-05] MEDS: DOCUSATE SODIUM 100 MG CAPSULE (FP) PO SCH ×2 (10:50→21:49)
--- NOTE | 2018-12-05 12:31 | PN ---
Progress Note (short form) - Note Progress Note: s: no cp sob palps dizzy o: Vital Signs Period Temp Pulse Resp BP Sys/Pascual Pulse Ox Last 24 Hr 97.7 F-98.4 F 58-83 20-20 117-170/58-78 95-96 Constitutional: Yes: Well Nourished, No Distress, Calm Eyes: Yes: Conjunctiva Clear Respiratory: Yes: Regular, CTA Bilaterally Gastrointestinal: Yes: Tenderness Cardiovascular: Yes: irreg JVD: No Heart Sounds: Yes: S1, S2 Murmur: No: Systolic Murmur Extremities: No: Cold Edema: No Peripheral Pulses: 2+ Left Doralis Pedis, 2+ Right Dorsalis Pedis Integumentary: No: Jaundice Neurological: Yes: Alert, Oriented Psychiatric: No: Agitated Current Medications Generic Name Dose Route Start Last Admin Trade Name Freq PRN Reason Stop Dose Admin Acetaminophen 650 mg 11/29/18 11:22 12/05/18 09:10 Tylenol - PO 650 mg Q6H PRN Administration Pain Level 4 - 10 Allopurinol 100 mg 11/30/18 10:00 12/05/18 10:50 Zyloprim - PO 100 mg DAILY [facility] Administration Apixaban 5 mg 12/01/18 10:00 12/05/18 10:50 Eliquis - PO 5 mg BID [facility] Administration Atorvastatin Calcium 10 mg 11/29/18 22:00 12/04/18 22:45 Lipitor - PO 10 mg HS [facility] Administration Clonidine 0.2 mg 12/04/18 14:00 12/05/18 06:32 Catapres - PO 0.2 mg TID [facility] Administration Diltiazem HCl 10 mg 11/22/18 17:18 11/26/18 17:37 Cardizem Injection - IVPUSH 10 mg Q4H PRN Administration TACHYCARDIA Diltiazem HCl 360 mg 12/03/18 12:00 12/05/18 10:49 Cardizem Cd - PO 360 mg DAILY [facility] Administration Diphenhydramine HCl 25 mg 11/26/18 17:12 Benadryl Injection - IVPB Q6H PRN ITCHING Docusate Sodium 100 mg 11/30/18 22:00 12/05/18 10:50 Colace - PO 100 mg BID [facility] Administration Insulin Aspart 1 vial 11/20/18 16:30 12/05/18 12:23 Novolog Vial Sliding Scale - SQ Not Given ACHS [facility] Protocol Insulin Detemir 36 units 12/04/18 10:49 12/04/18 22:45 Levemir Vial SQ 36 units HS [facility] Administration Insulin Detemir 30 units 12/05/18 07:00 12/05/18 06:33 Levemir Vial SQ Not Given DAILY@0700 [facility] Magnesium Oxide 400 mg 12/04/18 11:15 12/05/18 10:50 Mag-Ox - PO 400 mg BID [facility] Administration Metoclopramide HCl 10 mg 12/03/18 07:00 12/05/18 10:50 Reglan - PO 10 mg TIDAC [facility] Administration Ondansetron HCl 4 mg 11/20/18 12:08 11/25/18 06:39 Zofran Injection IVPUSH 4 mg Q4H PRN Administration NAUSEA AND/OR VOMITING Oxycodone HCl 5 mg 11/29/18 11:15 12/03/18 15:26 Roxicodone - PO 5 mg Q4H PRN Administration Pain Level 6-10 BREAKTHROUGH Oxycodone HCl 10 mg 11/29/18 11:15 12/01/18 16:35 Roxicodone - PO 10 mg Q6H PRN Administration Pain Level 8 - 10 BREAKTHROUGH Propranolol HCl 60 mg 11/30/18 10:00 12/05/18 10:50 Inderal La - PO 60 mg DAILY [facility] Administration Simethicone 80 mg 12/03/18 22:00 12/05/18 06:33 Mylicon - PO 80 mg TID [facility] Administration CBC, BMP 12/05/18 09:20 12/05/18 09:20 Assessment/Plan EKG: initial sinus, LVH, first deg AVB EKG 11/22 afib with RVR rate 135 bpm echo 11/2016 LV mildly dilated, nl LV function, sigmoid septum, RV nl, LA severely dilated, RA mildly enlarged, mild MR, mild TR, at least mild pulm HTN, RVSP at least 42 mmHg tele: sr afib - in post op setting after ex lap, PAN - 11/25: converted spontaneously now to sinus - 11/26: overnight converted back to afib with RVR, dilt gtt was started, initially poor IV access now has been running, no improvement with additional lopressor 5 mg IV this morning. replete K and Mg, digoxin 0.125 mg IV x 1 ordered, cont dilt gtt - 11/27: started diltiazem 60 mg PO Q6H, increase to 90 mg Q6H, start propranolol 20 mg Q6H, uptitrate as tolerated, wean dilt gtt as tolerated -11/28-7: rate controlled on po meds. eliquis started. -12/02-11: sinus. continue diltiazem CD 360 mg daily, propranolol LA 60 mg daily SBO s/p ex lap, PAN - doing well post op from surgical pov HTN -held clonidine here, given titrating up AVN blockers for new afib -BP had been stable - now elevated, at home was on amlodipine 10 mg daily, lisinopril 40 mg BID, chlorthalidone 25 mg daily and clonidine 0.2 mg TID - off amlodipine, now on diltiazem, continue - hold lisinopril, chlorthalidone in setting of CHACHA - restart clonidine 0.2 mg TID pulm HTN, chronic diastolic HF - mild to mod, likely 2/2 diastolic CHF - appears euvolemic DM - manage per primary HLD - continue statin CHACHA on CKD -improving with ivfs -renal following
--- NOTE | 2018-12-05 13:30 | PN ---
Progress Note, Physician Chief Complaint: patient seen and examined - Current Medication List Current Medications: Active Medications Acetaminophen (Tylenol -) 650 mg PO Q6H PRN PRN Reason: Pain Level 4 - 10 Last Admin: 12/05/18 09:10 Dose: 650 mg Allopurinol (Zyloprim -) 100 mg PO DAILY [facility] Last Admin: 12/05/18 10:50 Dose: 100 mg Amino Acids (Prosource No Carb Liquid Pkt) 30 ml PO BID@0800,1730 [facility] Apixaban (Eliquis -) 5 mg PO BID [facility] Last Admin: 12/05/18 10:50 Dose: 5 mg Atorvastatin Calcium (Lipitor -) 10 mg PO HS [facility] Last Admin: 12/04/18 22:45 Dose: 10 mg Clonidine (Catapres -) 0.2 mg PO TID [facility] Last Admin: 12/05/18 06:32 Dose: 0.2 mg Diltiazem HCl (Cardizem Injection -) 10 mg IVPUSH Q4H PRN PRN Reason: TACHYCARDIA Last Admin: 11/26/18 17:37 Dose: 10 mg Diltiazem HCl (Cardizem Cd -) 360 mg PO DAILY [facility] Last Admin: 12/05/18 10:49 Dose: 360 mg Diphenhydramine HCl (Benadryl Injection -) 25 mg IVPB Q6H PRN PRN Reason: ITCHING Docusate Sodium (Colace -) 100 mg PO BID [facility] Last Admin: 12/05/18 10:50 Dose: 100 mg Insulin Aspart (Novolog Vial Sliding Scale -) 1 vial SQ [facility]; Protocol Last Admin: 12/05/18 12:23 Dose: Not Given Insulin Detemir (Levemir Vial) 36 units SQ [facility] Last Admin: 12/04/18 22:45 Dose: 36 units Insulin Detemir (Levemir Vial) 30 units SQ DAILY@0700 [facility] Last Admin: 12/05/18 06:33 Dose: Not Given Magnesium Oxide (Mag-Ox -) 400 mg PO BID [facility] Last Admin: 12/05/18 10:50 Dose: 400 mg Metoclopramide HCl (Reglan -) 10 mg PO TIDAC [facility] Last Admin: 12/05/18 10:50 Dose: 10 mg Ondansetron HCl (Zofran Injection) 4 mg IVPUSH Q4H PRN PRN Reason: NAUSEA AND/OR VOMITING Last Admin: 11/25/18 06:39 Dose: 4 mg Oxycodone HCl (Roxicodone -) 5 mg PO Q4H PRN PRN Reason: Pain Level 6-10 BREAKTHROUGH Last Admin: 12/03/18 15:26 Dose: 5 mg Oxycodone HCl (Roxicodone -) 10 mg PO Q6H PRN PRN Reason: Pain Level 8 - 10 [facility]AK[facility]ROUGH Last Admin: 12/01/18 16:35 Dose: 10 mg Propranolol HCl (Inderal La -) 60 mg PO DAILY [facility] Last Admin: 12/05/18 10:50 Dose: 60 mg Simethicone (Mylicon -) 80 mg PO TID [facility] Last Admin: 12/05/18 06:33 Dose: 80 mg - Objective Vital Signs: Vital Signs Temperature 97.7 F 12/05/18 06:00 Pulse Rate 76 12/05/18 11:58 Respiratory Rate 20 12/05/18 06:00 Blood Pressure 117/58 L 12/05/18 06:00 O2 Sat by Pulse Oximetry (%) 96 12/05/18 11:58 Constitutional: Yes: Calm Cardiovascular: Yes: Regular Rate and Rhythm, S1, S2 Respiratory: Yes: CTA Bilaterally Gastrointestinal: Yes: Soft, Other (dressing) Neurological: Yes: Alert Labs: CBC, BMP 12/05/18 09:20 12/05/18 09:20 INR, PTT INR 1.19 (0.82-1.09) 11/16/18 14:35 Problem List - Problems (1) Headache Assessment/Plan: ct head no acute infacts neurology- propanolol for JEREZ Code(s): R51 - HEADACHE (2) Abdominal pain Assessment/Plan: Note: Operative Date: 11/20/18 Pre-Operative Diagnosis: small bowel obstruction, incisional hernia Operation: laparotomy with extensive lysis of adhesions (2 hours), suture repair of right upper quadrant incisional hernia iv zosyn Findings: mesh (Goretex?) in midline - partially divided, left in situ; matted loops of small bowel in right abdomen, incisional hernia RUQ and right lateral abdomen, evidence of previous Jackelin-en-Y bowel reconstruction with dilation of stagnant loop; tiny enterotomy made in proximal SB in RUQ, repaired with sutures with minimal leakage; no resection performed Post-Operative Diagnosis: Other (same as preop with stagnant Jackelin-en-Y bowel loop in RUQ, extensive intestinal adhesions) Surgeon: Neal Rodney Fitter Mechanic: Jace Piña Anesthesiologist/LAMINATING MACHINE FEEDER: Chuckie Nguyen Anesthesia: General, Local (20ML 0.5% marcaine) Specimens Removed: no resection Estimated Blood Loss (mls): 100 Drains & Tubes with Location: preop [place] NGT; [place] placed and left Drains, Volume Out (mls): 500 (UOP) Fluid Volume Replaced (mls): 1,800 (crystalloid) Operative Report Dictated: Yes dvt ppx soft diet stool softner reglan AC meals simethicone monitor mark Code(s): R10.9 - UNSPECIFIED ABDOMINAL PAIN Qualifiers: Abdominal location: unspecified location Qualified Code(s): R10.9 - Unspecified abdominal pain (3) Atrial fibrillation with RVR Assessment/Plan: started on propanolol, cardizem eliquis Code(s): I48.91 - UNSPECIFIED ATRIAL FIBRILLATION (4) S/P ureteral stent placement Assessment/Plan: seen by urology needs laser lithotripsy as an outpatient Code(s): Z96.0 - PRESENCE OF UROGENITAL IMPLANTS (5) Diabetes mellitus type 2 in obese Assessment/Plan: levemir dose per endocrine consult noted Code(s): E11.69 - TYPE 2 DIABETES MELLITUS WITH OTHER SPECIFIED COMPLICATION; E66.9 - OBESITY, UNSPECIFIED (6) Adrenal adenoma Assessment/Plan: dexa supression test 24 hr VMA Code(s): D35.00 - BENIGN NEOPLASM OF UNSPECIFIED ADRENAL GLAND
--- NOTE | 2018-12-05 14:57 | PN ---
Progress Note (short form) - Note Progress Note: Renal follow up for CHACHA Pt seen and examined in the [facility] no acute complaints reports she is not drinking much fluid and eating less then half of her meals no sob, cp, abd pain, N/V/D Vital Signs Temperature 98.6 F 12/05/18 13:40 Pulse Rate 64 12/05/18 13:40 Respiratory Rate 18 12/05/18 13:40 Blood Pressure 141/72 12/05/18 13:40 O2 Sat by Pulse Oximetry (%) 96 12/05/18 11:58 Intake & Output 12/02/18 12/03/18 12/04/18 12/05/18 23:59 23:59 23:59 23:59 Intake Total 280 600 700 10 Output Total 700 2550 300 Balance -420 -1950 400 10 NAD RRR CTA slight abd tenderness No Le edema CBC, BMP 12/05/18 09:20 12/05/18 09:20 Current Medications Acetaminophen (Tylenol -) 650 mg PO Q6H PRN PRN Reason: Pain Level 4 - 10 Last Admin: 12/05/18 09:10 Dose: 650 mg Allopurinol (Zyloprim -) 100 mg PO DAILY [facility] Last Admin: 12/05/18 10:50 Dose: 100 mg Amino Acids (Prosource No Carb Liquid Pkt) 30 ml PO BID@0800,1730 [facility] Apixaban (Eliquis -) 5 mg PO BID [facility] Last Admin: 12/05/18 10:50 Dose: 5 mg Atorvastatin Calcium (Lipitor -) 10 mg PO HS [facility] Last Admin: 12/04/18 22:45 Dose: 10 mg Clonidine (Catapres -) 0.2 mg PO TID [facility] Last Admin: 12/05/18 13:35 Dose: 0.2 mg Diltiazem HCl (Cardizem Injection -) 10 mg IVPUSH Q4H PRN PRN Reason: TACHYCARDIA Last Admin: 11/26/18 17:37 Dose: 10 mg Diltiazem HCl (Cardizem Cd -) 360 mg PO DAILY [facility] Last Admin: 12/05/18 10:49 Dose: 360 mg Diphenhydramine HCl (Benadryl Injection -) 25 mg IVPB Q6H PRN PRN Reason: ITCHING Docusate Sodium (Colace -) 100 mg PO BID [facility] Last Admin: 12/05/18 10:50 Dose: 100 mg Insulin Aspart (Novolog Vial Sliding Scale -) 1 vial SQ [facility]S [facility]; Protocol Last Admin: 12/05/18 12:23 Dose: Not Given Insulin Detemir (Levemir Vial) 36 units SQ HS [facility] Last Admin: 12/04/18 22:45 Dose: 36 units Insulin Detemir (Levemir Vial) 30 units SQ DAILY@0700 [facility] Last Admin: 12/05/18 06:33 Dose: Not Given Magnesium Oxide (Mag-Ox -) 400 mg PO BID [facility] Last Admin: 12/05/18 10:50 Dose: 400 mg Metoclopramide HCl (Reglan -) 10 mg PO TIDAC [facility] Last Admin: 12/05/18 10:50 Dose: 10 mg Ondansetron HCl (Zofran Injection) 4 mg IVPUSH Q4H PRN PRN Reason: NAUSEA AND/OR VOMITING Last Admin: 11/25/18 06:39 Dose: 4 mg Oxycodone HCl (Roxicodone -) 5 mg PO Q4H PRN PRN Reason: Pain Level 6-10 BREAKTHROUGH Last Admin: 12/03/18 15:26 Dose: 5 mg Oxycodone HCl (Roxicodone -) 10 mg PO Q6H PRN PRN Reason: Pain Level 8 - 10 BREAKTHROUGH Last Admin: 12/01/18 16:35 Dose: 10 mg Propranolol HCl (Inderal La -) 60 mg PO DAILY [facility] Last Admin: 12/05/18 10:50 Dose: 60 mg Simethicone (Mylicon -) 80 mg PO TID [facility] Last Admin: 12/05/18 13:35 Dose: 80 mg 72 year old woman with hx of CKD, Nephrolithiasis, DM who presented with Abd pain secondary to SBO s/p surgical intervention with CHACHA. #Recurrent CHACHA #SBO s/p OR Cr slowly trending up over the last 2 days. Likely some hypovolemia given poor oral intake. Encouraged increased oral hydration. Will monitor renal function for now. Thank you Ethan Ram DO
--- NOTE | 2018-12-05 16:24 | PN ---
Progress Note, Physician History of Present Illness: POD15 s/p extensive lysis of intestinal adhesions for developing SBO, with suture repair of small RUQ incisional hernia from inside, with findings of previous intestinal reconstruction, likely hepaticojejunostomy, done years ago after post-cholecystectomy complications per pt. Pt postop had new onset of afib with RVR and was transferred to telemetry, treated with cardizem drip and prn's - now rate controlled on po meds. She is tolerating soft diabetic diet, but has been feeling full and bloated and with periodic abdominal pain/gas pain, not eating as much as normally at home. She is seen and examined in bed. She is voiding and passing gas, had a small BM earlier. Was up walking before, then sitting, but had bad right-sided gas pain, and laid down. Just before I came, she states she turned over side to side and was able to pass "a lot of gas." She is feeling better from that. Pain managed with tylenol prn, but she thinks sometimes she waits too long to take it. Also on standing simethicone and reglan. She plans to get up and walk again soon. Has some regular soda at bedside, which they were watering down. Yesterday, she had spontaneous drainage from the lower aspect of her incision. [place] were removed, and the lower pole opened to evacuate some pinkish, slightly cloudy fluid and small clots. Wound is now being packed daily with gauze, and VNS will be arranged for after d/c for dressing changes daily with family help. - Current Medication List Current Medications: Active Medications Acetaminophen (Tylenol -) 650 mg PO Q6H PRN PRN Reason: Pain Level 4 - 10 Last Admin: 12/05/18 15:20 Dose: 650 mg Allopurinol (Zyloprim -) 100 mg PO DAILY [facility] Last Admin: 12/05/18 10:50 Dose: 100 mg Amino Acids (Prosource No Carb Liquid Pkt) 30 ml PO BID@0800,1730 [facility] Apixaban (Eliquis -) 5 mg PO BID [facility] Last Admin: 12/05/18 10:50 Dose: 5 mg Atorvastatin Calcium (Lipitor -) 10 mg PO HS [facility] Last Admin: 12/04/18 22:45 Dose: 10 mg Clonidine (Catapres -) 0.2 mg PO TID [facility] Last Admin: 12/05/18 13:35 Dose: 0.2 mg Diltiazem HCl (Cardizem Injection -) 10 mg IVPUSH Q4H PRN PRN Reason: TACHYCARDIA Last Admin: 11/26/18 17:37 Dose: 10 mg Diltiazem HCl (Cardizem Cd -) 360 mg PO DAILY [facility] Last Admin: 12/05/18 10:49 Dose: 360 mg Diphenhydramine HCl (Benadryl Injection -) 25 mg IVPB Q6H PRN PRN Reason: ITCHING Docusate Sodium (Colace -) 100 mg PO BID [facility] Last Admin: 12/05/18 10:50 Dose: 100 mg Insulin Aspart (Novolog Vial Sliding Scale -) 1 vial SQ [facility]; Protocol Last Admin: 12/05/18 12:23 Dose: Not Given Insulin Detemir (Levemir Vial) 36 units SQ HS [facility] Last Admin: 12/04/18 22:45 Dose: 36 units Insulin Detemir (Levemir Vial) 30 units SQ DAILY@0700 [facility] Last Admin: 12/05/18 06:33 Dose: Not Given Magnesium Oxide (Mag-Ox -) 400 mg PO BID [facility] Last Admin: 12/05/18 10:50 Dose: 400 mg Metoclopramide HCl (Reglan -) 10 mg PO TIDAC [facility] Last Admin: 12/05/18 10:50 Dose: 10 mg Ondansetron HCl (Zofran Injection) 4 mg IVPUSH Q4H PRN PRN Reason: NAUSEA AND/OR VOMITING Last Admin: 11/25/18 06:39 Dose: 4 mg Oxycodone HCl (Roxicodone -) 5 mg PO Q4H PRN PRN Reason: Pain Level 6-10 BREAKTHROUGH Last Admin: 12/03/18 15:26 Dose: 5 mg Oxycodone HCl (Roxicodone -) 10 mg PO Q6H PRN PRN Reason: Pain Level 8 - 10 BREAKTHROUGH Last Admin: 12/01/18 16:35 Dose: 10 mg Propranolol HCl (Inderal La -) 60 mg PO DAILY [facility] Last Admin: 12/05/18 10:50 Dose: 60 mg Simethicone (Mylicon -) 80 mg PO TID [facility] Last Admin: 12/05/18 13:35 Dose: 80 mg - Objective Vital Signs: Vital Signs Temperature 98.6 F 12/05/18 13:40 Pulse Rate 64 12/05/18 13:40 Respiratory Rate 18 12/05/18 13:40 Blood Pressure 141/72 12/05/18 13:40 O2 Sat by Pulse Oximetry (%) 96 12/05/18 11:58 Vital Signs Period Temp Pulse Resp BP Sys/Pascual Pulse Ox Last 24 Hr 97.7 F-98.6 F 58-76 18-20 117-150/58-78 95-96 Intake & Output 12/05/18 12/05/18 12/05/18 07:59 15:59 23:59 Intake Total 10 Balance 10 Intake: IV 10 saline lock 10 Other: Voiding Method Toilet Toilet Constitutional: Yes: No Distress, Calm, Obese Eyes: Yes: Conjunctiva Clear, EOM Intact HENT: Yes: Atraumatic, Normocephalic Gastrointestinal: Yes: Normal Bowel Sounds, Soft, Abdomen, Obese, Distention ( with tympany), Tenderness (some at right side, and mild lower incisional). No: Tenderness, Rebound Extremities: No: Cool, Cyanosis Integumentary: Yes: Incision (midline). No: Jaundice, Rash Wound/Incision: Yes: Clean/Dry, Well Approximated (upper incision healing), Steri Strips (above level of wound), Dressing Dry and Intact (was reinforced by nursing, inner dressing with strikethrough, serosang), Dressing Removed (and replaced with saline-damp 4x4 gauze (single), covered with gauze and tape), Unapproximated (lower pole of wound - clean, pink-based, early granulation present, with small area at base where fascia and suture visible, intact). No: Reddened, Bleeding Neurological: Yes: Alert, Oriented Labs: CBC, BMP 12/05/18 09:20 12/05/18 09:20 Phos 4.2 Mg 2.2 lytes normal BUN/Cr up a bit Problem List - Problems (1) Intestinal adhesions with partial obstruction Assessment/Plan: POD15 s/p extensive lysis of adhesions and RUQ incisional hernia repair s/p likely hepaticojejunostomy in past with intestinal reconstruction - with dilated/stagnant loop of anastomotic area had small enterotomy repaired in proximal SB with small yellow fluid leakage, minimal contamination stable postop tolerating diabetic soft diet but with abd distention and gas pain, marginal po intake at times advised to avoid carbonated beverages for now, and reminded to stay with diabetic choices moving bowels and passing gas simethicone and reglan, colace trend labs, replete lytes prn po pain meds prn - tylenol first line OOB to chair and ambulate with assist as often as able pt ambulation has improved to the point she may not need short-term rehab prior to discharge home PT following lower pole of incision opened and being packed daily will need VNS for wound care on d/c will try to do with pt's daughter tomorrow if she is available discussed with Dr. Medrano Code(s): K56.51 - INTESTINAL ADHESIONS [BANDS], WITH PARTIAL OBSTRUCTION (2) Infection following a procedure, superficial incisional surgical site, initial encounter Assessment/Plan: lower pole of incision open, packed with saline-damp gauze wound clean, beginning to granulate daily packing changes - saline-damp gauze, covered with folded dry gauze and tape to secure pt will need VNS on d/c home for ongoing wound care pt's daughter Izabela indicated she will be able to learn how to help with daily dressings/packings on days nurse cannot come pt lives with brother, who will not be able to do so instructions in d/c plan Code(s): T81.41XA - INFCT FOL A PROC, SUPERFIC INCISIONAL SURGICAL SITE, INIT (3) Incisional hernia, without obstruction or gangrene Code(s): K43.2 - INCISIONAL HERNIA WITHOUT OBSTRUCTION OR GANGRENE (4) Atrial fibrillation with RVR Assessment/Plan: cardiology following HR controlled on po meds keep lytes repleted on Eliquis Code(s): I48.91 - UNSPECIFIED ATRIAL FIBRILLATION (5) Hypertension Assessment/Plan: cardio managing, on po meds Code(s): I10 - ESSENTIAL (PRIMARY) HYPERTENSION Qualifiers: Hypertension type: essential hypertension Qualified Code(s): I10 - Essential (primary) hypertension (6) Diabetes mellitus type 2 in obese Assessment/Plan: endo following maintenance regimen started - levemir ordered for AM and HS sugars much less this morning and midday med/endo to manage Code(s): E11.69 - TYPE 2 DIABETES MELLITUS WITH OTHER SPECIFIED COMPLICATION; E66.9 - OBESITY, UNSPECIFIED (7) S/P ureteral stent placement Assessment/Plan: urology following renal ultrasound done stent management per uro - pt may need laser lithotripsy with stent removal as outpatient, off anticoagulation Code(s): Z96.0 - PRESENCE OF UROGENITAL IMPLANTS (8) Gout Assessment/Plan: home med resumed Code(s): M10.9 - GOUT, UNSPECIFIED Qualifiers: Gout site: toe Gout etiology: unspecified cause Chronicity: unspecified Laterality: unspecified laterality Qualified Code(s): M10.9 - Gout, unspecified (9) CKD (chronic kidney disease) stage 3, GFR 30-59 ml/min Assessment/Plan: nephrology following BUN/Cr up a bit recommend close monitoring of UOP, po intake trend labs Code(s): N18.3 - CHRONIC KIDNEY DISEASE, STAGE 3 (MODERATE)
[2018-12-05] MEDS: AMINO ACIDS/PROTEIN HYDROLYS 30 ML LIQUID.PKT PO SCH (17:09)
[2018-12-05] MEDS: INSULIN (LEVEMIR) 100 UNITS/ML UNITS SQ SCH (17:38)
[2018-12-05] MEDS: oxyCODONE HCL 5 MG TABLET PO PRN (17:57)
[2018-12-05] MEDS: ATORVASTATIN CA 10 MG TABLET (FP) PO SCH (21:49)
[2018-12-06] MEDS: INSULIN SLIDING SCALE (NOVOLOG) 1 VIAL SQ SCH ×4 (06:08→22:53)
[2018-12-06] MEDS: METOCLOPRAMIDE HCL 10 MG TABLET (FP) PO SCH ×3 (06:12→18:56)
[2018-12-06] MEDS: cloNIDine HCL 0.1 MG TABLET PO SCH ×3 (06:12→22:50)
[2018-12-06] MEDS: SIMETHICONE 80 MG TAB.CHEW (FP) PO SCH ×4 (06:12→22:52)
[2018-12-06 07:19] LABS: ANION GAP 7 MMOL/L (8-16); BLOOD UREA NITROGEN 30 mg/dL (7-18); CALCIUM 7.7 mg/dL (8.5-10.1); CHLORIDE 98 mmol/L (98-107); CO2 30 mmol/L (21-32); CREATININE 1.6 mg/dL (0.55-1.3); GLUCOSE,RANDOM 124 mg/dL (74-106); POTASSIUM 4.2 mmol/L (3.5-5.1); SODIUM 135 mmol/L (136-145)
--- NOTE | 2018-12-06 09:09 | PN ---
Progress Note, Physician History of Present Illness: POD16 s/p extensive lysis of intestinal adhesions for developing SBO, with suture repair of small RUQ incisional hernia from inside, with findings of previous intestinal reconstruction, likely hepaticojejunostomy, done years ago after post-cholecystectomy complications per pt. Pt postop had new onset of afib with RVR and was transferred to telemetry, treated with cardizem drip and prn's - now rate controlled on po meds. She is tolerating soft diabetic diet, but has been feeling full and bloated and with periodic abdominal pain/gas pain, not eating as much as normally at home. She is seen and examined sitting up in chair this morning. She is voiding and passing gas (lot earlier this morning), had a small BM yesterday, soft/loose, not liquid. Pain managed with tylenol prn, but she thinks she waits too long to take it. Also on standing simethicone and reglan. She ambulates as often as she can, with walker/assistance, and is about to get cleaned up for today. She had breakfast, almost half. Feels better this morning than recently, is in good spirits. - Current Medication List Current Medications: Active Medications Acetaminophen (Tylenol -) 650 mg PO Q6H PRN PRN Reason: Pain Level 4 - 10 Last Admin: 12/05/18 21:49 Dose: 650 mg Allopurinol (Zyloprim -) 100 mg PO DAILY [facility] Last Admin: 12/05/18 10:50 Dose: 100 mg Amino Acids (Prosource No Carb Liquid Pkt) 30 ml PO BID@0800,1730 [facility] Last Admin: 12/05/18 17:09 Dose: 30 ml Apixaban (Eliquis -) 5 mg PO BID [facility] Last Admin: 12/05/18 21:49 Dose: 5 mg Atorvastatin Calcium (Lipitor -) 10 mg PO HS [facility] Last Admin: 12/05/18 21:49 Dose: 10 mg Clonidine (Catapres -) 0.2 mg PO TID [facility] Last Admin: 12/06/18 06:12 Dose: 0.2 mg Diltiazem HCl (Cardizem Injection -) 10 mg IVPUSH Q4H PRN PRN Reason: TACHYCARDIA Last Admin: 11/26/18 17:37 Dose: 10 mg Diltiazem HCl (Cardizem Cd -) 360 mg PO DAILY [facility] Last Admin: 12/05/18 10:49 Dose: 360 mg Diphenhydramine HCl (Benadryl Injection -) 25 mg IVPB Q6H PRN PRN Reason: ITCHING Docusate Sodium (Colace -) 100 mg PO BID [facility] Last Admin: 12/05/18 21:49 Dose: 100 mg Insulin Aspart (Novolog Vial Sliding Scale -) 1 vial SQ [facility]; Protocol Last Admin: 12/06/18 06:08 Dose: Not Given Insulin Detemir (Levemir Vial) 20 units SQ [facility] Last Admin: 12/05/18 17:38 Dose: 20 units Magnesium Oxide (Mag-Ox -) 400 mg PO BID [facility] Last Admin: 12/05/18 21:49 Dose: 400 mg Metoclopramide HCl (Reglan -) 10 mg PO TIDAC [facility] Last Admin: 12/06/18 06:12 Dose: 10 mg Ondansetron HCl (Zofran Injection) 4 mg IVPUSH Q4H PRN PRN Reason: NAUSEA AND/OR VOMITING Last Admin: 11/25/18 06:39 Dose: 4 mg Oxycodone HCl (Roxicodone -) 5 mg PO Q4H PRN PRN Reason: Pain Level 8-10 BREAKTHROUGH Last Admin: 12/05/18 17:57 Dose: 5 mg Propranolol HCl (Inderal La -) 60 mg PO DAILY [facility] Last Admin: 12/05/18 10:50 Dose: 60 mg Simethicone (Mylicon -) 80 mg PO TID [facility] Last Admin: 12/06/18 06:12 Dose: 80 mg - Objective Vital Signs: Vital Signs Temperature 98.4 F 12/06/18 05:52 Pulse Rate 59 L 12/06/18 05:52 Respiratory Rate 20 12/06/18 05:52 Blood Pressure 114/57 L 12/06/18 05:52 O2 Sat by Pulse Oximetry (%) 95 12/05/18 21:00 Vital Signs Period Temp Pulse Resp BP Sys/Pascual Pulse Ox Last 24 Hr 98.0 F-98.6 F 59-76 18-20 114-141/57-73 95-96 Intake & Output 12/05/18 12/06/18 12/06/18 23:59 07:59 15:59 Intake Total 1100 100 Output Total 750 Balance 350 100 Intake: Oral 1100 100 Output: Urine 750 Void 750 Other: Voiding Method Toilet # Unmeasured Voids Void 1 1 Bowel Movement Yes # Bowel Movements 1 Constitutional: Yes: No Distress, Calm, Obese Eyes: Yes: Conjunctiva Clear, EOM Intact HENT: Yes: Atraumatic, Normocephalic Gastrointestinal: Yes: Soft, Abdomen, Obese, Distention (less, much softer ( even sitting)). No: Tenderness (minimal, lower incisional mainly) Extremities: No: Cool, Cyanosis Integumentary: Yes: Incision (midline). No: Jaundice, Rash Wound/Incision: Yes: Well Approximated (upper portion), Steri Strips (upper portion), Dressing Dry and Intact (with serous drainage on gauze beneath tape), Draining (serous on gauze), Unapproximated (lower pole of incision under dressing). No: Dressing Removed (will change dressing later when pt's daughter is present) Neurological: Yes: Alert, Oriented Labs: CBC, BMP 12/05/18 09:20 12/06/18 05:30 BUN/Cr up a bit more K ok Problem List - Problems (1) Intestinal adhesions with partial obstruction Assessment/Plan: POD16 s/p extensive lysis of adhesions and RUQ incisional hernia repair s/p likely hepaticojejunostomy in past with intestinal reconstruction - with dilated/stagnant loop of anastomotic area had small enterotomy repaired in proximal SB with small yellow fluid leakage, minimal contamination stable postop tolerating diabetic soft diet but with abd distention and gas pains po pain meds prn - tylenol first line - encouraged to take when pain is 4-6, not wait until it gets bad moving bowels and passing gas simethicone and reglan, colace trend labs, replete lytes prn OOB to chair and ambulate with assist as often as able pt ambulation has improved to the point she may not need short-term rehab prior to discharge home PT following lower pole of incision opened and being packed daily will need VNS for wound care on d/c will change dressing later today with pt's daughter when she arrives discussed with Dr. Medrano Code(s): K56.51 - INTESTINAL ADHESIONS [BANDS], WITH PARTIAL OBSTRUCTION (2) Infection following a procedure, superficial incisional surgical site, initial encounter Assessment/Plan: lower pole of incision being packed daily with saline-damp gauze will do dressing later today pt will need VNS on d/c home for ongoing wound care pt's daughter Izabela indicated she will be able to learn how to help with daily dressings/packings on days nurse cannot come pt lives with brother, who will not be able to do so instructions in d/c plan Code(s): T81.41XA - INFCT FOL A PROC, SUPERFIC INCISIONAL SURGICAL SITE, INIT (3) Incisional hernia, without obstruction or gangrene Code(s): K43.2 - INCISIONAL HERNIA WITHOUT OBSTRUCTION OR GANGRENE (4) Atrial fibrillation with RVR Assessment/Plan: cardiology following HR controlled on po meds keep lytes repleted on Eliquis Code(s): I48.91 - UNSPECIFIED ATRIAL FIBRILLATION (5) Hypertension Assessment/Plan: cardio managing, on po meds BP only 114/57 this am, HR in 50s Code(s): I10 - ESSENTIAL (PRIMARY) HYPERTENSION Qualifiers: Hypertension type: essential hypertension Qualified Code(s): I10 - Essential (primary) hypertension (6) Diabetes mellitus type 2 in obese Assessment/Plan: endo following maintenance regimen started am glucose today 123 med/endo to manage 24h urine collection starting now for incidental adrenal mass noted on CT Code(s): E11.69 - TYPE 2 DIABETES MELLITUS WITH OTHER SPECIFIED COMPLICATION; E66.9 - OBESITY, UNSPECIFIED (7) S/P ureteral stent placement Assessment/Plan: urology following renal ultrasound done stent management per uro - pt may need laser lithotripsy with stent removal as outpatient, off anticoagulation Code(s): Z96.0 - PRESENCE OF UROGENITAL IMPLANTS (8) Gout Assessment/Plan: home med resumed Code(s): M10.9 - GOUT, UNSPECIFIED Qualifiers: Gout site: toe Gout etiology: unspecified cause Chronicity: unspecified Laterality: unspecified laterality Qualified Code(s): M10.9 - Gout, unspecified (9) CKD (chronic kidney disease) stage 3, GFR 30-59 ml/min Assessment/Plan: nephrology following BUN/Cr up a little more recommend close monitoring of UOP, po intake trend labs Code(s): N18.3 - CHRONIC KIDNEY DISEASE, STAGE 3 (MODERATE)
[2018-12-06] MEDS ORDERED: PT OWN MED DRAWER 7, Y5N ONE (11:07)
[2018-12-06] MEDS: DOCUSATE SODIUM 100 MG CAPSULE (FP) PO SCH ×2 (11:10→22:50)
[2018-12-06] MEDS: APIXABAN 5 MG TABLET PO SCH ×2 (11:11→22:51)
[2018-12-06] MEDS: MAGNESIUM OXIDE 400 MG TABLET (FP) PO SCH ×2 (11:11→22:51)
[2018-12-06] MEDS: AMINO ACIDS/PROTEIN HYDROLYS 30 ML LIQUID.PKT PO SCH (11:11)
[2018-12-06] MEDS: ALLOPURINOL 100 MG TABLET (FP) PO SCH (11:11)
[2018-12-06] MEDS: ACETAMINOPHEN 325 MG TABLET (FP) PO PRN ×2 (11:32→22:54)
--- NOTE | 2018-12-06 12:21 | PN ---
Progress Note (short form) - Note Progress Note: s: no cp sob palps dizzy o: Vital Signs Period Temp Pulse Resp BP Sys/Pascual Pulse Ox Last 24 Hr 98.0 F-98.6 F 59-64 18-20 114-141/57-73 95 Constitutional: Yes: Well Nourished, No Distress, Calm Eyes: Yes: Conjunctiva Clear Respiratory: Yes: Regular, CTA Bilaterally Gastrointestinal: Yes: Tenderness Cardiovascular: Yes: irreg JVD: No Heart Sounds: Yes: S1, S2 Murmur: No: Systolic Murmur Extremities: No: Cold Edema: No Peripheral Pulses: 2+ Left Doralis Pedis, 2+ Right Dorsalis Pedis Integumentary: No: Jaundice Neurological: Yes: Alert, Oriented Psychiatric: No: Agitated Current Medications Generic Name Dose Route Start Last Admin Trade Name Freq PRN Reason Stop Dose Admin Acetaminophen 650 mg 11/29/18 11:22 12/06/18 11:32 Tylenol - PO 650 mg Q6H PRN Administration Pain Level 4 - 10 Allopurinol 100 mg 11/30/18 10:00 12/06/18 11:11 Zyloprim - PO 100 mg DAILY [facility] Administration Amino Acids 30 ml 12/05/18 17:30 12/06/18 11:11 Prosource No Carb Liquid Pkt PO 30 ml BID@0800,1730 [facility] Administration Apixaban 5 mg 12/01/18 10:00 12/06/18 11:11 Eliquis - PO 5 mg BID [facility] Administration Atorvastatin Calcium 10 mg 11/29/18 22:00 12/05/18 21:49 Lipitor - PO 10 mg HS [facility] Administration Clonidine 0.2 mg 12/04/18 14:00 12/06/18 06:12 Catapres - PO 0.2 mg TID [facility] Administration Diltiazem HCl 10 mg 11/22/18 17:18 11/26/18 17:37 Cardizem Injection - IVPUSH 10 mg Q4H PRN Administration TACHYCARDIA Diltiazem HCl 360 mg 12/03/18 12:00 12/06/18 11:11 Cardizem Cd - PO 360 mg DAILY [facility] Administration Diphenhydramine HCl 25 mg 11/26/18 17:12 Benadryl Injection - IVPB Q6H PRN ITCHING Docusate Sodium 100 mg 11/30/18 22:00 12/06/18 11:10 Colace - PO 100 mg BID [facility] Administration Insulin Aspart 1 vial 11/20/18 16:30 12/06/18 06:08 Novolog Vial Sliding Scale - SQ Not Given ACHS [facility] Protocol Insulin Detemir 20 units 12/05/18 17:16 12/05/18 17:38 Levemir Vial SQ 20 units HS [facility] Administration Magnesium Oxide 400 mg 12/04/18 11:15 12/06/18 11:11 Mag-Ox - PO 400 mg BID [facility] Administration Metoclopramide HCl 10 mg 12/03/18 07:00 12/06/18 11:11 Reglan - PO 10 mg TIDAC [facility] Administration Ondansetron HCl 4 mg 11/20/18 12:08 11/25/18 06:39 Zofran Injection IVPUSH 4 mg Q4H PRN Administration NAUSEA AND/OR VOMITING Oxycodone HCl 5 mg 12/05/18 16:36 12/05/18 17:57 Roxicodone - PO 5 mg Q4H PRN Administration Pain Level 8-10 BREAKTHROUGH Propranolol HCl 60 mg 11/30/18 10:00 12/06/18 11:12 Inderal La - PO 60 mg DAILY [facility] Administration Simethicone 80 mg 12/03/18 22:00 12/06/18 06:12 Mylicon - PO 80 mg TID [facility] Administration CBC, BMP 12/05/18 09:20 12/06/18 05:30 Assessment/Plan EKG: initial sinus, LVH, first deg AVB EKG 11/22 afib with RVR rate 135 bpm echo 11/2016 LV mildly dilated, nl LV function, sigmoid septum, RV nl, LA severely dilated, RA mildly enlarged, mild MR, mild TR, at least mild pulm HTN, RVSP at least 42 mmHg tele: sr afib - in post op setting after ex lap, PAN - 11/25: converted spontaneously now to sinus - 11/26: overnight converted back to afib with RVR, dilt gtt was started, initially poor IV access now has been running, no improvement with additional lopressor 5 mg IV this morning. replete K and Mg, digoxin 0.125 mg IV x 1 ordered, cont dilt gtt - 11/27: started diltiazem 60 mg PO Q6H, increase to 90 mg Q6H, start propranolol 20 mg Q6H, uptitrate as tolerated, wean dilt gtt as tolerated -11/28-7: rate controlled on po meds. eliquis started. -12/02-12: sinus. continue diltiazem CD 360 mg daily, propranolol LA 60 mg daily. can dc tele. SBO s/p ex lap, PAN - doing well post op from surgical pov HTN -bp controlled well on current meds -hold lisinopril, chlorthalidone in setting of CHACHA pulm HTN, chronic diastolic HF - mild to mod, likely 2/2 diastolic CHF - appears euvolemic DM - manage per primary HLD - continue statin CHACHA on CKD -improved with ivfs -renal following
--- NOTE | 2018-12-06 12:48 | PN ---
Progress Note (short form) - Note Progress Note: Renal follow up for CHACHA Pt seen and examined in the [facility] no acute complaints pain is controlled with meds no sob, cp, fever, chills, N/V/D tolerating oral intake Vital Signs Temperature 98.4 F 12/06/18 05:52 Pulse Rate 59 L 12/06/18 05:52 Respiratory Rate 20 12/06/18 05:52 Blood Pressure 114/57 L 12/06/18 05:52 O2 Sat by Pulse Oximetry (%) 95 12/05/18 21:00 Intake & Output 12/03/18 12/04/18 12/05/18 12/06/18 23:59 23:59 23:59 23:59 Intake Total 176 284 9717 100 Output Total 2550 300 850 Balance -1950 400 260 100 NAD RRR CTA slight abd tenderness No Le edema CBC, BMP 12/05/18 09:20 12/06/18 05:30 Current Medications Acetaminophen (Tylenol -) 650 mg PO Q6H PRN PRN Reason: Pain Level 4 - 10 Last Admin: 12/06/18 11:32 Dose: 650 mg Allopurinol (Zyloprim -) 100 mg PO DAILY [facility] Last Admin: 12/06/18 11:11 Dose: 100 mg Amino Acids (Prosource No Carb Liquid Pkt) 30 ml PO BID@0800,1730 [facility] Last Admin: 12/06/18 11:11 Dose: 30 ml Apixaban (Eliquis -) 5 mg PO BID [facility] Last Admin: 12/06/18 11:11 Dose: 5 mg Atorvastatin Calcium (Lipitor -) 10 mg PO HS [facility] Last Admin: 12/05/18 21:49 Dose: 10 mg Clonidine (Catapres -) 0.2 mg PO TID [facility] Last Admin: 12/06/18 06:12 Dose: 0.2 mg Diltiazem HCl (Cardizem Injection -) 10 mg IVPUSH Q4H PRN PRN Reason: TACHYCARDIA Last Admin: 11/26/18 17:37 Dose: 10 mg Diltiazem HCl (Cardizem Cd -) 360 mg PO DAILY [facility] Last Admin: 12/06/18 11:11 Dose: 360 mg Diphenhydramine HCl (Benadryl Injection -) 25 mg IVPB Q6H PRN PRN Reason: ITCHING Docusate Sodium (Colace -) 100 mg PO BID [facility] Last Admin: 12/06/18 11:10 Dose: 100 mg Insulin Aspart (Novolog Vial Sliding Scale -) [address] [facility]; Protocol Last Admin: 12/06/18 06:08 Dose: Not Given Insulin Detemir (Levemir Vial) 20 units SQ HS [facility] Last Admin: 12/05/18 17:38 Dose: 20 units Magnesium Oxide (Mag-Ox -) 400 mg PO BID [facility] Last Admin: 12/06/18 11:11 Dose: 400 mg Metoclopramide HCl (Reglan -) 10 mg PO TIDAC [facility] Last Admin: 12/06/18 11:11 Dose: 10 mg Ondansetron HCl (Zofran Injection) 4 mg IVPUSH Q4H PRN PRN Reason: NAUSEA AND/OR VOMITING Last Admin: 11/25/18 06:39 Dose: 4 mg Oxycodone HCl (Roxicodone -) 5 mg PO Q4H PRN PRN Reason: Pain Level 8-10 BREAKTHROUGH Last Admin: 12/05/18 17:57 Dose: 5 mg Propranolol HCl (Inderal La -) 60 mg PO DAILY [facility] Last Admin: 12/06/18 11:12 Dose: 60 mg Simethicone (Mylicon -) 80 mg PO TID [facility] Last Admin: 12/06/18 06:12 Dose: 80 mg 72 year old woman with hx of CKD, Nephrolithiasis, DM who presented with Abd pain secondary to SBO s/p surgical intervention with CHACHA. #Recurrent CHACHA #SBO s/p OR Renal function stable over the past 24 hours once again encouraged oral hydration will defer IVF for now Thank you Ethan Ram DO
--- NOTE | 2018-12-06 14:23 | DS ---
Physical Examination Vital Signs: Vital Signs Temperature 98.4 F 12/06/18 05:52 Pulse Rate 59 L 12/06/18 05:52 Respiratory Rate 20 12/06/18 05:52 Blood Pressure 114/57 L 12/06/18 05:52 O2 Sat by Pulse Oximetry (%) 95 12/05/18 21:00 Constitutional: Yes: Calm Cardiovascular: Yes: Regular Rate and Rhythm, S1, S2 Respiratory: Yes: CTA Bilaterally Gastrointestinal: Yes: Normal Bowel Sounds, Soft, Other (midline steri strips) Neurological: Yes: Alert, Oriented Labs: CBC, BMP 12/05/18 09:20 12/06/18 05:30 Discharge Summary Reason For Visit: ABDOMINAL PAIN Current Active Problems Adrenal adenoma (Acute) Atrial fibrillation with RVR (Acute) CKD (chronic kidney disease) stage 3, GFR 30-59 ml/min (Acute) Constipation (Acute) Diabetes mellitus type 2 in obese (Acute) Distended abdomen (Acute) Diverticula of colon (Acute) Generalized abdominal pain (Acute) Gout (Acute) Head ache (Acute) Headache (Acute) History of cholecystectomy (Acute) History of common bile duct surgery (Acute) Hypertension (Acute) Hypomagnesemia (Acute) Ileitis (Acute) Incisional hernia, without obstruction or gangrene (Acute) Infection following a procedure, superficial incisional surgical site, initial encounter (Acute) Intestinal adhesions with partial obstruction (Acute) New onset a-fib (Acute) Pneumobilia (Acute) RUQ pain (Acute) S/P ureteral stent placement (Acute) Small bowel obstruction (Acute) Hospital Course: CHIEF COMPLAINT: Abdominal Pain PCP: Dr. Prasad HISTORY OF PRESENT ILLNESS: Severe pain radiating to the pack; nothing makes it better or worse. On cipro for UTI. Found to have abdominal tenderness on examination. Afebrile and hemodynamically stable. Found to have a slight LA elevation and slightly elevated Cr over her baseline with a minor leukocytosis. CT abdomen/pelvis done and was shown to have L-ureteral stent in place with some mild L-hydro, uncomplicated diverticulitis, and a dilated loop of small bowel in the RLQ that radiology comments is most likely postoperative appearance wather than a true SBO as per the preliminary read. Dr. Rodney was consulted earlier by the ER to evaluate the patient for the bowel loop dilation. Patient had the stent inserted in the [place]-ureter in [place]; chose to followup here. Need to get more history from the [facility] regarding prodedure. Does have a mesh in from prior hernia repair. 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 We are currently repeating the CT with PO contrast to better elucidate anatomy. Planning on aggressive fluid repletion. LA slightly up so will continue to hydrate and trend. Empiric abx per sgy and if needed after tomorrow's dose will consult ID. Appreciate the wonderful care rendered in ER and from consulting subspecialists. patient had extensive course in hospital had exploratory laporotomy with lysis of adhesion and hernia repair post op ng tube npo the liquid diet post course course afib cardizem drip on telemetry floor and now on oral meds rate control DM insulin rstarted bgm is ok creatinine noted renal on board oral intake encouraged Condition: Improved - Instructions Diet, Activity, Other Instructions: Postoperative instructions: You had an abdominal exploration with extensive lysis of adhesions and suture repair of a small right upper quadrant incisional hernia on 11/20/[address] Neal Rodney of [facility]. Activity: Resume your usual activities gradually, but no heavy exertion or lifting more than 10-15 pounds for at least 6 weeks. You may shower with your wound dressing out/off (at the time of dressing changes), just pat the incision areas dry. No bath or swimming until skin incisions have completely healed. You may eat your usual diabetic diet as tolerated. Wound Care: The lower part of your midline abdominal incision was opened because of drainage from a small, local wound infection. It will heal slowly from the inside out and requires daily dressing changes with gauze packing. A visiting nurse will be arranged to come to your home and help with wound care, and will also teach a family member to change the packing/dressing on a daily basis, since they will not be able to come every single day. The wound may be cleansed while in the shower by letting soapy water run over it , and the shower spray to rinse it out. You cannot hurt the area with soap and water. It may also be cleansed locally with saline solution and gauze by the nurse. Surrounding skin should be dried gently and kept dry. The wound itself should be gently packed daily with saline-dampened (4x4) gauze , opened up and tucked in to touch all the wound surfaces, without any damp gauze outside the wound edges on intact skin. This is then covered with some folded dry gauze (just to cover the wound site) and kept in place with tape to hold it. The wound will get smaller over time, and may fit less gauze inside as it heals. The visiting nurse may change to smaller (2x2) gauze pieces as necessary, when the 4x4 is too big to fit. Pain: For pain, you may use Tylenol (acetaminophen) 1-2 pills every 4-6 hours as needed. If you are prescribed a Tylenol/narcotic combination for severe pain , use it instead of plain Tylenol as needed and switch back when your pain starts decreasing. Do not take more than 4000 mg of acetaminophen in a day. Take all medications as prescribed or indicated on the labeling. Follow-up: Call [phone] to make your next followup appointment with Dr. Rodney. Clinic is usually held on Tuesdays in the [facility] on the fifth floor of [facility]. Call Dr. Rodney's main office at [phone] if you have: * increasing pain not responsive to pain medication * fever of 101F or higher * vomiting * unusual or increasing bleeding or drainage from wounds * increasing redness or swelling at wound sites Also, see your primary medical doctor within 1-2 weeks, and all other doctors as noted below. Referrals: Elvin Prasad MD [Primary Care Provider] - Raj Perry MD [Staff Physician] - Neal Rodney MD [Staff Physician] - Maria Del Rosario Da Silva MD [Staff Physician] - Nelly Fleming MD [Staff Physician] - Disposition: VNS/HOME HEALTH CARE - Home Medications Comprehensive Discharge Medication List: Ambulatory Orders Cholecalciferol (Vitamin D3) [Vitamin D3] 50 mcg PO DAILY 10/19/16 Insulin (Levemir) [Levemir Vial] 55 unit SQ [facility] 10/19/16 Allopurinol [Zyloprim -] 100 mg PO DAILY 12/20/16 Insulin (LOG) Aspart [NovoLOG -] 7 units SQ DAILY 01/16/17 Aspirin [ASA -] 81 mg PO DAILY 03/19/18 Amlodipine Besylate 5 mg PO DAILY 11/16/18 Atorvastatin Calcium 10 mg PO DAILY 11/16/18 Chlorthalidone 25 mg PO DAILY 11/16/18 Ciprofloxacin [Cipro (Restricted To Id)] 500 mg PO BID 11/16/18 Potassium Citrate [Potassium Citrate ER] 30 meq PO BID 11/16/18
[2018-12-06] MEDS: oxyCODONE HCL 5 MG TABLET PO PRN ×2 (15:41→20:21)
[2018-12-06] MEDS ORDERED: BISACODYL 5 MG TABLET.DR (FP) PO PRN (16:54)
[2018-12-06] MEDS: ATORVASTATIN CA 10 MG TABLET (FP) PO SCH (22:51)
[2018-12-06] MEDS: INSULIN (LEVEMIR) 100 UNITS/ML UNITS SQ SCH (22:52)
[2018-12-07] MEDS: SIMETHICONE 80 MG TAB.CHEW (FP) PO SCH ×3 (06:23→21:19)
[2018-12-07] MEDS: cloNIDine HCL 0.1 MG TABLET PO SCH ×3 (06:23→21:19)
[2018-12-07] MEDS: INSULIN SLIDING SCALE (NOVOLOG) 1 VIAL SQ SCH ×4 (06:24→21:29)
[2018-12-07] MEDS: METOCLOPRAMIDE HCL 10 MG TABLET (FP) PO SCH ×4 (06:26→17:16)
[2018-12-07 08:17] LABS: BASO % 0.4 % (0-2.0); EOS % 1.9 % (0-4.5); HEMATOCRIT 21.2 % (32.4-45.2); HEMOGLOBIN 7.1 GM/dL (10.7-15.3); LYMPH % 12.2 % (8-40); MCH 26.4 pg (25.7-33.7); MCHC 33.3 g/dl (32.0-36.0); MEAN CELL VOLUME 79.3 fl (80-96); MEAN PLT VOLUME 8.1 fl (7.5-11.1); MONO % 13.8 % (3.8-10.2); NEUT % 71.7 % (42.8-82.8); PLATELET COUNT 420 K/MM3 (134-434); RBC 2.68 M/mm3 (3.60-5.2); RDW 19.6 % (11.6-15.6); WHITE BLOOD COUNT 8.7 K/mm3 (4.0-10.0)
[2018-12-07 08:48] LABS: ALBUMIN 1.6 g/dl (3.4-5.0); ALK PHOS 327 U/L (45-117); ANION GAP 7 MMOL/L (8-16); BILIRUBIN,TOTAL 0.5 mg/dL (0.2-1); BLOOD UREA NITROGEN 41 mg/dL (7-18); CALCIUM 7.9 mg/dL (8.5-10.1); CHLORIDE 97 mmol/L (98-107); CO2 29 mmol/L (21-32); CREATININE 1.7 mg/dL (0.55-1.3); GLUCOSE,RANDOM 145 mg/dL (74-106); POTASSIUM 4.2 mmol/L (3.5-5.1); SGOT/AST 36 U/L (15-37); SGPT/ALT 24 U/L (13-61); SODIUM 133 mmol/L (136-145); TOT PROT 5.9 g/dl (6.4-8.2)
--- NOTE | 2018-12-07 08:54 | PN ---
Progress Note, Physician Chief Complaint: abd pain History of Present Illness: feels well. no abd pain. no sob (incl walking to solarium), orthopnea no palpit no cp - Current Medication List Current Medications: Active Medications Acetaminophen (Tylenol -) 650 mg PO Q4H PRN PRN Reason: Pain Level 4 - 10 Last Admin: 12/06/18 22:54 Dose: 650 mg Allopurinol (Zyloprim -) 100 mg PO DAILY [facility] Last Admin: 12/06/18 11:11 Dose: 100 mg Apixaban (Eliquis -) 5 mg PO BID [facility] Last Admin: 12/06/18 22:51 Dose: 5 mg Atorvastatin Calcium (Lipitor -) 10 mg PO HS [facility] Last Admin: 12/06/18 22:51 Dose: 10 mg Bisacodyl (Dulcolax -) 10 mg PO HS PRN PRN Reason: CONSTIPATION Clonidine (Catapres -) 0.2 mg PO TID [facility] Last Admin: 12/07/18 06:23 Dose: 0.2 mg Diltiazem HCl (Cardizem Injection -) 10 mg IVPUSH Q4H PRN PRN Reason: TACHYCARDIA Last Admin: 11/26/18 17:37 Dose: 10 mg Diltiazem HCl (Cardizem Cd -) 360 mg PO DAILY [facility] Last Admin: 12/06/18 11:11 Dose: 360 mg Diphenhydramine HCl (Benadryl Injection -) 25 mg IVPB Q6H PRN PRN Reason: ITCHING Docusate Sodium (Colace -) 100 mg PO BID [facility] Last Admin: 12/06/18 22:50 Dose: 100 mg Insulin Aspart (Novolog Vial Sliding Scale -) 1 vial SQ [facility]; Protocol Last Admin: 12/07/18 06:24 Dose: 2 units Insulin Detemir (Levemir Vial) 20 units SQ [facility] Last Admin: 12/06/18 22:52 Dose: 20 units Magnesium Oxide (Mag-Ox -) 400 mg PO BID [facility] Last Admin: 12/06/18 22:51 Dose: 400 mg Metoclopramide HCl (Reglan -) 10 mg PO TIDAC [facility] Last Admin: 12/07/18 06:26 Dose: 10 mg Ondansetron HCl (Zofran Injection) 4 mg IVPUSH Q4H PRN PRN Reason: NAUSEA AND/OR VOMITING Last Admin: 11/25/18 06:39 Dose: 4 mg Oxycodone HCl (Roxicodone -) 5 mg PO Q4H PRN PRN Reason: Pain Level 8-10 BREAKTHROUGH Last Admin: 12/06/18 20:21 Dose: 5 mg Propranolol HCl (Inderal La -) 60 mg PO DAILY [facility] Last Admin: 12/06/18 11:12 Dose: 60 mg Simethicone (Mylicon -) 80 mg PO TID [facility] Last Admin: 12/07/18 06:23 Dose: 80 mg - Objective Vital Signs: Vital Signs Temperature 98.8 F 12/07/18 05:31 Pulse Rate 61 12/07/18 05:31 Respiratory Rate 18 12/07/18 05:31 Blood Pressure 101/52 L 12/07/18 05:31 O2 Sat by Pulse Oximetry (%) 95 12/06/18 20:34 Constitutional: Yes: Well Nourished, No Distress, Calm Cardiovascular: Yes: Regular Rate and Rhythm, S1, S2. No: Gallop, Murmur Respiratory: Yes: Regular, CTA Bilaterally. No: Accessory Muscle Use, Rales, Wheezes Extremities: No: Cold Edema: Yes (1+ ankles) Neurological: Yes: Alert, Oriented Psychiatric: No: Agitated Labs: CBC, BMP 12/07/18 07:20 12/07/18 07:20 INR, PTT INR 1.19 (0.82-1.09) 11/16/18 14:35 Assessment/Plan EKG: initial sinus, LVH, first deg AVB EKG 11/22 afib with RVR rate 135 bpm echo 11/2016 LV mildly dilated, nl LV function, sigmoid septum, RV nl, LA severely dilated, RA mildly enlarged, mild MR, mild TR, at least mild pulm HTN, RVSP at least 42 mmHg tele: NSR, artifact afib - in post op setting after ex lap, PAN - 11/25: converted spontaneously now to sinus - 11/26: overnight converted back to afib with RVR, dilt gtt was started, initially poor IV access now has been running, no improvement with additional lopressor 5 mg IV this morning. replete K and Mg, digoxin 0.125 mg IV x 1 ordered, cont dilt gtt - 11/27: started diltiazem 60 mg PO Q6H, increase to 90 mg Q6H, start propranolol 20 mg Q6H, uptitrate as tolerated, wean dilt gtt as tolerated -11/28-: rate controlled on po meds. eliquis started. -12/02-12: sinus. continue diltiazem CD 360 mg daily, propranolol LA 60 mg daily. -12/07: soft BPs, hgb trending down. surgery f/u. hold eliquis until anemia stabilizes. SBO s/p ex lap, PAN -doing well post op from surgical pov. d/c planning underway -H/H down today, surgery f/u -holding eliquis for now, as above HTN -chronically suboptimal BP control at home -has been on mult meds including clonidine at home -lisinopril, chlorthalidone held here in setting of CHACHA, clonidine continued -hi dose diltiazem plus low dose propranolol started here to control rapid AF -12/07: bp's soft at present. decr clonidine 0.2 TID to 0.1 BID. continue other meds -hgb down, r/o postop bleeding--per surgery pulm HTN, chronic diastolic HF - mild to mod, likely 2/2 diastolic CHF - appears euvolemic DM - manage per primary HLD - continue statin CHACHA on CKD -baseline creat 1.3-1.5 -running higher here, and worsening. ? remains volume contracted--per renal
--- NOTE | 2018-12-07 09:46 | PN ---
Progress Note, Physician Chief Complaint: Abdominal pain SBP vs Cecal Volvulus History of Present Illness: NAD Feeling slightly better passing flatus no BM today Appetite appropriate Seen by Surgery Diet changed to low sodium Seen by Endocrinology - Current Medication List Current Medications: Active Medications Acetaminophen (Tylenol -) 650 mg PO Q4H PRN PRN Reason: Pain Level 4 - 10 Last Admin: 12/06/18 22:54 Dose: 650 mg Allopurinol (Zyloprim -) 100 mg PO DAILY [facility] Last Admin: 12/06/18 11:11 Dose: 100 mg Atorvastatin Calcium (Lipitor -) 10 mg PO HS [facility] Last Admin: 12/06/18 22:51 Dose: 10 mg Bisacodyl (Dulcolax -) 10 mg PO HS PRN PRN Reason: CONSTIPATION Clonidine (Catapres -) 0.1 mg PO BID [facility] Diltiazem HCl (Cardizem Injection -) 10 mg IVPUSH Q4H PRN PRN Reason: TACHYCARDIA Last Admin: 11/26/18 17:37 Dose: 10 mg Diltiazem HCl (Cardizem Cd -) 360 mg PO DAILY [facility] Last Admin: 12/06/18 11:11 Dose: 360 mg Diphenhydramine HCl (Benadryl Injection -) 25 mg IVPB Q6H PRN PRN Reason: ITCHING Docusate Sodium (Colace -) 100 mg PO BID [facility] Last Admin: 12/06/18 22:50 Dose: 100 mg Insulin Aspart (Novolog Vial Sliding Scale -) 1 vial SQ [facility]; Protocol Last Admin: 12/07/18 06:24 Dose: 2 units Insulin Detemir (Levemir Vial) 20 units SQ [facility] Last Admin: 12/06/18 22:52 Dose: 20 units Magnesium Oxide (Mag-Ox -) 400 mg PO BID [facility] Last Admin: 12/06/18 22:51 Dose: 400 mg Metoclopramide HCl (Reglan -) 10 mg PO TIDAC [facility] Last Admin: 12/07/18 06:26 Dose: 10 mg Ondansetron HCl (Zofran Injection) 4 mg IVPUSH Q4H PRN PRN Reason: NAUSEA AND/OR VOMITING Last Admin: 11/25/18 06:39 Dose: 4 mg Oxycodone HCl (Roxicodone -) 5 mg PO Q4H PRN PRN Reason: Pain Level 8-10 BREAKTHROUGH Last Admin: 12/06/18 20:21 Dose: 5 mg Propranolol HCl (Inderal La -) 60 mg PO DAILY [facility] Last Admin: 12/06/18 11:12 Dose: 60 mg Simethicone (Mylicon -) 80 mg PO TID [facility] Last Admin: 12/07/18 06:23 Dose: 80 mg - Objective Vital Signs: Vital Signs Temperature 98.8 F 12/07/18 05:31 Pulse Rate 61 12/07/18 05:31 Respiratory Rate 18 12/07/18 05:31 Blood Pressure 101/52 L 12/07/18 05:31 O2 Sat by Pulse Oximetry (%) 95 12/06/18 20:34 Constitutional: Yes: Well Nourished, No Distress, Calm Cardiovascular: Yes: Regular Rate and Rhythm Respiratory: Yes: Regular Gastrointestinal: Yes: Normal Bowel Sounds, Soft Genitourinary: Yes: WNL Musculoskeletal: Yes: Muscle Weakness Extremities: Yes: WNL Edema: No Peripheral Pulses WNL: Yes Wound/Incision: Yes: Dressing Dry and Intact Neurological: Yes: Alert, Oriented Psychiatric: Yes: Alert, Oriented Labs: CBC, BMP 12/07/18 07:20 12/07/18 07:20 INR, PTT INR 1.19 (0.82-1.09) 11/16/18 14:35 Problem List - Problems (1) Atrial fibrillation with RVR Assessment/Plan: -rate controlled -tele monitoring -continue Cardizem and Eliquis -cardiology on board Code(s): I48.91 - UNSPECIFIED ATRIAL FIBRILLATION (2) CKD (chronic kidney disease) stage 3, GFR 30-59 ml/min Assessment/Plan: -Cr improving -monitor trend -renal on board Code(s): N18.3 - CHRONIC KIDNEY DISEASE, STAGE 3 (MODERATE) (3) Diabetes mellitus type 2 in obese Assessment/Plan: -BGM ACHS -Novolog sliding scale -HgA1c 8.9% -Diabetic low sodium diet -RD consult -Adjusted levemir to 20 U HS -D/C [place] Code(s): E11.69 - TYPE 2 DIABETES MELLITUS WITH OTHER SPECIFIED COMPLICATION; E66.9 - OBESITY, UNSPECIFIED (4) Generalized abdominal pain Assessment/Plan: -Abdomen and Pelvic CT scan shows abnormal cecal position but no evidence of volvulus, abnormal ileal loops possibly representing enteritis -Meckel scan shows no scintigraphic evidence of Meckel diverticulum containing ectopic gastric mucosa -S/p laparatomy with extensive lysis of adhesion and suture repair of RUQ incisional hernia -pain management -tolerating PO intake -surgery on board -GI on board -zofran prn for nausea -Reglan TID AC -continue with Simethicone-change to standing order temporarily instead of PRN Code(s): R10.84 - GENERALIZED ABDOMINAL PAIN (5) Hypertension Assessment/Plan: -bp AT GOAL -continue Propanolol and cardizem -Low sodium diabetic diet -Clonidine restarted -cardiology on board Code(s): I10 - ESSENTIAL (PRIMARY) HYPERTENSION Qualifiers: Hypertension type: essential hypertension Qualified Code(s): I10 - Essential (primary) hypertension (6) Hypomagnesemia Assessment/Plan: -RESOLVED -monitor trend Code(s): E83.42 - HYPOMAGNESEMIA (7) Anemia Assessment/Plan: -Transfuse 1 unit PRBC today -Labs: B12,FA, TSH,FT4, Iron studies and stool OB ordered -monitor trend Code(s): D64.9 - ANEMIA, UNSPECIFIED Assessment/Plan see problem list physical therapy Daughter is learning wound care
[2018-12-07] MEDS: oxyCODONE HCL 5 MG TABLET PO PRN ×2 (09:52→21:19)
[2018-12-07] MEDS: ALLOPURINOL 100 MG TABLET (FP) PO SCH (09:52)
[2018-12-07] MEDS: DOCUSATE SODIUM 100 MG CAPSULE (FP) PO SCH (09:53)
[2018-12-07] MEDS: MAGNESIUM OXIDE 400 MG TABLET (FP) PO SCH ×2 (09:54→21:19)
[2018-12-07] MEDS: SODIUM CHLORIDE 1,000 ML IV SCH (17:09)
--- NOTE | 2018-12-07 17:09 | PN ---
Progress Note (short form) - Note Progress Note: sbo s/p resection chacha she is npo now Current Medications Acetaminophen (Tylenol -) 650 mg PO Q4H PRN PRN Reason: Pain Level 4 - 10 Last Admin: 12/06/18 22:54 Dose: 650 mg Allopurinol (Zyloprim -) 100 mg PO DAILY [facility] Last Admin: 12/07/18 09:52 Dose: 100 mg Atorvastatin Calcium (Lipitor -) 10 mg PO HS [facility] Last Admin: 12/06/18 22:51 Dose: 10 mg Bisacodyl (Dulcolax -) 10 mg PO HS PRN PRN Reason: CONSTIPATION Clonidine (Catapres -) 0.1 mg PO BID [facility] Last Admin: 12/07/18 09:55 Dose: 0.1 mg Diltiazem HCl (Cardizem Injection -) 10 mg IVPUSH Q4H PRN PRN Reason: TACHYCARDIA Last Admin: 11/26/18 17:37 Dose: 10 mg Diltiazem HCl (Cardizem Cd -) 360 mg PO DAILY [facility] Last Admin: 12/07/18 09:53 Dose: 360 mg Diphenhydramine HCl (Benadryl Injection -) 25 mg IVPB Q6H PRN PRN Reason: ITCHING Docusate Sodium (Colace -) 100 mg PO BID [facility] Last Admin: 12/07/18 09:53 Dose: 100 mg Sodium Chloride (Normal Saline -) 1,000 mls @ 100 mls/hr IV ASDIR [facility] Insulin Aspart (Novolog Vial Sliding Scale -) 1 vial SQ [facility]; Protocol Last Admin: 12/07/18 13:22 Dose: Not Given Insulin Detemir (Levemir Vial) 20 units SQ [facility] Last Admin: 12/06/18 22:52 Dose: 20 units Magnesium Oxide (Mag-Ox -) 400 mg PO BID [facility] Last Admin: 12/07/18 09:54 Dose: 400 mg Metoclopramide HCl (Reglan -) 10 mg PO TIDAC [facility] Last Admin: 12/07/18 13:22 Dose: Not Given Ondansetron HCl (Zofran Injection) 4 mg IVPUSH Q4H PRN PRN Reason: NAUSEA AND/OR VOMITING Last Admin: 11/25/18 06:39 Dose: 4 mg Oxycodone HCl (Roxicodone -) 5 mg PO Q4H PRN PRN Reason: Pain Level 8-10 BREAKTHROUGH Last Admin: 12/07/18 09:52 Dose: 5 mg Propranolol HCl (Inderal La -) 60 mg PO DAILY [facility] Last Admin: 12/07/18 09:54 Dose: 60 mg Simethicone (Mylicon -) 80 mg PO TID [facility] Last Admin: 12/07/18 13:23 Dose: Not Given Last Vital Signs Temp Pulse Resp BP Pulse Ox 98.4 F 58 L 16 136/69 95 12/07/18 14:25 12/07/18 14:25 12/07/18 14:25 12/07/18 14:25 12/06/18 20:34 alert in nad currently npo Lungs clear Heart reg Abd soft Ext no edema CBC, BMP 11/24/18 05:30 11/24/18 05:30 IMP- CKD s/p CHACHA post op continue IVF while she is npo
[2018-12-07] MEDS: ACETAMINOPHEN 325 MG TABLET (FP) PO PRN ×2 (17:10→21:21)
[2018-12-07] MEDS ORDERED: LIDOCAINE HCL 1%, 10 MG/ML (20ML VIAL) ONE (18:21)
[2018-12-07] MEDS ORDERED: morphine SULFATE 4 MG/ML VIAL IVPUSH ONE (18:45)
[2018-12-07] MEDS ORDERED: morphine SULFATE 4 MG/ML VIAL ONE (19:17)
--- NOTE | 2018-12-07 19:47 | PN ---
Progress Note, Physician History of Present Illness: POD17 s/p extensive lysis of intestinal adhesions for developing SBO, with suture repair of small RUQ incisional hernia from inside, with findings of previous intestinal reconstruction, likely hepaticojejunostomy, done years ago after post-cholecystectomy complications per pt. Pt postop had new onset of afib with RVR and was transferred to telemetry, treated with cardizem drip and prn's - now rate controlled on po meds. She is tolerating soft diabetic diet, but has been feeling full and bloated and with periodic abdominal pain/gas pain, not eating as much as normally at home. Ambulating, voiding, + bowel function but less recently. She had tylenol about an hour ago per nurse. She is seen and examined in bed. Dressing on lower pole of abdominal wound was noted earlier today to have much more yellow drainage than previously, with a concern of possible sb fistula... CT has been done with po contrast (no IV), and shows no clear signs of any contrast leakage above the fascia or out of the bowel. Also getting a unit of blood today for Hb 7.1. Was made NPO except meds with IVF back on this afternoon. - Current Medication List Current Medications: Active Medications Acetaminophen (Tylenol -) 650 mg PO Q4H PRN PRN Reason: Pain Level 4 - 10 Last Admin: 12/07/18 17:10 Dose: 650 mg Allopurinol (Zyloprim -) 100 mg PO DAILY [facility] Last Admin: 12/07/18 09:52 Dose: 100 mg Atorvastatin Calcium (Lipitor -) 10 mg PO HS [facility] Last Admin: 12/06/18 22:51 Dose: 10 mg Bisacodyl (Dulcolax -) 10 mg PO HS PRN PRN Reason: CONSTIPATION Clonidine (Catapres -) 0.1 mg PO BID [facility] Last Admin: 12/07/18 09:55 Dose: 0.1 mg Diltiazem HCl (Cardizem Injection -) 10 mg IVPUSH Q4H PRN PRN Reason: TACHYCARDIA Last Admin: 11/26/18 17:37 Dose: 10 mg Diltiazem HCl (Cardizem Cd -) 360 mg PO DAILY [facility] Last Admin: 12/07/18 09:53 Dose: 360 mg Diphenhydramine HCl (Benadryl Injection -) 25 mg IVPB Q6H PRN PRN Reason: ITCHING Docusate Sodium (Colace -) 100 mg PO BID [facility] Last Admin: 12/07/18 09:53 Dose: 100 mg Sodium Chloride (Normal Saline -) 1,000 mls @ 100 mls/hr IV ASDIR [facility] Last Admin: 12/07/18 17:09 Dose: 100 mls/hr Insulin Aspart (Novolog Vial Sliding Scale -) 1 vial SQ [facility]; Protocol Last Admin: 12/07/18 17:15 Dose: Not Given Insulin Detemir (Levemir Vial) 20 units SQ HS [facility] Last Admin: 12/06/18 22:52 Dose: 20 units Magnesium Oxide (Mag-Ox -) 400 mg PO BID [facility] Last Admin: 12/07/18 09:54 Dose: 400 mg Metoclopramide HCl (Reglan -) 10 mg PO TIDAC [facility] Last Admin: 12/07/18 17:16 Dose: 10 mg Ondansetron HCl (Zofran Injection) 4 mg IVPUSH Q4H PRN PRN Reason: NAUSEA AND/OR VOMITING Last Admin: 11/25/18 06:39 Dose: 4 mg Oxycodone HCl (Roxicodone -) 5 mg PO Q4H PRN PRN Reason: Pain Level 8-10 BREAKTHROUGH Last Admin: 12/07/18 09:52 Dose: 5 mg Propranolol HCl (Inderal La -) 60 mg PO DAILY [facility] Last Admin: 12/07/18 09:54 Dose: 60 mg Simethicone (Mylicon -) 80 mg PO TID [facility] Last Admin: 12/07/18 13:23 Dose: Not Given - Objective Vital Signs: Vital Signs Temperature 98.3 F 12/07/18 18:00 Pulse Rate 62 12/07/18 18:00 Respiratory Rate 18 12/07/18 18:00 Blood Pressure 91/45 L 12/07/18 18:00 O2 Sat by Pulse Oximetry (%) 95 12/06/18 20:34 Constitutional: Yes: No Distress, Calm, Obese Eyes: Yes: Conjunctiva Clear, EOM Intact HENT: Yes: Atraumatic, Normocephalic Gastrointestinal: Yes: Soft, Abdomen, Obese, Distention (some, with some upper tympany), Tenderness (more right than left-sided and some incisional). No: Tenderness, Rebound Extremities: No: Cool, Cyanosis Integumentary: Yes: Incision (midline). No: Erythema, Jaundice, Rash Wound/Incision: Yes: Well Approximated (in upper portion, skin healed together) , Steri Strips (on upper part of incision - removed), Dressing Dry and Intact ( on lower pole), Dressing Removed (and yellow and hidalgo drainage noted on dressing) , Draining (yellow/hidalgo fluid, mostly expressible from upper incision down out of lower pole wound), Unapproximated (lower pole aspect, granulating, pink base) , Other (see separate procedure note - remainder of incision opened under local , packed; fascia appears intact along length). No: Reddened Neurological: Yes: Alert, Oriented Labs: CBC, BMP 12/07/18 07:20 12/07/18 07:20 CMP Sodium 133 mmol/L (136-145) L 12/07/18 07:20 Potassium 4.2 mmol/L (3.5-5.1) 12/07/18 07:20 Chloride 97 mmol/L (98-107) L 12/07/18 07:20 Carbon Dioxide 29 mmol/L (21-32) 12/07/18 07:20 Anion Gap 7 MMOL/L (8-16) L 12/07/18 07:20 BUN 41 mg/dL (7-18) H 12/07/18 07:20 Creatinine 1.7 mg/dL (0.55-1.3) H 12/07/18 07:20 Creat Clearance w eGFR 29.38 (>60) 12/07/18 07:20 POC Glucometer 163 UNITS (80-120) 12/07/18 06:21 Random Glucose 145 mg/dL (74-106) H 12/07/18 07:20 Hemoglobin A1c % 8.9 % (4.2-6.3) H 11/17/18 06:40 Lactic Acid 1.3 mmol/L (0.4-2.0) 11/19/18 22:35 Calcium 7.9 mg/dL (8.5-10.1) L 12/07/18 07:20 Phosphorus 4.2 mg/dL (2.5-4.9) 12/05/18 09:20 Magnesium 2.2 mg/dL (1.8-2.4) 12/05/18 09:20 Ferritin 115.9 ng/ml (8-388) 12/07/18 07:20 Total Bilirubin 0.5 mg/dL (0.2-1) 12/07/18 07:20 AST 36 U/L (15-37) 12/07/18 07:20 ALT 24 U/L (13-61) 12/07/18 07:20 Alkaline Phosphatase 327 U/L (45-117) H 12/07/18 07:20 LD Total 152 U/L (84-246) 11/19/18 20:00 Troponin I 0.03 ng/ml (0.00-0.05) 11/16/18 14:18 C-Reactive Protein 5.7 MG/DL (0.00-0.3) H 11/29/18 05:30 Total Protein 5.9 g/dl (6.4-8.2) L 12/07/18 07:20 Albumin 1.6 g/dl (3.4-5.0) L 12/07/18 07:20 Total Amylase 50 U/L (25-115) 11/19/18 20:00 Lipase 154 U/L (73-393) 11/19/18 20:00 Vitamin B12 312 pg/ml (193-986) 12/07/18 07:20 TSH 1.10 uIU/ml (0.358-3.74) 12/07/18 07:20 Free T4 1.41 ng/dl (0.76-1.46) 12/07/18 07:20 Cortisol AM Sample 8.7 ug/dL (6.2-19.4) 12/04/18 05:30 ACTH 2.2 PG/ML (7.2-63.3) L 12/04/18 05:30 BUN/Cr higher - NS started Hb down a bit, getting 1u PRBC - ....Imaging Cat Scan: Image Reviewed (images reviewed and discussed with Dr. Fong ( radiology) - contrast through small bowel to ileocecal junction, no evidence of extravasation or contrast above fascia; area of wound visible, mesh underneath fascia noted; no hernia noted in midline, no clear signs of any fistula) Problem List - Problems (1) Intestinal adhesions with partial obstruction Assessment/Plan: POD17 s/p extensive lysis of adhesions and RUQ incisional hernia repair s/p hepaticojejunostomy in past with intestinal reconstruction - with dilated/ stagnant loop of anastomotic area had small enterotomy repaired in proximal SB with small yellow fluid leakage, minimal contamination midline incision with superficial wound infection leading to residual fluid collection in subcutaneous tissues rest of incision opened under local - see separate note packed with saline-gauze for now will change tomorrow and plan likely VAC application Sunday will need to adjust plans for VNS, who will need to do VAC changes 3x weekly most likely will update d/c plan after Sunday NPO except meds for now - will reassess tomorrow with dressing change po pain meds prn - tylenol first line - oxycodone breakthrough, and will add morphine tonight just in case continue simethicone and reglan trend labs, replete lytes prn ok for OOB to chair and ambulation as able discussed with Mateo Whaley Code(s): K56.51 - INTESTINAL ADHESIONS [BANDS], WITH PARTIAL OBSTRUCTION (2) Infection following a procedure, superficial incisional surgical site, initial encounter Assessment/Plan: lower pole of incision was being packed daily with saline-damp gauze almost entire wound now open, culture taken packed with saline gauze will plan for VAC unless there appears to be any further drainage suggestive of underlying fistula pt will need VNS on d/c home for VAC changes/wound care will update d/c plan on Sunday Code(s): T81.41XA - INFCT FOL A PROC, SUPERFIC INCISIONAL SURGICAL SITE, INIT (3) Incisional hernia, without obstruction or gangrene Code(s): K43.2 - INCISIONAL HERNIA WITHOUT OBSTRUCTION OR GANGRENE (4) Atrial fibrillation with RVR Assessment/Plan: cardiology following HR controlled on po meds keep lytes repleted Eliquis on hold for now Code(s): I48.91 - UNSPECIFIED ATRIAL FIBRILLATION (5) Hypertension Assessment/Plan: cardio managing, on po meds Code(s): I10 - ESSENTIAL (PRIMARY) HYPERTENSION Qualifiers: Hypertension type: essential hypertension Qualified Code(s): I10 - Essential (primary) hypertension (6) Diabetes mellitus type 2 in obese Assessment/Plan: endo following 24h urine collection taken for incidental adrenal mass noted on CT Code(s): E11.69 - TYPE 2 DIABETES MELLITUS WITH OTHER SPECIFIED COMPLICATION; E66.9 - OBESITY, UNSPECIFIED (7) S/P ureteral stent placement Assessment/Plan: urology following renal ultrasound done stent management per uro - pt may need laser lithotripsy with stent removal as outpatient, off anticoagulation Code(s): Z96.0 - PRESENCE OF UROGENITAL IMPLANTS (8) Gout Assessment/Plan: home med resumed Code(s): M10.9 - GOUT, UNSPECIFIED Qualifiers: Gout site: toe Gout etiology: unspecified cause Chronicity: unspecified Laterality: unspecified laterality Qualified Code(s): M10.9 - Gout, unspecified (9) CKD (chronic kidney disease) stage 3, GFR 30-59 ml/min Assessment/Plan: nephrology following BUN/Cr up more IVF resumed while NPO for now, got blood today trend labs Code(s): N18.3 - CHRONIC KIDNEY DISEASE, STAGE 3 (MODERATE)
--- NOTE | 2018-12-07 20:09 | PROC ---
Incision and Drainage Indication/Location: midline abdominal incision Risks and Benefits Explained: Yes Consent on Chart: No (pt gave verbal consent) Betadine cleansed: Yes Anesthesia: 1% Lidocaine (30ml) Blade Size: 10 Drainage: very little serous/yellow appearing fluid - culture taken, also healthy bleeding from wound edges Irrigated with Normal Saline: No Plain packing: No (saline-damp 4x4 gauze packing left) Sterile Dressing Applied: Yes (covered with dry gauze and folded ABD) - Remarks Remarks: procedure done with assistance of nursing staff Betadine prepped upper aspect of incision infiltrated with local anesthetic incision reopened with scalpel starting in upper/middle portion culture taken from deepest aspect just above fascia before remaining length fully opened small amount of yellowish fluid noted, no carina pus, no fluid emanating from below fascial level fascia with suture appeared intact along entire length few small bits of fat necrosis, couple of bits of loose pale tissue removed with gauze wound edges with healthy bleeding silver nitrate used along skin edges and alonso for hemostasis additional local used in lower aspect just above open lower pole later in procedure wound reopened all the way to open lower pole, leaving one long open wound measured about 19 x 4 x 3.5cm deep at end saline-damp 4x4 gauze used to pack/fill in wound, covered with gauze and ABD, tape to hold pt given 4mg morphine IVP toward end of procedure with improved pain control over local alone
[2018-12-07] MEDS ORDERED: INSULIN (LEVEMIR) 100 UNITS/ML UNITS SQ SCH (20:12)
[2018-12-07] MEDS: ATORVASTATIN CA 10 MG TABLET (FP) PO SCH (21:22)
[2018-12-08] MEDS: METOCLOPRAMIDE HCL 10 MG TABLET (FP) PO SCH ×3 (06:13→17:09)
[2018-12-08] MEDS: SIMETHICONE 80 MG TAB.CHEW (FP) PO SCH ×3 (06:13→22:14)
[2018-12-08] MEDS: INSULIN SLIDING SCALE (NOVOLOG) 1 VIAL SQ SCH ×4 (06:14→22:15)
[2018-12-08 06:58] LABS: SERUM IRON SATURATION 6 % (15-55); TOTAL IRON BINDING CAPACITY 153 ug/dL (250-450); UIBC 144 ug/dL (118-369)
[2018-12-08 07:31] LABS: BASO % 0.7 % (0-2.0); EOS % 2.1 % (0-4.5); HEMATOCRIT 23.8 % (32.4-45.2); HEMOGLOBIN 7.8 GM/dL (10.7-15.3); LYMPH % 15.5 % (8-40); MCH 26.8 pg (25.7-33.7); MCHC 32.8 g/dl (32.0-36.0); MEAN CELL VOLUME 81.7 fl (80-96); MEAN PLT VOLUME 8.9 fl (7.5-11.1); MONO % 12.6 % (3.8-10.2); NEUT % 69.1 % (42.8-82.8); PLATELET COUNT 396 K/MM3 (134-434); RBC 2.91 M/mm3 (3.60-5.2); RDW 18.5 % (11.6-15.6); WHITE BLOOD COUNT 7.1 K/mm3 (4.0-10.0)
[2018-12-08 08:19] LABS: ALBUMIN 1.6 g/dl (3.4-5.0); ALK PHOS 264 U/L (45-117); ANION GAP 5 MMOL/L (8-16); BILIRUBIN,TOTAL 0.7 mg/dL (0.2-1); BLOOD UREA NITROGEN 41 mg/dL (7-18); CALCIUM 7.5 mg/dL (8.5-10.1); CHLORIDE 100 mmol/L (98-107); CO2 29 mmol/L (21-32); CREATININE 1.6 mg/dL (0.55-1.3); GLUCOSE,RANDOM 105 mg/dL (74-106); MAGNESIUM 2.6 mg/dL (1.8-2.4); PHOSPHOROUS 4.6 mg/dL (2.5-4.9); POTASSIUM 4.8 mmol/L (3.5-5.1); SGOT/AST 19 U/L (15-37); SGPT/ALT 17 U/L (13-61); SODIUM 134 mmol/L (136-145); TOT PROT 5.9 g/dl (6.4-8.2)
[2018-12-08] MEDS: MAGNESIUM OXIDE 400 MG TABLET (FP) PO SCH (09:04)
[2018-12-08] MEDS: ALLOPURINOL 100 MG TABLET (FP) PO SCH (09:04)
[2018-12-08] MEDS: oxyCODONE HCL 5 MG TABLET PO PRN (09:05)
[2018-12-08] MEDS: ACETAMINOPHEN 325 MG TABLET (FP) PO PRN ×3 (09:05→22:15)
[2018-12-08] MEDS: cloNIDine HCL 0.1 MG TABLET PO SCH ×2 (09:06→22:14)
--- NOTE | 2018-12-08 09:51 | PN ---
Progress Note, Physician Chief Complaint: Abdominal pain SBP vs Cecal Volvulus History of Present Illness: NAD Feeling slightly better passing flatus no BM today Appetite appropriate Seen by Surgery-abdominal incision yesterday investigate wound, cultures done and pending CT bad/pelvis done-results pending Diet changed to low sodium Seen by Endocrinology POD17 s/p extensive lysis of adhesions and RUQ incisional hernia repair s/p hepaticojejunostomy in past with intestinal reconstruction - with dilated/ stagnant loop of anastomotic area had small enterotomy repaired in proximal SB with small yellow fluid leakage, minimal contamination - Current Medication List Current Medications: Active Medications Acetaminophen (Tylenol -) 650 mg PO Q4H PRN PRN Reason: Pain Level 4 - 10 Last Admin: 12/08/18 09:05 Dose: 650 mg Allopurinol (Zyloprim -) 100 mg PO DAILY [facility] Last Admin: 12/08/18 09:04 Dose: 100 mg Atorvastatin Calcium (Lipitor -) 10 mg PO HS [facility] Last Admin: 12/07/18 21:22 Dose: 10 mg Bisacodyl (Dulcolax -) 10 mg PO HS PRN PRN Reason: CONSTIPATION Clonidine (Catapres -) 0.1 mg PO BID [facility] Last Admin: 12/08/18 09:06 Dose: 0.1 mg Diltiazem HCl (Cardizem Injection -) 10 mg IVPUSH Q4H PRN PRN Reason: TACHYCARDIA Last Admin: 11/26/18 17:37 Dose: 10 mg Diltiazem HCl (Cardizem Cd -) 360 mg PO DAILY [facility] Last Admin: 12/08/18 09:06 Dose: 360 mg Diphenhydramine HCl (Benadryl Injection -) 25 mg IVPB Q6H PRN PRN Reason: ITCHING Sodium Chloride (Normal Saline -) 1,000 mls @ 100 mls/hr IV ASDIR [facility] Last Admin: 12/07/18 17:09 Dose: 100 mls/hr Insulin Aspart (Novolog Vial Sliding Scale -) 1 vial SQ ACHS [facility]; Protocol Last Admin: 12/08/18 06:14 Dose: Not Given Magnesium Oxide (Mag-Ox -) 400 mg PO BID [facility] Last Admin: 12/08/18 09:04 Dose: 400 mg Metoclopramide HCl (Reglan -) 10 mg PO TIDAC [facility] Last Admin: 12/08/18 06:13 Dose: 10 mg Morphine Sulfate (Morphine Sulfate) 2 mg IVPUSH Q4H PRN PRN Reason: Pain Level 8 - 10 BREAKTHROUGH Ondansetron HCl (Zofran Injection) 4 mg IVPUSH Q4H PRN PRN Reason: NAUSEA AND/OR VOMITING Last Admin: 11/25/18 06:39 Dose: 4 mg Oxycodone HCl (Roxicodone -) 5 mg PO Q4H PRN PRN Reason: Pain Level 8-10 BREAKTHROUGH Last Admin: 12/08/18 09:05 Dose: 5 mg Propranolol HCl (Inderal La -) 60 mg PO DAILY [facility] Last Admin: 12/08/18 09:07 Dose: 60 mg Simethicone (Mylicon -) 80 mg PO TID [facility] Last Admin: 12/08/18 06:13 Dose: 80 mg - Objective Vital Signs: Vital Signs Temperature 97.6 F 12/08/18 08:27 Pulse Rate 57 L 12/08/18 08:27 Respiratory Rate 18 12/08/18 08:27 Blood Pressure 126/65 12/08/18 08:27 O2 Sat by Pulse Oximetry (%) 95 12/08/18 08:00 Constitutional: Yes: Well Nourished, No Distress, Calm Cardiovascular: Yes: Regular Rate and Rhythm Respiratory: Yes: Regular Gastrointestinal: Yes: Tenderness (incisional) Musculoskeletal: Yes: Muscle Weakness Extremities: Yes: WNL Edema: No Peripheral Pulses WNL: Yes Neurological: Yes: Alert, Oriented Psychiatric: Yes: Alert, Oriented Labs: CBC, BMP 12/08/18 05:40 12/08/18 05:40 INR, PTT INR 1.19 (0.82-1.09) 11/16/18 14:35 Problem List - Problems (1) Atrial fibrillation with RVR Assessment/Plan: -rate controlled -tele monitoring -continue Cardizem and Eliquis -cardiology on board Code(s): I48.91 - UNSPECIFIED ATRIAL FIBRILLATION (2) CKD (chronic kidney disease) stage 3, GFR 30-59 ml/min Assessment/Plan: -Cr improving -monitor trend -renal on board Code(s): N18.3 - CHRONIC KIDNEY DISEASE, STAGE 3 (MODERATE) (3) Diabetes mellitus type 2 in obese Assessment/Plan: -BGM ACHS -Novolog sliding scale -HgA1c 8.9% -Diabetic low sodium diet -RD consult -Adjusted levemir to 20 U HS -D/C Januval Code(s): E11.69 - TYPE 2 DIABETES MELLITUS WITH OTHER SPECIFIED COMPLICATION; E66.9 - OBESITY, UNSPECIFIED (4) Generalized abdominal pain Assessment/Plan: -Abdomen and Pelvic CT scan shows abnormal cecal position but no evidence of volvulus, abnormal ileal loops possibly representing enteritis -Meckel scan shows no scintigraphic evidence of Meckel diverticulum containing ectopic gastric mucosa -S/p laparatomy with extensive lysis of adhesion and suture repair of RUQ incisional hernia -pain management -NPO at this time except meds -surgery on board -GI on board -zofran prn for nausea -Reglan TID AC Code(s): R10.84 - GENERALIZED ABDOMINAL PAIN (5) Hypertension Assessment/Plan: -BP at goal -continue Propanolol and cardizem -Low sodium diabetic diet -Clonidine restarted -cardiology on board Code(s): I10 - ESSENTIAL (PRIMARY) HYPERTENSION Qualifiers: Hypertension type: essential hypertension Qualified Code(s): I10 - Essential (primary) hypertension (6) Hypomagnesemia Assessment/Plan: -RESOLVED -monitor trend Code(s): E83.42 - HYPOMAGNESEMIA (7) Anemia Assessment/Plan: -H/H mildly improved -Transfuse 1 unit PRBC today -Labs: B12 low-replenish -FA, TSH,FT4-unrmarkable -Iron studies-low Fe%-Venofer 300 mg daily x 3 doses, then please start ferrous sulfate daily upon discharge -stool OB ordered -monitor trend Code(s): D64.9 - ANEMIA, UNSPECIFIED Assessment/Plan see problem list physical therapy D/C plan to be updated on Sunday Wound vac+ VNS
--- NOTE | 2018-12-08 10:39 | PN ---
Progress Note, Physician History of Present Illness: No CV complaints today GI complaints Tele: discontinued - Current Medication List Current Medications: Active Medications Acetaminophen (Tylenol -) 650 mg PO Q4H PRN PRN Reason: Pain Level 4 - 10 Last Admin: 12/08/18 09:05 Dose: 650 mg Allopurinol (Zyloprim -) 100 mg PO DAILY [facility] Last Admin: 12/08/18 09:04 Dose: 100 mg Atorvastatin Calcium (Lipitor -) 10 mg PO HS [facility] Last Admin: 12/07/18 21:22 Dose: 10 mg Bisacodyl (Dulcolax -) 10 mg PO HS PRN PRN Reason: CONSTIPATION Clonidine (Catapres -) 0.1 mg PO BID [facility] Last Admin: 12/08/18 09:06 Dose: 0.1 mg Cyanocobalamin (Vitamin B12 Injection -) 1,000 mcg IM DAILY [facility] Diltiazem HCl (Cardizem Injection -) 10 mg IVPUSH Q4H PRN PRN Reason: TACHYCARDIA Last Admin: 11/26/18 17:37 Dose: 10 mg Diltiazem HCl (Cardizem Cd -) 360 mg PO DAILY [facility] Last Admin: 12/08/18 09:06 Dose: 360 mg Diphenhydramine HCl (Benadryl Injection -) 25 mg IVPB Q6H PRN PRN Reason: ITCHING Sodium Chloride (Normal Saline -) 1,000 mls @ 100 mls/hr IV ASDIR [facility] Last Admin: 12/07/18 17:09 Dose: 100 mls/hr Iron Sucrose 300 mg/ Sodium (Chloride) 250 mls @ 166.667 mls/hr IVPB DAILY [facility] Stop: 12/10/18 11:29 Insulin Aspart (Novolog Vial Sliding Scale -) 1 vial SQ ACHS [facility]; Protocol Last Admin: 12/08/18 06:14 Dose: Not Given Magnesium Oxide (Mag-Ox -) 400 mg PO BID [facility] Last Admin: 12/08/18 09:04 Dose: 400 mg Metoclopramide HCl (Reglan -) 10 mg PO TIDAC [facility] Last Admin: 12/08/18 06:13 Dose: 10 mg Morphine Sulfate (Morphine Sulfate) 2 mg IVPUSH Q4H PRN PRN Reason: Pain Level 8 - 10 BREAKTHROUGH Ondansetron HCl (Zofran Injection) 4 mg IVPUSH Q4H PRN PRN Reason: NAUSEA AND/OR VOMITING Last Admin: 11/25/18 06:39 Dose: 4 mg Oxycodone HCl (Roxicodone -) 5 mg PO Q4H PRN PRN Reason: Pain Level 8-10 BREAKTHROUGH Last Admin: 12/08/18 09:05 Dose: 5 mg Propranolol HCl (Inderal La -) 60 mg PO DAILY [facility] Last Admin: 12/08/18 09:07 Dose: 60 mg Simethicone (Mylicon -) 80 mg PO TID [facility] Last Admin: 12/08/18 06:13 Dose: 80 mg - Objective Vital Signs: Vital Signs Temperature 97.6 F 12/08/18 08:27 Pulse Rate 57 L 12/08/18 08:27 Respiratory Rate 18 12/08/18 08:27 Blood Pressure 126/65 12/08/18 08:27 O2 Sat by Pulse Oximetry (%) 95 12/08/18 08:00 Constitutional: Yes: Well Nourished, No Distress Eyes: Yes: WNL HENT: Yes: WNL Neck: Yes: WNL Cardiovascular: Yes: Pulse Irregular Respiratory: Yes: CTA Bilaterally Gastrointestinal: Yes: Tenderness (Surical incision dressing clean) Extremities: Yes: WNL Edema: No Labs: CBC, BMP 12/08/18 05:40 12/08/18 05:40 INR, PTT INR 1.19 (0.82-1.09) 11/16/18 14:35 Assessment/Plan afib - in post op setting after ex lap, PAN - 11/25: converted spontaneously now to sinus - 11/26: overnight converted back to afib with RVR, dilt gtt was started, initially poor IV access now has been running, no improvement with additional lopressor 5 mg IV this morning. replete K and Mg, digoxin 0.125 mg IV x 1 ordered, cont dilt gtt - 11/27: started diltiazem 60 mg PO Q6H, increase to 90 mg Q6H, start propranolol 20 mg Q6H, uptitrate as tolerated, wean dilt gtt as tolerated -11/28-7: rate controlled on po meds. eliquis started. -12/02-12: sinus. continue diltiazem CD 360 mg daily, propranolol LA 60 mg daily. -12/07: soft BPs, hgb trending down. surgery f/u. hold eliquis until anemia stabilizes. -12/08: Hgb 7.8, agree with holding DOAC until hgb more stable SBO s/p ex lap, PAN -doing well post op from surgical pov. d/c planning underway -H/H down today, surgery f/u -holding eliquis for now, as above HTN -chronically suboptimal BP control at home -has been on mult meds including clonidine at home -lisinopril, chlorthalidone held here in setting of CHACHA, clonidine continued -hi dose diltiazem plus low dose propranolol started here to control rapid AF -12/07: bp's soft at present. decr clonidine 0.2 TID to 0.1 BID. continue other meds -hgb down, r/o postop bleeding--per surgery -12/08: BP well controlled this AM. Continue Cardizem 360 and Clonidine 0.1mg BID. pulm HTN, chronic diastolic HF - mild to mod, likely 2/2 diastolic CHF - appears euvolemic DM - manage per primary HLD - continue statin
[2018-12-08] MEDS: IRON SUCROSE INJECTION 300 MG in SODIUM CHLORIDE 235 ML IVPB SCH (11:30)
[2018-12-08] MEDS: CYANOCOBALAMIN (VITAMIN B-12) 1000 MCG/1 ML VIAL IM SCH (11:50)
--- NOTE | 2018-12-08 12:09 | PN ---
Progress Note, Physician History of Present Illness: 72yo female PMH morbid obesity, HTN, HLD, DM, CKD, gout, on daily asa, spends part of her [place] in [place] and was there from June until 11/06/18, where she had left ureteral stent placed earlier this month. s/p Exp laparotomy lysis of adhesions - Current Medication List Current Medications: Active Medications Acetaminophen (Tylenol -) 650 mg PO Q4H PRN PRN Reason: Pain Level 4 - 10 Last Admin: 12/08/18 09:05 Dose: 650 mg Allopurinol (Zyloprim -) 100 mg PO DAILY [facility] Last Admin: 12/08/18 09:04 Dose: 100 mg Atorvastatin Calcium (Lipitor -) 10 mg PO HS [facility] Last Admin: 12/07/18 21:22 Dose: 10 mg Bisacodyl (Dulcolax -) 10 mg PO HS PRN PRN Reason: CONSTIPATION Clonidine (Catapres -) 0.1 mg PO BID [facility] Last Admin: 12/08/18 09:06 Dose: 0.1 mg Cyanocobalamin (Vitamin B12 Injection -) 1,000 mcg IM DAILY [facility] Last Admin: 12/08/18 11:50 Dose: 1,000 mcg Diltiazem HCl (Cardizem Injection -) 10 mg IVPUSH Q4H PRN PRN Reason: TACHYCARDIA Last Admin: 11/26/18 17:37 Dose: 10 mg Diltiazem HCl (Cardizem Cd -) 360 mg PO DAILY [facility] Last Admin: 12/08/18 09:06 Dose: 360 mg Diphenhydramine HCl (Benadryl Injection -) 25 mg IVPB Q6H PRN PRN Reason: ITCHING Sodium Chloride (Normal Saline -) 1,000 mls @ 100 mls/hr IV ASDIR [facility] Last Admin: 12/07/18 17:09 Dose: 100 mls/hr Iron Sucrose 300 mg/ Sodium (Chloride) 250 mls @ 166.667 mls/hr IVPB DAILY [facility] Stop: 12/10/18 11:29 Last Admin: 12/08/18 11:30 Dose: 166.667 mls/hr Insulin Aspart (Novolog Vial Sliding Scale -) 1 vial SQ ACHS [facility]; Protocol Last Admin: 12/08/18 11:31 Dose: Not Given Magnesium Oxide (Mag-Ox -) 400 mg PO BID [facility] Last Admin: 12/08/18 09:04 Dose: 400 mg Metoclopramide HCl (Reglan -) 10 mg PO TIDAC [facility] Last Admin: 12/08/18 11:31 Dose: Not Given Morphine Sulfate (Morphine Sulfate) 2 mg IVPUSH Q4H PRN PRN Reason: Pain Level 8 - 10 BREAKTHROUGH Ondansetron HCl (Zofran Injection) 4 mg IVPUSH Q4H PRN PRN Reason: NAUSEA AND/OR VOMITING Last Admin: 11/25/18 06:39 Dose: 4 mg Oxycodone HCl (Roxicodone -) 5 mg PO Q4H PRN PRN Reason: Pain Level 8-10 BREAKTHROUGH Last Admin: 12/08/18 09:05 Dose: 5 mg Propranolol HCl (Inderal La -) 60 mg PO DAILY [facility] Last Admin: 12/08/18 09:07 Dose: 60 mg Simethicone (Mylicon -) 80 mg PO TID [facility] Last Admin: 12/08/18 06:13 Dose: 80 mg - Objective Vital Signs: Vital Signs Temperature 97.6 F 12/08/18 08:27 Pulse Rate 57 L 12/08/18 08:27 Respiratory Rate 18 12/08/18 08:27 Blood Pressure 126/65 12/08/18 08:27 O2 Sat by Pulse Oximetry (%) 95 12/08/18 08:00 Constitutional: Yes: No Distress, Calm, Obese Eyes: Yes: Conjunctiva Clear, EOM Intact HENT: Yes: Atraumatic, Normocephalic Neck: Yes: Supple, Trachea Midline Cardiovascular: Yes: Regular Rate and Rhythm, S1, S2 Respiratory: Yes: Regular, CTA Bilaterally Gastrointestinal: Yes: Normal Bowel Sounds, Soft, Abdomen, Obese. No: Tenderness ...Rectal Exam: Yes: Deferred Genitourinary: No: CVA Tenderness - Left, CVA Tenderness - Right Musculoskeletal: No: Muscle Pain, Muscle Weakness Extremities: No: Cool, Cyanosis Edema: No Peripheral Pulses WNL: Yes Peripheral Pulses: Left Radial: 2+, Right Radial: 2+, Left Doralis Pedis: 2+, Right Dorsalis Pedis: 2+, Left Femoral: 2+, Right Femoral: 2+ Integumentary: No: Incision, Jaundice, Tattoos Wound/Incision: Yes: Clean/Dry, Draining (maybe soft yellow feculent), Unapproximated Neurological: Yes: Alert, Oriented Psychiatric: Yes: Alert, Oriented Labs: CBC, BMP 12/08/18 05:40 12/08/18 05:40 INR, PTT INR 1.19 (0.82-1.09) 11/16/18 14:35 Problem List - Problems (1) Incisional hernia, without obstruction or gangrene Assessment/Plan: POD#18 s/p Exp Lap and PAN, possible EC fistula formation NPO and IVF hydration trend labs and replete electrolytes VAC dressing optimize nutrition Dr. Rodney will evaluate Code(s): K43.2 - INCISIONAL HERNIA WITHOUT OBSTRUCTION OR GANGRENE
[2018-12-08] MEDS: MORPHINE SULFATE 2 MG/ML VIAL IVPUSH PRN (14:15)
--- NOTE | 2018-12-08 15:10 | PN ---
Progress Note, Physician History of Present Illness: POD18 s/p extensive lysis of intestinal adhesions for developing SBO, with suture repair of small RUQ incisional hernia from inside, with findings of previous intestinal reconstruction, hepaticojejunostomy, done years ago after post-cholecystectomy complications per pt. Pt postop had new onset of afib with RVR and was transferred to telemetry, now rate controlled on po meds. She was tolerating soft diabetic diet, though with marginal po intake at times. Ambulating, voiding, + bowel function, but with gas pains - taking reglan and simethicone regularly. Lower pole of abdominal incision was opened when abhay removed for spontaneous drainage, and packed. Yesterday, there was more yellow drainage than previously, with a concern of possible sb fistula... CT was done with po contrast, showing no clear signs of any contrast leakage above the fascia or out of the bowel. The rest of the incision was reopened yesterday by me, cultured, and packed with saline-damp gauze. Was made NPO except meds with IVF back on, now is hungry. She is seen initially in the solarium then examined back in bed with daughter present. Pain is better today, had tylenol this morning, just took some now in anticipation of dressing change. Also given 2mg morphine while in bed preemptively. - Current Medication List Current Medications: Active Medications Acetaminophen (Tylenol -) 650 mg PO Q4H PRN PRN Reason: Pain Level 4 - 10 Last Admin: 12/08/18 13:52 Dose: 650 mg Allopurinol (Zyloprim -) 100 mg PO DAILY [facility] Last Admin: 12/08/18 09:04 Dose: 100 mg Atorvastatin Calcium (Lipitor -) 10 mg PO HS [facility] Last Admin: 12/07/18 21:22 Dose: 10 mg Bisacodyl (Dulcolax -) 10 mg PO HS PRN PRN Reason: CONSTIPATION Clonidine (Catapres -) 0.1 mg PO BID [facility] Last Admin: 12/08/18 09:06 Dose: 0.1 mg Cyanocobalamin (Vitamin B12 Injection -) 1,000 mcg IM DAILY [facility] Last Admin: 12/08/18 11:50 Dose: 1,000 mcg Diltiazem HCl (Cardizem Injection -) 10 mg IVPUSH Q4H PRN PRN Reason: TACHYCARDIA Last Admin: 11/26/18 17:37 Dose: 10 mg Diltiazem HCl (Cardizem Cd -) 360 mg PO DAILY [facility] Last Admin: 12/08/18 09:06 Dose: 360 mg Diphenhydramine HCl (Benadryl Injection -) 25 mg IVPB Q6H PRN PRN Reason: ITCHING Sodium Chloride (Normal Saline -) 1,000 mls @ 100 mls/hr IV ASDIR [facility] Last Admin: 12/07/18 17:09 Dose: 100 mls/hr Iron Sucrose 300 mg/ Sodium (Chloride) 250 mls @ 166.667 mls/hr IVPB DAILY [facility] Stop: 12/10/18 11:29 Last Admin: 12/08/18 11:30 Dose: 166.667 mls/hr Insulin Aspart (Novolog Vial Sliding Scale -) 1 vial SQ ACHS [facility]; Protocol Last Admin: 12/08/18 11:31 Dose: Not Given Magnesium Oxide (Mag-Ox -) 400 mg PO DAILY [facility] Metoclopramide HCl (Reglan -) 10 mg PO TIDAC [facility] Last Admin: 12/08/18 11:31 Dose: Not Given Morphine Sulfate (Morphine Sulfate) 2 mg IVPUSH Q4H PRN PRN Reason: Pain Level 8 - 10 BREAKTHROUGH Ondansetron HCl (Zofran Injection) 4 mg IVPUSH Q4H PRN PRN Reason: NAUSEA AND/OR VOMITING Last Admin: 11/25/18 06:39 Dose: 4 mg Oxycodone HCl (Roxicodone -) 5 mg PO Q4H PRN PRN Reason: Pain Level 8-10 BREAKTHROUGH Last Admin: 12/08/18 09:05 Dose: 5 mg Propranolol HCl (Inderal La -) 60 mg PO DAILY [facility] Last Admin: 12/08/18 09:07 Dose: 60 mg Simethicone (Mylicon -) 80 mg PO TID [facility] Last Admin: 12/08/18 13:51 Dose: Not Given - Objective Vital Signs: Vital Signs Temperature 98 F 12/08/18 14:45 Pulse Rate 59 L 12/08/18 14:45 Respiratory Rate 18 12/08/18 14:45 Blood Pressure 126/61 12/08/18 14:45 O2 Sat by Pulse Oximetry (%) 95 12/08/18 08:00 Vital Signs Period Temp Pulse Resp BP Sys/Pascual Pulse Ox Last 24 Hr 97.6 F-98.3 F 54-63 18-18 91-126/45-65 95-95 Intake & Output 12/07/18 12/08/18 12/08/18 23:59 07:59 15:59 Intake Total 350 1000 Output Total 600 Balance -250 1000 Intake: IV 1000 Normal Saline - 1,000 ml 1000 @ 100 mls/hr IV ASDIR [facility] Rx#:[id number] Packed Cells 350 Output: Urine 600 Void 600 Other: Voiding Method Toilet Toilet # Unmeasured Voids Void 1 Constitutional: Yes: No Distress, Calm, Obese Eyes: Yes: Conjunctiva Clear, EOM Intact HENT: Yes: Atraumatic, Normocephalic Gastrointestinal: Yes: Soft, Abdomen, Obese, Distention (less, minimal tympany today), Tenderness (mild at right side and incisional) Extremities: No: Cool, Cyanosis Integumentary: Yes: Incision (midline). No: Jaundice, Rash Wound/Incision: Yes: Dressing Dry and Intact (nurse had replaced outer dressing/ abd pad earlier), Dressing Removed (little serosang/clear pink on upper portion of dressing, yellow/ochre on lower part of gauze with some hobson pigmented smears on exposed fascia and gauze over), Unapproximated (17 x 5 x 2.7cm, with slight undermining at superior and inferior corners; clean over upper and lowermost parts of wound with areas of pink granulation; silver nitrate artifact /black tissue present residually, fascia with intact suture visible along wound base, though there is a segment in lower half which appears necrotic, soft, - tissue beneath fascia visible there but no fluid welling up; dark yellow staining in this area, some wipes off, possible EC fistula underlying? may be overlying upper portion of in situ previous mesh (between fascia and peritoneum)), Other (VAC applied with white and black foam - see below). No: Reddened Neurological: Yes: Alert, Oriented. No: Unsteady Gait Labs: CBC, BMP 12/08/18 05:40 12/08/18 05:40 Mg 2.6 high Problem List - Problems (1) Intestinal adhesions with partial obstruction Assessment/Plan: POD18 s/p extensive lysis of adhesions and RUQ incisional hernia repair s/p hepaticojejunostomy in past with intestinal reconstruction - with dilated/ stagnant loop of anastomotic area had small enterotomy repaired in proximal SB with small yellow fluid leakage, minimal contamination midline incision with superficial wound infection leading to residual fluid collection in subcutaneous tissues rest of incision opened under local yesterday now with possible enterocutaneous fistula see below - VAC placed continue NPO except meds - may need to consider IV nutrition in several days po pain meds prn - tylenol first line - oxycodone breakthrough, morphine last line continue simethicone and reglan trend labs, monitor lytes mag ox decreased discussed with Mateo Whaley Code(s): K56.51 - INTESTINAL ADHESIONS [BANDS], WITH PARTIAL OBSTRUCTION (2) Infection following a procedure, superficial incisional surgical site, initial encounter Assessment/Plan: VAC placed with strip of white foam overlying wound base, exposed fascia then strip of black foam, with larger black foam 'bridge' over that for trac- pad to attach good seal obtained at -125mm continuous pressure will plan to change Sunday and reassess wound f/u culture from yesterday keep NPO except meds for now Code(s): T81.41XA - INFCT FOL A PROC, SUPERFIC INCISIONAL SURGICAL SITE, INIT (3) Incisional hernia, without obstruction or gangrene Code(s): K43.2 - INCISIONAL HERNIA WITHOUT OBSTRUCTION OR GANGRENE (4) Atrial fibrillation with RVR Assessment/Plan: cardiology following HR controlled on po meds keep lytes repleted Eliquis on hold for now Code(s): I48.91 - UNSPECIFIED ATRIAL FIBRILLATION (5) Hypertension Assessment/Plan: cardio managing, on po meds Code(s): I10 - ESSENTIAL (PRIMARY) HYPERTENSION Qualifiers: Hypertension type: essential hypertension Qualified Code(s): I10 - Essential (primary) hypertension (6) Diabetes mellitus type 2 in obese Assessment/Plan: endo following will need to adjust possible standing insulin while NPO - d/c'd yesterday 24h urine collection taken for incidental adrenal mass noted on CT Code(s): E11.69 - TYPE 2 DIABETES MELLITUS WITH OTHER SPECIFIED COMPLICATION; E66.9 - OBESITY, UNSPECIFIED (7) S/P ureteral stent placement Assessment/Plan: urology following renal ultrasound done stent management per uro - pt may need laser lithotripsy with stent removal as outpatient, off anticoagulation Code(s): Z96.0 - PRESENCE OF UROGENITAL IMPLANTS (8) Gout Assessment/Plan: home med resumed Code(s): M10.9 - GOUT, UNSPECIFIED Qualifiers: Gout site: toe Gout etiology: unspecified cause Chronicity: unspecified Laterality: unspecified laterality Qualified Code(s): M10.9 - Gout, unspecified (9) CKD (chronic kidney disease) stage 3, GFR 30-59 ml/min Assessment/Plan: nephrology following BUN/Cr stable IVF resumed while NPO for now trend labs Code(s): N18.3 - CHRONIC KIDNEY DISEASE, STAGE 3 (MODERATE) (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
[2018-12-08] MEDS: SODIUM CHLORIDE 1,000 ML IV SCH (15:53)
--- NOTE | 2018-12-08 20:23 | PN ---
Progress Note (short form) - Note Progress Note: sbo s/p resection chacha she is still npo Current Medications Acetaminophen (Tylenol -) 650 mg PO Q4H PRN PRN Reason: Pain Level 4 - 10 Last Admin: 12/08/18 13:52 Dose: 650 mg Allopurinol (Zyloprim -) 100 mg PO DAILY [facility] Last Admin: 12/08/18 09:04 Dose: 100 mg Atorvastatin Calcium (Lipitor -) 10 mg PO HS [facility] Last Admin: 12/07/18 21:22 Dose: 10 mg Bisacodyl (Dulcolax -) 10 mg PO HS PRN PRN Reason: CONSTIPATION Clonidine (Catapres -) 0.1 mg PO BID [facility] Last Admin: 12/08/18 09:06 Dose: 0.1 mg Cyanocobalamin (Vitamin B12 Injection -) 1,000 mcg IM DAILY [facility] Last Admin: 12/08/18 11:50 Dose: 1,000 mcg Diltiazem HCl (Cardizem Injection -) 10 mg IVPUSH Q4H PRN PRN Reason: TACHYCARDIA Last Admin: 11/26/18 17:37 Dose: 10 mg Diltiazem HCl (Cardizem Cd -) 360 mg PO DAILY [facility] Last Admin: 12/08/18 09:06 Dose: 360 mg Diphenhydramine HCl (Benadryl Injection -) 25 mg IVPB Q6H PRN PRN Reason: ITCHING Sodium Chloride (Normal Saline -) 1,000 mls @ 100 mls/hr IV ASDIR [facility] Last Admin: 12/08/18 15:53 Dose: 100 mls/hr Iron Sucrose 300 mg/ Sodium (Chloride) 250 mls @ 166.667 mls/hr IVPB DAILY [facility] Stop: 12/10/18 11:29 Last Admin: 12/08/18 11:30 Dose: 166.667 mls/hr Insulin Aspart (Novolog Vial Sliding Scale -) 1 vial SQ ACHS [facility]; Protocol Last Admin: 12/08/18 17:08 Dose: Not Given Magnesium Oxide (Mag-Ox -) 400 mg PO DAILY [facility] Metoclopramide HCl (Reglan -) 10 mg PO TIDAC [facility] Last Admin: 12/08/18 17:09 Dose: Not Given Morphine Sulfate (Morphine Sulfate) 2 mg IVPUSH Q4H PRN PRN Reason: Pain Level 8 - 10 BREAKTHROUGH Last Admin: 12/08/18 14:15 Dose: 2 mg Ondansetron HCl (Zofran Injection) 4 mg IVPUSH Q4H PRN PRN Reason: NAUSEA AND/OR VOMITING Last Admin: 11/25/18 06:39 Dose: 4 mg Oxycodone HCl (Roxicodone -) 5 mg PO Q4H PRN PRN Reason: Pain Level 8-10 BREAKTHROUGH Last Admin: 12/08/18 09:05 Dose: 5 mg Propranolol HCl (Inderal La -) 60 mg PO DAILY [facility] Last Admin: 12/08/18 09:07 Dose: 60 mg Simethicone (Mylicon -) 80 mg PO TID [facility] Last Admin: 12/08/18 13:51 Dose: Not Given Last Vital Signs Temp Pulse Resp BP Pulse Ox 97.4 F L 55 L 20 102/64 95 12/08/18 18:00 12/08/18 18:00 12/08/18 18:00 12/08/18 18:00 12/08/18 08:00 alert in nad currently npo Lungs clear Heart reg Abd soft Ext no edema CBC, BMP 12/08/18 05:40 12/08/18 05:40 IMP- CKD s/p CHACHA post op renal function remains stable continue IVF while she is npo she will need nutrition if npo continues into 5 days
[2018-12-08] MEDS: ATORVASTATIN CA 10 MG TABLET (FP) PO SCH (22:14)
[2018-12-09] MEDS: SODIUM CHLORIDE 1,000 ML IV SCH ×2 (03:00→13:00)
[2018-12-09] MEDS: MORPHINE SULFATE 2 MG/ML VIAL IVPUSH PRN ×2 (05:00→18:07)
[2018-12-09] MEDS: SIMETHICONE 80 MG TAB.CHEW (FP) PO SCH ×3 (05:06→22:14)
[2018-12-09] MEDS: INSULIN SLIDING SCALE (NOVOLOG) 1 VIAL SQ SCH ×4 (06:16→22:13)
[2018-12-09] MEDS: METOCLOPRAMIDE HCL 10 MG TABLET (FP) PO SCH ×3 (06:17→17:44)
[2018-12-09 06:33] LABS: BASO % 0.6 % (0-2.0); EOS % 2.1 % (0-4.5); HEMATOCRIT 25.2 % (32.4-45.2); HEMOGLOBIN 8.4 GM/dL (10.7-15.3); LYMPH % 12.5 % (8-40); MCH 26.9 pg (25.7-33.7); MCHC 33.2 g/dl (32.0-36.0); MEAN CELL VOLUME 80.8 fl (80-96); MEAN PLT VOLUME 8.7 fl (7.5-11.1); MONO % 13.1 % (3.8-10.2); NEUT % 71.7 % (42.8-82.8); PLATELET COUNT 399 K/MM3 (134-434); RBC 3.12 M/mm3 (3.60-5.2); RDW 19.2 % (11.6-15.6)
[2018-12-09 06:53] LABS: ALBUMIN 1.7 g/dl (3.4-5.0); ALK PHOS 249 U/L (45-117); ANION GAP 8 MMOL/L (8-16); BILIRUBIN,TOTAL 0.5 mg/dL (0.2-1); BLOOD UREA NITROGEN 32 mg/dL (7-18); CALCIUM 7.9 mg/dL (8.5-10.1); CHLORIDE 104 mmol/L (98-107); CO2 27 mmol/L (21-32); CREATININE 1.4 mg/dL (0.55-1.3); GLUCOSE,RANDOM 122 mg/dL (74-106); MAGNESIUM 2.5 mg/dL (1.8-2.4); POTASSIUM 4.9 mmol/L (3.5-5.1); SGOT/AST 13 U/L (15-37); SGPT/ALT 16 U/L (13-61); SODIUM 139 mmol/L (136-145); TOT PROT 6.3 g/dl (6.4-8.2)
[2018-12-09] MEDS: ALLOPURINOL 100 MG TABLET (FP) PO SCH (09:51)
[2018-12-09] MEDS: IRON SUCROSE INJECTION 300 MG in SODIUM CHLORIDE 235 ML IVPB SCH (09:52)
[2018-12-09] MEDS: MAGNESIUM OXIDE 400 MG TABLET (FP) PO SCH (09:52)
[2018-12-09] MEDS: cloNIDine HCL 0.1 MG TABLET PO SCH ×2 (09:52→22:14)
--- NOTE | 2018-12-09 12:30 | PN ---
Progress Note (short form) - Note Progress Note: Renal follow up for CHACHA Pt seen and examined at the bedside is NPO currently on IVF denies any sob, cp, N/V/D making urine Vital Signs Temperature 97.7 F 12/09/18 10:00 Pulse Rate 54 L 12/09/18 10:00 Respiratory Rate 22 H 12/09/18 10:00 Blood Pressure 127/66 12/09/18 10:00 O2 Sat by Pulse Oximetry (%) 98 12/09/18 09:00 Intake & Output 12/06/18 12/07/18 12/08/18 12/09/18 23:59 23:59 23:59 23:59 Intake Total 316 687 2492 1460 Output Total 600 500 300 Balance 810 -041 695 5020 NAD RRR CTA slight abd tenderness No Le edema CBC, BMP 12/09/18 05:30 12/09/18 05:30 Current Medications Acetaminophen (Tylenol -) 650 mg PO Q4H PRN PRN Reason: Pain Level 4 - 10 Last Admin: 12/08/18 22:15 Dose: 650 mg Allopurinol (Zyloprim -) 100 mg PO DAILY [facility] Last Admin: 12/09/18 09:51 Dose: 100 mg Atorvastatin Calcium (Lipitor -) 10 mg PO HS [facility] Last Admin: 12/08/18 22:14 Dose: 10 mg Bisacodyl (Dulcolax -) 10 mg PO HS PRN PRN Reason: CONSTIPATION Clonidine (Catapres -) 0.1 mg PO BID [facility] Last Admin: 12/09/18 09:52 Dose: 0.1 mg Cyanocobalamin (Vitamin B12 Injection -) 1,000 mcg IM DAILY [facility] Last Admin: 12/08/18 11:50 Dose: 1,000 mcg Diltiazem HCl (Cardizem Injection -) 10 mg IVPUSH Q4H PRN PRN Reason: TACHYCARDIA Last Admin: 11/26/18 17:37 Dose: 10 mg Diltiazem HCl (Cardizem Cd -) 360 mg PO DAILY [facility] Last Admin: 12/09/18 09:52 Dose: 360 mg Diphenhydramine HCl (Benadryl Injection -) 25 mg IVPB Q6H PRN PRN Reason: ITCHING Sodium Chloride (Normal Saline -) 1,000 mls @ 100 mls/hr IV ASDIR [facility] Last Admin: 12/09/18 03:00 Dose: 100 mls/hr Iron Sucrose 300 mg/ Sodium (Chloride) 250 mls @ 166.667 mls/hr IVPB DAILY [facility] Stop: 12/10/18 11:29 Last Admin: 12/09/18 09:52 Dose: 166.667 mls/hr Insulin Aspart (Novolog Vial Sliding Scale -) 1 vial SQ ACHS [facility]; Protocol Last Admin: 12/09/18 06:16 Dose: Not Given Magnesium Oxide (Mag-Ox -) 400 mg PO DAILY [facility] Last Admin: 12/09/18 09:52 Dose: 400 mg Metoclopramide HCl (Reglan -) 10 mg PO TIDAC [facility] Last Admin: 12/09/18 06:17 Dose: 10 mg Morphine Sulfate (Morphine Sulfate) 2 mg IVPUSH Q4H PRN PRN Reason: Pain Level 8 - 10 BREAKTHROUGH Last Admin: 12/09/18 05:00 Dose: 2 mg Ondansetron HCl (Zofran Injection) 4 mg IVPUSH Q4H PRN PRN Reason: NAUSEA AND/OR VOMITING Last Admin: 11/25/18 06:39 Dose: 4 mg Oxycodone HCl (Roxicodone -) 5 mg PO Q4H PRN PRN Reason: Pain Level 8-10 BREAKTHROUGH Last Admin: 12/08/18 09:05 Dose: 5 mg Propranolol HCl (Inderal La -) 60 mg PO DAILY [facility] Last Admin: 12/09/18 09:52 Dose: 60 mg Simethicone (Mylicon -) 80 mg PO TID [facility] Last Admin: 12/09/18 05:06 Dose: 80 mg 72 year old woman with hx of CKD, Nephrolithiasis, DM who presented with Abd pain secondary to SBO s/p surgical intervention with CHACHA. #Recurrent CHACHA #SBO s/p OR #Abd wound infection Renal function stable on IVF continue isotonic saline for now, decrease rate to 83cc per hour advance diet as per surgery Thank you Ethan Ram DO
--- NOTE | 2018-12-09 12:56 | PN ---
Progress Note, Physician History of Present Illness: POD19 s/p extensive lysis of intestinal adhesions for developing SBO, with suture repair of small RUQ incisional hernia from inside, with findings of previous intestinal reconstruction, hepaticojejunostomy, done years ago after post-cholecystectomy complications per pt. Pt postop had new onset of afib with RVR and was transferred to telemetry, now in sinus and rate controlled on po meds. She was tolerating soft diabetic diet, though with marginal po intake at times. Ambulating, voiding, no BM since CT scan Sunday per pt. Abd pain at times, managing with tylenol prn, oxycodone/morphine as breakthrough. Lower pole of abdominal incision was opened when abhay were removed for spontaneous drainage, and packed. Over the weekend, there was more yellow drainage than previously, with a concern of possible sb fistula. CT with po contrast showed no contrast leakage above the fascia or out of the bowel. The rest of the incision was reopened, cultured, and packed; VAC was placed yesterday with white foam at base over fascia. She is NPO except meds with IVF. Seen and examined sitting in chair. Pain has been a little better. She did take morphine once this morning, had tylenol about 3 hrs ago. Ready to get up and walk some, sit in solarium for a while. - Current Medication List Current Medications: Active Medications Acetaminophen (Tylenol -) 650 mg PO Q4H PRN PRN Reason: Pain Level 4 - 10 Last Admin: 12/08/18 22:15 Dose: 650 mg Allopurinol (Zyloprim -) 100 mg PO DAILY [facility] Last Admin: 12/09/18 09:51 Dose: 100 mg Atorvastatin Calcium (Lipitor -) 10 mg PO HS [facility] Last Admin: 12/08/18 22:14 Dose: 10 mg Bisacodyl (Dulcolax Suppository -) 10 mg UT ONCE ONE Stop: 12/09/18 16:01 Clonidine (Catapres -) 0.1 mg PO BID [facility] Last Admin: 12/09/18 09:52 Dose: 0.1 mg Cyanocobalamin (Vitamin B12 Injection -) 1,000 mcg IM DAILY [facility] Last Admin: 12/08/18 11:50 Dose: 1,000 mcg Diltiazem HCl (Cardizem Injection -) 10 mg IVPUSH Q4H PRN PRN Reason: TACHYCARDIA Last Admin: 11/26/18 17:37 Dose: 10 mg Diltiazem HCl (Cardizem Cd -) 360 mg PO DAILY [facility] Last Admin: 12/09/18 09:52 Dose: 360 mg Diphenhydramine HCl (Benadryl Injection -) 25 mg IVPB Q6H PRN PRN Reason: ITCHING Iron Sucrose 300 mg/ Sodium (Chloride) 250 mls @ 166.667 mls/hr IVPB DAILY [facility] Stop: 12/10/18 11:29 Last Admin: 12/09/18 09:52 Dose: 166.667 mls/hr Sodium Chloride (Normal Saline -) 1,000 mls @ 83 mls/hr IV ASDIR [facility] Insulin Aspart (Novolog Vial Sliding Scale -) 1 vial SQ ACHS [facility]; Protocol Last Admin: 12/09/18 06:16 Dose: Not Given Magnesium Oxide (Mag-Ox -) 400 mg PO DAILY [facility] Last Admin: 12/09/18 09:52 Dose: 400 mg Metoclopramide HCl (Reglan -) 10 mg PO TIDAC [facility] Last Admin: 12/09/18 06:17 Dose: 10 mg Morphine Sulfate (Morphine Sulfate) 2 mg IVPUSH Q4H PRN PRN Reason: Pain Level 8 - 10 BREAKTHROUGH Last Admin: 12/09/18 05:00 Dose: 2 mg Ondansetron HCl (Zofran Injection) 4 mg IVPUSH Q4H PRN PRN Reason: NAUSEA AND/OR VOMITING Last Admin: 11/25/18 06:39 Dose: 4 mg Oxycodone HCl (Roxicodone -) 5 mg PO Q4H PRN PRN Reason: Pain Level 8-10 BREAKTHROUGH Last Admin: 12/08/18 09:05 Dose: 5 mg Propranolol HCl (Inderal La -) 60 mg PO DAILY [facility] Last Admin: 12/09/18 09:52 Dose: 60 mg Simethicone (Mylicon -) 80 mg PO TID [facility] Last Admin: 12/09/18 05:06 Dose: 80 mg - Objective Vital Signs: Vital Signs Temperature 97.7 F 12/09/18 10:00 Pulse Rate 54 L 12/09/18 10:00 Respiratory Rate 22 H 12/09/18 10:00 Blood Pressure 127/66 12/09/18 10:00 O2 Sat by Pulse Oximetry (%) 98 12/09/18 09:00 Vital Signs Period Temp Pulse Resp BP Sys/Pascual Pulse Ox Last 24 Hr 97.4 F-98 F 54-59 18-22 102-130/61-66 95-98 Constitutional: Yes: No Distress, Calm, Obese Eyes: Yes: Conjunctiva Clear, EOM Intact HENT: Yes: Atraumatic, Normocephalic Gastrointestinal: Yes: Soft, Abdomen, Obese, Distention (with some upper tympany , though soft), Tenderness (mild, more right than left, also incisional) Extremities: No: Cool, Cyanosis Integumentary: Yes: Incision (midline w/VAC). No: Jaundice, Rash Wound/Incision: Yes: Dressing Dry and Intact (VAC intact at -125mm pressure), Draining (syed/brown fluid in tubing, about 100ml in canister). No: Dressing Removed Neurological: Yes: Alert, Oriented Labs: CBC, BMP 12/09/18 05:30 12/09/18 05:30 Mg 2.5 BUN/Cr coming back down wbc normal Microbiology 12/07/18 20:15 Gram Stain - Final Incision Wound Culture - Preliminary Group D Strep Or Entero Coccus Lactose Fermenting Neg Bacilli Yeast Like Organism - ....Imaging Cat Scan: Report Reviewed (from Sunday - discussed with Dr. Fong. No CT evidence of fistula, no contrast extravasation; couple tiny locules of air at fascial interface of wound; also mild increase in left hydronephrosis noted) Problem List - Problems (1) Intestinal adhesions with partial obstruction Assessment/Plan: POD19 s/p extensive lysis of adhesions and RUQ incisional hernia repair s/p hepaticojejunostomy in past with intestinal reconstruction - with dilated/ stagnant loop of anastomotic area had small enterotomy repaired in proximal SB with small yellow fluid leakage, minimal contamination POD2 s/p complex I&D of postop wound infection presumed enterocutaneous fistula VAC placed yesterday will change tomorrow continue NPO except meds with IVF - may need to consider IV nutrition in several days, possibly complete NPO, depending on wound status and output pain meds prn - tylenol first line - oxycodone breakthrough, morphine last line continue simethicone and reglan for now trend labs, monitor lytes will give suppository to stimulate bowel function - anticipate loose stool when oral contrast comes through will discuss with Dr. Medrano discussed with Kiera of CM Code(s): K56.51 - INTESTINAL ADHESIONS [BANDS], WITH PARTIAL OBSTRUCTION (2) Infection following a procedure, superficial incisional surgical site, initial encounter Assessment/Plan: VAC placed with white foam at wound base/exposed fascia, then black foam maintaining seal at -125mm continuous pressure will change tomorrow and reassess wound f/u culture - growing few organisms but wound is open, wbc normal Code(s): T81.41XA - INFCT FOL A PROC, SUPERFIC INCISIONAL SURGICAL SITE, INIT (3) Enterocutaneous fistula Code(s): K63.2 - FISTULA OF INTESTINE (4) Persistent postprocedural fistula, initial encounter Assessment/Plan: presumed enteric content - yellow drainage in wound will monitor closely NPO x meds white foam over wound base for VAC Code(s): T81.83XA - PERSISTENT POSTPROCEDURAL FISTULA, INITIAL ENCOUNTER (5) Incisional hernia, without obstruction or gangrene Code(s): K43.2 - INCISIONAL HERNIA WITHOUT OBSTRUCTION OR GANGRENE (6) Atrial fibrillation with RVR Assessment/Plan: cardiology following in sinus and HR controlled on po meds keep lytes repleted Eliquis on hold for now may need to revert to all IV meds if need to go complete NPO for fistula treatment..will assess over next few days discussed with Dr. Perry Code(s): I48.91 - UNSPECIFIED ATRIAL FIBRILLATION (7) Hypertension Assessment/Plan: cardio managing, on po meds Code(s): I10 - ESSENTIAL (PRIMARY) HYPERTENSION Qualifiers: Hypertension type: essential hypertension Qualified Code(s): I10 - Essential (primary) hypertension (8) Diabetes mellitus type 2 in obese Assessment/Plan: endo following currently off insulin, sugars much less, in better range Code(s): E11.69 - TYPE 2 DIABETES MELLITUS WITH OTHER SPECIFIED COMPLICATION; E66.9 - OBESITY, UNSPECIFIED (9) S/P ureteral stent placement Assessment/Plan: urology following stent management per uro - pt may need laser lithotripsy with stent removal?, off anticoagulation mild increase in left hydronephrosis on Sunday's CT Code(s): Z96.0 - PRESENCE OF UROGENITAL IMPLANTS (10) Gout Assessment/Plan: home med resumed Code(s): M10.9 - GOUT, UNSPECIFIED Qualifiers: Gout site: toe Gout etiology: unspecified cause Chronicity: unspecified Laterality: unspecified laterality Qualified Code(s): M10.9 - Gout, unspecified (11) CKD (chronic kidney disease) stage 3, GFR 30-59 ml/min Assessment/Plan: nephrology following BUN/Cr coming back down IVF resumed while NPO for now trend labs Code(s): N18.3 - CHRONIC KIDNEY DISEASE, STAGE 3 (MODERATE)
--- NOTE | 2018-12-09 13:42 | PN ---
Progress Note (short form) - Note Progress Note: s: abd pain improving. no chest pain, palps, dizziness, dyspnea. Current Medications Acetaminophen (Tylenol -) 650 mg PO Q4H PRN PRN Reason: Pain Level 4 - 10 Last Admin: 12/08/18 22:15 Dose: 650 mg Allopurinol (Zyloprim -) 100 mg PO DAILY [facility] Last Admin: 12/09/18 09:51 Dose: 100 mg Atorvastatin Calcium (Lipitor -) 10 mg PO HS [facility] Last Admin: 12/08/18 22:14 Dose: 10 mg Bisacodyl (Dulcolax Suppository -) 10 mg RC ONCE ONE Stop: 12/09/18 16:01 Clonidine (Catapres -) 0.1 mg PO BID [facility] Last Admin: 12/09/18 09:52 Dose: 0.1 mg Cyanocobalamin (Vitamin B12 Injection -) 1,000 mcg IM DAILY [facility] Last Admin: 12/08/18 11:50 Dose: 1,000 mcg Diltiazem HCl (Cardizem Injection -) 10 mg IVPUSH Q4H PRN PRN Reason: TACHYCARDIA Last Admin: 11/26/18 17:37 Dose: 10 mg Diltiazem HCl (Cardizem Cd -) 360 mg PO DAILY [facility] Last Admin: 12/09/18 09:52 Dose: 360 mg Diphenhydramine HCl (Benadryl Injection -) 25 mg IVPB Q6H PRN PRN Reason: ITCHING Iron Sucrose 300 mg/ Sodium (Chloride) 250 mls @ 166.667 mls/hr IVPB DAILY [facility] Stop: 12/10/18 11:29 Last Admin: 12/09/18 09:52 Dose: 166.667 mls/hr Sodium Chloride (Normal Saline -) 1,000 mls @ 83 mls/hr IV ASDIR [facility] Insulin Aspart (Novolog Vial Sliding Scale -) 1 vial SQ ACHS [facility]; Protocol Last Admin: 12/09/18 06:16 Dose: Not Given Magnesium Oxide (Mag-Ox -) 400 mg PO DAILY [facility] Last Admin: 12/09/18 09:52 Dose: 400 mg Metoclopramide HCl (Reglan -) 10 mg PO TIDAC [facility] Last Admin: 12/09/18 06:17 Dose: 10 mg Morphine Sulfate (Morphine Sulfate) 2 mg IVPUSH Q4H PRN PRN Reason: Pain Level 8 - 10 BREAKTHROUGH Last Admin: 12/09/18 05:00 Dose: 2 mg Ondansetron HCl (Zofran Injection) 4 mg IVPUSH Q4H PRN PRN Reason: NAUSEA AND/OR VOMITING Last Admin: 11/25/18 06:39 Dose: 4 mg Oxycodone HCl (Roxicodone -) 5 mg PO Q4H PRN PRN Reason: Pain Level 8-10 BREAKTHROUGH Last Admin: 12/08/18 09:05 Dose: 5 mg Propranolol HCl (Inderal La -) 60 mg PO DAILY [facility] Last Admin: 12/09/18 09:52 Dose: 60 mg Simethicone (Mylicon -) 80 mg PO TID [facility] Last Admin: 12/09/18 05:06 Dose: 80 mg Vital Signs Period Temp Pulse Resp BP Sys/Pascual Pulse Ox Last 24 Hr 97.4 F-98 F 54-59 18-22 102-130/61-66 95-98 Constitutional: Yes: Well Nourished, No Distress, Calm Cardiovascular: Yes: Regular Rate and Rhythm, S1, S2. No: Gallop, Murmur Respiratory: Yes: Regular, CTA Bilaterally. No: Accessory Muscle Use, Rales, Wheezes Extremities: No: Cold Edema: Yes (1+ ankles) Neurological: Yes: Alert, Oriented Psychiatric: No: Agitated Assessment/Plan EKG: initial sinus, LVH, first deg AVB EKG 11/22 afib with RVR rate 135 bpm echo 11/2016 LV mildly dilated, nl LV function, sigmoid septum, RV nl, LA severely dilated, RA mildly enlarged, mild MR, mild TR, at least mild pulm HTN, RVSP at least 42 mmHg tele: NSR, artifact afib - in post op setting after ex lap, PAN - 11/25: converted spontaneously now to sinus - 11/26: overnight converted back to afib with RVR, dilt gtt was started, initially poor IV access now has been running, no improvement with additional lopressor 5 mg IV this morning. replete K and Mg, digoxin 0.125 mg IV x 1 ordered, cont dilt gtt - 11/27: started diltiazem 60 mg PO Q6H, increase to 90 mg Q6H, start propranolol 20 mg Q6H, uptitrate as tolerated, wean dilt gtt as tolerated -11/28-: rate controlled on po meds. eliquis started. -12/02-12: sinus. continue diltiazem CD 360 mg daily, propranolol LA 60 mg daily. -12/07: soft BPs, hgb trending down. surgery f/u. hold eliquis until anemia stabilizes. -12/08: Hgb 7.8, agree with holding DOAC until hgb more stable - 12/09: holding eliquis continue diltiazem and propranolol, HR stable SBO s/p ex lap, PAN -doing well post op from surgical pov. d/c planning underway -H/H down today, surgery f/u -holding eliquis for now, as above HTN -chronically suboptimal BP control at home -has been on mult meds including clonidine at home -lisinopril, chlorthalidone held here in setting of CHACHA, clonidine continued -hi dose diltiazem plus low dose propranolol started here to control rapid AF -12/07: bp's soft at present. decr clonidine 0.2 TID to 0.1 BID. continue other meds -hgb down, r/o postop bleeding--per surgery - Continue Cardizem 360 and Clonidine 0.1mg BID. pulm HTN, chronic diastolic HF - mild to mod, likely 2/2 diastolic CHF - appears euvolemic DM - manage per primary HLD - continue statin
--- NOTE | 2018-12-09 14:48 | PN ---
Progress Note, Physician Chief Complaint: patient seen and examined - Current Medication List Current Medications: Active Medications Acetaminophen (Tylenol -) 650 mg PO Q4H PRN PRN Reason: Pain Level 4 - 10 Last Admin: 12/08/18 22:15 Dose: 650 mg Allopurinol (Zyloprim -) 100 mg PO DAILY [facility] Last Admin: 12/09/18 09:51 Dose: 100 mg Atorvastatin Calcium (Lipitor -) 10 mg PO HS [facility] Last Admin: 12/08/18 22:14 Dose: 10 mg Bisacodyl (Dulcolax Suppository -) 10 mg RC ONCE ONE Stop: 12/09/18 16:01 Clonidine (Catapres -) 0.1 mg PO BID [facility] Last Admin: 12/09/18 09:52 Dose: 0.1 mg Cyanocobalamin (Vitamin B12 Injection -) 1,000 mcg IM DAILY [facility] Last Admin: 12/08/18 11:50 Dose: 1,000 mcg Diltiazem HCl (Cardizem Injection -) 10 mg IVPUSH Q4H PRN PRN Reason: TACHYCARDIA Last Admin: 11/26/18 17:37 Dose: 10 mg Diltiazem HCl (Cardizem Cd -) 360 mg PO DAILY [facility] Last Admin: 12/09/18 09:52 Dose: 360 mg Diphenhydramine HCl (Benadryl Injection -) 25 mg IVPB Q6H PRN PRN Reason: ITCHING Iron Sucrose 300 mg/ Sodium (Chloride) 250 mls @ 166.667 mls/hr IVPB DAILY [facility] Stop: 12/10/18 11:29 Last Admin: 12/09/18 09:52 Dose: 166.667 mls/hr Sodium Chloride (Normal Saline -) 1,000 mls @ 83 mls/hr IV ASDIR [facility] Insulin Aspart (Novolog Vial Sliding Scale -) 1 vial SQ ACHS [facility]; Protocol Last Admin: 12/09/18 12:00 Dose: Not Given Magnesium Oxide (Mag-Ox -) 400 mg PO DAILY [facility] Last Admin: 12/09/18 09:52 Dose: 400 mg Metoclopramide HCl (Reglan -) 10 mg PO TIDAC [facility] Last Admin: 12/09/18 12:00 Dose: Not Given Morphine Sulfate (Morphine Sulfate) 2 mg IVPUSH Q4H PRN PRN Reason: Pain Level 8 - 10 BREAKTHROUGH Last Admin: 12/09/18 05:00 Dose: 2 mg Ondansetron HCl (Zofran Injection) 4 mg IVPUSH Q4H PRN PRN Reason: NAUSEA AND/OR VOMITING Last Admin: 11/25/18 06:39 Dose: 4 mg Oxycodone HCl (Roxicodone -) 5 mg PO Q4H PRN PRN Reason: Pain Level 8-10 BREAKTHROUGH Last Admin: 12/08/18 09:05 Dose: 5 mg Propranolol HCl (Inderal La -) 60 mg PO DAILY [facility] Last Admin: 12/09/18 09:52 Dose: 60 mg Simethicone (Mylicon -) 80 mg PO TID [facility] Last Admin: 12/09/18 05:06 Dose: 80 mg - Objective Vital Signs: Vital Signs Temperature 97.7 F 12/09/18 10:00 Pulse Rate 54 L 12/09/18 10:00 Respiratory Rate 22 H 12/09/18 10:00 Blood Pressure 127/66 12/09/18 10:00 O2 Sat by Pulse Oximetry (%) 98 12/09/18 09:00 Labs: CBC, BMP 12/09/18 05:30 12/09/18 05:30 INR, PTT INR 1.19 (0.82-1.09) 11/16/18 14:35 Problem List - Problems (1) Abdominal pain Assessment/Plan: Note: Operative Date: 11/20/18 Pre-Operative Diagnosis: small bowel obstruction, incisional hernia Operation: laparotomy with extensive lysis of adhesions (2 hours), suture repair of right upper quadrant incisional hernia iv zosyn Findings: mesh (Goretex?) in midline - partially divided, left in situ; matted loops of small bowel in right abdomen, incisional hernia RUQ and right lateral abdomen, evidence of previous Jackelin-en-Y bowel reconstruction with dilation of stagnant loop; tiny enterotomy made in proximal SB in RUQ, repaired with sutures with minimal leakage; no resection performed Post-Operative Diagnosis: Other (same as preop with stagnant Jackelin-en-Y bowel loop in RUQ, extensive intestinal adhesions) Surgeon: Neal Rodney Meter And Service Line Inspector: Jace Piña Anesthesiologist/SENIOR LOSS CONTROL SPECIALIST: Chuckie Nguyen Anesthesia: General, Local (20ML 0.5% marcaine) Specimens Removed: no resection Estimated Blood Loss (mls): 100 Drains & Tubes with Location: preop [place] NGT; Salas placed and left Drains, Volume Out (mls): 500 (UOP) Fluid Volume Replaced (mls): 1,800 (crystalloid) Operative Report Dictated: Yes patient had repeat ct scan possible fistula now NPO except meds wound vac in place in midline monitor lytes will needs parental nutrition if remians NPO for a few days Code(s): R10.9 - UNSPECIFIED ABDOMINAL PAIN Qualifiers: Abdominal location: unspecified location Qualified Code(s): R10.9 - Unspecified abdominal pain (2) Headache Assessment/Plan: ct head no acute infacts neurology- propanolol for JEREZ Code(s): R51 - HEADACHE (3) Atrial fibrillation with RVR Assessment/Plan: started on propanolol, cardizem HR controlled eliquis (4) S/P ureteral stent placement Assessment/Plan: seen by urology needs laser lithotripsy as an outpatient recal l urology for left hydronephrosis Code(s): Z96.0 - PRESENCE OF UROGENITAL IMPLANTS (5) Diabetes mellitus type 2 in obese Assessment/Plan: levemir dose per endocrine consult noted Code(s): E11.69 - TYPE 2 DIABETES MELLITUS WITH OTHER SPECIFIED COMPLICATION; E66.9 - OBESITY, UNSPECIFIED (6) Adrenal adenoma Assessment/Plan: dexa supression test 24 hr VMA follow up by endocrine - recalled Code(s): D35.00 - BENIGN NEOPLASM OF UNSPECIFIED ADRENAL GLAND
[2018-12-09] MEDS: CYANOCOBALAMIN (VITAMIN B-12) 1000 MCG/1 ML VIAL IM SCH (15:25)
[2018-12-09] MEDS ORDERED: BISACODYL 10 MG SUPP.RECT RC ONE (16:00)
[2018-12-09] MEDS: ATORVASTATIN CA 10 MG TABLET (FP) PO SCH (22:14)
[2018-12-09] MEDS: ACETAMINOPHEN 325 MG TABLET (FP) PO PRN (22:19)
--- NOTE | 2018-12-10 00:52 | PN ---
Progress Note, Physician Chief Complaint: post op improving sp surgery - Current Medication List Current Medications: Active Medications Acetaminophen (Tylenol -) 650 mg PO Q4H PRN PRN Reason: Pain Level 4 - 10 Last Admin: 12/09/18 22:19 Dose: 650 mg Allopurinol (Zyloprim -) 100 mg PO DAILY [facility] Last Admin: 12/09/18 09:51 Dose: 100 mg Atorvastatin Calcium (Lipitor -) 10 mg PO HS [facility] Last Admin: 12/09/18 22:14 Dose: 10 mg Clonidine (Catapres -) 0.1 mg PO BID [facility] Last Admin: 12/09/18 22:14 Dose: 0.1 mg Cyanocobalamin (Vitamin B12 Injection -) 1,000 mcg IM DAILY [facility] Last Admin: 12/09/18 15:25 Dose: 1,000 mcg Diltiazem HCl (Cardizem Injection -) 10 mg IVPUSH Q4H PRN PRN Reason: TACHYCARDIA Last Admin: 11/26/18 17:37 Dose: 10 mg Diltiazem HCl (Cardizem Cd -) 360 mg PO DAILY [facility] Last Admin: 12/09/18 09:52 Dose: 360 mg Diphenhydramine HCl (Benadryl Injection -) 25 mg IVPB Q6H PRN PRN Reason: ITCHING Iron Sucrose 300 mg/ Sodium (Chloride) 250 mls @ 166.667 mls/hr IVPB DAILY [facility] Stop: 12/10/18 11:29 Last Admin: 12/09/18 09:52 Dose: 166.667 mls/hr Sodium Chloride (Normal Saline -) 1,000 mls @ 83 mls/hr IV ASDIR [facility] Last Admin: 12/09/18 13:00 Dose: 83 mls/hr Insulin Aspart (Novolog Vial Sliding Scale -) 1 vial SQ ACHS [facility]; Protocol Last Admin: 12/09/18 22:13 Dose: Not Given Magnesium Oxide (Mag-Ox -) 400 mg PO DAILY [facility] Last Admin: 12/09/18 09:52 Dose: 400 mg Metoclopramide HCl (Reglan -) 10 mg PO TIDAC [facility] Last Admin: 12/09/18 17:44 Dose: Not Given Morphine Sulfate (Morphine Sulfate) 2 mg IVPUSH Q4H PRN PRN Reason: Pain Level 8 - 10 BREAKTHROUGH Last Admin: 12/09/18 18:07 Dose: 2 mg Ondansetron HCl (Zofran Injection) 4 mg IVPUSH Q4H PRN PRN Reason: NAUSEA AND/OR VOMITING Last Admin: 11/25/18 06:39 Dose: 4 mg Oxycodone HCl (Roxicodone -) 5 mg PO Q4H PRN PRN Reason: Pain Level 8-10 BREAKTHROUGH Last Admin: 12/08/18 09:05 Dose: 5 mg Propranolol HCl (Inderal La -) 60 mg PO DAILY [facility] Last Admin: 12/09/18 09:52 Dose: 60 mg Simethicone (Mylicon -) 80 mg PO TID [facility] Last Admin: 12/09/18 22:14 Dose: 80 mg - Objective Vital Signs: Vital Signs Temperature 97.9 F 12/09/18 14:00 Pulse Rate 57 L 12/09/18 14:00 Respiratory Rate 22 H 12/09/18 10:00 Blood Pressure 147/63 12/09/18 14:00 O2 Sat by Pulse Oximetry (%) 98 12/09/18 09:00 Constitutional: Yes: Calm Eyes: Yes: EOM Intact HENT: Yes: Normocephalic Neck: Yes: Trachea Midline Cardiovascular: Yes: Tachycardia Respiratory: Yes: CTA Bilaterally Gastrointestinal: Yes: Hypoactive Bowel Sounds ...Rectal Exam: Yes: Deferred Genitourinary: Yes: WNL Musculoskeletal: Yes: WNL Extremities: Yes: WNL Neurological: Yes: Alert, Oriented Labs: CBC, BMP 12/09/18 05:30 12/09/18 05:30 INR, PTT INR 1.19 (0.82-1.09) 11/16/18 14:35 Problem List - Problems (1) Adrenal adenoma Code(s): D35.00 - BENIGN NEOPLASM OF UNSPECIFIED ADRENAL GLAND (2) Atrial fibrillation with RVR Code(s): I48.91 - UNSPECIFIED ATRIAL FIBRILLATION (3) CKD (chronic kidney disease) stage 3, GFR 30-59 ml/min Code(s): N18.3 - CHRONIC KIDNEY DISEASE, STAGE 3 (MODERATE) (4) Constipation Code(s): K59.00 - CONSTIPATION, UNSPECIFIED (5) Diabetes mellitus type 2 in obese Code(s): E11.69 - TYPE 2 DIABETES MELLITUS WITH OTHER SPECIFIED COMPLICATION; E66.9 - OBESITY, UNSPECIFIED (6) Distended abdomen Code(s): R14.0 - ABDOMINAL DISTENSION (GASEOUS) (7) Diverticula of colon Code(s): K57.30 - DVRTCLOS OF LG INT W/O PERFORATION OR ABSCESS W/O BLEEDING (8) Generalized abdominal pain Code(s): R10.84 - GENERALIZED ABDOMINAL PAIN Assessment/Plan Current Active Problems Adrenal adenoma (Acute) Anemia (Acute) Atrial fibrillation with RVR (Acute) CKD (chronic kidney disease) stage 3, GFR 30-59 ml/min (Acute) Constipation (Acute) Diabetes mellitus type 2 in obese (Acute) Distended abdomen (Acute) Diverticula of colon (Acute) Enterocutaneous fistula (Acute) Generalized abdominal pain (Acute) Gout (Acute) Head ache (Acute) Headache (Acute) History of cholecystectomy (Acute) History of common bile duct surgery (Acute) Hypertension (Acute) Hypomagnesemia (Acute) Ileitis (Acute) Incisional hernia, without obstruction or gangrene (Acute) Infection following a procedure, superficial incisional surgical site, initial encounter (Acute) Intestinal adhesions with partial obstruction (Acute) New onset a-fib (Acute) Persistent postprocedural fistula, initial encounter (Acute) Pneumobilia (Acute) RUQ pain (Acute) S/P ureteral stent placement (Acute) Small bowel obstruction (Acute) Abnormal Lab Results 12/09/18 12/09/18 05:30 05:30 RBC 3.12 L Hgb 8.4 L Hct 25.2 L RDW 19.2 H Monocytes % 13.1 H BUN 32 H Creatinine 1.4 H Random Glucose 122 H Calcium 7.9 L Magnesium 2.5 H AST 13 L Alkaline Phosphatase 249 H Total Protein 6.3 L Albumin 1.7 L Laboratory Tests 12/04/18 12/04/18 05:30 05:30 Cortisol AM Sample 8.7 ACTH 2.2 L plan: failed dexa suppression test likely functioning adenoma vs stress causing failed suppresion will need outpatient dexa suppression test when stable continue bgm coverage
[2018-12-10] MEDS: ACETAMINOPHEN 325 MG TABLET (FP) PO PRN ×4 (05:14→18:48)
[2018-12-10] MEDS: SIMETHICONE 80 MG TAB.CHEW (FP) PO SCH ×3 (06:03→21:28)
[2018-12-10] MEDS: INSULIN SLIDING SCALE (NOVOLOG) 1 VIAL SQ SCH ×4 (06:03→21:30)
[2018-12-10 06:21] LABS: BASO % 0.7 % (0-2.0); HEMATOCRIT 26.1 % (32.4-45.2); HEMOGLOBIN 8.9 GM/dL (10.7-15.3); LYMPH % 8.3 % (8-40); MCH 27.6 pg (25.7-33.7); MCHC 34.2 g/dl (32.0-36.0); MEAN CELL VOLUME 80.7 fl (80-96); MEAN PLT VOLUME 8.2 fl (7.5-11.1); MONO % 14.2 % (3.8-10.2); NEUT % 75.8 % (42.8-82.8); PLATELET COUNT 439 K/MM3 (134-434); RBC 3.24 M/mm3 (3.60-5.2); RDW 19.4 % (11.6-15.6); WHITE BLOOD COUNT 6.6 K/mm3 (4.0-10.0)
[2018-12-10 06:42] LABS: ANION GAP 10 MMOL/L (8-16); BLOOD UREA NITROGEN 22 mg/dL (7-18); CALCIUM 8.1 mg/dL (8.5-10.1); CHLORIDE 105 mmol/L (98-107); CO2 23 mmol/L (21-32); CREATININE 1.1 mg/dL (0.55-1.3); GLUCOSE,RANDOM 128 mg/dL (74-106); MAGNESIUM 2.2 mg/dL (1.8-2.4); PHOSPHOROUS 3.4 mg/dL (2.5-4.9); POTASSIUM 4.5 mmol/L (3.5-5.1); SODIUM 138 mmol/L (136-145)
[2018-12-10] MEDS ORDERED: PT OWN MED DRAWER 7, Y5N ONE (09:26)
--- NOTE | 2018-12-10 10:04 | PN ---
Progress Note, Physician - Current Medication List Current Medications: Active Medications Acetaminophen (Tylenol -) 650 mg PO Q4H PRN PRN Reason: Pain Level 4 - 10 Last Admin: 12/10/18 08:29 Dose: 650 mg Allopurinol (Zyloprim -) 100 mg PO DAILY [facility] Last Admin: 12/09/18 09:51 Dose: 100 mg Atorvastatin Calcium (Lipitor -) 10 mg PO HS [facility] Last Admin: 12/09/18 22:14 Dose: 10 mg Clonidine (Catapres -) 0.1 mg PO BID [facility] Last Admin: 12/09/18 22:14 Dose: 0.1 mg Cyanocobalamin (Vitamin B12 Injection -) 1,000 mcg IM DAILY [facility] Last Admin: 12/09/18 15:25 Dose: 1,000 mcg Diltiazem HCl (Cardizem Injection -) 10 mg IVPUSH Q4H PRN PRN Reason: TACHYCARDIA Last Admin: 11/26/18 17:37 Dose: 10 mg Diltiazem HCl (Cardizem Cd -) 360 mg PO DAILY [facility] Last Admin: 12/09/18 09:52 Dose: 360 mg Diphenhydramine HCl (Benadryl Injection -) 25 mg IVPB Q6H PRN PRN Reason: ITCHING Iron Sucrose 300 mg/ Sodium (Chloride) 250 mls @ 166.667 mls/hr IVPB DAILY [facility] Stop: 12/10/18 11:29 Last Admin: 12/09/18 09:52 Dose: 166.667 mls/hr Sodium Chloride (Normal Saline -) 1,000 mls @ 83 mls/hr IV ASDIR [facility] Last Admin: 12/09/18 13:00 Dose: 83 mls/hr Insulin Aspart (Novolog Vial Sliding Scale -) 1 vial SQ ACHS [facility]; Protocol Last Admin: 12/10/18 06:03 Dose: Not Given Magnesium Oxide (Mag-Ox -) 400 mg PO DAILY [facility] Last Admin: 12/09/18 09:52 Dose: 400 mg Metoclopramide HCl (Reglan -) 10 mg PO TIDAC [facility] Last Admin: 12/09/18 17:44 Dose: Not Given Morphine Sulfate (Morphine Sulfate) 2 mg IVPUSH Q4H PRN PRN Reason: Pain Level 8 - 10 BREAKTHROUGH Last Admin: 12/09/18 18:07 Dose: 2 mg Ondansetron HCl (Zofran Injection) 4 mg IVPUSH Q4H PRN PRN Reason: NAUSEA AND/OR VOMITING Last Admin: 11/25/18 06:39 Dose: 4 mg Oxycodone HCl (Roxicodone -) 5 mg PO Q4H PRN PRN Reason: Pain Level 8-10 BREAKTHROUGH Last Admin: 12/08/18 09:05 Dose: 5 mg Propranolol HCl (Inderal La -) 60 mg PO DAILY [facility] Last Admin: 12/09/18 09:52 Dose: 60 mg Simethicone (Mylicon -) 80 mg PO TID [facility] Last Admin: 12/10/18 06:03 Dose: 80 mg - Objective Vital Signs: Vital Signs Temperature 97.8 F 12/10/18 06:00 Pulse Rate 59 L 12/10/18 06:00 Respiratory Rate 20 12/10/18 06:00 Blood Pressure 158/60 12/10/18 06:00 O2 Sat by Pulse Oximetry (%) 95 12/09/18 22:00 Cardiovascular: Yes: S1, S2 Respiratory: Yes: Regular, CTA Bilaterally Gastrointestinal: Yes: Soft ...Rectal Exam: Yes: Other (VAC DRESSING IN PLACE) Labs: CBC, BMP 12/10/18 05:30 12/10/18 05:30 INR, PTT INR 1.19 (0.82-1.09) 11/16/18 14:35 Problem List - Problems (1) Small bowel obstruction Code(s): K56.609 - UNSP INTESTNL OBST, UNSP TO PARTIAL VERSUS COMPLETE OBST (2) Atrial fibrillation with RVR Code(s): I48.91 - UNSPECIFIED ATRIAL FIBRILLATION (3) Head ache Code(s): R51 - HEADACHE (4) Diabetes mellitus type 2 in obese Code(s): E11.69 - TYPE 2 DIABETES MELLITUS WITH OTHER SPECIFIED COMPLICATION; E66.9 - OBESITY, UNSPECIFIED (5) Hypertension Code(s): I10 - ESSENTIAL (PRIMARY) HYPERTENSION Qualifiers: Hypertension type: essential hypertension Qualified Code(s): I10 - Essential (primary) hypertension (6) Hydronephrosis, left Code(s): N13.30 - UNSPECIFIED HYDRONEPHROSIS Assessment/Plan - Problems (1) Abdominal pain Assessment/Plan: Note: Operative Date: 11/20/18 Pre-Operative Diagnosis: small bowel obstruction, incisional hernia Operation: laparotomy with extensive lysis of adhesions (2 hours), suture repair of right upper quadrant incisional hernia iv zosyn Findings: mesh (Goretex?) in midline - partially divided, left in situ; matted loops of small bowel in right abdomen, incisional hernia RUQ and right lateral abdomen, evidence of previous Jackelin-en-Y bowel reconstruction with dilation of stagnant loop; tiny enterotomy made in proximal SB in RUQ, repaired with sutures with minimal leakage; no resection performed Post-Operative Diagnosis: Other (same as preop with stagnant Jackelin-en-Y bowel loop in RUQ, extensive intestinal adhesions) Surgeon: Neal Rodney Vp Compliance: Jace Piña Anesthesiologist/INSURANCE ADMINISTRATIVE ASSISTANT: Chuckie Nguyen Anesthesia: General, Local (20ML 0.5% marcaine) Specimens Removed: no resection Estimated Blood Loss (mls): 100 Drains & Tubes with Location: preop [place] NGT; Salas placed and left Drains, Volume Out (mls): 500 (UOP) Fluid Volume Replaced (mls): 1,800 (crystalloid) Operative Report Dictated: Yes patient had repeat ct scan possible fistula now NPO except meds wound vac in place in midline monitor lytes will needs parental nutrition if remains NPO for a few days Code(s): R10.9 - UNSPECIFIED ABDOMINAL PAIN Qualifiers: Abdominal location: unspecified location Qualified Code(s): R10.9 - Unspecified abdominal pain (2) Headache Assessment/Plan: ct head no acute infacts neurology- propanolol for JEREZ Code(s): R51 - HEADACHE (3) Atrial fibrillation with RVR Assessment/Plan: started on propanolol, cardizem HR controlled eliquis (4) S/P ureteral stent placement Assessment/Plan: seen by urology needs laser lithotripsy as an outpatient recall l urology for left hydronephrosis Code(s): Z96.0 - PRESENCE OF UROGENITAL IMPLANTS (5) Diabetes mellitus type 2 in obese Assessment/Plan: levemir dose per endocrine consult noted Code(s): E11.69 - TYPE 2 DIABETES MELLITUS WITH OTHER SPECIFIED COMPLICATION; E66.9 - OBESITY, UNSPECIFIED (6) Adrenal adenoma Assessment/Plan: dexa supression test 24 hr VMA follow up by endocrine - recalled Code(s): D35.00 - BENIGN NEOPLASM OF UNSPECIFIED ADRENAL GLAND
[2018-12-10] MEDS: METOCLOPRAMIDE HCL 10 MG TABLET (FP) PO SCH ×3 (10:20→17:28)
[2018-12-10] MEDS: ALLOPURINOL 100 MG TABLET (FP) PO SCH (10:22)
[2018-12-10] MEDS: CYANOCOBALAMIN (VITAMIN B-12) 1000 MCG/1 ML VIAL IM SCH (10:24)
[2018-12-10] MEDS: MAGNESIUM OXIDE 400 MG TABLET (FP) PO SCH (10:28)
[2018-12-10] MEDS: cloNIDine HCL 0.1 MG TABLET PO SCH ×2 (10:28→21:28)
[2018-12-10] MEDS: IRON SUCROSE INJECTION 300 MG in SODIUM CHLORIDE 235 ML IVPB SCH (10:30)
--- NOTE | 2018-12-10 11:49 | PN ---
Progress Note (short form) - Note Progress Note: s: no chest pain, palps, dizziness, dyspnea. Current Medications Acetaminophen (Tylenol -) 650 mg PO Q4H PRN PRN Reason: Pain Level 4 - 10 Last Admin: 12/10/18 08:29 Dose: 650 mg Allopurinol (Zyloprim -) 100 mg PO DAILY [facility] Last Admin: 12/10/18 10:22 Dose: 100 mg Atorvastatin Calcium (Lipitor -) 10 mg PO HS [facility] Last Admin: 12/09/18 22:14 Dose: 10 mg Clonidine (Catapres -) 0.1 mg PO BID [facility] Last Admin: 12/10/18 10:28 Dose: 0.1 mg Cyanocobalamin (Vitamin B12 Injection -) 1,000 mcg IM DAILY [facility] Last Admin: 12/10/18 10:24 Dose: 1,000 mcg Diltiazem HCl (Cardizem Injection -) 10 mg IVPUSH Q4H PRN PRN Reason: TACHYCARDIA Last Admin: 11/26/18 17:37 Dose: 10 mg Diltiazem HCl (Cardizem Cd -) 360 mg PO DAILY [facility] Last Admin: 12/10/18 10:21 Dose: 360 mg Diphenhydramine HCl (Benadryl Injection -) 25 mg IVPB Q6H PRN PRN Reason: ITCHING Sodium Chloride (Normal Saline -) 1,000 mls @ 83 mls/hr IV ASDIR [facility] Last Admin: 12/09/18 13:00 Dose: 83 mls/hr Insulin Aspart (Novolog Vial Sliding Scale -) 1 vial SQ ACHS [facility]; Protocol Last Admin: 12/10/18 06:03 Dose: Not Given Magnesium Oxide (Mag-Ox -) 400 mg PO DAILY [facility] Last Admin: 12/10/18 10:28 Dose: 400 mg Metoclopramide HCl (Reglan -) 10 mg PO TIDAC [facility] Last Admin: 12/10/18 10:20 Dose: 10 mg Morphine Sulfate (Morphine Sulfate) 2 mg IVPUSH Q4H PRN PRN Reason: Pain Level 8 - 10 BREAKTHROUGH Last Admin: 12/09/18 18:07 Dose: 2 mg Ondansetron HCl (Zofran Injection) 4 mg IVPUSH Q4H PRN PRN Reason: NAUSEA AND/OR VOMITING Last Admin: 11/25/18 06:39 Dose: 4 mg Oxycodone HCl (Roxicodone -) 5 mg PO Q4H PRN PRN Reason: Pain Level 8-10 BREAKTHROUGH Last Admin: 12/08/18 09:05 Dose: 5 mg Propranolol HCl (Inderal La -) 60 mg PO DAILY [facility] Last Admin: 12/10/18 10:28 Dose: 60 mg Simethicone (Mylicon -) 80 mg PO TID [facility] Last Admin: 12/10/18 06:03 Dose: 80 mg Vital Signs Period Temp Pulse Resp BP Sys/Pascual Pulse Ox Last 24 Hr 97.8 F-98.7 F 57-70 20-22 147-158/60-73 95 Constitutional: Yes: Well Nourished, No Distress, Calm Cardiovascular: Yes: Regular Rate and Rhythm, S1, S2. No: Gallop, Murmur Respiratory: Yes: Regular, CTA Bilaterally. No: Accessory Muscle Use, Rales, Wheezes Extremities: No: Cold Edema: Yes (1+ ankles) Neurological: Yes: Alert, Oriented Psychiatric: No: Agitated Assessment/Plan EKG: initial sinus, LVH, first deg AVB EKG 11/22 afib with RVR rate 135 bpm echo 11/2016 LV mildly dilated, nl LV function, sigmoid septum, RV nl, LA severely dilated, RA mildly enlarged, mild MR, mild TR, at least mild pulm HTN, RVSP at least 42 mmHg tele: NSR, artifact afib - in post op setting after ex lap, PAN - 11/25: converted spontaneously now to sinus - 11/26: overnight converted back to afib with RVR, dilt gtt was started, initially poor IV access now has been running, no improvement with additional lopressor 5 mg IV this morning. replete K and Mg, digoxin 0.125 mg IV x 1 ordered, cont dilt gtt - 11/27: started diltiazem 60 mg PO Q6H, increase to 90 mg Q6H, start propranolol 20 mg Q6H, uptitrate as tolerated, wean dilt gtt as tolerated -11/28-7: rate controlled on po meds. eliquis started. -12/02-: sinus. continue diltiazem CD 360 mg daily, propranolol LA 60 mg daily. -12/07: soft BPs, hgb trending down. surgery f/u. hold eliquis until anemia stabilizes. -12/08: Hgb 7.8, agree with holding DOAC until hgb more stable - 12/09-16: holding eliquis continue diltiazem and propranolol, HR stable SBO s/p ex lap, PAN -doing well post op from surgical pov. d/c planning underway -H/H down today, surgery f/u -holding eliquis for now, as above HTN -chronically suboptimal BP control at home -has been on mult meds including clonidine at home -lisinopril, chlorthalidone held here in setting of CHACHA, clonidine continued -hi dose diltiazem plus low dose propranolol started here to control rapid AF -12/07: bp's soft at present. decr clonidine 0.2 TID to 0.1 BID. continue other meds -hgb down, r/o postop bleeding--per surgery - Continue Cardizem 360 and Clonidine 0.1mg BID. pulm HTN, chronic diastolic HF - mild to mod, likely 2/2 diastolic CHF - appears euvolemic DM - manage per primary HLD - continue statin
[2018-12-10] MEDS: SODIUM CHLORIDE 1,000 ML IV SCH (13:00)
[2018-12-10] MEDS: oxyCODONE HCL 5 MG TABLET PO PRN (13:07)
[2018-12-10] MEDS: HEPARIN NA (PORCINE) 5,000 UNITS/ML 1ML VIAL SQ SCH ×2 (14:06→21:27)
[2018-12-10] MEDS: MORPHINE SULFATE 2 MG/ML VIAL IVPUSH PRN (16:00)
--- NOTE | 2018-12-10 16:15 | PN ---
Progress Note, Physician History of Present Illness: POD20 s/p extensive lysis of intestinal adhesions for developing SBO, with suture repair of small RUQ incisional hernia from inside, with findings of previous intestinal reconstruction, hepaticojejunostomy, done years ago after post-cholecystectomy complications per pt. Pt postop had new onset of afib with RVR and was transferred to telemetry, now in sinus and rate controlled on po meds. She was tolerating soft diabetic diet, though with marginal po intake at times. Ambulating, voiding, no BM since CT scan Sunday per pt. Abd pain at times, managing with tylenol prn, oxycodone/morphine as breakthrough. Lower pole of abdominal incision was opened when abhay were removed for spontaneous drainage, and packed. Over the weekend, there was more yellow drainage than previously, with a concern of possible sb fistula. CT with po contrast showed no contrast leakage above the fascia or out of the bowel. The rest of the incision was reopened, cultured, and packed, then VAC was placed the next day with white foam at base over fascia. She is NPO except meds with IVF. Seen and examined in bed. Was up walking earlier, has been OOB to chair. Pain manageable with prn tylenol and occasional narcotics. Pt c/o bad smell from wound. No bowel movements today per nursing. Had suppository last evening. Per pt, was without IV access for 12 hrs from yesterday afternoon until ~4 this morning. Had a few ice chips to wet her mouth; otherwise NPO except meds. VAC intact with 300ml brown/syed fluid in canister - Current Medication List Current Medications: Active Medications Acetaminophen (Tylenol -) 650 mg PO Q4H PRN PRN Reason: Pain Level 4 - 10 Last Admin: 12/10/18 13:08 Dose: 650 mg Allopurinol (Zyloprim -) 100 mg PO DAILY [facility] Last Admin: 12/10/18 10:22 Dose: 100 mg Atorvastatin Calcium (Lipitor -) 10 mg PO HS [facility] Last Admin: 12/09/18 22:14 Dose: 10 mg Clonidine (Catapres -) 0.1 mg PO BID [facility] Last Admin: 12/10/18 10:28 Dose: 0.1 mg Cyanocobalamin (Vitamin B12 Injection -) 1,000 mcg IM DAILY [facility] Last Admin: 12/10/18 10:24 Dose: 1,000 mcg Diltiazem HCl (Cardizem Injection -) 10 mg IVPUSH Q4H PRN PRN Reason: TACHYCARDIA Last Admin: 11/26/18 17:37 Dose: 10 mg Diltiazem HCl (Cardizem Cd -) 360 mg PO DAILY [facility] Last Admin: 12/10/18 10:21 Dose: 360 mg Diphenhydramine HCl (Benadryl Injection -) 25 mg IVPB Q6H PRN PRN Reason: ITCHING Heparin Sodium (Porcine) (Heparin -) 5,000 unit SQ TID [facility] Last Admin: 12/10/18 14:06 Dose: 5,000 unit Sodium Chloride (Normal Saline -) 1,000 mls @ 83 mls/hr IV ASDIR [facility] Last Admin: 12/10/18 13:00 Dose: Not Given Insulin Aspart (Novolog Vial Sliding Scale -) 1 vial SQ ACHS [facility]; Protocol Last Admin: 12/10/18 12:22 Dose: Not Given Magnesium Oxide (Mag-Ox -) 400 mg PO DAILY [facility] Last Admin: 12/10/18 10:28 Dose: 400 mg Metoclopramide HCl (Reglan -) 10 mg PO TIDAC [facility] Last Admin: 12/10/18 12:30 Dose: 10 mg Morphine Sulfate (Morphine Sulfate) 2 mg IVPUSH Q4H PRN PRN Reason: Pain Level 8 - 10 BREAKTHROUGH Last Admin: 12/09/18 18:07 Dose: 2 mg Ondansetron HCl (Zofran Injection) 4 mg IVPUSH Q4H PRN PRN Reason: NAUSEA AND/OR VOMITING Last Admin: 11/25/18 06:39 Dose: 4 mg Oxycodone HCl (Roxicodone -) 5 mg PO Q4H PRN PRN Reason: Pain Level 8-10 BREAKTHROUGH Last Admin: 12/10/18 13:07 Dose: 5 mg Propranolol HCl (Inderal La -) 60 mg PO DAILY [facility] Last Admin: 12/10/18 10:28 Dose: 60 mg Simethicone (Mylicon -) 80 mg PO TID [facility] Last Admin: 12/10/18 14:07 Dose: 80 mg - Objective Vital Signs: Vital Signs Temperature 98.2 F 12/10/18 13:53 Pulse Rate 68 12/10/18 13:53 Respiratory Rate 20 12/10/18 13:53 Blood Pressure 164/72 12/10/18 13:53 O2 Sat by Pulse Oximetry (%) 95 12/09/18 22:00 Vital Signs Period Temp Pulse Resp BP Sys/Pascual Pulse Ox Last 24 Hr 97.8 F-98.7 F 59-70 20-22 155-182/60-80 95 Constitutional: Yes: No Distress, Calm, Obese Eyes: Yes: Conjunctiva Clear, EOM Intact HENT: Yes: Atraumatic, Normocephalic Gastrointestinal: Yes: Normal Bowel Sounds, Soft, Abdomen, Obese, Distention ( some tympany), Tenderness (mild upper/right, incisional) Extremities: No: Cool, Cyanosis Integumentary: Yes: Incision (midline w/VAC). No: Jaundice, Rash Wound/Incision: Yes: Dressing Dry and Intact (VAC intact at -125mm cont pressure ), Dressing Removed (and changed), Draining (brown/syed fluid in VAC tubing - light orange succus/fecal content present in wound base), Unapproximated (most of wound alonso granulating, pink, slight oozing stops spontaneously with sponge removal; base of wound with fascial suture intact but central area of fascia with necrosis, separation - in situ upper mesh (split in middle) visible just beneath fascial level at mid-wound; piece of long, fibrous/fibrinous brown material withdrawn from midwound with expelling of gas bubbles at end from just under this aspect of wound - ?intraluminal debris - EC fistula must be present) , Other (white foam strip replaced over wound base/fascial area, covered with black foam strips, VAC drape, small wider black foam bridge for trac-pad; secured at -125mm continuous pressure with good seal). No: Reddened Neurological: Yes: Alert, Oriented Labs: CBC, BMP 12/10/18 05:30 12/10/18 05:30 Mg 2.2 Phos 3.4 BUN/Cr down further Problem List - Problems (1) Intestinal adhesions with partial obstruction Assessment/Plan: POD20 s/p extensive lysis of adhesions and RUQ incisional hernia repair s/p hepaticojejunostomy in past with intestinal reconstruction - with dilated/ stagnant loop of anastomotic area had small enterotomy repaired in proximal SB (hepatic limb?) with small yellow fluid leakage, minimal contamination POD3 s/p complex I&D of postop wound infection enterocutaneous fistula present clinically VAC in place, changed with nurse and [employer] rep Giorgio Garcia continue NPO except meds with IVF - will need to make COMPLETE NPO with TPN will request PICC line from IR for TPN will need to discuss with cardiology and medicine how to convert ALL MEDS to IV pain meds prn trend labs, monitor lytes Code(s): K56.51 - INTESTINAL ADHESIONS [BANDS], WITH PARTIAL OBSTRUCTION (2) Infection following a procedure, superficial incisional surgical site, initial encounter Assessment/Plan: culture growing mostly sensitive E. coli, E. faecalis, yeast-like organism unclear if antibiotics necessary given normal wbc, open wound, though there is mesh in situ in context of EC fistula Code(s): T81.41XA - INFCT FOL A PROC, SUPERFIC INCISIONAL SURGICAL SITE, INIT (3) Enterocutaneous fistula Code(s): K63.2 - FISTULA OF INTESTINE (4) Persistent postprocedural fistula, initial encounter Assessment/Plan: enteric content in wound VAC replaced for now - white foam in wound base, black over discussed with patient that transfer to tertiary center may be reasonable, given in situ mesh which will probably need removal, and presence of fistula, with complex nature of intestinal anatomy underlying - pt is only 3 wks postop, which is not optimal timing for return to OR, and may require conservative management for a period of time until another operation can be considered She requests reaching out to [facility], and offered name of a surgeon (Dr. Chino ) that she got from a close friend that works there and has been involved with helping her in times of medical need in the past. Left message for Dr. Chino's office and pt's friend Karin (a nurse). Will follow up. Code(s): T81.83XA - PERSISTENT POSTPROCEDURAL FISTULA, INITIAL ENCOUNTER (5) Incisional hernia, without obstruction or gangrene Code(s): K43.2 - INCISIONAL HERNIA WITHOUT OBSTRUCTION OR GANGRENE (6) Atrial fibrillation with RVR Assessment/Plan: cardiology following in sinus and HR controlled on po meds keep lytes repleted Eliquis on hold for now will need to revert to all IV meds and make completely NPO as soon as possible will touch base with cardiology Code(s): I48.91 - UNSPECIFIED ATRIAL FIBRILLATION (7) Hypertension Assessment/Plan: cardio managing, better controlled Code(s): I10 - ESSENTIAL (PRIMARY) HYPERTENSION Qualifiers: Hypertension type: essential hypertension Qualified Code(s): I10 - Essential (primary) hypertension (8) Diabetes mellitus type 2 in obese Assessment/Plan: endo following currently off insulin, sugars acceptable will need TPN and insulin management along with it Code(s): E11.69 - TYPE 2 DIABETES MELLITUS WITH OTHER SPECIFIED COMPLICATION; E66.9 - OBESITY, UNSPECIFIED (9) S/P ureteral stent placement Assessment/Plan: urology following stent management per uro - pt may need laser lithotripsy with stent removal?, off anticoagulation mild increase in left hydronephrosis on Sunday's CT Code(s): Z96.0 - PRESENCE OF UROGENITAL IMPLANTS (10) Gout Assessment/Plan: on home med - will need to hold Code(s): M10.9 - GOUT, UNSPECIFIED Qualifiers: Gout site: toe Gout etiology: unspecified cause Chronicity: unspecified Laterality: unspecified laterality Qualified Code(s): M10.9 - Gout, unspecified (11) CKD (chronic kidney disease) stage 3, GFR 30-59 ml/min Assessment/Plan: nephrology following BUN/Cr coming back down IVF running trend labs Code(s): N18.3 - CHRONIC KIDNEY DISEASE, STAGE 3 (MODERATE)
[2018-12-10] MEDS: ATORVASTATIN CA 10 MG TABLET (FP) PO SCH (21:27)
[2018-12-11] MEDS: ACETAMINOPHEN 325 MG TABLET (FP) PO PRN (04:07)
[2018-12-11] MEDS: HEPARIN NA (PORCINE) 5,000 UNITS/ML 1ML VIAL SQ SCH ×3 (06:26→21:39)
[2018-12-11] MEDS: SIMETHICONE 80 MG TAB.CHEW (FP) PO SCH (06:27)
[2018-12-11] MEDS: METOCLOPRAMIDE HCL 10 MG TABLET (FP) PO SCH (06:27)
[2018-12-11] MEDS: INSULIN SLIDING SCALE (NOVOLOG) 1 VIAL SQ SCH ×4 (06:27→21:37)
[2018-12-11] MEDS ORDERED: PT OWN MED DRAWER 7, Y5N ONE (09:25)
[2018-12-11] MEDS: cloNIDine HCL 0.1 MG TABLET PO SCH ×2 (09:46→21:38)
[2018-12-11] MEDS: CYANOCOBALAMIN (VITAMIN B-12) 1000 MCG/1 ML VIAL IM SCH (09:46)
[2018-12-11] MEDS: ALLOPURINOL 100 MG TABLET (FP) PO SCH (09:46)
[2018-12-11] MEDS: MORPHINE SULFATE 2 MG/ML VIAL IVPUSH PRN ×2 (12:30→16:24)
[2018-12-11 13:01] LABS: BASO % 0.8 % (0-2.0); EOS % 0.8 % (0-4.5); HEMOGLOBIN 9.2 GM/dL (10.7-15.3); LYMPH % 16.6 % (8-40); MCH 26.5 pg (25.7-33.7); MCHC 32.8 g/dl (32.0-36.0); MEAN CELL VOLUME 80.8 fl (80-96); MEAN PLT VOLUME 7.9 fl (7.5-11.1); MONO % 13.9 % (3.8-10.2); NEUT % 67.9 % (42.8-82.8); PLATELET COUNT 448 K/MM3 (134-434); RBC 3.46 M/mm3 (3.60-5.2); RDW 19.3 % (11.6-15.6); WHITE BLOOD COUNT 4.8 K/mm3 (4.0-10.0)
[2018-12-11 13:32] LABS: ANION GAP 8 MMOL/L (8-16); BLOOD UREA NITROGEN 13 mg/dL (7-18); CALCIUM 8.5 mg/dL (8.5-10.1); CHLORIDE 106 mmol/L (98-107); CO2 25 mmol/L (21-32); CREATININE 1.1 mg/dL (0.55-1.3); GLUCOSE,RANDOM 107 mg/dL (74-106); MAGNESIUM 1.9 mg/dL (1.8-2.4); PHOSPHOROUS 2.6 mg/dL (2.5-4.9); PREALBUMIN 8.5 mg/dl (20-40); SODIUM 139 mmol/L (136-145)
--- NOTE | 2018-12-11 14:31 | PN ---
Progress Note, Physician Chief Complaint: seen and examined Sitting comfortably in chair No distress Denies CP or SOB - Current Medication List Current Medications: Active Medications Acetaminophen (Ofirmev Injection -) 1,000 mg IVPB Q6H PRN PRN Reason: PAIN LEVEL 6-10 Clonidine (Catapres -) 0.1 mg PO BID [facility] Last Admin: 12/11/18 09:46 Dose: 0.1 mg Diltiazem HCl (Cardizem Injection -) 10 mg IVPUSH Q4H PRN PRN Reason: TACHYCARDIA Last Admin: 11/26/18 17:37 Dose: 10 mg Diphenhydramine HCl (Benadryl Injection -) 25 mg IVPB Q6H PRN PRN Reason: ITCHING Heparin Sodium (Porcine) (Heparin -) 5,000 unit SQ TID [facility] Last Admin: 12/11/18 06:26 Dose: 5,000 unit Sodium Chloride (Normal Saline -) 1,000 mls @ 83 mls/hr IV ASDIR [facility] Last Admin: 12/10/18 13:00 Dose: Not Given Fat Emulsion Intravenous (Intralipid -) 250 mls @ 20.833 mls/hr IV DAILY@2200 [facility] Potassium Chloride 40 meq/Calcium Gluconate 1,000 mg/Magnesium Sulfate 1 gm/ Folic Acid 1 mg/ Multivitamins/Minerals 10 ml/ Sterile Water/Amino Acids/ Dextrose 1,000 mls @ 41.667 mls/hr IVPB DAILY@1600 [facility] Insulin Aspart (Novolog Vial Sliding Scale -) 1 vial SQ [facility]; Protocol Last Admin: 12/11/18 13:41 Dose: Not Given Metoclopramide HCl (Reglan Injection -) 10 mg IVPUSH Q8H [facility] Metoprolol Tartrate (Lopressor Injection -) 5 mg IVPUSH Q4H PRN PRN Reason: HYPERTENSION Morphine Sulfate (Morphine Sulfate) 2 mg IVPUSH Q4H PRN PRN Reason: Pain Level 8 - 10 BREAKTHROUGH Last Admin: 12/11/18 12:30 Dose: 2 mg Ondansetron HCl (Zofran Injection) 4 mg IVPUSH Q4H PRN PRN Reason: NAUSEA AND/OR VOMITING Last Admin: 11/25/18 06:39 Dose: 4 mg - Objective Vital Signs: Vital Signs Temperature 98.8 F 12/11/18 09:00 Pulse Rate 60 12/11/18 09:00 Respiratory Rate 18 12/11/18 09:00 Blood Pressure 190/82 H 12/11/18 09:00 O2 Sat by Pulse Oximetry (%) 95 12/11/18 09:00 Constitutional: Yes: No Distress Eyes: Yes: Conjunctiva Clear Cardiovascular: Yes: Regular Rate and Rhythm Respiratory: Yes: CTA Bilaterally (no wheezing) Gastrointestinal: Yes: Soft (NT) Edema: No Neurological: Yes: Alert, Oriented Labs: CBC, BMP 12/11/18 12:25 12/11/18 12:25 INR, PTT INR 1.19 (0.82-1.09) 11/16/18 14:35 Laboratory Tests 12/11/18 12/11/18 12:25 12:25 WBC 4.8 Hgb 9.2 L Hct 28.0 L Plt Count 448 H Sodium 139 Potassium 4.0 BUN 13 Creatinine 1.1 Calcium 8.5 Phosphorus 2.6 Magnesium 1.9 Assessment/Plan IMP: From the cardiac perspective, 2 issues: 1. PAF 2. Hypertension REC: 1.Patient is currently NPO secondary to her surgical situation. Continue IV metoprolol and resume telemetry. If BP remains consistently > 150/90, can transition to clonidine patch if continues to be NPO. 2. For rate control, on IV Cardizem. While on IV meds, resume tele monitoring. 3. Eliquis on hold due to anemia and intermittent drops in H/H. Can consider starting UFH gtts (short acting) when H/H stable 4. Cont SQ Heparin for DVT prophylaxis
--- NOTE | 2018-12-11 14:37 | PN ---
Progress Note (short form) - Note Progress Note: Renal follow up for CHACHA Pt seen and examined at the bedside remains NPO has mild abd pain no N/V/D, fever, chills, sob, or chest pain has been on IVF making urine Vital Signs Temperature 98.8 F 12/11/18 09:00 Pulse Rate 60 12/11/18 09:00 Respiratory Rate 18 12/11/18 09:00 Blood Pressure 190/82 H 12/11/18 09:00 O2 Sat by Pulse Oximetry (%) 95 12/11/18 09:00 Intake & Output 12/08/18 12/09/18 12/10/18 12/11/18 23:59 23:59 23:59 23:59 Intake Total 1020 1460 1220 1216 Output Total 500 300 650 Balance 520 4346 202 2329 NAD RRR CTA slight abd tenderness No Le edema CBC, BMP 12/11/18 12:25 12/11/18 12:25 Current Medications Acetaminophen (Ofirmev Injection -) 1,000 mg IVPB Q6H PRN PRN Reason: PAIN LEVEL 6-10 Clonidine (Catapres -) 0.1 mg PO BID [facility] Last Admin: 12/11/18 09:46 Dose: 0.1 mg Diltiazem HCl (Cardizem Injection -) 10 mg IVPUSH Q4H PRN PRN Reason: TACHYCARDIA Last Admin: 11/26/18 17:37 Dose: 10 mg Diphenhydramine HCl (Benadryl Injection -) 25 mg IVPB Q6H PRN PRN Reason: ITCHING Heparin Sodium (Porcine) (Heparin -) 5,000 unit SQ TID [facility] Last Admin: 12/11/18 06:26 Dose: 5,000 unit Fat Emulsion Intravenous (Intralipid -) 250 mls @ 20.833 mls/hr IV DAILY@2200 [facility] Potassium Chloride 40 meq/Calcium Gluconate 1,000 mg/Magnesium Sulfate 1 gm/ Folic Acid 1 mg/ Multivitamins/Minerals 10 ml/ Sterile Water/Amino Acids/ Dextrose 1,000 mls @ 41.667 mls/hr IVPB DAILY@1600 [facility] Insulin Aspart (Novolog Vial Sliding Scale -) 1 vial SQ ACHS [facility]; Protocol Last Admin: 12/11/18 13:41 Dose: Not Given Metoclopramide HCl (Reglan Injection -) 10 mg IVPUSH Q8H [facility] Metoprolol Tartrate (Lopressor Injection -) 5 mg IVPUSH Q4H PRN PRN Reason: HYPERTENSION Morphine Sulfate (Morphine Sulfate) 2 mg IVPUSH Q4H PRN PRN Reason: Pain Level 8 - 10 BREAKTHROUGH Last Admin: 12/11/18 12:30 Dose: 2 mg Ondansetron HCl (Zofran Injection) 4 mg IVPUSH Q4H PRN PRN Reason: NAUSEA AND/OR VOMITING Last Admin: 11/25/18 06:39 Dose: 4 mg 72 year old woman with hx of CKD, Nephrolithiasis, DM who presented with Abd pain secondary to SBO s/p surgical intervention with CHACHA. #Recurrent CHACHA #SBO s/p OR #Abd wound infection Renal function improved with fluids given pt will be a prolonged NPO status will start TPN with lipids for nutritional support will adjust and titrate TPN based on electrolytes and volume status will consult nutrition surgical follow up Thank you Ethan Ram DO
[2018-12-11] MEDS: METOCLOPRAMIDE HCL INJECTION 10 MG/2 ML VIAL IVPUSH SCH ×2 (15:18→21:39)
[2018-12-11] MEDS: METOPROLOL TARTRATE 5 MG/5 ML VIAL IVPUSH PRN (15:19)
[2018-12-11] MEDS ORDERED: POTASSIUM CHLORIDE IVPB SCH (16:00)
[2018-12-11] MEDS ORDERED: CALCIUM GLUCONATE IVPB SCH (16:00)
[2018-12-11] MEDS ORDERED: [UNRECOGNIZED DRUG - OTHER] IVPB SCH (16:00)
[2018-12-11] MEDS ORDERED: MAGNESIUM SULFATE IVPB SCH (16:00)
--- NOTE | 2018-12-11 16:01 | PN ---
Progress Note, Physician Chief Complaint: Abdominal pain SBP vs Cecal Volvulus History of Present Illness: Previous notes and events reviewed awake and alert NAD patient denies chest pain or SOB wound vac connected and draining - Current Medication List Current Medications: Active Medications Acetaminophen (Ofirmev Injection -) 1,000 mg IVPB Q6H PRN PRN Reason: PAIN LEVEL 6-10 Clonidine (Catapres -) 0.1 mg PO BID [facility] Last Admin: 12/11/18 09:46 Dose: 0.1 mg Diltiazem HCl (Cardizem Injection -) 10 mg IVPUSH Q4H PRN PRN Reason: TACHYCARDIA Last Admin: 11/26/18 17:37 Dose: 10 mg Diphenhydramine HCl (Benadryl Injection -) 25 mg IVPB Q6H PRN PRN Reason: ITCHING Heparin Sodium (Porcine) (Heparin -) 5,000 unit SQ TID [facility] Last Admin: 12/11/18 15:18 Dose: 5,000 unit Fat Emulsion Intravenous (Intralipid -) 250 mls @ 20.833 mls/hr IV DAILY@2200 [facility] Potassium Chloride 40 meq/Calcium Gluconate 1,000 mg/Magnesium Sulfate 1 gm/ Folic Acid 1 mg/ Multivitamins/Minerals 10 ml/ Sterile Water/Amino Acids/ Dextrose 1,000 mls @ 41.667 mls/hr IVPB DAILY@1600 [facility] Insulin Aspart (Novolog Vial Sliding Scale -) 1 vial SQ ACHS [facility]; Protocol Last Admin: 12/11/18 13:41 Dose: Not Given Metoclopramide HCl (Reglan Injection -) 10 mg IVPUSH Q8H [facility] Last Admin: 12/11/18 15:18 Dose: 10 mg Metoprolol Tartrate (Lopressor Injection -) 5 mg IVPUSH Q4H PRN PRN Reason: HYPERTENSION Last Admin: 12/11/18 15:19 Dose: 5 mg Morphine Sulfate (Morphine Sulfate) 2 mg IVPUSH Q4H PRN PRN Reason: Pain Level 8 - 10 BREAKTHROUGH Last Admin: 12/11/18 12:30 Dose: 2 mg Ondansetron HCl (Zofran Injection) 4 mg IVPUSH Q4H PRN PRN Reason: NAUSEA AND/OR VOMITING Last Admin: 11/25/18 06:39 Dose: 4 mg - Objective Vital Signs: Vital Signs Temperature 98.5 F 12/11/18 14:00 Pulse Rate 70 12/11/18 15:19 Respiratory Rate 18 12/11/18 14:47 Blood Pressure 183/88 H 12/11/18 15:19 O2 Sat by Pulse Oximetry (%) 95 12/11/18 09:00 Constitutional: Yes: No Distress, Calm Eyes: Yes: Conjunctiva Clear HENT: Yes: Atraumatic Cardiovascular: Yes: Regular Rate and Rhythm Respiratory: Yes: Regular, CTA Bilaterally Gastrointestinal: Yes: Normal Bowel Sounds, Soft, Tenderness (incisional), Other (wound vac noted) Musculoskeletal: Yes: WNL Extremities: Yes: WNL Edema: No Neurological: Yes: Alert, Oriented Psychiatric: Yes: Alert, Oriented Labs: CBC, BMP 12/11/18 12:25 12/11/18 12:25 INR, PTT INR 1.19 (0.82-1.09) 11/16/18 14:35 Microbiology 12/07/18 20:15 Incision Gram Stain - Final 12/07/18 20:15 Incision Wound Culture - Final Enterococcus Faecalis Escherichia Coli Yeast Like Organism 11/17/18 15:15 Blood - Peripheral Venous Blood Culture - Final NO GROWTH AFTER 5 DAYS INCUBATION 11/17/18 15:45 Blood - Peripheral Venous Blood Culture - Final NO GROWTH AFTER 5 DAYS INCUBATION 11/16/18 22:45 Urine - Urine Clean Catch Urine Culture - Final NO GROWTH OBTAINED Problem List - Problems (1) Abdominal pain Assessment/Plan: - -Abdomen and Pelvic CT scan shows abnormal cecal position but no evidence of volvulus, abnormal ileal loops possibly representing enteritis -Meckel scan shows no scintigraphic evidence of Meckel diverticulum containing ectopic gastric mucosa -s/plaparatomy with extensive lysis of adhesion and suture repair of RUQ incisional hernia -pain management -NPO status -surgery on board -GI on board -zofran prn for nausea -continue with Simethicone -R PICC line in place--will start TPN -wound vac in place Code(s): R10.9 - UNSPECIFIED ABDOMINAL PAIN Qualifiers: Abdominal location: unspecified location Qualified Code(s): R10.9 - Unspecified abdominal pain (2) CKD (chronic kidney disease) stage 3, GFR 30-59 ml/min Assessment/Plan: -improved -BUN/Cr 13/1.1 -monitor renal function daily -renal on board Code(s): N18.3 - CHRONIC KIDNEY DISEASE, STAGE 3 (MODERATE) (3) Diabetes mellitus type 2 in obese Assessment/Plan: -BGM ACHS -ISS -HgA1c 8.9% -diabetic diet Code(s): E11.69 - TYPE 2 DIABETES MELLITUS WITH OTHER SPECIFIED COMPLICATION; E66.9 - OBESITY, UNSPECIFIED (4) Hypertension Assessment/Plan: -continue clonidine and metoprolol IVP -cardio on board Code(s): I10 - ESSENTIAL (PRIMARY) HYPERTENSION Qualifiers: Hypertension type: essential hypertension Qualified Code(s): I10 - Essential (primary) hypertension (5) Hydronephrosis, left Assessment/Plan: -L ureteral stent, previously followed by urologist in [place] -urology on board Code(s): N13.30 - UNSPECIFIED HYDRONEPHROSIS (6) Atrial fibrillation with RVR Assessment/Plan: -tele monitoring -continue metoprolol IVP for elev HR -cardiology on board Code(s): I48.91 - UNSPECIFIED ATRIAL FIBRILLATION (7) Hypomagnesemia Assessment/Plan: -resolved -monitor lytes daily and replete as needed Code(s): E83.42 - HYPOMAGNESEMIA Assessment/Plan see problem list dvt ppx
--- NOTE | 2018-12-11 19:21 | PN ---
Progress Note, Physician History of Present Illness: POD21 s/p extensive lysis of intestinal adhesions for developing SBO, with suture repair of small RUQ incisional hernia from inside, with findings of previous intestinal reconstruction, hepaticojejunostomy, done years ago after post-cholecystectomy complications per pt. Pt postop had new onset of afib with RVR and was transferred to telemetry, now in sinus and rate controlled on meds. She tolerated soft diabetic diet, though with marginal po intake at times. Was ambulating, voiding, with bowel function, though less in last few days. Abd pain at times, managing with tylenol, narcotics as breakthrough. Lower pole of abdominal incision was opened when abhay were removed for spontaneous drainage, and packed. Last weekend, there was more yellow drainage than previously, with a concern of possible sb fistula. CT with po contrast showed no contrast leakage above the fascia or out of the bowel. The rest of the incision was reopened, cultured, and packed, then VAC was placed the next day with white foam at base over fascia. She has been NPO except meds with IVF. Today is being changed over to complete NPO with TPN and IV meds only. Seen and examined earlier today in chair. Had a little pain on left side and incisional, doing ok on mostly tylenol. VAC intact with very little brown/syed fluid in canister since yesterday's change. She went today to IR for PICC placement to start TPN, which is being ordered by renal. No BM since two small ones after suppository couple days ago; asked about possibly a soap suds enema, small volume. - Current Medication List Current Medications: Active Medications Acetaminophen (Ofirmev Injection -) 1,000 mg IVPB Q6H PRN PRN Reason: PAIN LEVEL 6-10 Clonidine (Catapres -) 0.1 mg PO BID [facility] Last Admin: 12/11/18 09:46 Dose: 0.1 mg Diltiazem HCl (Cardizem Injection -) 10 mg IVPUSH Q4H PRN PRN Reason: TACHYCARDIA Last Admin: 11/26/18 17:37 Dose: 10 mg Diphenhydramine HCl (Benadryl Injection -) 25 mg IVPB Q6H PRN PRN Reason: ITCHING Heparin Sodium (Porcine) (Heparin -) 5,000 unit SQ TID [facility] Last Admin: 12/11/18 15:18 Dose: 5,000 unit Fat Emulsion Intravenous (Intralipid -) 250 mls @ 20.833 mls/hr IV DAILY@2200 [facility] Potassium Chloride 40 meq/Calcium Gluconate 1,000 mg/Magnesium Sulfate 1 gm/ Folic Acid 1 mg/ Multivitamins/Minerals 10 ml/ Sterile Water/Amino Acids/ Dextrose 1,000 mls @ 41.667 mls/hr IVPB DAILY@1600 [facility] Insulin Aspart (Novolog Vial Sliding Scale -) 1 vial SQ ACHS [facility]; Protocol Last Admin: 12/11/18 18:14 Dose: Not Given Metoclopramide HCl (Reglan Injection -) 10 mg IVPUSH Q8H [facility] Last Admin: 12/11/18 15:18 Dose: 10 mg Metoprolol Tartrate (Lopressor Injection -) 5 mg IVPUSH Q4H PRN PRN Reason: HYPERTENSION Last Admin: 12/11/18 15:19 Dose: 5 mg Morphine Sulfate (Morphine Sulfate) 2 mg IVPUSH Q4H PRN PRN Reason: Pain Level 8 - 10 BREAKTHROUGH Last Admin: 12/11/18 16:24 Dose: 2 mg Ondansetron HCl (Zofran Injection) 4 mg IVPUSH Q4H PRN PRN Reason: NAUSEA AND/OR VOMITING Last Admin: 11/25/18 06:39 Dose: 4 mg - Objective Vital Signs: Vital Signs Temperature 98.5 F 12/11/18 14:00 Pulse Rate 70 12/11/18 15:19 Respiratory Rate 18 12/11/18 14:47 Blood Pressure 183/88 H 12/11/18 15:19 O2 Sat by Pulse Oximetry (%) 95 12/11/18 09:00 Constitutional: Yes: No Distress, Calm, Obese Eyes: Yes: Conjunctiva Clear, EOM Intact HENT: Yes: Atraumatic, Normocephalic Gastrointestinal: Yes: Soft, Abdomen, Obese, Distention (mild, less tympanic), Tenderness (mild, bilateral upper quadrants, incisional). No: Tenderness, Rebound ...Rectal Exam: Yes: Deferred Extremities: No: Cool, Cyanosis Integumentary: Yes: Incision (midline w/VAC). No: Jaundice, Rash Wound/Incision: Yes: Dressing Dry and Intact (VAC intact at -125mm cont pressure ), Draining (small amt brown fluid in canister). No: Dressing Removed Neurological: Yes: Alert, Oriented Labs: CBC, BMP 12/11/18 12:25 12/11/18 12:25 Mg 1.9 Phos 2.6 prealbumin 8.5 - low Problem List - Problems (1) Intestinal adhesions with partial obstruction Assessment/Plan: POD21 s/p extensive lysis of adhesions and RUQ incisional hernia repair s/p hepaticojejunostomy in past with intestinal reconstruction - with dilated/ stagnant loop of anastomotic area had small enterotomy repaired in proximal SB (hepatic limb?) with small yellow fluid leakage, minimal contamination POD4 s/p complex I&D of postop wound infection enterocutaneous fistula present clinically VAC in place, changed yesterday with nurse and [employer] rep Giorgio Garcia COMPLETE NPO with TPN, IV meds only now has PICC line from IR pain meds prn - tylenol first line trend labs, monitor lytes prealbumin very low discussed with Debby Olson Code(s): K56.51 - INTESTINAL ADHESIONS [BANDS], WITH PARTIAL OBSTRUCTION (2) Infection following a procedure, superficial incisional surgical site, initial encounter Assessment/Plan: culture growing mostly sensitive E. coli, E. faecalis, yeast-like organism would not use antibiotics at this time Code(s): T81.41XA - INFCT FOL A PROC, SUPERFIC INCISIONAL SURGICAL SITE, INIT (3) Enterocutaneous fistula Code(s): K63.2 - FISTULA OF INTESTINE (4) Persistent postprocedural fistula, initial encounter Assessment/Plan: enteric content in wound continue VAC - white foam in wound base, black over discussed with patient that transfer to tertiary center may be reasonable, given in situ mesh which will probably need removal, and presence of fistula, with complex nature of intestinal anatomy underlying - pt is only 3 wks postop, which is not optimal timing for return to OR, and may require conservative management for a period of time until another operation can be considered Spoke with Dr. Hawk Chino from [place] last night. He will discuss with a colleague, Dr. Rafael Calzada, and they will get back to me. He agreed that she may benefit from transfer at some point and specialist resources for what will surely be a complicated reoperation, but also that waiting until at least 6 weeks postop would be best before considering return to OR TPN/complete NPO VAC changes about 3x weekly discussed with Debby Olson Code(s): T81.83XA - PERSISTENT POSTPROCEDURAL FISTULA, INITIAL ENCOUNTER (5) Incisional hernia, without obstruction or gangrene Code(s): K43.2 - INCISIONAL HERNIA WITHOUT OBSTRUCTION OR GANGRENE (6) Atrial fibrillation with RVR Assessment/Plan: cardiology following in sinus and HR controlled on po meds keep lytes repleted Eliquis on hold for now converted back to all IV meds, completely NPO discussed with Roxana Mathew Code(s): I48.91 - UNSPECIFIED ATRIAL FIBRILLATION (7) Hypertension Assessment/Plan: cardio managing, meds back to all IV Code(s): I10 - ESSENTIAL (PRIMARY) HYPERTENSION Qualifiers: Hypertension type: essential hypertension Qualified Code(s): I10 - Essential (primary) hypertension (8) Diabetes mellitus type 2 in obese Assessment/Plan: endo following currently off insulin, sugars acceptable will need insulin management along with TPN discussed with Debby Olson Code(s): E11.69 - TYPE 2 DIABETES MELLITUS WITH OTHER SPECIFIED COMPLICATION; E66.9 - OBESITY, UNSPECIFIED (9) S/P ureteral stent placement Assessment/Plan: urology following stent management per uro - pt may need laser lithotripsy with stent removal?, off anticoagulation mild increase in left hydronephrosis on Sunday's CT Code(s): Z96.0 - PRESENCE OF UROGENITAL IMPLANTS (10) Gout Assessment/Plan: home med - held since this morning Code(s): M10.9 - GOUT, UNSPECIFIED Qualifiers: Gout site: toe Gout etiology: unspecified cause Chronicity: unspecified Laterality: unspecified laterality Qualified Code(s): M10.9 - Gout, unspecified (11) CKD (chronic kidney disease) stage 3, GFR 30-59 ml/min Assessment/Plan: nephrology following BUN/Cr back in baseline range trend labs renal to order TPN for pt daily discussed with Dr. Ram Code(s): N18.3 - CHRONIC KIDNEY DISEASE, STAGE 3 (MODERATE)
[2018-12-11] MEDS: FAT EMULSIONS 250 ML IV SCH (21:52)
[2018-12-12] MEDS: INSULIN SLIDING SCALE (NOVOLOG) 1 VIAL SQ SCH ×4 (06:21→21:32)
[2018-12-12] MEDS: HEPARIN NA (PORCINE) 5,000 UNITS/ML 1ML VIAL SQ SCH ×3 (06:21→21:32)
[2018-12-12] MEDS: METOPROLOL TARTRATE 5 MG/5 ML VIAL IVPUSH PRN ×2 (06:22→21:33)
[2018-12-12] MEDS: METOCLOPRAMIDE HCL INJECTION 10 MG/2 ML VIAL IVPUSH SCH ×3 (06:22→21:33)
[2018-12-12 06:45] LABS: BASO % 0.7 % (0-2.0); EOS % 2.2 % (0-4.5); HEMATOCRIT 25.2 % (32.4-45.2); HEMOGLOBIN 8.4 GM/dL (10.7-15.3); LYMPH % 12.3 % (8-40); MCH 27.2 pg (25.7-33.7); MCHC 33.3 g/dl (32.0-36.0); MEAN CELL VOLUME 81.6 fl (80-96); MEAN PLT VOLUME 8.4 fl (7.5-11.1); MONO % 15.3 % (3.8-10.2); NEUT % 69.5 % (42.8-82.8); PLATELET COUNT 373 K/MM3 (134-434); RBC 3.09 M/mm3 (3.60-5.2); RDW 18.8 % (11.6-15.6); WHITE BLOOD COUNT 5.4 K/mm3 (4.0-10.0)
[2018-12-12 07:30] LABS: ALBUMIN 1.8 g/dl (3.4-5.0); ALK PHOS 183 U/L (45-117); ANION GAP 8 MMOL/L (8-16); BILIRUBIN,TOTAL 0.5 mg/dL (0.2-1); BLOOD UREA NITROGEN 12 mg/dL (7-18); CALCIUM 8.2 mg/dL (8.5-10.1); CHLORIDE 104 mmol/L (98-107); CO2 26 mmol/L (21-32); GLUCOSE,RANDOM 191 mg/dL (74-106); MAGNESIUM 1.7 mg/dL (1.8-2.4); PHOSPHOROUS 2.4 mg/dL (2.5-4.9); POTASSIUM 3.8 mmol/L (3.5-5.1); SGOT/AST 11 U/L (15-37); SGPT/ALT 9 U/L (13-61); SODIUM 139 mmol/L (136-145); TOT PROT 6.7 g/dl (6.4-8.2)
[2018-12-12] MEDS: ACETAMINOPHEN 1000 MG/100 ML VIAL (NON FORMULARY) IVPB PRN ×2 (08:18→17:03)
[2018-12-12] MEDS: cloNIDine HCL 0.1 MG TABLET PO SCH (10:01)
--- NOTE | 2018-12-12 11:51 | PN ---
Progress Note (short form) - Note Progress Note: s: no cp sob palps dizzy o: Vital Signs Period Temp Pulse Resp BP Sys/Pascual Pulse Ox Last 24 Hr 98.0 F-98.6 F 59-64 18-20 114-141/57-73 95 Constitutional: Yes: Well Nourished, No Distress, Calm Eyes: Yes: Conjunctiva Clear Respiratory: Yes: Regular, CTA Bilaterally Gastrointestinal: Yes: Tenderness Cardiovascular: Yes: irreg JVD: No Heart Sounds: Yes: S1, S2 Murmur: No: Systolic Murmur Extremities: No: Cold Edema: No Peripheral Pulses: 2+ Left Doralis Pedis, 2+ Right Dorsalis Pedis Integumentary: No: Jaundice Neurological: Yes: Alert, Oriented Psychiatric: No: Agitated Current Medications Generic Name Dose Route Start Last Admin Trade Name Freq PRN Reason Stop Dose Admin Acetaminophen 650 mg 11/29/18 11:22 12/06/18 11:32 Tylenol - PO 650 mg Q6H PRN Administration Pain Level 4 - 10 Allopurinol 100 mg 11/30/18 10:00 12/06/18 11:11 Zyloprim - PO 100 mg DAILY [facility] Administration Amino Acids 30 ml 12/05/18 17:30 12/06/18 11:11 Prosource No Carb Liquid Pkt PO 30 ml BID@0800,1730 [facility] Administration Apixaban 5 mg 12/01/18 10:00 12/06/18 11:11 Eliquis - PO 5 mg BID [facility] Administration Atorvastatin Calcium 10 mg 11/29/18 22:00 12/05/18 21:49 Lipitor - PO 10 mg HS [facility] Administration Clonidine 0.2 mg 12/04/18 14:00 12/06/18 06:12 Catapres - PO 0.2 mg TID [facility] Administration Diltiazem HCl 10 mg 11/22/18 17:18 11/26/18 17:37 Cardizem Injection - IVPUSH 10 mg Q4H PRN Administration TACHYCARDIA Diltiazem HCl 360 mg 12/03/18 12:00 12/06/18 11:11 Cardizem Cd - PO 360 mg DAILY [facility] Administration Diphenhydramine HCl 25 mg 11/26/18 17:12 Benadryl Injection - IVPB Q6H PRN ITCH[facility] Docusate Sodium 100 mg 11/30/18 22:00 12/06/18 11:10 Colace - PO 100 mg BID [facility] Administration Insulin Aspart 1 vial 11/20/18 16:30 12/06/18 06:08 Novolog Vial Sliding Scale - SQ Not Given ACHS [facility] Protocol Insulin Detemir 20 units 12/05/18 17:16 12/05/18 17:38 Levemir Vial SQ 20 units HS [facility] Administration Magnesium Oxide 400 mg 12/04/18 11:15 12/06/18 11:11 Mag-Ox - PO 400 mg BID [facility] Administration Metoclopramide HCl 10 mg 12/03/18 07:00 12/06/18 11:11 Reglan - PO 10 mg TIDAC [facility] Administration Ondansetron HCl 4 mg 11/20/18 12:08 11/25/18 06:39 Zofran Injection IVPUSH 4 mg Q4H PRN Administration NAUSEA AND/OR VOMITING Oxycodone HCl 5 mg 12/05/18 16:36 12/05/18 17:57 Roxicodone - PO 5 mg Q4H PRN Administration Pain Level 8-10 BREAKTHROUGH Propranolol HCl 60 mg 11/30/18 10:00 12/06/18 11:12 Inderal La - PO 60 mg DAILY [facility] Administration Simethicone 80 mg 12/03/18 22:00 12/06/18 06:12 Mylicon - PO 80 mg TID [facility] Administration CBC, BMP 12/05/18 09:20 12/06/18 05:30 Assessment/Plan EKG: initial sinus, LVH, first deg AVB EKG 11/22 afib with RVR rate 135 bpm echo 11/2016 LV mildly dilated, nl LV function, sigmoid septum, RV nl, LA severely dilated, RA mildly enlarged, mild MR, mild TR, at least mild pulm HTN, RVSP at least 42 mmHg tele: sr, nsvt (7 beats) afib - in post op setting after ex lap, PAN - 11/25: converted spontaneously now to sinus - 11/26: overnight converted back to afib with RVR, dilt gtt was started, initially poor IV access now has been running, no improvement with additional lopressor 5 mg IV this morning. replete K and Mg, digoxin 0.125 mg IV x 1 ordered, cont dilt gtt - 11/27: started diltiazem 60 mg PO Q6H, increase to 90 mg Q6H, start propranolol 20 mg Q6H, uptitrate as tolerated, wean dilt gtt as tolerated -11/28-: rate controlled on po meds. eliquis started. -12/02-: sinus. continue diltiazem CD 360 mg daily, propranolol LA 60 mg daily. -12/07: soft BPs, hgb trending down. surgery f/u. hold eliquis until anemia stabilizes. -12/08: Hgb 7.8, agree with holding DOAC until hgb more stable - 12/09-: holding eliquis continue short acting diltiazem po, hr stable. long acting dilt and inderal on hold due to NPO. SBO s/p ex lap, PAN -surgery following, npo now -holding eliquis for now HTN -chronically suboptimal BP control at home -has been on mult meds including clonidine at home -lisinopril, chlorthalidone held here in setting of CHACHA, clonidine continued -hi dose diltiazem plus low dose propranolol started here to control rapid AF -12/07: bp's soft at present. decr clonidine 0.2 TID to 0.1 BID. continue other meds -hgb down, r/o postop bleeding--per surgery -continue short acting diltiazem po and clonidine. long acting dilt and inderal on hold due to NPO. pulm HTN, chronic diastolic HF - mild to mod, likely 2/2 diastolic CHF - appears euvolemic DM - manage per primary HLD - continue statin
[2018-12-12] MEDS ORDERED: dilTIAZem HCL 60 MG TABLET (FP) PO SCH (12:30)
--- NOTE | 2018-12-12 12:53 | PN ---
Progress Note (short form) - Note Progress Note: Renal follow up for CHACHA Pt seen and examined at the bedside remains NPO mild abd pain persists. Had some JONES this am Making urine. No chest pain, fever, chills, N/V/D no cough or SOB at rest Vital Signs Temperature 98.2 F 12/12/18 12:34 Pulse Rate 61 12/12/18 12:34 Respiratory Rate 16 12/12/18 12:34 Blood Pressure 182/79 H 12/12/18 12:34 O2 Sat by Pulse Oximetry (%) 97 12/12/18 09:00 Intake & Output 12/09/18 12/10/18 12/11/18 12/12/18 23:59 23:59 23:59 23:59 Intake Total 1460 1220 1638 1084 Output Total 300 650 Balance 2763 408 4200 1084 NAD RRR Dec BS slight abd tenderness + LE edema CBC, BMP 12/12/18 06:00 12/12/18 06:00 Current Medications Acetaminophen (Ofirmev Injection -) 1,000 mg IVPB Q6H PRN PRN Reason: PAIN LEVEL 6-10 Last Admin: 12/12/18 08:18 Dose: 1,000 mg Clonidine (Catapres -) 0.1 mg PO BID [facility] Last Admin: 12/12/18 10:01 Dose: 0.1 mg Diltiazem HCl (Cardizem Injection -) 10 mg IVPUSH Q4H PRN PRN Reason: TACHYCARDIA Last Admin: 11/26/18 17:37 Dose: 10 mg Diltiazem HCl (Cardizem -) 60 mg PO Q6HPO [facility] Last Admin: 12/12/18 12:35 Dose: 60 mg Diphenhydramine HCl (Benadryl Injection -) 25 mg IVPB Q6H PRN PRN Reason: ITCHING Furosemide (Lasix Injection -) 20 mg IVPUSH ONCE ONE Stop: 12/12/18 12:48 Heparin Sodium (Porcine) (Heparin -) 5,000 unit SQ TID [facility] Last Admin: 12/12/18 06:21 Dose: 5,000 unit Fat Emulsion Intravenous (Intralipid -) 250 mls @ 20.833 mls/hr IV DAILY@2200 [facility] Last Admin: 12/11/18 21:52 Dose: 20.833 mls/hr Potassium Chloride 40 meq/Calcium Gluconate 1,000 mg/Magnesium Sulfate 1 gm/ Folic Acid 1 mg/ Multivitamins/Minerals 10 ml/ Sterile Water/Amino Acids/ Dextrose 1,000 mls @ 41.667 mls/hr IVPB DAILY@1600 [facility] Last Admin: 12/11/18 19:00 Dose: 41.667 mls/hr Insulin Aspart (Novolog Vial Sliding Scale -) 1 vial SQ ACHS [facility]; Protocol Last Admin: 12/12/18 12:00 Dose: 4 units Metoclopramide HCl (Reglan Injection -) 10 mg IVPUSH Q8H [facility] Last Admin: 12/12/18 06:22 Dose: 10 mg Metoprolol Tartrate (Lopressor Injection -) 5 mg IVPUSH Q4H PRN PRN Reason: HYPERTENSION Last Admin: 12/12/18 06:22 Dose: 5 mg Morphine Sulfate (Morphine Sulfate) 2 mg IVPUSH Q4H PRN PRN Reason: Pain Level 8 - 10 BREAKTHROUGH Last Admin: 12/11/18 16:24 Dose: 2 mg Ondansetron HCl (Zofran Injection) 4 mg IVPUSH Q4H PRN PRN Reason: NAUSEA AND/OR VOMITING Last Admin: 11/25/18 06:39 Dose: 4 mg 72 year old woman with hx of CKD, Nephrolithiasis, DM who presented with Abd pain secondary to SBO s/p surgical intervention with CHACHA. #Recurrent CHACHA #SBO s/p OR #enterocutaneous fistula #Prolonged NPO #Hypoalbuminema #Abd wound infection #LE edema Renal function improved and stable Will continue TPN as patient remains NPO will continue to infuse just 1L daily as pt has signs of volume expansion (LE edema and JONES) will supplement Mg, Phos and K with TPN Lasix 20mg IV x 1 for management of edema monitor electrolytes daily Nutrition consult Thank you Ethan Ram DO
[2018-12-12] MEDS ORDERED: FUROSEMIDE 40 MG/4 ML INJECTABLE VIAL IVPUSH ONE (13:15)
--- NOTE | 2018-12-12 14:15 | PN ---
Progress Note, Physician Chief Complaint: patient is now on TPN and NPO no PO meds mild abdominal pain - Current Medication List Current Medications: Active Medications Acetaminophen (Ofirmev Injection -) 1,000 mg IVPB Q6H PRN PRN Reason: PAIN LEVEL 6-10 Last Admin: 12/12/18 08:18 Dose: 1,000 mg Clonidine (Catapres -) 0.1 mg PO BID [facility] Last Admin: 12/12/18 10:01 Dose: 0.1 mg Diltiazem HCl (Cardizem Injection -) 10 mg IVPUSH Q4H PRN PRN Reason: TACHYCARDIA Last Admin: 11/26/18 17:37 Dose: 10 mg Diltiazem HCl (Cardizem -) 60 mg PO Q6HPO [facility] Last Admin: 12/12/18 12:35 Dose: 60 mg Diphenhydramine HCl (Benadryl Injection -) 25 mg IVPB Q6H PRN PRN Reason: ITCHING Heparin Sodium (Porcine) (Heparin -) 5,000 unit SQ TID [facility] Last Admin: 12/12/18 06:21 Dose: 5,000 unit Fat Emulsion Intravenous (Intralipid -) 250 mls @ 20.833 mls/hr IV DAILY@2200 [facility] Last Admin: 12/11/18 21:52 Dose: 20.833 mls/hr Potassium Chloride 40 meq/Calcium Gluconate 1,000 mg/Magnesium Sulfate 1 gm/ Folic Acid 1 mg/ Multivitamins/Minerals 10 ml/ Sterile Water/Amino Acids/ Dextrose 1,000 mls @ 41.667 mls/hr IVPB DAILY@1600 [facility] Stop: 12/12/18 15:59 Last Admin: 12/11/18 19:00 Dose: 41.667 mls/hr Potassium Phosphate 15 mm/Calcium Gluconate 1,000 mg/Magnesium Sulfate 2 gm/ Folic Acid 1 mg/ Multivitamins/Minerals 10 ml/ Sterile Water/Amino Acids/ Dextrose 1,000 mls @ 41.667 mls/hr IVPB DAILY@1600 [facility] Insulin Aspart (Novolog Vial Sliding Scale -) 1 vial SQ ACHS [facility]; Protocol Last Admin: 12/12/18 12:00 Dose: 4 units Metoclopramide HCl (Reglan Injection -) 10 mg IVPUSH Q8H [facility] Last Admin: 12/12/18 06:22 Dose: 10 mg Metoprolol Tartrate (Lopressor Injection -) 5 mg IVPUSH Q4H PRN PRN Reason: HYPERTENSION Last Admin: 12/12/18 06:22 Dose: 5 mg Morphine Sulfate (Morphine Sulfate) 2 mg IVPUSH Q4H PRN PRN Reason: Pain Level 8 - 10 BREAKTHROUGH Last Admin: 12/11/18 16:24 Dose: 2 mg Ondansetron HCl (Zofran Injection) 4 mg IVPUSH Q4H PRN PRN Reason: NAUSEA AND/OR VOMITING Last Admin: 11/25/18 06:39 Dose: 4 mg - Objective Vital Signs: Vital Signs Temperature 97 F L 12/12/18 14:00 Pulse Rate 67 12/12/18 14:00 Respiratory Rate 20 12/12/18 14:00 Blood Pressure 181/85 H 12/12/18 14:00 O2 Sat by Pulse Oximetry (%) 97 12/12/18 09:00 Constitutional: Yes: Calm Cardiovascular: Yes: Regular Rate and Rhythm, S1, S2 Respiratory: Yes: CTA Bilaterally, Diminished (at bases) Gastrointestinal: Yes: Other (wound vac in place bowel sounds present) Musculoskeletal: Yes: Other (pic line) Edema: Yes Labs: CBC, BMP 12/12/18 06:00 12/12/18 06:00 INR, PTT INR 1.19 (0.82-1.09) 11/16/18 14:35 Problem List - Problems (1) Abdominal pain Assessment/Plan: 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 fistula now NPO no po meds wound vac in place in midline monitor lytes TPN started yesterday via picc line to get iv lasix today one dose needs about 6 weeks bowel rest and then [facility] for further surgical management iv pain control [id number] Code(s): R10.9 - UNSPECIFIED ABDOMINAL PAIN Qualifiers: Abdominal location: unspecified location Qualified Code(s): R10.9 - Unspecified abdominal pain (2) Headache Assessment/Plan: iv pain control if needed Code(s): R51 - HEADACHE (3) Atrial fibrillation with RVR Assessment/Plan: hold eliquis iv lorpessor iv cardizem (4) S/P ureteral stent placement Assessment/Plan: seen by urology needs laser lithotripsy as an outpatient r Code(s): Z96.0 - PRESENCE OF UROGENITAL IMPLANTS (5) Diabetes mellitus type 2 in obese Assessment/Plan: monitor bgm may need to restart levemir consult noted sliding scale Code(s): E11.69 - TYPE 2 DIABETES MELLITUS WITH OTHER SPECIFIED COMPLICATION; E66.9 - OBESITY, UNSPECIFIED (6) Adrenal adenoma Assessment/Plan: dexa supression test failed will need repeat test later as outpatient per endocrine Code(s): D35.00 - BENIGN NEOPLASM OF UNSPECIFIED ADRENAL GLAND
[2018-12-12] MEDS ORDERED: cloNIDine-TTS 0.1 MG/24 HRS PATCH.TDWK TD SCH (15:00)
[2018-12-12] MEDS ORDERED: CALCIUM GLUCONATE IVPB SCH (16:00)
[2018-12-12] MEDS ORDERED: MAGNESIUM SULFATE IVPB SCH (16:00)
[2018-12-12] MEDS ORDERED: [UNRECOGNIZED DRUG - OTHER] IVPB SCH (16:00)
[2018-12-12] MEDS ORDERED: POTASSIUM PHOSPHATE IVPB SCH (16:00)
[2018-12-12] MEDS: MORPHINE SULFATE 2 MG/ML VIAL IVPUSH PRN (17:43)
--- NOTE | 2018-12-12 19:09 | PN ---
Progress Note, Physician History of Present Illness: POD22 s/p extensive lysis of intestinal adhesions for developing SBO, with suture repair of small RUQ incisional hernia from inside, with findings of previous intestinal reconstruction/hepaticojejunostomy, done years ago after post-cholecystectomy complications per pt. Also with likely PTFE mesh in situ from subsequent incarcerated umbilical hernia repair, was split in upper aspect for laparotomy. Pt postop had new onset of afib with RVR and was transferred to telemetry, now in sinus and rate controlled on meds. Eliquis was started, then held since Sunday. Postop, she tolerated soft diabetic diet, though with marginal po intake. Ambulating, voiding, with bowel function, though no BM now for 2 days. Abd pain at times, managing with tylenol, narcotics as breakthrough. Lower pole of abdominal incision was opened when abhay were removed for spontaneous drainage, and packed. Last weekend, there was more yellow drainage than previously, with a concern of possible sb fistula. CT with po contrast showed no contrast leakage above the fascia or out of the bowel. The rest of the incision was reopened, cultured, and packed, then VAC was placed the next day with white foam at base over fascia. She has been NPO except meds since Sunday, now complete NPO with TPN and IV meds only, via PICC placed yesterday. Seen earlier today in solarium, now examined in bed. Intermittent abdominal pain , doing ok on mostly tylenol with occasional morphine. VAC intact with ~225ml brown/syed fluid in canister since change 2d ago. Renal is ordering TPN, note reviewed - on 1L/day, getting Lasix this evening. - Current Medication List Current Medications: Active Medications Acetaminophen (Ofirmev Injection -) 1,000 mg IVPB Q6H PRN PRN Reason: PAIN LEVEL 6-10 Last Admin: 12/12/18 17:03 Dose: 1,000 mg Clonidine HCl (Catapres Tts Patch -) 0.1 mg TD Q7D@1000 [facility] Last Admin: 12/12/18 16:27 Dose: 0.1 mg Diltiazem HCl (Cardizem Injection -) 10 mg IVPUSH Q4H PRN PRN Reason: TACHYCARDIA Last Admin: 11/26/18 17:37 Dose: 10 mg Diphenhydramine HCl (Benadryl Injection -) 25 mg IVPB Q6H PRN PRN Reason: ITCHING Heparin Sodium (Porcine) (Heparin -) 5,000 unit SQ TID [facility] Last Admin: 12/12/18 16:26 Dose: 5,000 unit Fat Emulsion Intravenous (Intralipid -) 250 mls @ 20.833 mls/hr IV DAILY@2200 [facility] Last Admin: 12/11/18 21:52 Dose: 20.833 mls/hr Potassium Phosphate 15 mm/Calcium Gluconate 1,000 mg/Magnesium Sulfate 2 gm/ Folic Acid 1 mg/ Multivitamins/Minerals 10 ml/ Sterile Water/Amino Acids/ Dextrose 1,000 mls @ 41.667 mls/hr IVPB DAILY@1600 [facility] Last Admin: 12/12/18 16:27 Dose: 41.667 mls/hr Insulin Aspart (Novolog Vial Sliding Scale -) 1 vial SQ ACHS [facility]; Protocol Last Admin: 12/12/18 17:24 Dose: 15 units Metoclopramide HCl (Reglan Injection -) 10 mg IVPUSH Q8H [facility] Last Admin: 12/12/18 16:27 Dose: 10 mg Metoprolol Tartrate (Lopressor Injection -) 5 mg IVPUSH Q4H PRN PRN Reason: HYPERTENSION Last Admin: 12/12/18 06:22 Dose: 5 mg Morphine Sulfate (Morphine Sulfate) 2 mg IVPUSH Q4H PRN PRN Reason: Pain Level 8 - 10 BREAKTHROUGH Last Admin: 12/12/18 17:43 Dose: 2 mg Ondansetron HCl (Zofran Injection) 4 mg IVPUSH Q4H PRN PRN Reason: NAUSEA AND/OR VOMITING Last Admin: 11/25/18 06:39 Dose: 4 mg - Objective Vital Signs: Vital Signs Temperature 98.3 F 12/12/18 17:00 Pulse Rate 68 12/12/18 17:00 Respiratory Rate 20 12/12/18 17:00 Blood Pressure 190/93 H 12/12/18 17:00 O2 Sat by Pulse Oximetry (%) 97 12/12/18 09:00 Vital Signs Period Temp Pulse Resp BP Sys/Pascual Pulse Ox Last 24 Hr 97 F-98.5 F 61-92 16-20 149-190/73-93 97-97 Constitutional: Yes: No Distress, Calm, Obese Eyes: Yes: Conjunctiva Clear, EOM Intact HENT: Yes: Atraumatic, Normocephalic Gastrointestinal: Yes: Soft, Abdomen, Obese, Tenderness (mild, incisional and upper abdomen) Extremities: No: Cool, Cyanosis Integumentary: Yes: Incision (with VAC). No: Jaundice, Rash Wound/Incision: Yes: Dressing Dry and Intact (VAC intact at -125mm cont pressure ), Dressing Removed (and VAC changed - white foam in base over fascial level ( necrosing with orange enteric contact evident in wound), black foam over that with larger piece bridged for trac-pad; good seal obtained), Draining (orange/ brown fluid in canister, ~225ml in 2 days), Unapproximated (all wound alonso pink , granulating, clean with no more undermining at superior and inferior corners; fascia in base with intact suture but necrotic fascia in mid-portion, cut edges of in situ mesh visible in lower portion of wound under fascial level, enteric opening suspected just above/at upper edges of cut mesh, underneath -- small plug of fibrous/fibrinous, brown necrotic tissue removed from this area with some gas bubbles expelled behind it - exact point of fistula cannot be seen clearly). No: Reddened Neurological: Yes: Alert, Oriented. No: Unsteady Gait (ambulating fairly well with walker and assistance for VAC and IV pole) Labs: CBC, BMP 12/12/18 06:00 12/12/18 06:00 CMP Sodium 139 mmol/L (136-145) 12/12/18 06:00 Potassium 3.8 mmol/L (3.5-5.1) 12/12/18 06:00 Chloride 104 mmol/L (98-107) 12/12/18 06:00 Carbon Dioxide 26 mmol/L (21-32) 12/12/18 06:00 Anion Gap 8 MMOL/L (8-16) 12/12/18 06:00 BUN 12 mg/dL (7-18) 12/12/18 06:00 Creatinine 1.0 mg/dL (0.55-1.3) 12/12/18 06:00 Creat Clearance w eGFR 54.20 (>60) 12/12/18 06:00 POC Glucometer 215 UNITS (80-120) 12/12/18 17:22 Random Glucose 191 mg/dL (74-106) H 12/12/18 06:00 Hemoglobin A1c % 8.9 % (4.2-6.3) H 11/17/18 06:40 Lactic Acid 1.3 mmol/L (0.4-2.0) 11/19/18 22:35 Calcium 8.2 mg/dL (8.5-10.1) L 12/12/18 06:00 Phosphorus 2.4 mg/dL (2.5-4.9) L 12/12/18 06:00 Magnesium 1.7 mg/dL (1.8-2.4) L 12/12/18 06:00 Iron 9 ug/dL (27-139) L 12/07/18 12:20 TIBC 153 ug/dL (250-450) L 12/07/18 12:20 Iron Saturation 6 % (15-55) L 12/07/18 12:20 Ferritin 115.9 ng/ml (8-388) 12/07/18 07:20 Total Bilirubin 0.5 mg/dL (0.2-1) 12/12/18 06:00 AST 11 U/L (15-37) L 12/12/18 06:00 ALT 9 U/L (13-61) L 12/12/18 06:00 Alkaline Phosphatase 183 U/L (45-117) H 12/12/18 06:00 LD Total 152 U/L (84-246) 11/19/18 20:00 Troponin I 0.03 ng/ml (0.00-0.05) 11/16/18 14:18 C-Reactive Protein 5.7 MG/DL (0.00-0.3) H 11/29/18 05:30 Total Protein 6.7 g/dl (6.4-8.2) 12/12/18 06:00 Albumin 1.8 g/dl (3.4-5.0) L 12/12/18 06:00 Prealbumin 8.5 mg/dl (20-40) L 12/11/18 12:25 Triglycerides 85 mg/dL (0-150) 12/11/18 12:25 Total Amylase 50 U/L (25-115) 11/19/18 20:00 Lipase 154 U/L (73-393) 11/19/18 20:00 Vitamin B12 312 pg/ml (193-986) 12/07/18 07:20 TSH 1.10 uIU/ml (0.358-3.74) 12/07/18 07:20 Free T4 1.41 ng/dl (0.76-1.46) 12/07/18 07:20 Cortisol AM Sample 8.7 ug/dL (6.2-19.4) 12/04/18 05:30 ACTH 2.2 PG/ML (7.2-63.3) L 12/04/18 05:30 lytes to be addressed in TPN BUN/Cr at lowest value yet Problem List - Problems (1) Intestinal adhesions with partial obstruction Assessment/Plan: POD22 s/p extensive lysis of adhesions and RUQ incisional hernia repair s/p hepaticojejunostomy in past with intestinal reconstruction - with dilated/ stagnant loop of anastomotic area had small enterotomy with small yellow fluid leakage repaired in proximal SB ( hepatic limb?) up under RUQ scar, near incisional hernia, minimal contamination POD5 s/p complex I&D of postop wound infection enterocutaneous fistula present VAC in place, changed with nurse and pt's granddaughter present COMPLETE NPO with TPN, IV meds only now has PICC line from IR pain meds prn - tylenol first line trend labs, monitor lytes, glucose discussed with Dr. Medrano earlier today Code(s): K56.51 - INTESTINAL ADHESIONS [BANDS], WITH PARTIAL OBSTRUCTION (2) Infection following a procedure, superficial incisional surgical site, initial encounter Assessment/Plan: culture growing mostly sensitive E. coli, E. faecalis, yeast-like organism would not use antibiotics at this time Code(s): T81.41XA - INFCT FOL A PROC, SUPERFIC INCISIONAL SURGICAL SITE, INIT (3) Enterocutaneous fistula Assessment/Plan: in context of PTFE mesh in situ in field/wound and underlying abnormal intestinal anatomy discussing with surgeon at [facility] ? if pt should be transferred there for direct evaluation or first to LTAC for complex wound care ([facility] VAC with white foam/black foam), TPN (complete NPO) and telemetry needs will update as [facility] gets back to de Code(s): K63.2 - FISTULA OF INTESTINE (4) Persistent postprocedural fistula, initial encounter Assessment/Plan: enteric content in wound continue VAC - white foam in wound base, black over discussed with patient that transfer to tertiary center may be reasonable, given in situ mesh which will almost certainly need removal, and presence of fistula, with complex nature of intestinal anatomy underlying - pt is only 3 wks postop, which is not optimal timing for return to OR, and may require conservative management for a period of time until another operation can be considered Spoke with Dr. Rafael Calzada from [facility] today. He will get back to me shortly to discuss possible disposition for patient - transfer there vs LTACH first? TPN/complete NPO VAC changes about 3x weekly Code(s): T81.83XA - PERSISTENT POSTPROCEDURAL FISTULA, INITIAL ENCOUNTER (5) Incisional hernia, without obstruction or gangrene Code(s): K43.2 - INCISIONAL HERNIA WITHOUT OBSTRUCTION OR GANGRENE (6) Atrial fibrillation with RVR Assessment/Plan: cardiology following in sinus and HR controlled on meds keep lytes repleted Eliquis on hold for now converted back to ALL IV meds, completely NPO discussed with Spencer Jacinto Code(s): I48.91 - UNSPECIFIED ATRIAL FIBRILLATION (7) Hypertension Assessment/Plan: cardio managing, meds back to all IV Code(s): I10 - ESSENTIAL (PRIMARY) HYPERTENSION Qualifiers: Hypertension type: essential hypertension Qualified Code(s): I10 - Essential (primary) hypertension (8) Diabetes mellitus type 2 in obese Assessment/Plan: endo following sugars still high will need insulin management along with TPN discussed with Dr. Benavidez - he will monitor and address Code(s): E11.69 - TYPE 2 DIABETES MELLITUS WITH OTHER SPECIFIED COMPLICATION; E66.9 - OBESITY, UNSPECIFIED (9) S/P ureteral stent placement Assessment/Plan: urology had seen left ureteral stent in place; management per uro - pt may need laser lithotripsy with stent removal?, off anticoagulation mild increase in left hydronephrosis on last CT Code(s): Z96.0 - PRESENCE OF UROGENITAL IMPLANTS (10) Gout Assessment/Plan: home med on hold Code(s): M10.9 - GOUT, UNSPECIFIED Qualifiers: Gout site: toe Gout etiology: unspecified cause Chronicity: unspecified Laterality: unspecified laterality Qualified Code(s): M10.9 - Gout, unspecified (11) CKD (chronic kidney disease) stage 3, GFR 30-59 ml/min Assessment/Plan: nephrology following BUN/Cr down trend labs daily renal managing TPN got lasix today Code(s): N18.3 - CHRONIC KIDNEY DISEASE, STAGE 3 (MODERATE)
--- NOTE | 2018-12-12 19:30 | PN ---
Progress Note, Physician Chief Complaint: on tpn feeling tired - Current Medication List Current Medications: Active Medications Acetaminophen (Ofirmev Injection -) 1,000 mg IVPB Q6H PRN PRN Reason: PAIN LEVEL 6-10 Last Admin: 12/12/18 17:03 Dose: 1,000 mg Clonidine HCl (Catapres Tts Patch -) 0.1 mg TD Q7D@1000 [facility] Last Admin: 12/12/18 16:27 Dose: 0.1 mg Diltiazem HCl (Cardizem Injection -) 10 mg IVPUSH Q4H PRN PRN Reason: TACHYCARDIA Last Admin: 11/26/18 17:37 Dose: 10 mg Diphenhydramine HCl (Benadryl Injection -) 25 mg IVPB Q6H PRN PRN Reason: ITCHING Heparin Sodium (Porcine) (Heparin -) 5,000 unit SQ TID [facility] Last Admin: 12/12/18 16:26 Dose: 5,000 unit Fat Emulsion Intravenous (Intralipid -) 250 mls @ 20.833 mls/hr IV DAILY@2200 [facility] Last Admin: 12/11/18 21:52 Dose: 20.833 mls/hr Potassium Phosphate 15 mm/Calcium Gluconate 1,000 mg/Magnesium Sulfate 2 gm/ Folic Acid 1 mg/ Multivitamins/Minerals 10 ml/ Sterile Water/Amino Acids/ Dextrose 1,000 mls @ 41.667 mls/hr IVPB DAILY@1600 [facility] Last Admin: 12/12/18 16:27 Dose: 41.667 mls/hr Insulin Aspart (Novolog Vial Sliding Scale -) 1 vial SQ ACHS [facility]; Protocol Insulin Detemir (Levemir Vial) 20 units SQ AM [facility] Metoclopramide HCl (Reglan Injection -) 10 mg IVPUSH Q8H [facility] Last Admin: 12/12/18 16:27 Dose: 10 mg Metoprolol Tartrate (Lopressor Injection -) 5 mg IVPUSH Q4H PRN PRN Reason: HYPERTENSION Last Admin: 12/12/18 06:22 Dose: 5 mg Morphine Sulfate (Morphine Sulfate) 2 mg IVPUSH Q4H PRN PRN Reason: Pain Level 8 - 10 BREAKTHROUGH Last Admin: 12/12/18 17:43 Dose: 2 mg Ondansetron HCl (Zofran Injection) 4 mg IVPUSH Q4H PRN PRN Reason: NAUSEA AND/OR VOMITING Last Admin: 11/25/18 06:39 Dose: 4 mg - Objective Vital Signs: Vital Signs Temperature 98.3 F 12/12/18 17:00 Pulse Rate 68 12/12/18 17:00 Respiratory Rate 20 12/12/18 17:00 Blood Pressure 190/93 H 12/12/18 17:00 O2 Sat by Pulse Oximetry (%) 97 12/12/18 09:00 Constitutional: Yes: Calm Eyes: Yes: EOM Intact HENT: Yes: Normocephalic Neck: Yes: Trachea Midline Cardiovascular: Yes: Regular Rate and Rhythm Respiratory: Yes: CTA Bilaterally Gastrointestinal: Yes: Abdomen, Obese, Hypoactive Bowel Sounds ...Rectal Exam: Yes: Deferred Genitourinary: Yes: WNL Musculoskeletal: Yes: WNL Extremities: Yes: WNL Edema: Yes Edema: LLE: 1+, RLE: 1+ Wound/Incision: Yes: Other Neurological: Yes: Alert, Oriented Psychiatric: Yes: Alert, Oriented Labs: CBC, BMP 12/12/18 06:00 12/12/18 06:00 INR, PTT INR 1.19 (0.82-1.09) 11/16/18 14:35 Problem List - Problems (1) Adrenal adenoma Code(s): D35.00 - BENIGN NEOPLASM OF UNSPECIFIED ADRENAL GLAND (2) Atrial fibrillation with RVR Code(s): I48.91 - UNSPECIFIED ATRIAL FIBRILLATION (3) CKD (chronic kidney disease) stage 3, GFR 30-59 ml/min Code(s): N18.3 - CHRONIC KIDNEY DISEASE, STAGE 3 (MODERATE) (4) Constipation Code(s): K59.00 - CONSTIPATION, UNSPECIFIED (5) Diabetes mellitus type 2 in obese Code(s): E11.69 - TYPE 2 DIABETES MELLITUS WITH OTHER SPECIFIED COMPLICATION; E66.9 - OBESITY, UNSPECIFIED (6) Distended abdomen Code(s): R14.0 - ABDOMINAL DISTENSION (GASEOUS) (7) Diverticula of colon Code(s): K57.30 - DVRTCLOS OF LG INT W/O PERFORATION OR ABSCESS W/O BLEEDING (8) Generalized abdominal pain Code(s): R10.84 - GENERALIZED ABDOMINAL PAIN Assessment/Plan Current Active Problems Adrenal adenoma (Acute) Anemia (Acute) Atrial fibrillation with RVR (Acute) CKD (chronic kidney disease) stage 3, GFR 30-59 ml/min (Acute) Constipation (Acute) Diabetes mellitus type 2 in obese (Acute) Distended abdomen (Acute) Diverticula of colon (Acute) Enterocutaneous fistula (Acute) Generalized abdominal pain (Acute) Gout (Acute) Head ache (Acute) Headache (Acute) History of cholecystectomy (Acute) History of common bile duct surgery (Acute) Hypertension (Acute) Hypomagnesemia (Acute) Ileitis (Acute) Incisional hernia, without obstruction or gangrene (Acute) Infection following a procedure, superficial incisional surgical site, initial encounter (Acute) Intestinal adhesions with partial obstruction (Acute) New onset a-fib (Acute) Persistent postprocedural fistula, initial encounter (Acute) Pneumobilia (Acute) RUQ pain (Acute) S/P ureteral stent placement (Acute) Small bowel obstruction (Acute) Abnormal Lab Results 12/05/18 12/12/18 12/12/18 10:36 06:00 06:00 RBC 3.09 L Hgb 8.4 L Hct 25.2 L RDW 18.8 H Monocytes % 15.3 H Random Glucose 191 H Calcium 8.2 L Phosphorus 2.4 L Magnesium 1.7 L AST 11 L ALT 9 L Alkaline Phosphatase 183 H Albumin 1.8 L Ur Creatinine 24 Hour 603 L plan; bgm qid novolog insulin doses levemir 20 units am will titrate as needed for tighter control tpn for caloric management
[2018-12-12] MEDS ORDERED: PT OWN MED DRAWER 7, Y5N ONE (21:23)
[2018-12-12] MEDS: morphine SULFATE 4 MG/ML VIAL IVPUSH PRN (21:29)
[2018-12-12] MEDS: FAT EMULSIONS 250 ML IV SCH (21:31)
[2018-12-13] MEDS: morphine SULFATE 4 MG/ML VIAL IVPUSH PRN ×3 (01:44→14:21)
[2018-12-13 06:30] LABS: EOS % 3.9 % (0-4.5); HEMATOCRIT 25.8 % (32.4-45.2); HEMOGLOBIN 8.6 GM/dL (10.7-15.3); MCH 27.1 pg (25.7-33.7); MCHC 33.4 g/dl (32.0-36.0); MEAN CELL VOLUME 81.1 fl (80-96); MEAN PLT VOLUME 7.8 fl (7.5-11.1); NEUT % 63.1 % (42.8-82.8); PLATELET COUNT 367 K/MM3 (134-434); RBC 3.18 M/mm3 (3.60-5.2); RDW 19.9 % (11.6-15.6); WHITE BLOOD COUNT 5.2 K/mm3 (4.0-10.0)
[2018-12-13] MEDS: METOCLOPRAMIDE HCL INJECTION 10 MG/2 ML VIAL IVPUSH SCH ×2 (07:22→14:32)
[2018-12-13] MEDS: HEPARIN NA (PORCINE) 5,000 UNITS/ML 1ML VIAL SQ SCH ×2 (07:22→14:33)
[2018-12-13] MEDS: INSULIN (LEVEMIR) 100 UNITS/ML UNITS SQ SCH (07:31)
[2018-12-13] MEDS: INSULIN SLIDING SCALE (NOVOLOG) 1 VIAL SQ SCH ×3 (07:34→18:20)
[2018-12-13 08:04] LABS: ALBUMIN 1.8 g/dl (3.4-5.0); ALK PHOS 165 U/L (45-117); ANION GAP 8 MMOL/L (8-16); BILIRUBIN,TOTAL 0.4 mg/dL (0.2-1); BLOOD UREA NITROGEN 17 mg/dL (7-18); CALCIUM 8.4 mg/dL (8.5-10.1); CHLORIDE 100 mmol/L (98-107); CO2 31 mmol/L (21-32); GLUCOSE,RANDOM 207 mg/dL (74-106); MAGNESIUM 1.9 mg/dL (1.8-2.4); PHOSPHOROUS 2.5 mg/dL (2.5-4.9); POTASSIUM 3.4 mmol/L (3.5-5.1); SGOT/AST 11 U/L (15-37); SGPT/ALT 8 U/L (13-61); SODIUM 139 mmol/L (136-145); TOT PROT 6.8 g/dl (6.4-8.2)
[2018-12-13] MEDS: METOPROLOL TARTRATE 5 MG/5 ML VIAL IVPUSH PRN ×2 (08:44→16:46)
--- NOTE | 2018-12-13 09:35 | PN ---
Progress Note, Physician Chief Complaint: no CP or SOB TELE: NSR History of Present Illness: still hypertensive - Current Medication List Current Medications: Active Medications Acetaminophen (Ofirmev Injection -) 1,000 mg IVPB Q6H PRN PRN Reason: PAIN LEVEL 6-10 Last Admin: 12/12/18 17:03 Dose: 1,000 mg Clonidine HCl (Catapres Tts Patch -) 0.1 mg TD Q7D@1000 [facility] Last Admin: 12/12/18 16:27 Dose: 0.1 mg Diltiazem HCl (Cardizem Injection -) 10 mg IVPUSH Q4H PRN PRN Reason: TACHYCARDIA Last Admin: 11/26/18 17:37 Dose: 10 mg Diphenhydramine HCl (Benadryl Injection -) 25 mg IVPB Q6H PRN PRN Reason: ITCHING Heparin Sodium (Porcine) (Heparin -) 5,000 unit SQ TID [facility] Last Admin: 12/13/18 07:22 Dose: 5,000 unit Fat Emulsion Intravenous (Intralipid -) 250 mls @ 20.833 mls/hr IV DAILY@2200 [facility] Last Admin: 12/12/18 21:31 Dose: 20.833 mls/hr Potassium Phosphate 15 mm/Calcium Gluconate 1,000 mg/Magnesium Sulfate 2 gm/ Folic Acid 1 mg/ Multivitamins/Minerals 10 ml/ Sterile Water/Amino Acids/ Dextrose 1,000 mls @ 41.667 mls/hr IVPB DAILY@1600 [facility] Last Admin: 12/12/18 16:27 Dose: 41.667 mls/hr Insulin Aspart (Novolog Vial Sliding Scale -) 1 vial SQ ACHS [facility]; Protocol Last Admin: 12/13/18 07:34 Dose: 6 units Insulin Detemir (Levemir Vial) 20 units SQ AM [facility] Last Admin: 12/13/18 07:31 Dose: 20 units Metoclopramide HCl (Reglan Injection -) 10 mg IVPUSH Q8H [facility] Last Admin: 12/13/18 07:22 Dose: 10 mg Metoprolol Tartrate (Lopressor Injection -) 5 mg IVPUSH Q4H PRN PRN Reason: HYPERTENSION Last Admin: 12/13/18 08:44 Dose: 5 mg Morphine Sulfate (Morphine Sulfate) 2 mg IVPUSH Q4H PRN PRN Reason: Pain Level 8 - 10 BREAKTHROUGH Last Admin: 12/13/18 01:44 Dose: 2 mg Ondansetron HCl (Zofran Injection) 4 mg IVPUSH Q4H PRN PRN Reason: NAUSEA AND/OR VOMITING Last Admin: 11/25/18 06:39 Dose: 4 mg - Objective Vital Signs: Vital Signs Temperature 98.7 F 12/13/18 08:36 Pulse Rate 64 12/13/18 08:54 Respiratory Rate 18 12/13/18 08:54 Blood Pressure 180/91 H 12/13/18 08:54 O2 Sat by Pulse Oximetry (%) 97 12/13/18 08:36 Constitutional: Yes: No Distress Cardiovascular: Yes: Regular Rate and Rhythm Respiratory: Yes: CTA Bilaterally Gastrointestinal: Yes: Soft (no rebound) Edema: No Neurological: Yes: Alert, Oriented Labs: CBC, BMP 12/13/18 05:30 12/13/18 05:30 INR, PTT INR 1.19 (0.82-1.09) 11/16/18 14:35 Laboratory Tests 12/13/18 12/13/18 05:30 05:30 WBC 5.2 Hgb 8.6 L Hct 25.8 L Plt Count 367 Sodium 139 Potassium 3.4 L BUN 17 Creatinine 1.0 Magnesium 1.9 - ....Imaging EKG: Image Reviewed Assessment/Plan IMP: From the cardiac perspective, 2 issues: 1. PAF 2. Hypertension REC: 1.Patient is currently NPO secondary to her surgical situation. Continue IV metoprolol and continue telemetry. BP remains elevated, will titrate Clonidine 2. Eliquis on hold due to anemia and intermittent drops in H/H. Can consider starting UFH gtts (short acting) when H/H stable and when deemed safe from surgical perspective. 3. Cont SQ Heparin for DVT prophylaxis
[2018-12-13] MEDS ORDERED: cloNIDine-TTS 0.2 MG/24 HOURS PATCH.TDWK TD SCH (10:00)
--- NOTE | 2018-12-13 10:51 | EKG ---
Test Reason : Blood Pressure : / mmHG Vent. Rate : 151 BPM Atrial Rate : 076 BPM P-R Int : 000 ms QRS Dur : 120 ms QT Int : 336 ms P-R-T Axes : 000 -21 146 degrees QTc Int : 532 ms WIDE QRS TACHYCARDIA LEFT VENTRICULAR HYPERTROPHY WITH QRS WIDENING AND REPOLARIZATION ABNORMALITY ABNORMAL ECG WHEN COMPARED WITH ECG OF 24-NOV-2018 20:50, WIDE QRS TACHYCARDIA HAS REPLACED SINUS RHYTHM VENT. RATE HAS INCREASED BY 74 BPM Confirmed by MAYELIN SUERO MD ([id number]) on 12/13/2018 10:50:54 AM Referred By: Confirmed By:MAYELIN SUERO MD
[2018-12-13] MEDS ORDERED: PT OWN MED DRAWER 7, Y5N ONE (11:57)
--- NOTE | 2018-12-13 12:02 | PN ---
Progress Note (short form) - Note Progress Note: Renal follow up for CHACHA Pt seen and examined at the bedside awake and alert reports having chest tightness after walking this am has mild SOB as well making urine has mild abd pain as well no N/V/D NPO currently, on TPN Vital Signs Temperature 98.7 F 12/13/18 08:36 Pulse Rate 64 12/13/18 08:54 Respiratory Rate 18 12/13/18 08:54 Blood Pressure 180/91 H 12/13/18 08:54 O2 Sat by Pulse Oximetry (%) 97 12/13/18 08:36 Intake & Output 12/10/18 12/11/18 12/12/18 12/13/18 23:59 23:59 23:59 23:59 Intake Total 1220 1638 1828 Output Total 308 494 7646 Balance 570 1638 903 -1500 NAD RRR Dec BS slight abd tenderness + LE edema CBC, BMP 12/13/18 05:30 12/13/18 05:30 Current Medications Acetaminophen (Ofirmev Injection -) 1,000 mg IVPB Q6H PRN PRN Reason: PAIN LEVEL 6-10 Last Admin: 12/12/18 17:03 Dose: 1,000 mg Clonidine HCl (Catapres Tts Patch -) 0.2 mg TD Q7D@1000 [facility] Last Admin: 12/13/18 11:58 Dose: 0.2 mg Diltiazem HCl (Cardizem Injection -) 10 mg IVPUSH Q4H PRN PRN Reason: TACHYCARDIA Last Admin: 11/26/18 17:37 Dose: 10 mg Diphenhydramine HCl (Benadryl Injection -) 25 mg IVPB Q6H PRN PRN Reason: ITCHING Enalaprilat (Vasotec Injection -) 1.25 mg IVPB Q6H-IV [facility] Heparin Sodium (Porcine) (Heparin -) 5,000 unit SQ TID [facility] Last Admin: 12/13/18 07:22 Dose: 5,000 unit Fat Emulsion Intravenous (Intralipid -) 250 mls @ 20.833 mls/hr IV DAILY@2200 [facility] Last Admin: 12/12/18 21:31 Dose: 20.833 mls/hr Potassium Phosphate 15 mm/Calcium Gluconate 1,000 mg/Magnesium Sulfate 2 gm/ Folic Acid 1 mg/ Multivitamins/Minerals 10 ml/ Sterile Water/Amino Acids/ Dextrose 1,000 mls @ 41.667 mls/hr IVPB DAILY@1600 [facility] Last Admin: 12/12/18 16:27 Dose: 41.667 mls/hr Insulin Aspart (Novolog Vial Sliding Scale -) 1 vial SQ ACHS [facility]; Protocol Last Admin: 12/13/18 11:49 Dose: Not Given Insulin Detemir (Levemir Vial) 20 units SQ AM [facility] Last Admin: 12/13/18 07:31 Dose: 20 units Metoclopramide HCl (Reglan Injection -) 10 mg IVPUSH Q8H [facility] Last Admin: 12/13/18 07:22 Dose: 10 mg Metoprolol Tartrate (Lopressor Injection -) 5 mg IVPUSH Q4H PRN PRN Reason: HYPERTENSION Last Admin: 12/13/18 08:44 Dose: 5 mg Morphine Sulfate (Morphine Sulfate) 2 mg IVPUSH Q4H PRN PRN Reason: Pain Level 8 - 10 BREAKTHROUGH Last Admin: 12/13/18 10:24 Dose: 2 mg Ondansetron HCl (Zofran Injection) 4 mg IVPUSH Q4H PRN PRN Reason: NAUSEA AND/OR VOMITING Last Admin: 11/25/18 06:39 Dose: 4 mg 72 year old woman with hx of CKD, Nephrolithiasis, DM who presented with Abd pain secondary to SBO s/p surgical intervention with CHACHA. #Recurrent CHACHA #SBO s/p OR #enterocutaneous fistula #Prolonged NPO #Hypoalbuminema #Abd wound infection #LE edema #Chest Pain/Tightness Check EKG and Chest x-ray as pt is having chest tightness Cardiology to be consulted if CXR shows congestion can give additional Lasix BP is above goal, Clonidine increaed to 0.2mg patch this am will also start enalapril IV 1.2mg IV Q6h Goal BP for now < 150/90 Renal function improved and stable Will continue TPN as patient remains NPO Will increase volume of TPN to 1.2L today as per Nutrition recs Thank you Ethan Ram DO
[2018-12-13] MEDS: ENALAPRILAT DIHYDRATE 1.25 MG/1 ML VIAL IVPB SCH ×2 (12:29→15:15)
--- NOTE | 2018-12-13 12:59 | PN ---
Progress Note, Physician Chief Complaint: patient ambulated hallway got SOB with chest pressure ekg donw no new changes to get cxr clonidine patch increased - Current Medication List Current Medications: Active Medications Acetaminophen (Ofirmev Injection -) 1,000 mg IVPB Q6H PRN PRN Reason: PAIN LEVEL 6-10 Last Admin: 12/12/18 17:03 Dose: 1,000 mg Clonidine HCl (Catapres Tts Patch -) 0.2 mg TD Q7D@1000 [facility] Last Admin: 12/13/18 11:58 Dose: 0.2 mg Diltiazem HCl (Cardizem Injection -) 10 mg IVPUSH Q4H PRN PRN Reason: TACHYCARDIA Last Admin: 11/26/18 17:37 Dose: 10 mg Diphenhydramine HCl (Benadryl Injection -) 25 mg IVPB Q6H PRN PRN Reason: ITCHING Enalaprilat (Vasotec Injection -) 1.25 mg IVPB Q6H-IV [facility] Last Admin: 12/13/18 12:29 Dose: 1.25 mg Heparin Sodium (Porcine) (Heparin -) 5,000 unit SQ TID [facility] Last Admin: 12/13/18 07:22 Dose: 5,000 unit Fat Emulsion Intravenous (Intralipid -) 250 mls @ 20.833 mls/hr IV DAILY@2200 [facility] Last Admin: 12/12/18 21:31 Dose: 20.833 mls/hr Potassium Phosphate 15 mm/Calcium Gluconate 1,000 mg/Magnesium Sulfate 2 gm/ Folic Acid 1 mg/ Multivitamins/Minerals 10 ml/ Sterile Water/Amino Acids/ Dextrose 1,000 mls @ 41.667 mls/hr IVPB DAILY@1600 [facility] Last Admin: 12/12/18 16:27 Dose: 41.667 mls/hr Insulin Aspart (Novolog Vial Sliding Scale -) 1 vial SQ ACHS [facility]; Protocol Last Admin: 12/13/18 11:49 Dose: Not Given Insulin Detemir (Levemir Vial) 20 units SQ AM [facility] Last Admin: 12/13/18 07:31 Dose: 20 units Metoclopramide HCl (Reglan Injection -) 10 mg IVPUSH Q8H [facility] Last Admin: 12/13/18 07:22 Dose: 10 mg Metoprolol Tartrate (Lopressor Injection -) 5 mg IVPUSH Q4H PRN PRN Reason: HYPERTENSION Last Admin: 12/13/18 08:44 Dose: 5 mg Morphine Sulfate (Morphine Sulfate) 2 mg IVPUSH Q4H PRN PRN Reason: Pain Level 8 - 10 BREAKTHROUGH Last Admin: 12/13/18 10:24 Dose: 2 mg Ondansetron HCl (Zofran Injection) 4 mg IVPUSH Q4H PRN PRN Reason: NAUSEA AND/OR VOMITING Last Admin: 11/25/18 06:39 Dose: 4 mg - Objective Vital Signs: Vital Signs Temperature 98.7 F 12/13/18 08:36 Pulse Rate 83 12/13/18 12:08 Respiratory Rate 16 12/13/18 12:08 Blood Pressure 189/102 H 12/13/18 12:08 O2 Sat by Pulse Oximetry (%) 98 12/13/18 12:08 Constitutional: Yes: Calm Cardiovascular: Yes: Regular Rate and Rhythm, S1, S2 Respiratory: Yes: CTA Bilaterally, Diminished (at bases) Gastrointestinal: Yes: Soft, Other (wound vac) Edema: Yes Neurological: Yes: Alert, Oriented Labs: CBC, BMP 12/13/18 05:30 12/13/18 05:30 INR, PTT INR 1.19 (0.82-1.09) 11/16/18 14:35 Problem List - Problems (1) Abdominal pain Assessment/Plan: 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 fistula now NPO no po meds wound vac in place in midline monitor lytes TPN started yesterday via picc line to get iv lasix today one dose after cxr is done needs about 6 weeks bowel rest and then [facility] for further surgical management iv pain control dvtppx Code(s): R10.9 - UNSPECIFIED ABDOMINAL PAIN Qualifiers: Abdominal location: unspecified location Qualified Code(s): R10.9 - Unspecified abdominal pain (2) Atrial fibrillation with RVR Assessment/Plan: hold eliquis iv lorpessor iv cardizem (3) S/P ureteral stent placement Assessment/Plan: seen by urology needs laser lithotripsy as an outpatient r Code(s): Z96.0 - PRESENCE OF UROGENITAL IMPLANTS (4) Diabetes mellitus type 2 in obese Assessment/Plan: monitor bgm may need to restart levemir consult noted sliding scale Code(s): E11.69 - TYPE 2 DIABETES MELLITUS WITH OTHER SPECIFIED COMPLICATION; E66.9 - OBESITY, UNSPECIFIED (5) Adrenal adenoma Assessment/Plan: dexa supression test failed will need repeat test later as outpatient per endocrine Code(s): D35.00 - BENIGN NEOPLASM OF UNSPECIFIED ADRENAL GLAND (6) Headache Assessment/Plan: iv pain control if needed Code(s): R51 - HEADACHE (7) Hypertension Assessment/Plan: iv enalapril added clonidine patch increased to .2 mg Code(s): I10 - ESSENTIAL (PRIMARY) HYPERTENSION Qualifiers: Hypertension type: essential hypertension Qualified Code(s): I10 - Essential (primary) hypertension
[2018-12-13] MEDS: ACETAMINOPHEN 1000 MG/100 ML VIAL (NON FORMULARY) IVPB PRN (14:25)
[2018-12-13] MEDS ORDERED: POTASSIUM PHOSPHATE IVPB SCH (16:00)
[2018-12-13] MEDS: dilTIAZem HCL 50 MG/10 ML - 10 ML VIAL IVPUSH PRN (16:00)
[2018-12-13] MEDS ORDERED: MAGNESIUM SULFATE IVPB SCH (16:00)
[2018-12-13] MEDS ORDERED: CALCIUM GLUCONATE IVPB SCH (16:00)
[2018-12-13] MEDS ORDERED: [UNRECOGNIZED DRUG - OTHER] IVPB SCH (16:00)
--- NOTE | 2018-12-13 16:36 | PN ---
Progress Note, Physician History of Present Illness: POD23 s/p extensive lysis of intestinal adhesions for developing SBO, with suture repair of small RUQ incisional hernia from inside, with findings of previous intestinal reconstruction/hepaticojejunostomy, done years ago after post-cholecystectomy complications per pt. Also with likely PTFE mesh in situ from subsequent incarcerated umbilical hernia repair, was split in upper aspect for laparotomy. Pt postop had new onset of afib with RVR and was transferred to telemetry, rate has been controlled on meds. Eliquis was started, then held since last weekend. Postop, she tolerated soft diabetic diet, though with marginal po intake. Ambulating, voiding, with bowel function, though no BM now for 3 days. Abd pain at times, managing with tylenol, narcotics as breakthrough. Lower pole of abdominal incision was opened when abhay were removed for spontaneous drainage, and packed. Last weekend, there was more yellow drainage than previously, with a concern of possible sb fistula. CT with po contrast showed no contrast leakage above the fascia or out of the bowel. The rest of the incision was reopened, cultured, and packed, then VAC was placed the next day with white foam at base over fascia. She was made NPO except meds Sunday, now complete NPO with TPN and IV meds only, via PICC. Seen and examined sitting in chair in room. This morning, she did have some significant pain in upper left abdomen which tylenol and morphine did not help right away, now is better. Family present on unit for her birthday. VAC intact with almost 450ml total in canister, about 200ml brown fluid on top since yesterday's change. Renal is managing TPN. BP high earlier, just now 129/93. HR currently back in 140s, just got Cardizem IV. K+ 3.4 today. - Current Medication List Current Medications: Active Medications Acetaminophen (Ofirmev Injection -) 1,000 mg IVPB Q6H PRN PRN Reason: PAIN LEVEL 6-10 Last Admin: 12/13/18 14:25 Dose: 1,000 mg Clonidine HCl (Catapres Tts Patch -) 0.2 mg TD Q7D@1000 [facility] Last Admin: 12/13/18 11:58 Dose: 0.2 mg Diltiazem HCl (Cardizem Injection -) 10 mg IVPUSH Q4H PRN PRN Reason: TACHYCARDIA Last Admin: 12/13/18 16:00 Dose: 10 mg Diphenhydramine HCl (Benadryl Injection -) 25 mg IVPB Q6H PRN PRN Reason: ITCHING Enalaprilat (Vasotec Injection -) 1.25 mg IVPB Q6H-IV [facility] Last Admin: 12/13/18 15:15 Dose: 1.25 mg Heparin Sodium (Porcine) (Heparin -) 5,000 unit SQ TID [facility] Last Admin: 12/13/18 14:33 Dose: 5,000 unit Fat Emulsion Intravenous (Intralipid -) 250 mls @ 20.833 mls/hr IV DAILY@2200 [facility] Last Admin: 12/12/18 21:31 Dose: 20.833 mls/hr Potassium Phosphate 15 mm/Calcium Gluconate 1,000 mg/Magnesium Sulfate 2 gm/ Folic Acid 1 mg/ Multivitamins/Minerals 10 ml/ Potassium Chloride 20 meq/ Sterile Water / Amino Acids/ Dextrose 1,200 mls @ 50 mls/hr IVPB DAILY@1600 [facility] Last Admin: 12/13/18 15:59 Dose: 50 mls/hr Insulin Aspart (Novolog Vial Sliding Scale -) 1 vial SQ [facility]; Protocol Last Admin: 12/13/18 11:49 Dose: Not Given Insulin Detemir (Levemir Vial) 20 units SQ AM [facility] Last Admin: 12/13/18 07:31 Dose: 20 units Metoclopramide HCl (Reglan Injection -) 10 mg IVPUSH Q8H [facility] Last Admin: 12/13/18 14:32 Dose: 10 mg Metoprolol Tartrate (Lopressor Injection -) 5 mg IVPUSH Q4H PRN PRN Reason: HYPERTENSION Last Admin: 12/13/18 08:44 Dose: 5 mg Morphine Sulfate (Morphine Sulfate) 2 mg IVPUSH Q4H PRN PRN Reason: Pain Level 8 - 10 BREAKTHROUGH Last Admin: 12/13/18 14:21 Dose: 2 mg Ondansetron HCl (Zofran Injection) 4 mg IVPUSH Q4H PRN PRN Reason: NAUSEA AND/OR VOMITING Last Admin: 11/25/18 06:39 Dose: 4 mg - Objective Vital Signs: Vital Signs Temperature 98.1 F 12/13/18 14:00 Pulse Rate 94 H 12/13/18 14:00 Respiratory Rate 16 12/13/18 12:08 Blood Pressure 174/94 H 12/13/18 14:00 O2 Sat by Pulse Oximetry (%) 98 12/13/18 12:08 Vital Signs Period Temp Pulse Resp BP Sys/Pascual Pulse Ox Last 24 Hr 97.9 F-98.7 F 61-94 16-20 168-190/72-102 97-99 Intake & Output 12/13/18 12/13/18 12/13/18 07:59 15:59 23:59 Intake Total 754 Output Total 1500 25 Balance -1500 729 Intake: IV 554 PICC 50 Venofer 504 IVPB 200 Output: Drainage 25 Abdomen 25 Urine 1500 Void 1500 Other: Voiding Method Toilet # Unmeasured Voids Void 3 Bowel Movement No Constitutional: Yes: No Distress, Calm, Obese Eyes: Yes: Conjunctiva Clear, EOM Intact HENT: Yes: Atraumatic, Normocephalic Gastrointestinal: Yes: Soft, Abdomen, Obese, Tenderness (mild incisional and some in LUQ medially). No: Tenderness, Rebound Extremities: No: Cool, Cyanosis Integumentary: Yes: Incision (w/VAC). No: Jaundice, Rash Wound/Incision: Yes: Dressing Dry and Intact (VAC intact at -125mm continuous pressure), Draining (brown fluid in canister), Unapproximated (wound under VAC with EC fistula). No: Dressing Removed Neurological: Yes: Alert, Oriented Labs: CBC, BMP 12/13/18 05:30 12/13/18 05:30 CMP Sodium 139 mmol/L (136-145) 12/13/18 05:30 Potassium 3.4 mmol/L (3.5-5.1) L 12/13/18 05:30 Chloride 100 mmol/L (98-107) 12/13/18 05:30 Carbon Dioxide 31 mmol/L (21-32) 12/13/18 05:30 Anion Gap 8 MMOL/L (8-16) 12/13/18 05:30 BUN 17 mg/dL (7-18) 12/13/18 05:30 Creatinine 1.0 mg/dL (0.55-1.3) 12/13/18 05:30 Creat Clearance w eGFR 54.05 (>60) 12/13/18 05:30 POC Glucometer 146 UNITS (80-120) 12/13/18 11:47 Random Glucose 207 mg/dL (74-106) H 12/13/18 05:30 Hemoglobin A1c % 8.9 % (4.2-6.3) H 11/17/18 06:40 Lactic Acid 1.3 mmol/L (0.4-2.0) 11/19/18 22:35 Calcium 8.4 mg/dL (8.5-10.1) L 12/13/18 05:30 Phosphorus 2.5 mg/dL (2.5-4.9) 12/13/18 05:30 Magnesium 1.9 mg/dL (1.8-2.4) 12/13/18 05:30 Iron 9 ug/dL (27-139) L 12/07/18 12:20 TIBC 153 ug/dL (250-450) L 12/07/18 12:20 Iron Saturation 6 % (15-55) L 12/07/18 12:20 Ferritin 115.9 ng/ml (8-388) 12/07/18 07:20 Total Bilirubin 0.4 mg/dL (0.2-1) 12/13/18 05:30 AST 11 U/L (15-37) L 12/13/18 05:30 ALT 8 U/L (13-61) L 12/13/18 05:30 Alkaline Phosphatase 165 U/L (45-117) H 12/13/18 05:30 LD Total 152 U/L (84-246) 11/19/18 20:00 Creatine Kinase 22 U/L (26-192) L 12/13/18 15:20 Troponin I 0.02 ng/ml (0.00-0.05) 12/13/18 15:20 C-Reactive Protein 5.7 MG/DL (0.00-0.3) H 11/29/18 05:30 Total Protein 6.8 g/dl (6.4-8.2) 12/13/18 05:30 Albumin 1.8 g/dl (3.4-5.0) L 12/13/18 05:30 Prealbumin 8.5 mg/dl (20-40) L 12/11/18 12:25 Triglycerides 85 mg/dL (0-150) 12/11/18 12:25 Total Amylase 50 U/L (25-115) 11/19/18 20:00 Lipase 154 U/L (73-393) 11/19/18 20:00 Vitamin B12 312 pg/ml (193-986) 12/07/18 07:20 TSH 1.10 uIU/ml (0.358-3.74) 12/07/18 07:20 Free T4 1.41 ng/dl (0.76-1.46) 12/07/18 07:20 Cortisol AM Sample 8.7 ug/dL (6.2-19.4) 12/04/18 05:30 ACTH 2.2 PG/ML (7.2-63.3) L 12/04/18 05:30 Problem List - Problems (1) Intestinal adhesions with partial obstruction Assessment/Plan: POD23 s/p extensive lysis of adhesions and RUQ incisional hernia repair s/p hepaticojejunostomy in past with intestinal reconstruction - with dilated/ stagnant loop of anastomotic area had small enterotomy with small yellow fluid leakage repaired in proximal SB ( hepatic limb?) up under RUQ scar, near incisional hernia, minimal contamination POD6 s/p complex I&D of postop wound infection enterocutaneous fistula present under midportion of midline wound VAC in place, changed yesterday with nurse and pt's granddaughter present COMPLETE NPO with TPN, IV meds only via PICC line from IR will d/c reglan pain meds prn - tylenol first line, morphine as needed breakthrough trend labs, monitor lytes, glucose would replete K+ Code(s): K56.51 - INTESTINAL ADHESIONS [BANDS], WITH PARTIAL OBSTRUCTION (2) Infection following a procedure, superficial incisional surgical site, initial encounter Assessment/Plan: culture growing mostly sensitive E. coli, E. faecalis, yeast-like organism would not use antibiotics at this time Code(s): T81.41XA - INFCT FOL A PROC, SUPERFIC INCISIONAL SURGICAL SITE, INIT (3) Enterocutaneous fistula Assessment/Plan: in context of PTFE mesh in situ in field/wound and underlying abnormal intestinal anatomy discussed with Dr. Calzada at [place] he is ok with transfer to [facility] for complex wound care ([employer] VAC with white foam/ black foam), TPN and telemetry needs he would then see her as outpatient in his office from [facility] in about 3 weeks ( 6 wks postop) to decide when to have her transferred to [place] for intervention discussed with Kiera from case management Code(s): K63.2 - FISTULA OF INTESTINE (4) Persistent postprocedural fistula, initial encounter Assessment/Plan: enteric content in wound consistent with fistula continue VAC - white foam in wound base, black over discussed with patient and family that transfer to [facility] is next appropriate move, for ongoing care, until it is time for evaluation by Dr. Rafael Calzada from [place] (6 wks postop; about 3 wks from now) VAC changes about 3x weekly TPN/complete NPO might be able to try po challenge during [facility] stay in another week or two to see if fistula output increases Code(s): T81.83XA - PERSISTENT POSTPROCEDURAL FISTULA, INITIAL ENCOUNTER (5) Incisional hernia, without obstruction or gangrene Code(s): K43.2 - INCISIONAL HERNIA WITHOUT OBSTRUCTION OR GANGRENE (6) Atrial fibrillation with RVR Assessment/Plan: keep lytes repleted Eliquis on hold for now converted back to ALL IV meds, completely NPO HR currently back up in 140s range - getting prn meds cardiology following Code(s): I48.91 - UNSPECIFIED ATRIAL FIBRILLATION (7) Hypertension Assessment/Plan: cardio managing, meds back to IV with clonidine patch Code(s): I10 - ESSENTIAL (PRIMARY) HYPERTENSION Qualifiers: Hypertension type: essential hypertension Qualified Code(s): I10 - Essential (primary) hypertension (8) Diabetes mellitus type 2 in obese Assessment/Plan: endo following glucose management along with TPN Code(s): E11.69 - TYPE 2 DIABETES MELLITUS WITH OTHER SPECIFIED COMPLICATION; E66.9 - OBESITY, UNSPECIFIED (9) S/P ureteral stent placement Assessment/Plan: urology had seen left ureteral stent in place; management per uro - pt may need laser lithotripsy with stent removal?, off anticoagulation mild increase in left hydronephrosis on last CT Code(s): Z96.0 - PRESENCE OF UROGENITAL IMPLANTS (10) Gout Assessment/Plan: home med on hold Code(s): M10.9 - GOUT, UNSPECIFIED Qualifiers: Gout site: toe Gout etiology: unspecified cause Chronicity: unspecified Laterality: unspecified laterality Qualified Code(s): M10.9 - Gout, unspecified (11) CKD (chronic kidney disease) stage 3, GFR 30-59 ml/min Assessment/Plan: nephrology following BUN/Cr down trend labs daily renal managing TPN Code(s): N18.3 - CHRONIC KIDNEY DISEASE, STAGE 3 (MODERATE)
[2018-12-13] MEDS ORDERED: morphine SULFATE 4 MG/ML VIAL IVPUSH PRN ×2 (17:13→17:14)
[2018-12-13] MEDS ORDERED: KCL 10 MEQ IVPB 10 MEQ/100 ML INFUS.BAG IVPB SCH (17:30)
[2018-12-13] MEDS ORDERED: MAGNESIUM SULF 50% (8.12 MEQ/2 ML-1 GM VIAL) IVPB ONE ×2 (18:47→19:45)
[2018-12-13] MEDS: DILTIAZEM INJECTION 125 MG in SODIUM CHLORIDE 100 ML IVPB SCH (19:49)
[2018-12-14] MEDS: MUPIROCIN 2% TOPICAL OINTMENT FOR DECOLONIZATION NS SCH ×3 (02:29→21:10)
[2018-12-14] MEDS: HEPARIN NA (PORCINE) 5,000 UNITS/ML 1ML VIAL SQ SCH ×4 (02:29→21:10)
[2018-12-14] MEDS: CHLORHEXIDINE GLUCONATE 4% CLEANSER FOR DECOLONIZATION TP SCH ×2 (02:30→21:11)
[2018-12-14] MEDS: INSULIN SLIDING SCALE (NOVOLOG) 1 VIAL SQ SCH ×5 (02:31→22:34)
[2018-12-14] MEDS: FAT EMULSIONS 250 ML IV SCH ×2 (02:31→22:33)
[2018-12-14] MEDS: METOPROLOL TARTRATE 5 MG/5 ML VIAL IVPUSH PRN ×2 (02:36→12:26)
[2018-12-14] MEDS: INSULIN (LEVEMIR) 100 UNITS/ML UNITS SQ SCH (06:02)
[2018-12-14 06:44] LABS: ALBUMIN 1.8 g/dl (3.4-5.0); ALK PHOS 158 U/L (45-117); ANION GAP 9 MMOL/L (8-16); BILIRUBIN,TOTAL 0.4 mg/dL (0.2-1); BLOOD UREA NITROGEN 25 mg/dL (7-18); CALCIUM 8.3 mg/dL (8.5-10.1); CHLORIDE 99 mmol/L (98-107); CO2 27 mmol/L (21-32); CREATININE 1.1 mg/dL (0.55-1.3); GLUCOSE,RANDOM 235 mg/dL (74-106); MAGNESIUM 2.2 mg/dL (1.8-2.4); POTASSIUM 3.4 mmol/L (3.5-5.1); SGOT/AST 17 U/L (15-37); SGPT/ALT 10 U/L (13-61); SODIUM 135 mmol/L (136-145); TOT PROT 7.2 g/dl (6.4-8.2)
[2018-12-14] MEDS: KCL 10 MEQ IVPB 10 MEQ/100 ML INFUS.BAG IVPB SCH ×2 (08:02→09:40)
[2018-12-14 08:08] LABS: BASO % 0.9 % (0-2.0); EOS % 3.5 % (0-4.5); HEMATOCRIT 28.9 % (32.4-45.2); HEMOGLOBIN 9.6 GM/dL (10.7-15.3); MCH 27.1 pg (25.7-33.7); MCHC 33.3 g/dl (32.0-36.0); MEAN CELL VOLUME 81.4 fl (80-96); MEAN PLT VOLUME 7.3 fl (7.5-11.1); MONO % 15.4 % (3.8-10.2); NEUT % 59.2 % (42.8-82.8); PLATELET COUNT 385 K/MM3 (134-434); RBC 3.55 M/mm3 (3.60-5.2); RDW 20.3 % (11.6-15.6); WHITE BLOOD COUNT 6.4 K/mm3 (4.0-10.0)
--- NOTE | 2018-12-14 08:11 | CONSULT ---
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 Last night brought to ICU for cardizem gtt in setting of RVR. She has been hypertensive with has been difficult to control on multiple agents, is being diuresed, is on TPN, and now is requiring increasing CCB for atrial fibrillation. Past Medical History [employer] Cardio/Vascular HTN,Hyperlipdemia Gastrointestinal Diverticulosis,Other Hepatobiliary Cholelithiasis (p bile duct surgery), Choledocholithiasis Renal/ Renal Inusuff (possible),Renal Calculi ( currently being treated as),UTI (h/o pyelonephritis. 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 ) ,Other Reproductive Postmenopausal Heme/Onc Anemia Infectious Disease Psych Rheumatology Gout Endocrine Diabetes Mellitus (adrenal adenoma),Other Past Surgical History Past Surgical History Cholecystectomy (ventral/?umbilical with mesh years ago),Colonoscopy (bilateral knee total knee replacement),Hernia Repair (Lumbar spine), Hysterectomy (left ureteral (placed early this month in [place])),Joint Replacement, Laminectomy ,Stent,Upper Endoscopy Current Medications Acetaminophen (Ofirmev Injection -) 1,000 mg IVPB Q6H PRN PRN Reason: Pain Level 4-10 Chlorhexidine Gluconate (Hibiclens For Decolonization -) 1 applic TP HS [facility] Last Admin: 12/14/18 02:30 Dose: 1 applic Clonidine HCl (Catapres Tts Patch -) 0.2 mg TD Q7D@1000 [facility] Last Admin: 12/13/18 11:58 Dose: 0.2 mg Diltiazem HCl (Cardizem Injection -) 10 mg IVPUSH Q4H PRN PRN Reason: TACHYCARDIA Last Admin: 12/13/18 16:00 Dose: 10 mg Diphenhydramine HCl (Benadryl Injection -) 25 mg IVPB Q6H PRN PRN Reason: ITCHING Heparin Sodium (Porcine) (Heparin -) 5,000 unit SQ TID [facility] Last Admin: 12/14/18 05:47 Dose: 5,000 unit Fat Emulsion Intravenous (Intralipid -) 250 mls @ 20.833 mls/hr IV DAILY@2200 [facility] Last Admin: 12/14/18 02:31 Dose: 20.833 mls/hr Potassium Phosphate 15 mm/Calcium Gluconate 1,000 mg/Magnesium Sulfate 2 gm/ Folic Acid 1 mg/ Multivitamins/Minerals 10 ml/ Potassium Chloride 20 meq/ Sterile Water / Amino Acids/ Dextrose 1,200 mls @ 50 mls/hr IVPB DAILY@1600 [facility] Last Admin: 12/13/18 15:59 Dose: 50 mls/hr Diltiazem HCl 125 mg/ Sodium (Chloride) 125 mls @ 5 mls/hr IVPB TITR [facility]; Protocol Last Titration: 12/14/18 03:02 Dose: 15 mg/hr, 15 mls/hr Potassium Chloride (Potassium Chloride 10 Meq Premix Ivpb -) 10 meq in 100 mls @ 100 mls/hr IVPB Q60M [facility] Stop: 12/14/18 09:14 Last Admin: 12/14/18 08:02 Dose: 100 mls/hr Insulin Aspart (Novolog Vial Sliding Scale -) 1 vial SQ ACHS [facility]; Protocol Last Admin: 12/14/18 06:02 Dose: 8 units Insulin Detemir (Levemir Vial) 20 units SQ AM [facility] Last Admin: 12/14/18 06:02 Dose: 20 units Metoprolol Tartrate (Lopressor Injection -) 5 mg IVPUSH Q4H PRN PRN Reason: HYPERTENSION Last Admin: 12/13/18 16:46 Dose: 5 mg Morphine Sulfate (Morphine Sulfate) 4 mg IVPUSH Q4H PRN PRN Reason: Pain Level 8 - 10 BREAKTHROUGH Morphine Sulfate (Morphine Sulfate) 2 mg IVPUSH Q4H PRN PRN Reason: Pain Level 6 - 8 BREAKTHROUGH Mupirocin (Bactroban Ointment (For Decolonization) -) 1 applic NS BID [facility] Stop: 12/18/18 21:59 Last Admin: 12/14/18 02:29 Dose: 1 applic Ondansetron HCl (Zofran Injection) 4 mg IVPUSH Q4H PRN PRN Reason: NAUSEA AND/OR VOMITING Last Admin: 11/25/18 06:39 Dose: 4 mg Vital Signs Temp 96.7 F L 12/14/18 06:00 Pulse 127 H 12/14/18 06:00 Resp 19 12/14/18 06:00 BP 135/101 H 12/14/18 06:00 Pulse Ox 96 12/13/18 22:04 Intake & Output 12/13/18 12/13/18 12/14/18 11:59 23:59 11:59 Intake Total 754 60 Output Total 1500 700 Balance -1500 54 60 Intake: IV 554 60 Cardizem Injection - 125 60 mg In Normal Saline - 100 ml @ 5 MG/HR 5 mls/hr IVPB TITR [facility] Rx#: [id number] PICC 50 Venofer 504 IVPB 200 Output: Drainage 25 Abdomen 25 Urine 1500 675 Void 1500 675 Other: Voiding Method Toilet Bedpan # Unmeasured Voids Void 3 Bowel Movement No No CBC, BMP 12/14/18 05:30 Troponin, BNP 12/13/18 12/13/18 12/14/18 15:20 22:15 05:30 Troponin I 0.02 0.16 H 0.20 H 12/14/18 05:30 Troponin I Cancelled PE: Gen: awake,alert without distress HEENT: EOMI, NCAT PULM: diminished bases, no wheezes, no distress CV: tachy, irreg, unable to apprec m/r/g ABD: soft, Non tender, wound vac in place with [place] somewhat foul smelling output , hypoactive BS EXT: dependent edema Neuro: non focal A/ 72 year old woman PMH DM2, HTN, CKD, nephrolithiasis s/p L ureteral stent, prolonged hospital course after SBO now with Afib RVR with chest tightness now resolved P/ -rate control with cardizem gtt, cardiology following, will need transition to long acting -holding eliquis for now, if h/H stable and no planned surgical intervention can restart -htn management with clonidine, CCB, BB - follow up repeat -glycemic control -OOB -wound care as per Dr Rodney Dispo: ok for floor once better rate control
--- NOTE | 2018-12-14 10:07 | PN ---
Progress Note (short form) - Note Progress Note: s: no cp sob palps dizzy o: Vital Signs Period Temp Pulse Resp BP Sys/Pascual Pulse Ox Last 24 Hr 96.7 F-98.4 F 81-165 16-92 108-189/65-118 96-98 Constitutional: Yes: Well Nourished, No Distress, Calm Eyes: Yes: Conjunctiva Clear Respiratory: Yes: Regular, CTA Bilaterally Gastrointestinal: Yes: Tenderness Cardiovascular: Yes: irreg JVD: No Heart Sounds: Yes: S1, S2 Murmur: No: Systolic Murmur Extremities: No: Cold Edema: No Peripheral Pulses: 2+ Left Doralis Pedis, 2+ Right Dorsalis Pedis Integumentary: No: Jaundice Neurological: Yes: Alert, Oriented Psychiatric: No: Agitated Current Medications Acetaminophen (Ofirmev Injection -) 1,000 mg IVPB Q6H PRN PRN Reason: Pain Level 4-10 Chlorhexidine Gluconate (Hibiclens For Decolonization -) 1 applic TP HS [facility] Last Admin: 12/14/18 02:30 Dose: 1 applic Clonidine HCl (Catapres Tts Patch -) 0.2 mg TD Q7D@1000 [facility] Last Admin: 12/13/18 11:58 Dose: 0.2 mg Diltiazem HCl (Cardizem Injection -) 10 mg IVPUSH Q4H PRN PRN Reason: TACHYCARDIA Last Admin: 12/13/18 16:00 Dose: 10 mg Diphenhydramine HCl (Benadryl Injection -) 25 mg IVPB Q6H PRN PRN Reason: ITCHING Heparin Sodium (Porcine) (Heparin -) 5,000 unit SQ TID [facility] Last Admin: 12/14/18 05:47 Dose: 5,000 unit Fat Emulsion Intravenous (Intralipid -) 250 mls @ 20.833 mls/hr IV DAILY@2200 [facility] Last Admin: 12/14/18 02:31 Dose: 20.833 mls/hr Potassium Phosphate 15 mm/Calcium Gluconate 1,000 mg/Magnesium Sulfate 2 gm/ Folic Acid 1 mg/ Multivitamins/Minerals 10 ml/ Potassium Chloride 20 meq/ Sterile Water / Amino Acids/ Dextrose 1,200 mls @ 50 mls/hr IVPB DAILY@1600 [facility] Last Admin: 12/13/18 15:59 Dose: 50 mls/hr Diltiazem HCl 125 mg/ Sodium (Chloride) 125 mls @ 5 mls/hr IVPB TITR [facility]; Protocol Last Titration: 12/14/18 03:02 Dose: 15 mg/hr, 15 mls/hr Insulin Aspart (Novolog Vial Sliding Scale -) 1 vial SQ ACHS [facility]; Protocol Last Admin: 12/14/18 06:02 Dose: 8 units Insulin Detemir (Levemir Vial) 20 units SQ AM [facility] Last Admin: 12/14/18 06:02 Dose: 20 units Metoprolol Tartrate (Lopressor Injection -) 5 mg IVPUSH Q4H PRN PRN Reason: HYPERTENSION Last Admin: 12/13/18 16:46 Dose: 5 mg Morphine Sulfate (Morphine Sulfate) 4 mg IVPUSH Q4H PRN PRN Reason: Pain Level 8 - 10 BREAKTHROUGH Morphine Sulfate (Morphine Sulfate) 2 mg IVPUSH Q4H PRN PRN Reason: Pain Level 6 - 8 BREAKTHROUGH Mupirocin (Bactroban Ointment (For Decolonization) -) 1 applic NS BID [facility] Stop: 12/18/18 21:59 Last Admin: 12/14/18 02:29 Dose: 1 applic Ondansetron HCl (Zofran Injection) 4 mg IVPUSH Q4H PRN PRN Reason: NAUSEA AND/OR VOMITING Last Admin: 11/25/18 06:39 Dose: 4 mg Assessment/Plan EKG: initial sinus, LVH, first deg AVB EKG 11/22 afib with RVR rate 135 bpm echo 11/2016 LV mildly dilated, nl LV function, sigmoid septum, RV nl, LA severely dilated, RA mildly enlarged, mild MR, mild TR, at least mild pulm HTN, RVSP at least 42 mmHg CTA chest 12/13 no PE, increase in size of R pleural effusion (small) and stable L pleural effusion tele: afib rate 110s overnight, this AM 160s (having BM) afib - in post op setting after ex lap, PAN. - 11/25: converted spontaneously now to sinus - 11/26: overnight converted back to afib with RVR, dilt gtt was started, initially poor IV access now has been running, no improvement with additional lopressor 5 mg IV this morning. replete K and Mg, digoxin 0.125 mg IV x 1 ordered, cont dilt gtt - 11/27: started diltiazem 60 mg PO Q6H, increase to 90 mg Q6H, start propranolol 20 mg Q6H, uptitrate as tolerated, wean dilt gtt as tolerated -11/28-7: rate controlled on po meds. eliquis started. -12/02-: sinus. continue diltiazem CD 360 mg daily, propranolol LA 60 mg daily. -12/07: soft BPs, hgb trending down. surgery f/u. hold eliquis until anemia stabilizes. -12/08: Hgb 7.8, agree with holding DOAC until hgb more stable - 12/09-: holding eliquis continue short acting diltiazem po, hr stable. long acting dilt and inderal on hold due to NPO. - 12/13-: monitoring in ICU for afib with RVR, dilt gtt and PRN lopressor. replete lytes for K >4.0 and Mg >2.0 SBO s/p ex lap, PAN -surgery following, npo now -holding eliquis for now HTN -chronically suboptimal BP control at home -has been on mult meds including clonidine at home -lisinopril, chlorthalidone held here in setting of CHACHA, clonidine continued -hi dose diltiazem plus low dose propranolol started here to control rapid AF - transitioned to clonidine patch while NPO pulm HTN, chronic diastolic HF - mild to mod, likely 2/2 diastolic CHF - appears euvolemic DM - manage per primary HLD - continue statin
--- NOTE | 2018-12-14 10:47 | PN ---
Progress Note (short form) - Note Progress Note: Renal follow up for CHACHA Pt seen and examined in the ICU awake and alert transferred to the ICU last night for Afib with RVR on TPN denies any cp or sob Vital Signs Temperature 96.7 F L 12/14/18 06:00 Pulse Rate 127 H 12/14/18 06:00 Respiratory Rate 12/14/18 06:00 Blood Pressure 135/101 H 12/14/18 06:00 O2 Sat by Pulse Oximetry (%) 96 12/13/18 22:04 Intake & Output 12/11/18 12/12/18 12/13/18 12/14/18 23:59 23:59 23:59 23:59 Intake Total 1638 1828 754 60 Output Total 925 2200 Balance 1638 903 -1446 60 NAD tachycardic Dec BS slight abd tenderness no edema CBC, BMP 12/14/18 07:50 12/14/18 05:30 Current Medications Acetaminophen (Ofirmev Injection -) 1,000 mg IVPB Q6H PRN PRN Reason: Pain Level 4-10 Chlorhexidine Gluconate (Hibiclens For Decolonization -) 1 applic TP HS [facility] Last Admin: 12/14/18 02:30 Dose: 1 applic Clonidine HCl (Catapres Tts Patch -) 0.2 mg TD Q7D@1000 [facility] Last Admin: 12/13/18 11:58 Dose: 0.2 mg Diltiazem HCl (Cardizem Injection -) 10 mg IVPUSH Q4H PRN PRN Reason: TACHYCARDIA Last Admin: 12/13/18 16:00 Dose: 10 mg Diphenhydramine HCl (Benadryl Injection -) 25 mg IVPB Q6H PRN PRN Reason: ITCHING Heparin Sodium (Porcine) (Heparin -) 5,000 unit SQ TID [facility] Last Admin: 12/14/18 05:47 Dose: 5,000 unit Fat Emulsion Intravenous (Intralipid -) 250 mls @ 20.833 mls/hr IV DAILY@2200 [facility] Last Admin: 12/14/18 02:31 Dose: 20.833 mls/hr Potassium Phosphate 15 mm/Calcium Gluconate 1,000 mg/Magnesium Sulfate 2 gm/ Folic Acid 1 mg/ Multivitamins/Minerals 10 ml/ Potassium Chloride 20 meq/ Sterile Water / Amino Acids/ Dextrose 1,200 mls @ 50 mls/hr IVPB DAILY@1600 [facility] Last Admin: 12/13/18 15:59 Dose: 50 mls/hr Diltiazem HCl 125 mg/ Sodium (Chloride) 125 mls @ 5 mls/hr IVPB TITR [facility]; Protocol Last Titration: 12/14/18 03:02 Dose: 15 mg/hr, 15 mls/hr Insulin Aspart (Novolog Vial Sliding Scale -) 1 vial SQ ACHS [facility]; Protocol Last Admin: 12/14/18 06:02 Dose: 8 units Insulin Detemir (Levemir Vial) 20 units SQ AM [facility] Last Admin: 12/14/18 06:02 Dose: 20 units Metoprolol Tartrate (Lopressor Injection -) 5 mg IVPUSH Q4H PRN PRN Reason: HYPERTENSION Last Admin: 12/13/18 16:46 Dose: 5 mg Morphine Sulfate (Morphine Sulfate) 4 mg IVPUSH Q4H PRN PRN Reason: Pain Level 8 - 10 BREAKTHROUGH Morphine Sulfate (Morphine Sulfate) 2 mg IVPUSH Q4H PRN PRN Reason: Pain Level 6 - 8 BREAKTHROUGH Mupirocin (Bactroban Ointment (For Decolonization) -) 1 applic NS BID [facility] Stop: 12/18/18 21:59 Last Admin: 12/14/18 10:04 Dose: 1 applic Ondansetron HCl (Zofran Injection) 4 mg IVPUSH Q4H PRN PRN Reason: NAUSEA AND/OR VOMITING Last Admin: 11/25/18 06:39 Dose: 4 mg 72 year old woman with hx of CKD, Nephrolithiasis, DM who presented with Abd pain secondary to SBO s/p surgical intervention with CHACHA. #Recurrent CHACHA #SBO s/p OR #enterocutaneous fistula #Prolonged NPO #Hypoalbuminema #Abd wound infection #LE edema #Chest Pain/Tightness Cardiology follow up regarding Afib with RVR on IV cardizem CTA of the chest showed no PE Continue clonidine patch holding IV enalapril given pt had contrast exposure Goal BP for now < 150/90 Renal function improved and stable Will continue TPN as patient remains NPO, increase volume to 1.5L today Thank you Ethan Ram DO
[2018-12-14 11:16] LABS: ANISOCYTOSIS 1+; MACROCYTOSIS 0; PLATELET ESTIMATE NORMAL
--- NOTE | 2018-12-14 11:59 | PN ---
Progress Note, Physician History of Present Illness: POD24 s/p extensive lysis of intestinal adhesions for developing SBO, with suture repair of small RUQ incisional hernia from inside, with findings of previous intestinal reconstruction/hepaticojejunostomy, done years ago after post-cholecystectomy complications per pt. Also with likely PTFE mesh in situ from subsequent incarcerated umbilical hernia repair, was split in upper aspect for laparotomy. Pt postop had new onset of afib with RVR and was transferred to telemetry, rate had been controlled on po meds. She was briefly on Eliquis, now on hold. Postop, she tolerated soft diabetic diet, though with marginal po intake. Ambulating, voiding, with bowel function, though no BM now for 3 days. Abd pain at times, managing with tylenol, narcotics as breakthrough. Lower pole of abdominal incision was opened when ahbay were removed for spontaneous drainage, and packed. Last weekend, there was more yellow drainage than previously, with a concern of possible sb fistula. CT with po contrast showed no contrast leakage above the fascia or out of the bowel. The rest of the incision was reopened, cultured, and packed, then VAC was placed the next day with white foam at base over fascia. She is now complete NPO with TPN and IV meds only, via PICC. Had CTA chest last night with no evidence of PE, very small pleural effusion. Was then transferred to ICU back in afib with RVR for cardizem drip. Seen and examined in bed. VAC intact with very little syed/brown fluid in canister since yesterday on way to CT when it was changed. Renal is managing TPN. K+ 3.4 again today, getting repletion. She c/o not being able to sleep. Nurse has given soap suds enema with some output but not formed. She has some pain, is getting morphine now for VAC change. - Current Medication List Current Medications: Active Medications Acetaminophen (Ofirmev Injection -) 1,000 mg IVPB Q6H PRN PRN Reason: Pain Level 4-10 Chlorhexidine Gluconate (Hibiclens For Decolonization -) 1 applic TP HS [facility] Last Admin: 12/14/18 02:30 Dose: 1 applic Clonidine HCl (Catapres Tts Patch -) 0.2 mg TD Q7D@1000 [facility] Last Admin: 12/13/18 11:58 Dose: 0.2 mg Diltiazem HCl (Cardizem Injection -) 10 mg IVPUSH Q4H PRN PRN Reason: TACHYCARDIA Last Admin: 12/13/18 16:00 Dose: 10 mg Diphenhydramine HCl (Benadryl Injection -) 25 mg IVPB Q6H PRN PRN Reason: ITCHING Heparin Sodium (Porcine) (Heparin -) 5,000 unit SQ TID [facility] Last Admin: 12/14/18 05:47 Dose: 5,000 unit Fat Emulsion Intravenous (Intralipid -) 250 mls @ 20.833 mls/hr IV DAILY@2200 [facility] Last Admin: 12/14/18 02:31 Dose: 20.833 mls/hr Potassium Phosphate 15 mm/Calcium Gluconate 1,000 mg/Magnesium Sulfate 2 gm/ Folic Acid 1 mg/ Multivitamins/Minerals 10 ml/ Potassium Chloride 20 meq/ Sterile Water / Amino Acids/ Dextrose 1,200 mls @ 50 mls/hr IVPB DAILY@1600 [facility] Stop: 12/14/18 15:59 Last Admin: 12/13/18 15:59 Dose: 50 mls/hr Diltiazem HCl 125 mg/ Sodium (Chloride) 125 mls @ 5 mls/hr IVPB TITR [facility]; Protocol Last Titration: 12/14/18 03:02 Dose: 15 mg/hr, 15 mls/hr Potassium Phosphate 15 mm/Calcium Gluconate 1,000 mg/Magnesium Sulfate 2 gm/ Folic Acid 1 mg/ Multivitamins/Minerals 10 ml/ Potassium Chloride 40 meq/ Sterile Water / Amino Acids/ Dextrose 1,500 mls @ 62.5 mls/hr IVPB DAILY@1600 [facility] Insulin Aspart (Novolog Vial Sliding Scale -) 1 vial SQ ACHS [facility]; Protocol Last Admin: 12/14/18 06:02 Dose: 8 units Insulin Detemir (Levemir Vial) 20 units SQ AM [facility] Last Admin: 12/14/18 06:02 Dose: 20 units Metoprolol Tartrate (Lopressor Injection -) 5 mg IVPUSH Q4H PRN PRN Reason: HYPERTENSION Last Admin: 12/13/18 16:46 Dose: 5 mg Morphine Sulfate (Morphine Sulfate) 4 mg IVPUSH Q4H PRN PRN Reason: Pain Level 8 - 10 BREAKTHROUGH Last Admin: 04/20/19 11:21 Dose: 4 mg Morphine Sulfate (Morphine Sulfate) 2 mg IVPUSH Q4H PRN PRN Reason: Pain Level 6 - 8 BREAKTHROUGH Mupirocin (Bactroban Ointment (For Decolonization) -) 1 applic NS BID [facility] Stop: 12/18/18 21:59 Last Admin: 12/14/18 10:04 Dose: 1 applic Ondansetron HCl (Zofran Injection) 4 mg IVPUSH Q4H PRN PRN Reason: NAUSEA AND/OR VOMITING Last Admin: 11/25/18 06:39 Dose: 4 mg - Objective Vital Signs: Vital Signs Temperature 98.8 F 12/14/18 10:00 Pulse Rate 135 H 12/14/18 10:00 Respiratory Rate 20 12/14/18 10:00 Blood Pressure 146/115 H 12/14/18 10:00 O2 Sat by Pulse Oximetry (%) 96 12/14/18 09:00 Vital Signs Period Temp Pulse Resp BP Sys/Pascual Pulse Ox Last 24 Hr 96.7 F-98.8 F 81-165 16-92 108-189/65-118 96-98 Constitutional: Yes: No Distress, Calm, Obese Eyes: Yes: Conjunctiva Clear, EOM Intact HENT: Yes: Atraumatic, Normocephalic Gastrointestinal: Yes: Soft, Abdomen, Obese, Tenderness (LUQ mild, less on right , + incisional tenderness) Extremities: No: Cool, Cyanosis Integumentary: Yes: Incision (midline w/VAC). No: Jaundice, Rash Wound/Incision: Yes: Dressing Dry and Intact (VAC to -125mm continuous pressure) , Dressing Removed (and VAC changed - white foam in base, black foam strip over that with larger piece of black foam bridged on top for trac-pad; good seal obtained), Draining (orange/yellow output in wound base, enteric contents, foul- smelling; syed/light brown fluid in canister), Unapproximated (wound alonso granulating nicely, pink, clean; base is partially necrotic fascia with suture still mainly intact, upper edges of in situ mesh visible in lower aspect underneath - EC fistula seems to be mainly below this area; wound measures 15 x 4.5cm x 2-2.5cm deep). No: Reddened Neurological: Yes: Alert, Oriented Labs: CBC, BMP 12/14/18 07:50 12/14/18 05:30 CMP Sodium 135 mmol/L (136-145) L 12/14/18 05:30 Potassium 3.4 mmol/L (3.5-5.1) L 12/14/18 05:30 Chloride 99 mmol/L (98-107) 12/14/18 05:30 Carbon Dioxide 27 mmol/L (21-32) 12/14/18 05:30 Anion Gap 9 MMOL/L (8-16) 12/14/18 05:30 BUN 25 mg/dL (7-18) H 12/14/18 05:30 Creatinine 1.1 mg/dL (0.55-1.3) 12/14/18 05:30 Creat Clearance w eGFR 48.42 (>60) 12/14/18 05:30 POC Glucometer 275 UNITS (80-120) 12/14/18 11:59 Random Glucose 235 mg/dL (74-106) H 12/14/18 05:30 Hemoglobin A1c % 8.9 % (4.2-6.3) H 11/17/18 06:40 Lactic Acid 1.3 mmol/L (0.4-2.0) 11/19/18 22:35 Calcium 8.3 mg/dL (8.5-10.1) L 12/14/18 05:30 Phosphorus 2.5 mg/dL (2.5-4.9) 12/13/18 05:30 Magnesium 2.2 mg/dL (1.8-2.4) 12/14/18 05:30 Iron 9 ug/dL (27-139) L 12/07/18 12:20 TIBC 153 ug/dL (250-450) L 12/07/18 12:20 Iron Saturation 6 % (15-55) L 12/07/18 12:20 Ferritin 115.9 ng/ml (8-388) 12/07/18 07:20 Total Bilirubin 0.4 mg/dL (0.2-1) 12/14/18 05:30 AST 17 U/L (15-37) 12/14/18 05:30 ALT 10 U/L (13-61) L 12/14/18 05:30 Alkaline Phosphatase 158 U/L (45-117) H 12/14/18 05:30 LD Total 152 U/L (84-246) 11/19/18 20:00 Creatine Kinase 29 U/L (26-192) 12/14/18 05:30 Troponin I 0.20 ng/ml (0.00-0.05) H 12/14/18 05:30 C-Reactive Protein 5.7 MG/DL (0.00-0.3) H 11/29/18 05:30 Total Protein 7.2 g/dl (6.4-8.2) 12/14/18 05:30 Albumin 1.8 g/dl (3.4-5.0) L 12/14/18 05:30 Prealbumin 8.5 mg/dl (20-40) L 12/11/18 12:25 Triglycerides 85 mg/dL (0-150) 12/11/18 12:25 Total Amylase 50 U/L (25-115) 11/19/18 20:00 Lipase 154 U/L (73-393) 11/19/18 20:00 Vitamin B12 312 pg/ml (193-986) 12/07/18 07:20 TSH 1.10 uIU/ml (0.358-3.74) 12/07/18 07:20 Free T4 1.41 ng/dl (0.76-1.46) 12/07/18 07:20 Cortisol AM Sample 8.7 ug/dL (6.2-19.4) 12/04/18 05:30 ACTH 2.2 PG/ML (7.2-63.3) L 12/04/18 05:30 - ....Imaging Cat Scan: Report Reviewed (chest CTA with no PE, small pleural effusion), Image Reviewed (images of upper abdomen just barely include upper portion of wound - contrast in colon underlying, cannot see area of EC fistula directly) Problem List - Problems (1) Intestinal adhesions with partial obstruction Assessment/Plan: POD24 s/p extensive lysis of adhesions and RUQ incisional hernia repair s/p hepaticojejunostomy in past with intestinal reconstruction - with dilated/ stagnant loop of anastomotic area had small enterotomy with small yellow fluid leakage repaired in proximal SB ( hepatic limb?) up under RUQ scar, near incisional hernia, minimal contamination POD7 s/p complex I&D of postop wound infection enterocutaneous fistula present under midportion of midline wound VAC in place, changed today - white foam strip over wound base/necrotic fascia, black strip over that with larger piece bridged on top for trac-pad COMPLETE NPO with TPN, IV meds only via PICC line from IR pain meds prn - tylenol first line, morphine as needed breakthrough trend labs, monitor lytes, glucose repleting K+ ICU can address insomnia discussed with Dr. Reyes - he was at bedside during VAC change Code(s): K56.51 - INTESTINAL ADHESIONS [BANDS], WITH PARTIAL OBSTRUCTION (2) Infection following a procedure, superficial incisional surgical site, initial encounter Assessment/Plan: culture growing mostly sensitive E. coli, E. faecalis, yeast-like organism would not use antibiotics at this time Code(s): T81.41XA - INFCT FOL A PROC, SUPERFIC INCISIONAL SURGICAL SITE, INIT (3) Enterocutaneous fistula Assessment/Plan: in context of PTFE mesh in situ in field/wound and underlying abnormal intestinal anatomy discussed with Dr. Calzada at [facility] he is ok with transfer to [facility] for complex wound care ([employer] VAC with white foam/ black foam), TPN and telemetry needs he would then see her as outpatient in his office from [facility] in another 2.5 weeks (6 wks postop) to decide when to have her transferred to [facility] for intervention will continue to discuss with CM Sunday Code(s): K63.2 - FISTULA OF INTESTINE (4) Persistent postprocedural fistula, initial encounter Assessment/Plan: enteric content in wound consistent with fistula continue VAC - white foam in wound base, black over plan is transfer to [facility] for ongoing care, until it is time for evaluation by Dr. Rafael Calzada from [facility] (6 wks postop) VAC changes about 3x weekly TPN/complete NPO might be able to try po [facility] or two to see if fistula output increases Code(s): T81.83XA - PERSISTENT POSTPROCEDURAL FISTULA, INITIAL ENCOUNTER (5) Incisional hernia, without obstruction or gangrene Code(s): K43.2 - INCISIONAL HERNIA WITHOUT OBSTRUCTION OR GANGRENE (6) Atrial fibrillation with RVR Assessment/Plan: keep lytes repleted Eliquis on hold for now converted back to ALL IV meds, completely NPO cardiology following in ICU for cardizem drip and rate control This patient is critically ill. Time spent reviewing chart, examining patient, talking with providers and/or family and documentation is 40 minutes. Code(s): I48.91 - UNSPECIFIED ATRIAL FIBRILLATION (7) Hypertension Assessment/Plan: cardio managing, meds back to IV with clonidine patch Code(s): I10 - ESSENTIAL (PRIMARY) HYPERTENSION Qualifiers: Hypertension type: essential hypertension Qualified Code(s): I10 - Essential (primary) hypertension (8) Diabetes mellitus type 2 in obese Assessment/Plan: endo following glucose management along with TPN Code(s): E11.69 - TYPE 2 DIABETES MELLITUS WITH OTHER SPECIFIED COMPLICATION; E66.9 - OBESITY, UNSPECIFIED (9) S/P ureteral stent placement Assessment/Plan: urology had seen left ureteral stent in place; management per uro - pt may need laser lithotripsy with stent removal?, off anticoagulation mild increase in left hydronephrosis on last CT Code(s): Z96.0 - PRESENCE OF UROGENITAL IMPLANTS (10) Gout Assessment/Plan: home med on hold Code(s): M10.9 - GOUT, UNSPECIFIED Qualifiers: Gout site: toe Gout etiology: unspecified cause Chronicity: unspecified Laterality: unspecified laterality Qualified Code(s): M10.9 - Gout, unspecified (11) CKD (chronic kidney disease) stage 3, GFR 30-59 ml/min Assessment/Plan: nephrology following trend labs daily renal managing TPN Code(s): N18.3 - CHRONIC KIDNEY DISEASE, STAGE 3 (MODERATE)
[2018-12-14] MEDS: ACETAMINOPHEN 1000 MG/100 ML VIAL (NON FORMULARY) IVPB PRN ×3 (12:11→22:38)
--- NOTE | 2018-12-14 14:22 | EKG ---
Test Reason : Blood Pressure : / mmHG Vent. Rate : 084 BPM Atrial Rate : 084 BPM P-R Int : 200 ms QRS Dur : 132 ms QT Int : 392 ms P-R-T Axes : 083 -23 033 degrees QTc Int : 463 ms NORMAL SINUS RHYTHM LEFT VENTRICULAR HYPERTROPHY WITH QRS WIDENING NONSPECIFIC T WAVE ABNORMALITY ABNORMAL ECG Confirmed by MD KAREN, RYLEY ([id number]) on 12/14/2018 2:22:22 PM Referred By: MATHEUS ABREU DR Confirmed By:RYLEY JONES MD
[2018-12-14] MEDS ORDERED: CALCIUM GLUCONATE IVPB SCH (16:00)
[2018-12-14] MEDS ORDERED: MAGNESIUM SULFATE IVPB SCH (16:00)
[2018-12-14] MEDS ORDERED: POTASSIUM PHOSPHATE IVPB SCH (16:00)
[2018-12-14] MEDS ORDERED: [UNRECOGNIZED DRUG - OTHER] IVPB SCH (16:00)
--- NOTE | 2018-12-14 16:28 | PN ---
Progress Note, Physician Chief Complaint: AWAKE ALERT SURGERY AND NURSING CHANGING ABDOMINAL WOUND MODERATE DISTRESS - Current Medication List Current Medications: Active Medications Acetaminophen (Ofirmev Injection -) 1,000 mg IVPB Q6H PRN PRN Reason: Pain Level 4-10 Last Admin: 12/14/18 12:11 Dose: 1,000 mg Chlorhexidine Gluconate (Hibiclens For Decolonization -) 1 applic TP HS [facility] Last Admin: 12/14/18 02:30 Dose: 1 applic Clonidine HCl (Catapres Tts Patch -) 0.2 mg TD Q7D@1000 [facility] Last Admin: 12/13/18 11:58 Dose: 0.2 mg Diltiazem HCl (Cardizem Injection -) 10 mg IVPUSH Q4H PRN PRN Reason: TACHYCARDIA Last Admin: 12/13/18 16:00 Dose: 10 mg Diphenhydramine HCl (Benadryl Injection -) 25 mg IVPB Q6H PRN PRN Reason: ITCHING Heparin Sodium (Porcine) (Heparin -) 5,000 unit SQ TID [facility] Last Admin: 12/14/18 13:50 Dose: 5,000 unit Fat Emulsion Intravenous (Intralipid -) 250 mls @ 20.833 mls/hr IV DAILY@2200 [facility] Last Admin: 12/14/18 02:31 Dose: 20.833 mls/hr Diltiazem HCl 125 mg/ Sodium (Chloride) 125 mls @ 5 mls/hr IVPB TITR [facility]; Protocol Last Titration: 12/14/18 03:02 Dose: 15 mg/hr, 15 mls/hr Potassium Phosphate 15 mm/Calcium Gluconate 1,000 mg/Magnesium Sulfate 2 gm/ Folic Acid 1 mg/ Multivitamins/Minerals 10 ml/ Potassium Chloride 40 meq/ Sterile Water / Amino Acids/ Dextrose 1,500 mls @ 62.5 mls/hr IVPB DAILY@1600 [facility] Last Admin: 12/14/18 15:58 Dose: 62.5 mls/hr Insulin Aspart (Novolog Vial Sliding Scale -) 1 vial SQ ACHS [facility]; Protocol Last Admin: 12/14/18 12:22 Dose: 8 units Insulin Detemir (Levemir Vial) 20 units SQ AM [facility] Last Admin: 12/14/18 06:02 Dose: 20 units Metoprolol Tartrate (Lopressor Injection -) 5 mg IVPUSH Q4H PRN PRN Reason: HYPERTENSION Last Admin: 12/14/18 12:26 Dose: 5 mg Morphine Sulfate (Morphine Sulfate) 4 mg IVPUSH Q4H PRN PRN Reason: Pain Level 8 - 10 BREAKTHROUGH Last Admin: 12/14/18 11:21 Dose: 4 mg Morphine Sulfate (Morphine Sulfate) 2 mg IVPUSH Q4H PRN PRN Reason: Pain Level 6 - 8 BREAKTHROUGH Last Admin: 12/14/18 13:49 Dose: 2 mg Mupirocin (Bactroban Ointment (For Decolonization) -) 1 applic NS BID [facility] Stop: 12/18/18 21:59 Last Admin: 12/14/18 10:04 Dose: 1 applic Ondansetron HCl (Zofran Injection) 4 mg IVPUSH Q4H PRN PRN Reason: NAUSEA AND/OR VOMITING Last Admin: 11/25/18 06:39 Dose: 4 mg - Objective Vital Signs: Vital Signs Temperature 98.8 F 12/14/18 10:00 Pulse Rate 75 12/14/18 13:00 Respiratory Rate 20 12/14/18 13:00 Blood Pressure 145/85 12/14/18 13:00 O2 Sat by Pulse Oximetry (%) 96 12/14/18 09:00 Constitutional: Yes: Moderate Distress Cardiovascular: Yes: Pulse Irregular Respiratory: Yes: Diminished, On Nasal O2 Gastrointestinal: Yes: Soft, Other (WOUND MIDLINE) Genitourinary: Yes: Incontinence Musculoskeletal: Yes: Muscle Weakness Edema: Yes Integumentary: Yes: Other Wound/Incision: Yes: Dressing Removed Neurological: Yes: WNL Labs: CBC, BMP 12/14/18 07:50 12/14/18 05:30 INR, PTT INR 1.19 (0.82-1.09) 11/16/18 14:35 Problem List - Problems (1) Abdominal pain Code(s): R10.9 - UNSPECIFIED ABDOMINAL PAIN Qualifiers: Abdominal location: unspecified location Qualified Code(s): R10.9 - Unspecified abdominal pain (2) Atrial fibrillation with RVR Code(s): I48.91 - UNSPECIFIED ATRIAL FIBRILLATION (3) CKD (chronic kidney disease) stage 3, GFR 30-59 ml/min Code(s): N18.3 - CHRONIC KIDNEY DISEASE, STAGE 3 (MODERATE) (4) Diabetes mellitus type 2 in obese Code(s): E11.69 - TYPE 2 DIABETES MELLITUS WITH OTHER SPECIFIED COMPLICATION; E66.9 - OBESITY, UNSPECIFIED (5) Small bowel obstruction Code(s): K56.609 - UNSP INTESTNL OBST, UNSP TO PARTIAL VERSUS COMPLETE OBST Assessment/Plan ABDOMINAL WOUND FOUL SMELLING CHANGED DRESSING, PAIN MEDS IV ABX SURGERY F/U APPRECIATED WILL CALL BACK R/O FISTULA INCENTIVE SPIROMETRY DVT PROPHYLAXIS ICU CARE APPRECIATED
[2018-12-14] MEDS: DILTIAZEM INJECTION 125 MG in SODIUM CHLORIDE 100 ML IVPB SCH (18:00)
[2018-12-14] MEDS ORDERED: dilTIAZem HCL 50 MG/10 ML - 10 ML VIAL IVPUSH PRN (19:52)
[2018-12-14] MEDS ORDERED: ONDANSETRON 4 MG/2 ML VIAL IVPUSH PRN (19:52)
[2018-12-14] MEDS ORDERED: METOPROLOL TARTRATE 5 MG/5 ML VIAL IVPUSH PRN (19:52)
[2018-12-15] MEDS: morphine SULFATE 4 MG/ML VIAL IVPUSH PRN ×2 (05:27→21:37)
[2018-12-15] MEDS: DILTIAZEM INJECTION 125 MG in SODIUM CHLORIDE 100 ML IVPB SCH ×2 (05:28→11:36)
[2018-12-15] MEDS: HEPARIN NA (PORCINE) 5,000 UNITS/ML 1ML VIAL SQ SCH ×3 (05:37→21:35)
[2018-12-15 06:09] LABS: HEMATOCRIT 29.5 % (32.4-45.2); HEMOGLOBIN 9.9 GM/dL (10.7-15.3); MCHC 33.4 g/dl (32.0-36.0); MEAN CELL VOLUME 80.8 fl (80-96); MEAN PLT VOLUME 7.5 fl (7.5-11.1); PLATELET COUNT 365 K/MM3 (134-434); RBC 3.65 M/mm3 (3.60-5.2); RDW 20.3 % (11.6-15.6)
[2018-12-15] MEDS: INSULIN SLIDING SCALE (NOVOLOG) 1 VIAL SQ SCH ×4 (06:10→23:25)
[2018-12-15 06:30] LABS: ANION GAP 8 MMOL/L (8-16); BLOOD UREA NITROGEN 34 mg/dL (7-18); CALCIUM 8.4 mg/dL (8.5-10.1); CHLORIDE 101 mmol/L (98-107); CO2 27 mmol/L (21-32); CREATININE 1.4 mg/dL (0.55-1.3); MAGNESIUM 2.1 mg/dL (1.8-2.4); POTASSIUM 3.6 mmol/L (3.5-5.1); SODIUM 136 mmol/L (136-145)
[2018-12-15 06:34] LABS: GLUCOSE,RANDOM 304 mg/dL (74-106)
[2018-12-15] MEDS ORDERED: INSULIN (LEVEMIR) 100 UNITS/ML UNITS SQ SCH (07:00)
--- NOTE | 2018-12-15 07:42 | PN ---
Progress Note (short form) - Note Progress Note: Pulm/CCM Seen and examined in ICU 24Hr; -HR remains elevated on cardizem gtt at 15, remains NPO -per Cards report this has occurred everytime has come off oral agents -Cr rising, made 600 UOP Active Medications Acetaminophen (Ofirmev Injection -) 1,000 mg IVPB Q6H PRN PRN Reason: Pain Level 4-10 Last Admin: 12/14/18 22:38 Dose: 1,000 mg Chlorhexidine Gluconate (Hibiclens For Decolonization -) 1 applic TP HS [facility] Last Admin: 12/14/18 21:11 Dose: 1 applic Clonidine HCl (Catapres Tts Patch -) 0.2 mg TD Q7D@1000 [facility] Diltiazem HCl (Cardizem Injection -) 10 mg IVPUSH Q4H PRN PRN Reason: TACHYCARDIA Diphenhydramine HCl (Benadryl Injection -) 25 mg IVPB Q6H PRN PRN Reason: ITCHING Heparin Sodium (Porcine) (Heparin -) 5,000 unit SQ TID [facility] Last Admin: 12/15/18 05:37 Dose: 5,000 unit Potassium Phosphate 15 mm/Calcium Gluconate 1,000 mg/Magnesium Sulfate 2 gm/ Folic Acid 1 mg/ Multivitamins/Minerals 10 ml/ Potassium Chloride 40 meq/ Sterile Water / Amino Acids/ Dextrose 1,500 mls @ 62.5 mls/hr IVPB DAILY@1600 [facility] Last Admin: 12/14/18 15:58 Dose: 62.5 mls/hr Fat Emulsion Intravenous (Intralipid -) 250 mls @ 20.833 mls/hr IV DAILY@2200 [facility] Last Admin: 12/14/18 22:33 Dose: 20.833 mls/hr Diltiazem HCl 125 mg/ Sodium (Chloride) 125 mls @ 5 mls/hr IVPB TITR [facility]; Protocol Last Admin: 12/15/18 05:28 Dose: 10 mg/hr, 10 mls/hr Insulin Aspart (Novolog Vial Sliding Scale -) 1 vial SQ ACHS [facility]; Protocol Last Admin: 12/15/18 06:10 Dose: 8 units Insulin Detemir (Levemir Vial) 20 units SQ AM [facility] Last Admin: 12/15/18 06:11 Dose: 20 units Metoprolol Tartrate (Lopressor Injection -) 5 mg IVPUSH Q4H PRN PRN Reason: HYPERTENSION Morphine Sulfate (Morphine Sulfate) 4 mg IVPUSH Q4H PRN PRN Reason: Pain Level 8 - 10 BREAKTHROUGH Last Admin: 12/15/18 05:27 Dose: 4 mg Morphine Sulfate (Morphine Sulfate) 2 mg IVPUSH Q4H PRN PRN Reason: Pain Level 6 - 8 BREAKTHROUGH Mupirocin (Bactroban Ointment (For Decolonization) -) 1 applic NS BID [facility] Stop: 12/18/18 21:59 Last Admin: 12/14/18 21:10 Dose: 1 applic Ondansetron HCl (Zofran Injection) 4 mg IVPUSH Q4H PRN PRN Reason: NAUSEA AND/OR VOMITING Vital Signs Temp 99 F 12/14/18 17:19 Pulse 123 H 12/15/18 05:28 Resp 18 12/15/18 03:00 BP 132/67 12/15/18 05:28 Pulse Ox 96 12/14/18 20:46 Intake & Output 12/14/18 12/14/18 12/15/18 11:59 23:59 11:59 Intake Total 60 1177.5 840 Output Total 600 Balance 60 1177.5 240 Intake: IV 60 140 70 Cardizem Injection - 125 60 140 70 mg In Normal Saline - 100 ml @ 5 MG/HR 5 mls/hr IVPB TITR [facility] Rx#: [id number] IVPB 400 100 TPN/PPN 637.5 420 Lipid 250 Output: Urine 600 Void 600 Other: Voiding Method Bedpan Bedside Commode # Unmeasured Voids Void 2 Bowel Movement No Yes: with SSE No # Bowel Movements 1 PE: Gen: awake,alert without distress HEENT: EOMI, NCAT PULM: diminished bases, no wheezes, no distress CV: tachy, irreg, unable to apprec m/r/g ABD: soft, Non tender, wound vac in place , hypoactive BS EXT: dependent edema Neuro: non focal A/ 72 year old woman PMH DM2, HTN, CKD, nephrolithiasis s/p L ureteral stent, prolonged hospital course after SBO now with Afib RVR with chest tightness now resolved P/ -rate control with cardizem gtt, cardiology following, will need transition to long acting -holding eliquis for now, if h/H stable and no planned surgical intervention can restart -htn management with clonidine, CCB, BB -glycemic control, marjan needs insulin increase or added to TPN -OOB -wound care as per Dr Rodney, planning for D/c to LTAC Dispo: ok for Tele once better rate control [place] ACNP
--- NOTE | 2018-12-15 09:36 | PN ---
Progress Note (short form) - Note Progress Note: s: no cp sob palps dizzy o: Vital Signs Period Temp Pulse Resp BP Sys/Pascual Pulse Ox Last 24 Hr 98.8 F-99 F 73-135 18-21 132-163/67-115 96-96 Constitutional: Yes: Well Nourished, No Distress, Calm Eyes: Yes: Conjunctiva Clear Respiratory: Yes: Regular, CTA Bilaterally Gastrointestinal: Yes: Tenderness Cardiovascular: Yes: irreg JVD: No Heart Sounds: Yes: S1, S2 Murmur: No: Systolic Murmur Extremities: No: Cold Edema: No Peripheral Pulses: 2+ Left Doralis Pedis, 2+ Right Dorsalis Pedis Integumentary: No: Jaundice Neurological: Yes: Alert, Oriented Psychiatric: No: Agitated Current Medications Acetaminophen (Ofirmev Injection -) 1,000 mg IVPB Q6H PRN PRN Reason: Pain Level 4-10 Last Admin: 12/14/18 22:38 Dose: 1,000 mg Chlorhexidine Gluconate (Hibiclens For Decolonization -) 1 applic TP HS [facility] Last Admin: 12/14/18 21:11 Dose: 1 applic Clonidine HCl (Catapres Tts Patch -) 0.2 mg TD Q7D@1000 [facility] Digoxin (Lanoxin Injection -) 0.25 mg IVPUSH Q6H [facility] Stop: 12/16/18 04:01 Diltiazem HCl (Cardizem Injection -) 10 mg IVPUSH Q4H PRN PRN Reason: TACHYCARDIA Diphenhydramine HCl (Benadryl Injection -) 25 mg IVPB Q6H PRN PRN Reason: ITCHING Heparin Sodium (Porcine) (Heparin -) 5,000 unit SQ TID [facility] Last Admin: 12/15/18 05:37 Dose: 5,000 unit Potassium Phosphate 15 mm/Calcium Gluconate 1,000 mg/Magnesium Sulfate 2 gm/ Folic Acid 1 mg/ Multivitamins/Minerals 10 ml/ Potassium Chloride 40 meq/ Sterile Water / Amino Acids/ Dextrose 1,500 mls @ 62.5 mls/hr IVPB DAILY@1600 [facility] Last Admin: 12/14/18 15:58 Dose: 62.5 mls/hr Fat Emulsion Intravenous (Intralipid -) 250 mls @ 20.833 mls/hr IV DAILY@2200 [facility] Last Admin: 12/14/18 22:33 Dose: 20.833 mls/hr Diltiazem HCl 125 mg/ Sodium (Chloride) 125 mls @ 5 mls/hr IVPB TITR [facility]; Protocol Last Admin: 12/15/18 05:28 Dose: 10 mg/hr, 10 mls/hr Insulin Aspart (Novolog Vial Sliding Scale -) 1 vial SQ ACHS [facility]; Protocol Last Admin: 12/15/18 06:10 Dose: 8 units Insulin Detemir (Levemir Vial) 20 units SQ AM [facility] Last Admin: 12/15/18 06:11 Dose: 20 units Metoprolol Tartrate (Lopressor Injection -) 5 mg IVPUSH Q4H PRN PRN Reason: HYPERTENSION Morphine Sulfate (Morphine Sulfate) 4 mg IVPUSH Q4H PRN PRN Reason: Pain Level 8 - 10 BREAKTHROUGH Last Admin: 12/15/18 05:27 Dose: 4 mg Morphine Sulfate (Morphine Sulfate) 2 mg IVPUSH Q4H PRN PRN Reason: Pain Level 6 - 8 BREAKTHROUGH Mupirocin (Bactroban Ointment (For Decolonization) -) 1 applic NS BID [facility] Stop: 12/18/18 21:59 Last Admin: 12/14/18 21:10 Dose: 1 applic Ondansetron HCl (Zofran Injection) 4 mg IVPUSH Q4H PRN PRN Reason: NAUSEA AND/OR VOMITING Assessment/Plan EKG: initial sinus, LVH, first deg AVB EKG 11/22 afib with RVR rate 135 bpm echo 11/2016 LV mildly dilated, nl LV function, sigmoid septum, RV nl, LA severely dilated, RA mildly enlarged, mild MR, mild TR, at least mild pulm HTN, RVSP at least 42 mmHg CTA chest 12/13 no PE, increase in size of R pleural effusion (small) and stable L pleural effusion tele: sinus tachy and afib with occasional RVR 160s, generally 100s-110s afib - in post op setting after ex lap, PAN. - 11/25: converted spontaneously now to sinus - 11/26: overnight converted back to afib with RVR, dilt gtt was started, initially poor IV access now has been running, no improvement with additional lopressor 5 mg IV this morning. replete K and Mg, digoxin 0.125 mg IV x 1 ordered, cont dilt gtt - 11/27: started diltiazem 60 mg PO Q6H, increase to 90 mg Q6H, start propranolol 20 mg Q6H, uptitrate as tolerated, wean dilt gtt as tolerated -11/28-: rate controlled on po meds. eliquis started. -12/02-: sinus. continue diltiazem CD 360 mg daily, propranolol LA 60 mg daily. -12/07: soft BPs, hgb trending down. surgery f/u. hold eliquis until anemia stabilizes. -12/08: Hgb 7.8, agree with holding DOAC until hgb more stable - 12/09-: holding eliquis continue short acting diltiazem po, hr stable. long acting dilt and inderal on hold due to NPO. - 12/13-: monitoring in ICU for afib with RVR, dilt gtt and PRN lopressor. replete lytes for K >4.0 and Mg >2.0 - 12/15: occasionally in sinus, rate ok in afib with occasional rvr. continue dilt gtt. would hold on digoxin as Cr rising, d/w renal. SBO s/p ex lap, PAN -surgery following, npo now -holding eliquis for now - if remains NPO would consider heparin gtt vs lovenox when clear per surgery HTN -chronically suboptimal BP control at home -has been on mult meds including clonidine at home -lisinopril, chlorthalidone held here in setting of CHACHA, clonidine continued -hi dose diltiazem plus low dose propranolol started here to control rapid AF - transitioned to clonidine patch while NPO pulm HTN, chronic diastolic HF - mild to mod, likely 2/2 diastolic CHF - appears euvolemic DM - manage per primary HLD - continue statin
--- NOTE | 2018-12-15 09:47 | PN ---
Progress Note, Physician Chief Complaint: AWAKE ALERT FEELING BETTER DENIES CHEST PAIN OR SOB NO FEVERS OR CHILLS - Current Medication List Current Medications: Active Medications Acetaminophen (Ofirmev Injection -) 1,000 mg IVPB Q6H PRN PRN Reason: Pain Level 4-10 Last Admin: 12/14/18 22:38 Dose: 1,000 mg Chlorhexidine Gluconate (Hibiclens For Decolonization -) 1 applic TP HS [facility] Last Admin: 12/14/18 21:11 Dose: 1 applic Clonidine HCl (Catapres Tts Patch -) 0.2 mg TD Q7D@1000 [facility] Diltiazem HCl (Cardizem Injection -) 10 mg IVPUSH Q4H PRN PRN Reason: TACHYCARDIA Diphenhydramine HCl (Benadryl Injection -) 25 mg IVPB Q6H PRN PRN Reason: ITCHING Heparin Sodium (Porcine) (Heparin -) 5,000 unit SQ TID [facility] Last Admin: 12/15/18 05:37 Dose: 5,000 unit Potassium Phosphate 15 mm/Calcium Gluconate 1,000 mg/Magnesium Sulfate 2 gm/ Folic Acid 1 mg/ Multivitamins/Minerals 10 ml/ Potassium Chloride 40 meq/ Sterile Water / Amino Acids/ Dextrose 1,500 mls @ 62.5 mls/hr IVPB DAILY@1600 [facility] Last Admin: 12/14/18 15:58 Dose: 62.5 mls/hr Fat Emulsion Intravenous (Intralipid -) 250 mls @ 20.833 mls/hr IV DAILY@2200 [facility] Last Admin: 12/14/18 22:33 Dose: 20.833 mls/hr Diltiazem HCl 125 mg/ Sodium (Chloride) 125 mls @ 5 mls/hr IVPB TITR [facility]; Protocol Last Admin: 12/15/18 05:28 Dose: 10 mg/hr, 10 mls/hr Insulin Aspart (Novolog Vial Sliding Scale -) 1 vial SQ ACHS [facility]; Protocol Last Admin: 12/15/18 06:10 Dose: 8 units Insulin Detemir (Levemir Vial) 20 units SQ AM [facility] Last Admin: 12/15/18 06:11 Dose: 20 units Metoprolol Tartrate (Lopressor Injection -) 5 mg IVPUSH Q4H PRN PRN Reason: HYPERTENSION Morphine Sulfate (Morphine Sulfate) 4 mg IVPUSH Q4H PRN PRN Reason: Pain Level 8 - 10 BREAKTHROUGH Last Admin: 12/15/18 05:27 Dose: 4 mg Morphine Sulfate (Morphine Sulfate) 2 mg IVPUSH Q4H PRN PRN Reason: Pain Level 6 - 8 BREAKTHROUGH Mupirocin (Bactroban Ointment (For Decolonization) -) 1 applic NS BID [facility] Stop: 12/18/18 21:59 Last Admin: 12/14/18 21:10 Dose: 1 applic Ondansetron HCl (Zofran Injection) 4 mg IVPUSH Q4H PRN PRN Reason: NAUSEA AND/OR VOMITING - Objective Vital Signs: Vital Signs Temperature 99 F 12/14/18 17:19 Pulse Rate 122 H 12/15/18 08:00 Respiratory Rate 19 12/15/18 08:35 Blood Pressure 135/99 12/15/18 08:00 O2 Sat by Pulse Oximetry (%) 96 12/15/18 08:35 Constitutional: Yes: Mild Distress Eyes: Yes: WNL HENT: Yes: WNL Neck: Yes: WNL Cardiovascular: Yes: Tachycardia, Pulse Irregular Respiratory: Yes: On Nasal O2 Gastrointestinal: Yes: Other (DRESSING CLEAN NO DISCHARGE) Genitourinary: Yes: WNL Musculoskeletal: Yes: Muscle Weakness Extremities: Yes: WNL Edema: No Peripheral Pulses WNL: Yes Integumentary: Yes: Other Wound/Incision: Yes: Dressing Dry and Intact Neurological: Yes: WNL ...Motor Strength: WNL Psychiatric: Yes: WNL Labs: CBC, BMP 12/15/18 05:30 12/15/18 05:30 INR, PTT INR 1.19 (0.82-1.09) 11/16/18 14:35 Problem List - Problems (1) Abdominal pain Code(s): R10.9 - UNSPECIFIED ABDOMINAL PAIN Qualifiers: Abdominal location: unspecified location Qualified Code(s): R10.9 - Unspecified abdominal pain (2) Atrial fibrillation with RVR Code(s): I48.91 - UNSPECIFIED ATRIAL FIBRILLATION (3) CKD (chronic kidney disease) stage 3, GFR 30-59 ml/min Code(s): N18.3 - CHRONIC KIDNEY DISEASE, STAGE 3 (MODERATE) (4) Diabetes mellitus type 2 in obese Code(s): E11.69 - TYPE 2 DIABETES MELLITUS WITH OTHER SPECIFIED COMPLICATION; E66.9 - OBESITY, UNSPECIFIED (5) Small bowel obstruction Code(s): K56.609 - UNSP INTESTNL OBST, UNSP TO PARTIAL VERSUS COMPLETE OBST Assessment/Plan TACHYCARDI WITH AFIB OVERNIGHT TIL AM ADDING DIGOXIN IV 0.25 Q6HRS CARDIO F/U ABDOMINAL WOUND FOUL SMELLING CHANGED DRESSING, PAIN MEDS IV ABX SURGERY F/U APPRECIATED WILL CALL BACK R/O FISTULA INCENTIVE SPIROMETRY DVT PROPHYLAXIS ICU CARE APPRECIATED
[2018-12-15] MEDS ORDERED: DIGOXIN 0.5 MG/2 ML AMPUL IVPUSH SCH (10:00)
[2018-12-15] MEDS: MUPIROCIN 2% TOPICAL OINTMENT FOR DECOLONIZATION NS SCH ×2 (10:07→21:36)
--- NOTE | 2018-12-15 10:17 | PN ---
Progress Note (short form) - Note Progress Note: Renal follow up for CHACHA Pt seen and examined in the ICU awake and alert complains of mild abd discomfort no sob, cp, N/V, fever or chills making urine on TPN Vital Signs Temperature 99 F 12/14/18 17:19 Pulse Rate 122 H 12/15/18 08:00 Respiratory Rate 12/15/18 08:35 Blood Pressure 135/99 12/15/18 08:00 O2 Sat by Pulse Oximetry (%) 96 12/15/18 08:35 Intake & Output 12/12/18 12/13/18 12/14/18 12/15/18 23:59 23:59 23:59 23:59 Intake Total 0185 431 9982.5 840 Output Total 925 2200 600 Balance 903 -1446 1237.5 240 NAD tachycardic Dec BS slight abd tenderness no edema CBC, BMP 12/15/18 05:30 12/15/18 05:30 Current Medications Acetaminophen (Ofirmev Injection -) 1,000 mg IVPB Q6H PRN PRN Reason: Pain Level 4-10 Last Admin: 12/14/18 22:38 Dose: 1,000 mg Chlorhexidine Gluconate (Hibiclens For Decolonization -) 1 applic TP HS [facility] Last Admin: 12/14/18 21:11 Dose: 1 applic Clonidine HCl (Catapres Tts Patch -) 0.2 mg TD Q7D@1000 [facility] Digoxin (Lanoxin Injection -) 0.25 mg IVPUSH Q6H [facility] Stop: 12/16/18 04:01 Diltiazem HCl (Cardizem Injection -) 10 mg IVPUSH Q4H PRN PRN Reason: TACHYCARDIA Diphenhydramine HCl (Benadryl Injection -) 25 mg IVPB Q6H PRN PRN Reason: ITCHING Heparin Sodium (Porcine) (Heparin -) 5,000 unit SQ TID [facility] Last Admin: 12/15/18 05:37 Dose: 5,000 unit Potassium Phosphate 15 mm/Calcium Gluconate 1,000 mg/Magnesium Sulfate 2 gm/ Folic Acid 1 mg/ Multivitamins/Minerals 10 ml/ Potassium Chloride 40 meq/ Sterile Water / Amino Acids/ Dextrose 1,500 mls @ 62.5 mls/hr IVPB DAILY@1600 [facility] Last Admin: 12/14/18 15:58 Dose: 62.5 mls/hr Fat Emulsion Intravenous (Intralipid -) 250 mls @ 20.833 mls/hr IV DAILY@2200 [facility] Last Admin: 12/14/18 22:33 Dose: 20.833 mls/hr Diltiazem HCl 125 mg/ Sodium (Chloride) 125 mls @ 5 mls/hr IVPB TITR [facility]; Protocol Last Admin: 12/15/18 05:28 Dose: 10 mg/hr, 10 mls/hr Insulin Aspart (Novolog Vial Sliding Scale -) 1 vial SQ ACHS [facility]; Protocol Last Admin: 12/15/18 06:10 Dose: 8 units Insulin Detemir (Levemir Vial) 20 units SQ AM [facility] Last Admin: 12/15/18 06:11 Dose: 20 units Metoprolol Tartrate (Lopressor Injection -) 5 mg IVPUSH Q4H PRN PRN Reason: HYPERTENSION Morphine Sulfate (Morphine Sulfate) 4 mg IVPUSH Q4H PRN PRN Reason: Pain Level 8 - 10 BREAKTHROUGH Last Admin: 12/15/18 05:27 Dose: 4 mg Morphine Sulfate (Morphine Sulfate) 2 mg IVPUSH Q4H PRN PRN Reason: Pain Level 6 - 8 BREAKTHROUGH Mupirocin (Bactroban Ointment (For Decolonization) -) 1 applic NS BID [facility] Stop: 12/18/18 21:59 Last Admin: 12/14/18 21:10 Dose: 1 applic Ondansetron HCl (Zofran Injection) 4 mg IVPUSH Q4H PRN PRN Reason: NAUSEA AND/OR VOMITING 72 year old woman with hx of CKD, Nephrolithiasis, DM who presented with Abd pain secondary to SBO s/p surgical intervention with CHACHA. #Recurrent CHACHA #SBO s/p OR #enterocutaneous fistula #Prolonged NPO #Hypoalbuminema #Abd wound infection #LE edema #Chest Pain/Tightness Cr areli to 1.4, likely related to renal hypoprofusion in setting of rapid afib vs contrast nephropathy vs. ACEi. Would continue to monitor for now. on IV cardizem as per cardiology CTA of the chest showed no PE Continue clonidine patch holding IV enalapril for now Goal BP for now < 150/90 Will continue TPN as patient remains NPO, increase volume to 1.5L today Will add insulin to TPN, monitor blood glucose Q4h Thank you Ethan Ram DO
--- NOTE | 2018-12-15 12:17 | PN ---
Progress Note, Physician History of Present Illness: POD25 s/p extensive lysis of intestinal adhesions for developing SBO, with suture repair of small RUQ incisional hernia from inside, with findings of previous intestinal reconstruction/hepaticojejunostomy, done years ago after post-cholecystectomy complications per pt. Also with likely PTFE mesh in situ from subsequent incarcerated umbilical hernia repair, was split in upper aspect for laparotomy. Pt postop had new onset of afib with RVR and was transferred to telemetry, rate had been controlled on po meds. She was briefly on Eliquis, now on hold. Postop, she tolerated soft diabetic diet, though with marginal po intake. Abd pain at times, managing with tylenol, narcotics as breakthrough. Lower pole of abdominal incision was opened when abhay were removed for spontaneous drainage, and packed. Then there was more yellow drainage than previously, with a concern of possible sb fistula. CT with po contrast showed no contrast leakage above the fascia or out of the bowel. The rest of the incision was reopened, cultured, and packed, then VAC was placed with white foam at base over fascia. She is now complete NPO with TPN and IV meds only, via PICC. Has been ambulating, voiding, with bowel function, had large BM yesterday after enema. Had CTA chest couple days ago with no evidence of PE, very small pleural effusion. Was then transferred to ICU back in afib with RVR for cardizem drip. Seen and examined in bed. VAC was changed yesterday, intact with almost 200ml syed/brown fluid in canister. Renal is managing TPN. K+ 3.6, coming up. She was up in chair yesterday, and plans to get up again later today. Would like to walk, but more difficult in ICU without walker. States pain managed with prn meds. - Current Medication List Current Medications: Active Medications Acetaminophen (Ofirmev Injection -) 1,000 mg IVPB Q6H PRN PRN Reason: Pain Level 4-10 Last Admin: 12/14/18 22:38 Dose: 1,000 mg Chlorhexidine Gluconate (Hibiclens For Decolonization -) 1 applic TP HS [facility] Last Admin: 12/14/18 21:11 Dose: 1 applic Clonidine HCl (Catapres Tts Patch -) 0.2 mg TD Q7D@1000 [facility] Diltiazem HCl (Cardizem Injection -) 10 mg IVPUSH Q4H PRN PRN Reason: TACHYCARDIA Diphenhydramine HCl (Benadryl Injection -) 25 mg IVPB Q6H PRN PRN Reason: ITCHING Heparin Sodium (Porcine) (Heparin -) 5,000 unit SQ TID [facility] Last Admin: 12/15/18 05:37 Dose: 5,000 unit Potassium Phosphate 15 mm/Calcium Gluconate 1,000 mg/Magnesium Sulfate 2 gm/ Folic Acid 1 mg/ Multivitamins/Minerals 10 ml/ Potassium Chloride 40 meq/ Sterile Water / Amino Acids/ Dextrose 1,500 mls @ 62.5 mls/hr IVPB DAILY@1600 [facility] Stop: 12/15/18 15:59 Last Admin: 12/14/18 15:58 Dose: 62.5 mls/hr Fat Emulsion Intravenous (Intralipid -) 250 mls @ 20.833 mls/hr IV DAILY@2200 [facility] Last Admin: 12/14/18 22:33 Dose: 20.833 mls/hr Diltiazem HCl 125 mg/ Sodium (Chloride) 125 mls @ 5 mls/hr IVPB TITR [facility]; Protocol Last Admin: 12/15/18 05:28 Dose: 10 mg/hr, 10 mls/hr Potassium Phosphate 15 mm/Calcium Gluconate 1,000 mg/Magnesium Sulfate 2 gm/ Folic Acid 1 mg/ Multivitamins/Minerals 10 ml/ Potassium Chloride 40 meq/ Insulin Human Regular 26 units/ Sterile Water/ Amino Acids/ Dextrose 1,500 mls @ 62.5 mls/hr IVPB DAILY@1600 [facility] Insulin Aspart (Novolog Vial Sliding Scale -) 1 vial SQ ACHS [facility]; Protocol Last Admin: 12/15/18 06:10 Dose: 8 units Metoprolol Tartrate (Lopressor Injection -) 5 mg IVPUSH Q4H PRN PRN Reason: HYPERTENSION Morphine Sulfate (Morphine Sulfate) 4 mg IVPUSH Q4H PRN PRN Reason: Pain Level 8 - 10 BREAKTHROUGH Last Admin: 12/15/18 05:27 Dose: 4 mg Morphine Sulfate (Morphine Sulfate) 2 mg IVPUSH Q4H PRN PRN Reason: Pain Level 6 - 8 BREAKTHROUGH Mupirocin (Bactroban Ointment (For Decolonization) -) 1 applic NS BID [facility] Stop: 12/18/18 21:59 Last Admin: 12/14/18 21:10 Dose: 1 applic Ondansetron HCl (Zofran Injection) 4 mg IVPUSH Q4H PRN PRN Reason: NAUSEA AND/OR VOMITING - Objective Vital Signs: Vital Signs Temperature 99 F 12/14/18 17:19 Pulse Rate 122 H 12/15/18 08:00 Respiratory Rate 19 12/15/18 08:35 Blood Pressure 135/99 12/15/18 08:00 O2 Sat by Pulse Oximetry (%) 96 12/15/18 08:35 Vital Signs Period Temp Pulse Resp BP Sys/Pascual Pulse Ox Last 24 Hr 98.9 F-99 F 73-133 18-21 132-163/67-106 96-96 Intake & Output 12/14/18 12/15/18 12/15/18 23:59 07:59 15:59 Intake Total 1177.5 840 Output Total 600 Balance 1177.5 240 Intake: IV 140 70 Cardizem Injection - 125 140 70 mg In Normal Saline - 100 ml @ 5 MG/HR 5 mls/hr IVPB TITR [facility] Rx#: [id number] IVPB 400 100 TPN/PPN 637.5 420 Lipid 250 Output: Urine 600 Void 600 Other: Voiding Method Bedside Commode Bedside Commode # Unmeasured Voids Void 2 Bowel Movement Yes: with SSE No # Bowel Movements 1 Constitutional: Yes: No Distress, Calm, Obese Eyes: Yes: Conjunctiva Clear, EOM Intact HENT: Yes: Atraumatic, Normocephalic Gastrointestinal: Yes: Soft, Abdomen, Obese, Tenderness (mild RUQ, lateral over old scar, and incisional). No: Distention Extremities: No: Cool, Cyanosis Integumentary: Yes: Incision (midline w/VAC). No: Jaundice, Rash Wound/Incision: Yes: Dressing Dry and Intact (VAC intact at -125mm continuous pressure), Draining (brown/syed fluid in canister). No: Dressing Removed Neurological: Yes: Alert, Oriented Labs: CBC, BMP 12/15/18 05:30 12/15/18 05:30 BUN/Cr up K up to 3.6 Hb up sugars a bit high Problem List - Problems (1) Intestinal adhesions with partial obstruction Assessment/Plan: POD25 s/p extensive lysis of adhesions and RUQ incisional hernia repair s/p hepaticojejunostomy in past with intestinal reconstruction - with dilated/ stagnant loop of anastomotic area had small enterotomy with small yellow fluid leakage repaired in proximal SB ( hepatic limb?) up under RUQ scar, near incisional hernia, minimal contamination POD8 s/p complex I&D of postop wound infection enterocutaneous fistula present under midportion of midline wound VAC in place, changed yesterday, intact with good seal COMPLETE NPO with TPN, IV meds only via PICC line from IR pain meds prn - tylenol first line, morphine as needed breakthrough trend labs, monitor lytes, glucose TPN per renal discussed with Debby Diamond Code(s): K56.51 - INTESTINAL ADHESIONS [BANDS], WITH PARTIAL OBSTRUCTION (2) Infection following a procedure, superficial incisional surgical site, initial encounter Assessment/Plan: culture grew mostly sensitive E. coli, E. faecalis, yeast-like organism would not use antibiotics at this time Code(s): T81.41XA - INFCT FOL A PROC, SUPERFIC INCISIONAL SURGICAL SITE, INIT (3) Enterocutaneous fistula Assessment/Plan: in context of PTFE mesh in situ in field/wound and underlying abnormal intestinal anatomy discussed with Dr. Calzada at [place] he is ok with transfer to [facility] for complex wound care ([facility] VAC with white foam/ black foam), TPN and telemetry needs he would then see her as outpatient in his office from [facility] at 6 wks postop to decide when to have her transferred to [place] for intervention will continue to discuss with Sunday Code(s): K63.2 - FISTULA OF INTESTINE (4) Persistent postprocedural fistula, initial encounter Assessment/Plan: enteric content in wound consistent with fistula continue VAC - white foam in wound base, black over plan is transfer to [facility] for ongoing care, until it is time for evaluation by Dr. Rafael Calzada from [place] (6 wks postop) VAC changes about 3x weekly TPN/complete NPO might be [facility] two to see if fistula output increases Code(s): T81.83XA - PERSISTENT POSTPROCEDURAL FISTULA, INITIAL ENCOUNTER (5) Incisional hernia, without obstruction or gangrene Code(s): K43.2 - INCISIONAL HERNIA WITHOUT OBSTRUCTION OR GANGRENE (6) Atrial fibrillation with RVR Assessment/Plan: keep mark repleted Titais on hold for now converted back to ALL IV meds, completely NPO cardiology following in ICU for cardizem drip and rate control This patient is critically ill. Time spent reviewing chart, examining patient, talking with providers and/or family and documentation is 35 minutes. Code(s): I48.91 - UNSPECIFIED ATRIAL FIBRILLATION (7) Hypertension Assessment/Plan: cardio managing, meds back to IV with clonidine patch Code(s): I10 - ESSENTIAL (PRIMARY) HYPERTENSION Qualifiers: Hypertension type: essential hypertension Qualified Code(s): I10 - Essential (primary) hypertension (8) Diabetes mellitus type 2 in obese Assessment/Plan: endo following glucose management along with TPN - insulin added to TPN Code(s): E11.69 - TYPE 2 DIABETES MELLITUS WITH OTHER SPECIFIED COMPLICATION; E66.9 - OBESITY, UNSPECIFIED (9) S/P ureteral stent placement Assessment/Plan: urology had seen left ureteral stent in place; management per uro - pt may need laser lithotripsy with stent removal?, off anticoagulation mild increase in left hydronephrosis on last CT Code(s): Z96.0 - PRESENCE OF UROGENITAL IMPLANTS (10) Gout Assessment/Plan: home med on hold Code(s): M10.9 - GOUT, UNSPECIFIED Qualifiers: Gout site: toe Gout etiology: unspecified cause Chronicity: unspecified Laterality: unspecified laterality Qualified Code(s): M10.9 - Gout, unspecified (11) CKD (chronic kidney disease) stage 3, GFR 30-59 ml/min Assessment/Plan: nephrology following and managing TPN trend labs daily Code(s): N18.3 - CHRONIC KIDNEY DISEASE, STAGE 3 (MODERATE)
[2018-12-15] MEDS ORDERED: INSULIN (NOVOLOG) ASPART 100 UNITS/ML 10ML VIAL ONE (12:35)
[2018-12-15] MEDS ORDERED: MAGNESIUM SULFATE IVPB SCH (16:00)
[2018-12-15] MEDS ORDERED: [UNRECOGNIZED DRUG - OTHER] IVPB SCH (16:00)
[2018-12-15] MEDS ORDERED: POTASSIUM PHOSPHATE IVPB SCH (16:00)
[2018-12-15] MEDS ORDERED: CALCIUM GLUCONATE IVPB SCH (16:00)
[2018-12-15] MEDS ORDERED: PT OWN MED DRAWER 7, Y5N ONE (16:31)
[2018-12-15] MEDS: CHLORHEXIDINE GLUCONATE 4% CLEANSER FOR DECOLONIZATION TP SCH (21:34)
[2018-12-15] MEDS: FAT EMULSIONS 250 ML IV SCH (21:36)
[2018-12-16] MEDS: morphine SULFATE 4 MG/ML VIAL IVPUSH PRN ×4 (00:41→21:51)
[2018-12-16 06:20] LABS: HEMATOCRIT 25.7 % (32.4-45.2); HEMOGLOBIN 8.9 GM/dL (10.7-15.3); MCH 27.9 pg (25.7-33.7); MCHC 34.4 g/dl (32.0-36.0); MEAN CELL VOLUME 80.9 fl (80-96); MEAN PLT VOLUME 7.7 fl (7.5-11.1); PLATELET COUNT 308 K/MM3 (134-434); RBC 3.18 M/mm3 (3.60-5.2); RDW 20.6 % (11.6-15.6); WHITE BLOOD COUNT 5.6 K/mm3 (4.0-10.0)
[2018-12-16] MEDS: DILTIAZEM INJECTION 125 MG in SODIUM CHLORIDE 100 ML IVPB SCH ×2 (06:43→14:40)
[2018-12-16] MEDS: HEPARIN NA (PORCINE) 5,000 UNITS/ML 1ML VIAL SQ SCH ×2 (06:44→13:47)
[2018-12-16] MEDS: INSULIN SLIDING SCALE (NOVOLOG) 1 VIAL SQ SCH ×3 (06:45→18:01)
[2018-12-16 06:49] LABS: ANION GAP 7 MMOL/L (8-16); BLOOD UREA NITROGEN 38 mg/dL (7-18); CHLORIDE 104 mmol/L (98-107); CO2 27 mmol/L (21-32); CREATININE 1.3 mg/dL (0.55-1.3); GLUCOSE,RANDOM 207 mg/dL (74-106); MAGNESIUM 2.3 mg/dL (1.8-2.4); PHOSPHOROUS 3.4 mg/dL (2.5-4.9); POTASSIUM 3.9 mmol/L (3.5-5.1); SODIUM 138 mmol/L (136-145)
--- NOTE | 2018-12-16 08:59 | PN ---
Progress Note, Physician Chief Complaint: much more comfortable than Sunday Denies CP or SOB TELE: AF, occasional rates in 160s On cardizem gtts as NPO History of Present Illness: Remains NPO CTA was negative for PE - Current Medication List Current Medications: Active Medications Acetaminophen (Ofirmev Injection -) 1,000 mg IVPB Q6H PRN PRN Reason: Pain Level 4-10 Last Admin: 12/14/18 22:38 Dose: 1,000 mg Chlorhexidine Gluconate (Hibiclens For Decolonization -) 1 applic TP HS [facility] Last Admin: 12/15/18 21:34 Dose: 1 applic Clonidine HCl (Catapres Tts Patch -) 0.2 mg TD Q7D@1000 [facility] Diltiazem HCl (Cardizem Injection -) 10 mg IVPUSH Q4H PRN PRN Reason: TACHYCARDIA Diphenhydramine HCl (Benadryl Injection -) 25 mg IVPB Q6H PRN PRN Reason: ITCHING Heparin Sodium (Porcine) (Heparin -) 5,000 unit SQ TID [facility] Last Admin: 12/16/18 06:44 Dose: 5,000 unit Fat Emulsion Intravenous (Intralipid -) 250 mls @ 20.833 mls/hr IV DAILY@2200 [facility] Last Admin: 12/15/18 21:36 Dose: 20.833 mls/hr Diltiazem HCl 125 mg/ Sodium (Chloride) 125 mls @ 5 mls/hr IVPB TITR [facility]; Protocol Last Admin: 12/16/18 06:43 Dose: 10 mg/hr, 10 mls/hr Potassium Phosphate 15 mm/Calcium Gluconate 1,000 mg/Magnesium Sulfate 2 gm/ Folic Acid 1 mg/ Multivitamins/Minerals 10 ml/ Potassium Chloride 40 meq/ Insulin Human Regular 26 units/ Sterile Water/ Amino Acids/ Dextrose 1,500 mls @ 62.5 mls/hr IVPB DAILY@1600 [facility] Last Admin: 12/15/18 16:34 Dose: 62.5 mls/hr Insulin Aspart (Novolog Vial Sliding Scale -) 1 vial SQ Q6H [facility]; Protocol Last Admin: 12/16/18 06:45 Dose: 6 units Metoprolol Tartrate (Lopressor Injection -) 5 mg IVPUSH Q4H PRN PRN Reason: HYPERTENSION Last Admin: 12/15/18 23:26 Dose: 5 mg Morphine Sulfate (Morphine Sulfate) 4 mg IVPUSH Q4H PRN PRN Reason: Pain Level 8 - 10 BREAKTHROUGH Last Admin: 12/16/18 00:41 Dose: 4 mg Morphine Sulfate (Morphine Sulfate) 2 mg IVPUSH Q4H PRN PRN Reason: Pain Level 6 - 8 BREAKTHROUGH Last Admin: 12/15/18 21:37 Dose: 2 mg Mupirocin (Bactroban Ointment (For Decolonization) -) 1 applic NS BID [facility] Stop: 12/18/18 21:59 Last Admin: 12/15/18 21:36 Dose: 1 applic Ondansetron HCl (Zofran Injection) 4 mg IVPUSH Q4H PRN PRN Reason: NAUSEA AND/OR VOMITING - Objective Vital Signs: Vital Signs Temperature 98.2 F 12/16/18 07:00 Pulse Rate 107 H 12/16/18 07:00 Respiratory Rate 18 12/16/18 07:44 Blood Pressure 123/82 12/16/18 07:00 O2 Sat by Pulse Oximetry (%) 97 12/16/18 07:44 Constitutional: Yes: No Distress Cardiovascular: Yes: Pulse Irregular Respiratory: Yes: CTA Bilaterally Gastrointestinal: Yes: Soft (No rebound or guarding) Edema: No Neurological: Yes: Alert, Oriented Labs: CBC, BMP 12/16/18 05:30 12/16/18 05:30 INR, PTT INR 1.19 (0.82-1.09) 11/16/18 14:35 - ....Imaging EKG: Image Reviewed Assessment/Plan 1. PAF 2. Hypertension REC: 1.Patient is currently NPO secondary to her surgical situation. Continue and titrate Cardizem gtts to heart rate < 120bpm. 2. BP overall improved on Catapress patch. 3. Eliquis on hold due to anemia and intermittent drops in H/H. Consider starting UFH gtts (short acting) when H/H stable and when deemed safe from surgical perspective. 4. For now, cont SQ Heparin for DVT prophylaxis
[2018-12-16] MEDS: MUPIROCIN 2% TOPICAL OINTMENT FOR DECOLONIZATION NS SCH ×2 (10:22→21:58)
[2018-12-16 10:49] LABS: EPI CELLS 18.4 /HPF (0-5/HPF); URINE APPEARANCE TURBID; URINE BILIRUBIN NEGATIVE (NEGATIVE); URINE CASTS 134 /lpf (0-8); URINE COLOR YELLOW; URINE GLUCOSE (UA) NEGATIVE (NEGATIVE); URINE KETONE NEGATIVE (NEGATIVE); URINE LEUK ESTERASE 3+ (NEGATIVE); URINE NITRITE NEGATIVE (NEGATIVE); URINE PROTEIN 2+ (NEGATIVE); URINE UROBILINOGEN 0.2 mg/dL (0.2-1.0); URINE WBC 2582 /hpf (0-5)
--- NOTE | 2018-12-16 11:22 | PN ---
Teaching Attending Note Name of Resident: Ronny Andersen ATTENDING PHYSICIAN STATEMENT I saw and evaluated the patient. I reviewed the resident's note and discussed the case with the resident. I agree with the resident's findings and plan as documented. SUBJECTIVE: Patient seen and examined in the ICU. Remains on Cardizem IV for rate control. No CP or SOB. Minimal abdominal discomfort. Remains NPO. Intake & Output 12/13/18 12/14/18 12/15/18 12/16/18 23:59 23:59 23:59 23:59 Intake Total 754 1237.5 2110 630 Output Total 2200 1700 800 Balance -1446 1237.5 410 -170 Last Vital Signs Temp Pulse Resp BP Pulse Ox 98.2 F 107 H 18 123/82 97 12/16/18 07:00 12/16/18 07:00 12/16/18 07:44 12/16/18 07:00 12/16/18 07:44 Active Medications Acetaminophen (Ofirmev Injection -) 1,000 mg IVPB Q6H PRN PRN Reason: Pain Level 4-10 Last Admin: 12/14/18 22:38 Dose: 1,000 mg Chlorhexidine Gluconate (Hibiclens For Decolonization -) 1 applic TP HS [facility] Last Admin: 12/15/18 21:34 Dose: 1 applic Clonidine HCl (Catapres Tts Patch -) 0.2 mg TD Q7D@1000 [facility] Diltiazem HCl (Cardizem Injection -) 10 mg IVPUSH Q4H PRN PRN Reason: TACHYCARDIA Diphenhydramine HCl (Benadryl Injection -) 25 mg IVPB Q6H PRN PRN Reason: ITCHING Heparin Sodium (Porcine) (Heparin -) 5,000 unit SQ TID [facility] Last Admin: 12/16/18 06:44 Dose: 5,000 unit Fat Emulsion Intravenous (Intralipid -) 250 mls @ 20.833 mls/hr IV DAILY@2200 [facility] Last Admin: 12/15/18 21:36 Dose: 20.833 mls/hr Diltiazem HCl 125 mg/ Sodium (Chloride) 125 mls @ 5 mls/hr IVPB TITR [facility]; Protocol Last Admin: 12/16/18 06:43 Dose: 10 mg/hr, 10 mls/hr Potassium Phosphate 15 mm/Calcium Gluconate 1,000 mg/Magnesium Sulfate 2 gm/ Folic Acid 1 mg/ Multivitamins/Minerals 10 ml/ Potassium Chloride 40 meq/ Insulin Human Regular 26 units/ Sterile Water/ Amino Acids/ Dextrose 1,500 mls @ 62.5 mls/hr IVPB DAILY@1600 [facility] Last Admin: 12/15/18 16:34 Dose: 62.5 mls/hr Insulin Aspart (Novolog Vial Sliding Scale -) 1 vial SQ Q6H [facility]; Protocol Last Admin: 12/16/18 06:45 Dose: 6 units Metoprolol Tartrate (Lopressor Injection -) 5 mg IVPUSH Q4H PRN PRN Reason: HYPERTENSION Last Admin: 12/15/18 23:26 Dose: 5 mg Morphine Sulfate (Morphine Sulfate) 4 mg IVPUSH Q4H PRN PRN Reason: Pain Level 8 - 10 BREAKTHROUGH Last Admin: 12/16/18 00:41 Dose: 4 mg Morphine Sulfate (Morphine Sulfate) 2 mg IVPUSH Q4H PRN PRN Reason: Pain Level 6 - 8 BREAKTHROUGH Last Admin: 12/15/18 21:37 Dose: 2 mg Mupirocin (Bactroban Ointment (For Decolonization) -) 1 applic NS BID [facility] Stop: 12/18/18 21:59 Last Admin: 12/16/18 10:22 Dose: 1 applic Ondansetron HCl (Zofran Injection) 4 mg IVPUSH Q4H PRN PRN Reason: NAUSEA AND/OR VOMITING Gen: awake,alert, NAD HEENT: NCAT, (-) Pallor, (-) Icterus PULM: diminished bases, no wheezes CV: Afib ABD: soft, Non tender, wound vac in place , hypoactive BS EXT: dependent edema Neuro: non focal Problem List - Problems (1) Intestinal adhesions with partial obstruction Assessment/Plan: Code(s): K56.51 - INTESTINAL ADHESIONS [BANDS], WITH PARTIAL OBSTRUCTION (2) Infection following a procedure, superficial incisional surgical site, initial encounter Assessment/Plan: Code(s): T81.41XA - INFCT FOL A PROC, SUPERFIC INCISIONAL SURGICAL SITE, INIT (3) Enterocutaneous fistula Assessment/Plan: Code(s): K63.2 - FISTULA OF INTESTINE (4) Persistent postprocedural fistula, initial encounter Assessment/Plan: Code(s): T81.83XA - PERSISTENT POSTPROCEDURAL FISTULA, INITIAL ENCOUNTER (5) Incisional hernia, without obstruction or gangrene Code(s): K43.2 - INCISIONAL HERNIA WITHOUT OBSTRUCTION OR GANGRENE (6) Atrial fibrillation with RVR Assessment/Plan: Code(s): I48.91 - UNSPECIFIED ATRIAL FIBRILLATION (7) Hypertension Assessment/Plan: Code(s): I10 - ESSENTIAL (PRIMARY) HYPERTENSION Qualifiers: Hypertension type: essential hypertension Qualified Code(s): I10 - Essential (primary) hypertension (8) Diabetes mellitus type 2 in obese Assessment/Plan: Code(s): E11.69 - TYPE 2 DIABETES MELLITUS WITH OTHER SPECIFIED COMPLICATION; E66.9 - OBESITY, UNSPECIFIED (9) S/P ureteral stent placement Assessment/Plan: Code(s): Z96.0 - PRESENCE OF UROGENITAL IMPLANTS (10) Gout Assessment/Plan: Code(s): M10.9 - GOUT, UNSPECIFIED Qualifiers: Gout site: toe Gout etiology: unspecified cause Chronicity: unspecified Laterality: unspecified laterality Qualified Code(s): M10.9 - Gout, unspecified (11) CKD (chronic kidney disease) stage 3, GFR 30-59 ml/min Assessment/Plan: Code(s): N18.3 - CHRONIC KIDNEY DISEASE, STAGE 3 (MODERATE) IMP: Rapid Afib, now rate controlled on IV Cardizem drip HTN CKD Nephrolithiasis s/p L ureteral stent TPN per Renal Incentive Spirometry O2 as needed VTE prophylaxis NPO per surgery, would check if PO rate controlling meds can be taken AC Patient is being assessed for LTAC placement Dr Saunders
--- NOTE | 2018-12-16 11:32 | PN ---
Progress Note, Physician Chief Complaint: patient in now in icu for heart rate monitoring on iv cardizem drip bgm note will start levemir - Current Medication List Current Medications: Active Medications Acetaminophen (Ofirmev Injection -) 1,000 mg IVPB Q6H PRN PRN Reason: Pain Level 4-10 Last Admin: 12/14/18 22:38 Dose: 1,000 mg Chlorhexidine Gluconate (Hibiclens For Decolonization -) 1 applic TP HS [facility] Last Admin: 12/15/18 21:34 Dose: 1 applic Clonidine HCl (Catapres Tts Patch -) 0.2 mg TD Q7D@1000 [facility] Diltiazem HCl (Cardizem Injection -) 10 mg IVPUSH Q4H PRN PRN Reason: TACHYCARDIA Diphenhydramine HCl (Benadryl Injection -) 25 mg IVPB Q6H PRN PRN Reason: ITCHING Heparin Sodium (Porcine) (Heparin -) 5,000 unit SQ TID [facility] Last Admin: 12/16/18 06:44 Dose: 5,000 unit Fat Emulsion Intravenous (Intralipid -) 250 mls @ 20.833 mls/hr IV DAILY@2200 [facility] Last Admin: 12/15/18 21:36 Dose: 20.833 mls/hr Diltiazem HCl 125 mg/ Sodium (Chloride) 125 mls @ 5 mls/hr IVPB TITR [facility]; Protocol Last Admin: 12/16/18 06:43 Dose: 10 mg/hr, 10 mls/hr Potassium Phosphate 15 mm/Calcium Gluconate 1,000 mg/Magnesium Sulfate 2 gm/ Folic Acid 1 mg/ Multivitamins/Minerals 10 ml/ Potassium Chloride 40 meq/ Insulin Human Regular 26 units/ Sterile Water/ Amino Acids/ Dextrose 1,500 mls @ 62.5 mls/hr IVPB DAILY@1600 [facility] Last Admin: 12/15/18 16:34 Dose: 62.5 mls/hr Insulin Aspart (Novolog Vial Sliding Scale -) 1 vial SQ Q6H [facility]; Protocol Last Admin: 12/16/18 06:45 Dose: 6 units Metoprolol Tartrate (Lopressor Injection -) 5 mg IVPUSH Q4H PRN PRN Reason: HYPERTENSION Last Admin: 12/15/18 23:26 Dose: 5 mg Morphine Sulfate (Morphine Sulfate) 4 mg IVPUSH Q4H PRN PRN Reason: Pain Level 8 - 10 BREAKTHROUGH Last Admin: 12/16/18 00:41 Dose: 4 mg Morphine Sulfate (Morphine Sulfate) 2 mg IVPUSH Q4H PRN PRN Reason: Pain Level 6 - 8 BREAKTHROUGH Last Admin: 12/15/18 21:37 Dose: 2 mg Mupirocin (Bactroban Ointment (For Decolonization) -) 1 applic NS BID [facility] Stop: 12/18/18 21:59 Last Admin: 12/16/18 10:22 Dose: 1 applic Ondansetron HCl (Zofran Injection) 4 mg IVPUSH Q4H PRN PRN Reason: NAUSEA AND/OR VOMITING - Objective Vital Signs: Vital Signs Temperature 98.2 F 12/16/18 07:00 Pulse Rate 107 H 12/16/18 07:00 Respiratory Rate 18 12/16/18 07:44 Blood Pressure 123/82 12/16/18 07:00 O2 Sat by Pulse Oximetry (%) 97 12/16/18 07:44 Constitutional: Yes: Calm Cardiovascular: Yes: Pulse Irregular, S1, S2 Respiratory: Yes: CTA Bilaterally, Diminished (at bases), On Nasal O2 Gastrointestinal: Yes: Soft, Other (wound vac) Edema: No Neurological: Yes: Alert, Oriented Labs: CBC, BMP 12/16/18 05:30 12/16/18 05:30 INR, PTT INR 1.19 (0.82-1.09) 11/16/18 14:35 Problem List - Problems (1) Atrial fibrillation with RVR Assessment/Plan: hold eliquis- will need to start iv heparin drip if ok with surgery iv lorpessor iv cardizem drip icu monitirng CTA no PE (2) Abdominal pain Assessment/Plan: 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 fistula now strict NPO no po meds wound vac in place in midline monitor lytes TPN via picc line needs about 6 weeks bowel rest and then [facility] for further surgical management iv pain control dvtppx Code(s): R10.9 - UNSPECIFIED ABDOMINAL PAIN Qualifiers: Abdominal location: unspecified location Qualified Code(s): R10.9 - Unspecified abdominal pain (3) S/P ureteral stent placement Assessment/Plan: seen by urology needs laser lithotripsy as an outpatient r Code(s): Z96.0 - PRESENCE OF UROGENITAL IMPLANTS (4) Diabetes mellitus type 2 in obese Assessment/Plan: bgm noted will start levemir 10 units AM consult noted sliding scale Code(s): E11.69 - TYPE 2 DIABETES MELLITUS WITH OTHER SPECIFIED COMPLICATION; E66.9 - OBESITY, UNSPECIFIED (5) Adrenal adenoma Assessment/Plan: dexa supression test failed will need repeat test later as outpatient per endocrine Code(s): D35.00 - BENIGN NEOPLASM OF UNSPECIFIED ADRENAL GLAND (6) Headache Assessment/Plan: iv pain control if needed Code(s): R51 - HEADACHE (7) Hypertension Code(s): I10 - ESSENTIAL (PRIMARY) HYPERTENSION Qualifiers: Hypertension type: essential hypertension Qualified Code(s): I10 - Essential (primary) hypertension
[2018-12-16 11:35] LABS: URINE RBC 69.6 /hpf (0-4); YEAST PRESENT (NEGATIVE)
[2018-12-16] MEDS ORDERED: CEFTRIAXONE 1 GM in DEXTROSE 5%-WATER - 50 ML IVPB SCH (12:00)
--- NOTE | 2018-12-16 12:22 | PN ---
Progress Note (short form) - Note Progress Note: Renal follow up for CHACHA Pt seen and examined in the ICU awake and alert no acute complaints no sob, cp, N/V, fever or chills making urine on TPN Vital Signs Temperature 98.2 F 12/16/18 07:00 Pulse Rate 107 H 12/16/18 07:00 Respiratory Rate 18 12/16/18 07:44 Blood Pressure 123/82 12/16/18 07:00 O2 Sat by Pulse Oximetry (%) 97 12/16/18 07:44 Intake & Output 12/13/18 12/14/18 12/15/18 12/16/18 23:59 23:59 23:59 23:59 Intake Total 754 1237.5 2110 630 Output Total 2200 1700 800 Balance -1446 1237.5 410 -170 NAD tachycardic Dec BS slight abd tenderness no edema CBC, BMP 12/16/18 05:30 12/16/18 05:30 Current Medications Acetaminophen (Ofirmev Injection -) 1,000 mg IVPB Q6H PRN PRN Reason: Pain Level 4-10 Last Admin: 12/14/18 22:38 Dose: 1,000 mg Chlorhexidine Gluconate (Hibiclens For Decolonization -) 1 applic TP HS [facility] Last Admin: 12/15/18 21:34 Dose: 1 applic Clonidine HCl (Catapres Tts Patch -) 0.2 mg TD Q7D@1000 [facility] Diltiazem HCl (Cardizem Injection -) 10 mg IVPUSH Q4H PRN PRN Reason: TACHYCARDIA Diphenhydramine HCl (Benadryl Injection -) 25 mg IVPB Q6H PRN PRN Reason: ITCHING Heparin Sodium (Porcine) (Heparin -) 5,000 unit SQ TID [facility] Last Admin: 12/16/18 06:44 Dose: 5,000 unit Fat Emulsion Intravenous (Intralipid -) 250 mls @ 20.833 mls/hr IV DAILY@2200 [facility] Last Admin: 12/15/18 21:36 Dose: 20.833 mls/hr Diltiazem HCl 125 mg/ Sodium (Chloride) 125 mls @ 5 mls/hr IVPB TITR [facility]; Protocol Last Admin: 12/16/18 06:43 Dose: 10 mg/hr, 10 mls/hr Potassium Phosphate 15 mm/Calcium Gluconate 1,000 mg/Magnesium Sulfate 2 gm/ Folic Acid 1 mg/ Multivitamins/Minerals 10 ml/ Potassium Chloride 40 meq/ Insulin Human Regular 26 units/ Sterile Water/ Amino Acids/ Dextrose 1,500 mls @ 62.5 mls/hr IVPB DAILY@1600 [facility] Last Admin: 12/15/18 16:34 Dose: 62.5 mls/hr Ceftriaxone Sodium 1 gm/ (Dextrose) 50 mls @ 100 mls/hr IVPB DAILY [facility] Insulin Aspart (Novolog Vial Sliding Scale -) 1 vial SQ Q6H [facility]; Protocol Last Admin: 12/16/18 06:45 Dose: 6 units Metoprolol Tartrate (Lopressor Injection -) 5 mg IVPUSH Q4H PRN PRN Reason: HYPERTENSION Last Admin: 12/15/18 23:26 Dose: 5 mg Morphine Sulfate (Morphine Sulfate) 4 mg IVPUSH Q4H PRN PRN Reason: Pain Level 8 - 10 BREAKTHROUGH Last Admin: 12/16/18 00:41 Dose: 4 mg Morphine Sulfate (Morphine Sulfate) 2 mg IVPUSH Q4H PRN PRN Reason: Pain Level 6 - 8 BREAKTHROUGH Last Admin: 12/15/18 21:37 Dose: 2 mg Mupirocin (Bactroban Ointment (For Decolonization) -) 1 applic NS BID [facility] Stop: 12/18/18 21:59 Last Admin: 12/16/18 10:22 Dose: 1 applic Ondansetron HCl (Zofran Injection) 4 mg IVPUSH Q4H PRN PRN Reason: NAUSEA AND/OR VOMITING 72 year old woman with hx of CKD, Nephrolithiasis, DM who presented with Abd pain secondary to SBO s/p surgical intervention with CHACHA. #Recurrent CHACHA #SBO s/p OR #enterocutaneous fistula #Prolonged NPO #Hypoalbuminema #Abd wound infection #LE edema #Chest Pain/Tightness Cr now 1.3 continue to trend on IV cardizem as per cardiology CTA of the chest showed no PE Continue clonidine patch holding IV enalapril for now given slight rise in Cr Goal BP for now < 150/90 Will continue TPN as patient remains NPO, increase volume to 1.5L today insulin added to TPN, monitor blood glucose Q4h Lipid infusion changed to every other day. Thank you Ethan Ram DO
[2018-12-16] MEDS ORDERED: CEFAZOLIN 1 GM/D5W 1 GM/50 ML BAG IVPB SCH (12:45)
--- NOTE | 2018-12-16 12:55 | PN ---
Physical Exam: SUBJECTIVE: Patient seen and examined HD# 30 ICU D# 2 Overnight Events: No acute events overnight. Pt denies chest pain or shortness of breath. Endorses dysuria over the weekend. OBJECTIVE: Vital Signs Period Temp Pulse Resp BP Sys/Pascual Pulse Ox Last 24 Hr 98.2 F-98.8 F 107-140 18-23 112-150/55-98 96-97 Lines: - PICC Drains: - Abdominal Wound VAC Supplemental Oxygen: None 24 Hour I/Os (thus far): Not strictly monitored Physical Exams: GENERAL: The patient is awake, alert, and fully oriented, in no acute distress. HEAD: Normal with no signs of trauma. EYES: Eyes open spontaneously LUNGS: Breath sounds equal, clear to auscultation bilaterally, no wheezes, no crackles, no accessory muscle use. HEART: Irregularly irregular rate and rhythm, S1, S2 without murmur, rub or gallop. ABDOMEN: Nontender and nondistended. Wound VAC to midline with brown colored output and malodorous; site well appearing. EXTREMITIES: 2+ pulses, warm, well-perfused, trace pretibial edema. PSYCH: Normal mood, normal affect. SKIN: Warm and dry. Drips: - Cardizem @ 10 gtts/hr Anti Infectives: - None Laboratory Results - last 24 hr 12/15/18 12/15/18 12/15/18 15:28 18:52 21:59 WBC RBC Hgb Hct MCV MCH MCHC RDW Plt Count MPV Sodium Potassium Chloride Carbon Dioxide Anion Gap BUN Creatinine Creat Clearance w eGFR POC Glucometer 299 217 147 Random Glucose Calcium Phosphorus Magnesium Urine Color Urine Appearance Urine pH Ur Specific [place] Urine Protein Urine Glucose (UA) Urine Ketones Urine Blood Urine Nitrite Urine Bilirubin Urine Urobilinogen Ur Leukocyte Esterase Urine WBC (Auto) Urine RBC (Auto) Urine Casts (Auto) U Pathogenic Cast Auto U Epithel Cells (Auto) Urine Bacteria (Auto) Urine Yeast (Auto) 12/16/18 12/16/18 12/16/18 05:30 05:30 06:24 WBC 5.6 RBC 3.18 L Hgb 8.9 L Hct 25.7 L MCV 80.9 MCH 27.9 MCHC 34.4 RDW 20.6 H Plt Count 308 MPV 7.7 Sodium 138 Potassium 3.9 Chloride 104 Carbon Dioxide 27 Anion Gap 7 L BUN 38 H Creatinine 1.3 Creat Clearance w eGFR 39.93 POC Glucometer 236 Random Glucose 207 H Calcium 8.0 L Phosphorus 3.4 Magnesium 2.3 Urine Color Urine Appearance Urine pH Ur Specific [place] Urine Protein Urine Glucose (UA) Urine Ketones Urine Blood Urine Nitrite Urine Bilirubin Urine Urobilinogen Ur Leukocyte Esterase Urine WBC (Auto) Urine RBC (Auto) Urine Casts (Auto) U Pathogenic Cast Auto U Epithel Cells (Auto) Urine Bacteria (Auto) Urine Yeast (Auto) 12/16/18 12/16/18 12/16/18 06:27 10:06 12:02 WBC RBC Hgb Hct MCV MCH MCHC RDW Plt Count MPV Sodium Potassium Chloride Carbon Dioxide Anion Gap BUN Creatinine Creat Clearance w eGFR POC Glucometer 242 270 Random Glucose Calcium Phosphorus Magnesium Urine Color Yellow Urine Appearance Turbid Urine pH 6.0 Ur Specific [place] 1.012 Urine Protein 2+ H Urine Glucose (UA) Negative Urine Ketones Negative Urine Blood 2+ H Urine Nitrite Negative Urine Bilirubin Negative Urine Urobilinogen 0.2 Ur Leukocyte Esterase 3+ H Urine WBC (Auto) 2582 Urine RBC (Auto) 69.6 Urine Casts (Auto) 134 U Pathogenic Cast Auto None seen U Epithel Cells (Auto) 18.4 Urine Bacteria (Auto) 55.0 Urine Yeast (Auto) Present Active Medications Generic Name Dose Route Start Last Admin Trade Name Freq PRN Reason Stop Dose Admin Acetaminophen 1,000 mg 12/14/18 19:52 12/14/18 22:38 Ofirmev Injection - IVPB 1,000 mg Q6H PRN Administration Pain Level 4-10 Chlorhexidine Gluconate 1 applic 12/13/18 22:00 12/15/18 21:34 Hibiclens For Decolonization - TP 1 applic HS [facility] Administration Clonidine HCl 0.2 mg 12/20/18 10:00 Catapres Tts Patch - TD Q7D@1000 [facility] Diltiazem HCl 10 mg 12/14/18 19:52 Cardizem Injection - IVPUSH Q4H PRN TACHYCARDIA Diphenhydramine HCl 25 mg 12/14/18 19:52 Benadryl Injection - IVPB Q6H PRN ITCH[facility] Heparin Sodium (Porcine) 5,000 unit 12/14/18 22:00 12/16/18 06:44 Heparin - SQ 5,000 unit TID [facility] Administration Fat Emulsion Intravenous 250 mls @ 20.833 mls/hr 12/14/18 22:00 12/15/18 21: 36 Intralipid - IV 20.833 mls/hr DAILY@2200 [facility] Administration Diltiazem HCl 125 mg/ Sodium 125 mls @ 5 mls/hr 12/14/18 19:52 12/16/18 06:43 Chloride IVPB 10 mg/hr TITR [facility] 10 mls/hr Administration Protocol 5 MG/HR Potassium Phosphate 15 mm/ 1,500 mls @ 62.5 mls/hr 12/15/18 16:00 12/15/18 16 :34 Calcium Gluconate 1,000 mg/ IVPB 62.5 mls/hr Magnesium Sulfate 2 gm/ Folic DAILY@1600 [facility] Administration Acid 1 mg/ Multivitamins/ Minerals 10 ml/ Potassium Chloride 40 meq/ Insulin Human Regular 26 units/ Sterile Water/ Amino Acids/ Dextrose Cefazolin Sodium 1 gm in 50 mls @ 100 mls/hr 12/16/18 12:45 Ancef 1 Gm Premixed Ivpb - IVPB Q8H-IV [facility] Insulin Aspart 1 vial 12/15/18 17:30 12/16/18 06:45 Novolog Vial Sliding Scale - SQ 6 units Q6H [facility] Administration Protocol Metoprolol Tartrate 5 mg 12/14/18 19:52 12/15/18 23:26 Lopressor Injection - IVPUSH 5 mg Q4H PRN Administration HYPERTENSION Morphine Sulfate 4 mg 12/14/18 19:52 12/16/18 00:41 Morphine Sulfate IVPUSH 4 mg Q4H PRN Administration Pain Level 8 - 10 BREAKTHROUGH Morphine Sulfate 2 mg 12/14/18 19:52 12/15/18 21:37 Morphine Sulfate IVPUSH 2 mg Q4H PRN Administration Pain Level 6 - 8 BREAKTHROUGH Mupirocin 1 applic 12/13/18 22:00 12/16/18 10:22 Bactroban Ointment (For Decolonization) - NS 12/18/18 21:59 1 applic BID [facility] Administration Ondansetron HCl 4 mg 12/14/18 19:52 Zofran Injection IVPUSH Q4H PRN NAUSEA AND/OR VOMITING ASSESSMENT/PLAN: 72 year old woman PMH DM2, HTN, CKD, nephrolithiasis s/p L ureteral stent, prolonged hospital course after SBO. Admitted to the ICU for rapid Afib w/ RVR and chest tightness. Neuro (& Psych): - A/O x4. No sedating gtts. Endocrine / Nephrology: - Consult Dr. Ram - T2DM. Continue insulin sliding scale. - CKD. Stable and will continue to trend. Cardiovascular: - Consult Dr. Boston - Rapid Afib. Rate controlled on Cardizem gtts. Cannot transition to pill as pt is NPO per surgery. - HTN. Continue Clonidine patch. Holding Enalapril given rise in Cr. - HLD holding statin Pulm / Resp: - Stable on room air. - Encourage IS Gastrointestinal: - Consult Dr. Rodney - S/p laparoscopic for SBO repair with wound VAC in place. Dr. Rodney to change wound dressing today. Plan for transition to LTAC for 6 weeks before further evaluation by Dr. Rafael Calzada from [facility]. Awaiting care management recommendations. Genitourinary: - Consult Dr. Fleming. - Nephrolithiasis s/p left urethral stent - Suspect UTI given reported dysuria and pyuria, leukocyte esterase, and blood in UA this morning. Culture pending. Previous culture did not grow any organisms. Consulted Dr. Urias via telephone. Recommended starting Aceph for antibiotic coverage. Will evaluate pt this evening/tomorrow morning. Infectious Disease: - Consult Dr. Templeton. - Previously stopped all antibiotic therapy given concern for developing antibiotic resistance in abdominal wound. Will restart per urology recommendations. Musculoskeletal: - Encourage OOB FEN: - TPN per nephrology service Prophylaxis: - DVT: Heparin SQ - GI: Not indicated Dispo: Pt to remain in ICU on Cardizem drip. Ronny Andersen MD, PGY1 ICU Consult Service Visit type - Emergency Visit Emergency Visit: No - New Patient This patient is new to me today: Yes Date on this admission: 12/16/18 - Critical Care Critical Care patient: Yes Total Critical Care Time (in minutes): 36 Critical Care Statement: The care of this patient involved high complexity decision making to prevent further life threatening deterioration of the patient 's condition and/or to evaluate & treat vital organ system(s) failure or risk of failure.
--- NOTE | 2018-12-16 14:40 | PN ---
Progress Note, Physician History of Present Illness: POD26 s/p extensive lysis of intestinal adhesions for developing SBO, with suture repair of small RUQ incisional hernia from inside, with findings of previous intestinal reconstruction/hepaticojejunostomy, done years ago after post-cholecystectomy complications per pt. Also with likely PTFE mesh in situ from subsequent incarcerated umbilical hernia repair, was split in upper aspect for laparotomy. Pt postop had new onset of afib with RVR and was transferred to telemetry, rate had been controlled on po meds. She was briefly on Eliquis, now on hold. Postop, she tolerated soft diabetic diet, though with marginal po intake. Abd pain at times, managed with tylenol, narcotics as breakthrough. Lower pole of abdominal incision was opened at 2 wks postop when abhay were removed for spontaneous drainage, and packed. Then there was more yellow drainage than previously, with a concern of possible sb fistula. CT with po contrast showed no contrast leakage above the fascia or out of the bowel. The rest of the incision was reopened, cultured, and packed, then VAC was placed with white foam at base over fascia. She is now complete NPO with TPN and IV meds only, via PICC. Clear yellow/orange enteric content has been in wound indicative of enterocutaneous fistula. Has been ambulating, voiding, last BM couple days ago after enema. Had CTA chest couple days ago with no evidence of PE, very small pleural effusion. Was then transferred to ICU back in afib with RVR for cardizem drip. Seen sitting up in chair earlier and examined now in bed. VAC intact with about 350ml brown/orangey fluid in canister. Renal is managing TPN. Also walked a little bit earlier per pt. Not needing pain medicine hardly outside of dressing changes. She does complain of some burning with urination yesterday/overnight. UA sent shows +LE, wbc, some blood, culture is pending. - Current Medication List Current Medications: Active Medications Acetaminophen (Ofirmev Injection -) 1,000 mg IVPB Q6H PRN PRN Reason: Pain Level 4-10 Last Admin: 12/14/18 22:38 Dose: 1,000 mg Chlorhexidine Gluconate (Hibiclens For Decolonization -) 1 applic TP HS [facility] Last Admin: 12/15/18 21:34 Dose: 1 applic Clonidine HCl (Catapres Tts Patch -) 0.2 mg TD Q7D@1000 [facility] Diltiazem HCl (Cardizem Injection -) 10 mg IVPUSH Q4H PRN PRN Reason: TACHYCARDIA Diphenhydramine HCl (Benadryl Injection -) 25 mg IVPB Q6H PRN PRN Reason: ITCHING Heparin Sodium (Porcine) (Heparin -) 5,000 unit SQ TID [facility] Last Admin: 12/16/18 13:47 Dose: 5,000 unit Fat Emulsion Intravenous (Intralipid -) 250 mls @ 20.833 mls/hr IV DAILY@2200 [facility] Last Admin: 12/15/18 21:36 Dose: 20.833 mls/hr Diltiazem HCl 125 mg/ Sodium (Chloride) 125 mls @ 5 mls/hr IVPB TITR [facility]; Protocol Last Admin: 12/16/18 06:43 Dose: 10 mg/hr, 10 mls/hr Potassium Phosphate 15 mm/Calcium Gluconate 1,000 mg/Magnesium Sulfate 2 gm/ Folic Acid 1 mg/ Multivitamins/Minerals 10 ml/ Potassium Chloride 40 meq/ Insulin Human Regular 26 units/ Sterile Water/ Amino Acids/ Dextrose 1,500 mls @ 62.5 mls/hr IVPB DAILY@1600 [facility] Stop: 12/16/18 15:59 Last Admin: 12/15/18 16:34 Dose: 62.5 mls/hr Cefazolin Sodium (Ancef 1 Gm Premixed Ivpb -) 1 gm in 50 mls @ 100 mls/hr IVPB Q8H-IV [facility] Last Admin: 12/16/18 13:35 Dose: 100 mls/hr Potassium Phosphate 15 mm/Calcium Gluconate 1,000 mg/Magnesium Sulfate 2 gm/ Folic Acid 1 mg/ Multivitamins/Minerals 10 ml/ Potassium Chloride 40 meq/ Insulin Human Regular 26 units/ Sterile Water/ Amino Acids/ Dextrose 1,500 mls @ 62.5 mls/hr IVPB DAILY@1600 [facility] Insulin Aspart (Novolog Vial Sliding Scale -) 1 vial SQ Q6H [facility]; Protocol Last Admin: 12/16/18 12:30 Dose: 8 units Metoprolol Tartrate (Lopressor Injection -) 5 mg IVPUSH Q4H PRN PRN Reason: HYPERTENSION Last Admin: 12/15/18 23:26 Dose: 5 mg Morphine Sulfate (Morphine Sulfate) 4 mg IVPUSH Q4H PRN PRN Reason: Pain Level 8 - 10 BREAKTHROUGH Last Admin: 12/16/18 13:47 Dose: 4 mg Morphine Sulfate (Morphine Sulfate) 2 mg IVPUSH Q4H PRN PRN Reason: Pain Level 6 - 8 BREAKTHROUGH Last Admin: 12/15/18 21:37 Dose: 2 mg Mupirocin (Bactroban Ointment (For Decolonization) -) 1 applic NS BID [facility] Stop: 12/18/18 21:59 Last Admin: 12/16/18 10:22 Dose: 1 applic Ondansetron HCl (Zofran Injection) 4 mg IVPUSH Q4H PRN PRN Reason: NAUSEA AND/OR VOMITING - Objective Vital Signs: Vital Signs Temperature 98.2 F 12/16/18 07:00 Pulse Rate 107 H 12/16/18 07:00 Respiratory Rate 18 12/16/18 07:44 Blood Pressure 123/82 12/16/18 07:00 O2 Sat by Pulse Oximetry (%) 97 12/16/18 07:44 Vital Signs Period Temp Pulse Resp BP Sys/Pascual Pulse Ox Last 24 Hr 98.2 F-98.8 F 107-140 18-23 112-150/55-98 96-97 Constitutional: Yes: No Distress, Calm, Obese Eyes: Yes: Conjunctiva Clear, EOM Intact HENT: Yes: Atraumatic, Normocephalic Gastrointestinal: Yes: Soft, Abdomen, Obese, Tenderness (incisional mainly, mild to both upper sides). No: Distention, Tenderness, Rebound Extremities: No: Cool, Cyanosis Integumentary: Yes: Incision (midline w/VAC). No: Jaundice, Rash Wound/Incision: Yes: Dressing Dry and Intact (VAC intact at -125mm cont pressure ), Dressing Removed (and VAC changed - white foam strip over necrotic fascia/ mesh/fistula in wound base; black foam strip over that with larger piece bridged on top for trac-pad - good seal obtained), Draining (yellow/orange content under white foam in wound base; brown/orange liquid in canister), Unapproximated (wound base granulating, pink, clean - edges of mesh visible in lower half of wound, small more defined opening just beneath upper edge of mesh visible beneath it - likely site of fistula; much of fascia that was over the mesh is necrotic, gone; upper portion yellow stained on white; sutures still present in wound). No: Reddened, Bleeding (scant oozing at edge with foam removal, stops spontaneously) Neurological: Yes: Alert, Oriented Labs: CBC, BMP 12/16/18 05:30 12/16/18 05:30 Mg, Phos ok Urine Test Results Urine Color Yellow 12/16/18 10:06 Urine Appearance Turbid 12/16/18 10:06 Urine pH 6.0 (5.0-8.0) 12/16/18 10:06 Ur Specific Vivian 1.012 (1.010-1.035) 12/16/18 10:06 Urine Protein 2+ (NEGATIVE) H 12/16/18 10:06 Urine Glucose (UA) Negative (NEGATIVE) 12/16/18 10:06 Urine Ketones Negative (NEGATIVE) 12/16/18 10:06 Urine Blood 2+ (NEGATIVE) H 12/16/18 10:06 Urine Nitrite Negative (NEGATIVE) 12/16/18 10:06 Urine Bilirubin Negative (NEGATIVE) 12/16/18 10:06 Ur Leukocyte Esterase 3+ (NEGATIVE) H 12/16/18 10:06 2582 WBC, 70 RBC, 55 bacteria, + yeast, also some casts (ureteral stent on left side present) Problem List - Problems (1) Intestinal adhesions with partial obstruction Assessment/Plan: POD26 s/p extensive lysis of adhesions and RUQ incisional hernia repair s/p hepaticojejunostomy in past with intestinal reconstruction - with dilated/ stagnant loop of anastomotic area had small enterotomy with small yellow fluid leakage repaired in proximal SB ( hepatic limb?) up under RUQ scar, near incisional hernia, minimal contamination POD9 s/p complex I&D of postop wound infection enterocutaneous fistula present under midportion of midline wound VAC changed with Giorgio Garcia ([facility]), with good seal obtained at -125mm continuous pressure fistula site little more defined just under superior edges of in situ mesh, under where necrotic fascia was COMPLETE NPO with TPN, IV meds only via PICC line from IR pain meds prn - tylenol first line, morphine as needed breakthrough and for dressing changes (given) trend labs, monitor lytes, glucose TPN per renal discussed with Debby Andersen of ICU team Code(s): K56.51 - INTESTINAL ADHESIONS [BANDS], WITH PARTIAL OBSTRUCTION (2) Infection following a procedure, superficial incisional surgical site, initial encounter Assessment/Plan: culture grew mostly sensitive E. coli, E. faecalis, yeast-like organism Code(s): T81.41XA - INFCT FOL A PROC, SUPERFIC INCISIONAL SURGICAL SITE, INIT (3) Enterocutaneous fistula Assessment/Plan: in context of PTFE mesh in situ in field/wound and underlying abnormal intestinal anatomy discussed with Dr. Calzada at [place] he is ok with transfer to [facility] for complex wound care ([employer] VAC with white foam/ black foam), TPN and telemetry needs he would then see her as outpatient in his office from [facility] at 6 wks postop to decide when to have her transferred to [place] for intervention per CM today, her [facility], as she is still acute will re-present in couple days, possibly when pt is back to tele from ICU? and all drips/IV meds are stable Code(s): K63.2 - FISTULA OF INTESTINE (4) Persistent postprocedural fistula, initial encounter Assessment/Plan: enteric content in wound consistent with fistula continue VAC - white foam in wound base, black over plan is transfer to [facility] for ongoing care, until it is time for evaluation by Dr. Rafael Calzada from [place] (6 wks postop) VAC changes 3x weekly - next Sunday TPN/complete NPO might be able to try po challenge during LTACH stay in another week or two to see if fistula output increases Code(s): T81.83XA - PERSISTENT POSTPROCEDURAL FISTULA, INITIAL ENCOUNTER (5) Incisional hernia, without obstruction or gangrene Code(s): K43.2 - INCISIONAL HERNIA WITHOUT OBSTRUCTION OR GANGRENE (6) Atrial fibrillation with RVR Assessment/Plan: keep lytes repleted Eliquis on hold converted back to ALL IV meds, completely NPO cardiology following in ICU for cardizem drip and rate control could consider using heparin drip WITHOUT BOLUS for anticoagulation at this point will reassess wound for bleeding when VAC changed Sun. discussed with Dr. Boston, cardiology This patient is critically ill. Time spent reviewing chart, examining patient, talking with providers and/or family and documentation is 45 minutes. Code(s): I48.91 - UNSPECIFIED ATRIAL FIBRILLATION (7) Hypertension Assessment/Plan: cardio managing, meds back to IV with clonidine patch Code(s): I10 - ESSENTIAL (PRIMARY) HYPERTENSION Qualifiers: Hypertension type: essential hypertension Qualified Code(s): I10 - Essential (primary) hypertension (8) Diabetes mellitus type 2 in obese Assessment/Plan: endo had seen glucose management along with TPN - insulin added to TPN TPN per renal Code(s): E11.69 - TYPE 2 DIABETES MELLITUS WITH OTHER SPECIFIED COMPLICATION; E66.9 - OBESITY, UNSPECIFIED (9) S/P ureteral stent placement Assessment/Plan: left ureteral stent in place; management per uro - pt may need laser lithotripsy with stent removal?, off anticoagulation mild increase in left hydronephrosis on last CT now with possible UTI? urology re-called ID also recalled Code(s): Z96.0 - PRESENCE OF UROGENITAL IMPLANTS (10) Gout Assessment/Plan: home med on hold Code(s): M10.9 - GOUT, UNSPECIFIED Qualifiers: Gout site: toe Gout etiology: unspecified cause Chronicity: unspecified Laterality: unspecified laterality Qualified Code(s): M10.9 - Gout, unspecified (11) CKD (chronic kidney disease) stage 3, GFR 30-59 ml/min Assessment/Plan: nephrology following and managing TPN trend labs daily Code(s): N18.3 - CHRONIC KIDNEY DISEASE, STAGE 3 (MODERATE)
[2018-12-16] MEDS ORDERED: PT OWN MED DRAWER 7, Y5N ONE (15:03)
[2018-12-16] MEDS ORDERED: POTASSIUM PHOSPHATE IVPB SCH (16:00)
[2018-12-16] MEDS ORDERED: [UNRECOGNIZED DRUG - OTHER] IVPB SCH (16:00)
[2018-12-16] MEDS ORDERED: MAGNESIUM SULFATE IVPB SCH (16:00)
[2018-12-16] MEDS ORDERED: CALCIUM GLUCONATE IVPB SCH (16:00)
--- NOTE | 2018-12-16 16:09 | PN ---
Progress Note, Physician History of Present Illness: AWAKE, ALERT IN BED REPORTS EPISODES OF DYSURIA PAST 24HR U/A MANY WBC NO C/O F/C - Current Medication List Current Medications: Active Medications Acetaminophen (Ofirmev Injection -) 1,000 mg IVPB Q6H PRN PRN Reason: Pain Level 4-10 Last Admin: 12/14/18 22:38 Dose: 1,000 mg Chlorhexidine Gluconate (Hibiclens For Decolonization -) 1 applic TP HS [facility] Last Admin: 12/15/18 21:34 Dose: 1 applic Clonidine HCl (Catapres Tts Patch -) 0.2 mg TD Q7D@1000 [facility] Diltiazem HCl (Cardizem Injection -) 10 mg IVPUSH Q4H PRN PRN Reason: TACHYCARDIA Diphenhydramine HCl (Benadryl Injection -) 25 mg IVPB Q6H PRN PRN Reason: ITCHING Heparin Sodium (Porcine) (Heparin -) 5,000 unit SQ TID [facility] Last Admin: 12/16/18 13:47 Dose: 5,000 unit Fat Emulsion Intravenous (Intralipid -) 250 mls @ 20.833 mls/hr IV DAILY@2200 [facility] Last Admin: 12/15/18 21:36 Dose: 20.833 mls/hr Diltiazem HCl 125 mg/ Sodium (Chloride) 125 mls @ 5 mls/hr IVPB TITR [facility]; Protocol Last Admin: 12/16/18 06:43 Dose: 10 mg/hr, 10 mls/hr Cefazolin Sodium (Ancef 1 Gm Premixed Ivpb -) 1 gm in 50 mls @ 100 mls/hr IVPB Q8H-IV [facility] Last Admin: 12/16/18 13:35 Dose: 100 mls/hr Potassium Phosphate 15 mm/Calcium Gluconate 1,000 mg/Magnesium Sulfate 2 gm/ Folic Acid 1 mg/ Multivitamins/Minerals 10 ml/ Potassium Chloride 40 meq/ Insulin Human Regular 26 units/ Sterile Water/ Amino Acids/ Dextrose 1,500 mls @ 62.5 mls/hr IVPB DAILY@1600 [facility] Insulin Aspart (Novolog Vial Sliding Scale -) 1 vial SQ Q6H [facility]; Protocol Last Admin: 12/16/18 12:30 Dose: 8 units Metoprolol Tartrate (Lopressor Injection -) 5 mg IVPUSH Q4H PRN PRN Reason: HYPERTENSION Last Admin: 12/15/18 23:26 Dose: 5 mg Morphine Sulfate (Morphine Sulfate) 4 mg IVPUSH Q4H PRN PRN Reason: Pain Level 8 - 10 BREAKTHROUGH Last Admin: 12/16/18 13:47 Dose: 4 mg Morphine Sulfate (Morphine Sulfate) 2 mg IVPUSH Q4H PRN PRN Reason: Pain Level 6 - 8 BREAKTHROUGH Last Admin: 12/16/18 15:45 Dose: 2 mg Mupirocin (Bactroban Ointment (For Decolonization) -) 1 applic NS BID [facility] Stop: 12/18/18 21:59 Last Admin: 12/16/18 10:22 Dose: 1 applic Ondansetron HCl (Zofran Injection) 4 mg IVPUSH Q4H PRN PRN Reason: NAUSEA AND/OR VOMITING - Objective Vital Signs: Vital Signs Temperature 97.8 F 12/16/18 14:00 Pulse Rate 103 H 12/16/18 14:00 Respiratory Rate 21 H 12/16/18 14:00 Blood Pressure 142/88 12/16/18 14:00 O2 Sat by Pulse Oximetry (%) 97 12/16/18 07:44 Constitutional: Yes: Obese Eyes: Yes: Conjunctiva Clear Cardiovascular: Yes: S1, S2. No: Regular Rate and Rhythm Respiratory: Yes: CTA Bilaterally Gastrointestinal: Yes: Normal Bowel Sounds, Soft. No: Tenderness Labs: CBC, BMP 12/16/18 05:30 12/16/18 05:30 INR, PTT INR 1.19 (0.82-1.09) 11/16/18 14:35 Assessment/Plan UTI HX OBSTRUCTIVE UROPATHY/URETERAL STENT POST OP LAPAROTOMY/ PAN AWAIT CULTURES EMPIRIC CEFTRIAXONE
--- NOTE | 2018-12-16 16:25 | PROC ---
Procedure Note Procedure: Ultrasound Guided IV Line Placement # 1 PROCEDURE NOTE: IV Placement under Ultrasound Guidance PROCEDURE WEB PRODUCER: Ronny Andersen M.D. Resident Indication: IV access required. Multiple attempts at peripheral IV placement were made by the nursing staff without success. Procedure: The area was prepped in the usual fashion. The R basilic vein was cannulated with a 20 gauge angiocath with use of dynamic ultrasound to identify the vein. The patient tolerated the procedure well. Complications: none Ultrasound Guided IV Line Placement # 2 PROCEDURE NOTE: IV Placement under Ultrasound Guidance PROCEDURE WEB PRODUCER: Ronny Andersen M.D. Resident Indication: IV access required. Multiple attempts at peripheral IV placement were made by the nursing staff without success. Procedure: The area was prepped in the usual fashion. The L basilic vein was cannulated with a 20 gauge angiocath with use of dynamic ultrasound to identify the vein. The patient tolerated the procedure well. Complications: none
[2018-12-16] MEDS ORDERED: HEPARIN - 25,000 UNIT in SODIUM CHLORIDE 495 ML IV SCH (16:30)
[2018-12-16] MEDS ORDERED: DEXTROSE 5%-WATER 100 ML IVPB ONE (16:35)
[2018-12-16] MEDS: CEFTRIAXONE 2 GM in DEXTROSE 5%-WATER 100 ML IVPB SCH (16:38)
[2018-12-16] MEDS: HEPARIN - 25,000 UNIT in SODIUM CHLORIDE 495 ML IV SCH (17:28)
[2018-12-16] MEDS: CHLORHEXIDINE GLUCONATE 4% CLEANSER FOR DECOLONIZATION TP SCH (21:53)
[2018-12-17] MEDS: INSULIN SLIDING SCALE (NOVOLOG) 1 VIAL SQ SCH ×5 (00:14→23:59)
[2018-12-17] MEDS: DILTIAZEM INJECTION 125 MG in SODIUM CHLORIDE 100 ML IVPB SCH ×2 (05:46→20:30)
[2018-12-17] MEDS: morphine SULFATE 4 MG/ML VIAL IVPUSH PRN ×3 (05:48→21:54)
[2018-12-17 06:51] LABS: BASO % 0.6 % (0-2.0); HEMATOCRIT 26.2 % (32.4-45.2); HEMOGLOBIN 8.7 GM/dL (10.7-15.3); MCHC 33.1 g/dl (32.0-36.0); MEAN CELL VOLUME 81.7 fl (80-96); MEAN PLT VOLUME 8.1 fl (7.5-11.1); MONO % 13.4 % (3.8-10.2); PLATELET COUNT 256 K/MM3 (134-434); RBC 3.21 M/mm3 (3.60-5.2); WHITE BLOOD COUNT 4.7 K/mm3 (4.0-10.0)
[2018-12-17] MEDS ORDERED: INSULIN (LEVEMIR) 100 UNITS/ML UNITS SQ SCH (07:00)
[2018-12-17 07:12] LABS: INR 1.13 (0.83-1.09); PROTHROMBIN TIME (PATIENT) 13.4 SEC (9.7-13.0)
[2018-12-17 07:14] LABS: ACTIVATED PTT 32.7 SECONDS (25.2-36.5)
[2018-12-17 07:23] LABS: ALBUMIN 1.7 g/dl (3.4-5.0); ALK PHOS 121 U/L (45-117); ANION GAP 8 MMOL/L (8-16); BILIRUBIN,TOTAL 0.3 mg/dL (0.2-1); BLOOD UREA NITROGEN 43 mg/dL (7-18); CALCIUM 8.4 mg/dL (8.5-10.1); CHLORIDE 104 mmol/L (98-107); CO2 27 mmol/L (21-32); CREATININE 1.2 mg/dL (0.55-1.3); GLUCOSE,RANDOM 229 mg/dL (74-106); MAGNESIUM 2.2 mg/dL (1.8-2.4); PHOSPHOROUS 3.6 mg/dL (2.5-4.9); POTASSIUM 4.3 mmol/L (3.5-5.1); SGOT/AST 21 U/L (15-37); SGPT/ALT 12 U/L (13-61); SODIUM 139 mmol/L (136-145); TOT PROT 6.3 g/dl (6.4-8.2)
--- NOTE | 2018-12-17 08:31 | PN ---
Progress Note, Physician Chief Complaint: AWAKE ALERT DENIES PAIN/FEVER OR CHILLS - Current Medication List Current Medications: Active Medications Acetaminophen (Ofirmev Injection -) 1,000 mg IVPB Q6H PRN PRN Reason: Pain Level 4-10 Last Admin: 12/14/18 22:38 Dose: 1,000 mg Chlorhexidine Gluconate (Hibiclens For Decolonization -) 1 applic TP HS [facility] Last Admin: 12/16/18 21:53 Dose: 1 applic Clonidine HCl (Catapres Tts Patch -) 0.2 mg TD Q7D@1000 [facility] Diltiazem HCl (Cardizem Injection -) 10 mg IVPUSH Q4H PRN PRN Reason: TACHYCARDIA Diphenhydramine HCl (Benadryl Injection -) 25 mg IVPB Q6H PRN PRN Reason: ITCHING Fat Emulsion Intravenous (Intralipid -) 250 mls @ 20.833 mls/hr IV DAILY@2200 [facility] Last Admin: 12/15/18 21:36 Dose: 20.833 mls/hr Diltiazem HCl 125 mg/ Sodium (Chloride) 125 mls @ 5 mls/hr IVPB TITR [facility]; Protocol Last Admin: 12/17/18 05:46 Dose: 10 mg/hr, 10 mls/hr Potassium Phosphate 15 mm/Calcium Gluconate 1,000 mg/Magnesium Sulfate 2 gm/ Folic Acid 1 mg/ Multivitamins/Minerals 10 ml/ Potassium Chloride 40 meq/ Insulin Human Regular 26 units/ Sterile Water/ Amino Acids/ Dextrose 1,500 mls @ 62.5 mls/hr IVPB DAILY@1600 [facility] Last Admin: 12/16/18 16:00 Dose: 62.5 mls/hr Ceftriaxone Sodium 2 gm/ (Dextrose) 100 mls @ 100 mls/hr IVPB DAILY [facility]; Protocol Last Admin: 12/16/18 16:38 Dose: 100 mls/hr Heparin Sodium (Porcine) 25, (000 unit/ Sodium Chloride) 500 mls @ 18 mls/hr IV TITR [facility]; Protocol Last Titration: 12/17/18 07:52 Dose: 750 unit/hr, 15 mls/hr Insulin Aspart (Novolog Vial Sliding Scale -) 1 vial SQ Q6H [facility]; Protocol Last Admin: 12/17/18 05:46 Dose: 6 units Metoprolol Tartrate (Lopressor Injection -) 5 mg IVPUSH Q4H PRN PRN Reason: HYPERTENSION Last Admin: 12/15/18 23:26 Dose: 5 mg Morphine Sulfate (Morphine Sulfate) 4 mg IVPUSH Q4H PRN PRN Reason: Pain Level 8 - 10 BREAKTHROUGH Last Admin: 12/17/18 05:48 Dose: 4 mg Morphine Sulfate (Morphine Sulfate) 2 mg IVPUSH Q4H PRN PRN Reason: Pain Level 6 - 8 BREAKTHROUGH Last Admin: 12/16/18 15:45 Dose: 2 mg Mupirocin (Bactroban Ointment (For Decolonization) -) 1 applic NS BID [facility] Stop: 12/18/18 21:59 Last Admin: 12/16/18 21:58 Dose: 1 applic Ondansetron HCl (Zofran Injection) 4 mg IVPUSH Q4H PRN PRN Reason: NAUSEA AND/OR VOMITING - Objective Vital Signs: Vital Signs Temperature 97.1 F L 12/17/18 06:00 Pulse Rate 116 H 12/17/18 08:00 Respiratory Rate 14 12/17/18 08:00 Blood Pressure 119/86 12/17/18 08:00 O2 Sat by Pulse Oximetry (%) 97 12/16/18 23:29 Constitutional: Yes: Mild Distress Eyes: Yes: WNL HENT: Yes: WNL Neck: Yes: WNL Cardiovascular: Yes: Pulse Irregular Respiratory: Yes: On Nasal O2 Gastrointestinal: Yes: Soft, Other Genitourinary: Yes: Incontinence Musculoskeletal: Yes: Muscle Weakness Edema: Yes Integumentary: Yes: Other Wound/Incision: Yes: Dressing Dry and Intact, Other (WOUNDVAC) Psychiatric: Yes: WNL Labs: CBC, BMP 12/17/18 05:30 12/17/18 05:30 INR, PTT INR 1.13 (0.83-1.09) H 12/17/18 05:30 Problem List - Problems (1) Abdominal pain Code(s): R10.9 - UNSPECIFIED ABDOMINAL PAIN Qualifiers: Abdominal location: unspecified location Qualified Code(s): R10.9 - Unspecified abdominal pain (2) Atrial fibrillation with RVR Code(s): I48.91 - UNSPECIFIED ATRIAL FIBRILLATION (3) CKD (chronic kidney disease) stage 3, GFR 30-59 ml/min Code(s): N18.3 - CHRONIC KIDNEY DISEASE, STAGE 3 (MODERATE) (4) Diabetes mellitus type 2 in obese Code(s): E11.69 - TYPE 2 DIABETES MELLITUS WITH OTHER SPECIFIED COMPLICATION; E66.9 - OBESITY, UNSPECIFIED (5) Small bowel obstruction Code(s): K56.609 - UNSP INTESTNL OBST, UNSP TO PARTIAL VERSUS COMPLETE OBST Assessment/Plan TACHYCARDI WITH AFIB OVERNIGHT TIL AM ADDING DIGOXIN IV 0.25 Q6HRS CARDIO F/U ABDOMINAL WOUND FOUL SMELLING CHANGED DRESSING, PAIN MEDS IV ABX SURGERY F/U APPRECIATED WILL CALL BACK R/O FISTULA INCENTIVE SPIROMETRY DVT PROPHYLAXIS ICU CARE APPRECIATED
[2018-12-17] MEDS: DIGOXIN 0.5 MG/2 ML AMPUL IVPUSH SCH ×3 (08:39→21:53)
--- NOTE | 2018-12-17 09:24 | PN ---
Progress Note (short form) - Note Progress Note: s: no cp sob palps dizzy o: Vital Signs Period Temp Pulse Resp BP Sys/Pascual Pulse Ox Last 24 Hr 97.1 F-98.4 F 93-129 14-26 98-147/54-118 97 Constitutional: Yes: Well Nourished, No Distress, Calm Eyes: Yes: Conjunctiva Clear Respiratory: Yes: Regular, CTA Bilaterally Gastrointestinal: Yes: Tenderness Cardiovascular: Yes: irreg JVD: No Heart Sounds: Yes: S1, S2 Murmur: No: Systolic Murmur Extremities: No: Cold Edema: No Peripheral Pulses: 2+ Left Doralis Pedis, 2+ Right Dorsalis Pedis Integumentary: No: Jaundice Neurological: Yes: Alert, Oriented Psychiatric: No: Agitated Current Medications Acetaminophen (Ofirmev Injection -) 1,000 mg IVPB Q6H PRN PRN Reason: Pain Level 4-10 Last Admin: 12/14/18 22:38 Dose: 1,000 mg Chlorhexidine Gluconate (Hibiclens For Decolonization -) 1 applic TP HS [facility] Last Admin: 12/16/18 21:53 Dose: 1 applic Clonidine HCl (Catapres Tts Patch -) 0.2 mg TD Q7D@1000 [facility] Digoxin (Lanoxin Injection -) 0.25 mg IVPUSH Q6H [facility] Stop: 12/18/18 09:00 Last Admin: 12/17/18 08:39 Dose: 0.25 mg Diltiazem HCl (Cardizem Injection -) 10 mg IVPUSH Q4H PRN PRN Reason: TACHYCARDIA Diphenhydramine HCl (Benadryl Injection -) 25 mg IVPB Q6H PRN PRN Reason: ITCHING Fat Emulsion Intravenous (Intralipid -) 250 mls @ 20.833 mls/hr IV DAILY@2200 [facility] Last Admin: 12/15/18 21:36 Dose: 20.833 mls/hr Diltiazem HCl 125 mg/ Sodium (Chloride) 125 mls @ 5 mls/hr IVPB TITR [facility]; Protocol Last Admin: 12/17/18 05:46 Dose: 10 mg/hr, 10 mls/hr Potassium Phosphate 15 mm/Calcium Gluconate 1,000 mg/Magnesium Sulfate 2 gm/ Folic Acid 1 mg/ Multivitamins/Minerals 10 ml/ Potassium Chloride 40 meq/ Insulin Human Regular 26 units/ Sterile Water/ Amino Acids/ Dextrose 1,500 mls @ 62.5 mls/hr IVPB DAILY@1600 [facility] Last Admin: 12/16/18 16:00 Dose: 62.5 mls/hr Ceftriaxone Sodium 2 gm/ (Dextrose) 100 mls @ 100 mls/hr IVPB DAILY [facility]; Protocol Last Admin: 12/16/18 16:38 Dose: 100 mls/hr Heparin Sodium (Porcine) 25, (000 unit/ Sodium Chloride) 500 mls @ 18 mls/hr IV TITR [facility]; Protocol Last Titration: 12/17/18 07:52 Dose: 750 unit/hr, 15 mls/hr Insulin Aspart (Novolog Vial Sliding Scale -) 1 vial SQ Q6H [facility]; Protocol Last Admin: 12/17/18 05:46 Dose: 6 units Metoprolol Tartrate (Lopressor Injection -) 5 mg IVPUSH Q4H PRN PRN Reason: HYPERTENSION Last Admin: 12/15/18 23:26 Dose: 5 mg Morphine Sulfate (Morphine Sulfate) 4 mg IVPUSH Q4H PRN PRN Reason: Pain Level 8 - 10 BREAKTHROUGH Last Admin: 12/17/18 05:48 Dose: 4 mg Mupirocin (Bactroban Ointment (For Decolonization) -) 1 applic NS BID [facility] Stop: 12/18/18 21:59 Last Admin: 12/16/18 21:58 Dose: 1 applic Ondansetron HCl (Zofran Injection) 4 mg IVPUSH Q4H PRN PRN Reason: NAUSEA AND/OR VOMITING Assessment/Plan EKG: initial sinus, LVH, first deg AVB EKG 11/22 afib with RVR rate 135 bpm echo 11/2016 LV mildly dilated, nl LV function, sigmoid septum, RV nl, LA severely dilated, RA mildly enlarged, mild MR, mild TR, at least mild pulm HTN, RVSP at least 42 mmHg CTA chest 12/13 no PE, increase in size of R pleural effusion (small) and stable L pleural effusion tele:afib with occasional RVR 140s afib - in post op setting after ex lap, PAN. - 11/25: converted spontaneously now to sinus - 11/26: overnight converted back to afib with RVR, dilt gtt was started, initially poor IV access now has been running, no improvement with additional lopressor 5 mg IV this morning. replete K and Mg, digoxin 0.125 mg IV x 1 ordered, cont dilt gtt - 11/27: started diltiazem 60 mg PO Q6H, increase to 90 mg Q6H, start propranolol 20 mg Q6H, uptitrate as tolerated, wean dilt gtt as tolerated -11/28-: rate controlled on po meds. eliquis started. -12/02-: sinus. continue diltiazem CD 360 mg daily, propranolol LA 60 mg daily. -12/07: soft BPs, hgb trending down. surgery f/u. hold eliquis until anemia stabilizes. -12/08: Hgb 7.8, agree with holding DOAC until hgb more stable - 12/09-: holding eliquis continue short acting diltiazem po, hr stable. long acting dilt and inderal on hold due to NPO. - 12/13-: monitoring in ICU for afib with RVR, dilt gtt and PRN lopressor. replete lytes for K >4.0 and Mg >2.0 - 12/15: occasionally in sinus, rate ok in afib with occasional rvr. continue dilt gtt. hold on digoxin as Cr rising, d/w renal. - 12/17: on dilt gtt, receiving IV digoxin load. heparin gtt started, monitoring h/h. SBO s/p ex lap, PAN -surgery following, npo now -holding eliquis for now - on heparin gtt, monitor h/h HTN -chronically suboptimal BP control at home -has been on mult meds including clonidine at home -lisinopril, chlorthalidone held here in setting of CHACHA, clonidine continued -hi dose diltiazem plus low dose propranolol started here to control rapid AF - transitioned to clonidine patch while NPO pulm HTN, chronic diastolic HF - mild to mod, likely 2/2 diastolic CHF - appears euvolemic DM - manage per primary HLD - continue statin
[2018-12-17] MEDS ORDERED: DEXTROSE 5%-WATER 100 ML IVPB ONE (09:45)
[2018-12-17] MEDS: CEFTRIAXONE 2 GM in DEXTROSE 5%-WATER 100 ML IVPB SCH (09:54)
[2018-12-17 10:04] LABS: ANISOCYTOSIS 1+; MACROCYTOSIS 0; PLATELET ESTIMATE NORMAL
[2018-12-17] MEDS: MUPIROCIN 2% TOPICAL OINTMENT FOR DECOLONIZATION NS SCH ×2 (11:11→21:54)
--- NOTE | 2018-12-17 11:35 | PN ---
Physical Exam: SUBJECTIVE: Patient seen and examined HD# 30 ICU D# 2 Overnight Events: No acute events overnight. Pt denies chest pain or shortness of breath. Endorses dysuria over the weekend. OBJECTIVE: Vital Signs Period Temp Pulse Resp BP Sys/Pascual Pulse Ox Last 24 Hr 97.1 F-98.4 F 93-120 12- 98-152/49-118 97-97 Lines: - PICC Drains: - Abdominal Wound VAC Supplemental Oxygen: None 24 Hour I/Os (thus far): Not strictly monitored Physical Exams: GENERAL: The patient is awake, alert, and fully oriented, in no acute distress. HEAD: Normal with no signs of trauma. EYES: Eyes open spontaneously LUNGS: Breath sounds equal, clear to auscultation bilaterally, no wheezes, no crackles, no accessory muscle use. HEART: Irregularly irregular rate and rhythm, S1, S2 without murmur, rub or gallop. ABDOMEN: Mildly tender around wound site without grimace or withdrawal. Abd is nondistended. Wound VAC to midline with brown colored output and malodorous; site well appearing. EXTREMITIES: 2+ pulses, warm, well-perfused, trace pretibial edema. PSYCH: Normal mood, normal affect. SKIN: Warm and dry. Drips: - Cardizem @ 10 mg/hr - Heparin @ 750 units/hr Anti Infectives: - None Laboratory Results - last 24 hr 12/16/18 12/16/18 12/16/18 10:06 12:02 18:00 WBC RBC Hgb Hct MCV MCH MCHC RDW Plt Count MPV Absolute Neuts (auto) Neutrophils % Lymphocytes % Monocytes % Eosinophils % Basophils % Nucleated RBC % Hypochromia Platelet Estimate Polychromasia Poikilocytosis Anisocytosis Microcytosis Macrocytosis PT with INR INR PTT (Actin FS) Sodium Potassium Chloride Carbon Dioxide Anion Gap BUN Creatinine Creat Clearance w eGFR POC Glucometer 270 204 Random Glucose Calcium Phosphorus Magnesium Total Bilirubin AST ALT Alkaline Phosphatase Total Protein Albumin Urine RBC (Auto) 69.6 U Pathogenic Cast Auto None seen Urine Yeast (Auto) Present 12/16/18 12/17/18 12/17/18 21:46 00:03 05:28 WBC RBC Hgb Hct MCV MCH MCHC RDW Plt Count MPV Absolute Neuts (auto) Neutrophils % Lymphocytes % Monocytes % Eosinophils % Basophils % Nucleated RBC % Hypochromia Platelet Estimate Polychromasia Poikilocytosis Anisocytosis Microcytosis Macrocytosis PT with INR INR PTT (Actin FS) > 400.0 H Sodium Potassium Chloride Carbon Dioxide Anion Gap BUN Creatinine Creat Clearance w eGFR POC Glucometer 130 204 Random Glucose Calcium Phosphorus Magnesium Total Bilirubin AST ALT Alkaline Phosphatase Total Protein Albumin Urine RBC (Auto) U Pathogenic Cast Auto Urine Yeast (Auto) 12/17/18 12/17/18 12/17/18 05:30 05:30 05:30 WBC 4.7 RBC 3.21 L Hgb 8.7 L Hct 26.2 L MCV 81.7 MCH 27.0 MCHC 33.1 RDW 21.0 H Plt Count 256 MPV 8.1 Absolute Neuts (auto) 2.8 Neutrophils % 60.0 Lymphocytes % 23.0 Monocytes % 13.4 H Eosinophils % 3.0 Basophils % 0.6 Nucleated RBC % 0 Hypochromia 0 Platelet Estimate Normal Polychromasia 0 Poikilocytosis 0 Anisocytosis 1+ Microcytosis 1+ Macrocytosis 0 PT with INR 13.40 H INR 1.13 H PTT (Actin FS) 32.7 Sodium 139 Potassium 4.3 Chloride 104 Carbon Dioxide 27 Anion Gap 8 BUN 43 H Creatinine 1.2 Creat Clearance w eGFR 43.80 POC Glucometer Random Glucose 229 H Calcium 8.4 L Phosphorus 3.6 Magnesium 2.2 Total Bilirubin 0.3 AST 21 ALT 12 L Alkaline Phosphatase 121 H Total Protein 6.3 L Albumin 1.7 L Urine RBC (Auto) U Pathogenic Cast Auto Urine Yeast (Auto) 12/17/18 11:18 WBC RBC Hgb Hct MCV MCH MCHC RDW Plt Count MPV Absolute Neuts (auto) Neutrophils % Lymphocytes % Monocytes % Eosinophils % Basophils % Nucleated RBC % Hypochromia Platelet Estimate Polychromasia Poikilocytosis Anisocytosis Microcytosis Macrocytosis PT with INR INR PTT (Actin FS) Sodium Potassium Chloride Carbon Dioxide Anion Gap BUN Creatinine Creat Clearance w eGFR POC Glucometer 263 Random Glucose Calcium Phosphorus Magnesium Total Bilirubin AST ALT Alkaline Phosphatase Total Protein Albumin Urine RBC (Auto) U Pathogenic Cast Auto Urine Yeast (Auto) Active Medications Generic Name Dose Route Start Last Admin Trade Name Freq PRN Reason Stop Dose Admin Acetaminophen 1,000 mg 12/14/18 19:52 12/14/18 22:38 Ofirmev Injection - IVPB 1,000 mg Q6H PRN Administration Pain Level 4-10 Chlorhexidine Gluconate 1 applic 12/13/18 22:00 12/16/18 21:53 Hibiclens For Decolonization - TP 1 applic HS [facility] Administration Clonidine HCl 0.2 mg 12/20/18 10:00 Catapres Tts Patch - TD Q7D@1000 [facility] Digoxin 0.25 mg 12/17/18 08:30 12/17/18 08:39 Lanoxin Injection - IVPUSH 12/18/18 09:00 0.25 mg Q6H [facility] Administration Diltiazem HCl 10 mg 12/14/18 19:52 Cardizem Injection - IVPUSH Q4H PRN TACHYCARDIA Diphenhydramine HCl 25 mg 12/14/18 19:52 Benadryl Injection - IVPB Q6H PRN [facility] Fat Emulsion Intravenous 250 mls @ 20.833 mls/hr 12/14/18 22:00 12/15/18 21: 36 Intralipid - IV 20.833 mls/hr DAILY@2200 [facility] Administration Diltiazem HCl 125 mg/ Sodium 125 mls @ 5 mls/hr 12/14/18 19:52 12/17/18 05:46 Chloride IVPB 10 mg/hr TITR [facility] 10 mls/hr Administration Protocol 5 MG/HR Potassium Phosphate 15 mm/ 1,500 mls @ 62.5 mls/hr 12/16/18 16:00 12/16/18 16 :00 Calcium Gluconate 1,000 mg/ IVPB 62.5 mls/hr Magnesium Sulfate 2 gm/ Folic DAILY@1600 [facility] Administration Acid 1 mg/ Multivitamins/ Minerals 10 ml/ Potassium Chloride 40 meq/ Insulin Human Regular 26 units/ Sterile Water/ Amino Acids/ Dextrose Ceftriaxone Sodium 2 gm/ 100 mls @ 100 mls/hr 12/16/18 16:15 12/17/18 09:54 Dextrose IVPB 100 mls/hr DAILY [facility] Administration Protocol Heparin Sodium (Porcine) 25, 500 mls @ 18 mls/hr 12/16/18 16:30 12/17/18 07: 52 000 unit/ Sodium Chloride IV 750 unit/hr TITR [facility] 15 mls/hr Titration Protocol 900 UNIT/HR Insulin Aspart 1 vial 12/15/18 17:30 12/17/18 05:46 Novolog Vial Sliding Scale - SQ 6 units Q6H [facility] Administration Protocol Metoprolol Tartrate 5 mg 12/14/18 19:52 12/15/18 23:26 Lopressor Injection - IVPUSH 5 mg Q4H PRN Administration HYPERTENSION Morphine Sulfate 4 mg 12/14/18 19:52 12/17/18 05:48 Morphine Sulfate IVPUSH 4 mg Q4H PRN Administration Pain Level 8 - 10 BREAKTHROUGH Mupirocin 1 applic 12/13/18 22:00 12/17/18 11:11 Bactroban Ointment (For Decolonization) - NS 12/18/18 21:59 1 applic BID [facility] Administration Ondansetron HCl 4 mg 12/14/18 19:52 Zofran Injection IVPUSH Q4H PRN NAUSEA AND/OR VOMITING ASSESSMENT/PLAN: 72 year old woman PMH DM2, HTN, CKD, nephrolithiasis s/p L ureteral stent, prolonged hospital course after SBO. Admitted to the ICU for rapid Afib w/ RVR and chest tightness. Neuro (& Psych): - A/O x4. No sedating gtts. Endocrine / Nephrology: - Consult Dr. Ram - T2DM. Continue insulin sliding scale. - CKD. Stable and will continue to trend. Cardiovascular: - Consult Dr. Boston - Rapid Afib. Rate controlled on Cardizem gtt and Metoprolol IVP PRN. Cannot transition to pill as pt is NPO per surgery. Will restart Digoxin. - HTN. Continue Clonidine patch. Holding Enalapril given rise in Cr. - HLD holding statin Pulm / Resp: - Stable on room air. - Encourage IS Gastrointestinal: - Consult Dr. Rodney - S/p laparotomy with extensive lysis of adhesions (2 hours), suture repair of right upper quadrant incisional hernia. Plan for transition to LTAC for 6 weeks before further evaluation by Dr. Rafael Calzada from [place]. Insurance denied transfer request yesterday. Will retry transfer after pt has been stable on cardiac drips for several days. - Dressing change planned for tomorrow afternoon. Genitourinary: - Consult Dr. Fleming. - Nephrolithiasis s/p left urethral stent - Suspect UTI given reported dysuria and pyuria, leukocyte esterase, and blood in UA this morning. Culture pending. Infectious Disease: - Consult Dr. Templeton. - Pt transitioned from Anceph to Ceftriaxone for empiric treatment of UTI while awaiting culture results. Musculoskeletal: - Encourage OOB FEN: - TPN per nephrology service Prophylaxis: - DVT: Heparin SQ - GI: Not indicated Dispo: Pt to remain in ICU on Diltiazem and Digoxin drips. Ronny Andersen MD, PGY1 ICU Consult Service Visit type - Emergency Visit Emergency Visit: No - New Patient This patient is new to me today: No - Critical Care Critical Care patient: Yes Total Critical Care Time (in minutes): 39 Critical Care Statement: The care of this patient involved high complexity decision making to prevent further life threatening deterioration of the patient 's condition and/or to evaluate & treat vital organ system(s) failure or risk of failure. Progress Note, Physician - Current Medication List Current Medications: Active Medications Acetaminophen (Ofirmev Injection -) 1,000 mg IVPB Q6H PRN PRN Reason: Pain Level 4-10 Last Admin: 12/14/18 22:38 Dose: 1,000 mg Chlorhexidine Gluconate (Hibiclens For Decolonization -) 1 applic TP HS [facility] Last Admin: 12/16/18 21:53 Dose: 1 applic Clonidine HCl (Catapres Tts Patch -) 0.2 mg TD Q7D@1000 [facility] Digoxin (Lanoxin Injection -) 0.25 mg IVPUSH Q6H [facility] Stop: 12/18/18 09:00 Last Admin: 12/17/18 08:39 Dose: 0.25 mg Diltiazem HCl (Cardizem Injection -) 10 mg IVPUSH Q4H PRN PRN Reason: TACHYCARDIA Diphenhydramine HCl (Benadryl Injection -) 25 mg IVPB Q6H PRN PRN Reason: ITCHING Fat Emulsion Intravenous (Intralipid -) 250 mls @ 20.833 mls/hr IV DAILY@2200 [facility] Last Admin: 12/15/18 21:36 Dose: 20.833 mls/hr Diltiazem HCl 125 mg/ Sodium (Chloride) 125 mls @ 5 mls/hr IVPB TITR [facility]; Protocol Last Admin: 12/17/18 05:46 Dose: 10 mg/hr, 10 mls/hr Potassium Phosphate 15 mm/Calcium Gluconate 1,000 mg/Magnesium Sulfate 2 gm/ Folic Acid 1 mg/ Multivitamins/Minerals 10 ml/ Potassium Chloride 40 meq/ Insulin Human Regular 26 units/ Sterile Water/ Amino Acids/ Dextrose 1,500 mls @ 62.5 mls/hr IVPB DAILY@1600 [facility] Last Admin: 12/16/18 16:00 Dose: 62.5 mls/hr Ceftriaxone Sodium 2 gm/ (Dextrose) 100 mls @ 100 mls/hr IVPB DAILY [facility]; Protocol Last Admin: 12/17/18 09:54 Dose: 100 mls/hr Heparin Sodium (Porcine) 25, (000 unit/ Sodium Chloride) 500 mls @ 18 mls/hr IV TITR [facility]; Protocol Last Titration: 12/17/18 07:52 Dose: 750 unit/hr, 15 mls/hr Insulin Aspart (Novolog Vial Sliding Scale -) 1 vial SQ Q6H [facility]; Protocol Last Admin: 12/17/18 05:46 Dose: 6 units Metoprolol Tartrate (Lopressor Injection -) 5 mg IVPUSH Q4H PRN PRN Reason: HYPERTENSION Last Admin: 12/15/18 23:26 Dose: 5 mg Morphine Sulfate (Morphine Sulfate) 4 mg IVPUSH Q4H PRN PRN Reason: Pain Level 8 - 10 BREAKTHROUGH Last Admin: 12/17/18 05:48 Dose: 4 mg Mupirocin (Bactroban Ointment (For Decolonization) -) 1 applic NS BID [facility] Stop: 12/18/18 21:59 Last Admin: 12/17/18 11:11 Dose: 1 applic Ondansetron HCl (Zofran Injection) 4 mg IVPUSH Q4H PRN PRN Reason: NAUSEA AND/OR VOMITING - Objective Vital Signs: Vital Signs Temperature 97.8 F 12/17/18 10:00 Pulse Rate 120 H 12/17/18 11:25 Respiratory Rate 17 12/17/18 11:25 Blood Pressure 152/49 L 12/17/18 11:25 O2 Sat by Pulse Oximetry (%) 97 12/17/18 09:00 Labs: CBC, BMP 12/17/18 05:30 12/17/18 05:30 INR, PTT INR 1.13 (0.83-1.09) H 12/17/18 05:30
--- NOTE | 2018-12-17 11:52 | PN ---
Teaching Attending Note Name of Resident: Ronny Andersen ATTENDING PHYSICIAN STATEMENT I saw and evaluated the patient. I reviewed the resident's note and discussed the case with the resident. I agree with the resident's findings and plan as documented. SUBJECTIVE: Patient seen and examined in the ICU. Remains on Cardizem IV for rate control. No CP or SOB. Minimal abdominal discomfort. Remains NPO. Intake & Output 12/14/18 12/15/18 12/16/18 12/17/18 23:59 23:59 23:59 23:59 Intake Total 1237.5 2110 1677 234 Output Total 1700 800 600 Balance 1237.5 410 877 -366 Last Vital Signs Temp Pulse Resp BP Pulse Ox 97.8 F 120 H 17 152/49 L 97 12/17/18 10:00 12/17/18 11:25 12/17/18 11:25 12/17/18 11:25 12/17/18 09:00 Active Medications Acetaminophen (Ofirmev Injection -) 1,000 mg IVPB Q6H PRN PRN Reason: Pain Level 4-10 Last Admin: 12/14/18 22:38 Dose: 1,000 mg Chlorhexidine Gluconate (Hibiclens For Decolonization -) 1 applic TP HS [facility] Last Admin: 12/16/18 21:53 Dose: 1 applic Clonidine HCl (Catapres Tts Patch -) 0.2 mg TD Q7D@1000 [facility] Digoxin (Lanoxin Injection -) 0.25 mg IVPUSH Q6H [facility] Stop: 12/18/18 09:00 Last Admin: 12/17/18 08:39 Dose: 0.25 mg Diltiazem HCl (Cardizem Injection -) 10 mg IVPUSH Q4H PRN PRN Reason: TACHYCARDIA Diphenhydramine HCl (Benadryl Injection -) 25 mg IVPB Q6H PRN PRN Reason: ITCHING Fat Emulsion Intravenous (Intralipid -) 250 mls @ 20.833 mls/hr IV DAILY@2200 [facility] Last Admin: 12/15/18 21:36 Dose: 20.833 mls/hr Diltiazem HCl 125 mg/ Sodium (Chloride) 125 mls @ 5 mls/hr IVPB TITR [facility]; Protocol Last Admin: 12/17/18 05:46 Dose: 10 mg/hr, 10 mls/hr Potassium Phosphate 15 mm/Calcium Gluconate 1,000 mg/Magnesium Sulfate 2 gm/ Folic Acid 1 mg/ Multivitamins/Minerals 10 ml/ Potassium Chloride 40 meq/ Insulin Human Regular 26 units/ Sterile Water/ Amino Acids/ Dextrose 1,500 mls @ 62.5 mls/hr IVPB DAILY@1600 [facility] Last Admin: 12/16/18 16:00 Dose: 62.5 mls/hr Ceftriaxone Sodium 2 gm/ (Dextrose) 100 mls @ 100 mls/hr IVPB DAILY [facility]; Protocol Last Admin: 12/17/18 09:54 Dose: 100 mls/hr Heparin Sodium (Porcine) 25, (000 unit/ Sodium Chloride) 500 mls @ 18 mls/hr IV TITR [facility]; Protocol Last Titration: 12/17/18 07:52 Dose: 750 unit/hr, 15 mls/hr Insulin Aspart (Novolog Vial Sliding Scale -) 1 vial SQ Q6H [facility]; Protocol Last Admin: 12/17/18 05:46 Dose: 6 units Metoprolol Tartrate (Lopressor Injection -) 5 mg IVPUSH Q4H PRN PRN Reason: HYPERTENSION Last Admin: 12/15/18 23:26 Dose: 5 mg Morphine Sulfate (Morphine Sulfate) 4 mg IVPUSH Q4H PRN PRN Reason: Pain Level 8 - 10 BREAKTHROUGH Last Admin: 12/17/18 05:48 Dose: 4 mg Mupirocin (Bactroban Ointment (For Decolonization) -) 1 applic NS BID [facility] Stop: 12/18/18 21:59 Last Admin: 12/17/18 11:11 Dose: 1 applic Ondansetron HCl (Zofran Injection) 4 mg IVPUSH Q4H PRN PRN Reason: NAUSEA AND/OR VOMITING Gen: awake,alert, NAD HEENT: NCAT, (-) Pallor, (-) Icterus PULM: diminished bases, no wheezes CV: Afib ABD: soft, Non tender, wound vac in place , hypoactive BS EXT: dependent edema Neuro: non focal Laboratory Results - last 24 hr 12/16/18 12/16/18 12/16/18 12:02 18:00 21:46 WBC RBC Hgb Hct MCV MCH MCHC RDW Plt Count MPV Absolute Neuts (auto) Neutrophils % Lymphocytes % Monocytes % Eosinophils % Basophils % Nucleated RBC % Hypochromia Platelet Estimate Polychromasia Poikilocytosis Anisocytosis Microcytosis Macrocytosis PT with INR INR PTT (Actin FS) Sodium Potassium Chloride Carbon Dioxide Anion Gap BUN Creatinine Creat Clearance w eGFR POC Glucometer 270 204 130 Random Glucose Calcium Phosphorus Magnesium Total Bilirubin AST ALT Alkaline Phosphatase Total Protein Albumin 12/17/18 12/17/18 12/17/18 00:03 05:28 05:30 WBC 4.7 RBC 3.21 L Hgb 8.7 L Hct 26.2 L MCV 81.7 MCH 27.0 MCHC 33.1 RDW 21.0 H Plt Count 256 MPV 8.1 Absolute Neuts (auto) 2.8 Neutrophils % 60.0 Lymphocytes % 23.0 Monocytes % 13.4 H Eosinophils % 3.0 Basophils % 0.6 Nucleated RBC % 0 Hypochromia 0 Platelet Estimate Normal Polychromasia 0 Poikilocytosis 0 Anisocytosis 1+ Microcytosis 1+ Macrocytosis 0 PT with INR INR PTT (Actin FS) > 400.0 H Sodium Potassium Chloride Carbon Dioxide Anion Gap BUN Creatinine Creat Clearance w eGFR POC Glucometer 204 Random Glucose Calcium Phosphorus Magnesium Total Bilirubin AST ALT Alkaline Phosphatase Total Protein Albumin 12/17/18 12/17/18 12/17/18 05:30 05:30 11:18 WBC RBC Hgb Hct MCV MCH MCHC RDW Plt Count MPV Absolute Neuts (auto) Neutrophils % Lymphocytes % Monocytes % Eosinophils % Basophils % Nucleated RBC % Hypochromia Platelet Estimate Polychromasia Poikilocytosis Anisocytosis Microcytosis Macrocytosis PT with INR 13.40 H INR 1.13 H PTT (Actin FS) 32.7 Sodium 139 Potassium 4.3 Chloride 104 Carbon Dioxide 27 Anion Gap 8 BUN 43 H Creatinine 1.2 Creat Clearance w eGFR 43.80 POC Glucometer 263 Random Glucose 229 H Calcium 8.4 L Phosphorus 3.6 Magnesium 2.2 Total Bilirubin 0.3 AST 21 ALT 12 L Alkaline Phosphatase 121 H Total Protein 6.3 L Albumin 1.7 L Problem List - Problems (1) Intestinal adhesions with partial obstruction Assessment/Plan: Code(s): K56.51 - INTESTINAL ADHESIONS [BANDS], WITH PARTIAL OBSTRUCTION (2) Infection following a procedure, superficial incisional surgical site, initial encounter Assessment/Plan: Code(s): T81.41XA - INFCT FOL A PROC, SUPERFIC INCISIONAL SURGICAL SITE, INIT (3) Enterocutaneous fistula Assessment/Plan: Code(s): K63.2 - FISTULA OF INTESTINE (4) Persistent postprocedural fistula, initial encounter Assessment/Plan: Code(s): T81.83XA - PERSISTENT POSTPROCEDURAL FISTULA, INITIAL ENCOUNTER (5) Incisional hernia, without obstruction or gangrene Code(s): K43.2 - INCISIONAL HERNIA WITHOUT OBSTRUCTION OR GANGRENE (6) Atrial fibrillation with RVR Assessment/Plan: Code(s): I48.91 - UNSPECIFIED ATRIAL FIBRILLATION (7) Hypertension Assessment/Plan: Code(s): I10 - ESSENTIAL (PRIMARY) HYPERTENSION Qualifiers: Hypertension type: essential hypertension Qualified Code(s): I10 - Essential (primary) hypertension (8) Diabetes mellitus type 2 in obese Assessment/Plan: Code(s): E11.69 - TYPE 2 DIABETES MELLITUS WITH OTHER SPECIFIED COMPLICATION; E66.9 - OBESITY, UNSPECIFIED (9) S/P ureteral stent placement Assessment/Plan: Code(s): Z96.0 - PRESENCE OF UROGENITAL IMPLANTS (10) Gout Assessment/Plan: Code(s): M10.9 - GOUT, UNSPECIFIED Qualifiers: Gout site: toe Gout etiology: unspecified cause Chronicity: unspecified Laterality: unspecified laterality Qualified Code(s): M10.9 - Gout, unspecified (11) CKD (chronic kidney disease) stage 3, GFR 30-59 ml/min Assessment/Plan: Code(s): N18.3 - CHRONIC KIDNEY DISEASE, STAGE 3 (MODERATE) IMP: Rapid Afib, now rate controlled on IV Cardizem drip HTN CKD Nephrolithiasis s/p L ureteral stent TPN per Renal Incentive Spirometry O2 as needed VTE prophylaxis NPO per surgery, would check if PO rate controlling meds can be taken AC Patient is being assessed for LTAC placement Dr Saunders
--- NOTE | 2018-12-17 12:17 | PN ---
Progress Note (short form) - Note Progress Note: Renal follow up for CHACHA Pt seen and examined in the ICU awake and alert ambulating with PT denies any sob, cp no N/V/D on TPN Vital Signs Temperature 97.8 F 12/17/18 10:00 Pulse Rate 123 H 12/17/18 12:00 Respiratory Rate 17 12/17/18 12:00 Blood Pressure 122/78 12/17/18 12:00 O2 Sat by Pulse Oximetry (%) 97 12/17/18 09:00 Intake & Output 12/14/18 12/15/18 12/16/18 12/17/18 23:59 23:59 23:59 23:59 Intake Total 1237.5 2110 1677 234 Output Total 1700 800 600 Balance 1237.5 410 877 -366 NAD tachycardic Dec BS slight abd tenderness no edema CBC, BMP 12/17/18 05:30 12/17/18 05:30 Current Medications Acetaminophen (Ofirmev Injection -) 1,000 mg IVPB Q6H PRN PRN Reason: Pain Level 4-10 Last Admin: 12/14/18 22:38 Dose: 1,000 mg Chlorhexidine Gluconate (Hibiclens For Decolonization -) 1 applic TP HS [facility] Last Admin: 12/16/18 21:53 Dose: 1 applic Clonidine HCl (Catapres Tts Patch -) 0.2 mg TD Q7D@1000 [facility] Digoxin (Lanoxin Injection -) 0.25 mg IVPUSH Q6H [facility] Stop: 12/18/18 09:00 Last Admin: 12/17/18 08:39 Dose: 0.25 mg Diltiazem HCl (Cardizem Injection -) 10 mg IVPUSH Q4H PRN PRN Reason: TACHYCARDIA Diphenhydramine HCl (Benadryl Injection -) 25 mg IVPB Q6H PRN PRN Reason: ITCHING Fat Emulsion Intravenous (Intralipid -) 250 mls @ 20.833 mls/hr IV DAILY@2200 [facility] Last Admin: 12/15/18 21:36 Dose: 20.833 mls/hr Diltiazem HCl 125 mg/ Sodium (Chloride) 125 mls @ 5 mls/hr IVPB TITR [facility]; Protocol Last Admin: 12/17/18 05:46 Dose: 10 mg/hr, 10 mls/hr Potassium Phosphate 15 mm/Calcium Gluconate 1,000 mg/Magnesium Sulfate 2 gm/ Folic Acid 1 mg/ Multivitamins/Minerals 10 ml/ Potassium Chloride 40 meq/ Insulin Human Regular 26 units/ Sterile Water/ Amino Acids/ Dextrose 1,500 mls @ 62.5 mls/hr IVPB DAILY@1600 [facility] Last Admin: 12/16/18 16:00 Dose: 62.5 mls/hr Ceftriaxone Sodium 2 gm/ (Dextrose) 100 mls @ 100 mls/hr IVPB DAILY [facility]; Protocol Last Admin: 12/17/18 09:54 Dose: 100 mls/hr Heparin Sodium (Porcine) 25, (000 unit/ Sodium Chloride) 500 mls @ 18 mls/hr IV TITR [facility]; Protocol Last Titration: 12/17/18 07:52 Dose: 750 unit/hr, 15 mls/hr Insulin Aspart (Novolog Vial Sliding Scale -) 1 vial SQ Q6H [facility]; Protocol Last Admin: 12/17/18 05:46 Dose: 6 units Metoprolol Tartrate (Lopressor Injection -) 5 mg IVPUSH Q4H PRN PRN Reason: HYPERTENSION Last Admin: 12/15/18 23:26 Dose: 5 mg Morphine Sulfate (Morphine Sulfate) 4 mg IVPUSH Q4H PRN PRN Reason: Pain Level 8 - 10 BREAKTHROUGH Last Admin: 12/17/18 05:48 Dose: 4 mg Mupirocin (Bactroban Ointment (For Decolonization) -) 1 applic NS BID [facility] Stop: 12/18/18 21:59 Last Admin: 12/17/18 11:11 Dose: 1 applic Ondansetron HCl (Zofran Injection) 4 mg IVPUSH Q4H PRN PRN Reason: NAUSEA AND/OR VOMITING 72 year old woman with hx of CKD, Nephrolithiasis, DM who presented with Abd pain secondary to SBO s/p surgical intervention with CHACHA. #Recurrent CHACHA #SBO s/p OR #enterocutaneous fistula #Prolonged NPO #Hypoalbuminema #Abd wound infection #LE edema #Chest Pain/Tightness Cr now 1.2 continue to trend Will continue TPN as patient remains NPO, volume of 1.5L daily Insulin increased to 32 units as BS elevated Lipid to be given every other day on IV cardizem as per cardiology Continue clonidine patch Thank you Ethan Ram DO
--- NOTE | 2018-12-17 12:22 | PN ---
Progress Note, Physician History of Present Illness: POD27 s/p extensive lysis of intestinal adhesions for developing SBO, with suture repair of small RUQ incisional hernia from inside, with findings of previous intestinal reconstruction/hepaticojejunostomy, done years ago after post-cholecystectomy complications per pt. Also with likely PTFE mesh in situ from subsequent incarcerated umbilical hernia repair, was split in upper aspect for laparotomy. Pt postop course complicated by new onset afib with RVR and subsequent identification of enterocutaneous fistula in wound initially opened for spontaneous drainage. HR had been controlled and in sinus on po meds. She had previously tolerated soft diabetic diet, though with marginal po intake. She is now complete NPO with TPN and IV meds only, via PICC. Wound/ fistula management with VAC (white foam at base over necrotic fascia, black over that). Orangey/light brown enteric content in wound and VAC canister, low output. Has been ambulating, voiding, last BM few days ago after enema. Abd pain at times, managed with tylenol, narcotics as breakthrough. Had CTA chest several days ago with no evidence of PE, very small pleural effusion. Was transferred to ICU with recurrence of afib with RVR for cardizem drip. Seen and examined sitting up in chair. VAC intact with about 400ml brown/ orangey fluid in canister. Ambulating periodically. Not needing pain medicine hardly outside of VAC changes. She had some burning with urination late in weekend into yesterday. UA showed +LE, wbc, some blood, culture growing yeast- like organism. Ceftriaxone started by ID for possible UTI pending cx results. Heparin drip started yesterday after VAC change, since pt cannot take PO meds; still being titrated. Today, digoxin being started with loading doses. Renal managing TPN with insulin in bag, lipids every other day. - Current Medication List Current Medications: Active Medications Acetaminophen (Ofirmev Injection -) 1,000 mg IVPB Q6H PRN PRN Reason: Pain Level 4-10 Last Admin: 12/14/18 22:38 Dose: 1,000 mg Chlorhexidine Gluconate (Hibiclens For Decolonization -) 1 applic TP HS [facility] Last Admin: 12/16/18 21:53 Dose: 1 applic Clonidine HCl (Catapres Tts Patch -) 0.2 mg TD Q7D@1000 [facility] Digoxin (Lanoxin Injection -) 0.25 mg IVPUSH Q6H [facility] Stop: 12/18/18 09:00 Last Admin: 12/17/18 08:39 Dose: 0.25 mg Diltiazem HCl (Cardizem Injection -) 10 mg IVPUSH Q4H PRN PRN Reason: TACHYCARDIA Diphenhydramine HCl (Benadryl Injection -) 25 mg IVPB Q6H PRN PRN Reason: ITCHING Fat Emulsion Intravenous (Intralipid -) 250 mls @ 20.833 mls/hr IV DAILY@2200 [facility] Last Admin: 12/15/18 21:36 Dose: 20.833 mls/hr Diltiazem HCl 125 mg/ Sodium (Chloride) 125 mls @ 5 mls/hr IVPB TITR [facility]; Protocol Last Admin: 12/17/18 05:46 Dose: 10 mg/hr, 10 mls/hr Potassium Phosphate 15 mm/Calcium Gluconate 1,000 mg/Magnesium Sulfate 2 gm/ Folic Acid 1 mg/ Multivitamins/Minerals 10 ml/ Potassium Chloride 40 meq/ Insulin Human Regular 26 units/ Sterile Water/ Amino Acids/ Dextrose 1,500 mls @ 62.5 mls/hr IVPB DAILY@1600 [facility] Last Admin: 12/16/18 16:00 Dose: 62.5 mls/hr Ceftriaxone Sodium 2 gm/ (Dextrose) 100 mls @ 100 mls/hr IVPB DAILY [facility]; Protocol Last Admin: 12/17/18 09:54 Dose: 100 mls/hr Heparin Sodium (Porcine) 25, (000 unit/ Sodium Chloride) 500 mls @ 18 mls/hr IV TITR [facility]; Protocol Last Titration: 12/17/18 07:52 Dose: 750 unit/hr, 15 mls/hr Insulin Aspart (Novolog Vial Sliding Scale -) 1 vial SQ Q6H [facility]; Protocol Last Admin: 12/17/18 05:46 Dose: 6 units Metoprolol Tartrate (Lopressor Injection -) 5 mg IVPUSH Q4H PRN PRN Reason: HYPERTENSION Last Admin: 12/15/18 23:26 Dose: 5 mg Morphine Sulfate (Morphine Sulfate) 4 mg IVPUSH Q4H PRN PRN Reason: Pain Level 8 - 10 BREAKTHROUGH Last Admin: 12/17/18 05:48 Dose: 4 mg Mupirocin (Bactroban Ointment (For Decolonization) -) 1 applic NS BID [facility] Stop: 12/18/18 21:59 Last Admin: 12/17/18 11:11 Dose: 1 applic Ondansetron HCl (Zofran Injection) 4 mg IVPUSH Q4H PRN PRN Reason: NAUSEA AND/OR VOMITING - Objective Vital Signs: Vital Signs Temperature 97.8 F 12/17/18 10:00 Pulse Rate 120 H 12/17/18 11:25 Respiratory Rate 17 12/17/18 11:25 Blood Pressure 152/49 L 12/17/18 11:25 O2 Sat by Pulse Oximetry (%) 97 12/17/18 09:00 Vital Signs Period Temp Pulse Resp BP Sys/Pascual Pulse Ox Last 24 Hr 97.1 F-98.4 F 93-123 - 98-152/49-118 97-97 Constitutional: Yes: No Distress, Calm, Obese Eyes: Yes: Conjunctiva Clear, EOM Intact HENT: Yes: Atraumatic, Normocephalic Gastrointestinal: Yes: Soft, Abdomen, Obese, Tenderness (mild incisional and LUQ , no keiry/guard). No: Distention Extremities: No: Cool, Cyanosis Integumentary: Yes: Incision (midline w/VAC). No: Jaundice, Rash Wound/Incision: Yes: Dressing Dry and Intact (VAC with good seal at -125mm continuous pressure), Draining (brown/orange in canister, about 50ml since yesterday's change). No: Dressing Removed Neurological: Yes: Alert, Oriented Labs: CBC, BMP 12/17/18 05:30 12/17/18 05:30 INR, PTT INR 1.13 (0.83-1.09) H 12/17/18 05:30 Microbiology 12/16/18 10:06 Urine Culture - Final Urine - Urine Clean Catch Yeast Like Organism CMP Sodium 139 mmol/L (136-145) 12/17/18 05:30 Potassium 4.3 mmol/L (3.5-5.1) 12/17/18 05:30 Chloride 104 mmol/L (98-107) 12/17/18 05:30 Carbon Dioxide 27 mmol/L (21-32) 12/17/18 05:30 Anion Gap 8 MMOL/L (8-16) 12/17/18 05:30 BUN 43 mg/dL (7-18) H 12/17/18 05:30 Creatinine 1.2 mg/dL (0.55-1.3) 12/17/18 05:30 Creat Clearance w eGFR 43.80 (>60) 12/17/18 05:30 POC Glucometer 263 UNITS (80-120) 12/17/18 11:18 Random Glucose 229 mg/dL (74-106) H 12/17/18 05:30 Calcium 8.4 mg/dL (8.5-10.1) L 12/17/18 05:30 Phosphorus 3.6 mg/dL (2.5-4.9) 12/17/18 05:30 Magnesium 2.2 mg/dL (1.8-2.4) 12/17/18 05:30 Total Bilirubin 0.3 mg/dL (0.2-1) 12/17/18 05:30 AST 21 U/L (15-37) 12/17/18 05:30 ALT 12 U/L (13-61) L 12/17/18 05:30 Alkaline Phosphatase 121 U/L (45-117) H 12/17/18 05:30 Total Protein 6.3 g/dl (6.4-8.2) L 12/17/18 05:30 Albumin 1.7 g/dl (3.4-5.0) L 12/17/18 05:30 Prealbumin 8.5 mg/dl (20-40) L 12/11/18 12:25 Problem List - Problems (1) Intestinal adhesions with partial obstruction Assessment/Plan: POD27 s/p extensive lysis of adhesions and RUQ incisional hernia repair s/p hepaticojejunostomy in past with intestinal reconstruction - with dilated/ stagnant loop of anastomotic area had small enterotomy with small yellow fluid leakage repaired in proximal SB ( hepatic limb?) up under RUQ scar, near incisional hernia, minimal contamination POD10 s/p complex I&D of midline postop wound infection low output enterocutaneous fistula present under midportion of midline wound VAC changed yesterday, with white foam in base, good seal maintained COMPLETE NPO with TPN, IV meds only via PICC line from IR pain meds prn - tylenol first line, morphine as needed breakthrough and for dressing changes monitor labs, lytes, glucose TPN per renal check prealbumin in am discussed with Debby Andersen of ICU team Code(s): K56.51 - INTESTINAL ADHESIONS [BANDS], WITH PARTIAL OBSTRUCTION (2) Infection following a procedure, superficial incisional surgical site, initial encounter Assessment/Plan: culture grew mostly sensitive E. coli, E. faecalis, yeast-like organism Code(s): T81.41XA - INFCT FOL A PROC, SUPERFIC INCISIONAL SURGICAL SITE, INIT (3) Enterocutaneous fistula Assessment/Plan: in context of PTFE mesh in situ in field/wound and underlying abnormal intestinal anatomy will need mesh removal, fistula takedown, reconstruction of abdominal wall discussed with Dr. Calzada at [place] he is ok with transfer to [facility] for complex wound care ([employer] VAC with white foam/ black foam), TPN and telemetry needs he would then see her as outpatient in his office from [facility] at 6 wks postop to decide when to have her transferred to [place] for intervention Code(s): K63.2 - FISTULA OF INTESTINE (4) Persistent postprocedural fistula, initial encounter Assessment/Plan: enterocutaneous fistula continue VAC - white foam in wound base, black over VAC changes 3x weekly - next tomorrow TPN/complete NPO plan is transfer to [facility] for ongoing care, until it is time for evaluation by Dr. Rafael Calzada from [place] (6 wks postop) might be able [facility] two to see if fistula output increases Code(s): T81.83XA - PERSISTENT POSTPROCEDURAL FISTULA, INITIAL ENCOUNTER (5) Incisional hernia, without obstruction or gangrene Code(s): K43.2 - INCISIONAL HERNIA WITHOUT OBSTRUCTION OR GANGRENE (6) Atrial fibrillation with RVR Assessment/Plan: converted back to ALL IV meds, completely NPO cardiology following in ICU for cardizem drip and rate control digoxin being started maintain lytes in normal range heparin drip started while NPO/Eliquis on hold still titrating for therapeutic PTT This patient is critically ill. Time spent reviewing chart, examining patient, talking with providers and/or family and documentation is 35 minutes. Code(s): I48.91 - UNSPECIFIED ATRIAL FIBRILLATION (7) Hypertension Assessment/Plan: cardio managing, IV meds with clonidine patch Code(s): I10 - ESSENTIAL (PRIMARY) HYPERTENSION Qualifiers: Hypertension type: essential hypertension Qualified Code(s): I10 - Essential (primary) hypertension (8) Diabetes mellitus type 2 in obese Assessment/Plan: endo had seen earlier glucose management along with TPN - insulin added to TPN, renal managing Code(s): E11.69 - TYPE 2 DIABETES MELLITUS WITH OTHER SPECIFIED COMPLICATION; E66.9 - OBESITY, UNSPECIFIED (9) S/P ureteral stent placement Assessment/Plan: left ureteral stent in place; management per uro - pt may need laser lithotripsy with stent removal?, off anticoagulation mild increase in left hydronephrosis on last CT now with possible UTI - yeast on culture medicine to re-call urology ID also back on board Code(s): Z96.0 - PRESENCE OF UROGENITAL IMPLANTS (10) Gout Assessment/Plan: home med on hold Code(s): M10.9 - GOUT, UNSPECIFIED Qualifiers: Gout site: toe Gout etiology: unspecified cause Chronicity: unspecified Laterality: unspecified laterality Qualified Code(s): M10.9 - Gout, unspecified (11) CKD (chronic kidney disease) stage 3, GFR 30-59 ml/min Assessment/Plan: nephrology following and managing TPN daily labs Cr near baseline, BUN elevated Code(s): N18.3 - CHRONIC KIDNEY DISEASE, STAGE 3 (MODERATE)
--- NOTE | 2018-12-17 13:49 | CON.GU ---
Consult Consult Specialty:: Urology Reason for Consultation:: Possible infection. Indwelling Stent Left for hydro - History of Present Illness Chief Complaint: Pt. was admitted to the hospital for abdominal pain. - History Source History Provided By: Patient Limitations to Obtaining History: No Limitations - Past Medical History [employer]ATOR: No: Alzheimer's Cardio/Vascular: Yes: HTN, Hyperlipdemia Gastrointestinal: Yes: Diverticulosis, Other Hepatobiliary: Yes: Cholelithiasis, Choledocholithiasis (p bile duct surgery) Renal/: Yes: Renal Inusuff, Renal Calculi (possible), UTI (currently being treated as), Other (h/o pyelonephritis. 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) ...: No Infectious Disease: No: AIDS Psych: No: Addictions Musculoskeletal: Yes: Chronic low back pain (s/p low back surgery/disc issues in past) Rheumatology: Yes: Gout Endocrine: Yes: Diabetes Mellitus, Other (adrenal adenoma) - Past Surgical History Past Surgical History: Yes: Cholecystectomy, Colonoscopy, Hernia Repair (ventral /?umbilical with mesh years ago), Hysterectomy, Joint Replacement (bilateral knee total knee replacement), Laminectomy (Lumbar spine), Stent (left ureteral ( placed early this month in [place])), Upper Endoscopy - Alcohol/Substance Use Hx Alcohol Use: No History of Substance Use: reports: None - Smoking History Smoking history: Never smoked Have you smoked in the past 12 months: No Aproximately how many cigarettes per day: 0 - Social History Usual Living Arrangement: Alone (brother lives with her) ADL: Independent (in apartment with 3-4 steps to enter) 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[employer], 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 History of Recent Travel: Yes ([place], [place] from June to 11/06/18) Home Medications - Allergies Allergies/Adverse Reactions: Allergies Allergy/AdvReac Type Severity Reaction Status Date / Time latex Allergy Severe Swelling Verified 11/16/18 13:55 insulin lispro [From Humalog] Allergy Intermediate Generalized Verified 13:55 rash and itching naproxen [From Naprosyn] Allergy Swelling Verified 11/16/18 13:55 oxaprozin [From Daypro] Allergy Swelling Verified 11/16/18 13:55 saxagliptin HCl Allergy leg edema Verified 11/16/18 13:55 [From Onglyza] latex Allergy Severe Uncoded 11/16/18 13:55 Mushrooms Allergy Uncoded 11/16/18 13:55 naproxen Allergy Uncoded 11/16/18 13:55 - Home Medications Home Medications: Ambulatory Orders Allopurinol [Zyloprim -] 100 mg PO DAILY 12/20/16 Atorvastatin Calcium 10 mg PO DAILY 11/16/18 Allopurinol [Zyloprim -] 100 mg PO DAILY tablet 12/06/18 Apixaban [Eliquis -] 5 mg PO BID #30 tablet MDD 2 12/06/18 Diltiazem Cd [Cardizem Cd -] 360 mg PO DAILY #30 cap.cd.24h MDD 2 12/06/18 Insulin (Levemir) [Levemir Vial] 20 units SQ HS #100 units MDD 20 12/06/18 Magnesium Oxide [Mag-Ox -] 400 mg PO BID #7 tablet MDD 2 12/06/18 Metoclopramide HCl [Reglan -] 10 mg PO TIDAC #30 tablet MDD 3 12/06/18 Simethicone [Mylicon -] 80 mg PO TID #30 tab.chew MDD 3 12/06/18 oxyCODONE HCL [Roxicodone -] 5 mg PO Q6H PRN #7 tablet MDD 3 12/06/18 propRANOLol HCL [Inderal LA -] 60 mg PO DAILY #30 capsule.er MDD 1 12/06/18 Ferrous Sulfate [Feosol] 325 mg PO DAILY #30 tablet 12/08/18 Family Disease History - Family Disease History Family Disease History: Other: Father ( 84), Mother (lived to 96) Other Family History: NO IBD or cancer, Pat aunt had DM Physical Exam- Vital Signs: Vital Signs Temperature 97.8 F 12/17/18 10:00 Pulse Rate 123 H 12/17/18 12:00 Respiratory Rate 17 12/17/18 12:00 Blood Pressure 122/78 12/17/18 12:00 O2 Sat by Pulse Oximetry (%) 97 12/17/18 09:00 Labs: CBC, BMP 12/17/18 05:30 12/17/18 05:30 Assessment/Plan Pt well known to our practice. She was seen many times and last Ct Scan showed indwelling left ureteral stent. At present she is in ICU. The pt.'s urine culture is pending. Possibility of entero cutaneous fistula is being considered. When her medical condition improves, will consider changing the stent. Thank you
[2018-12-17] MEDS ORDERED: PT OWN MED DRAWER 7, Y5N ONE (16:21)
[2018-12-17] MEDS: [UNRECOGNIZED DRUG - OTHER] IVPB SCH (17:34)
[2018-12-17] MEDS: MAGNESIUM SULFATE IVPB SCH (17:34)
[2018-12-17] MEDS: CALCIUM GLUCONATE IVPB SCH (17:34)
[2018-12-17] MEDS: POTASSIUM PHOSPHATE IVPB SCH (17:34)
[2018-12-17] MEDS: HEPARIN - 25,000 UNIT in SODIUM CHLORIDE 495 ML IV SCH (20:29)
[2018-12-17] MEDS: CHLORHEXIDINE GLUCONATE 4% CLEANSER FOR DECOLONIZATION TP SCH (21:54)
[2018-12-18] MEDS ORDERED: PT OWN MED DRAWER 7, Y5N ONE ×2 (04:39→17:38)
[2018-12-18] MEDS: HEPARIN - 25,000 UNIT in SODIUM CHLORIDE 495 ML IV SCH ×2 (04:46→16:33)
[2018-12-18] MEDS: DIGOXIN 0.5 MG/2 ML AMPUL IVPUSH SCH ×2 (04:48→08:03)
[2018-12-18] MEDS: ACETAMINOPHEN 1000 MG/100 ML VIAL (NON FORMULARY) IVPB PRN ×2 (05:15→17:15)
[2018-12-18] MEDS: INSULIN SLIDING SCALE (NOVOLOG) 1 VIAL SQ SCH ×4 (06:12→23:00)
[2018-12-18 06:53] LABS: BASO % 0.6 % (0-2.0); HEMATOCRIT 27.4 % (32.4-45.2); HEMOGLOBIN 8.9 GM/dL (10.7-15.3); LYMPH % 25.9 % (8-40); MCH 26.7 pg (25.7-33.7); MCHC 32.5 g/dl (32.0-36.0); MEAN CELL VOLUME 82.2 fl (80-96); MEAN PLT VOLUME 7.9 fl (7.5-11.1); MONO % 15.2 % (3.8-10.2); NEUT % 55.3 % (42.8-82.8); PLATELET COUNT 245 K/MM3 (134-434); RBC 3.33 M/mm3 (3.60-5.2); RDW 21.2 % (11.6-15.6); WHITE BLOOD COUNT 4.7 K/mm3 (4.0-10.0)
[2018-12-18 07:05] LABS: ALBUMIN 1.8 g/dl (3.4-5.0); ALK PHOS 134 U/L (45-117); ANION GAP 6 MMOL/L (8-16); BILIRUBIN,TOTAL 0.3 mg/dL (0.2-1); BLOOD UREA NITROGEN 43 mg/dL (7-18); CALCIUM 8.3 mg/dL (8.5-10.1); CHLORIDE 106 mmol/L (98-107); CO2 27 mmol/L (21-32); CREATININE 1.3 mg/dL (0.55-1.3); GLUCOSE,RANDOM 179 mg/dL (74-106); MAGNESIUM 2.3 mg/dL (1.8-2.4); PHOSPHOROUS 3.2 mg/dL (2.5-4.9); POTASSIUM 4.4 mmol/L (3.5-5.1); PREALBUMIN 14.4 mg/dl (20-40); SGOT/AST 21 U/L (15-37); SGPT/ALT 12 U/L (13-61); SODIUM 140 mmol/L (136-145); TOT PROT 6.5 g/dl (6.4-8.2); TRIGLYCERIDES 225 mg/dL (0-150)
--- NOTE | 2018-12-18 09:28 | PN ---
Progress Note (short form) - Note Progress Note: s: no cp sob palps dizzy o: Vital Signs Period Temp Pulse Resp BP Sys/Pascual Pulse Ox Last 24 Hr 97.2 F-98.3 F 60-123 13-23 93-152/49-113 98 Constitutional: Yes: Well Nourished, No Distress, Calm Eyes: Yes: Conjunctiva Clear Respiratory: Yes: Regular, CTA Bilaterally Gastrointestinal: Yes: Tenderness Cardiovascular: Yes: irreg JVD: No Heart Sounds: Yes: S1, S2 Murmur: No: Systolic Murmur Extremities: No: Cold Edema: No Peripheral Pulses: 2+ Left Doralis Pedis, 2+ Right Dorsalis Pedis Integumentary: No: Jaundice Neurological: Yes: Alert, Oriented Psychiatric: No: Agitated Current Medications Acetaminophen (Ofirmev Injection -) 1,000 mg IVPB Q6H PRN PRN Reason: Pain Level 4-10 Last Admin: 12/18/18 05:15 Dose: 1,000 mg Chlorhexidine Gluconate (Hibiclens For Decolonization -) 1 applic TP HS [facility] Last Admin: 12/17/18 21:54 Dose: 1 applic Clonidine HCl (Catapres Tts Patch -) 0.2 mg TD Q7D@1000 [facility] Diltiazem HCl (Cardizem Injection -) 10 mg IVPUSH Q4H PRN PRN Reason: TACHYCARDIA Diphenhydramine HCl (Benadryl Injection -) 25 mg IVPB Q6H PRN PRN Reason: ITCHING Diltiazem HCl 125 mg/ Sodium (Chloride) 125 mls @ 5 mls/hr IVPB TITR [facility]; Protocol Last Titration: 12/18/18 08:05 Dose: 0 mg/hr, 0 mls/hr Ceftriaxone Sodium 2 gm/ (Dextrose) 100 mls @ 100 mls/hr IVPB DAILY [facility]; Protocol Last Admin: 12/17/18 09:54 Dose: 100 mls/hr Heparin Sodium (Porcine) 25, (000 unit/ Sodium Chloride) 500 mls @ 18 mls/hr IV TITR [facility]; Protocol Last Titration: 12/18/18 07:16 Dose: 1,200 unit/hr, 24 mls/hr Potassium Phosphate 15 mm/Calcium Gluconate 1,000 mg/Magnesium Sulfate 2 gm/ Folic Acid 1 mg/ Multivitamins/Minerals 10 ml/ Potassium Chloride 30 meq/ Insulin Human Regular 32 units/ Sterile Water/ Amino Acids/ Dextrose 1,500 mls @ 62.5 mls/hr IVPB DAILY@1600 [facility] Last Admin: 12/17/18 17:34 Dose: 62.5 mls/hr Fat Emulsion Intravenous (Intralipid -) 250 mls @ 20.833 mls/hr IV Q48H [facility] Insulin Aspart (Novolog Vial Sliding Scale -) 1 vial SQ Q6H [facility]; Protocol Last Admin: 12/18/18 06:12 Dose: Not Given Metoprolol Tartrate (Lopressor Injection -) 5 mg IVPUSH Q4H PRN PRN Reason: HYPERTENSION Last Admin: 12/15/18 23:26 Dose: 5 mg Morphine Sulfate (Morphine Sulfate) 4 mg IVPUSH Q4H PRN PRN Reason: Pain Level 8 - 10 BREAKTHROUGH Last Admin: 12/17/18 21:54 Dose: 4 mg Mupirocin (Bactroban Ointment (For Decolonization) -) 1 applic NS BID [facility] Stop: 12/18/18 21:59 Last Admin: 12/17/18 21:54 Dose: 1 applic Ondansetron HCl (Zofran Injection) 4 mg IVPUSH Q4H PRN PRN Reason: NAUSEA AND/OR VOMITING Assessment/Plan EKG: initial sinus, LVH, first deg AVB EKG 11/22 afib with RVR rate 135 bpm echo 11/2016 LV mildly dilated, nl LV function, sigmoid septum, RV nl, LA severely dilated, RA mildly enlarged, mild MR, mild TR, at least mild pulm HTN, RVSP at least 42 mmHg CTA chest 12/13 no PE, increase in size of R pleural effusion (small) and stable L pleural effusion tele:afib rate 80s-100s afib - in post op setting after ex lap, PAN. - 11/25: converted spontaneously now to sinus - 11/26: overnight converted back to afib with RVR, dilt gtt was started, initially poor IV access now has been running, no improvement with additional lopressor 5 mg IV this morning. replete K and Mg, digoxin 0.125 mg IV x 1 ordered, cont dilt gtt - 11/27: started diltiazem 60 mg PO Q6H, increase to 90 mg Q6H, start propranolol 20 mg Q6H, uptitrate as tolerated, wean dilt gtt as tolerated -11/28-: rate controlled on po meds. eliquis started. -12/02-: sinus. continue diltiazem CD 360 mg daily, propranolol LA 60 mg daily. -12/07: soft BPs, hgb trending down. surgery f/u. hold eliquis until anemia stabilizes. -12/08: Hgb 7.8, agree with holding DOAC until hgb more stable - 12/09-: holding eliquis continue short acting diltiazem po, hr stable. long acting dilt and inderal on hold due to NPO. - 12/13-: monitoring in ICU for afib with RVR, dilt gtt and PRN lopressor. replete lytes for K >4.0 and Mg >2.0 - 12/15: occasionally in sinus, rate ok in afib with occasional rvr. continue dilt gtt. hold on digoxin as Cr rising, d/w renal. - 12/17: on dilt gtt, receiving IV digoxin load. heparin gtt started, monitoring h/h. - 12/18: rate controlled after IV digoxin load, dilt gtt off. cont heparin gtt SBO s/p ex lap, PAN -surgery following, npo now -holding eliquis for now - on heparin gtt, monitor h/h HTN -chronically suboptimal BP control at home -has been on mult meds including clonidine at home -lisinopril, chlorthalidone held here in setting of CHACHA, clonidine continued -hi dose diltiazem plus low dose propranolol started here to control rapid AF - transitioned to clonidine patch while NPO pulm HTN, chronic diastolic HF - mild to mod, likely 2/2 diastolic CHF - appears euvolemic DM - manage per primary HLD - continue statin
--- NOTE | 2018-12-18 11:30 | PN ---
Progress Note, Physician - Current Medication List Current Medications: Active Medications Acetaminophen (Ofirmev Injection -) 1,000 mg IVPB Q6H PRN PRN Reason: Pain Level 4-10 Last Admin: 12/18/18 05:15 Dose: 1,000 mg Chlorhexidine Gluconate (Hibiclens For Decolonization -) 1 applic TP HS [facility] Last Admin: 12/17/18 21:54 Dose: 1 applic Clonidine HCl (Catapres Tts Patch -) 0.2 mg TD Q7D@1000 [facility] Diltiazem HCl (Cardizem Injection -) 10 mg IVPUSH Q4H PRN PRN Reason: TACHYCARDIA Diphenhydramine HCl (Benadryl Injection -) 25 mg IVPB Q6H PRN PRN Reason: ITCHING Diltiazem HCl 125 mg/ Sodium (Chloride) 125 mls @ 5 mls/hr IVPB TITR [facility]; Protocol Last Titration: 12/18/18 08:05 Dose: 0 mg/hr, 0 mls/hr Ceftriaxone Sodium 2 gm/ (Dextrose) 100 mls @ 100 mls/hr IVPB DAILY [facility]; Protocol Last Admin: 12/17/18 09:54 Dose: 100 mls/hr Heparin Sodium (Porcine) 25, (000 unit/ Sodium Chloride) 500 mls @ 18 mls/hr IV TITR [facility]; Protocol Last Titration: 12/18/18 07:16 Dose: 1,200 unit/hr, 24 mls/hr Potassium Phosphate 15 mm/Calcium Gluconate 1,000 mg/Magnesium Sulfate 2 gm/ Folic Acid 1 mg/ Multivitamins/Minerals 10 ml/ Potassium Chloride 30 meq/ Insulin Human Regular 32 units/ Sterile Water/ Amino Acids/ Dextrose 1,500 mls @ 62.5 mls/hr IVPB DAILY@1600 [facility] Last Admin: 12/17/18 17:34 Dose: 62.5 mls/hr Fat Emulsion Intravenous (Intralipid -) 250 mls @ 20.833 mls/hr IV Q48H [facility] Insulin Aspart (Novolog Vial Sliding Scale -) 1 vial SQ Q6H [facility]; Protocol Last Admin: 12/18/18 06:12 Dose: Not Given Metoprolol Tartrate (Lopressor Injection -) 5 mg IVPUSH Q4H PRN PRN Reason: HYPERTENSION Last Admin: 12/15/18 23:26 Dose: 5 mg Morphine Sulfate (Morphine Sulfate) 4 mg IVPUSH Q4H PRN PRN Reason: Pain Level 8 - 10 BREAKTHROUGH Last Admin: 12/17/18 21:54 Dose: 4 mg Mupirocin (Bactroban Ointment (For Decolonization) -) 1 applic NS BID [facility] Stop: 12/18/18 21:59 Last Admin: 12/17/18 21:54 Dose: 1 applic Ondansetron HCl (Zofran Injection) 4 mg IVPUSH Q4H PRN PRN Reason: NAUSEA AND/OR VOMITING - Objective Vital Signs: Vital Signs Temperature 98.0 F 12/18/18 10:00 Pulse Rate 97 H 12/18/18 10:00 Respiratory Rate 25 H 12/18/18 10:00 Blood Pressure 115/63 12/18/18 08:05 O2 Sat by Pulse Oximetry (%) 98 12/18/18 09:00 Cardiovascular: Yes: Pulse Irregular, S1, S2 Respiratory: Yes: Regular, CTA Bilaterally Labs: CBC, BMP 12/18/18 06:00 12/18/18 06:00 INR, PTT INR 1.13 (0.83-1.09) H 12/17/18 05:30 Problem List - Problems (1) Small bowel obstruction Code(s): K56.609 - UNSP INTESTNL OBST, UNSP TO PARTIAL VERSUS COMPLETE OBST (2) Atrial fibrillation with RVR Code(s): I48.91 - UNSPECIFIED ATRIAL FIBRILLATION (3) Head ache Code(s): R51 - HEADACHE (4) Diabetes mellitus type 2 in obese Code(s): E11.69 - TYPE 2 DIABETES MELLITUS WITH OTHER SPECIFIED COMPLICATION; E66.9 - OBESITY, UNSPECIFIED (5) Hypertension Code(s): I10 - ESSENTIAL (PRIMARY) HYPERTENSION Qualifiers: Hypertension type: essential hypertension Qualified Code(s): I10 - Essential (primary) hypertension (6) Hydronephrosis, left Code(s): N13.30 - UNSPECIFIED HYDRONEPHROSIS Assessment/Plan - Problems (1) Atrial fibrillation with RVR Assessment/Plan: hold eliquis- on iv heparin drip iv cardizem drip icu monitirng CTA no PE cardio on board (2) Abdominal pain Assessment/Plan: 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 fistula now strict NPO no po meds wound vac in place in midline monitor lytes TPN via picc line needs about 6 weeks bowel rest and then [facility] for further surgical management iv pain control dvtppx Code(s): R10.9 - UNSPECIFIED ABDOMINAL PAIN Qualifiers: Abdominal location: unspecified location Qualified Code(s): R10.9 - Unspecified abdominal pain (3) S/P ureteral stent placement Assessment/Plan: seen by urology needs laser lithotripsy as an outpatient r Code(s): Z96.0 - PRESENCE OF UROGENITAL IMPLANTS (4) Diabetes mellitus type 2 in obese Assessment/Plan: bgm noted consult noted sliding scale Code(s): E11.69 - TYPE 2 DIABETES MELLITUS WITH OTHER SPECIFIED COMPLICATION; E66.9 - OBESITY, UNSPECIFIED (5) Adrenal adenoma Assessment/Plan: dexa supression test failed will need repeat test later as outpatient per endocrine Code(s): D35.00 - BENIGN NEOPLASM OF UNSPECIFIED ADRENAL GLAND (6) Headache Assessment/Plan: iv pain control if needed Code(s): R51 - HEADACHE (7) Hypertension Code(s): I10 - ESSENTIAL (PRIMARY) HYPERTENSION Qualifiers: Hypertension type: essential hypertension Qualified Code(s): I10 - Essential (primary) hypertension
[2018-12-18] MEDS ORDERED: DEXTROSE 5%-WATER 100 ML IVPB ONE (11:36)
--- NOTE | 2018-12-18 11:37 | PN ---
Progress Note, Physician History of Present Illness: Seen and examined at bedside. No acute event overnight. Off cardizem gtt at 8am because HR is in the 80s. Still on heparin gtt. - Current Medication List Current Medications: Active Medications Acetaminophen (Ofirmev Injection -) 1,000 mg IVPB Q6H PRN PRN Reason: Pain Level 4-10 Last Admin: 12/18/18 05:15 Dose: 1,000 mg Chlorhexidine Gluconate (Hibiclens For Decolonization -) 1 applic TP HS [facility] Last Admin: 12/17/18 21:54 Dose: 1 applic Clonidine HCl (Catapres Tts Patch -) 0.2 mg TD Q7D@1000 [facility] Diltiazem HCl (Cardizem Injection -) 10 mg IVPUSH Q4H PRN PRN Reason: TACHYCARDIA Diphenhydramine HCl (Benadryl Injection -) 25 mg IVPB Q6H PRN PRN Reason: ITCHING Diltiazem HCl 125 mg/ Sodium (Chloride) 125 mls @ 5 mls/hr IVPB TITR [facility]; Protocol Last Titration: 12/18/18 08:05 Dose: 0 mg/hr, 0 mls/hr Ceftriaxone Sodium 2 gm/ (Dextrose) 100 mls @ 100 mls/hr IVPB DAILY [facility]; Protocol Last Admin: 12/17/18 09:54 Dose: 100 mls/hr Heparin Sodium (Porcine) 25, (000 unit/ Sodium Chloride) 500 mls @ 18 mls/hr IV TITR [facility]; Protocol Last Titration: 12/18/18 07:16 Dose: 1,200 unit/hr, 24 mls/hr Potassium Phosphate 15 mm/Calcium Gluconate 1,000 mg/Magnesium Sulfate 2 gm/ Folic Acid 1 mg/ Multivitamins/Minerals 10 ml/ Potassium Chloride 30 meq/ Insulin Human Regular 32 units/ Sterile Water/ Amino Acids/ Dextrose 1,500 mls @ 62.5 mls/hr IVPB DAILY@1600 [facility] Last Admin: 12/17/18 17:34 Dose: 62.5 mls/hr Fat Emulsion Intravenous (Intralipid -) 250 mls @ 20.833 mls/hr IV Q48H [facility] Insulin Aspart (Novolog Vial Sliding Scale -) 1 vial SQ Q6H [facility]; Protocol Last Admin: 12/18/18 06:12 Dose: Not Given Metoprolol Tartrate (Lopressor Injection -) 5 mg IVPUSH Q4H PRN PRN Reason: HYPERTENSION Last Admin: 12/15/18 23:26 Dose: 5 mg Morphine Sulfate (Morphine Sulfate) 4 mg IVPUSH Q4H PRN PRN Reason: Pain Level 8 - 10 BREAKTHROUGH Last Admin: 12/17/18 21:54 Dose: 4 mg Mupirocin (Bactroban Ointment (For Decolonization) -) 1 applic NS BID [facility] Stop: 12/18/18 21:59 Last Admin: 12/17/18 21:54 Dose: 1 applic Ondansetron HCl (Zofran Injection) 4 mg IVPUSH Q4H PRN PRN Reason: NAUSEA AND/OR VOMITING - Objective Vital Signs: Vital Signs Temperature 98.0 F 12/18/18 10:00 Pulse Rate 97 H 12/18/18 10:00 Respiratory Rate 25 H 12/18/18 10:00 Blood Pressure 115/63 12/18/18 08:05 O2 Sat by Pulse Oximetry (%) 98 12/18/18 09:00 Constitutional: Yes: Calm. No: Mild Distress Cardiovascular: Yes: Pulse Irregular, S1, S2. No: Regular Rate and Rhythm, Murmur Respiratory: Yes: CTA Bilaterally Gastrointestinal: Yes: Normal Bowel Sounds, Soft, Abdomen, Obese, Tenderness, Other (wound vac). No: Distention Edema: No Neurological: Yes: Alert, Oriented Labs: CBC, BMP 12/18/18 06:00 12/18/18 06:00 INR, PTT INR 1.13 (0.83-1.09) H 12/17/18 05:30 Impression/Plan Impression/Plan: 72 year old woman PMH DM2, HTN, CKD, nephrolithiasis s/p L ureteral stent, prolonged hospital course after SBO. Admitted to the ICU for rapid Afib w/ RVR. GI: s/p lysis of adhesion POD 28 - Wound vac change and dressing per surgery CV: afib w/ rvr - off cardizem gtt, metoprolol and cardizem IVPUSH PRN. - Cont. digoxin - cont. Clonidine patch for BP control - cont. to hold PAIGE-I due to CHACHA on CKD - cont. statin Renal: on TPN - cont. TPN w/ lipids QOD Neuro - Stable Pulm - stable : UTI - Change stent once pt medically optimized per - Nephrolithiasis s/p left urethral stent - Pending culture - Cont. prophylatic abx ID: UTI - Cont. ceftriaxone for empiric treatment of UTI while awaiting culture results. FEN: - TPN per nephrology service Prophylaxis: - DVT: Heparin SQ - GI: Not indicated Dispo: Transfer to [facility]. Awaiting re-evaluation by [facility]. Elias Lin PGY3 Visit type - Emergency Visit Emergency Visit: No - New Patient This patient is new to me today: No - Critical Care Critical Care patient: Yes Total Critical Care Time (in minutes): 35 Critical Care Statement: The care of this patient involved high complexity decision making to prevent further life threatening deterioration of the patient 's condition and/or to evaluate & treat vital organ system(s) failure or risk of failure. - Discharge Referral Referred to [facility] Med P.C.: No
[2018-12-18] MEDS: MUPIROCIN 2% TOPICAL OINTMENT FOR DECOLONIZATION NS SCH (11:38)
[2018-12-18] MEDS: CEFTRIAXONE 2 GM in DEXTROSE 5%-WATER 100 ML IVPB SCH (11:38)
--- NOTE | 2018-12-18 11:56 | PN ---
Progress Note (short form) - Note Progress Note: Renal follow up for CHACHA Pt seen and examined in the ICU awake and alert reports abd and rectal pain no N/V no fever or chills making urine on TPN Vital Signs Temperature 98.0 F 12/18/18 10:00 Pulse Rate 97 H 12/18/18 10:00 Respiratory Rate 25 H 12/18/18 10:00 Blood Pressure 115/63 12/18/18 08:05 O2 Sat by Pulse Oximetry (%) 98 12/18/18 09:00 Intake & Output 12/15/18 12/16/18 12/17/18 12/18/18 23:59 23:59 23:59 23:59 Intake Total 2110 1677 1394 1205 Output Total 1700 800 825 840 Balance 410 877 569 365 Weight 85.457 kg NAD tachycardic Dec BS slight abd tenderness no edema CBC, BMP 12/18/18 06:00 12/18/18 06:00 Laboratory Tests 12/02/18 12/04/18 12/06/18 05:30 05:30 05:30 Plt Count Calcium 7.9 L 8.2 L 7.7 L Phosphorus 3.3 3.2 Magnesium 1.4 L 1.7 L Albumin 1.8 L 1.9 L Prealbumin Triglycerides 12/09/18 12/12/18 12/13/18 05:30 06:00 05:30 Plt Count 367 Calcium 7.9 L 8.2 L Phosphorus 2.4 L Magnesium 2.5 H 1.7 L Albumin 1.7 L 1.8 L Prealbumin Triglycerides 12/17/18 12/18/18 05:30 06:00 Plt Count Calcium 8.4 L 8.3 L Phosphorus 3.6 3.2 Magnesium 2.2 2.3 Albumin 1.7 L 1.8 L Prealbumin 14.4 L Triglycerides 225 H Current Medications Acetaminophen (Ofirmev Injection -) 1,000 mg IVPB Q6H PRN PRN Reason: Pain Level 4-10 Last Admin: 12/18/18 05:15 Dose: 1,000 mg Chlorhexidine Gluconate (Hibiclens For Decolonization -) 1 applic TP HS [facility] Last Admin: 12/17/18 21:54 Dose: 1 applic Clonidine HCl (Catapres Tts Patch -) 0.2 mg TD Q7D@1000 [facility] Diltiazem HCl (Cardizem Injection -) 10 mg IVPUSH Q4H PRN PRN Reason: TACHYCARDIA Diphenhydramine HCl (Benadryl Injection -) 25 mg IVPB Q6H PRN PRN Reason: ITCHING Diltiazem HCl 125 mg/ Sodium (Chloride) 125 mls @ 5 mls/hr IVPB TITR [facility]; Protocol Last Titration: 12/18/18 08:05 Dose: 0 mg/hr, 0 mls/hr Ceftriaxone Sodium 2 gm/ (Dextrose) 100 mls @ 100 mls/hr IVPB DAILY [facility]; Protocol Last Admin: 12/18/18 11:38 Dose: 100 mls/hr Heparin Sodium (Porcine) 25, (000 unit/ Sodium Chloride) 500 mls @ 18 mls/hr IV TITR [facility]; Protocol Last Titration: 12/18/18 07:16 Dose: 1,200 unit/hr, 24 mls/hr Potassium Phosphate 15 mm/Calcium Gluconate 1,000 mg/Magnesium Sulfate 2 gm/ Folic Acid 1 mg/ Multivitamins/Minerals 10 ml/ Potassium Chloride 30 meq/ Insulin Human Regular 32 units/ Sterile Water/ Amino Acids/ Dextrose 1,500 mls @ 62.5 mls/hr IVPB DAILY@1600 [facility] Last Admin: 12/17/18 17:34 Dose: 62.5 mls/hr Fat Emulsion Intravenous (Intralipid -) 250 mls @ 20.833 mls/hr IV Q48H [facility] Insulin Aspart (Novolog Vial Sliding Scale -) 1 vial SQ Q6H [facility]; Protocol Last Admin: 12/18/18 06:12 Dose: Not Given Metoprolol Tartrate (Lopressor Injection -) 5 mg IVPUSH Q4H PRN PRN Reason: HYPERTENSION Last Admin: 12/15/18 23:26 Dose: 5 mg Morphine Sulfate (Morphine Sulfate) 4 mg IVPUSH Q4H PRN PRN Reason: Pain Level 8 - 10 BREAKTHROUGH Last Admin: 12/17/18 21:54 Dose: 4 mg Mupirocin (Bactroban Ointment (For Decolonization) -) 1 applic NS BID [facility] Stop: 12/18/18 21:59 Last Admin: 12/18/18 11:38 Dose: 1 applic Ondansetron HCl (Zofran Injection) 4 mg IVPUSH Q4H PRN PRN Reason: NAUSEA AND/OR VOMITING 72 year old woman with hx of CKD, Nephrolithiasis, DM who presented with Abd pain secondary to SBO s/p surgical intervention with CHACHA. #Recurrent CHACHA #SBO s/p OR #enterocutaneous fistula #Prolonged NPO #Hypoalbuminema #Abd wound infection #LE edema #Chest Pain/Tightness Renal function stable Urology follow up regarding hydrneophrosis and indwelling stent Will continue TPN as patient remains NPO, volume of 1.5L daily Insulin 32 units in TPN Lipid to be given every other day on IV cardizem as per cardiology Continue clonidine patch Trend electrolytes daily Thank you Ethan Ram DO
--- NOTE | 2018-12-18 11:56 | PN ---
Teaching Attending Note Name of Resident: Elias Lin ATTENDING PHYSICIAN STATEMENT I saw and evaluated the patient. I reviewed the resident's note and discussed the case with the resident. I agree with the resident's findings and plan as documented. SUBJECTIVE: Pt seen and examined in the ICU. Episode of rapid afib this AM after being given enema, cardizem gtt restarted. Denies chest pain or shortness of breath. No fevers or chills. OBJECTIVE: Vital Signs Period Temp Pulse Resp BP Sys/Pascual Pulse Ox Last 24 Hr 97.2 F-98.3 F 60-123 13-25 93-145/60-113 98-98 Intake & Output 12/15/18 12/16/18 12/17/18 12/18/18 23:59 23:59 23:59 23:59 Intake Total 2110 1677 1394 1205 Output Total 1700 800 825 840 Balance 410 877 569 365 Weight 85.457 kg Gen: mildly tachypneic at rest Heart: irregular Lung: decreased breath sounds at the bases Abd: soft, +wound vac in place Ext: no edema CBC, BMP 12/18/18 06:00 12/18/18 06:00 Active Medications Acetaminophen (Ofirmev Injection -) 1,000 mg IVPB Q6H PRN PRN Reason: Pain Level 4-10 Last Admin: 12/18/18 05:15 Dose: 1,000 mg Chlorhexidine Gluconate (Hibiclens For Decolonization -) 1 applic TP HS [facility] Last Admin: 12/17/18 21:54 Dose: 1 applic Clonidine HCl (Catapres Tts Patch -) 0.2 mg TD Q7D@1000 [facility] Diltiazem HCl (Cardizem Injection -) 10 mg IVPUSH Q4H PRN PRN Reason: TACHYCARDIA Diphenhydramine HCl (Benadryl Injection -) 25 mg IVPB Q6H PRN PRN Reason: ITCHING Diltiazem HCl 125 mg/ Sodium (Chloride) 125 mls @ 5 mls/hr IVPB TITR [facility]; Protocol Last Titration: 12/18/18 08:05 Dose: 0 mg/hr, 0 mls/hr Ceftriaxone Sodium 2 gm/ (Dextrose) 100 mls @ 100 mls/hr IVPB DAILY [facility]; Protocol Last Admin: 12/18/18 11:38 Dose: 100 mls/hr Heparin Sodium (Porcine) 25, (000 unit/ Sodium Chloride) 500 mls @ 18 mls/hr IV TITR [facility]; Protocol Last Titration: 12/18/18 07:16 Dose: 1,200 unit/hr, 24 mls/hr Potassium Phosphate 15 mm/Calcium Gluconate 1,000 mg/Magnesium Sulfate 2 gm/ Folic Acid 1 mg/ Multivitamins/Minerals 10 ml/ Potassium Chloride 30 meq/ Insulin Human Regular 32 units/ Sterile Water/ Amino Acids/ Dextrose 1,500 mls @ 62.5 mls/hr IVPB DAILY@1600 [facility] Last Admin: 12/17/18 17:34 Dose: 62.5 mls/hr Fat Emulsion Intravenous (Intralipid -) 250 mls @ 20.833 mls/hr IV Q48H [facility] Insulin Aspart (Novolog Vial Sliding Scale -) 1 vial SQ Q6H [facility]; Protocol Last Admin: 12/18/18 06:12 Dose: Not Given Metoprolol Tartrate (Lopressor Injection -) 5 mg IVPUSH Q4H PRN PRN Reason: HYPERTENSION Last Admin: 12/15/18 23:26 Dose: 5 mg Morphine Sulfate (Morphine Sulfate) 4 mg IVPUSH Q4H PRN PRN Reason: Pain Level 8 - 10 BREAKTHROUGH Last Admin: 12/17/18 21:54 Dose: 4 mg Mupirocin (Bactroban Ointment (For Decolonization) -) 1 applic NS BID [facility] Stop: 12/18/18 21:59 Last Admin: 12/18/18 11:38 Dose: 1 applic Ondansetron HCl (Zofran Injection) 4 mg IVPUSH Q4H PRN PRN Reason: NAUSEA AND/OR VOMITING ASSESSMENT AND PLAN: Small Bowel Resection/Incisional Hernia s/p ex-lap/PAN/hernia repair Atrial Fibrillation with RVR LV Diastolic Dysfunction Pulmonary HTN CKD HTN DM - pain control - incentive spirometry - rate control, taper off cardizem gtt - continue anticoagulation - continue antibiotics - wound care - O2 to keep SpO2 >90% - TPN per renal - DVT prophylaxis - can monitor on telemetry
[2018-12-18] MEDS: CALCIUM GLUCONATE IVPB SCH (17:00)
[2018-12-18] MEDS: POTASSIUM PHOSPHATE IVPB SCH (17:00)
[2018-12-18] MEDS: [UNRECOGNIZED DRUG - OTHER] IVPB SCH (17:00)
[2018-12-18] MEDS: MAGNESIUM SULFATE IVPB SCH (17:00)
[2018-12-18] MEDS ORDERED: INSULIN (NOVOLOG) ASPART 100 UNITS/ML 10ML VIAL ONE (18:45)
[2018-12-18] MEDS: morphine SULFATE 4 MG/ML VIAL IVPUSH PRN (20:49)
[2018-12-18] MEDS: DILTIAZEM INJECTION 125 MG in SODIUM CHLORIDE 100 ML IVPB SCH (21:20)
--- NOTE | 2018-12-18 21:32 | PN ---
Progress Note, Physician History of Present Illness: POD28 s/p extensive lysis of intestinal adhesions for developing SBO, with suture repair of small RUQ incisional hernia from inside, with findings of previous intestinal reconstruction/hepaticojejunostomy, done years ago after post-cholecystectomy complications per pt. Also with likely PTFE mesh in situ from subsequent incarcerated umbilical hernia repair, was split in upper aspect for laparotomy. Pt postop course complicated by new onset afib with RVR and subsequent identification of enterocutaneous fistula in wound initially opened for spontaneous drainage. HR had been controlled and in sinus on po meds. She had previously tolerated soft diabetic diet, though with marginal po intake. She is now complete NPO with TPN and IV meds only, via PICC. Wound/ fistula management with VAC (white foam at base over necrotic fascia, black over that). Orangey/light brown enteric content in wound and VAC canister, low output. Had CTA chest several days ago with no evidence of PE, very small pleural effusion. Was transferred to ICU with recurrence of afib with RVR for cardizem drip. Has been ambulating, voiding, had enema earlier today and some disimpaction by nurse with moderate evacuation of stool. Still with abd pain at times, managed with tylenol and morphine prn. She had some burning with urination late in weekend into Sunday. UA showed +LE, wbc, some blood, culture growing yeast-like organism. Ceftriaxone started by ID for possible UTI. Heparin drip has been started, since pt cannot take PO meds; still being titrated up. Now also on digoxin and Cardizem drip is off. Renal managing TPN with insulin in bag, lipids every other day. Seen and examined in bed. VAC intact with about 450-475ml fluid in canister, clearer fluid layer on top. Up in chair and ambulating periodically. Had bad pain earlier today in upper abdomen as well as anorectum (after enema/ disimpaction). Now resting comfortably. - Current Medication List Current Medications: Active Medications Acetaminophen (Ofirmev Injection -) 1,000 mg IVPB Q6H PRN PRN Reason: Pain Level 4-10 Last Admin: 12/18/18 17:15 Dose: 1,000 mg Chlorhexidine Gluconate (Hibiclens For Decolonization -) 1 applic TP HS [facility] Last Admin: 12/17/18 21:54 Dose: 1 applic Clonidine HCl (Catapres Tts Patch -) 0.2 mg TD Q7D@1000 [facility] Diltiazem HCl (Cardizem Injection -) 10 mg IVPUSH Q4H PRN PRN Reason: TACHYCARDIA Diphenhydramine HCl (Benadryl Injection -) 25 mg IVPB Q6H PRN PRN Reason: ITCHING Diltiazem HCl 125 mg/ Sodium (Chloride) 125 mls @ 5 mls/hr IVPB TITR [facility]; Protocol Last Admin: 12/18/18 21:20 Dose: Not Given Ceftriaxone Sodium 2 gm/ (Dextrose) 100 mls @ 100 mls/hr IVPB DAILY [facility]; Protocol Last Admin: 12/18/18 11:38 Dose: 100 mls/hr Heparin Sodium (Porcine) 25, (000 unit/ Sodium Chloride) 500 mls @ 18 mls/hr IV TITR [facility]; Protocol Last Admin: 12/18/18 16:33 Dose: 1,350 unit/hr, 27 mls/hr Potassium Phosphate 15 mm/Calcium Gluconate 1,000 mg/Magnesium Sulfate 2 gm/ Folic Acid 1 mg/ Multivitamins/Minerals 10 ml/ Potassium Chloride 30 meq/ Insulin Human Regular 32 units/ Sterile Water/ Amino Acids/ Dextrose 1,500 mls @ 62.5 mls/hr IVPB DAILY@1600 [facility] Last Admin: 12/18/18 17:00 Dose: 62.5 mls/hr Fat Emulsion Intravenous (Intralipid -) 250 mls @ 20.833 mls/hr IV Q48H [facility] Insulin Aspart (Novolog Vial Sliding Scale -) 1 vial SQ Q6H [facility]; Protocol Last Admin: 12/18/18 18:46 Dose: 6 units Metoprolol Tartrate (Lopressor Injection -) 5 mg IVPUSH Q4H PRN PRN Reason: HYPERTENSION Last Admin: 12/15/18 23:26 Dose: 5 mg Morphine Sulfate (Morphine Sulfate) 4 mg IVPUSH Q4H PRN PRN Reason: Pain Level 8 - 10 BREAKTHROUGH Last Admin: 12/18/18 20:49 Dose: 4 mg Mupirocin (Bactroban Ointment (For Decolonization) -) 1 applic NS BID [facility] Stop: 12/18/18 21:59 Last Admin: 12/18/18 11:38 Dose: 1 applic Ondansetron HCl (Zofran Injection) 4 mg IVPUSH Q4H PRN PRN Reason: NAUSEA AND/OR VOMITING - Objective Vital Signs: Vital Signs Temperature 98.0 F 12/18/18 17:27 Pulse Rate 90 12/18/18 17:27 Respiratory Rate 16 12/18/18 17:27 Blood Pressure 136/89 12/18/18 17:27 O2 Sat by Pulse Oximetry (%) 98 12/18/18 09:00 Vital Signs Period Temp Pulse Resp BP Sys/Pascual Pulse Ox Last 24 Hr 97.3 F-98.3 F 60-119 13-25 108-162/60-91 98 Constitutional: Yes: No Distress, Calm, Obese Eyes: Yes: Conjunctiva Clear, EOM Intact HENT: Yes: Atraumatic, Normocephalic Gastrointestinal: Yes: Soft, Abdomen, Obese, Tenderness (upper abdomen, more to right side than left today) Extremities: No: Cool, Cyanosis Integumentary: Yes: Incision (midline w/VAC). No: Jaundice, Rash Wound/Incision: Yes: Dressing Dry and Intact (VAC intact at -125mm cont pressure ), Dressing Removed (and VAC changed, with white foam strip in base, black over that with larger piece bridged on top for trac-pad), Draining (only about 50- 75ml clearer fluid in canister), Unapproximated (wound granulating, pink/red, clean with some residual necrotic fascia in upper portion, fascia mostly gone in lower aspect, in situ PTFE mesh visible to both sides - no pool of yellow/ enteric content in wound today under white foam -- granulating tissue under edges of mesh appear to have essentially sealed over site where fistula is suspected) Neurological: Yes: Alert, Oriented Labs: CBC, BMP 12/18/18 06:00 12/18/18 06:00 CMP Sodium 140 mmol/L (136-145) 12/18/18 06:00 Potassium 4.4 mmol/L (3.5-5.1) 12/18/18 06:00 Chloride 106 mmol/L (98-107) 12/18/18 06:00 Carbon Dioxide 27 mmol/L (21-32) 12/18/18 06:00 Anion Gap 6 MMOL/L (8-16) L 12/18/18 06:00 BUN 43 mg/dL (7-18) H 12/18/18 06:00 Creatinine 1.3 mg/dL (0.55-1.3) 12/18/18 06:00 Creat Clearance w eGFR 39.93 (>60) 12/18/18 06:00 POC Glucometer 213 UNITS (80-120) 12/18/18 16:23 Random Glucose 179 mg/dL (74-106) H 12/18/18 06:00 Hemoglobin A1c % 8.9 % (4.2-6.3) H 11/17/18 06:40 Lactic Acid 1.3 mmol/L (0.4-2.0) 11/19/18 22:35 Calcium 8.3 mg/dL (8.5-10.1) L 12/18/18 06:00 Phosphorus 3.2 mg/dL (2.5-4.9) 12/18/18 06:00 Magnesium 2.3 mg/dL (1.8-2.4) 12/18/18 06:00 Iron 9 ug/dL (27-139) L 12/07/18 12:20 TIBC 153 ug/dL (250-450) L 12/07/18 12:20 Iron Saturation 6 % (15-55) L 12/07/18 12:20 Ferritin 115.9 ng/ml (8-388) 12/07/18 07:20 Total Bilirubin 0.3 mg/dL (0.2-1) 12/18/18 06:00 AST 21 U/L (15-37) 12/18/18 06:00 ALT 12 U/L (13-61) L 12/18/18 06:00 Alkaline Phosphatase 134 U/L (45-117) H 12/18/18 06:00 LD Total 152 U/L (84-246) 11/19/18 20:00 Creatine Kinase 29 U/L (26-192) 12/14/18 05:30 Troponin I 0.20 ng/ml (0.00-0.05) H 12/14/18 05:30 C-Reactive Protein 5.7 MG/DL (0.00-0.3) H 11/29/18 05:30 Total Protein 6.5 g/dl (6.4-8.2) 12/18/18 06:00 Albumin 1.8 g/dl (3.4-5.0) L 12/18/18 06:00 Prealbumin 14.4 mg/dl (20-40) L 12/18/18 06:00 Triglycerides 225 mg/dL (0-150) H 12/18/18 06:00 Total Amylase 50 U/L (25-115) 11/19/18 20:00 Lipase 154 U/L (73-393) 11/19/18 20:00 Vitamin B12 312 pg/ml (193-986) 12/07/18 07:20 TSH 1.10 uIU/ml (0.358-3.74) 12/07/18 07:20 Free T4 1.41 ng/dl (0.76-1.46) 12/07/18 07:20 Cortisol AM Sample 8.7 ug/dL (6.2-19.4) 12/04/18 05:30 ACTH 2.2 PG/ML (7.2-63.3) L 12/04/18 05:30 prealbumin up from 8.5 PTT 38.2 at 2pm Problem List - Problems (1) Intestinal adhesions with partial obstruction Assessment/Plan: POD28 s/p extensive lysis of adhesions and RUQ incisional hernia repair s/p hepaticojejunostomy in past with intestinal reconstruction - with dilated/ stagnant loop of anastomotic area had small enterotomy with small yellow fluid leakage repaired in proximal SB ( hepatic limb?) up under RUQ scar, near incisional hernia, minimal contamination POD11 s/p complex I&D of midline postop wound infection low output enterocutaneous fistula present under midportion of midline wound - may be sealing with granulation tissue VAC changed with nurse and nursing support worker; white foam in base, good seal maintained COMPLETE NPO with TPN, IV meds only via PICC line from IR pain meds prn - tylenol first line, morphine as needed breakthrough and for dressing changes monitor labs, lytes, glucose TPN per renal prealbumin coming up slowly Code(s): K56.51 - INTESTINAL ADHESIONS [BANDS], WITH PARTIAL OBSTRUCTION (2) Infection following a procedure, superficial incisional surgical site, initial encounter Assessment/Plan: culture grew mostly sensitive E. coli, E. faecalis, yeast-like organism Code(s): T81.41XA - INFCT FOL A PROC, SUPERFIC INCISIONAL SURGICAL SITE, INIT (3) Enterocutaneous fistula Assessment/Plan: in context of PTFE mesh in situ in field/wound and underlying abnormal intestinal anatomy will need mesh removal, fistula takedown, reconstruction of abdominal wall discussed with Dr. Calzada at [place] he is ok with transfer to [facility] for complex wound care ([employer] VAC with white foam/ black foam), TPN and telemetry needs he would then see her as outpatient in his office from [facility] at 6 wks postop to decide when to have her transferred to [place] for intervention Code(s): K63.2 - FISTULA OF INTESTINE (4) Persistent postprocedural fistula, initial encounter Assessment/Plan: enterocutaneous fistula continue VAC - white foam in wound base, black over VAC changes 3x weekly - next Sunday TPN/complete NPO plan is transfer to [facility] for ongoing care, until it is time for evaluation by Dr. Rafael Calzada from [place] (6 wks postop) might be able [facility]next week to see if fistula output increases Code(s): T81.83XA - PERSISTENT POSTPROCEDURAL FISTULA, INITIAL ENCOUNTER (5) Incisional hernia, without obstruction or gangrene Code(s): K43.2 - INCISIONAL HERNIA WITHOUT OBSTRUCTION OR GANGRENE (6) Atrial fibrillation with RVR Assessment/Plan: converted back to ALL IV meds, completely NPO cardiology following cardizem drip now off; rate control with digoxin effective maintain lytes in normal range heparin drip started while NPO/Eliquis on hold still titrating for therapeutic PTT This patient is critically ill. Time spent reviewing chart, examining patient, talking with providers and/or family and documentation is 40 minutes. Code(s): I48.91 - UNSPECIFIED ATRIAL FIBRILLATION (7) Hypertension Assessment/Plan: cardio managing, IV meds with clonidine patch Code(s): I10 - ESSENTIAL (PRIMARY) HYPERTENSION Qualifiers: Hypertension type: essential hypertension Qualified Code(s): I10 - Essential (primary) hypertension (8) Diabetes mellitus type 2 in obese Assessment/Plan: endo had seen earlier glucose management along with TPN - insulin added to TPN, renal managing Code(s): E11.69 - TYPE 2 DIABETES MELLITUS WITH OTHER SPECIFIED COMPLICATION; E66.9 - OBESITY, UNSPECIFIED (9) S/P ureteral stent placement Assessment/Plan: left ureteral stent in place; management per uro - pt may need laser lithotripsy with stent removal?, off anticoagulation mild increase in left hydronephrosis on last CT now with possible UTI - yeast on culture urology saw again antibiotics per ID ? need for antifungal? Code(s): Z96.0 - PRESENCE OF UROGENITAL IMPLANTS (10) Gout Assessment/Plan: home med on hold Code(s): M10.9 - GOUT, UNSPECIFIED Qualifiers: Gout site: toe Gout etiology: unspecified cause Chronicity: unspecified Laterality: unspecified laterality Qualified Code(s): M10.9 - Gout, unspecified (11) CKD (chronic kidney disease) stage 3, GFR 30-59 ml/min Assessment/Plan: nephrology following and managing TPN daily labs BUN/Cr stable 43/1.3 Code(s): N18.3 - CHRONIC KIDNEY DISEASE, STAGE 3 (MODERATE)
[2018-12-18] MEDS ORDERED: HYDROmorphone HCl 2 MG/ML VIAL IVPUSH ONE (21:47)
[2018-12-18] MEDS: CHLORHEXIDINE GLUCONATE 4% CLEANSER FOR DECOLONIZATION TP SCH (22:41)
[2018-12-19] MEDS: INSULIN SLIDING SCALE (NOVOLOG) 1 VIAL SQ SCH ×4 (05:40→22:49)
[2018-12-19 06:25] LABS: HEMOGLOBIN 9.8 GM/dL (10.7-15.3); MCH 27.2 pg (25.7-33.7); MCHC 32.8 g/dl (32.0-36.0); MEAN CELL VOLUME 82.8 fl (80-96); MEAN PLT VOLUME 8.2 fl (7.5-11.1); PLATELET COUNT 294 K/MM3 (134-434); RBC 3.62 M/mm3 (3.60-5.2); WHITE BLOOD COUNT 7.1 K/mm3 (4.0-10.0)
[2018-12-19 06:51] LABS: ALK PHOS 162 U/L (45-117); ANION GAP 6 MMOL/L (8-16); BILIRUBIN,TOTAL 0.4 mg/dL (0.2-1); BLOOD UREA NITROGEN 43 mg/dL (7-18); CALCIUM 8.3 mg/dL (8.5-10.1); CHLORIDE 105 mmol/L (98-107); CO2 24 mmol/L (21-32); CREATININE 1.3 mg/dL (0.55-1.3); GLUCOSE,RANDOM 227 mg/dL (74-106); POTASSIUM 4.4 mmol/L (3.5-5.1); SGOT/AST 31 U/L (15-37); SGPT/ALT 18 U/L (13-61); SODIUM 135 mmol/L (136-145); TOT PROT 7.5 g/dl (6.4-8.2)
[2018-12-19 06:55] LABS: INR 1.15 (0.83-1.09); PROTHROMBIN TIME (PATIENT) 13.6 SEC (9.7-13.0)
[2018-12-19 06:57] LABS: ACTIVATED PTT 45.3 SECONDS (25.2-36.5)
[2018-12-19] MEDS ORDERED: DEXTROSE 5%-WATER 100 ML IVPB ONE (09:30)
[2018-12-19] MEDS: CEFTRIAXONE 2 GM in DEXTROSE 5%-WATER 100 ML IVPB SCH (09:34)
[2018-12-19] MEDS: ACETAMINOPHEN 1000 MG/100 ML VIAL (NON FORMULARY) IVPB PRN ×2 (10:49→17:25)
[2018-12-19] MEDS: morphine SULFATE 4 MG/ML VIAL IVPUSH PRN ×2 (10:51→21:29)
--- NOTE | 2018-12-19 11:34 | PN ---
Teaching Attending Note Name of Resident: Ronny Andersen ATTENDING PHYSICIAN STATEMENT I saw and evaluated the patient. I reviewed the resident's note and discussed the case with the resident. I agree with the resident's findings and plan as documented. SUBJECTIVE: Patient seen and examined in the ICU. Off Cardizem IV for rate control. No CP or SOB. Minimal abdominal discomfort. Remains NPO. Intake & Output 12/16/18 12/17/18 12/18/18 12/19/18 23:59 23:59 23:59 23:59 Intake Total 1677 1394 4815 626.5 Output Total 558 739 1000 Balance 694 482 3600 626.5 Weight 188 lb 6.4 oz 188 lb 6.4 oz Last Vital Signs Temp Pulse Resp BP Pulse Ox 98.0 F 100 H 19 138/91 100 12/19/18 10:00 12/19/18 10:00 12/19/18 10:00 12/19/18 10:00 12/19/18 08:36 Active Medications Acetaminophen (Ofirmev Injection -) 1,000 mg IVPB Q6H PRN PRN Reason: Pain Level 4-10 Last Admin: 12/19/18 10:49 Dose: 1,000 mg Chlorhexidine Gluconate (Hibiclens For Decolonization -) 1 applic TP HS [facility] Last Admin: 12/18/18 22:41 Dose: 1 applic Clonidine HCl (Catapres Tts Patch -) 0.2 mg TD Q7D@1000 [facility] Diltiazem HCl (Cardizem Injection -) 10 mg IVPUSH Q4H PRN PRN Reason: TACHYCARDIA Diphenhydramine HCl (Benadryl Injection -) 25 mg IVPB Q6H PRN PRN Reason: ITCHING Diltiazem HCl 125 mg/ Sodium (Chloride) 125 mls @ 5 mls/hr IVPB TITR [facility]; Protocol Last Admin: 12/18/18 21:20 Dose: Not Given Ceftriaxone Sodium 2 gm/ (Dextrose) 100 mls @ 100 mls/hr IVPB DAILY [facility]; Protocol Last Admin: 12/19/18 09:34 Dose: 100 mls/hr Heparin Sodium (Porcine) 25, (000 unit/ Sodium Chloride) 500 mls @ 18 mls/hr IV TITR [facility]; Protocol Last Titration: 12/19/18 07:26 Dose: 1,450 unit/hr, 29 mls/hr Potassium Phosphate 15 mm/Calcium Gluconate 1,000 mg/Magnesium Sulfate 2 gm/ Folic Acid 1 mg/ Multivitamins/Minerals 10 ml/ Potassium Chloride 30 meq/ Insulin Human Regular 32 units/ Sterile Water/ Amino Acids/ Dextrose 1,500 mls @ 62.5 mls/hr IVPB DAILY@1600 [facility] Last Admin: 12/18/18 17:00 Dose: 62.5 mls/hr Fat Emulsion Intravenous (Intralipid -) 250 mls @ 20.833 mls/hr IV Q48H [facility] Insulin Aspart (Novolog Vial Sliding Scale -) 1 vial SQ Q6H [facility]; Protocol Last Admin: 12/19/18 05:40 Dose: 6 units Metoprolol Tartrate (Lopressor Injection -) 5 mg IVPUSH Q4H PRN PRN Reason: HYPERTENSION Last Admin: 12/15/18 23:26 Dose: 5 mg Ondansetron HCl (Zofran Injection) 4 mg IVPUSH Q4H PRN PRN Reason: NAUSEA AND/OR VOMITING Gen: awake,alert, NAD HEENT: NCAT, (-) Pallor, (-) Icterus PULM: diminished bases, no wheezes CV: Afib ABD: soft, Non tender, wound vac in place , hypoactive BS EXT: dependent edema Neuro: non focal Laboratory Results - last 24 hr 12/18/18 12/18/18 12/18/18 11:47 14:00 16:23 WBC RBC Hgb Hct MCV MCH MCHC RDW Plt Count MPV PT with INR INR PTT (Actin FS) 38.2 H Sodium Potassium Chloride Carbon Dioxide Anion Gap BUN Creatinine Creat Clearance w eGFR POC Glucometer 273 213 Random Glucose Calcium Total Bilirubin AST ALT Alkaline Phosphatase Total Protein Albumin 12/18/18 12/19/18 12/19/18 22:43 05:30 05:30 WBC 7.1 RBC 3.62 Hgb 9.8 L Hct 30.0 L MCV 82.8 MCH 27.2 MCHC 32.8 RDW 21.0 H Plt Count 294 MPV 8.2 PT with INR 13.60 H INR 1.15 H PTT (Actin FS) 45.3 H Sodium Potassium Chloride Carbon Dioxide Anion Gap BUN Creatinine Creat Clearance w eGFR POC Glucometer 146 Random Glucose Calcium Total Bilirubin AST ALT Alkaline Phosphatase Total Protein Albumin 12/19/18 12/19/18 12/19/18 05:30 05:38 10:59 WBC RBC Hgb Hct MCV MCH MCHC RDW Plt Count MPV PT with INR INR PTT (Actin FS) Sodium 135 L Potassium 4.4 Chloride 105 Carbon Dioxide 24 Anion Gap 6 L BUN 43 H Creatinine 1.3 Creat Clearance w eGFR 39.93 POC Glucometer 240 246 Random Glucose 227 H Calcium 8.3 L Total Bilirubin 0.4 AST 31 ALT 18 Alkaline Phosphatase 162 H Total Protein 7.5 Albumin 2.0 L Problem List - Problems (1) Intestinal adhesions with partial obstruction Assessment/Plan: Code(s): K56.51 - INTESTINAL ADHESIONS [BANDS], WITH PARTIAL OBSTRUCTION (2) Infection following a procedure, superficial incisional surgical site, initial encounter Assessment/Plan: Code(s): T81.41XA - INFCT FOL A PROC, SUPERFIC INCISIONAL SURGICAL SITE, INIT (3) Enterocutaneous fistula Assessment/Plan: Code(s): K63.2 - FISTULA OF INTESTINE (4) Persistent postprocedural fistula, initial encounter Assessment/Plan: Code(s): T81.83XA - PERSISTENT POSTPROCEDURAL FISTULA, INITIAL ENCOUNTER (5) Incisional hernia, without obstruction or gangrene Code(s): K43.2 - INCISIONAL HERNIA WITHOUT OBSTRUCTION OR GANGRENE (6) Atrial fibrillation with RVR Assessment/Plan: Code(s): I48.91 - UNSPECIFIED ATRIAL FIBRILLATION (7) Hypertension Assessment/Plan: Code(s): I10 - ESSENTIAL (PRIMARY) HYPERTENSION Qualifiers: Hypertension type: essential hypertension Qualified Code(s): I10 - Essential (primary) hypertension (8) Diabetes mellitus type 2 in obese Assessment/Plan: Code(s): E11.69 - TYPE 2 DIABETES MELLITUS WITH OTHER SPECIFIED COMPLICATION; E66.9 - OBESITY, UNSPECIFIED (9) S/P ureteral stent placement Assessment/Plan: Code(s): Z96.0 - PRESENCE OF UROGENITAL IMPLANTS (10) Gout Assessment/Plan: Code(s): M10.9 - GOUT, UNSPECIFIED Qualifiers: Gout site: toe Gout etiology: unspecified cause Chronicity: unspecified Laterality: unspecified laterality Qualified Code(s): M10.9 - Gout, unspecified (11) CKD (chronic kidney disease) stage 3, GFR 30-59 ml/min Assessment/Plan: Code(s): N18.3 - CHRONIC KIDNEY DISEASE, STAGE 3 (MODERATE) IMP: Rapid Afib, now rate controlled on IV Cardizem drip HTN CKD Nephrolithiasis s/p L ureteral stent TPN per Renal Incentive Spirometry O2 as needed VTE prophylaxis NPO per surgery AC Patient is being assessed for LTAC placement Dr Saunders
--- NOTE | 2018-12-19 11:44 | PN ---
Progress Note, Physician Chief Complaint: seen and examined in icu complaining of abdominal pain off cardizem drip currently rate controlled got iv digoxin on heparin drip - Current Medication List Current Medications: Active Medications Acetaminophen (Ofirmev Injection -) 1,000 mg IVPB Q6H PRN PRN Reason: Pain Level 4-10 Last Admin: 12/19/18 10:49 Dose: 1,000 mg Chlorhexidine Gluconate (Hibiclens For Decolonization -) 1 applic TP HS [facility] Last Admin: 12/18/18 22:41 Dose: 1 applic Clonidine HCl (Catapres Tts Patch -) 0.2 mg TD Q7D@1000 [facility] Diltiazem HCl (Cardizem Injection -) 10 mg IVPUSH Q4H PRN PRN Reason: TACHYCARDIA Diphenhydramine HCl (Benadryl Injection -) 25 mg IVPB Q6H PRN PRN Reason: ITCHING Diltiazem HCl 125 mg/ Sodium (Chloride) 125 mls @ 5 mls/hr IVPB TITR [facility]; Protocol Last Admin: 12/18/18 21:20 Dose: Not Given Ceftriaxone Sodium 2 gm/ (Dextrose) 100 mls @ 100 mls/hr IVPB DAILY [facility]; Protocol Last Admin: 12/19/18 09:34 Dose: 100 mls/hr Heparin Sodium (Porcine) 25, (000 unit/ Sodium Chloride) 500 mls @ 18 mls/hr IV TITR [facility]; Protocol Last Titration: 12/19/18 07:26 Dose: 1,450 unit/hr, 29 mls/hr Potassium Phosphate 15 mm/Calcium Gluconate 1,000 mg/Magnesium Sulfate 2 gm/ Folic Acid 1 mg/ Multivitamins/Minerals 10 ml/ Potassium Chloride 30 meq/ Insulin Human Regular 32 units/ Sterile Water/ Amino Acids/ Dextrose 1,500 mls @ 62.5 mls/hr IVPB DAILY@1600 [facility] Last Admin: 12/18/18 17:00 Dose: 62.5 mls/hr Fat Emulsion Intravenous (Intralipid -) 250 mls @ 20.833 mls/hr IV Q48H [facility] Insulin Aspart (Novolog Vial Sliding Scale -) 1 vial SQ Q6H [facility]; Protocol Last Admin: 12/19/18 05:40 Dose: 6 units Metoprolol Tartrate (Lopressor Injection -) 5 mg IVPUSH Q4H PRN PRN Reason: HYPERTENSION Last Admin: 12/15/18 23:26 Dose: 5 mg Ondansetron HCl (Zofran Injection) 4 mg IVPUSH Q4H PRN PRN Reason: NAUSEA AND/OR VOMITING - Objective Vital Signs: Vital Signs Temperature 98.0 F 12/19/18 10:00 Pulse Rate 100 H 12/19/18 10:00 Respiratory Rate 12/19/18 10:00 Blood Pressure 138/91 12/19/18 10:00 O2 Sat by Pulse Oximetry (%) 100 12/19/18 08:36 Constitutional: Yes: Mild Distress Cardiovascular: Yes: Regular Rate and Rhythm, S1, S2 Respiratory: Yes: CTA Bilaterally, Diminished (at bases) Gastrointestinal: Yes: Soft, Hypoactive Bowel Sounds, Other (wound vac) Edema: Yes Neurological: Yes: Alert Labs: CBC, BMP 12/19/18 05:30 12/19/18 05:30 INR, PTT INR 1.15 (0.83-1.09) H 12/19/18 05:30 Problem List - Problems (1) Atrial fibrillation with RVR Assessment/Plan: iv cardizem stopped iv digoxin loading dose iv heparin started monitoring h/h (2) Abdominal pain Assessment/Plan: 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 fistula now strict NPO no po meds wound vac in place in midline monitor lytes TPN via picc line needs about 6 weeks bowel rest and then [facility] for further surgical management iv pain control dvtppx Code(s): R10.9 - UNSPECIFIED ABDOMINAL PAIN Qualifiers: Qualified Code(s): R10.9 - Unspecified abdominal pain (3) S/P ureteral stent placement Assessment/Plan: seen by urology - to change stent once medically stable uti iv abx for now lithrotripsy as outpatient Code(s): Z96.0 - PRESENCE OF UROGENITAL IMPLANTS (4) Diabetes mellitus type 2 in obese Assessment/Plan: bgm noted insulin in TPN consult noted sliding scale Code(s): E11.69 - TYPE 2 DIABETES MELLITUS WITH OTHER SPECIFIED COMPLICATION; E66.9 - OBESITY, UNSPECIFIED (5) Adrenal adenoma Assessment/Plan: dexa supression test failed will need repeat test later as outpatient per endocrine Code(s): D35.00 - BENIGN NEOPLASM OF UNSPECIFIED ADRENAL GLAND (6) Headache Assessment/Plan: iv pain control if needed Code(s): R51 - HEADACHE (7) Hypertension Assessment/Plan: clonidine patch increased to .2 mg Code(s): I10 - ESSENTIAL (PRIMARY) HYPERTENSION Qualifiers: Qualified Code(s): I10 - Essential (primary) hypertension
--- NOTE | 2018-12-19 11:47 | PN ---
Progress Note (short form) - Note Progress Note: s: no cp sob palps dizzy o: Vital Signs Period Temp Pulse Resp BP Sys/Pascual Pulse Ox Last 24 Hr 97.3 F-98.3 F 88-102 12-25 104-162/64-91 100-100 Constitutional: Yes: Well Nourished, No Distress, Calm Eyes: Yes: Conjunctiva Clear Respiratory: Yes: Regular, CTA Bilaterally Gastrointestinal: Yes: Tenderness Cardiovascular: Yes: irreg JVD: No Heart Sounds: Yes: S1, S2 Murmur: No: Systolic Murmur Extremities: No: Cold Edema: No Peripheral Pulses: 2+ Left Doralis Pedis, 2+ Right Dorsalis Pedis Integumentary: No: Jaundice Neurological: Yes: Alert, Oriented Psychiatric: No: Agitated Current Medications Generic Name Dose Route Start Last Admin Trade Name Freq PRN Reason Stop Dose Admin Acetaminophen 1,000 mg 12/14/18 19:52 12/19/18 10:49 Ofirmev Injection - IVPB 1,000 mg Q6H PRN Administration Pain Level 4-10 Chlorhexidine Gluconate 1 applic 12/13/18 22:00 12/18/18 22:41 Hibiclens For Decolonization - TP 1 applic HS [facility] Administration Clonidine HCl 0.2 mg 12/20/18 10:00 Catapres Tts Patch - TD Q7D@1000 [facility] Diltiazem HCl 10 mg 12/14/18 19:52 Cardizem Injection - IVPUSH Q4H PRN TACHYCARDIA Diphenhydramine HCl 25 mg 12/14/18 19:52 Benadryl Injection - IVPB Q6H PRN ITCHING Diltiazem HCl 125 mg/ Sodium 125 mls @ 5 mls/hr 12/14/18 19:52 12/18/18 21:20 Chloride IVPB Not Given TITR [facility] Protocol 5 MG/HR Ceftriaxone Sodium 2 gm/ 100 mls @ 100 mls/hr 12/16/18 16:15 12/19/18 09:34 Dextrose IVPB 100 mls/hr DAILY [facility] Administration Protocol Heparin Sodium (Porcine) 25, 500 mls @ 18 mls/hr 12/16/18 16:30 12/19/18 07: 26 000 unit/ Sodium Chloride IV 1,450 unit/hr TITR [facility] 29 mls/hr Titration Protocol 900 UNIT/HR Potassium Phosphate 15 mm/ 1,500 mls @ 62.5 mls/hr 12/17/18 16:00 12/18/18 17 :00 Calcium Gluconate 1,000 mg/ IVPB 62.5 mls/hr Magnesium Sulfate 2 gm/ Folic DAILY@1600 [facility] Administration Acid 1 mg/ Multivitamins/ Minerals 10 ml/ Potassium Chloride 30 meq/ Insulin Human Regular 32 units/ Sterile Water/ Amino Acids/ Dextrose Fat Emulsion Intravenous 250 mls @ 20.833 mls/hr 12/19/18 22:00 Intralipid - IV Q48H [facility] Insulin Aspart 1 vial 12/15/18 17:30 12/19/18 05:40 Novolog Vial Sliding Scale - SQ 6 units Q6H [facility] Administration Protocol Metoprolol Tartrate 5 mg 12/14/18 19:52 12/15/18 23:26 Lopressor Injection - IVPUSH 5 mg Q4H PRN Administration HYPERTENSION Ondansetron HCl 4 mg 12/14/18 19:52 Zofran Injection IVPUSH Q4H PRN NAUSEA AND/OR VOMITING CBC, BMP 12/19/18 05:30 12/19/18 05:30 Assessment/Plan EKG: initial sinus, LVH, first deg AVB EKG 11/22 afib with RVR rate 135 bpm echo 11/2016 LV mildly dilated, nl LV function, sigmoid septum, RV nl, LA severely dilated, RA mildly enlarged, mild MR, mild TR, at least mild pulm HTN, RVSP at least 42 mmHg tele: afib, rate low 100s afib - in post op setting after ex lap, PAN. -12/08: Hgb 7.8, agree with holding DOAC until hgb more stable - 12/09-: holding eliquis continue short acting diltiazem po, hr stable. long acting dilt and inderal on hold due to NPO. - 12/13-: monitoring in ICU for afib with RVR, dilt gtt and PRN lopressor. replete lytes for K >4.0 and Mg >2.0 - 12/15: occasionally in sinus, rate ok in afib with occasional rvr. continue dilt gtt. hold on digoxin as Cr rising, d/w renal. - 12/17: on dilt gtt, receiving IV digoxin load. heparin gtt started, monitoring h/h. - 12/18-: rate controlled after IV digoxin load, dilt gtt off. cont heparin gtt SBO s/p ex lap, PAN -surgery following, npo now -holding eliquis for now -on heparin gtt, monitor h/h HTN -chronically suboptimal BP control at home -has been on mult meds including clonidine at home -lisinopril, chlorthalidone held here in setting of CHACHA, clonidine continued -hi dose diltiazem plus low dose propranolol started here to control rapid AF - transitioned to clonidine patch while NPO pulm HTN, chronic diastolic HF - mild to mod, likely 2/2 diastolic CHF - appears euvolemic DM - manage per primary HLD - continue statin when able to take po
--- NOTE | 2018-12-19 15:23 | PN ---
Physical Exam: SUBJECTIVE: Patient seen and examined HD# 33 ICU D# 4 Overnight Events: No acute events overnight. Endorses mild pain around the wound vac site, which was changed yesterday afternoon. Pt denies chest pain or shortness of breath. States she was OOB at multiple periods yesterday and this morning before rounds. OBJECTIVE: Vital Signs Period Temp Pulse Resp BP Sys/Pascual Pulse Ox Last 24 Hr 97.8 F-98.3 F 90-108 12-25 104-142/64-91 100-100 Intake & Output 12/19/18 12/19/18 12/19/18 06:59 14:59 22:59 Intake Total 2791.5 Output Total 1050 Balance 1741.5 Weight 85.457 kg Intake: IV 1324 Heparin - 25,000 Unit In 454 Normal Saline - 495 ml @ 900 UNIT/HR 18 mls/hr IV TITR [facility] Rx#:[id number] PICC 840 RFA#20 s/l 12/16/18 30 IVPB 300 Oral 0 TPN/PPN 1167.5 Lipid 0 Output: Gastric Drainage 300 Urine 750 Void 750 Other: Voiding Method Bedside Commode Bowel Movement Yes # Bowel Movements 1 Lines: - PICC - PIV Drains: - Abdominal Wound VAC Supplemental Oxygen: None Physical Exams: GENERAL: The patient is awake, alert, and fully oriented, in no acute distress. HEAD: Normal with no signs of trauma. EYES: Eyes open spontaneously LUNGS: Breath sounds equal, clear to auscultation bilaterally, no wheezes, no crackles, no accessory muscle use. HEART: Irregularly irregular rate and rhythm, S1, S2 without murmur, rub or gallop. ABDOMEN: Mildly tender around wound site without grimace or withdrawal. Abd is nondistended. Wound VAC to midline with brown colored output; site well appearing. EXTREMITIES: 2+ pulses, warm, well-perfused, trace pretibial edema. PSYCH: Normal mood, normal affect. SKIN: Warm and dry. Drips: - Heparin @ 1450 units/hr Anti Infectives: - Ceftriaxone Day 4 Laboratory Results - last 24 hr 12/18/18 12/18/18 12/18/18 14:00 16:23 22:43 WBC RBC Hgb Hct MCV MCH MCHC RDW Plt Count MPV PT with INR INR PTT (Actin FS) 38.2 H Sodium Potassium Chloride Carbon Dioxide Anion Gap BUN Creatinine Creat Clearance w eGFR POC Glucometer 213 146 Random Glucose Calcium Total Bilirubin AST ALT Alkaline Phosphatase Total Protein Albumin 12/19/18 12/19/18 12/19/18 05:30 05:30 05:30 WBC 7.1 RBC 3.62 Hgb 9.8 L Hct 30.0 L MCV 82.8 MCH 27.2 MCHC 32.8 RDW 21.0 H Plt Count 294 MPV 8.2 PT with INR 13.60 H INR 1.15 H PTT (Actin FS) 45.3 H Sodium 135 L Potassium 4.4 Chloride 105 Carbon Dioxide 24 Anion Gap 6 L BUN 43 H Creatinine 1.3 Creat Clearance w eGFR 39.93 POC Glucometer Random Glucose 227 H Calcium 8.3 L Total Bilirubin 0.4 AST 31 ALT 18 Alkaline Phosphatase 162 H Total Protein 7.5 Albumin 2.0 L 12/19/18 12/19/18 12/19/18 05:38 10:59 13:00 WBC RBC Hgb Hct MCV MCH MCHC RDW Plt Count MPV PT with INR INR PTT (Actin FS) 62.5 H Sodium Potassium Chloride Carbon Dioxide Anion Gap BUN Creatinine Creat Clearance w eGFR POC Glucometer 240 246 Random Glucose Calcium Total Bilirubin AST ALT Alkaline Phosphatase Total Protein Albumin Active Medications Generic Name Dose Route Start Last Admin Trade Name Freq PRN Reason Stop Dose Admin Acetaminophen 1,000 mg 12/14/18 19:52 12/19/18 10:49 Ofirmev Injection - IVPB 1,000 mg Q6H PRN Administration Pain Level 4-10 Chlorhexidine Gluconate 1 applic 12/13/18 22:00 12/18/18 22:41 Hibiclens For Decolonization - TP 1 applic HS [facility] Administration Clonidine HCl 0.2 mg 12/20/18 10:00 Catapres Tts Patch - TD Q7D@1000 [facility] Diltiazem HCl 10 mg 12/14/18 19:52 Cardizem Injection - IVPUSH Q4H PRN TACHYCARDIA Diphenhydramine HCl 25 mg 12/14/18 19:52 Benadryl Injection - IVPB Q6H PRN ITCHING Diltiazem HCl 125 mg/ Sodium 125 mls @ 5 mls/hr 12/14/18 19:52 12/18/18 21:20 Chloride IVPB Not Given TITR [facility] Protocol 5 MG/HR Ceftriaxone Sodium 2 gm/ 100 mls @ 100 mls/hr 12/16/18 16:15 12/19/18 09:34 Dextrose IVPB 12/20/18 16:14 100 mls/hr DAILY [facility] Administration Protocol Heparin Sodium (Porcine) 25, 500 mls @ 18 mls/hr 12/16/18 16:30 12/19/18 07: 26 000 unit/ Sodium Chloride IV 1,450 unit/hr TITR [facility] 29 mls/hr Titration Protocol 900 UNIT/HR Potassium Phosphate 15 mm/ 1,500 mls @ 62.5 mls/hr 12/17/18 16:00 12/18/18 17 :00 Calcium Gluconate 1,000 mg/ IVPB 62.5 mls/hr Magnesium Sulfate 2 gm/ Folic DAILY@1600 [facility] Administration Acid 1 mg/ Multivitamins/ Minerals 10 ml/ Potassium Chloride 30 meq/ Insulin Human Regular 32 units/ Sterile Water/ Amino Acids/ Dextrose Fat Emulsion Intravenous 250 mls @ 20.833 mls/hr 12/19/18 22:00 Intralipid - IV Q48H [facility] Insulin Aspart 1 vial 12/15/18 17:30 12/19/18 11:53 Novolog Vial Sliding Scale - SQ 6 units Q6H [facility] Administration Protocol Metoprolol Tartrate 5 mg 12/14/18 19:52 12/15/18 23:26 Lopressor Injection - IVPUSH 5 mg Q4H PRN Administration HYPERTENSION Ondansetron HCl 4 mg 12/14/18 19:52 Zofran Injection IVPUSH Q4H PRN NAUSEA AND/OR VOMITING ASSESSMENT/PLAN: 72 year old woman PMH DM2, HTN, CKD, nephrolithiasis s/p L ureteral stent, prolonged hospital course after SBO. Admitted to the ICU for rapid Afib w/ RVR and chest tightness. Neuro (& Psych): - A/O x4. No sedating gtts. Endocrine / Nephrology: - Consult Dr. Ram - T2DM. Continue insulin sliding scale. - CKD. Stable and will continue to trend. Cardiovascular: - Consult Dr. Boston - Rapid Afib. Rate controlled on Cardizem IVP PRN and Metoprolol IVP PRN. Cannot transition to pill as pt is NPO per surgery. Digoxin restarted then discontinued after loading dose. - HTN. Continue Clonidine patch. Holding Enalapril given rise in Cr. - HLD holding statin Pulm / Resp: - Stable on room air. - Encourage IS Gastrointestinal: - Consult Dr. Rodney - S/p laparotomy with extensive lysis of adhesions (2 hours), suture repair of right upper quadrant incisional hernia. Plan for transition to LTAC for 6 weeks before further evaluation by Dr. Rafael Calzada from [place]. Insurance denied transfer request yesterday. Will retry transfer after pt has been stable on cardiac drips for several days. - Dressing changed yesterday. Genitourinary: - Consult Dr. Fleming. - Nephrolithiasis s/p left urethral stent Infectious Disease: - Consult Dr. Templeton. - Pt transitioned from Anceph to Ceftriaxone for empiric treatment of UTI. Urine culture no growth at final. Will complete five day course tomorrow. Will discuss further with ID. Musculoskeletal: - Encourage OOB FEN: - TPN per nephrology service Prophylaxis: - DVT: Heparin SQ - GI: Not indicated Dispo: Pt is stable for care to be de-escalated to telemetry for further cardiac monitoring and awaiting placement. Ronny Andersen MD, PGY1 ICU Consult Service Visit type - Emergency Visit Emergency Visit: No - New Patient This patient is new to me today: No - Critical Care Critical Care patient: Yes Total Critical Care Time (in minutes): 39 Critical Care Statement: The care of this patient involved high complexity decision making to prevent further life threatening deterioration of the patient 's condition and/or to evaluate & treat vital organ system(s) failure or risk of failure.
[2018-12-19] MEDS ORDERED: [UNRECOGNIZED DRUG - OTHER] IVPB SCH (16:00)
[2018-12-19] MEDS ORDERED: POTASSIUM PHOSPHATE IVPB SCH (16:00)
[2018-12-19] MEDS ORDERED: CALCIUM GLUCONATE IVPB SCH (16:00)
[2018-12-19] MEDS ORDERED: MAGNESIUM SULFATE IVPB SCH (16:00)
[2018-12-19] MEDS ORDERED: morphine SULFATE 4 MG/ML VIAL IVPUSH PRN ×3 (16:37→16:53)
--- NOTE | 2018-12-19 16:41 | PN ---
Progress Note, Physician - Current Medication List Current Medications: Active Medications Acetaminophen (Ofirmev Injection -) 1,000 mg IVPB Q6H PRN PRN Reason: Pain Level 4-10 Last Admin: 12/19/18 10:49 Dose: 1,000 mg Chlorhexidine Gluconate (Hibiclens For Decolonization -) 1 applic TP HS [facility] Last Admin: 12/18/18 22:41 Dose: 1 applic Clonidine HCl (Catapres Tts Patch -) 0.2 mg TD Q7D@1000 [facility] Diltiazem HCl (Cardizem Injection -) 10 mg IVPUSH Q4H PRN PRN Reason: TACHYCARDIA Diphenhydramine HCl (Benadryl Injection -) 25 mg IVPB Q6H PRN PRN Reason: ITCHING Diltiazem HCl 125 mg/ Sodium (Chloride) 125 mls @ 5 mls/hr IVPB TITR [facility]; Protocol Last Admin: 12/18/18 21:20 Dose: Not Given Ceftriaxone Sodium 2 gm/ (Dextrose) 100 mls @ 100 mls/hr IVPB DAILY [facility]; Protocol Stop: 12/20/18 16:14 Last Admin: 12/19/18 09:34 Dose: 100 mls/hr Heparin Sodium (Porcine) 25, (000 unit/ Sodium Chloride) 500 mls @ 18 mls/hr IV TITR [facility]; Protocol Last Titration: 12/19/18 07:26 Dose: 1,450 unit/hr, 29 mls/hr Potassium Phosphate 15 mm/Calcium Gluconate 1,000 mg/Magnesium Sulfate 2 gm/ Folic Acid 1 mg/ Multivitamins/Minerals 10 ml/ Potassium Chloride 30 meq/ Insulin Human Regular 32 units/ Sterile Water/ Amino Acids/ Dextrose 1,500 mls @ 62.5 mls/hr IVPB DAILY@1600 [facility] Last Admin: 12/18/18 17:00 Dose: 62.5 mls/hr Fat Emulsion Intravenous (Intralipid -) 250 mls @ 20.833 mls/hr IV Q48H [facility] Insulin Aspart (Novolog Vial Sliding Scale -) 1 vial SQ Q6H [facility]; Protocol Last Admin: 12/19/18 11:53 Dose: 6 units Metoprolol Tartrate (Lopressor Injection -) 5 mg IVPUSH Q4H PRN PRN Reason: HYPERTENSION Last Admin: 12/15/18 23:26 Dose: 5 mg Ondansetron HCl (Zofran Injection) 4 mg IVPUSH Q4H PRN PRN Reason: NAUSEA AND/OR VOMITING - Objective Vital Signs: Vital Signs Temperature 98.2 F 12/19/18 16:00 Pulse Rate 104 H 12/19/18 16:00 Respiratory Rate 21 H 12/19/18 16:00 Blood Pressure 138/76 12/19/18 16:00 O2 Sat by Pulse Oximetry (%) 100 12/19/18 08:36 Constitutional: Yes: Anxious, Other HENT: Yes: Atraumatic Neck: Yes: Trachea Midline Cardiovascular: Yes: Tachycardia, Pulse Irregular, S1, S2 Respiratory: Yes: CTA Bilaterally, Diminished Gastrointestinal: Yes: Normal Bowel Sounds, Soft Labs: CBC, BMP 12/19/18 05:30 12/19/18 05:30 INR, PTT INR 1.15 (0.83-1.09) H 12/19/18 05:30 Assessment/Plan 72 year old woman with hx of CKD, Nephrolithiasis, DM who presented with Abd pain secondary to SBO s/p surgical intervention with CHACHA. Renal function stable Urology follow up regarding hydronephrosis and indwelling stent pending. Remains NPO. Will continue the parenteral nutrition. Trend electrolytes daily Donna Tracy MD
--- NOTE | 2018-12-19 16:59 | PN ---
Progress Note, Physician History of Present Illness: POD29 s/p extensive lysis of intestinal adhesions for developing SBO, with suture repair of small RUQ incisional hernia from inside, with findings of previous intestinal reconstruction/hepaticojejunostomy, done years ago after post-cholecystectomy complications per pt. Also with likely PTFE mesh in situ from subsequent incarcerated umbilical hernia repair, was split in upper aspect for laparotomy. Pt postop course complicated by new onset afib with RVR and subsequent identification of enterocutaneous fistula in wound initially opened for spontaneous drainage. HR had been controlled and in sinus on po meds. She had previously tolerated soft diabetic diet, though with marginal po intake. She is now complete NPO with TPN and IV meds only, via PICC. Wound/ fistula management with VAC (white foam at base over necrotic fascia, black over that). Orangey/light brown fluid in wound and VAC canister, low output. Had CTA chest with no evidence of PE, very small pleural effusion. Was transferred to ICU with recurrence of afib with RVR for cardizem drip. Has been ambulating, voiding, minimal bowel movements - had enema and some disimpaction by nurse couple days ago with some effect. Still with abd pain at times, managed with tylenol and morphine prn. She c/o "terrible burning" with urination. UA showed +LE, wbc, some blood, culture grew only yeast-like organism. Ceftriaxone started by ID 4d ago. On heparin drip, since pt cannot take PO meds; PTT therapeutic just today. Was loaded with digoxin and Cardizem drip is off with HR improved. Renal managing TPN with insulin in bag, lipids every other day. Seen and examined just back to bed after using commode - voided, felt like she might be able to move bowels but it hurt badly when she pushed, so was not able to pass anything. Declines MARCELLUS at this time, will check tomorrow. VAC intact with about 475ml fluid in canister. Up in chair and ambulating periodically. Requesting pain medicine now, due for tylenol. - Current Medication List Current Medications: Active Medications Acetaminophen (Ofirmev Injection -) 1,000 mg IVPB Q6H PRN PRN Reason: Pain Level 4-10 Last Admin: 12/19/18 10:49 Dose: 1,000 mg Chlorhexidine Gluconate (Hibiclens For Decolonization -) 1 applic TP HS [facility] Last Admin: 12/18/18 22:41 Dose: 1 applic Clonidine HCl (Catapres Tts Patch -) 0.2 mg TD Q7D@1000 [facility] Diltiazem HCl (Cardizem Injection -) 10 mg IVPUSH Q4H PRN PRN Reason: TACHYCARDIA Diphenhydramine HCl (Benadryl Injection -) 25 mg IVPB Q6H PRN PRN Reason: ITCHING Diltiazem HCl 125 mg/ Sodium (Chloride) 125 mls @ 5 mls/hr IVPB TITR [facility]; Protocol Last Admin: 12/18/18 21:20 Dose: Not Given Ceftriaxone Sodium 2 gm/ (Dextrose) 100 mls @ 100 mls/hr IVPB DAILY [facility]; Protocol Stop: 12/20/18 16:14 Last Admin: 12/19/18 09:34 Dose: 100 mls/hr Heparin Sodium (Porcine) 25, (000 unit/ Sodium Chloride) 500 mls @ 18 mls/hr IV TITR [facility]; Protocol Last Titration: 12/19/18 07:26 Dose: 1,450 unit/hr, 29 mls/hr Potassium Phosphate 15 mm/Calcium Gluconate 1,000 mg/Magnesium Sulfate 2 gm/ Folic Acid 1 mg/ Multivitamins/Minerals 10 ml/ Potassium Chloride 30 meq/ Insulin Human Regular 32 units/ Sterile Water/ Amino Acids/ Dextrose 1,500 mls @ 62.5 mls/hr IVPB DAILY@1600 [facility] Last Admin: 12/18/18 17:00 Dose: 62.5 mls/hr Fat Emulsion Intravenous (Intralipid -) 250 mls @ 20.833 mls/hr IV Q48H [facility] Insulin Aspart (Novolog Vial Sliding Scale -) 1 vial SQ Q6H [facility]; Protocol Last Admin: 12/19/18 11:53 Dose: 6 units Metoprolol Tartrate (Lopressor Injection -) 5 mg IVPUSH Q4H PRN PRN Reason: HYPERTENSION Last Admin: 12/15/18 23:26 Dose: 5 mg Morphine Sulfate (Morphine Sulfate) 4 mg IVPUSH Q4H PRN PRN Reason: Pain Level 7 - 10 BREAKTHROUGH Ondansetron HCl (Zofran Injection) 4 mg IVPUSH Q4H PRN PRN Reason: NAUSEA AND/OR VOMITING - Objective Vital Signs: Vital Signs Temperature 98.2 F 12/19/18 16:00 Pulse Rate 104 H 12/19/18 16:00 Respiratory Rate 21 H 12/19/18 16:00 Blood Pressure 138/76 12/19/18 16:00 O2 Sat by Pulse Oximetry (%) 100 12/19/18 08:36 Vital Signs Period Temp Pulse Resp BP Sys/Pascual Pulse Ox Last 24 Hr 97.8 F-98.4 F 90-113 12- 104-138/64-91 100-100 Constitutional: Yes: No Distress, Calm, Obese Eyes: Yes: Conjunctiva Clear, EOM Intact HENT: Yes: Atraumatic, Normocephalic Gastrointestinal: Yes: Soft, Abdomen, Obese, Tenderness (some to left upper abdomen, very little to right side of incision today; + incisional tenderness). No: Distention ...Rectal Exam: Yes: Deferred (at pt's request) Extremities: No: Cool, Cyanosis Integumentary: Yes: Incision (midline w/VAC). No: Jaundice, Rash Wound/Incision: Yes: Dressing Dry and Intact (VAC with good seal at -125mm cont pressure), Draining (very little since yesterday). No: Dressing Removed Neurological: Yes: Alert, Oriented. No: Unsteady Gait (ambulating with walker/ assistance when up) Labs: CBC, BMP 12/19/18 05:30 12/19/18 05:30 INR, PTT INR 1.15 (0.83-1.09) H 12/19/18 05:30 Problem List - Problems (1) Intestinal adhesions with partial obstruction Assessment/Plan: POD29 s/p extensive lysis of adhesions and RUQ incisional hernia repair s/p hepaticojejunostomy in past with intestinal reconstruction - with dilated/ stagnant loop of anastomotic area had small enterotomy with small yellow fluid leakage repaired in proximal SB ( hepatic limb?) up under RUQ scar, near incisional hernia, minimal contamination POD12 s/p complex I&D of midline postop wound infection low output enterocutaneous fistula present under midportion of midline wound - may be sealing over with granulation tissue VAC changed yesterday; white foam in base, no sig enteric content in wound, good seal obtained COMPLETE NPO with TPN, IV meds only via PICC line from IR pain meds prn - tylenol first line, morphine as needed breakthrough and for dressing changes monitor labs, lytes, glucose TPN per renal prealbumin coming up slowly discussed with Dr. Andersen, ICU team Code(s): K56.51 - INTESTINAL ADHESIONS [BANDS], WITH PARTIAL OBSTRUCTION (2) Infection following a procedure, superficial incisional surgical site, initial encounter Assessment/Plan: culture grew mostly sensitive E. coli, E. faecalis, yeast-like organism Code(s): T81.41XA - INFCT FOL A PROC, SUPERFIC INCISIONAL SURGICAL SITE, INIT (3) Enterocutaneous fistula Assessment/Plan: in context of PTFE mesh in situ in field/wound and underlying abnormal intestinal anatomy will need mesh removal, fistula takedown, reconstruction of abdominal wall discussed with Dr. Calzada at [place] he is ok with transfer to [facility] for complex wound care ([employer] VAC with white foam/ black foam), TPN and telemetry needs he would then see her as outpatient in his office from [facility] at 6 wks postop to decide when to have her transferred to [place] for intervention Code(s): K63.2 - FISTULA OF INTESTINE (4) Persistent postprocedural fistula, initial encounter Assessment/Plan: enterocutaneous fistula continue VAC - white foam in wound base, black over VAC changes 3x weekly - next tomorrow TPN/complete NPO plan is transfer to [facility] for ongoing care, until it is time for evaluation by Dr. Rafael Calzada from [place] (6 wks postop) might be able to try po challenge during LTACH stay/next week to see if fistula output increases per Adelita/KIRILL, request for LTACH approval from insurance was resubmitted today Code(s): T81.83XA - PERSISTENT POSTPROCEDURAL FISTULA, INITIAL ENCOUNTER (5) Incisional hernia, without obstruction or gangrene Code(s): K43.2 - INCISIONAL HERNIA WITHOUT OBSTRUCTION OR GANGRENE (6) Atrial fibrillation with RVR Assessment/Plan: converted back to ALL IV meds, completely NPO cardiology following not on any drips for rate control, just IV prn's maintain lytes in normal range heparin drip started while NPO/Eliquis on hold therapeutic PTT just today for transfer to telemetry shortly - she has a bed Code(s): I48.91 - UNSPECIFIED ATRIAL FIBRILLATION (7) Hypertension Assessment/Plan: cardio managing, IV meds with clonidine patch Code(s): I10 - ESSENTIAL (PRIMARY) HYPERTENSION Qualifiers: Hypertension type: essential hypertension Qualified Code(s): I10 - Essential (primary) hypertension (8) Diabetes mellitus type 2 in obese Assessment/Plan: endo had seen earlier glucose management along with TPN - insulin added to TPN, renal managing Code(s): E11.69 - TYPE 2 DIABETES MELLITUS WITH OTHER SPECIFIED COMPLICATION; E66.9 - OBESITY, UNSPECIFIED (9) S/P ureteral stent placement Assessment/Plan: left ureteral stent in place; management per uro - pt may need laser lithotripsy with stent removal?, off anticoagulation mild increase in left hydronephrosis on last CT now with likely UTI - yeast on culture, on Ceftriaxone urology saw again - deferred stent change for now discussed with Dr. Templeton/ID - will start antifungal given symptoms Code(s): Z96.0 - PRESENCE OF UROGENITAL IMPLANTS (10) Gout Assessment/Plan: home med on hold Code(s): M10.9 - GOUT, UNSPECIFIED Qualifiers: Gout site: toe Gout etiology: unspecified cause Chronicity: unspecified Laterality: unspecified laterality Qualified Code(s): M10.9 - Gout, unspecified (11) CKD (chronic kidney disease) stage 3, GFR 30-59 ml/min Assessment/Plan: nephrology following and managing TPN daily labs BUN/Cr stable 43/1.3 Code(s): N18.3 - CHRONIC KIDNEY DISEASE, STAGE 3 (MODERATE)
[2018-12-19] MEDS ORDERED: ONDANSETRON 4 MG/2 ML VIAL IVPUSH PRN (17:46)
[2018-12-19] MEDS ORDERED: dilTIAZem HCL 50 MG/10 ML - 10 ML VIAL IVPUSH PRN (17:46)
[2018-12-19] MEDS ORDERED: METOPROLOL TARTRATE 5 MG/5 ML VIAL IVPUSH PRN (17:46)
[2018-12-19] MEDS ORDERED: HEPARIN NA (PORCINE) 5,000 UNITS/ML 1ML VIAL IVPUSH PRN ×2 (17:46)
--- NOTE | 2018-12-19 17:48 | PN ---
Progress Note, Physician History of Present Illness: AWAKE, ALERT IN BED CONTINUES TO C/O DYSURIA PAST U/A MANY WBC URINE C/S YLO NO C/O F/C - Current Medication List Current Medications: Active Medications Acetaminophen (Ofirmev Injection -) 1,000 mg IVPB Q6H PRN PRN Reason: Pain Level 4-10 Last Admin: 12/19/18 17:25 Dose: 1,000 mg Chlorhexidine Gluconate (Hibiclens For Decolonization -) 1 applic TP HS [facility] Last Admin: 12/18/18 22:41 Dose: 1 applic Clonidine HCl (Catapres Tts Patch -) 0.2 mg TD Q7D@1000 [facility] Diltiazem HCl (Cardizem Injection -) 10 mg IVPUSH Q4H PRN PRN Reason: TACHYCARDIA Diphenhydramine HCl (Benadryl Injection -) 25 mg IVPB Q6H PRN PRN Reason: ITCHING Diltiazem HCl 125 mg/ Sodium (Chloride) 125 mls @ 5 mls/hr IVPB TITR [facility]; Protocol Last Admin: 12/18/18 21:20 Dose: Not Given Ceftriaxone Sodium 2 gm/ (Dextrose) 100 mls @ 100 mls/hr IVPB DAILY [facility]; Protocol Stop: 12/20/18 16:14 Last Admin: 12/19/18 09:34 Dose: 100 mls/hr Heparin Sodium (Porcine) 25, (000 unit/ Sodium Chloride) 500 mls @ 18 mls/hr IV TITR [facility]; Protocol Last Titration: 12/19/18 07:26 Dose: 1,450 unit/hr, 29 mls/hr Potassium Phosphate 15 mm/Calcium Gluconate 1,000 mg/Magnesium Sulfate 2 gm/ Folic Acid 1 mg/ Multivitamins/Minerals 10 ml/ Potassium Chloride 30 meq/ Insulin Human Regular 32 units/ Sterile Water/ Amino Acids/ Dextrose 1,500 mls @ 62.5 mls/hr IVPB DAILY@1600 [facility] Last Admin: 12/18/18 17:00 Dose: 62.5 mls/hr Fat Emulsion Intravenous (Intralipid -) 250 mls @ 20.833 mls/hr IV Q48H [facility] Insulin Aspart (Novolog Vial Sliding Scale -) 1 vial SQ Q6H [facility]; Protocol Last Admin: 12/19/18 17:24 Dose: 6 units Metoprolol Tartrate (Lopressor Injection -) 5 mg IVPUSH Q4H PRN PRN Reason: HYPERTENSION Last Admin: 12/15/18 23:26 Dose: 5 mg Morphine Sulfate (Morphine Sulfate) 4 mg IVPUSH Q4H PRN PRN Reason: Pain Level 7 - 10 BREAKTHROUGH Ondansetron HCl (Zofran Injection) 4 mg IVPUSH Q4H PRN PRN Reason: NAUSEA AND/OR VOMITING - Objective Vital Signs: Vital Signs Temperature 98.2 F 12/19/18 16:00 Pulse Rate 104 H 12/19/18 16:00 Respiratory Rate 21 H 12/19/18 16:00 Blood Pressure 138/76 12/19/18 16:00 O2 Sat by Pulse Oximetry (%) 100 12/19/18 08:36 Constitutional: Yes: No Distress Eyes: Yes: Conjunctiva Clear Cardiovascular: Yes: Regular Rate and Rhythm, S1, S2 Respiratory: Yes: CTA Bilaterally Gastrointestinal: Yes: Normal Bowel Sounds, Soft. No: Tenderness Edema: Yes Labs: CBC, BMP 12/19/18 05:30 12/19/18 05:30 INR, PTT INR 1.15 (0.83-1.09) H 12/19/18 05:30 Assessment/Plan UTI + URINE C/S YLO ? SIGNIFICANCE HX OBSTRUCTIVE UROPATHY/URETERAL STENT POST OP LAPAROTOMY/ PAN IN LIGHT OF PERSISTANT SYMPTOMS PRESENCE OF URETERAL STENT WILL TREAT YEAST IN URINE
[2018-12-19] MEDS: DILTIAZEM INJECTION 125 MG in SODIUM CHLORIDE 100 ML IVPB SCH (21:30)
[2018-12-19] MEDS: FLUCONAZOLE 200 MG/D5W 100 ML IVPB SCH (21:30)
[2018-12-19] MEDS ORDERED: CHLORHEXIDINE GLUCONATE 4% CLEANSER FOR DECOLONIZATION TP SCH (22:00)
[2018-12-19] MEDS ORDERED: FAT EMULSIONS 250 ML IV SCH ×2 (22:00)
[2018-12-19] MEDS: HEPARIN - 25,000 UNIT in SODIUM CHLORIDE 495 ML IV SCH (23:00)
[2018-12-20] MEDS: INSULIN SLIDING SCALE (NOVOLOG) 1 VIAL SQ SCH ×4 (06:22→22:36)
[2018-12-20] MEDS: morphine SULFATE 4 MG/ML VIAL IVPUSH PRN ×3 (06:24→16:35)
[2018-12-20 06:51] LABS: HEMATOCRIT 26.9 % (32.4-45.2); MCH 27.5 pg (25.7-33.7); MCHC 33.4 g/dl (32.0-36.0); MEAN CELL VOLUME 82.4 fl (80-96); MEAN PLT VOLUME 8.5 fl (7.5-11.1); PLATELET COUNT 275 K/MM3 (134-434); RBC 3.26 M/mm3 (3.60-5.2); RDW 20.8 % (11.6-15.6); WHITE BLOOD COUNT 6.4 K/mm3 (4.0-10.0)
[2018-12-20 08:25] LABS: ANION GAP 9 MMOL/L (8-16); BLOOD UREA NITROGEN 42 mg/dL (7-18); CALCIUM 8.4 mg/dL (8.5-10.1); CHLORIDE 107 mmol/L (98-107); CO2 20 mmol/L (21-32); CREATININE 1.3 mg/dL (0.55-1.3); GLUCOSE,RANDOM 283 mg/dL (74-106); MAGNESIUM 2.4 mg/dL (1.8-2.4); PHOSPHOROUS 3.8 mg/dL (2.5-4.9); POTASSIUM 4.6 mmol/L (3.5-5.1); SODIUM 137 mmol/L (136-145)
[2018-12-20] MEDS ORDERED: PT OWN MED DRAWER 7, Y5N ONE (09:07)
[2018-12-20] MEDS ORDERED: DEXTROSE 5%-WATER 100 ML IVPB ONE (09:08)
--- NOTE | 2018-12-20 09:54 | PN ---
Progress Note, Physician Chief Complaint: no distress Denies CP, SOB TELE: AF with average rates 100bpm - Current Medication List Current Medications: Active Medications Acetaminophen (Ofirmev Injection -) 1,000 mg IVPB Q6H PRN PRN Reason: Pain Level 4-10 Clonidine HCl (Catapres Tts Patch -) 0.2 mg TD Q7D@1000 [facility] Diltiazem HCl (Cardizem Injection -) 10 mg IVPUSH Q4H PRN PRN Reason: TACHYCARDIA Last Admin: 12/19/18 23:29 Dose: 10 mg Diphenhydramine HCl (Benadryl Injection -) 25 mg IVPB Q6H PRN PRN Reason: ITCHING Heparin Sodium (Porcine) (Heparin -) 1,000 unit IVPUSH PRN PRN PRN Reason: Heparin Heparin Sodium (Porcine) (Heparin -) 5,000 unit IVPUSH PRN PRN PRN Reason: Heparin Ceftriaxone Sodium 2 gm/ (Dextrose) 100 mls @ 100 mls/hr IVPB DAILY [facility]; Protocol Fat Emulsion Intravenous (Intralipid -) 250 mls @ 20.833 mls/hr IV Q48H [facility] Last Admin: 12/19/18 22:28 Dose: 20.833 mls/hr Heparin Sodium (Porcine) 25, (000 unit/ Sodium Chloride) 500 mls @ 18 mls/hr IV TITR [facility]; Protocol Last Admin: 12/19/18 23:00 Dose: 1,450 unit/hr, 29 mls/hr Potassium Phosphate 15 mm/Calcium Gluconate 1,000 mg/Magnesium Sulfate 2 gm/ Folic Acid 1 mg/ Multivitamins/Minerals 10 ml/ Potassium Chloride 30 meq/ Insulin Human Regular 32 units/ Sterile Water/ Amino Acids/ Dextrose 1,500 mls @ 62.5 mls/hr IVPB DAILY@1600 [facility] Last Admin: 12/19/18 19:00 Dose: 62.5 mls/hr Diltiazem HCl 125 mg/ Sodium (Chloride) 125 mls @ 5 mls/hr IVPB TITR [facility]; Protocol Last Admin: 12/19/18 21:30 Dose: 5 mg/hr, 5 mls/hr Fluconazole (Diflucan 200 Mg/D5w Premixed Ivpb -) 100 mls @ 100 mls/hr IVPB DAILY [facility] Last Admin: 12/19/18 21:30 Dose: 100 mls/hr Insulin Aspart (Novolog Vial Sliding Scale -) [address] [facility]; Protocol Last Admin: 12/20/18 06:22 Dose: 8 units Metoprolol Tartrate (Lopressor Injection -) 5 mg IVPUSH Q4H PRN PRN Reason: HYPERTENSION Morphine Sulfate (Morphine Sulfate) 4 mg IVPUSH Q4H PRN PRN Reason: Pain Level 7 - 10 BREAKTHROUGH Last Admin: 12/20/18 06:24 Dose: 4 mg Ondansetron HCl (Zofran Injection) 4 mg IVPUSH Q4H PRN PRN Reason: NAUSEA AND/OR VOMITING - Objective Vital Signs: Vital Signs Temperature 98 F 12/20/18 06:00 Pulse Rate 120 H 12/20/18 06:00 Respiratory Rate 20 12/20/18 06:00 Blood Pressure 133/90 12/20/18 06:00 O2 Sat by Pulse Oximetry (%) 95 12/19/18 21:00 Cardiovascular: Yes: Pulse Irregular Respiratory: Yes: CTA Bilaterally Gastrointestinal: Yes: Soft (no rebound or guarding) Edema: No Neurological: Yes: Alert, Oriented Labs: CBC, BMP 12/20/18 05:30 12/20/18 05:30 INR, PTT INR 1.15 (0.83-1.09) H 12/19/18 05:30 Laboratory Tests 12/16/18 12/16/18 12/20/18 05:30 05:30 05:30 WBC 5.6 Hgb 8.9 L Plt Count 308 PTT (Actin FS) 62.6 H Sodium 138 Potassium 3.9 BUN 38 H Creatinine 1.3 Calcium 8.0 L Phosphorus 3.4 Magnesium 2.3 12/20/18 12/20/18 05:30 05:30 WBC 6.4 Hgb 9.0 L Plt Count 275 PTT (Actin FS) Sodium 137 Potassium 4.6 BUN Creatinine 1.3 Calcium Phosphorus Magnesium Assessment/Plan IMP: 1. Atrial fibrillation 2. Hypertension REC: 1. Tolerating heparin gtts well 2. Rates are adequately controlled on current meds. 3. BP well controlled. 4. Cont tele 5. Surgery following.
[2018-12-20] MEDS ORDERED: cloNIDine-TTS 0.2 MG/24 HOURS PATCH.TDWK TD SCH ×2 (10:00)
[2018-12-20] MEDS ORDERED: CEFTRIAXONE 2 GM in DEXTROSE 5%-WATER 100 ML IVPB SCH (10:00)
[2018-12-20] MEDS: ACETAMINOPHEN 1000 MG/100 ML VIAL (NON FORMULARY) IVPB PRN ×2 (11:07→20:10)
[2018-12-20 11:14] VITALS: BMI 31.2
[2018-12-20] MEDS: FLUCONAZOLE 200 MG/D5W 100 ML IVPB SCH (11:52)
--- NOTE | 2018-12-20 12:02 | PN ---
Progress Note (short form) - Note Progress Note: Renal follow up for CHACHA Pt seen and examined in the ICU awake and alert complains of abd pain no sob, cp, fever ,chills on TPN Vital Signs Temperature 98 F 12/20/18 06:00 Pulse Rate 120 H 12/20/18 06:00 Respiratory Rate 20 12/20/18 06:00 Blood Pressure 133/90 12/20/18 06:00 O2 Sat by Pulse Oximetry (%) 95 12/19/18 21:00 Intake & Output 12/17/18 12/18/18 12/19/18 12/20/18 23:59 23:59 23:59 23:59 Intake Total 1394 4815 626.5 1393 Output Total 825 2640 200 50 Balance 569 2175 426.5 1343 Weight 85.457 kg 85.457 kg NAD tachycardic Dec BS slight abd tenderness no edema CBC, BMP 12/20/18 05:30 12/20/18 05:30 Current Medications Acetaminophen (Ofirmev Injection -) 1,000 mg IVPB Q6H PRN PRN Reason: Pain Level 4-10 Last Admin: 12/20/18 11:07 Dose: 1,000 mg Clonidine HCl (Catapres Tts Patch -) 0.2 mg TD Q7D@1000 [facility] Last Admin: 12/20/18 11:02 Dose: 0.2 mg Diltiazem HCl (Cardizem Injection -) 10 mg IVPUSH Q4H PRN PRN Reason: TACHYCARDIA Last Admin: 12/19/18 23:29 Dose: 10 mg Diphenhydramine HCl (Benadryl Injection -) 25 mg IVPB Q6H PRN PRN Reason: ITCHING Heparin Sodium (Porcine) (Heparin -) 1,000 unit IVPUSH PRN PRN PRN Reason: Heparin Heparin Sodium (Porcine) (Heparin -) 5,000 unit IVPUSH PRN PRN PRN Reason: Heparin Ceftriaxone Sodium 2 gm/ (Dextrose) 100 mls @ 100 mls/hr IVPB DAILY [facility]; Protocol Last Admin: 12/20/18 10:38 Dose: 100 mls/hr Fat Emulsion Intravenous (Intralipid -) 250 mls @ 20.833 mls/hr IV Q48H [facility] Last Admin: 12/19/18 22:28 Dose: 20.833 mls/hr Heparin Sodium (Porcine) 25, (000 unit/ Sodium Chloride) 500 mls @ 18 mls/hr IV TITR [facility]; Protocol Last Admin: 12/19/18 23:00 Dose: 1,450 unit/hr, 29 mls/hr Potassium Phosphate 15 mm/Calcium Gluconate 1,000 mg/Magnesium Sulfate 2 gm/ Folic Acid 1 mg/ Multivitamins/Minerals 10 ml/ Potassium Chloride 30 meq/ Insulin Human Regular 32 units/ Sterile Water/ Amino Acids/ Dextrose 1,500 mls @ 62.5 mls/hr IVPB DAILY@1600 [facility] Last Admin: 12/19/18 19:00 Dose: 62.5 mls/hr Diltiazem HCl 125 mg/ Sodium (Chloride) 125 mls @ 5 mls/hr IVPB TITR [facility]; Protocol Last Admin: 12/19/18 21:30 Dose: 5 mg/hr, 5 mls/hr Fluconazole (Diflucan 200 Mg/D5w Premixed Ivpb -) 100 mls @ 100 mls/hr IVPB DAILY [facility] Last Admin: 12/20/18 11:52 Dose: 100 mls/hr Insulin Aspart (Novolog Vial Sliding Scale -) 1 vial SQ Q6H [facility]; Protocol Last Admin: 12/20/18 06:22 Dose: 8 units Metoprolol Tartrate (Lopressor Injection -) 5 mg IVPUSH Q4H PRN PRN Reason: HYPERTENSION Morphine Sulfate (Morphine Sulfate) 4 mg IVPUSH Q4H PRN PRN Reason: Pain Level 7 - 10 BREAKTHROUGH Last Admin: 12/20/18 10:38 Dose: 4 mg Ondansetron HCl (Zofran Injection) 4 mg IVPUSH Q4H PRN PRN Reason: NAUSEA AND/OR VOMITING 72 year old woman with hx of CKD, Nephrolithiasis, DM who presented with Abd pain secondary to SBO s/p surgical intervention with CHACHA. #Recurrent CHACHA #SBO s/p OR #enterocutaneous fistula #Prolonged NPO #Hypoalbuminema #Abd wound infection #LE edema #Chest Pain/Tightness Renal function stable Urology follow up regarding hydrneophrosis and indwelling stent Will continue TPN as patient remains NPO, volume increased to 1.6L daily Insulin 32 units in TPN Lipid to be given 3x weekly on IV cardizem and heparin as per cardiology Continue clonidine patch Trend electrolytes daily Thank you Ethan Ram DO
--- NOTE | 2018-12-20 13:26 | PN ---
Progress Note, Physician Chief Complaint: on tele lacey iv cardizem iv heparin TPN - Current Medication List Current Medications: Active Medications Acetaminophen (Ofirmev Injection -) 1,000 mg IVPB Q6H PRN PRN Reason: Pain Level 4-10 Last Admin: 12/20/18 11:07 Dose: 1,000 mg Clonidine HCl (Catapres Tts Patch -) 0.2 mg TD Q7D@1000 [facility] Last Admin: 12/20/18 11:02 Dose: 0.2 mg Diltiazem HCl (Cardizem Injection -) 10 mg IVPUSH Q4H PRN PRN Reason: TACHYCARDIA Last Admin: 12/19/18 23:29 Dose: 10 mg Diphenhydramine HCl (Benadryl Injection -) 25 mg IVPB Q6H PRN PRN Reason: ITCHING Heparin Sodium (Porcine) (Heparin -) 1,000 unit IVPUSH PRN PRN PRN Reason: Heparin Heparin Sodium (Porcine) (Heparin -) 5,000 unit IVPUSH PRN PRN PRN Reason: Heparin Ceftriaxone Sodium 2 gm/ (Dextrose) 100 mls @ 100 mls/hr IVPB DAILY [facility]; Protocol Last Admin: 12/20/18 10:38 Dose: 100 mls/hr Heparin Sodium (Porcine) 25, (000 unit/ Sodium Chloride) 500 mls @ 18 mls/hr IV TITR [facility]; Protocol Last Admin: 12/19/18 23:00 Dose: 1,450 unit/hr, 29 mls/hr Potassium Phosphate 15 mm/Calcium Gluconate 1,000 mg/Magnesium Sulfate 2 gm/ Folic Acid 1 mg/ Multivitamins/Minerals 10 ml/ Potassium Chloride 30 meq/ Insulin Human Regular 32 units/ Sterile Water/ Amino Acids/ Dextrose 1,500 mls @ 62.5 mls/hr IVPB DAILY@1600 [facility] Stop: 12/20/18 15:59 Last Admin: 12/19/18 19:00 Dose: 62.5 mls/hr Diltiazem HCl 125 mg/ Sodium (Chloride) 125 mls @ 5 mls/hr IVPB TITR [facility]; Protocol Last Admin: 12/19/18 21:30 Dose: 5 mg/hr, 5 mls/hr Fluconazole (Diflucan 200 Mg/D5w Premixed Ivpb -) 100 mls @ 100 mls/hr IVPB DAILY [facility] Last Admin: 12/20/18 11:52 Dose: 100 mls/hr Fat Emulsion Intravenous (Intralipid -) 250 mls @ 20.833 mls/hr IV TuThSa [facility] Potassium Phosphate 15 mm/Calcium Gluconate 1,000 mg/Magnesium Sulfate 2 gm/ Folic Acid 1 mg/ Multivitamins/Minerals 10 ml/ Potassium Chloride 30 meq/ Insulin Human Regular 32 units/ Sterile Water/ Amino Acids/ Dextrose 1,600 mls @ 66.6 mls/hr IVPB DAILY@1600 [facility] Insulin Aspart (Novolog Vial Sliding Scale -) 1 vial SQ Q6H [facility]; Protocol Last Admin: 12/20/18 12:32 Dose: 6 units Metoprolol Tartrate (Lopressor Injection -) 5 mg IVPUSH Q4H PRN PRN Reason: HYPERTENSION Morphine Sulfate (Morphine Sulfate) 4 mg IVPUSH Q4H PRN PRN Reason: Pain Level 7 - 10 BREAKTHROUGH Last Admin: 12/20/18 10:38 Dose: 4 mg Ondansetron HCl (Zofran Injection) 4 mg IVPUSH Q4H PRN PRN Reason: NAUSEA AND/OR VOMITING - Objective Vital Signs: Vital Signs Temperature 97.9 F 12/20/18 10:00 Pulse Rate 111 H 12/20/18 10:00 Respiratory Rate 16 12/20/18 10:00 Blood Pressure 120/79 12/20/18 10:00 O2 Sat by Pulse Oximetry (%) 96 12/20/18 09:00 Constitutional: Yes: Calm Cardiovascular: Yes: Pulse Irregular, S1, S2 Respiratory: Yes: CTA Bilaterally Gastrointestinal: Yes: Tenderness (slight), Other (wound vac) Neurological: Yes: Alert, Oriented Labs: CBC, BMP 12/20/18 05:30 12/20/18 05:30 INR, PTT INR 1.15 (0.83-1.09) H 12/19/18 05:30 Problem List - Problems (1) Atrial fibrillation with RVR Assessment/Plan: iv cardizem iv heparin started monitoring h/h (2) Abdominal pain Assessment/Plan: 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 fistula now strict NPO no po meds wound vac in place in midline monitor lytes TPN via picc line needs about 6 weeks bowel rest and then [facility] for further surgical management iv pain control [id number] Microbiology 12/07/18 20:15 Incision Gram Stain - Final 12/07/18 20:15 Incision Wound Culture - Final Enterococcus Faecalis Escherichia Coli Yeast Like Organism Code(s): R10.9 - UNSPECIFIED ABDOMINAL PAIN Qualifiers: Abdominal location: unspecified location Qualified Code(s): R10.9 - Unspecified abdominal pain (3) S/P ureteral stent placement Assessment/Plan: seen by urology - to change stent once medically stable uti iv abx for now lithrotripsy as outpatient Code(s): Z96.0 - PRESENCE OF UROGENITAL IMPLANTS (4) Diabetes mellitus type 2 in obese Assessment/Plan: bgm noted insulin in TPN consult noted sliding scale Code(s): E11.69 - TYPE 2 DIABETES MELLITUS WITH OTHER SPECIFIED COMPLICATION; E66.9 - OBESITY, UNSPECIFIED (5) Adrenal adenoma Assessment/Plan: dexa supression test failed will need repeat test later as outpatient per endocrine Code(s): D35.00 - BENIGN NEOPLASM OF UNSPECIFIED ADRENAL GLAND (6) Hypertension Assessment/Plan: clonidine patch increased to .2 mg Code(s): I10 - ESSENTIAL (PRIMARY) HYPERTENSION Qualifiers: Hypertension type: essential hypertension Qualified Code(s): I10 - Essential (primary) hypertension (7) UTI (urinary tract infection) Assessment/Plan: Microbiology 12/16/18 10:06 Urine - Urine Clean Catch Urine Culture - Final Yeast Like Organism fluconazole iv Code(s): N39.0 - URINARY TRACT INFECTION, SITE NOT SPECIFIED Assessment/Plan patient will need LTAC facillity
--- NOTE | 2018-12-20 15:36 | PN ---
Progress Note, Physician History of Present Illness: POD30 s/p extensive lysis of intestinal adhesions for developing SBO, with suture repair of small RUQ incisional hernia from inside, with findings of previous intestinal reconstruction/hepaticojejunostomy, done years ago after post-cholecystectomy complications per pt. Also with likely PTFE mesh in situ from subsequent incarcerated umbilical hernia repair, was split in upper aspect for laparotomy. 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 HR had been controlled and in sinus on po meds and she was on Eliquis until all po meds stopped. She had previously tolerated soft diabetic diet, though with marginal po intake. She is now complete NPO with TPN and IV meds only, via PICC. Wound/ fistula management with VAC (white foam at base over necrotic fascia, black over that). Orangey/light brown fluid in wound and VAC canister, low output. At last VAC change 2d ago, minimal to no enteric content in wound - site may be sealing over. Renal managing TPN with insulin in bag, lipids every other day. Had CTA chest with no evidence of PE, very small pleural effusion. Was transferred to ICU with recurrence of afib with RVR for cardizem drip, was given digoxin load and Cardizem drip stopped, with prn IV meds only. Transferred back to telemetry last night with resumption of cardizem drip at low dose - cardiology plans to wean back off over the weekend. Also on heparin drip, since pt cannot take PO meds; PTT therapeutic. She c/o burning with urination last weekend. UA showed +LE, wbc, some blood, culture grew only yeast-like organism. Ceftriaxone started by ID 5d ago. Diflucan started yesterday. Has had only few bowel movements in last week - had enema and some disimpaction by nurse couple days ago with some effect but still feels full. Still with upper abd pain at times, managed with tylenol and morphine prn. Seen and examined in bed. C/O some abdominal soreness, had much worse pain earlier this morning. VAC intact with about 500ml fluid in canister. Up in chair and ambulating periodically, doing well with walker and assistance for all her lines/tubes. Uses commode at bedside with assistance. - Current Medication List Current Medications: Active Medications Acetaminophen (Ofirmev Injection -) 1,000 mg IVPB Q6H PRN PRN Reason: Pain Level 4-10 Last Admin: 12/20/18 11:07 Dose: 1,000 mg Clonidine HCl (Catapres Tts Patch -) 0.2 mg TD Q7D@1000 [facility] Last Admin: 12/20/18 11:02 Dose: 0.2 mg Diltiazem HCl (Cardizem Injection -) 10 mg IVPUSH Q4H PRN PRN Reason: TACHYCARDIA Last Admin: 12/19/18 23:29 Dose: 10 mg Diphenhydramine HCl (Benadryl Injection -) 25 mg IVPB Q6H PRN PRN Reason: ITCHING Heparin Sodium (Porcine) (Heparin -) 1,000 unit IVPUSH PRN PRN PRN Reason: Heparin Heparin Sodium (Porcine) (Heparin -) 5,000 unit IVPUSH PRN PRN PRN Reason: Heparin Ceftriaxone Sodium 2 gm/ (Dextrose) 100 mls @ 100 mls/hr IVPB DAILY [facility]; Protocol Last Admin: 12/20/18 10:38 Dose: 100 mls/hr Heparin Sodium (Porcine) 25, (000 unit/ Sodium Chloride) 500 mls @ 18 mls/hr IV TITR [facility]; Protocol Last Admin: 12/19/18 23:00 Dose: 1,450 unit/hr, 29 mls/hr Potassium Phosphate 15 mm/Calcium Gluconate 1,000 mg/Magnesium Sulfate 2 gm/ Folic Acid 1 mg/ Multivitamins/Minerals 10 ml/ Potassium Chloride 30 meq/ Insulin Human Regular 32 units/ Sterile Water/ Amino Acids/ Dextrose 1,500 mls @ 62.5 mls/hr IVPB DAILY@1600 [facility] Stop: 12/20/18 15:59 Last Admin: 12/19/18 19:00 Dose: 62.5 mls/hr Diltiazem HCl 125 mg/ Sodium (Chloride) 125 mls @ 5 mls/hr IVPB TITR [facility]; Protocol Last Admin: 12/19/18 21:30 Dose: 5 mg/hr, 5 mls/hr Fluconazole (Diflucan 200 Mg/D5w Premixed Ivpb -) 100 mls @ 100 mls/hr IVPB DAILY [facility] Last Admin: 12/20/18 11:52 Dose: 100 mls/hr Fat Emulsion Intravenous (Intralipid -) 250 mls @ 20.833 mls/hr IV TuThSa [facility] Potassium Phosphate 15 mm/Calcium Gluconate 1,000 mg/Magnesium Sulfate 2 gm/ Folic Acid 1 mg/ Multivitamins/Minerals 10 ml/ Potassium Chloride 30 meq/ Insulin Human Regular 32 units/ Sterile Water/ Amino Acids/ Dextrose 1,600 mls @ 66.6 mls/hr IVPB DAILY@1600 [facility] Insulin Aspart (Novolog Vial Sliding Scale -) 1 vial SQ Q6H [facility]; Protocol Last Admin: 12/20/18 12:32 Dose: 6 units Metoprolol Tartrate (Lopressor Injection -) 5 mg IVPUSH Q4H PRN PRN Reason: HYPERTENSION Morphine Sulfate (Morphine Sulfate) 4 mg IVPUSH Q4H PRN PRN Reason: Pain Level 7 - 10 BREAKTHROUGH Last Admin: 12/20/18 10:38 Dose: 4 mg Ondansetron HCl (Zofran Injection) 4 mg IVPUSH Q4H PRN PRN Reason: NAUSEA AND/OR VOMITING - Objective Vital Signs: Vital Signs Temperature 97.9 F 12/20/18 13:37 Pulse Rate 117 H 12/20/18 13:37 Respiratory Rate 19 12/20/18 13:37 Blood Pressure 123/72 12/20/18 13:37 O2 Sat by Pulse Oximetry (%) 96 12/20/18 09:00 Vital Signs Period Temp Pulse Resp BP Sys/Pascual Pulse Ox Last 24 Hr 97.7 F-98.6 F 70-126 16-21 120-148/66-94 95-96 Constitutional: Yes: No Distress, Calm, Obese Eyes: Yes: Conjunctiva Clear, EOM Intact HENT: Yes: Atraumatic, Normocephalic Gastrointestinal: Yes: Soft, Abdomen, Obese, Tenderness (mild left upper, less on right today, + incisional). No: Distention ...Rectal Exam: Yes: Hemorrhoids/External, Sphincter Tone Normal, Other (lots of soft, mushy, orange stool in vault - evacuated few smears but very uncomfortable for patient) Extremities: No: Cool, Cyanosis Integumentary: Yes: Incision (midline w/VAC). No: Jaundice, Rash Wound/Incision: Yes: Dressing Dry and Intact (VAC intact at -125mm cont pressure ), Dressing Removed (and VAC changed with white foam strip in base, black strip over that, larger area of black foam bridged over top for trac-pad), Draining ( very little, now serous), Unapproximated (wound alonso pink, clean granulating, coming up to skin surface, nearly flat except for midline/base; some residual necrotic fascia in middle/base with granulation underneath and split mesh visible in lower half/third of wound to each side; wound measures about 13 x 4 x 1.5cm deep (in [place])). No: Reddened, Bleeding Neurological: Yes: Alert, Oriented Labs: CBC, BMP 12/20/18 05:30 12/20/18 05:30 PTT 62 Problem List - Problems (1) Intestinal adhesions with partial obstruction Assessment/Plan: POD30 s/p extensive lysis of adhesions and RUQ incisional hernia repair s/p hepaticojejunostomy in past with intestinal reconstruction - with dilated/ stagnant loop of anastomotic area had small enterotomy with small yellow fluid leakage repaired in proximal SB ( hepatic limb?) up under RUQ scar, near incisional hernia, minimal contamination POD13 s/p complex I&D of midline postop wound infection low output enterocutaneous fistula present under midportion of midline wound - appears to be sealing over with granulation tissue VAC changed - white foam in base, black foam strip over, no enteric content in wound, good seal obtained COMPLETE NPO with TPN, IV meds only via PICC line from IR pain meds prn - tylenol first line, morphine as needed breakthrough and for dressing changes monitor labs, lytes, glucose TPN per renal prealbumin was up a bit earlier in week Code(s): K56.51 - INTESTINAL ADHESIONS [BANDS], WITH PARTIAL OBSTRUCTION (2) Infection following a procedure, superficial incisional surgical site, initial encounter Assessment/Plan: wound culture grew mostly sensitive E. coli, E. faecalis, yeast-like organism Code(s): T81.41XA - INFCT FOL A PROC, SUPERFIC INCISIONAL SURGICAL SITE, INIT (3) Enterocutaneous fistula Assessment/Plan: in context of PTFE mesh in situ in field/wound and underlying abnormal intestinal anatomy will need mesh removal, fistula takedown, reconstruction of abdominal wall discussed with Dr. Calzada at [place] he is ok with transfer to [facility] for complex wound care ([facility] VAC with white foam/ black foam), TPN and telemetry needs he would then see her as outpatient in his office from [facility] at 6 wks postop to decide when to have her transferred to [place] for intervention Code(s): K63.2 - FISTULA OF INTESTINE (4) Persistent postprocedural fistula, initial encounter Assessment/Plan: enterocutaneous fistula - may be closing continue TPN/complete NPO continue VAC - white foam in wound base, black over changed today - no enteric content in wound currently VAC changes 3x weekly - next on Sunday, with plan to transfer then to [facility] for ongoing care, until it is time for evaluation by Dr. Rafael Calzada from [place] (6 wks postop) will touch base with [facility] reps so they can hopefully continue to follow her there and assist with VAC care/changes while there spoke with Shala biomedical engineering technologist today and [facility] transfer was approved pending bed availability - anticipate for Sunday might be able to try po challenge during LTACH stay to see if VAC/fistula output increases Code(s): T81.83XA - PERSISTENT POSTPROCEDURAL FISTULA, INITIAL ENCOUNTER (5) Incisional hernia, without obstruction or gangrene Code(s): K43.2 - INCISIONAL HERNIA WITHOUT OBSTRUCTION OR GANGRENE (6) Atrial fibrillation with RVR Assessment/Plan: converted back to ALL IV meds, completely NPO cardiology following cardizem drip was resumed on transfer back to telemetry - cardio plans to wean back off over weekend if possible maintain lytes in normal range heparin drip while NPO/Eliquis on hold PTT therapeutic Code(s): I48.91 - UNSPECIFIED ATRIAL FIBRILLATION (7) Hypertension Assessment/Plan: cardio managing, IV meds with clonidine patch Code(s): I10 - ESSENTIAL (PRIMARY) HYPERTENSION Qualifiers: Hypertension type: essential hypertension Qualified Code(s): I10 - Essential (primary) hypertension (8) Diabetes mellitus type 2 in obese Assessment/Plan: ginny had seen earlier (also with incidental adrenal nodule - will need outpatient f/u testing) glucose management along with TPN - insulin added to TPN, renal managing Code(s): E11.69 - TYPE 2 DIABETES MELLITUS WITH OTHER SPECIFIED COMPLICATION; E66.9 - OBESITY, UNSPECIFIED (9) S/P ureteral stent placement Assessment/Plan: left ureteral stent in place since September; management per uro - pt may need laser lithotripsy with stent removal or exchange, ?as outpatient/while off anticoagulation mild increase in left hydronephrosis on last CT urology saw again - deferred stent change for now symptomatic UTI - yeast on culture, on Ceftriaxone (D5) and Diflucan (D2) ?duration of Ceftriaxone? ID following Code(s): Z96.0 - PRESENCE OF UROGENITAL IMPLANTS (10) Gout Assessment/Plan: home med on hold Code(s): M10.9 - GOUT, UNSPECIFIED Qualifiers: Gout site: toe Gout etiology: unspecified cause Chronicity: unspecified Laterality: unspecified laterality Qualified Code(s): M10.9 - Gout, unspecified (11) CKD (chronic kidney disease) stage 3, GFR 30-59 ml/min Assessment/Plan: nephrology following and managing TPN daily labs BUN/Cr stable Code(s): N18.3 - CHRONIC KIDNEY DISEASE, STAGE 3 (MODERATE)
--- NOTE | 2018-12-20 15:56 | PN ---
Progress Note, Physician History of Present Illness: PULMONARY ALERT,OOB-CHAIR,-SOB,-CP - Current Medication List Current Medications: Active Medications Acetaminophen (Ofirmev Injection -) 1,000 mg IVPB Q6H PRN PRN Reason: Pain Level 4-10 Last Admin: 12/20/18 11:07 Dose: 1,000 mg Clonidine HCl (Catapres Tts Patch -) 0.2 mg TD Q7D@1000 [facility] Last Admin: 12/20/18 11:02 Dose: 0.2 mg Diltiazem HCl (Cardizem Injection -) 10 mg IVPUSH Q4H PRN PRN Reason: TACHYCARDIA Last Admin: 12/19/18 23:29 Dose: 10 mg Diphenhydramine HCl (Benadryl Injection -) 25 mg IVPB Q6H PRN PRN Reason: ITCHING Heparin Sodium (Porcine) (Heparin -) 1,000 unit IVPUSH PRN PRN PRN Reason: Heparin Heparin Sodium (Porcine) (Heparin -) 5,000 unit IVPUSH PRN PRN PRN Reason: Heparin Ceftriaxone Sodium 2 gm/ (Dextrose) 100 mls @ 100 mls/hr IVPB DAILY [facility]; Protocol Last Admin: 12/20/18 10:38 Dose: 100 mls/hr Heparin Sodium (Porcine) 25, (000 unit/ Sodium Chloride) 500 mls @ 18 mls/hr IV TITR [facility]; Protocol Last Admin: 12/19/18 23:00 Dose: 1,450 unit/hr, 29 mls/hr Potassium Phosphate 15 mm/Calcium Gluconate 1,000 mg/Magnesium Sulfate 2 gm/ Folic Acid 1 mg/ Multivitamins/Minerals 10 ml/ Potassium Chloride 30 meq/ Insulin Human Regular 32 units/ Sterile Water/ Amino Acids/ Dextrose 1,500 mls @ 62.5 mls/hr IVPB DAILY@1600 [facility] Stop: 12/20/18 15:59 Last Admin: 12/19/18 19:00 Dose: 62.5 mls/hr Diltiazem HCl 125 mg/ Sodium (Chloride) 125 mls @ 5 mls/hr IVPB TITR [facility]; Protocol Last Admin: 12/19/18 21:30 Dose: 5 mg/hr, 5 mls/hr Fluconazole (Diflucan 200 Mg/D5w Premixed Ivpb -) 100 mls @ 100 mls/hr IVPB DAILY [facility] Last Admin: 12/20/18 11:52 Dose: 100 mls/hr Fat Emulsion Intravenous (Intralipid -) 250 mls @ 20.833 mls/hr IV TuThSa [facility] Potassium Phosphate 15 mm/Calcium Gluconate 1,000 mg/Magnesium Sulfate 2 gm/ Folic Acid 1 mg/ Multivitamins/Minerals 10 ml/ Potassium Chloride 30 meq/ Insulin Human Regular 32 units/ Sterile Water/ Amino Acids/ Dextrose 1,600 mls @ 66.6 mls/hr IVPB DAILY@1600 [facility] Insulin Aspart (Novolog Vial Sliding Scale -) 1 vial SQ Q6H [facility]; Protocol Last Admin: 12/20/18 12:32 Dose: 6 units Metoprolol Tartrate (Lopressor Injection -) 5 mg IVPUSH Q4H PRN PRN Reason: HYPERTENSION Morphine Sulfate (Morphine Sulfate) 4 mg IVPUSH Q4H PRN PRN Reason: Pain Level 7 - 10 BREAKTHROUGH Last Admin: 12/20/18 10:38 Dose: 4 mg Ondansetron HCl (Zofran Injection) 4 mg IVPUSH Q4H PRN PRN Reason: NAUSEA AND/OR VOMITING - Objective Vital Signs: Vital Signs Temperature 97.9 F 12/20/18 13:37 Pulse Rate 117 H 12/20/18 13:37 Respiratory Rate 19 12/20/18 13:37 Blood Pressure 123/72 12/20/18 13:37 O2 Sat by Pulse Oximetry (%) 96 12/20/18 09:00 Constitutional: Yes: Well Nourished, Calm Eyes: Yes: WNL HENT: Yes: WNL Neck: Yes: WNL Cardiovascular: Yes: Pulse Irregular, S1, S2 Respiratory: Yes: Diminished Gastrointestinal: Yes: Normal Bowel Sounds, Soft Extremities: Yes: WNL Edema: No Labs: CBC, BMP 12/20/18 05:30 12/20/18 05:30 INR, PTT INR 1.15 (0.83-1.09) H 12/19/18 05:30 Problem List - Problems (1) Anemia Code(s): D64.9 - ANEMIA, UNSPECIFIED (2) Atrial fibrillation with RVR Code(s): I48.91 - UNSPECIFIED ATRIAL FIBRILLATION (3) CKD (chronic kidney disease) stage 3, GFR 30-59 ml/min Code(s): N18.3 - CHRONIC KIDNEY DISEASE, STAGE 3 (MODERATE) (4) Diabetes mellitus type 2 in obese Code(s): E11.69 - TYPE 2 DIABETES MELLITUS WITH OTHER SPECIFIED COMPLICATION; E66.9 - OBESITY, UNSPECIFIED (5) Enterocutaneous fistula Code(s): K63.2 - FISTULA OF INTESTINE (6) History of cholecystectomy Code(s): Z90.49 - ACQUIRED ABSENCE OF OTHER SPECIFIED PARTS OF DIGESTIVE TRACT (7) History of common bile duct surgery Code(s): Z98.890 - OTHER SPECIFIED POSTPROCEDURAL STATES (8) Intestinal adhesions with partial obstruction Code(s): K56.51 - INTESTINAL ADHESIONS [BANDS], WITH PARTIAL OBSTRUCTION (9) New onset a-fib Code(s): I48.91 - UNSPECIFIED ATRIAL FIBRILLATION (10) S/P ureteral stent placement Code(s): Z96.0 - PRESENCE OF UROGENITAL IMPLANTS (11) Small bowel obstruction Code(s): K56.609 - UNSP INTESTNL OBST, UNSP TO PARTIAL VERSUS COMPLETE OBST Assessment/Plan ASSESSMENT AND PLAN: Small Bowel Resection/Incisional Hernia s/p ex-lap/PAN/hernia repair Atrial Fibrillation with RVR LV Diastolic Dysfunction Pulmonary HTN CKD HTN DM - pain control - incentive spirometry - anticoagulation - antibiotics - wound care - O2 to keep SpO2 >90% - TPN per renal - DVT prophylaxis - Dian VILLAFANA
[2018-12-20] MEDS: POTASSIUM PHOSPHATE IVPB SCH (16:35)
[2018-12-20] MEDS: MAGNESIUM SULFATE IVPB SCH (16:35)
[2018-12-20] MEDS: CALCIUM GLUCONATE IVPB SCH (16:35)
[2018-12-20] MEDS: [UNRECOGNIZED DRUG - OTHER] IVPB SCH (16:35)
[2018-12-20] MEDS: HEPARIN - 25,000 UNIT in SODIUM CHLORIDE 495 ML IV SCH (18:09)
[2018-12-20] MEDS: DILTIAZEM INJECTION 125 MG in SODIUM CHLORIDE 100 ML IVPB SCH (19:14)
[2018-12-20] MEDS ORDERED: BISACODYL 10 MG SUPP.RECT PR ONE (20:00)
[2018-12-21] MEDS: morphine SULFATE 4 MG/ML VIAL IVPUSH PRN ×3 (00:40→20:50)
[2018-12-21] MEDS: ACETAMINOPHEN 1000 MG/100 ML VIAL (NON FORMULARY) IVPB PRN ×3 (03:21→16:49)
[2018-12-21] MEDS: INSULIN SLIDING SCALE (NOVOLOG) 1 VIAL SQ SCH ×4 (06:46→22:46)
[2018-12-21 08:53] LABS: ALK PHOS 145 U/L (45-117); ANION GAP 11 MMOL/L (8-16); BILIRUBIN,TOTAL 0.3 mg/dL (0.2-1); BLOOD UREA NITROGEN 46 mg/dL (7-18); CALCIUM 8.6 mg/dL (8.5-10.1); CHLORIDE 116 mmol/L (98-107); CO2 22 mmol/L (21-32); CREATININE 1.3 mg/dL (0.55-1.3); GLUCOSE,RANDOM 260 mg/dL (74-106); MAGNESIUM 2.2 mg/dL (1.8-2.4); PHOSPHOROUS 3.6 mg/dL (2.5-4.9); POTASSIUM 5.3 mmol/L (3.5-5.1); SGOT/AST 29 U/L (15-37); SGPT/ALT 19 U/L (13-61); SODIUM 149 mmol/L (136-145); TOT PROT 7.1 g/dl (6.4-8.2); TRIGLYCERIDES 212 mg/dL (0-150)
[2018-12-21] MEDS: FLUCONAZOLE 200 MG/D5W 100 ML IVPB SCH (09:21)
--- NOTE | 2018-12-21 09:54 | PN ---
Progress Note, Physician Chief Complaint: no acute distress History of Present Illness: TELE: AF with average rate 80-100bpm Occasional spikes to 130s in AM and with activity - Current Medication List Current Medications: Active Medications Acetaminophen (Ofirmev Injection -) 1,000 mg IVPB Q6H PRN PRN Reason: Pain Level 4-10 Last Admin: 12/21/18 09:21 Dose: 1,000 mg Clonidine HCl (Catapres Tts Patch -) 0.2 mg TD Q7D@1000 [facility] Last Admin: 12/20/18 11:02 Dose: 0.2 mg Diltiazem HCl (Cardizem Injection -) 10 mg IVPUSH Q4H PRN PRN Reason: TACHYCARDIA Last Admin: 12/19/18 23:29 Dose: 10 mg Diphenhydramine HCl (Benadryl Injection -) 25 mg IVPB Q6H PRN PRN Reason: ITCHING Heparin Sodium (Porcine) (Heparin -) 1,000 unit IVPUSH PRN PRN PRN Reason: Heparin Heparin Sodium (Porcine) (Heparin -) 5,000 unit IVPUSH PRN PRN PRN Reason: Heparin Heparin Sodium (Porcine) 25, (000 unit/ Sodium Chloride) 500 mls @ 18 mls/hr IV TITR [facility]; Protocol Last Admin: 12/20/18 18:09 Dose: 1,450 unit/hr, 29 mls/hr Diltiazem HCl 125 mg/ Sodium (Chloride) 125 mls @ 5 mls/hr IVPB TITR [facility]; Protocol Last Admin: 12/20/18 19:14 Dose: 5 mg/hr, 5 mls/hr Fluconazole (Diflucan 200 Mg/D5w Premixed Ivpb -) 100 mls @ 100 mls/hr IVPB DAILY [facility] Last Admin: 12/21/18 09:21 Dose: 100 mls/hr Fat Emulsion Intravenous (Intralipid -) 250 mls @ 20.833 mls/hr IV TuThSa [facility] Potassium Phosphate 15 mm/Calcium Gluconate 1,000 mg/Magnesium Sulfate 2 gm/ Folic Acid 1 mg/ Multivitamins/Minerals 10 ml/ Potassium Chloride 30 meq/ Insulin Human Regular 32 units/ Sterile Water/ Amino Acids/ Dextrose 1,600 mls @ 66.6 mls/hr IVPB DAILY@1600 [facility] Last Admin: 12/20/18 16:35 Dose: 66.6 mls/hr Insulin Aspart (Novolog Vial Sliding Scale -) 1 vial SQ Q6H [facility]; Protocol Last Admin: 12/21/18 06:46 Dose: 6 units Metoprolol Tartrate (Lopressor Injection -) 5 mg IVPUSH Q4H PRN PRN Reason: HYPERTENSION Morphine Sulfate (Morphine Sulfate) 4 mg IVPUSH Q4H PRN PRN Reason: Pain Level 7 - 10 BREAKTHROUGH Last Admin: 12/21/18 08:02 Dose: 4 mg Ondansetron HCl (Zofran Injection) 4 mg IVPUSH Q4H PRN PRN Reason: NAUSEA AND/OR VOMITING - Objective Vital Signs: Vital Signs Temperature 98.3 F 12/21/18 06:00 Pulse Rate 116 H 12/21/18 06:00 Respiratory Rate 18 12/21/18 06:00 Blood Pressure 139/83 12/21/18 06:00 O2 Sat by Pulse Oximetry (%) 96 12/20/18 21:00 Constitutional: Yes: Calm Cardiovascular: Yes: Pulse Irregular Respiratory: Yes: CTA Bilaterally Gastrointestinal: Yes: Soft (nontender) Edema: No Neurological: Yes: Alert ...Motor Strength: WNL Labs: CBC, BMP 12/20/18 05:30 12/21/18 06:55 INR, PTT INR 1.15 (0.83-1.09) H 12/19/18 05:30 - ....Imaging EKG: Image Reviewed Assessment/Plan IMP: Active issues from CV standpoint 1. Atrial fibrillation 2. Hypertension REC: 1. Tolerating heparin gtts well 2. Rates are adequately controlled on current meds, however remains on Cardizem gtts. Will need to assess what the receiving facility can administer for rate control in this NPO patient (? PRN IV pushes vs Cardizm gtts) 3. BP well controlled. 4. Cont tele 5. Surgery following.
--- NOTE | 2018-12-21 11:35 | PN ---
Progress Note, Physician Chief Complaint: The patient seen in her room. Comfortable. Remains totally NPO. TPN well tolerated. History of Present Illness: The patient had extensive lysis of intestinal adhesions for developing SBO, with suture repair of small RUQ incisional hernia from inside, with findings of previous intestinal reconstruction/hepaticojejunostomy, done years ago after post-cholecystectomy complications per pt. Also with likely PTFE mesh in situ from subsequent incarcerated umbilical hernia repair, was split in upper aspect for laparotomy. 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 HR had been controlled and in sinus on po meds and she was on Eliquis until all po meds stopped. She is now complete NPO with TPN and IV meds only, via PICC. Wound/fistula management with VAC Had CTA chest with no evidence of PE, very small pleural effusion. Was transferred to ICU with recurrence of afib with RVR for cardizem drip, was given digoxin load and Cardizem drip stopped, with prn IV meds only. Transferred back to telemetry with resumption of cardizem drip at low dose. Also on heparin drip, since pt cannot take PO meds. On Ceftriaxone for possible UTI.Also on Diflucan. - Current Medication List Current Medications: Active Medications Acetaminophen (Ofirmev Injection -) 1,000 mg IVPB Q6H PRN PRN Reason: Pain Level 4-10 Last Admin: 12/21/18 09:21 Dose: 1,000 mg Clonidine HCl (Catapres Tts Patch -) 0.2 mg TD Q7D@1000 [facility] Last Admin: 12/20/18 11:02 Dose: 0.2 mg Diltiazem HCl (Cardizem Injection -) 10 mg IVPUSH Q4H PRN PRN Reason: TACHYCARDIA Last Admin: 12/19/18 23:29 Dose: 10 mg Diphenhydramine HCl (Benadryl Injection -) 25 mg IVPB Q6H PRN PRN Reason: ITCHING Heparin Sodium (Porcine) (Heparin -) 1,000 unit IVPUSH PRN PRN PRN Reason: Heparin Heparin Sodium (Porcine) (Heparin -) 5,000 unit IVPUSH PRN PRN PRN Reason: Heparin Heparin Sodium (Porcine) 25, (000 unit/ Sodium Chloride) 500 mls @ 18 mls/hr IV TITR [facility]; Protocol Last Admin: 12/20/18 18:09 Dose: 1,450 unit/hr, 29 mls/hr Diltiazem HCl 125 mg/ Sodium (Chloride) 125 mls @ 5 mls/hr IVPB TITR [facility]; Protocol Last Admin: 12/20/18 19:14 Dose: 5 mg/hr, 5 mls/hr Fluconazole (Diflucan 200 Mg/D5w Premixed Ivpb -) 100 mls @ 100 mls/hr IVPB DAILY [facility] Last Admin: 12/21/18 09:21 Dose: 100 mls/hr Fat Emulsion Intravenous (Intralipid -) 250 mls @ 20.833 mls/hr IV TuThSa [facility] Potassium Phosphate 15 mm/Calcium Gluconate 1,000 mg/Magnesium Sulfate 2 gm/ Folic Acid 1 mg/ Multivitamins/Minerals 10 ml/ Potassium Chloride 30 meq/ Insulin Human Regular 32 units/ Sterile Water/ Amino Acids/ Dextrose 1,600 mls @ 66.6 mls/hr IVPB DAILY@1600 [facility] Last Admin: 12/20/18 16:35 Dose: 66.6 mls/hr Insulin Aspart (Novolog Vial Sliding Scale -) 1 vial SQ Q6H [facility]; Protocol Last Admin: 12/21/18 06:46 Dose: 6 units Metoprolol Tartrate (Lopressor Injection -) 5 mg IVPUSH Q4H PRN PRN Reason: HYPERTENSION Morphine Sulfate (Morphine Sulfate) 4 mg IVPUSH Q4H PRN PRN Reason: Pain Level 7 - 10 BREAKTHROUGH Last Admin: 12/21/18 08:02 Dose: 4 mg Ondansetron HCl (Zofran Injection) 4 mg IVPUSH Q4H PRN PRN Reason: NAUSEA AND/OR VOMITING - Objective Vital Signs: Vital Signs Temperature 98.3 F 12/21/18 06:00 Pulse Rate 116 H 12/21/18 06:00 Respiratory Rate 18 12/21/18 06:00 Blood Pressure 139/83 12/21/18 06:00 O2 Sat by Pulse Oximetry (%) 96 12/20/18 21:00 Constitutional: Yes: Anxious Eyes: Yes: Conjunctiva Clear HENT: Yes: Atraumatic Neck: Yes: Trachea Midline Cardiovascular: Yes: Tachycardia, S1, S2 Respiratory: Yes: Regular, Poor Air Entry Gastrointestinal: Yes: Distention (post surgical abdomen), Tenderness Genitourinary: No: CVA Tenderness - Left, CVA Tenderness - Right Labs: CBC, BMP 12/20/18 05:30 12/21/18 06:55 INR, PTT INR 1.15 (0.83-1.09) H 12/19/18 05:30 Assessment/Plan 72 year old woman with hx of CKD, Nephrolithiasis, DM who presented with Abd pain secondary to SBO s/p surgical intervention with [facility]. Renal function stable Noted Hypernatremia from today's blood work. etiology not clear. ? error. No evidence of free water depletion. Will repeat in AM. Will continue the parenteral nutrition. Trend electrolytes daily Donna Tracy MD
[2018-12-21] MEDS ORDERED: PT OWN MED DRAWER 7, Y5N ONE (12:19)
--- NOTE | 2018-12-21 14:39 | PN ---
Progress Note, Physician History of Present Illness: POD31 s/p extensive lysis of intestinal adhesions for developing SBO, with suture repair of small RUQ incisional hernia from inside, with findings of previous intestinal reconstruction/hepaticojejunostomy, done years ago after post-cholecystectomy complications per pt. Also with likely PTFE mesh in situ from subsequent incarcerated umbilical hernia repair, was split in upper aspect for laparotomy. 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 HR had been controlled and in sinus on po meds and she was on Eliquis until all po meds stopped. She had previously tolerated soft diabetic diet, though with marginal po intake. She is now complete NPO with TPN and IV meds only, via PICC. Wound/ fistula management with VAC (white foam at base over necrotic fascia, black over that). Orangey/light brown fluid in wound and VAC canister, now translucent , low output. Last 2 VAC changes with no enteric content in wound - site appears to be sealing over. Renal managing TPN with insulin in bag, lipids every other day. Na, K+ a bit elevated this morning - unclear if real, repeat CMP just drawn. Had CTA chest with no evidence of PE, very small pleural effusion. Was transferred to ICU with recurrence of afib with RVR for cardizem drip, was given digoxin load and Cardizem drip stopped, with prn IV meds only. Then transferred back to telemetry with resumption of cardizem drip at low dose - cardiology plans to wean back off over this weekend if possible. Also on heparin drip, since pt cannot take PO meds; PTT therapeutic. She c/o burning with urination last weekend. UA showed +LE, wbc, some blood, culture grew only yeast-like organism. Got 5d Ceftriaxone and is now on Diflucan day 3. Seen and examined in bed, having "one of my better days." Has had few bowel movements in last week - good volume of very soft, mushy, orange stool on MARCELLUS in vault yesterday. She had suppository last night, and reports pushing a lot and had 2-3 small movements to get some out. Still with upper abd pain at times , managed with tylenol and morphine prn - currently minimal to no pain. She reports the pain is worse when she exerts herself, like with pushing for stool. VAC intact with about 550ml in canister. Up in chair and ambulating periodically , doing well with walker and assistance for all her lines/tubes. Uses commode at bedside with assistance. - Current Medication List Current Medications: Active Medications Acetaminophen (Ofirmev Injection -) 1,000 mg IVPB Q6H PRN PRN Reason: Pain Level 4-10 Last Admin: 12/21/18 09:21 Dose: 1,000 mg Clonidine HCl (Catapres Tts Patch -) 0.2 mg TD Q7D@1000 [facility] Last Admin: 12/20/18 11:02 Dose: 0.2 mg Diltiazem HCl (Cardizem Injection -) 10 mg IVPUSH Q4H PRN PRN Reason: TACHYCARDIA Last Admin: 12/19/18 23:29 Dose: 10 mg Diphenhydramine HCl (Benadryl Injection -) 25 mg IVPB Q6H PRN PRN Reason: ITCHING Heparin Sodium (Porcine) (Heparin -) 1,000 unit IVPUSH PRN PRN PRN Reason: Heparin Heparin Sodium (Porcine) (Heparin -) 5,000 unit IVPUSH PRN PRN PRN Reason: Heparin Heparin Sodium (Porcine) 25, (000 unit/ Sodium Chloride) 500 mls @ 18 mls/hr IV TITR [facility]; Protocol Last Admin: 12/20/18 18:09 Dose: 1,450 unit/hr, 29 mls/hr Diltiazem HCl 125 mg/ Sodium (Chloride) 125 mls @ 5 mls/hr IVPB TITR [facility]; Protocol Last Admin: 12/20/18 19:14 Dose: 5 mg/hr, 5 mls/hr Fluconazole (Diflucan 200 Mg/D5w Premixed Ivpb -) 100 mls @ 100 mls/hr IVPB DAILY [facility] Last Admin: 12/21/18 09:21 Dose: 100 mls/hr Fat Emulsion Intravenous (Intralipid -) 250 mls @ 20.833 mls/hr IV TuThSa [facility] Potassium Phosphate 15 mm/Calcium Gluconate 1,000 mg/Magnesium Sulfate 2 gm/ Folic Acid 1 mg/ Multivitamins/Minerals 10 ml/ Potassium Chloride 30 meq/ Insulin Human Regular 32 units/ Sterile Water/ Amino Acids/ Dextrose 1,600 mls @ 66.6 mls/hr IVPB DAILY@1600 [facility] Last Admin: 12/20/18 16:35 Dose: 66.6 mls/hr Insulin Aspart (Novolog Vial Sliding Scale -) 1 vial SQ Q6H [facility]; Protocol Last Admin: 12/21/18 12:22 Dose: 8 units Metoprolol Tartrate (Lopressor Injection -) 5 mg IVPUSH Q4H PRN PRN Reason: HYPERTENSION Morphine Sulfate (Morphine Sulfate) 4 mg IVPUSH Q4H PRN PRN Reason: Pain Level 7 - 10 BREAKTHROUGH Last Admin: 12/21/18 08:02 Dose: 4 mg Ondansetron HCl (Zofran Injection) 4 mg IVPUSH Q4H PRN PRN Reason: NAUSEA AND/OR VOMITING - Objective Vital Signs: Vital Signs Temperature 97.4 F L 12/21/18 10:00 Pulse Rate 130 H 12/21/18 10:00 Respiratory Rate 20 12/21/18 10:00 Blood Pressure 124/72 12/21/18 10:00 O2 Sat by Pulse Oximetry (%) 100 12/21/18 09:00 Vital Signs Period Temp Pulse Resp BP Sys/Pascual Pulse Ox Last 24 Hr 97.4 F-98.3 F 89-130 18-20 124-141/64-83 96-100 Constitutional: Yes: No Distress, Calm, Obese Eyes: Yes: Conjunctiva Clear, EOM Intact HENT: Yes: Atraumatic, Normocephalic Gastrointestinal: Yes: Soft, Abdomen, Obese. No: Tenderness (no sig tenderness today, minimal incisional/over VAC) Extremities: No: Cool, Cyanosis Integumentary: Yes: Incision (midline w/VAC). No: Jaundice, Rash Wound/Incision: Yes: Dressing Dry and Intact (VAC intact at -125mm cont pressure ), Draining (translucent brown/syed in top layer of canister). No: Dressing Removed Neurological: Yes: Alert, Oriented Labs: CBC, BMP 12/20/18 05:30 CMP Sodium 149 mmol/L (136-145) H 12/21/18 06:55 Potassium 5.3 mmol/L (3.5-5.1) H 12/21/18 06:55 Chloride 116 mmol/L (98-107) H 12/21/18 06:55 Carbon Dioxide 22 mmol/L (21-32) 12/21/18 06:55 Anion Gap 11 MMOL/L (8-16) 12/21/18 06:55 BUN 46 mg/dL (7-18) H 12/21/18 06:55 Creatinine 1.3 mg/dL (0.55-1.3) 12/21/18 06:55 Creat Clearance w eGFR 39.93 (>60) 12/21/18 06:55 POC Glucometer 283 UNITS (80-120) 12/21/18 11:33 Random Glucose 260 mg/dL (74-106) H 12/21/18 06:55 Calcium 8.6 mg/dL (8.5-10.1) 12/21/18 06:55 Phosphorus 3.6 mg/dL (2.5-4.9) 12/21/18 06:55 Magnesium 2.2 mg/dL (1.8-2.4) 12/21/18 06:55 Total Bilirubin 0.3 mg/dL (0.2-1) 12/21/18 06:55 AST 29 U/L (15-37) 12/21/18 06:55 ALT 19 U/L (13-61) 12/21/18 06:55 Alkaline Phosphatase 145 U/L (45-117) H 12/21/18 06:55 Total Protein 7.1 g/dl (6.4-8.2) 12/21/18 06:55 Albumin 2.0 g/dl (3.4-5.0) L 12/21/18 06:55 Triglycerides 212 mg/dL (0-150) H 12/21/18 06:55 Na, Cl, K+, BUN up a bit CMP just repeated, pending Problem List - Problems (1) Intestinal adhesions with partial obstruction Assessment/Plan: POD31 s/p extensive lysis of adhesions and RUQ incisional hernia repair s/p hepaticojejunostomy in past with intestinal reconstruction - with dilated/ stagnant loop of anastomotic area had small enterotomy with small yellow fluid leakage repaired in proximal SB ( hepatic limb?) up under RUQ scar, near incisional hernia, minimal contamination POD14 s/p complex I&D of midline postop wound infection low output enterocutaneous fistula present under midportion of midline wound - appears to be sealing over with granulation tissue VAC changed yesterday - white foam in base, black foam strip over, no enteric content in wound, good seal obtained COMPLETE NPO with TPN, IV meds only via PICC line from IR pain meds prn - tylenol first line, morphine as needed breakthrough and for dressing changes monitor labs, lytes, glucose TPN per renal new CMP pending seen and discussed with Debby Olson, primary team Code(s): K56.51 - INTESTINAL ADHESIONS [BANDS], WITH PARTIAL OBSTRUCTION (2) Infection following a procedure, superficial incisional surgical site, initial encounter Assessment/Plan: wound culture grew mostly sensitive E. coli, E. faecalis, yeast-like organism Code(s): T81.41XA - INFCT FOL A PROC, SUPERFIC INCISIONAL SURGICAL SITE, INIT (3) Enterocutaneous fistula Assessment/Plan: in context of PTFE mesh in situ in field/wound and underlying abnormal intestinal anatomy will need mesh removal, fistula takedown, reconstruction of abdominal wall discussed with Dr. Calzada at [place] he is ok with transfer to [facility] for complex wound care ([facility] VAC with white foam/ black foam), TPN and telemetry needs he would then see her as outpatient in his office from [facility] at 6 wks postop to decide when to have her transferred to [place] for intervention Code(s): K63.2 - FISTULA OF INTESTINE (4) Persistent postprocedural fistula, initial encounter Assessment/Plan: enterocutaneous fistula - may be closing continue TPN/complete NPO continue VAC - white foam in wound base, black over changed yesterday - no enteric content in wound currently VAC changes 3x weekly - next on Sunday, with plan to transfer then to [facility] for ongoing care, until it is time for evaluation by Dr. Rafael Calzada from [place] (6 wks postop) will touch base with [facility] reps so they can hopefully continue to follow her there and assist with VAC care/changes while there might be able to try po challenge during [facility] stay to see if VAC/fistula output recurs/increases Code(s): T81.83XA - PERSISTENT POSTPROCEDURAL FISTULA, INITIAL ENCOUNTER (5) Incisional hernia, without obstruction or gangrene Code(s): K43.2 - INCISIONAL HERNIA WITHOUT OBSTRUCTION OR GANGRENE (6) Atrial fibrillation with RVR Assessment/Plan: converted back to ALL IV meds, completely NPO cardiology following cardizem drip was resumed on transfer back to telemetry - cardio plans to wean back off over weekend if possible maintain lytes in normal range heparin drip while NPO/Eliquis on hold PTT therapeutic Code(s): I48.91 - UNSPECIFIED ATRIAL FIBRILLATION (7) Hypertension Assessment/Plan: cardio managing, IV meds with clonidine patch Code(s): I10 - ESSENTIAL (PRIMARY) HYPERTENSION Qualifiers: Hypertension type: essential hypertension Qualified Code(s): I10 - Essential (primary) hypertension (8) Diabetes mellitus type 2 in obese Assessment/Plan: endo had seen earlier (also with incidental adrenal nodule - will need outpatient f/u testing) glucose management along with TPN - insulin added to TPN, renal managing Code(s): E11.69 - TYPE 2 DIABETES MELLITUS WITH OTHER SPECIFIED COMPLICATION; E66.9 - OBESITY, UNSPECIFIED (9) S/P ureteral stent placement Assessment/Plan: left ureteral stent in place since September; management per uro - pt may need laser lithotripsy with stent removal or exchange, ?as outpatient/while off anticoagulation mild increase in left hydronephrosis on last CT urology saw again - deferred stent change for now symptomatic UTI - yeast on culture, Ceftriaxone (had 5 days) stopped; on Diflucan (D3) ID following Code(s): Z96.0 - PRESENCE OF UROGENITAL IMPLANTS (10) Gout Assessment/Plan: home med on hold Code(s): M10.9 - GOUT, UNSPECIFIED Qualifiers: Gout site: toe Gout etiology: unspecified cause Chronicity: unspecified Laterality: unspecified laterality Qualified Code(s): M10.9 - Gout, unspecified (11) CKD (chronic kidney disease) stage 3, GFR 30-59 ml/min Assessment/Plan: nephrology following and managing TPN daily labs BUN/Cr stable Code(s): N18.3 - CHRONIC KIDNEY DISEASE, STAGE 3 (MODERATE)
[2018-12-21 15:29] LABS: ALK PHOS 147 U/L (45-117); ANION GAP 7 MMOL/L (8-16); BILIRUBIN,TOTAL 0.2 mg/dL (0.2-1); BLOOD UREA NITROGEN 46 mg/dL (7-18); CALCIUM 8.6 mg/dL (8.5-10.1); CHLORIDE 107 mmol/L (98-107); CO2 20 mmol/L (21-32); CREATININE 1.3 mg/dL (0.55-1.3); GLUCOSE,RANDOM 260 mg/dL (74-106); POTASSIUM 4.6 mmol/L (3.5-5.1); SGOT/AST 25 U/L (15-37); SGPT/ALT 20 U/L (13-61); SODIUM 134 mmol/L (136-145); TOT PROT 7.4 g/dl (6.4-8.2)
--- NOTE | 2018-12-21 16:07 | PN ---
Progress Note, Physician Chief Complaint: Abdominal pain SBP vs Cecal Volvulus History of Present Illness: Previous notes and events reviewed awake and alert NAD patient denies chest pain or SOB wound vac connected and draining - Current Medication List Current Medications: Active Medications Acetaminophen (Ofirmev Injection -) 1,000 mg IVPB Q6H PRN PRN Reason: Pain Level 4-10 Last Admin: 12/21/18 09:21 Dose: 1,000 mg Clonidine HCl (Catapres Tts Patch -) 0.2 mg TD Q7D@1000 [facility] Last Admin: 12/20/18 11:02 Dose: 0.2 mg Diltiazem HCl (Cardizem Injection -) 10 mg IVPUSH Q4H PRN PRN Reason: TACHYCARDIA Last Admin: 12/19/18 23:29 Dose: 10 mg Diphenhydramine HCl (Benadryl Injection -) 25 mg IVPB Q6H PRN PRN Reason: ITCHING Heparin Sodium (Porcine) (Heparin -) 1,000 unit IVPUSH PRN PRN PRN Reason: Heparin Heparin Sodium (Porcine) (Heparin -) 5,000 unit IVPUSH PRN PRN PRN Reason: Heparin Heparin Sodium (Porcine) 25, (000 unit/ Sodium Chloride) 500 mls @ 18 mls/hr IV TITR [facility]; Protocol Last Admin: 12/20/18 18:09 Dose: 1,450 unit/hr, 29 mls/hr Diltiazem HCl 125 mg/ Sodium (Chloride) 125 mls @ 5 mls/hr IVPB TITR [facility]; Protocol Last Admin: 12/20/18 19:14 Dose: 5 mg/hr, 5 mls/hr Fluconazole (Diflucan 200 Mg/D5w Premixed Ivpb -) 100 mls @ 100 mls/hr IVPB DAILY [facility] Last Admin: 12/21/18 09:21 Dose: 100 mls/hr Fat Emulsion Intravenous (Intralipid -) 250 mls @ 20.833 mls/hr IV TuThSa [facility] Potassium Phosphate 15 mm/Calcium Gluconate 1,000 mg/Magnesium Sulfate 2 gm/ Folic Acid 1 mg/ Multivitamins/Minerals 10 ml/ Potassium Chloride 30 meq/ Insulin Human Regular 32 units/ Sterile Water/ Amino Acids/ Dextrose 1,600 mls @ 66.6 mls/hr IVPB DAILY@1600 [facility] Last Admin: 12/20/18 16:35 Dose: 66.6 mls/hr Insulin Aspart (Novolog Vial Sliding Scale -) 1 vial SQ Q6H [facility]; Protocol Last Admin: 12/21/18 12:22 Dose: 8 units Metoprolol Tartrate (Lopressor Injection -) 5 mg IVPUSH Q4H PRN PRN Reason: HYPERTENSION Morphine Sulfate (Morphine Sulfate) 4 mg IVPUSH Q4H PRN PRN Reason: Pain Level 7 - 10 BREAKTHROUGH Last Admin: 12/21/18 08:02 Dose: 4 mg Ondansetron HCl (Zofran Injection) 4 mg IVPUSH Q4H PRN PRN Reason: NAUSEA AND/OR VOMITING - Objective Vital Signs: Vital Signs Temperature 97.4 F L 12/21/18 10:00 Pulse Rate 130 H 12/21/18 10:00 Respiratory Rate 20 12/21/18 10:00 Blood Pressure 124/72 12/21/18 10:00 O2 Sat by Pulse Oximetry (%) 100 12/21/18 09:00 Constitutional: Yes: No Distress, Calm Eyes: Yes: Conjunctiva Clear HENT: Yes: Atraumatic Cardiovascular: Yes: Pulse Irregular Respiratory: Yes: Regular, Diminished Gastrointestinal: Yes: Normal Bowel Sounds, Soft Musculoskeletal: Yes: Muscle Weakness Extremities: Yes: WNL Edema: No Neurological: Yes: Alert, Oriented Psychiatric: Yes: Alert, Oriented Labs: CBC, BMP 12/20/18 05:30 12/21/18 14:25 INR, PTT INR 1.15 (0.83-1.09) H 12/19/18 05:30 Microbiology 12/16/18 10:06 Urine - Urine Clean Catch Urine Culture - Final Yeast Like Organism 12/07/18 20:15 Incision Gram Stain - Final 12/07/18 20:15 Incision Wound Culture - Final Enterococcus Faecalis Escherichia Coli Yeast Like Organism 11/17/18 15:15 Blood - Peripheral Venous Blood Culture - Final NO GROWTH AFTER 5 DAYS INCUBATION 11/17/18 15:45 Blood - Peripheral Venous Blood Culture - Final NO GROWTH AFTER 5 DAYS INCUBATION 11/16/18 22:45 Urine - Urine Clean Catch Urine Culture - Final NO GROWTH OBTAINED Problem List - Problems (1) Abdominal pain Assessment/Plan: - -Abdomen and Pelvic CT scan shows abnormal cecal position but no evidence of volvulus, abnormal ileal loops possibly representing enteritis -Meckel scan shows no scintigraphic evidence of Meckel diverticulum containing ectopic gastric mucosa -s/p laparatomy with extensive lysis of adhesion and suture repair of RUQ incisional hernia -pain management -NPO status -surgery on board -GI on board -zofran prn for nausea -continue with Simethicone -R PICC line in place -wound vac in place Code(s): R10.9 - UNSPECIFIED ABDOMINAL PAIN Qualifiers: Abdominal location: unspecified location Qualified Code(s): R10.9 - Unspecified abdominal pain (2) CKD (chronic kidney disease) stage 3, GFR 30-59 ml/min Assessment/Plan: -improved -BUN/Cr 46/1.3 -monitor renal function daily -renal on board Code(s): N18.3 - CHRONIC KIDNEY DISEASE, STAGE 3 (MODERATE) (3) Diabetes mellitus type 2 in obese Assessment/Plan: -BG ACHS -ISS -HgA1c 8.9% -diabetic diet Code(s): E11.69 - TYPE 2 DIABETES MELLITUS WITH OTHER SPECIFIED COMPLICATION; E66.9 - OBESITY, UNSPECIFIED (4) Hypertension Assessment/Plan: -continue clonidine and metoprolol IVP -cardio on board Code(s): I10 - ESSENTIAL (PRIMARY) HYPERTENSION Qualifiers: Hypertension type: essential hypertension Qualified Code(s): I10 - Essential (primary) hypertension (5) Hydronephrosis, left Assessment/Plan: -L ureteral stent, previously followed by urologist [place] -urology on board Code(s): N13.30 - UNSPECIFIED HYDRONEPHROSIS (6) Atrial fibrillation with RVR Assessment/Plan: -tele monitoring -clonidine patch -continue metoprolol and cardizem IVP for elev HR -cardiology on board Code(s): I48.91 - UNSPECIFIED ATRIAL FIBRILLATION (7) Hypomagnesemia Assessment/Plan: -resolved -monitor lytes daily and replete as needed Code(s): E83.42 - HYPOMAGNESEMIA Assessment/Plan see problem list dvt ppx patient will be discharged to LT[facility] on 12/23 after wound vac change
[2018-12-21] MEDS: CALCIUM GLUCONATE IVPB SCH (17:22)
[2018-12-21] MEDS: [UNRECOGNIZED DRUG - OTHER] IVPB SCH (17:22)
[2018-12-21] MEDS: MAGNESIUM SULFATE IVPB SCH (17:22)
[2018-12-21] MEDS: POTASSIUM PHOSPHATE IVPB SCH (17:22)
[2018-12-21] MEDS: HEPARIN - 25,000 UNIT in SODIUM CHLORIDE 495 ML IV SCH (17:23)
[2018-12-21] MEDS: DILTIAZEM INJECTION 125 MG in SODIUM CHLORIDE 100 ML IVPB SCH (17:32)
[2018-12-21] MEDS ORDERED: FAT EMULSIONS 250 ML IV SCH (22:00)
[2018-12-22] MEDS: INSULIN SLIDING SCALE (NOVOLOG) 1 VIAL SQ SCH ×4 (06:40→22:29)
[2018-12-22 08:51] LABS: BASO % 1.3 % (0-2.0); EOS % 1.4 % (0-4.5); HEMATOCRIT 27.4 % (32.4-45.2); HEMOGLOBIN 9.1 GM/dL (10.7-15.3); LYMPH % 22.4 % (8-40); MCH 27.7 pg (25.7-33.7); MCHC 33.1 g/dl (32.0-36.0); MEAN CELL VOLUME 83.6 fl (80-96); MEAN PLT VOLUME 9.6 fl (7.5-11.1); MONO % 9.9 % (3.8-10.2); PLATELET COUNT 292 K/MM3 (134-434); RBC 3.28 M/mm3 (3.60-5.2); WHITE BLOOD COUNT 6.8 K/mm3 (4.0-10.0)
[2018-12-22 09:09] LABS: ALBUMIN 2.1 g/dl (3.4-5.0); ALK PHOS 138 U/L (45-117); ANION GAP 8 MMOL/L (8-16); BILIRUBIN,TOTAL 0.3 mg/dL (0.2-1); BLOOD UREA NITROGEN 44 mg/dL (7-18); CALCIUM 8.9 mg/dL (8.5-10.1); CHLORIDE 107 mmol/L (98-107); CO2 23 mmol/L (21-32); CREATININE 1.3 mg/dL (0.55-1.3); MAGNESIUM 2.1 mg/dL (1.8-2.4); PHOSPHOROUS 3.1 mg/dL (2.5-4.9); POTASSIUM 5.3 mmol/L (3.5-5.1); SGOT/AST 24 U/L (15-37); SGPT/ALT 20 U/L (13-61); SODIUM 137 mmol/L (136-145); TOT PROT 7.3 g/dl (6.4-8.2)
[2018-12-22 09:54] LABS: GLUCOSE,RANDOM 303 mg/dL (74-106)
[2018-12-22] MEDS: FLUCONAZOLE 200 MG/D5W 100 ML IVPB SCH (09:56)
--- NOTE | 2018-12-22 11:01 | PN ---
Progress Note, Physician Chief Complaint: seen and examined No acute distress TELE: AF average rate 80-100bpm, early AM spikes to 130s self limited - Current Medication List Current Medications: Active Medications Acetaminophen (Ofirmev Injection -) 1,000 mg IVPB Q6H PRN PRN Reason: Pain Level 4-10 Last Admin: 12/21/18 16:49 Dose: 1,000 mg Clonidine HCl (Catapres Tts Patch -) 0.2 mg TD Q7D@1000 [facility] Last Admin: 12/20/18 11:02 Dose: 0.2 mg Diltiazem HCl (Cardizem Injection -) 10 mg IVPUSH Q4H PRN PRN Reason: TACHYCARDIA Last Admin: 12/19/18 23:29 Dose: 10 mg Diphenhydramine HCl (Benadryl Injection -) 25 mg IVPB Q6H PRN PRN Reason: ITCHING Heparin Sodium (Porcine) (Heparin -) 1,000 unit IVPUSH PRN PRN PRN Reason: Heparin Heparin Sodium (Porcine) (Heparin -) 5,000 unit IVPUSH PRN PRN PRN Reason: Heparin Heparin Sodium (Porcine) 25, (000 unit/ Sodium Chloride) 500 mls @ 18 mls/hr IV TITR [facility]; Protocol Last Titration: 12/22/18 07:41 Dose: 1,450 unit/hr, 29 mls/hr Diltiazem HCl 125 mg/ Sodium (Chloride) 125 mls @ 5 mls/hr IVPB TITR [facility]; Protocol Last Admin: 12/21/18 17:32 Dose: 5 mg/hr, 5 mls/hr Fluconazole (Diflucan 200 Mg/D5w Premixed Ivpb -) 100 mls @ 100 mls/hr IVPB DAILY [facility] Last Admin: 12/22/18 09:56 Dose: 100 mls/hr Fat Emulsion Intravenous (Intralipid -) 250 mls @ 20.833 mls/hr IV TuThSa [facility] Last Admin: 12/21/18 22:33 Dose: 20.833 mls/hr Potassium Phosphate 15 mm/Calcium Gluconate 1,000 mg/Magnesium Sulfate 2 gm/ Folic Acid 1 mg/ Multivitamins/Minerals 10 ml/ Potassium Chloride 30 meq/ Insulin Human Regular 32 units/ Sterile Water/ Amino Acids/ Dextrose 1,600 mls @ 66.6 mls/hr IVPB DAILY@1600 [facility] Last Admin: 12/21/18 17:22 Dose: 66.6 mls/hr Insulin Aspart (Novolog Vial Sliding Scale -) 1 vial SQ Q6H [facility]; Protocol Last Admin: 12/22/18 06:40 Dose: 8 units Metoprolol Tartrate (Lopressor Injection -) 5 mg IVPUSH Q4H PRN PRN Reason: HYPERTENSION Morphine Sulfate (Morphine Sulfate) 4 mg IVPUSH Q4H PRN PRN Reason: Pain Level 7 - 10 BREAKTHROUGH Last Admin: 12/21/18 20:50 Dose: 4 mg Ondansetron HCl (Zofran Injection) 4 mg IVPUSH Q4H PRN PRN Reason: NAUSEA AND/OR VOMITING - Objective Vital Signs: Vital Signs Temperature 98.6 F 12/22/18 05:00 Pulse Rate 116 H 12/22/18 05:00 Respiratory Rate 20 12/22/18 05:00 Blood Pressure 143/66 12/22/18 05:00 O2 Sat by Pulse Oximetry (%) 98 12/21/18 20:42 Constitutional: Yes: No Distress Cardiovascular: Yes: Pulse Irregular Respiratory: Yes: CTA Bilaterally Gastrointestinal: Yes: Soft (no rebound) Edema: No Neurological: Yes: Alert, Oriented ...Motor Strength: WNL Labs: CBC, BMP 12/22/18 06:30 12/22/18 06:30 INR, PTT INR 1.15 (0.83-1.09) H 12/19/18 05:30 Laboratory Tests 12/22/18 12/22/18 12/22/18 06:30 06:30 06:30 WBC 6.8 Hgb 9.1 L Plt Count 292 PTT (Actin FS) 61.6 H Sodium 137 Potassium 5.3 H Creatinine 1.3 - ....Imaging EKG: Image Reviewed Assessment/Plan IMP: Active issues from CV standpoint 1. Atrial fibrillation 2. Hypertension REC: 1. Tolerating heparin gtts well 2. Rates are adequately controlled on current med. D/W Dr. Rodney: drips can be administered at ITACH 3. BP well controlled. 4. Cont tele 5. Surgery following.
[2018-12-22] MEDS: morphine SULFATE 4 MG/ML VIAL IVPUSH PRN (11:30)
[2018-12-22 12:44] LABS: ANISOCYTOSIS 1+; MACROCYTOSIS 0; PLATELET ESTIMATE NORMAL
--- NOTE | 2018-12-22 12:44 | PN ---
Progress Note, Physician History of Present Illness: PULMONARY ALERT,NO DISTRESS,-CP,-SOB,+ MILD ABD DISCOMFORT.PT REMAINS ON CARDIZEM DRIP - Current Medication List Current Medications: Active Medications Acetaminophen (Ofirmev Injection -) 1,000 mg IVPB Q6H PRN PRN Reason: Pain Level 4-10 Last Admin: 12/21/18 16:49 Dose: 1,000 mg Clonidine HCl (Catapres Tts Patch -) 0.2 mg TD Q7D@1000 [facility] Last Admin: 12/20/18 11:02 Dose: 0.2 mg Diltiazem HCl (Cardizem Injection -) 10 mg IVPUSH Q4H PRN PRN Reason: TACHYCARDIA Last Admin: 12/19/18 23:29 Dose: 10 mg Diphenhydramine HCl (Benadryl Injection -) 25 mg IVPB Q6H PRN PRN Reason: ITCHING Heparin Sodium (Porcine) (Heparin -) 1,000 unit IVPUSH PRN PRN PRN Reason: Heparin Heparin Sodium (Porcine) (Heparin -) 5,000 unit IVPUSH PRN PRN PRN Reason: Heparin Heparin Sodium (Porcine) 25, (000 unit/ Sodium Chloride) 500 mls @ 18 mls/hr IV TITR [facility]; Protocol Last Titration: 12/22/18 07:41 Dose: 1,450 unit/hr, 29 mls/hr Diltiazem HCl 125 mg/ Sodium (Chloride) 125 mls @ 5 mls/hr IVPB TITR [facility]; Protocol Last Admin: 12/21/18 17:32 Dose: 5 mg/hr, 5 mls/hr Fluconazole (Diflucan 200 Mg/D5w Premixed Ivpb -) 100 mls @ 100 mls/hr IVPB DAILY [facility] Last Admin: 12/22/18 09:56 Dose: 100 mls/hr Fat Emulsion Intravenous (Intralipid -) 250 mls @ 20.833 mls/hr IV TuThSa [facility] Last Admin: 12/21/18 22:33 Dose: 20.833 mls/hr Potassium Phosphate 15 mm/Calcium Gluconate 1,000 mg/Magnesium Sulfate 2 gm/ Folic Acid 1 mg/ Multivitamins/Minerals 10 ml/ Potassium Chloride 30 meq/ Insulin Human Regular 32 units/ Sterile Water/ Amino Acids/ Dextrose 1,600 mls @ 66.6 mls/hr IVPB DAILY@1600 [facility] Last Admin: 12/21/18 17:22 Dose: 66.6 mls/hr Insulin Aspart (Novolog Vial Sliding Scale -) 1 vial SQ Q6H [facility]; Protocol Last Admin: 12/22/18 06:40 Dose: 8 units Metoprolol Tartrate (Lopressor Injection -) 5 mg IVPUSH Q4H PRN PRN Reason: HYPERTENSION Morphine Sulfate (Morphine Sulfate) 4 mg IVPUSH Q4H PRN PRN Reason: Pain Level 7 - 10 BREAKTHROUGH Last Admin: 12/21/18 20:50 Dose: 4 mg Ondansetron HCl (Zofran Injection) 4 mg IVPUSH Q4H PRN PRN Reason: NAUSEA AND/OR VOMITING - Objective Vital Signs: Vital Signs Temperature 98.1 F 12/22/18 09:00 Pulse Rate 117 H 12/22/18 09:00 Respiratory Rate 18 12/22/18 09:00 Blood Pressure 152/78 12/22/18 09:00 O2 Sat by Pulse Oximetry (%) 98 12/22/18 09:00 Constitutional: Yes: Well Nourished, Calm Eyes: Yes: WNL HENT: Yes: WNL Neck: Yes: WNL Cardiovascular: Yes: Pulse Irregular, S1, S2 Respiratory: Yes: Diminished Gastrointestinal: Yes: Normal Bowel Sounds, Soft Extremities: Yes: WNL Edema: No Labs: CBC, BMP 12/22/18 06:30 12/22/18 06:30 INR, PTT INR 1.15 (0.83-1.09) H 12/19/18 05:30 Problem List - Problems (1) Anemia Code(s): D64.9 - ANEMIA, UNSPECIFIED (2) Atrial fibrillation with RVR Code(s): I48.91 - UNSPECIFIED ATRIAL FIBRILLATION (3) CKD (chronic kidney disease) stage 3, GFR 30-59 ml/min Code(s): N18.3 - CHRONIC KIDNEY DISEASE, STAGE 3 (MODERATE) (4) Diabetes mellitus type 2 in obese Code(s): E11.69 - TYPE 2 DIABETES MELLITUS WITH OTHER SPECIFIED COMPLICATION; E66.9 - OBESITY, UNSPECIFIED (5) Enterocutaneous fistula Code(s): K63.2 - FISTULA OF INTESTINE (6) History of cholecystectomy Code(s): Z90.49 - ACQUIRED ABSENCE OF OTHER SPECIFIED PARTS OF DIGESTIVE TRACT (7) History of common bile duct surgery Code(s): Z98.890 - OTHER SPECIFIED POSTPROCEDURAL STATES (8) Intestinal adhesions with partial obstruction Code(s): K56.51 - INTESTINAL ADHESIONS [BANDS], WITH PARTIAL OBSTRUCTION (9) New onset a-fib Code(s): I48.91 - UNSPECIFIED ATRIAL FIBRILLATION (10) S/P ureteral stent placement Code(s): Z96.0 - PRESENCE OF UROGENITAL IMPLANTS (11) Small bowel obstruction Code(s): K56.609 - UNSP INTESTNL OBST, UNSP TO PARTIAL VERSUS COMPLETE OBST Assessment/Plan ASSESSMENT AND PLAN: Small Bowel Resection/Incisional Hernia s/p ex-lap/PAN/hernia repair Atrial Fibrillation with RVR LV Diastolic Dysfunction Pulmonary HTN CKD HTN DM - pain control - incentive spirometry - anticoagulation - antibiotics - wound care - O2 to keep SpO2 >90% - TPN per renal - Cardizem moy [facility]
--- NOTE | 2018-12-22 13:09 | PN ---
Progress Note, Physician Chief Complaint: The patient seen in her room. Comfortable. Remains totally NPO. TPN well tolerated. History of Present Illness: The patient had extensive lysis of intestinal adhesions for developing SBO, with suture repair of small RUQ incisional hernia from inside, with findings of previous intestinal reconstruction/hepaticojejunostomy, done years ago after post-cholecystectomy complications per pt. Also with likely PTFE mesh in situ from subsequent incarcerated umbilical hernia repair, was split in upper aspect for laparotomy. 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 HR had been controlled and in sinus on po meds and she was on Eliquis until all po meds stopped. She is now complete NPO with TPN and IV meds only, via PICC. Wound/fistula management with VAC Had CTA chest with no evidence of PE, very small pleural effusion. Was transferred to ICU with recurrence of afib with RVR for cardizem drip, was given digoxin load and Cardizem drip stopped, with prn IV meds only. Transferred back to telemetry with resumption of cardizem drip at low dose. Also on heparin drip, since pt cannot take PO meds. - Current Medication List Current Medications: Active Medications Acetaminophen (Ofirmev Injection -) 1,000 mg IVPB Q6H PRN PRN Reason: Pain Level 4-10 Last Admin: 12/21/18 16:49 Dose: 1,000 mg Clonidine HCl (Catapres Tts Patch -) 0.2 mg TD Q7D@1000 [facility] Last Admin: 12/20/18 11:02 Dose: 0.2 mg Diltiazem HCl (Cardizem Injection -) 10 mg IVPUSH Q4H PRN PRN Reason: TACHYCARDIA Last Admin: 12/19/18 23:29 Dose: 10 mg Diphenhydramine HCl (Benadryl Injection -) 25 mg IVPB Q6H PRN PRN Reason: ITCHING Heparin Sodium (Porcine) (Heparin -) 1,000 unit IVPUSH PRN PRN PRN Reason: Heparin Heparin Sodium (Porcine) (Heparin -) 5,000 unit IVPUSH PRN PRN PRN Reason: Heparin Heparin Sodium (Porcine) 25, (000 unit/ Sodium Chloride) 500 mls @ 18 mls/hr IV TITR [facility]; Protocol Last Titration: 12/22/18 07:41 Dose: 1,450 unit/hr, 29 mls/hr Diltiazem HCl 125 mg/ Sodium (Chloride) 125 mls @ 5 mls/hr IVPB TITR [facility]; Protocol Last Admin: 12/21/18 17:32 Dose: 5 mg/hr, 5 mls/hr Fluconazole (Diflucan 200 Mg/D5w Premixed Ivpb -) 100 mls @ 100 mls/hr IVPB DAILY [facility] Last Admin: 12/22/18 09:56 Dose: 100 mls/hr Fat Emulsion Intravenous (Intralipid -) 250 mls @ 20.833 mls/hr IV TuThSa [facility] Last Admin: 12/21/18 22:33 Dose: 20.833 mls/hr Potassium Phosphate 15 mm/Calcium Gluconate 1,000 mg/Magnesium Sulfate 2 gm/ Folic Acid 1 mg/ Multivitamins/Minerals 10 ml/ Potassium Chloride 30 meq/ Insulin Human Regular 32 units/ Sterile Water/ Amino Acids/ Dextrose 1,600 mls @ 66.6 mls/hr IVPB DAILY@1600 [facility] Last Admin: 12/21/18 17:22 Dose: 66.6 mls/hr Insulin Aspart (Novolog Vial Sliding Scale -) 1 vial SQ Q6H [facility]; Protocol Last Admin: 12/22/18 06:40 Dose: 8 units Metoprolol Tartrate (Lopressor Injection -) 5 mg IVPUSH Q4H PRN PRN Reason: HYPERTENSION Morphine Sulfate (Morphine Sulfate) 4 mg IVPUSH Q4H PRN PRN Reason: Pain Level 7 - 10 BREAKTHROUGH Last Admin: 12/21/18 20:50 Dose: 4 mg Ondansetron HCl (Zofran Injection) 4 mg IVPUSH Q4H PRN PRN Reason: NAUSEA AND/OR VOMITING - Objective Vital Signs: Vital Signs Temperature 98.1 F 12/22/18 09:00 Pulse Rate 117 H 12/22/18 09:00 Respiratory Rate 18 12/22/18 09:00 Blood Pressure 152/78 12/22/18 09:00 O2 Sat by Pulse Oximetry (%) 98 12/22/18 09:00 Constitutional: Yes: Anxious Eyes: Yes: Conjunctiva Clear HENT: Yes: Normocephalic Neck: Yes: Trachea Midline Cardiovascular: Yes: Regular Rate and Rhythm, Tachycardia, S1, S2 Respiratory: Yes: CTA Bilaterally, Diminished Gastrointestinal: Yes: Hypoactive Bowel Sounds Genitourinary: No: CVA Tenderness - Left, CVA Tenderness - Right Neurological: Yes: Alert, Oriented Labs: CBC, BMP 12/22/18 06:30 12/22/18 06:30 INR, PTT INR 1.15 (0.83-1.09) H 12/19/18 05:30 Assessment/Plan 72 year old woman with hx of CKD, Nephrolithiasis, DM who presented with Abd pain secondary to SBO s/p surgical intervention with [facility]. Renal function stable Hyperkalemia noted. TPN modified. Will continue the parenteral nutrition. Trend electrolytes daily Donna Tracy MD
--- NOTE | 2018-12-22 14:10 | PN ---
Progress Note, Physician History of Present Illness: POD32 s/p extensive lysis of intestinal adhesions for developing SBO, with suture repair of small RUQ incisional hernia from inside, with findings of previous intestinal reconstruction/hepaticojejunostomy, done years ago after post-cholecystectomy complications per pt. Also with likely PTFE mesh in situ from subsequent incarcerated umbilical hernia repair, was split in upper aspect for laparotomy. 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 HR had been controlled and in sinus on po meds and she was on Eliquis until all po meds stopped. She had previously tolerated soft diabetic diet, though with marginal po intake. She is now complete NPO with TPN and IV meds only, via PICC. Wound/ fistula management with VAC (white foam at base over necrotic fascia, black over that). Carla/light brown fluid in VAC canister, now translucent, low output. Last 2 VAC changes with no enteric content in wound - site appears to be sealing over. Renal managing TPN with insulin in bag, lipids every other day. Had CTA chest with no evidence of PE, very small pleural effusion. Was transferred to ICU with recurrence of afib with RVR for cardizem drip, was given digoxin load and Cardizem drip stopped, with prn IV meds only. Then transferred back to telemetry with resumption of cardizem drip at low dose, stable. Also on heparin drip, since pt cannot take PO meds; PTT therapeutic. She c/o burning with urination last weekend. UA showed +LE, wbc, some blood, culture grew only yeast-like organism. Got 5d Ceftriaxone and is now on Diflucan day 4. Reports having had 2 more BMs, soft, semiformed, with resolution of the very bad pain she had with passage previously. Seen and examined in bed. Still with abd pain at times, managed with tylenol and morphine prn - had significant pain this morning, which responded well to tylenol; she currently feels much better. Thinks she still waits sometimes too long to take pain med. VAC intact with about 600ml in canister. Up in chair and ambulating periodically , doing well with walker and assistance for all her lines/tubes. Uses commode at bedside with assistance. - Current Medication List Current Medications: Active Medications Acetaminophen (Ofirmev Injection -) 1,000 mg IVPB Q6H PRN PRN Reason: Pain Level 4-10 Last Admin: 12/21/18 16:49 Dose: 1,000 mg Clonidine HCl (Catapres Tts Patch -) 0.2 mg TD Q7D@1000 [facility] Last Admin: 12/20/18 11:02 Dose: 0.2 mg Diltiazem HCl (Cardizem Injection -) 10 mg IVPUSH Q4H PRN PRN Reason: TACHYCARDIA Last Admin: 12/19/18 23:29 Dose: 10 mg Diphenhydramine HCl (Benadryl Injection -) 25 mg IVPB Q6H PRN PRN Reason: ITCHING Heparin Sodium (Porcine) (Heparin -) 1,000 unit IVPUSH PRN PRN PRN Reason: Heparin Heparin Sodium (Porcine) (Heparin -) 5,000 unit IVPUSH PRN PRN PRN Reason: Heparin Heparin Sodium (Porcine) 25, (000 unit/ Sodium Chloride) 500 mls @ 18 mls/hr IV TITR [facility]; Protocol Last Titration: 12/22/18 07:41 Dose: 1,450 unit/hr, 29 mls/hr Diltiazem HCl 125 mg/ Sodium (Chloride) 125 mls @ 5 mls/hr IVPB TITR [facility]; Protocol Last Admin: 12/21/18 17:32 Dose: 5 mg/hr, 5 mls/hr Fluconazole (Diflucan 200 Mg/D5w Premixed Ivpb -) 100 mls @ 100 mls/hr IVPB DAILY [facility] Last Admin: 12/22/18 09:56 Dose: 100 mls/hr Fat Emulsion Intravenous (Intralipid -) 250 mls @ 20.833 mls/hr IV TuThSa [facility] Last Admin: 12/21/18 22:33 Dose: 20.833 mls/hr Potassium Phosphate 15 mm/Calcium Gluconate 1,000 mg/Magnesium Sulfate 2 gm/ Folic Acid 1 mg/ Multivitamins/Minerals 10 ml/ Potassium Chloride 30 meq/ Insulin Human Regular 32 units/ Sterile Water/ Amino Acids/ Dextrose 1,600 mls @ 66.6 mls/hr IVPB DAILY@1600 [facility] Insulin Aspart (Novolog Vial Sliding Scale -) 1 vial SQ Q6H [facility]; Protocol Last Admin: 12/22/18 06:40 Dose: 8 units Metoprolol Tartrate (Lopressor Injection -) 5 mg IVPUSH Q4H PRN PRN Reason: HYPERTENSION Morphine Sulfate (Morphine Sulfate) 4 mg IVPUSH Q4H PRN PRN Reason: Pain Level 7 - 10 BREAK[facility]ROUGH Last Admin: 12/21/18 20:50 Dose: 4 mg Ondansetron HCl (Zofran Injection) 4 mg IVPUSH Q4H PRN PRN Reason: NAUSEA AND/OR VOMITING - Objective Vital Signs: Vital Signs Temperature 98.1 F 12/22/18 09:00 Pulse Rate 117 H 12/22/18 09:00 Respiratory Rate 18 12/22/18 09:00 Blood Pressure 152/78 12/22/18 09:00 O2 Sat by Pulse Oximetry (%) 98 12/22/18 09:00 Vital Signs Period Temp Pulse Resp BP Sys/Pascual Pulse Ox Last 24 Hr 97.8 F-98.6 F 107-120 18-20 121-152/66-92 98-98 Constitutional: Yes: No Distress, Calm, Obese Eyes: Yes: Conjunctiva Clear, EOM Intact HENT: Yes: Atraumatic, Normocephalic Gastrointestinal: Yes: Soft, Abdomen, Obese, Tenderness (minimal upper and incisional). No: Distention Extremities: No: Cool, Cyanosis Integumentary: Yes: Incision (midline w/VAC). No: Jaundice, Rash Wound/Incision: Yes: Dressing Dry and Intact (VAC intact w/good seal at -125mm cont pressure), Draining (about 50ml/day in canister). No: Dressing Removed Neurological: Yes: Alert, Oriented Labs: CBC, BMP 12/22/18 06:30 12/22/18 06:30 PTT 62 Phos 3.1 Mg 2.1 Alb 2.1 Problem List - Problems (1) Intestinal adhesions with partial obstruction Assessment/Plan: POD32 s/p extensive lysis of adhesions and RUQ incisional hernia repair s/p hepaticojejunostomy in past with intestinal reconstruction - with dilated/ stagnant loop of anastomotic area had small enterotomy with small yellow fluid leakage repaired in proximal SB ( hepatic limb?) up under RUQ scar, near incisional hernia, minimal contamination POD15 s/p complex I&D of midline postop wound infection low output enterocutaneous fistula present under midportion of midline wound - appears to be sealing over with granulation tissue VAC changed Sunday - white foam in base, black foam strip over, no enteric content in wound, good seal obtained COMPLETE NPO with TPN, IV meds only via PICC line from IR pain meds prn - tylenol first line, morphine as needed breakthrough and for dressing changes monitor labs, lytes, glucose TPN per renal + bowel function improving discussed with Debby Olson, primary team Code(s): K56.51 - INTESTINAL ADHESIONS [BANDS], WITH PARTIAL OBSTRUCTION (2) Infection following a procedure, superficial incisional surgical site, initial encounter Assessment/Plan: wound culture grew mostly sensitive E. coli, E. faecalis, yeast-like organism Code(s): T81.41XA - INFCT FOL A PROC, SUPERFIC INCISIONAL SURGICAL SITE, INIT (3) Enterocutaneous fistula Assessment/Plan: in context of PTFE mesh in situ in field/wound and underlying abnormal intestinal anatomy will need mesh removal, fistula takedown, reconstruction of abdominal wall discussed with Dr. Calzada at [place] he is ok with transfer to [facility] for complex wound care ([employer] VAC with white foam/ black foam), TPN and telemetry needs he would then see her as outpatient in his office from [facility] at 6 wks postop to decide when to have her transferred to [place] for intervention Code(s): K63.2 - FISTULA OF INTESTINE (4) Persistent postprocedural fistula, initial encounter Assessment/Plan: enterocutaneous fistula - may be closing continue TPN/complete NPO continue VAC - white foam in wound base, black over changed Sunday - no enteric content in wound currently VAC changes 3x weekly - next tomorrow, with plan to transfer then to [facility] for ongoing care, until it is time for evaluation by Dr. Rafael Calzada from [place] (6 wks postop) will touch base with [facility] reps so they can hopefully continue to follow her there and assist with VAC care/changes while there might be able to try po [facility] to see if VAC/fistula output recurs/increases Code(s): T81.83XA - PERSISTENT POSTPROCEDURAL FISTULA, INITIAL ENCOUNTER (5) Incisional hernia, without obstruction or gangrene Code(s): K43.2 - INCISIONAL HERNIA WITHOUT OBSTRUCTION OR GANGRENE (6) Atrial fibrillation with RVR Assessment/Plan: converted back to ALL IV meds, completely NPO cardiology following on low-dose cardizem drip, transferred back to telemetry may be able to wean off when can go back on PO meds at [facility] or [place] maintain lytes in normal range heparin drip while NPO/Eliquis on hold PTT therapeutic Code(s): I48.91 - UNSPECIFIED ATRIAL FIBRILLATION (7) Hypertension Assessment/Plan: cardio managing, IV meds with clonidine patch Code(s): I10 - ESSENTIAL (PRIMARY) HYPERTENSION Qualifiers: Hypertension type: essential hypertension Qualified Code(s): I10 - Essential (primary) hypertension (8) Diabetes mellitus type 2 in obese Assessment/Plan: endo had seen earlier (also with incidental adrenal nodule - will need outpatient f/u testing) glucose management along with TPN - insulin added to TPN, renal managing Code(s): E11.69 - TYPE 2 DIABETES MELLITUS WITH OTHER SPECIFIED COMPLICATION; E66.9 - OBESITY, UNSPECIFIED (9) S/P ureteral stent placement Assessment/Plan: left ureteral stent in place since September; management per uro - pt may need laser lithotripsy with stent removal or exchange, ?as outpatient/while off anticoagulation mild increase in left hydronephrosis on last CT urology saw again - deferred stent change for now symptomatic UTI - yeast on culture, Ceftriaxone (had 5 days) stopped; on Diflucan (D4) ID following Code(s): Z96.0 - PRESENCE OF UROGENITAL IMPLANTS (10) Gout Assessment/Plan: home med on hold Code(s): M10.9 - GOUT, UNSPECIFIED Qualifiers: Gout site: toe Gout etiology: unspecified cause Chronicity: unspecified Laterality: unspecified laterality Qualified Code(s): M10.9 - Gout, unspecified (11) CKD (chronic kidney disease) stage 3, GFR 30-59 ml/min Assessment/Plan: nephrology following and managing TPN daily labs BUN/Cr stable will check prealbumin again in am Code(s): N18.3 - CHRONIC KIDNEY DISEASE, STAGE 3 (MODERATE)
--- NOTE | 2018-12-22 15:46 | PN ---
Progress Note, Physician Chief Complaint: Abdominal pain SBP vs Cecal Volvulus History of Present Illness: Previous notes and events reviewed awake and alert NAD patient denies chest pain or SOB wound vac connected and draining complain of abdominal pain but relieved with pain management - Current Medication List Current Medications: Active Medications Acetaminophen (Ofirmev Injection -) 1,000 mg IVPB Q6H PRN PRN Reason: Pain Level 4-10 Last Admin: 12/21/18 16:49 Dose: 1,000 mg Clonidine HCl (Catapres Tts Patch -) 0.2 mg TD Q7D@1000 [facility] Last Admin: 12/20/18 11:02 Dose: 0.2 mg Diltiazem HCl (Cardizem Injection -) 10 mg IVPUSH Q4H PRN PRN Reason: TACHYCARDIA Last Admin: 12/19/18 23:29 Dose: 10 mg Diphenhydramine HCl (Benadryl Injection -) 25 mg IVPB Q6H PRN PRN Reason: ITCHING Heparin Sodium (Porcine) (Heparin -) 1,000 unit IVPUSH PRN PRN PRN Reason: Heparin Heparin Sodium (Porcine) (Heparin -) 5,000 unit IVPUSH PRN PRN PRN Reason: Heparin Heparin Sodium (Porcine) 25, (000 unit/ Sodium Chloride) 500 mls @ 18 mls/hr IV TITR [facility]; Protocol Last Titration: 12/22/18 07:41 Dose: 1,450 unit/hr, 29 mls/hr Diltiazem HCl 125 mg/ Sodium (Chloride) 125 mls @ 5 mls/hr IVPB TITR [facility]; Protocol Last Admin: 12/21/18 17:32 Dose: 5 mg/hr, 5 mls/hr Fluconazole (Diflucan 200 Mg/D5w Premixed Ivpb -) 100 mls @ 100 mls/hr IVPB DAILY [facility] Last Admin: 12/22/18 09:56 Dose: 100 mls/hr Fat Emulsion Intravenous (Intralipid -) 250 mls @ 20.833 mls/hr IV TuThSa [facility] Last Admin: 12/21/18 22:33 Dose: 20.833 mls/hr Potassium Phosphate 15 mm/Sodium Chloride 15 meq/Calcium Gluconate 1,000 mg/ Magnesium Sulfate 2 gm/Insulin Human Regular 35 units / Folic Acid 1 mg/ Multivitamins/Minerals 10 ml/Sterile Water/ Amino Acids/Dextrose 1,600 mls @ 66.6 mls/hr IVPB DAILY@1600 [facility] Insulin Aspart (Novolog Vial Sliding Scale -) 1 vial SQ Q6H [facility]; Protocol Last Admin: 12/22/18 06:40 Dose: 8 units Metoprolol Tartrate (Lopressor Injection -) 5 mg IVPUSH Q4H PRN PRN Reason: HYPERTENSION Morphine Sulfate (Morphine Sulfate) 4 mg IVPUSH Q4H PRN PRN Reason: Pain Level 7 - 10 BREAKTHROUGH Last Admin: 12/21/18 20:50 Dose: 4 mg Ondansetron HCl (Zofran Injection) 4 mg IVPUSH Q4H PRN PRN Reason: NAUSEA AND/OR VOMITING - Objective Vital Signs: Vital Signs Temperature 98.1 F 12/22/18 09:00 Pulse Rate 117 H 12/22/18 09:00 Respiratory Rate 18 12/22/18 09:00 Blood Pressure 152/78 12/22/18 09:00 O2 Sat by Pulse Oximetry (%) 98 12/22/18 09:00 Constitutional: Yes: No Distress, Calm Eyes: Yes: Conjunctiva Clear HENT: Yes: Atraumatic Cardiovascular: Yes: Regular Rate and Rhythm Respiratory: Yes: Regular, CTA Bilaterally Gastrointestinal: Yes: Normal Bowel Sounds, Soft Musculoskeletal: Yes: Muscle Weakness Extremities: Yes: WNL Edema: No Neurological: Yes: Alert, Oriented Psychiatric: Yes: Alert, Oriented Labs: CBC, BMP 12/22/18 06:30 12/22/18 06:30 INR, PTT INR 1.15 (0.83-1.09) H 12/19/18 05:30 Problem List - Problems (1) CKD (chronic kidney disease) stage 3, GFR 30-59 ml/min Assessment/Plan: -improved -BUN/Cr 44/1.3 -monitor renal function daily -renal on board Code(s): N18.3 - CHRONIC KIDNEY DISEASE, STAGE 3 (MODERATE) (2) Diabetes mellitus type 2 in obese Assessment/Plan: -BGM ACHS -ISS -HgA1c 8.9% -diabetic diet Code(s): E11.69 - TYPE 2 DIABETES MELLITUS WITH OTHER SPECIFIED COMPLICATION; E66.9 - OBESITY, UNSPECIFIED (3) Hypertension Assessment/Plan: -continue clonidine and metoprolol IVP -cardio on board Code(s): I10 - ESSENTIAL (PRIMARY) HYPERTENSION Qualifiers: Hypertension type: essential hypertension Qualified Code(s): I10 - Essential (primary) hypertension (4) Hydronephrosis, left Assessment/Plan: -L ureteral stent, previously followed by urologist in [place] -urology on board Code(s): N13.30 - UNSPECIFIED HYDRONEPHROSIS (5) Atrial fibrillation with RVR Assessment/Plan: -tele monitoring -clonidine patch -Heparin drip -continue metoprolol and cardizem IVP for elev HR -cardiology on board Code(s): I48.91 - UNSPECIFIED ATRIAL FIBRILLATION (6) Hypomagnesemia Assessment/Plan: -resolved -monitor lytes daily and replete as needed Code(s): E83.42 - HYPOMAGNESEMIA Assessment/Plan see problem list dvt ppx patient will be discharged to LT[facility] on 12/23 after wound vac change
[2018-12-22] MEDS ORDERED: SODIUM CHLORIDE IVPB SCH (16:00)
[2018-12-22] MEDS ORDERED: [UNRECOGNIZED DRUG - OTHER] IVPB SCH (16:00)
[2018-12-22] MEDS ORDERED: POTASSIUM PHOSPHATE IVPB SCH (16:00)
[2018-12-22] MEDS ORDERED: INSULIN (NOVOLOG) ASPART 100 UNITS/ML 10ML VIAL ONE (16:45)
[2018-12-22] MEDS: DILTIAZEM INJECTION 125 MG in SODIUM CHLORIDE 100 ML IVPB SCH ×2 (18:52→23:55)
[2018-12-22] MEDS: HEPARIN - 25,000 UNIT in SODIUM CHLORIDE 495 ML IV SCH (18:53)
[2018-12-22] MEDS: ACETAMINOPHEN 1000 MG/100 ML VIAL (NON FORMULARY) IVPB PRN (18:53)
[2018-12-22 19:01] LABS: INR 1.19 (0.83-1.09); PROTHROMBIN TIME (PATIENT) 14.1 SEC (9.7-13.0)
[2018-12-23] MEDS: ACETAMINOPHEN 1000 MG/100 ML VIAL (NON FORMULARY) IVPB PRN ×2 (01:00→09:56)
[2018-12-23] MEDS: INSULIN SLIDING SCALE (NOVOLOG) 1 VIAL SQ SCH ×2 (06:46→12:33)
[2018-12-23 08:14] LABS: HEMATOCRIT 29.5 % (32.4-45.2); HEMOGLOBIN 9.9 GM/dL (10.7-15.3); MCH 27.8 pg (25.7-33.7); MCHC 33.4 g/dl (32.0-36.0); MEAN PLT VOLUME 8.5 fl (7.5-11.1); PLATELET COUNT 296 K/MM3 (134-434); RBC 3.55 M/mm3 (3.60-5.2); RDW 21.1 % (11.6-15.6); WHITE BLOOD COUNT 6.4 K/mm3 (4.0-10.0)
[2018-12-23 08:29] VITALS: TEMP 98.8
--- NOTE | 2018-12-23 09:32 | PN ---
Progress Note, Physician Chief Complaint: seen and examined No distress TELE: Average rate 100bpm with rare spikes to 130s, self limited. - Current Medication List Current Medications: Active Medications Acetaminophen (Ofirmev Injection -) 1,000 mg IVPB Q6H PRN PRN Reason: Pain Level 4-10 Last Admin: 12/23/18 01:00 Dose: 1,000 mg Clonidine HCl (Catapres Tts Patch -) 0.2 mg TD Q7D@1000 [facility] Last Admin: 12/20/18 11:02 Dose: 0.2 mg Diltiazem HCl (Cardizem Injection -) 10 mg IVPUSH Q4H PRN PRN Reason: TACHYCARDIA Last Admin: 12/19/18 23:29 Dose: 10 mg Diphenhydramine HCl (Benadryl Injection -) 25 mg IVPB Q6H PRN PRN Reason: ITCHING Heparin Sodium (Porcine) (Heparin -) 1,000 unit IVPUSH PRN PRN PRN Reason: Heparin Heparin Sodium (Porcine) (Heparin -) 5,000 unit IVPUSH PRN PRN PRN Reason: Heparin Heparin Sodium (Porcine) 25, (000 unit/ Sodium Chloride) 500 mls @ 18 mls/hr IV TITR [facility]; Protocol Last Admin: 12/22/18 18:53 Dose: 1,450 unit/hr, 29 mls/hr Diltiazem HCl 125 mg/ Sodium (Chloride) 125 mls @ 5 mls/hr IVPB TITR [facility]; Protocol Last Admin: 12/22/18 23:55 Dose: 5 mg/hr, 5 mls/hr Fluconazole (Diflucan 200 Mg/D5w Premixed Ivpb -) 100 mls @ 100 mls/hr IVPB DAILY [facility] Last Admin: 12/22/18 09:56 Dose: 100 mls/hr Fat Emulsion Intravenous (Intralipid -) 250 mls @ 20.833 mls/hr IV TuThSa [facility] Last Admin: 12/21/18 22:33 Dose: 20.833 mls/hr Insulin Aspart (Novolog Vial Sliding Scale -) 1 vial SQ Q6H [facility]; Protocol Last Admin: 12/23/18 06:46 Dose: 6 units Metoprolol Tartrate (Lopressor Injection -) 5 mg IVPUSH Q4H PRN PRN Reason: HYPERTENSION Ondansetron HCl (Zofran Injection) 4 mg IVPUSH Q4H PRN PRN Reason: NAUSEA AND/OR VOMITING - Objective Vital Signs: Vital Signs Temperature 98.8 F 12/23/18 08:28 Pulse Rate 128 H 12/23/18 08:28 Respiratory Rate 20 12/23/18 08:28 Blood Pressure 156/90 12/23/18 08:28 O2 Sat by Pulse Oximetry (%) 97 12/23/18 08:26 Constitutional: Yes: No Distress Cardiovascular: Yes: Pulse Irregular Respiratory: Yes: CTA Bilaterally Gastrointestinal: Yes: Soft Edema: No Neurological: Yes: Alert, Oriented ...Motor Strength: WNL Labs: CBC, BMP 12/23/18 08:00 INR, PTT INR 1.19 (0.83-1.09) H 12/22/18 18:00 Laboratory Tests 12/23/18 12/23/18 12/23/18 08:00 08:00 08:00 WBC 6.4 Hgb 9.9 L Plt Count 296 PTT (Actin FS) 46.3 H Sodium Pending Potassium Pending BUN Pending Creatinine Pending - ....Imaging EKG: Image Reviewed Assessment/Plan IMP: Active issues from CV standpoint 1. Atrial fibrillation 2. Hypertension REC: 1. Tolerating heparin gtts well 2. Rates are adequately controlled on current med. D/W Dr. Rodney: drips can be administered at [facility] 3. BP well controlled. 4. Cont tele 5. Surgery following. 6. When tolerating PO: Switch Cardizem gtts to Cardizem CD 360mg daily and Eliquis 5mg BID for her anticoagulation
[2018-12-23] MEDS: FLUCONAZOLE 200 MG/D5W 100 ML IVPB SCH (09:33)
[2018-12-23 10:01] LABS: ALBUMIN 2.4 g/dl (3.4-5.0); ALK PHOS 149 U/L (45-117); ANION GAP 10 MMOL/L (8-16); BILIRUBIN,TOTAL 0.4 mg/dL (0.2-1); BLOOD UREA NITROGEN 44 mg/dL (7-18); CALCIUM 8.9 mg/dL (8.5-10.1); CHLORIDE 108 mmol/L (98-107); CO2 20 mmol/L (21-32); CREATININE 1.3 mg/dL (0.55-1.3); GLUCOSE,RANDOM 269 mg/dL (74-106); PHOSPHOROUS 3.4 mg/dL (2.5-4.9); POTASSIUM 4.4 mmol/L (3.5-5.1); PREALBUMIN 22.4 mg/dl (20-40); SGOT/AST 21 U/L (15-37); SGPT/ALT 20 U/L (13-61); SODIUM 139 mmol/L (136-145); TOT PROT 7.8 g/dl (6.4-8.2)
--- NOTE | 2018-12-23 10:30 | PN ---
Progress Note, Physician History of Present Illness: PULMONARY ALERT,COMFORTABLE,-RESP DISTRESS,-CP,MILD ABD DISCOMFORT - Current Medication List Current Medications: Active Medications Acetaminophen (Ofirmev Injection -) 1,000 mg IVPB Q6H PRN PRN Reason: Pain Level 4-10 Last Admin: 12/23/18 09:56 Dose: 1,000 mg Clonidine HCl (Catapres Tts Patch -) 0.2 mg TD Q7D@1000 [facility] Last Admin: 12/20/18 11:02 Dose: 0.2 mg Diltiazem HCl (Cardizem Injection -) 10 mg IVPUSH Q4H PRN PRN Reason: TACHYCARDIA Last Admin: 12/19/18 23:29 Dose: 10 mg Diphenhydramine HCl (Benadryl Injection -) 25 mg IVPB Q6H PRN PRN Reason: ITCHING Heparin Sodium (Porcine) (Heparin -) 1,000 unit IVPUSH PRN PRN PRN Reason: Heparin Heparin Sodium (Porcine) (Heparin -) 5,000 unit IVPUSH PRN PRN PRN Reason: Heparin Heparin Sodium (Porcine) 25, (000 unit/ Sodium Chloride) 500 mls @ 18 mls/hr IV TITR [facility]; Protocol Last Admin: 12/22/18 18:53 Dose: 1,450 unit/hr, 29 mls/hr Diltiazem HCl 125 mg/ Sodium (Chloride) 125 mls @ 5 mls/hr IVPB TITR [facility]; Protocol Last Admin: 12/22/18 23:55 Dose: 5 mg/hr, 5 mls/hr Fluconazole (Diflucan 200 Mg/D5w Premixed Ivpb -) 100 mls @ 100 mls/hr IVPB DAILY [facility] Last Admin: 12/23/18 09:33 Dose: 100 mls/hr Fat Emulsion Intravenous (Intralipid -) 250 mls @ 20.833 mls/hr IV TuThSa [facility] Last Admin: 12/21/18 22:33 Dose: 20.833 mls/hr Insulin Aspart (Novolog Vial Sliding Scale -) 1 vial SQ Q6H [facility]; Protocol Last Admin: 12/23/18 06:46 Dose: 6 units Metoprolol Tartrate (Lopressor Injection -) 5 mg IVPUSH Q4H PRN PRN Reason: HYPERTENSION Ondansetron HCl (Zofran Injection) 4 mg IVPUSH Q4H PRN PRN Reason: NAUSEA AND/OR VOMITING - Objective Vital Signs: Vital Signs Temperature 98.8 F 12/23/18 08:28 Pulse Rate 128 H 12/23/18 08:28 Respiratory Rate 20 12/23/18 08:28 Blood Pressure 156/90 12/23/18 08:28 O2 Sat by Pulse Oximetry (%) 97 12/23/18 08:26 Constitutional: Yes: Well Nourished, Calm Eyes: Yes: WNL HENT: Yes: WNL Neck: Yes: WNL Cardiovascular: Yes: Pulse Irregular, S1, S2 Respiratory: Yes: CTA Bilaterally Gastrointestinal: Yes: Normal Bowel Sounds, Soft Extremities: Yes: WNL Edema: No Labs: CBC, BMP 12/23/18 08:00 12/23/18 08:00 INR, PTT INR 1.19 (0.83-1.09) H 12/22/18 18:00 Problem List - Problems (1) Anemia Code(s): D64.9 - ANEMIA, UNSPECIFIED (2) Atrial fibrillation with RVR Code(s): I48.91 - UNSPECIFIED ATRIAL FIBRILLATION (3) CKD (chronic kidney disease) stage 3, GFR 30-59 ml/min Code(s): N18.3 - CHRONIC KIDNEY DISEASE, STAGE 3 (MODERATE) (4) Diabetes mellitus type 2 in obese Code(s): E11.69 - TYPE 2 DIABETES MELLITUS WITH OTHER SPECIFIED COMPLICATION; E66.9 - OBESITY, UNSPECIFIED (5) Enterocutaneous fistula Code(s): K63.2 - FISTULA OF INTESTINE (6) History of cholecystectomy Code(s): Z90.49 - ACQUIRED ABSENCE OF OTHER SPECIFIED PARTS OF DIGESTIVE TRACT (7) History of common bile duct surgery Code(s): Z98.890 - OTHER SPECIFIED POSTPROCEDURAL STATES (8) Intestinal adhesions with partial obstruction Code(s): K56.51 - INTESTINAL ADHESIONS [BANDS], WITH PARTIAL OBSTRUCTION (9) New onset a-fib Code(s): I48.91 - UNSPECIFIED ATRIAL FIBRILLATION (10) S/P ureteral stent placement Code(s): Z96.0 - PRESENCE OF UROGENITAL IMPLANTS (11) Small bowel obstruction Code(s): K56.609 - UNSP INTESTNL OBST, UNSP TO PARTIAL VERSUS COMPLETE OBST Assessment/Plan ASSESSMENT AND PLAN: Small Bowel Resection/Incisional Hernia s/p ex-lap/PAN/hernia repair Atrial Fibrillation with RVR LV Diastolic Dysfunction Pulmonary HTN CKD HTN DM - pain control - incentive spirometry - anticoagulation - antibiotics - wound care - O2 to keep SpO2 >90% - TPN per renal - Cardizem DR VILLAFANA
[2018-12-23] MEDS ORDERED: morphine SULFATE 4 MG/ML VIAL ONE (10:43)
--- NOTE | 2018-12-23 12:01 | PN ---
Progress Note, Physician History of Present Illness: POD33 s/p extensive lysis of intestinal adhesions for developing SBO, with suture repair of small RUQ incisional hernia from inside, with findings of previous intestinal reconstruction/hepaticojejunostomy, done years ago after post-cholecystectomy complications per pt. Also with likely PTFE mesh in situ from subsequent incarcerated umbilical hernia repair, was split in upper aspect for laparotomy. 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 HR had been controlled and in sinus on po meds and she was on Eliquis until all po meds stopped. She had previously tolerated soft diabetic diet, though with marginal po intake. She is now complete NPO with TPN and IV meds only, via PICC. Wound/ fistula management with VAC (white foam at base over necrotic fascia, black over that). Syed/light brown fluid in VAC canister, now translucent, low output. Last 2 VAC changes with no enteric content in wound - site appears to be sealing over. Renal managing TPN with insulin in bag, lipids every other day. Had CTA chest with no evidence of PE, very small pleural effusion. Was transferred to ICU with recurrence of afib with RVR for cardizem drip, was given digoxin load and Cardizem drip stopped, with prn IV meds only. Then transferred back to telemetry with resumption of cardizem drip at low dose, stable. Also on heparin drip, since pt cannot take PO meds; PTT was therapeutic. She c/o burning with urination a week ago. UA showed +LE, wbc, some blood, culture grew only yeast-like organism. Got 5d Ceftriaxone and is now on Diflucan day 5. Reports now moving her bowels "much more and easier" - no more pain, having soft stool output. Seen and examined in bed. Still with abd pain at times, managed with tylenol and morphine prn - about to get tylenol. VAC intact with just over 600ml in canister. Up in chair and ambulating periodically, doing well with walker and assistance for all her lines/tubes. Uses commode at bedside with assistance. - Current Medication List Current Medications: Active Medications Acetaminophen (Ofirmev Injection -) 1,000 mg IVPB Q6H PRN PRN Reason: Pain Level 4-10 Last Admin: 04/29/19 09:56 Dose: 1,000 mg Clonidine HCl (Catapres Tts Patch -) 0.2 mg TD Q7D@1000 [facility] Last Admin: 12/20/18 11:02 Dose: 0.2 mg Diltiazem HCl (Cardizem Injection -) 10 mg IVPUSH Q4H PRN PRN Reason: TACHYCARDIA Last Admin: 12/19/18 23:29 Dose: 10 mg Diphenhydramine HCl (Benadryl Injection -) 25 mg IVPB Q6H PRN PRN Reason: ITCHING Heparin Sodium (Porcine) (Heparin -) 1,000 unit IVPUSH PRN PRN PRN Reason: Heparin Heparin Sodium (Porcine) (Heparin -) 5,000 unit IVPUSH PRN PRN PRN Reason: Heparin Heparin Sodium (Porcine) 25, (000 unit/ Sodium Chloride) 500 mls @ 18 mls/hr IV TITR [facility]; Protocol Last Admin: 12/22/18 18:53 Dose: 1,450 unit/hr, 29 mls/hr Diltiazem HCl 125 mg/ Sodium (Chloride) 125 mls @ 5 mls/hr IVPB TITR [facility]; Protocol Last Admin: 12/22/18 23:55 Dose: 5 mg/hr, 5 mls/hr Fluconazole (Diflucan 200 Mg/D5w Premixed Ivpb -) 100 mls @ 100 mls/hr IVPB DAILY [facility] Last Admin: 12/23/18 09:33 Dose: 100 mls/hr Fat Emulsion Intravenous (Intralipid -) 250 mls @ 20.833 mls/hr IV TuThSa [facility] Last Admin: 12/21/18 22:33 Dose: 20.833 mls/hr Insulin Aspart (Novolog Vial Sliding Scale -) 1 vial SQ Q6H [facility]; Protocol Last Admin: 12/23/18 06:46 Dose: 6 units Metoprolol Tartrate (Lopressor Injection -) 5 mg IVPUSH Q4H PRN PRN Reason: HYPERTENSION Ondansetron HCl (Zofran Injection) 4 mg IVPUSH Q4H PRN PRN Reason: NAUSEA AND/OR VOMITING - Objective Vital Signs: Vital Signs Temperature 98.8 F 12/23/18 08:28 Pulse Rate 128 H 12/23/18 08:28 Respiratory Rate 20 12/23/18 08:28 Blood Pressure 156/90 12/23/18 08:28 O2 Sat by Pulse Oximetry (%) 97 12/23/18 08:26 Vital Signs Period Temp Pulse Resp BP Sys/Pascual Pulse Ox Last 24 Hr 98.5 F-99.0 F 103-128 20-20 117-158/63-98 97-97 Constitutional: Yes: No Distress, Calm, Obese Eyes: Yes: Conjunctiva Clear, EOM Intact HENT: Yes: Atraumatic, Normocephalic Gastrointestinal: Yes: Soft, Abdomen, Obese, Tenderness (mild/minimal upper, incisional). No: Distention Extremities: No: Cool, Cyanosis Integumentary: Yes: Incision (midline w/VAC). No: Jaundice, Rash Wound/Incision: Yes: Dressing Dry and Intact (VAC intact at -125mm cont pressure ), Dressing Removed (and VAC changed - white foam strip in base, black foam strip over that, more black foam bridged over drape for trac-pad application), Draining (syed/translucent brown in vac canister), Unapproximated (wound pink, granulating, with mesh showing at both sides of base, no enteric content in wound, small parts of fascia visible in upper wound, most of lower fascia all necrosed (over mesh); fistula site sealed over with granulation tissue; wound measures 12.5 x 4 x 1.5 cm) Neurological: Yes: Alert, Oriented Labs: CBC, BMP 12/23/18 08:00 12/23/18 08:00 INR, PTT INR 1.19 (0.83-1.09) H 12/22/18 18:00 PTT 46 CMP Sodium 139 mmol/L (136-145) 12/23/18 08:00 Potassium 4.4 mmol/L (3.5-5.1) 12/23/18 08:00 Chloride 108 mmol/L (98-107) H 12/23/18 08:00 Carbon Dioxide 20 mmol/L (21-32) L 12/23/18 08:00 Anion Gap 10 MMOL/L (8-16) 12/23/18 08:00 BUN 44 mg/dL (7-18) H 12/23/18 08:00 Creatinine 1.3 mg/dL (0.55-1.3) 12/23/18 08:00 Creat Clearance w eGFR 39.93 (>60) 12/23/18 08:00 POC Glucometer 261 UNITS (80-120) 12/23/18 11:35 Random Glucose 269 mg/dL (74-106) H 12/23/18 08:00 Hemoglobin A1c % 8.9 % (4.2-6.3) H 11/17/18 06:40 Lactic Acid 1.3 mmol/L (0.4-2.0) 11/19/18 22:35 Calcium 8.9 mg/dL (8.5-10.1) 12/23/18 08:00 Phosphorus 3.4 mg/dL (2.5-4.9) 12/23/18 08:00 Magnesium 2.0 mg/dL (1.8-2.4) 12/23/18 08:00 Iron 9 ug/dL (27-139) L 12/07/18 12:20 TIBC 153 ug/dL (250-450) L 12/07/18 12:20 Iron Saturation 6 % (15-55) L 12/07/18 12:20 Ferritin 115.9 ng/ml (8-388) 12/07/18 07:20 Total Bilirubin 0.4 mg/dL (0.2-1) 12/23/18 08:00 AST 21 U/L (15-37) 12/23/18 08:00 ALT 20 U/L (13-61) 12/23/18 08:00 Alkaline Phosphatase 149 U/L (45-117) H 12/23/18 08:00 LD Total 152 U/L (84-246) 11/19/18 20:00 Creatine Kinase 29 U/L (26-192) 12/14/18 05:30 Troponin I 0.20 ng/ml (0.00-0.05) H 12/14/18 05:30 C-Reactive Protein 5.7 MG/DL (0.00-0.3) H 11/29/18 05:30 Total Protein 7.8 g/dl (6.4-8.2) 12/23/18 08:00 Albumin 2.4 g/dl (3.4-5.0) L 12/23/18 08:00 Prealbumin 22.4 mg/dl (20-40) 12/23/18 08:00 Triglycerides 212 mg/dL (0-150) H 12/21/18 06:55 Total Amylase 50 U/L (25-115) 11/19/18 20:00 Lipase 154 U/L (73-393) 11/19/18 20:00 Vitamin B12 312 pg/ml (193-986) 12/07/18 07:20 TSH 1.10 uIU/ml (0.358-3.74) 12/07/18 07:20 Free T4 1.41 ng/dl (0.76-1.46) 12/07/18 07:20 Cortisol AM Sample 8.7 ug/dL (6.2-19.4) 12/04/18 05:30 ACTH 2.2 PG/ML (7.2-63.3) L 12/04/18 05:30 prealbumin and albumin coming up - 22.4 and 2.4 Problem List - Problems (1) Intestinal adhesions with partial obstruction Assessment/Plan: POD33 s/p extensive lysis of adhesions and RUQ incisional hernia repair s/p hepaticojejunostomy in past with intestinal reconstruction - with dilated/ stagnant loop of anastomotic area had small enterotomy with small yellow fluid leakage repaired in proximal SB ( hepatic limb?) up under RUQ scar, near incisional hernia, minimal contamination POD16 s/p complex I&D of midline postop wound infection low output enterocutaneous fistula present under midportion of midline wound - appears to have sealed over with granulation tissue VAC changed with [facility] rep Giorgio Garcia - white foam in base, black foam strip over , no enteric content in wound, black foam bridged over top for larger/flat surface for trac-pad, good seal obtained at -125mm continuous pressure for transfer to [facility] in [place] - VAC should NOT be changed again until Sunday will clamp tubing when ambulance arrives, to be reconnected at facility instructions in d/c plan spoke with Ester, clinical liaison for facility [facility] is aware and should be able to follow her there as well COMPLETE NPO with TPN, IV meds only via PICC line from IR pain meds prn - tylenol first line, morphine as needed breakthrough and for dressing changes monitor labs, lytes, glucose TPN per renal + bowel function improved discussed with Dr. Medrano, primary team Code(s): K56.51 - INTESTINAL ADHESIONS [BANDS], WITH PARTIAL OBSTRUCTION (2) Infection following a procedure, superficial incisional surgical site, initial encounter Assessment/Plan: wound culture grew mostly sensitive E. coli, E. faecalis, yeast-like organism Code(s): T81.41XA - INFCT FOL A PROC, SUPERFIC INCISIONAL SURGICAL SITE, INIT (3) Enterocutaneous fistula Assessment/Plan: in context of PTFE mesh in situ in field/wound and underlying abnormal intestinal anatomy will need mesh removal, fistula takedown, reconstruction of abdominal wall discussed with Dr. Calzada at [place] he is ok with transfer to [facility] for complex wound care ([employer] VAC with white foam/ black foam), TPN and telemetry needs he would then see her as outpatient in his office from [facility] at 6 wks postop ( anytime after next 01/01) to decide when to have her transferred to [place] for intervention Code(s): K63.2 - FISTULA OF INTESTINE (4) Persistent postprocedural fistula, initial encounter Assessment/Plan: enterocutaneous fistula - may be closing continue TPN/complete NPO continue VAC - white foam in wound base, black over changed with no enteric content in wound for third time VAC changes 3x weekly - next on Sunday at [facility] transfer today for ongoing care, until it is time for evaluation by Dr. Rafael Calzada from [place] (6 wks postop) [facility] reps aware as noted above to continue to follow her there and assist with VAC care/changes while there might be able to try po challenge during [facility] stay to see if VAC/fistula output recurs/increases Code(s): T81.83XA - PERSISTENT POSTPROCEDURAL FISTULA, INITIAL ENCOUNTER (5) Incisional hernia, without obstruction or gangrene Code(s): K43.2 - INCISIONAL HERNIA WITHOUT OBSTRUCTION OR GANGRENE (6) Atrial fibrillation with RVR Assessment/Plan: converted back to ALL IV meds, completely NPO cardiology following on low-dose cardizem drip, transferred back to telemetry may be able to wean off when can go back on PO meds at [facility] or [place] maintain lytes in normal range heparin drip while NPO/Eliquis on hold PTT has been therapeutic Code(s): I48.91 - UNSPECIFIED ATRIAL FIBRILLATION (7) Hypertension Assessment/Plan: cardio managing, IV meds with clonidine patch Code(s): I10 - ESSENTIAL (PRIMARY) HYPERTENSION Qualifiers: Hypertension type: essential hypertension Qualified Code(s): I10 - Essential (primary) hypertension (8) Diabetes mellitus type 2 in obese Assessment/Plan: endo had seen earlier (also with incidental adrenal nodule - will need outpatient f/u testing) glucose management along with TPN - insulin added to TPN, renal managing Code(s): E11.69 - TYPE 2 DIABETES MELLITUS WITH OTHER SPECIFIED COMPLICATION; E66.9 - OBESITY, UNSPECIFIED (9) S/P ureteral stent placement Assessment/Plan: left ureteral stent in place since September; management per uro - pt may need laser lithotripsy with stent removal or exchange, ?as outpatient/while off anticoagulation mild increase in left hydronephrosis on last CT urology saw again - deferred stent change for now symptomatic UTI - yeast on culture, Ceftriaxone (had 5 days) stopped; on Diflucan (D5) ID following Code(s): Z96.0 - PRESENCE OF UROGENITAL IMPLANTS (10) Gout Assessment/Plan: home med on hold Code(s): M10.9 - GOUT, UNSPECIFIED Qualifiers: Gout site: toe Gout etiology: unspecified cause Chronicity: unspecified Laterality: unspecified laterality Qualified Code(s): M10.9 - Gout, unspecified (11) CKD (chronic kidney disease) stage 3, GFR 30-59 ml/min Assessment/Plan: nephrology following and managing TPN daily labs BUN/Cr stable Code(s): N18.3 - CHRONIC KIDNEY DISEASE, STAGE 3 (MODERATE)
--- NOTE | 2018-12-23 12:37 | DS ---
Physical Examination Vital Signs: Vital Signs Temperature 98.8 F 12/23/18 08:28 Pulse Rate 128 H 12/23/18 08:28 Respiratory Rate 20 12/23/18 08:28 Blood Pressure 156/90 12/23/18 08:28 O2 Sat by Pulse Oximetry (%) 97 12/23/18 08:26 Constitutional: Yes: Calm Neck: Yes: Trachea Midline Cardiovascular: Yes: Regular Rate and Rhythm, S1, S2 Respiratory: Yes: CTA Bilaterally Gastrointestinal: Yes: Normal Bowel Sounds, Soft, Other (midline wound packed with vac) Edema: No Neurological: Yes: Alert, Oriented Labs: CBC, BMP 12/23/18 08:00 12/23/18 08:00 Discharge Summary Reason For Visit: ABDOMINAL PAIN Current Active Problems Adrenal adenoma (Acute) Anemia (Acute) Atrial fibrillation with RVR (Acute) CKD (chronic kidney disease) stage 3, GFR 30-59 ml/min (Acute) Constipation (Acute) Diabetes mellitus type 2 in obese (Acute) Distended abdomen (Acute) Diverticula of colon (Acute) Enterocutaneous fistula (Acute) Generalized abdominal pain (Acute) Gout (Acute) Head ache (Acute) Headache (Acute) History of cholecystectomy (Acute) History of common bile duct surgery (Acute) Hypertension (Acute) Hypomagnesemia (Acute) Ileitis (Acute) Incisional hernia, without obstruction or gangrene (Acute) Infection following a procedure, superficial incisional surgical site, initial encounter (Acute) Intestinal adhesions with partial obstruction (Acute) New onset a-fib (Acute) Persistent postprocedural fistula, initial encounter (Acute) Pneumobilia (Acute) RUQ pain (Acute) S/P ureteral stent placement (Acute) Small bowel obstruction (Acute) UTI (urinary tract infection) (Acute) Hospital Course: CHIEF COMPLAINT: Abdominal Pain PCP: Dr. Prasad HISTORY OF PRESENT ILLNESS: Severe pain radiating to the pack; nothing makes it better or worse. On cipro for UTI. Found to have abdominal tenderness on examination. Afebrile and hemodynamically stable. Found to have a slight LA elevation and slightly elevated Cr over her baseline with a minor leukocytosis. CT abdomen/pelvis done and was shown to have L-ureteral stent in place with some mild L-hydro, uncomplicated diverticulitis, and a dilated loop of small bowel in the RLQ that radiology comments is most likely postoperative appearance wather than a true SBO as per the preliminary read. D Recent Travel: None PAST MEDICAL HISTORY: CKD, HTN, DM, nephrolithiasis s/p L-stent Dr. Fleming PAST SURGICAL HISTORY: Recent L-ureteral stent placement extensive hospital course btw telemetry and icu floor exploratory laporotomy with lysis of adhesion and hernia repair on 11/20/18 wound vac placed Pt postop course complicated by new onset afib with RVR and subsequent identification of enterocutaneous fistula in wound, which was initially opened for spontaneous drainage. HR had been controlled and in sinus on po meds and she was on Eliquis until all po meds stopped, and then patient put on iv cardizem drip and iv heparin drip and transferred to ICU for RVR got loading dose of digoxin She had previously tolerated soft diabetic diet, though with marginal po intake. She is now complete NPO with TPN and IV meds only, via PICC. Wound/ fistula management with VAC (white foam at base over necrotic fascia, black over that). Carla/light brown fluid in VAC canister, now translucent, low output. Last 2 VAC changes with no enteric content in wound - site appears to be sealing over. nutrition is TPN with insulin in bag, lipids every other day. for ureteral stent Follow up with urology as outpatient Had CTA chest with no evidence of PE, very small pleural effusion. plan to folow up with Surgery as outpatient , bowel rest for 3 more weeks and then transfer to [facility] for further wound management yeast in urine - iv dilfucan Microbiology 12/16/18 10:06 Urine - Urine Clean Catch Urine Culture - Final Yeast Like Organism to continue iv abx for another 7 days Condition: Stable - Instructions Diet, Activity, Other Instructions: Postoperative instructions: You had an abdominal exploration with extensive lysis of adhesions and suture repair of a small right upper quadrant incisional hernia on 11/20/[address] Neal Rodney of [facility]. Your midline wound was reopened on 12/07/18, and an enterocutaneous fistula (abnormal connection of small intestine to the wound/outside) was identified. Because of this, you have not been able to eat, drink or take oral medications. A PICC line was placed, and you are getting IV nutrition (TPN), and all IV medicines. You also developed atrial fibrillation postoperatively, and have been on medications to control your heart rate and blood pressure, as well as a blood thinner to reduce the risk of stroke. Activity: You may walk, sit and move with physical therapy, but you may not do any heavy exertion or lifting more than 10-15 pounds. Wound Care: Your midline abdominal incision was opened and is being treated with a special dressing called a VAC. The VAC dressing uses a small strip of WHITE FOAM in the base, then a strip of BLACK FOAM over that, and is changed about 3 times a week. A larger piece of black foam is bridged on top of the VAC dressing for the trac-pad (suction tubing) to be placed on, where it can remain flat. The VAC provides continuous suction at negative 125mm of pressure. Pain: For pain, you are being given IV Tylenol as needed, and morphine for VAC changes and when necessary for breakthrough pain. You are being transferred to a [facility] ([facility]) - [facility] in [place], [place] - for ongoing care, including TPN, IV medications and telemetry monitoring, heparin drip (blood thinner), and VAC changes, until you are at least six weeks out from your operation (January 01). At that point, Renae will need to arrange to send you to see Dr. Rafael Calzada, a surgeon at [facility], in his office, for evaluation of when he can reoperate to remove the mesh from your abdominal wall, fix the intestinal fistula and close you back up. His office number is [phone]. You will probably have to take VAC supplies WITH YOU TO HIS OFFICE, so that he can examine your wound and reapply the VAC dressing. This includes white foam, black foam strips (either the XL package or Simplace foam), sticky drape, a trac -pad and SKIN PREP PADS. Later this week, it is possible that Renae may consider trying to resume oral medications with sips of water, and possibly clear liquids or other oral intake. If the VAC output increases, or intestinal content reappears in the wound, they will probably have to stop again and revert to all IV medications. Follow-up: Renae, Dr. Calzada, or any other doctor may call Dr. Rodney's office at with any questions relating to your midline wound, VAC or postoperative issues. You still have a stent in your left ureter and some hydronephrosis, which will need followup with urology as well. You are also being treated for a urinary tract infection (yeast on culture) with Diflucan (today is day 5). You will also need outpatient followup with endocrinology at some point to follow up on a small adrenal mass noted on CT scan, as well as for your diabetes. You will eventually have to follow up with Dr. Raj Perry, your buildings painter, as well. check weekly lab work cbc ,cmp,magnesium,calcium and phosphorous Referrals: Elvin Prasad MD [Primary Care Provider] - Raj Perry MD [Staff Physician] - Chantel Allen RN [Registered Nurse] - Neal Rodney MD [Staff Physician] - Eyal Medina MD [Staff Physician] - Nelly Fleming MD [Staff Physician] - Ricardo Benavidez MD [Staff Physician] - 1 Month (for Diabetes managment) Disposition: TRANSFER ACUTE CARE/OTHER HOSP - Home Medications Comprehensive Discharge Medication List: Ambula9
[2018-12-23 14:16] VITALS: BP 136/78; PULSE 132
[2018-12-23] MEDS ORDERED: morphine SULFATE 4 MG/ML VIAL IVPUSH PRN (14:20)
[2018-12-23] MEDS ORDERED: morphine SULFATE 4 MG/ML VIAL IVPUSH ONE (14:30)
--- NOTE | 2018-12-23 15:46 | PN ---
Progress Note (short form) - Note Progress Note: Renal follow up for CHACHA Pt seen and examined at the bedside abd pain controlled with IV opiods no sob, cp, fever or chills making urine, denies any flank pain Vital Signs Temperature 98.8 F 12/23/18 08:28 Pulse Rate 132 H 12/23/18 14:15 Respiratory Rate 20 12/23/18 14:15 Blood Pressure 136/78 12/23/18 14:15 O2 Sat by Pulse Oximetry (%) 97 12/23/18 08:26 Intake & Output 12/20/18 12/21/18 12/22/18 12/23/18 23:59 23:59 23:59 23:59 Intake Total 2854 2622 1958 2190 Output Total 50 1650 400 400 Balance 2804 972 1558 1790 Weight 84.459 kg 84.323 kg 90.356 kg NAD tachycardic Dec BS slight abd tenderness no edema CBC, BMP 12/23/18 08:00 12/23/18 08:00 72 year old woman with hx of CKD, Nephrolithiasis, DM who presented with Abd pain secondary to SBO s/p surgical intervention with CHACHA. #CHACHA/CKD #SBO s/p OR #enterocutaneous fistula #Prolonged NPO #Hypoalbuminema #Abd wound infection #LE edema #Chest Pain/Tightness Renal function stable Continue TPN while pt remains NPO. updated TPN orders placed in chart to be taken to [facility] will need to monitor electrolytes and triglycerides discharge planning as per primary and surgery Thank you Ethan Ram DO
[2018-12-23] MEDS ORDERED: SODIUM ACETATE IVPB SCH (16:00)
[2018-12-23] MEDS ORDERED: [UNRECOGNIZED DRUG - OTHER] IVPB SCH (16:00)
[2018-12-23] MEDS ORDERED: POTASSIUM PHOSPHATE IVPB SCH (16:00)
[2018-12-23] MEDS ORDERED: POTASSIUM CHLORIDE IVPB SCH (16:00)
== END 2018-12-23 15:16 | DRG 329 ==
LOC: JER 13:53 → JERBED 20:09 → J8W 11-17 04:27 → OBSVTOIN 11-19 08:56 → J4W 11-22 17:06 → JICU 12-13 18:56 → J4W 12-19 17:39
PROVIDERS: ADMIT Family Medicine; ATTEND Family Medicine
PROC: 0WQF0ZZ Repair Abdominal Wall, Open Approach (ICD-10-PCS; 2018-11-20)
PROC: 0DNW0ZZ Release Peritoneum, Open Approach (ICD-10-PCS; 2018-11-20)
PROC: 0WQN0ZZ Repair Female Perineum, Open Approach (ICD-10-PCS; 2018-11-20)
PROC: 0DQ80ZZ Repair Small Intestine, Open Approach (ICD-10-PCS; principal; 2018-11-20 08:00)
PROC: 30233N1 Transfusion of Nonautologous Red Blood Cells into Peripheral Vein, Percutaneous Approach (ICD-10-PCS; 2018-12-01)
PROC: 0J980ZX Drainage of Abdomen Subcutaneous Tissue and Fascia, Open Approach, Diagnostic (ICD-10-PCS; 2018-12-07)
PROC: 2W13X6Z Compression of Abdominal Wall using Pressure Dressing (ICD-10-PCS; 2018-12-07)
PROC: 02HV33Z Insertion of Infusion Device into Superior Vena Cava, Percutaneous Approach (ICD-10-PCS; 2018-12-11)
PROC: B518ZZA Fluoroscopy of Superior Vena Cava, Guidance (ICD-10-PCS; 2018-12-11)
PROC: 3E0436Z Introduction of Nutritional Substance into Central Vein, Percutaneous Approach (ICD-10-PCS; 2018-12-15)
PROC: 05HC33Z Insertion of Infusion Device into Left Basilic Vein, Percutaneous Approach (ICD-10-PCS; 2018-12-16)
PROC: B54NZZA Ultrasonography of Left Upper Extremity Veins, Guidance (ICD-10-PCS; 2018-12-16)
DX: K56.51 Intestinal adhesions [bands], with partial obstruction (principal); G93.41 Metabolic encephalopathy; N13.6 Pyonephrosis; N17.9 Acute kidney failure, unspecified; I47.1 Supraventricular tachycardia; K43.0 Incisional hernia with obstruction, without gangrene; I13.0 Hypertensive heart and chronic kidney disease with heart failure and stage 1 through stage 4 chronic kidney disease, or unspecified chronic kidney disease; I50.32 Chronic diastolic (congestive) heart failure; T81.41XA Infection following a procedure, superficial incisional surgical site, initial encounter; T81.83XA Persistent postprocedural fistula, initial encounter; K63.2 Fistula of intestine; E78.5 Hyperlipidemia, unspecified; K56.2 Volvulus; R10.11 Right upper quadrant pain; I12.9 Hypertensive chronic kidney disease with stage 1 through stage 4 chronic kidney disease, or unspecified chronic kidney disease; E11.22 Type 2 diabetes mellitus with diabetic chronic kidney disease; N18.3 Chronic kidney disease, stage 3 (moderate); M10.9 Gout, unspecified; E66.9 Obesity, unspecified; M54.5 Low back pain; Z68.33 Body mass index [BMI] 33.0-33.9, adult; K57.90 Diverticulosis of intestine, part unspecified, without perforation or abscess without bleeding; D35.00 Benign neoplasm of unspecified adrenal gland; K52.9 Noninfective gastroenteritis and colitis, unspecified; K59.00 Constipation, unspecified; K83.8 Other specified diseases of biliary tract; I48.91 Unspecified atrial fibrillation; I27.20 Pulmonary hypertension, unspecified; D64.9 Anemia, unspecified; R26.9 Unspecified abnormalities of gait and mobility; R51 Headache; E86.1 Hypovolemia; E87.5 Hyperkalemia; E83.42 Hypomagnesemia; E11.65 Type 2 diabetes mellitus with hyperglycemia; Z87.442 Personal history of urinary calculi; Z96.653 Presence of artificial knee joint, bilateral; Z96.0 Presence of urogenital implants; Z90.49 Acquired absence of other specified parts of digestive tract; Z98.890 Other specified postprocedural states
CPT/HCPCS: 36415; 36430; 36511; 36569; 70450-TC; 71045-TC-FY; 71275-TC; 74019-TC-FY; 74174-TC; 74176-TC; 76775-TC; 77001-TC-FY; 78290-TC; 80048; 80053; 81003; 82024; 82150; 82533; 82550; 82570; 82607; 82728; 82962; 83036; 83540; 83550; 83605; 83615; 83690; 83735; 83935; 84100; 84134; 84156; 84300; 84439; 84443; 84478; 84484; 84585; 85025; 85027; 85610; 85651; 85730; 86140; 86671; 86850; 86900; 86901; 86922; 87040; 87070; 87077; 87086; 87186; 87205; 93005; 93010; 93306-TC; 94010; 94760; 94761; 97116-GP; 97161-GP; 99285-25; A9512; C1751; G0378; J0131; J0735; J1644; J1756; J3480; J7030; J8540; P9038; P9058

== ENCOUNTER 2020-03-01 11:08 | Emergency (ER) | payer OTHER ==
[2020-03-01 11:18] VITALS: BP 175/58; PULSE 57; TEMP 98.5; BMI 39.9
--- NOTE | 2020-03-01 11:18 | PDOC ---
Rapid Medical Evaluation Time Seen by Provider: 03/01/20 11:11 Medical Evaluation: Allergies Allergy/AdvReac Type Severity Reaction Status Date / Time latex Allergy Severe Swelling Verified 03/01/20 11:13 insulin lispro [From Humalog] Allergy Intermediate Generalized Verified 03/01/20 11:13 rash and itching naproxen [From Naprosyn] Allergy Swelling Verified 03/01/20 11:13 oxaprozin [From Daypro] Allergy Swelling Verified 03/01/20 11:13 saxagliptin HCl Allergy leg edema Verified 03/01/20 11:13 [From Onglyza] latex Allergy Severe Uncoded 03/01/20 11:13 Mushrooms Allergy Uncoded 03/01/20 11:13 naproxen Allergy Uncoded 03/01/20 11:13 03/01/20 11:13 I have performed a brief in-person evaluation of this patient. The patient presents with a chief complaint of: H/o HTN, DM, CKD, here for ?worsening renal function. Pt has been in [place] from 08/15 and arrived in [facility] 4 days ago. While in [place] visited a doctor and had routine blood drawn, received call this am that "my kidney test is real bad". [facility] labs were faxed over to renal MD, Dr Kahn. Pt states while still in [facility], began to feel unwell and got sob on plane but attributes it to the mask she was wearing. Also report chest tightness while on plane. No f/c. Feels better now. No n/v or weakness Pertinent physical exam findings:BP 175/58, well morgan I have ordered the following:covid/labs/cxr/ekg The patient will proceed to the ED for further evaluation. Discharge Disposition - Diagnosis Chest tightness - Referrals - Patient Instructions - Post Discharge Activity
--- NOTE | 2020-03-01 11:35 | PDOC ---
History of Present Illness - General Chief Complaint: Abnormal Lab Results (Outside) Stated Complaint: ABN LAB RESULTS/SENT BY PCP Time Seen by Provider: 03/01/20 11:11 History Source: Patient Exam Limitations: No Limitations - History of Present Illness Initial Comments: 03/01/20 11:35 74yF w PMHx HTN, DM, CKD, nephrolithasis s/p stent, SBO s/p surgery, a fib on eliquis sent by PCP for abnormal lab values showing worsening renal function and anemia. Pt has been in [place] from July and arrived back in [facility] 3 days ago. While in [place] visited a doctor and had routine blood drawn, received call this am that "my kidney test is bad". [facility] labs were faxed over to renal MD, Dr Kahn. Pt states while still in [facility], began to feel unwell and got sob on plane and placed on supplemental O2 but attributes it to the mask she was wearing. Currently denies fever, headache, chest pain, SOB, n/v, abd pain, urinary/bowel mvmt changes, lightheadedness, rectal bleeding Past History - Medical History Allergies/Adverse Reactions: Allergies Allergy/AdvReac Type Severity Reaction Status Date / Time latex Allergy Severe Swelling Verified 03/01/20 12:26 insulin lispro [From Humalog] Allergy Intermediate Generalized Verified 03/01/20 12:26 rash and itching naproxen [From Naprosyn] Allergy Swelling Verified 03/01/20 12:26 oxaprozin [From Daypro] Allergy Swelling Verified 03/01/20 12:26 saxagliptin HCl Allergy leg edema Verified 03/01/20 12:26 [From Onglyza] latex Allergy Severe Uncoded 03/01/20 12:26 Mushrooms Allergy Uncoded 03/01/20 12:26 naproxen Allergy Uncoded 03/01/20 12:26 Home Medications: Ambulatory Orders Acetaminophen 500 mg PO QID 03/01/20 Allopurinol [Zyloprim -] 100 mg PO DAILY 03/01/20 Amiodarone HCl [Cordarone -] 200 mg PO DAILY 03/01/20 Apixaban [Eliquis -] 1 tab PO BID 03/01/20 Ascorbic Acid [Vitamin C -] 500 mg PO DAILY 03/01/20 Atorvastatin Calcium 20 mg PO HS 03/01/20 Cephalexin [Keflex] 500 mg PO Q6H 7 Days #28 capsule 03/01/20 Clonidine Patch [Catapres Tts Patch -] 0.2 mg TD WEEKLY 03/01/20 Hydralazine HCl 50 mg PO BID 03/01/20 Insulin (LOG) Aspart [NovoLOG -] 7 units SQ BID 03/01/20 Insulin Glargine,Hum.rec.anlog [Basaglar Kwikpen U-100] 40 units SQ DAILY 03/01/20 Isosorbide Mononitrate [Isosorbide Mononitrate ER] 30 mg PO DAILY 03/01/20 Metoprolol Succinate 100 mg PO DAILY 03/01/20 Potassium Citrate [Potassium Citrate ER] 30 meq PO DAILY 03/01/20 Torsemide 100 mg PO DAILY 03/01/20 Anemia: No Asthma: No Cancer: No Cardiac Disorders: No CVA: No COPD: No CHF: No Dementia: No Diabetes: Yes GI Disorders: No Disorders: Yes (kidney stones) HTN: Yes Hypercholesterolemia: No Liver Disease: No Seizures: No Thyroid Disease: No - Surgical History Abdominal Surgery: Yes (HERNIA REPAIR WITH MESH IMPLANT) Appendectomy: No Cardiac Surgery: No Cholecystectomy: No Lung Surgery: No Neurologic Surgery: No Orthopedic Surgery: Yes (L/R KNEE REPLACEMENT) - Immunization History Immunization Up to Date: Yes - Psycho-Social/Smoking History Smoking Status: No Smoking History: Never smoked Have you smoked in the past 12 months: No Number of Cigarettes Smoked Daily: 0 Cigars Per Day: 0 - Substance Abuse Hx (Audit-C & DAST Scrn) How often the patient has a drink containing alcohol: Never Score: In Men: 4 or > Positive; In Women: 3 or > Positive: 0 Screen Result (Pos requires Nsg. Audit-10AR): Negative In the last yr the pt used illegal drug/Rx for NonMed reason: No Score: Yes response is considered Positive: 0 Screen Result (Positive result requires Nsg. DAST-10): Negative Review of Systems - Review of Systems Constitutional: No: Chills, Fever HEENTM: No: Eye Pain, Nose Congestion Respiratory: No: Cough, Shortness of Breath Cardiac (ROS): No: Chest Pain, Palpitations ABD/GI: No: Constipated, Diarrhea, Nausea, Vomiting : No: Burning, Dysuria Musculoskeletal: No: Back Pain, Joint Pain Integumentary: No: Bruising, Flushing Neurological: No: Headache, Seizure Psychiatric: No: Anxiety, Depression Endocrine: No: Intolerance to Cold, Intolerance to Heat Hematologic/Lymphatic: No: Blood Clots, Easy Bruising *Physical Exam - Vital Signs Last Vital Signs Temp Pulse Resp BP Pulse Ox 98.5 F 57 L 18 175/58 H 98 03/01/20 11:14 03/01/20 11:14 03/01/20 11:14 03/01/20 11:14 03/01/20 11:14 - Physical Exam General Appearance: Yes: Nourished, Appropriately Dressed, Obese. No: Apparent Distress HEENT: positive: EOMI, RAJANI, Normal Voice, Hearing Grossly Normal. negative: Scleral Icterus (R), Scleral Icterus (L) Respiratory/Chest: positive: Lungs Clear, Normal Breath Sounds. negative: Chest Tender, Respiratory Distress Cardiovascular: positive: Regular Rhythm, S1, S2, Bradycardia. negative: Edema, Murmur Gastrointestinal/Abdominal: positive: Normal Bowel Sounds, Flat, Soft. negative: Tender, Organomegaly Extremity: positive: Pedal Edema (+2 edema umberto) Integumentary: positive: Normal Color, Warm. negative: Dry Neurologic: positive: Fully Oriented, Alert, Normal Mood/Affect, Normal Response ED Treatment Course - LABORATORY CBC & Chemistry Diagram: 03/01/20 11:44 03/01/20 11:25 Medical Decision Making - Medical Decision Making 03/01/20 12:20 CXR - clear lung sr EKG - sinus bradycardia w 1st deg block, HR 52, QTc 502, no ST changes CT A/P - no acute pathology, no sign of obstructing pathology or stone, fecal matter --- 74yF w PMHx HTN, DM, CKD, nephrolithasis s/p stent, SBO s/p surgery, a fib on eliquis sent by PCP for abnormal lab values showing worsening renal function and anemia, and progressive worsening L flank pain during ED visit Has a UTI. Cr at baseline 2.5 from 2.3 in setting of chronic kidney injury. Anemia Hgb 8.2 from 11.1 (07/18/19) likely d/t low EPO from CKD, FOBT negative, no active bleeding. Elevated BNP likely d/t CKD. Low concern for CHF exacerbation (no SOB) vs ACS (neg trop, no ST changes) vs kidney stone (no stone on CT) Given tylenol, 4 morphine w pain relief Called Dr Kahn urology - senior integration developer Dr Ram agrees w plan to DC and f/u outpatient DC home w keflex, neph/PCP f/u Discharge - Discharge Information Problems reviewed: Yes Clinical Impression/Diagnosis: SOB (shortness of breath) UTI (urinary tract infection) Qualifiers: Urinary tract infection type: acute cystitis Hematuria presence: without hematuria Qualified Code(s): N30.00 - Acute cystitis without hematuria CKD (chronic kidney disease) Qualifiers: Chronic kidney disease stage: unspecified stage Qualified Code(s): N18.9 - Chronic kidney disease, unspecified Condition: Improved Disposition: HOME - Additional Discharge Information Prescriptions: Cephalexin [Keflex] 500 mg PO Q6H 7 Days #28 capsule - Follow up/Referral Referrals: Betsey Pak [Primary Care Provider] - - Patient Discharge Instructions Patient Printed Discharge Instructions: DI for Urinary Tract Infection (UTI) Additional Instructions: You have a urine infection. Your blood levels are also low Take the prescribed Keflex as directed Take tylenol if you have pain. Drink lots of water Please follow up with your urologist Dr Kahn regarding your kidneys and your primary care doctor for your low blood levels. - Post Discharge Activity
[2020-03-01 12:00] LABS: EOS % 1.2 % (0-4.5); HEMATOCRIT 26.2 % (32.4-45.2); HEMOGLOBIN 8.2 GM/dL (10.7-15.3); MCH 23.7 pg (25.7-33.7); MCHC 31.5 g/dl (32.0-36.0); MEAN CELL VOLUME 75.2 fl (80-96); MEAN PLT VOLUME 8.5 fl (7.5-11.1); MONO % 12.7 % (3.8-10.2); NEUT % 68.1 % (42.8-82.8); PLATELET COUNT 270 K/MM3 (134-434); RBC 3.48 M/mm3 (3.60-5.2); RDW 17.1 % (11.6-15.6); WHITE BLOOD COUNT 6.5 K/mm3 (4.0-10.0)
[2020-03-01 12:25] LABS: INR 1.71 (0.83-1.09); PROTHROMBIN TIME (PATIENT) 20.3 SEC (9.7-13.0)
[2020-03-01 12:31] LABS: ALBUMIN 3.2 g/dl (3.4-5.0); ALK PHOS 98 U/L (45-117); ANION GAP 7 MMOL/L (8-16); BILIRUBIN,TOTAL 0.8 mg/dL (0.2-1); CALCIUM 8.6 mg/dL (8.5-10.1); CHLORIDE 104 mmol/L (98-107); CO2 32 mmol/L (21-32); CREATININE 2.5 mg/dL (0.55-1.3); GLUCOSE,RANDOM 146 mg/dL (74-106); N-TERMINAL BNP 2616.4 pg/ml (5-450); POTASSIUM 3.9 mmol/L (3.5-5.1); SGOT/AST 16 U/L (15-37); SGPT/ALT 19 U/L (13-61); SODIUM 143 mmol/L (136-145)
[2020-03-01] MEDS ORDERED: ACETAMINOPHEN 325 MG TABLET (FP) PO ONE (12:49)
[2020-03-01] MEDS ORDERED: ACETAMINOPHEN 325 MG TABLET (FP) ONE (13:08)
--- NOTE | 2020-03-01 14:02 | EKG ---
Test Reason : Blood Pressure : / mmHG Vent. Rate : 052 BPM Atrial Rate : 052 BPM P-R Int : 288 ms QRS Dur : 128 ms QT Int : 540 ms P-R-T Axes : 059 -13 073 degrees QTc Int : 502 ms SINUS BRADYCARDIA WITH 1ST DEGREE A-V BLOCK NON-SPECIFIC INTRA-VENTRICULAR CONDUCTION BLOCK ABNORMAL ECG WHEN COMPARED WITH ECG OF 13-DEC-2018 12:12, [place] INTERVAL HAS INCREASED VENT. RATE HAS DECREASED BY 32 BPM Confirmed by Henny Del Rio ([id number]) on 03/01/2020 2:01:46 PM Referred By: Confirmed By:Henny Del Rio
[2020-03-01] MEDS ORDERED: morphine CARPU-JECT 4 MG/1 ML DISP.SYRIN IVPUSH ONE (14:11)
[2020-03-01] MEDS ORDERED: morphine SULFATE 4 MG/ML VIAL ONE (14:15)
[2020-03-01 15:22] LABS: EPI CELLS 36 /uL (0-25.1); HYALINE CASTS 1 /uL (0-3.1); PH,URINE 8.5 (5.0-8.0); URINE APPEARANCE CLEAR; URINE BACTERIA 57 /uL (0-1359); URINE BILIRUBIN NEGATIVE (NEGATIVE); URINE COLOR YELLOW; URINE GLUCOSE (UA) NEGATIVE (NEGATIVE); URINE KETONE NEGATIVE (NEGATIVE); URINE LEUK ESTERASE 2+ (NEGATIVE); URINE NITRITE NEGATIVE (NEGATIVE); URINE PROTEIN 2+ (NEGATIVE); URINE RBC 32 /uL (0-23.9); URINE WBC 290 /uL (0-25.8)
--- NOTE | 2020-03-01 18:29 | PDOC ---
Documentation entered by Georgie Bradley SCRIBE, acting as scribe for Consuelo Lindsey MD. Consuelo Lindsey MD: This documentation has been prepared by the Mirna simmons Brenda, SCRIBE, under my direction and personally reviewed by me in its entirety. I confirm that the documentation accurately reflects all work, treatment, procedures, and medical decision making performed by me. Attending Attestation - Resident Resident Name: Nando Tellez - ED Attending Attestation I have performed the following: I have examined & evaluated the patient, The case was reviewed & discussed with the resident, I agree w/resident's findings & plan, Exceptions are as noted - HPI HPI: 03/01/20 11:42 The patient is a 74 year old female with a significant PMH of HTN, DM, CKD who presents to the ED for evaluation of abnormal lab results. Patient notes that he has been in [place] since 08/15/19 and [facility]. She noted that while in [place], she visited a doctor for a routine blood test, reporting that she received a call this morning stating that the test for "her kidneys were bad". Pt reports a history of kidney problems and is followed by Dr. Tracy (renal). She does not know what her baseline creatinine is and this was the first time she saw the doctor in [place]. In addition, patient reports while on the plane 4 days ago, she felt SOB that resolved when she removed her mask. She denies associated CP at the time, or any other symptoms. No SOB since that episode on the plane 4 days ago. Denies recent headache, fevers, chills, cough, sore throat, abd pain, focal weakness/numbness, urinary sxs, dark or bloody stools. - Physicial Exam PE: 03/01/20 11:48 Agree with resident's exam - Medical Decision Making 03/01/20 13:27 74yo F MMP including CKD presents to the ED with abnormal renal function on outpt labs done in [place] This was first time pt had labs drawn at [place] office and thus they likely did not know her baseline CKD Labs here reveal creatinine 2.5, last level was 2.3 BNP elevated but pt has no evidence of fluid overload, and CXR clear with normal sats. Likely elevated 2/2 Pt is asymptomatic, reports she had SOB 2/2 to her mask while on plane that resolved with removal of mask and a few mins of supplemental O2. No SOB/CP since then. While in ED, pt c/o L sided flank pain. Pain reproducible when palpating L flank Will obtain CTAP to r/o kidney stone, obs, reassess 03/01/20 15:19 CTAP negative for acute path UA+ for UTI Pt covered with keflex based on previous sensitivities Flank pain resolved after tylenol and morphine CHACHA discussed with Dr. Ram (renal), recommends outpt f/u for elevated creatinine as this is her baseline Hgb 8.3, but heme occult negative and pt with no dark or bloody stools. Will have pt f/u with PMD within 1 week for repeat Pt is asymptomatic, well appearing, clinically stable for DC home I discussed the physical exam findings, ancillary test results and final diagnoses with the patient. I answered all of the patient's questions. The patient was satisfied with the care received and felt comfortable with the discharge plan and treatment plan. The patient will call their primary care physician within 24 hours to arrange follow-up and will return to the Emergency Department with any new, persistent or worsening symptoms. Discharge - Discharge Information Problems reviewed: Yes Clinical Impression/Diagnosis: SOB (shortness of breath) UTI (urinary tract infection) Qualifiers: Urinary tract infection type: acute cystitis Hematuria presence: without hematuria Qualified Code(s): N30.00 - Acute cystitis without hematuria CKD (chronic kidney disease) Qualifiers: Chronic kidney disease stage: unspecified stage Qualified Code(s): N18.9 - Chronic kidney disease, unspecified Condition: Improved Disposition: HOME - Additional Discharge Information Prescriptions: Cephalexin [Keflex] 500 mg PO Q6H 7 Days #28 capsule - Follow up/Referral Referrals: Betsey Pak [Primary Care Provider] - - Patient Discharge Instructions Patient Printed Discharge Instructions: DI for Urinary Tract Infection (UTI) Additional Instructions: You have a urine infection. Your blood levels are also low Take the prescribed Keflex as directed Take tylenol if you have pain. Drink lots of water Please follow up with your urologist Dr Kahn regarding your kidneys and your primary care doctor for your low blood levels. - Post Discharge Activity
== END 2020-03-01 16:16 | disposition home or self-care (01) ==
LOC: JER 11:08
PROC: 3E033GC Introduction of Other Therapeutic Substance into Peripheral Vein, Percutaneous Approach (ICD-10-PCS; principal; 2020-03-01)
DX: N30.00 Acute cystitis without hematuria (principal); N18.9 Chronic kidney disease, unspecified; R06.02 Shortness of breath
CPT/HCPCS: 36415; 71045-TC-FY; 74176-TC; 80053; 81003; 82272; 82550; 83880; 84484; 85025; 85610; 86850; 86900; 86901; 87086; 93005; 93010; 96374; 99285-25; U0003

== ENCOUNTER 2020-12-16 07:38 | Day surgery (SDC) | payer OTHER ==
[2020-12-13 10:52] VITALS: BMI 37.7
[2020-12-16] MEDS ORDERED: LIDOCAINE HCL/PF 2% SDV 5ML VIAL ONE (07:47)
[2020-12-16] MEDS ORDERED: PROPOFOL 20 ML ONE ×3 (07:47)
[2020-12-16 09:55] VITALS: TEMP 97.8
[2020-12-16 12:51] VITALS: BP 137/67; PULSE 58
== END 2020-12-16 10:50 | disposition home or self-care (01) ==
LOC: FASU-ENDO 07:38
PROVIDERS: ATTEND Internal Medicine Gastroenterology
PROC: 0DB98ZX Excision of Duodenum, Via Natural or Artificial Opening Endoscopic, Diagnostic (ICD-10-PCS; 2020-12-16)
PROC: 0DB78ZX Excision of Stomach, Pylorus, Via Natural or Artificial Opening Endoscopic, Diagnostic (ICD-10-PCS; 2020-12-16)
PROC: 0DJD8ZZ Inspection of Lower Intestinal Tract, Via Natural or Artificial Opening Endoscopic (ICD-10-PCS; principal; 2020-12-16 08:38)
DX: D50.9 Iron deficiency anemia, unspecified (principal); K29.50 Unspecified chronic gastritis without bleeding; K57.30 Diverticulosis of large intestine without perforation or abscess without bleeding; Z88.8 Allergy status to other drugs, medicaments and biological substances
CPT/HCPCS: 82962; 88305-TC; 88342-TC

== ENCOUNTER 2020-12-24 12:21 | Inpatient (IN) | payer OTHER ==
[2020-12-24 12:31] VITALS: BMI 39.3
[2020-12-24 13:58] LABS: BASO % 0.5 % (0-2.0); EOS % 2.7 % (0-4.5); HEMATOCRIT 25.5 % (32.4-45.2); LYMPH % 7.9 % (8-40); MCH 23.7 pg (25.7-33.7); MCHC 31.3 g/dl (32.0-36.0); MEAN CELL VOLUME 75.8 fl (80-96); MEAN PLT VOLUME 8.8 fl (7.5-11.1); MONO % 10.1 % (3.8-10.2); NEUT % 78.8 % (42.8-82.8); PLATELET COUNT 279 K/MM3 (134-434); RBC 3.36 M/mm3 (3.60-5.2); RDW 19.1 % (11.6-15.6); WHITE BLOOD COUNT 6.3 K/mm3 (4.0-10.8)
[2020-12-24 14:02] LABS: ADD RBC MORPHOLOGY YES
[2020-12-24 14:04] LABS: ACTIVATED PTT 30.1 SECONDS (25.2-36.5)
[2020-12-24 14:09] LABS: INR 1.93 (0.82-1.09); PROTHROMBIN TIME (PATIENT) 20.7 SEC (10.2-13.0)
[2020-12-24 14:18] LABS: ALBUMIN 3.3 g/dl (3.4-5.0); BILIRUBIN,TOTAL 0.9 mg/dl (0.2-1); CALCIUM 8.5 mg/dl (8.5-10); CREATININE 1.7 mg/dl (0.55-1.3); MAGNESIUM 2.3 mg/dL (1.8-2.4); PHOSPHOROUS 3.5 mg/dl (2.5-4.9); TOT PROT 6.8 g/dl (6.4-8.2)
[2020-12-24 14:27] LABS: ANISOCYTOSIS 2+
[2020-12-24 14:28] LABS: PLATELET ESTIMATE ADEQUATE
[2020-12-24] MEDS ORDERED: ACETAMINOPHEN 325 MG TABLET (FP) PO ONE (14:48)
[2020-12-24] MEDS ORDERED: ACETAMINOPHEN 325 MG TABLET (FP) ONE (14:52)
[2020-12-24 15:19] LABS: VENOUS BASE EXCESS 0.6 mmol/L (-2-2); VENOUS O2 SATURATION 68.7 % (70-80); VENOUS PCO2 47.4 mmHg (38-52); VENOUS PH 7.366 (7.310-7.410)
[2020-12-24] MEDS ORDERED: TORSEMIDE 100 MG TABLET PO ONE (15:42)
[2020-12-24 17:31] LABS: N-TERMINAL BNP 3244.2 pg/ml (5-450)
[2020-12-24] MEDS: hydrALAZINE HCL 10 MG TABLET PO SCH (21:16)
[2020-12-24] MEDS: APIXABAN 5 MG TABLET PO SCH (21:16)
[2020-12-24] MEDS: ATORVASTATIN CA 20 MG TABLET (FP) PO SCH (21:17)
[2020-12-25] MEDS ORDERED: FUROSEMIDE 40 MG/4 ML INJECTABLE VIAL IVPUSH SCH (06:00)
[2020-12-25 08:01] LABS: HEMOGLOBIN 8.6 GM/dl (10.7-15.3); MCH 23.5 pg (25.7-33.7); MCHC 30.9 g/dl (32.0-36.0); MEAN CELL VOLUME 76.1 fl (80-96); MEAN PLT VOLUME 9.5 fl (7.5-11.1); PLATELET COUNT 188 K/MM3 (134-434); RBC 3.68 M/mm3 (3.60-5.2); RDW 19.5 % (11.6-15.6); WHITE BLOOD COUNT 5.4 K/mm3 (4.0-10.8)
[2020-12-25 08:15] LABS: ANION GAP 8 MMOL/L (8-16); CALCIUM 8.4 mg/dl (8.5-10); CHLORIDE 105 mmol/L (98-107); CO2 27 mmol/L (21-32); CREATININE 1.6 mg/dl (0.55-1.3); GLUCOSE,RANDOM 167 mg/dl (74-106); MAGNESIUM 2.2 mg/dL (1.8-2.4); SODIUM 140 mmol/L (136-145)
[2020-12-25] MEDS ORDERED: ISOSORBIDE MONONITRATE 60 MG TAB.SR.24H (FP) PO SCH (10:00)
[2020-12-25] MEDS ORDERED: cloNIDine-TTS 0.2 MG/24 HOURS PATCH.TDWK TD SCH ×2 (10:00)
[2020-12-25] MEDS: hydrALAZINE HCL 10 MG TABLET PO SCH ×2 (10:48→21:37)
[2020-12-25] MEDS: ALLOPURINOL 100 MG TABLET (FP) PO SCH (10:48)
[2020-12-25] MEDS: metoPROLOL SUCCINATE 25 MG TAB.SR.24H (FP) PO SCH (10:48)
[2020-12-25] MEDS: APIXABAN 5 MG TABLET PO SCH ×2 (10:48→21:37)
[2020-12-25] MEDS: ISOSORBIDE MONONITRATE 30 MG TAB.SR.24H (FP) PO SCH ×2 (10:48→21:37)
[2020-12-25] MEDS ORDERED: cloNIDine-TTS 0.1 MG/24 HRS PATCH.TDWK TD SCH (14:07)
[2020-12-25] MEDS: FUROSEMIDE 40 MG/4 ML INJECTABLE VIAL IVPUSH SCH (15:21)
[2020-12-25] MEDS: INSULIN SLIDING SCALE (NOVOLOG) 1 VIAL SQ SCH ×2 (16:56→21:37)
[2020-12-25] MEDS: FERROUS SO4 325 MG TABLET (FP) PO SCH (21:37)
[2020-12-25] MEDS: ATORVASTATIN CA 20 MG TABLET (FP) PO SCH (21:37)
[2020-12-25] MEDS: INSULIN (LEVEMIR) 100 UNITS/ML UNITS SQ SCH (21:38)
[2020-12-26] MEDS: FUROSEMIDE 40 MG/4 ML INJECTABLE VIAL IVPUSH SCH (05:54)
[2020-12-26] MEDS: INSULIN SLIDING SCALE (NOVOLOG) 1 VIAL SQ SCH ×4 (06:06→21:48)
[2020-12-26 09:04] LABS: CREATININE 1.7 mg/dl (0.55-1.3); MAGNESIUM 2.1 mg/dL (1.8-2.4)
[2020-12-26] MEDS: FERROUS SO4 325 MG TABLET (FP) PO SCH ×2 (10:03→21:47)
[2020-12-26] MEDS: ALLOPURINOL 100 MG TABLET (FP) PO SCH (10:03)
[2020-12-26] MEDS: ISOSORBIDE MONONITRATE 30 MG TAB.SR.24H (FP) PO SCH ×2 (10:03→21:48)
[2020-12-26] MEDS: hydrALAZINE HCL 10 MG TABLET PO SCH ×2 (10:03→21:47)
[2020-12-26] MEDS: APIXABAN 5 MG TABLET PO SCH ×2 (10:03→21:47)
[2020-12-26] MEDS: metoPROLOL SUCCINATE 25 MG TAB.SR.24H (FP) PO SCH (10:03)
[2020-12-26] MEDS ORDERED: METOLAZONE 2.5 MG TABLET (FP) PO ONE (12:09)
[2020-12-26] MEDS: FUROSEMIDE 40 MG/4 ML INJECTABLE VIAL IVPB SCH (15:47)
[2020-12-26] MEDS: ATORVASTATIN CA 20 MG TABLET (FP) PO SCH (21:48)
[2020-12-26] MEDS: INSULIN (LEVEMIR) 100 UNITS/ML UNITS SQ SCH (21:48)
[2020-12-27] MEDS: FUROSEMIDE 40 MG/4 ML INJECTABLE VIAL IVPB SCH ×2 (05:37→16:00)
[2020-12-27] MEDS: INSULIN SLIDING SCALE (NOVOLOG) 1 VIAL SQ SCH ×4 (06:53→21:32)
[2020-12-27 08:21] LABS: BASO % 0.5 % (0-2.0); EOS % 3.7 % (0-4.5); HEMATOCRIT 23.2 % (32.4-45.2); HEMOGLOBIN 7.3 GM/dl (10.7-15.3); MCH 23.6 pg (25.7-33.7); MCHC 31.6 g/dl (32.0-36.0); MEAN CELL VOLUME 74.7 fl (80-96); MEAN PLT VOLUME 9.7 fl (7.5-11.1); MONO % 10.6 % (3.8-10.2); NEUT % 72.2 % (42.8-82.8); PLATELET COUNT 249 K/MM3 (134-434); WHITE BLOOD COUNT 5.8 K/mm3 (4.0-10.8)
[2020-12-27 08:28] LABS: ALBUMIN 2.8 g/dl (3.4-5.0); BILIRUBIN,TOTAL 0.8 mg/dl (0.2-1); CALCIUM 8.3 mg/dl (8.5-10); CREATININE 1.8 mg/dl (0.55-1.3); MAGNESIUM 1.9 mg/dL (1.8-2.4); TOT PROT 6.2 g/dl (6.4-8.2)
[2020-12-27 10:32] LABS: ADD RBC MORPHOLOGY YES
[2020-12-27] MEDS: ISOSORBIDE MONONITRATE 30 MG TAB.SR.24H (FP) PO SCH ×2 (10:51→21:31)
[2020-12-27] MEDS: hydrALAZINE HCL 10 MG TABLET PO SCH ×2 (10:51→21:30)
[2020-12-27] MEDS: metoPROLOL SUCCINATE 25 MG TAB.SR.24H (FP) PO SCH (10:51)
[2020-12-27] MEDS: FERROUS SO4 325 MG TABLET (FP) PO SCH ×2 (10:52→21:30)
[2020-12-27] MEDS: ALLOPURINOL 100 MG TABLET (FP) PO SCH (10:52)
[2020-12-27] MEDS: APIXABAN 5 MG TABLET PO SCH ×2 (10:52→21:31)
[2020-12-27] MEDS ORDERED: INSULIN (LEVEMIR) 100 UNITS/ML UNITS SQ SCH (12:46)
[2020-12-27] MEDS ORDERED: METOLAZONE 2.5 MG TABLET (FP) PO ONE (14:45)
[2020-12-27] MEDS: ATORVASTATIN CA 20 MG TABLET (FP) PO SCH (21:31)
[2020-12-28] MEDS: FUROSEMIDE 40 MG/4 ML INJECTABLE VIAL IVPB SCH (05:40)
[2020-12-28] MEDS: INSULIN SLIDING SCALE (NOVOLOG) 1 VIAL SQ SCH ×2 (06:45→11:25)
[2020-12-28 08:06] LABS: CALCIUM 8.4 mg/dl (8.5-10); CREATININE 2.1 mg/dl (0.55-1.3); MAGNESIUM 2.1 mg/dL (1.8-2.4)
[2020-12-28] MEDS: ALLOPURINOL 100 MG TABLET (FP) PO SCH (09:31)
[2020-12-28] MEDS: ISOSORBIDE MONONITRATE 30 MG TAB.SR.24H (FP) PO SCH (09:31)
[2020-12-28] MEDS: hydrALAZINE HCL 10 MG TABLET PO SCH (09:31)
[2020-12-28] MEDS: FERROUS SO4 325 MG TABLET (FP) PO SCH (09:31)
[2020-12-28] MEDS: APIXABAN 5 MG TABLET PO SCH (09:31)
[2020-12-28] MEDS: POTASSIUM CHLORIDE TABS 20 MEQ TABLET.ER (FP) PO SCH ×2 (10:41→16:22)
[2020-12-28 13:50] VITALS: BP 113/49; PULSE 65; TEMP 97.8
[2020-12-28] MEDS: metoPROLOL SUCCINATE 25 MG TAB.SR.24H (FP) PO SCH (14:38)
[2020-12-29] MEDS ORDERED: TORSEMIDE 100 MG TABLET PO SCH (10:00)
[2021-01-01] MEDS ORDERED: cloNIDine-TTS 0.1 MG/24 HRS PATCH.TDWK TD SCH (10:00)
== END 2020-12-28 16:41 | disposition home or self-care (01) | DRG 291 ==
LOC: FER 12:21 → FM/S 15:49 → OBSVTOIN 19:23
PROVIDERS: ADMIT Internal Medicine; ATTEND Nurse Practitioner Acute Care
DX: I13.0 Hypertensive heart and chronic kidney disease with heart failure and stage 1 through stage 4 chronic kidney disease, or unspecified chronic kidney disease (principal); I50.33 Acute on chronic diastolic (congestive) heart failure; I48.91 Unspecified atrial fibrillation; Z79.01 Long term (current) use of anticoagulants; E11.22 Type 2 diabetes mellitus with diabetic chronic kidney disease; N18.9 Chronic kidney disease, unspecified; Z79.4 Long term (current) use of insulin; I36.1 Nonrheumatic tricuspid (valve) insufficiency; I34.0 Nonrheumatic mitral (valve) insufficiency; I27.20 Pulmonary hypertension, unspecified; D50.9 Iron deficiency anemia, unspecified
CPT/HCPCS: 36415; 71045-TC-FY; 80048; 80053; 82550; 82803; 82962; 83735; 83880; 84100; 84443; 84484; 85025; 85027; 85610; 85730; 93005; 93010; 93306-TC; 97116-GP; 97162-GP; 99285-25; C9803; G0378; U0003; U0005

== ENCOUNTER 2021-05-06 22:42 | Inpatient (IN) | payer OTHER ==
[2021-05-06] MEDS ORDERED: ONDANSETRON 4 MG/2 ML VIAL IVPB ONE (23:02)
[2021-05-06] MEDS ORDERED: morphine CARPU-JECT 4 MG/1 ML DISP.SYRIN IVPUSH ONE ×2 (23:02→23:16)
[2021-05-06] MEDS ORDERED: SODIUM CHLORIDE 1,000 ML IV ONE (23:02)
[2021-05-06] MEDS ORDERED: ONDANSETRON 4 MG/2 ML VIAL ONE (23:06)
[2021-05-06] MEDS ORDERED: morphine SULFATE 4 MG/ML VIAL ONE ×2 (23:06→23:28)
[2021-05-06 23:17] LABS: BASO % 4.7 % (0-2.0); HEMATOCRIT 26.1 % (32.4-45.2); HEMOGLOBIN 8.5 GM/dl (10.7-15.3); LYMPH % 15.2 % (8-40); MCH 25.4 pg (25.7-33.7); MCHC 32.5 g/dl (32.0-36.0); MEAN CELL VOLUME 78.1 fl (80-96); MEAN PLT VOLUME 9.1 fl (7.5-11.1); MONO % 7.9 % (3.8-10.2); NEUT % 70.2 % (42.8-82.8); PLATELET COUNT 274 10^3/uL (134-434); RBC 3.34 M/mm3 (3.60-5.2); RDW 17.4 % (11.6-15.6); WHITE BLOOD COUNT 7.6 K/mm3 (4.0-10.8)
[2021-05-06 23:29] LABS: ALBUMIN 3.4 g/dl (3.4-5.0); BILIRUBIN,TOTAL 0.8 mg/dl (0.2-1); CALCIUM 8.8 mg/dl (8.5-10); CREATININE 2.1 mg/dl (0.55-1.3); TOT PROT 7.1 g/dl (6.4-8.2)
[2021-05-06] MEDS ORDERED: HYDROmorphone HCL CARPU-JECT 1 MG/1 ML DISP.SYRIN IVPUSH ONE (23:46)
[2021-05-07] MEDS ORDERED: HYDROmorphone HCL/PF 1 MG/ML VIAL ONE
[2021-05-07] MEDS ORDERED: morphine SULFATE 4 MG/ML VIAL IVPUSH PRN ×2 (05:00→13:42)
[2021-05-07] MEDS ORDERED: ONDANSETRON 4 MG/2 ML VIAL IVPUSH PRN (05:00)
[2021-05-07 08:23] LABS: ALBUMIN 3.2 g/dl (3.4-5.0); BILIRUBIN,TOTAL 1.1 mg/dl (0.2-1); CALCIUM 8.6 mg/dl (8.5-10); TOT PROT 6.8 g/dl (6.4-8.2)
[2021-05-07 08:25] LABS: BASO % 0.5 % (0-2.0); EOS % 0.4 % (0-4.5); HEMATOCRIT 24.2 % (32.4-45.2); HEMOGLOBIN 7.9 GM/dl (10.7-15.3); LYMPH % 5.6 % (8-40); MCH 25.8 pg (25.7-33.7); MCHC 32.6 g/dl (32.0-36.0); MEAN CELL VOLUME 79.2 fl (80-96); MEAN PLT VOLUME 9.9 fl (7.5-11.1); MONO % 9.2 % (3.8-10.2); NEUT % 84.3 % (42.8-82.8); PLATELET COUNT 223 10^3/uL (134-434); RBC 3.05 M/mm3 (3.60-5.2); RDW 17.2 % (11.6-15.6); WHITE BLOOD COUNT 9.9 K/mm3 (4.0-10.8)
[2021-05-07] MEDS: SODIUM CHLORIDE 1,000 ML IV SCH (08:30)
[2021-05-07] MEDS ORDERED: ACETAMINOPHEN 1000 MG/100 ML VIAL (NON FORMULARY) IVPB ONE (08:42)
[2021-05-07 09:02] LABS: EPITHELIAL CELLS MODERATE /hpf
[2021-05-07] MEDS ORDERED: metoPROLOL SUCCINATE 25 MG TAB.SR.24H (FP) PO SCH (10:00)
[2021-05-07] MEDS ORDERED: hydrALAZINE HCL 10 MG TABLET PO SCH (10:00)
[2021-05-07] MEDS ORDERED: cloNIDine-TTS 0.1 MG/24 HRS PATCH.TDWK TD SCH (10:00)
[2021-05-07] MEDS ORDERED: DEXTROSE 5%-WATER - 50 ML IVPB ONE ×2 (11:46→17:37)
[2021-05-07] MEDS ORDERED: PIPERACILLIN/TAZOBACTAM 3.375 GM VIAL IVPB ONE ×2 (11:46→17:37)
[2021-05-07] MEDS: ISOSORBIDE MONONITRATE 30 MG TAB.SR.24H (FP) PO SCH ×2 (11:52→21:37)
[2021-05-07] MEDS: PIPERACILLIN/TAZOB 3.375 GM 3.375 GM in DEXTROSE 5%-WATER - 50 ML IVPB SCH ×2 (11:53→17:40)
[2021-05-07] MEDS: PANTOPRAZOLE SODIUM 40 MG VIAL IVPUSH SCH (12:00)
[2021-05-07] MEDS ORDERED: MORPHINE SULFATE 2 MG/ML VIAL IVPUSH ONE (12:38)
[2021-05-07] MEDS: LABETALOL HCL 100 MG TABLET (FP) PO SCH ×2 (14:17→21:38)
[2021-05-07] MEDS: hydrALAZINE HCL 25 MG TABLET (FP) PO SCH ×2 (14:17→21:37)
[2021-05-07] MEDS: ACETAMINOPHEN 1000 MG/100 ML VIAL (NON FORMULARY) IVPB PRN ×2 (16:27→21:41)
[2021-05-07] MEDS: INSULIN (NOVOLOG) ASPART 100 UNITS/ML 10ML VIAL SQ SCH ×2 (17:43→21:47)
[2021-05-07] MEDS ORDERED: SODIUM CHLORIDE 250 ML IV STA (21:17)
[2021-05-07] MEDS: ATORVASTATIN CA 20 MG TABLET (FP) PO SCH (21:38)
[2021-05-08] MEDS ORDERED: DEXTROSE 5%-WATER - 50 ML IVPB ONE ×3 (01:19→16:31)
[2021-05-08] MEDS ORDERED: PIPERACILLIN/TAZOBACTAM 3.375 GM VIAL IVPB ONE ×3 (01:19→16:31)
[2021-05-08] MEDS: PIPERACILLIN/TAZOB 3.375 GM 3.375 GM in DEXTROSE 5%-WATER - 50 ML IVPB SCH ×3 (01:27→17:11)
[2021-05-08] MEDS: LABETALOL HCL 100 MG TABLET (FP) PO SCH (06:46)
[2021-05-08] MEDS: INSULIN (NOVOLOG) ASPART 100 UNITS/ML 10ML VIAL SQ SCH ×4 (06:46→21:07)
[2021-05-08] MEDS: hydrALAZINE HCL 25 MG TABLET (FP) PO SCH (06:47)
[2021-05-08] MEDS: PANTOPRAZOLE SODIUM 40 MG VIAL IVPUSH SCH (09:41)
[2021-05-08] MEDS: SODIUM CHLORIDE 1,000 ML IV SCH (09:41)
[2021-05-08] MEDS: ISOSORBIDE MONONITRATE 30 MG TAB.SR.24H (FP) PO SCH ×2 (09:41→21:07)
[2021-05-08] MEDS: ATORVASTATIN CA 20 MG TABLET (FP) PO SCH (21:07)
[2021-05-09] MEDS ORDERED: DEXTROSE 5%-WATER - 50 ML IVPB ONE ×2 (02:32→09:44)
[2021-05-09] MEDS ORDERED: PIPERACILLIN/TAZOBACTAM 3.375 GM VIAL IVPB ONE ×2 (02:32→09:44)
[2021-05-09] MEDS: PIPERACILLIN/TAZOB 3.375 GM 3.375 GM in DEXTROSE 5%-WATER - 50 ML IVPB SCH ×2 (02:55→09:51)
[2021-05-09] MEDS: INSULIN (NOVOLOG) ASPART 100 UNITS/ML 10ML VIAL SQ SCH ×4 (06:09→21:30)
[2021-05-09 09:00] LABS: BASO % 0.7 % (0-2.0); EOS % 1.4 % (0-4.5); HEMATOCRIT 24.8 % (32.4-45.2); HEMOGLOBIN 8.1 GM/dL (10.7-15.3); LYMPH % 10.2 % (8-40); MCH 25.4 pg (25.7-33.7); MCHC 32.6 g/dl (32.0-36.0); MEAN CELL VOLUME 77.9 fl (80-96); MEAN PLT VOLUME 9.4 fl (7.5-11.1); MONO % 16.7 % (3.8-10.2); PLATELET COUNT 226 10^3/uL (134-434); RBC 3.19 M/mm3 (3.60-5.2); RDW 18.4 % (11.6-15.6); WHITE BLOOD COUNT 8.1 K/mm3 (4.0-10.0)
[2021-05-09 09:29] LABS: ALBUMIN 2.6 g/dl (3.4-5.0); BLOOD UREA NITROGEN 62.4 mg/dL (7-18); CALCIUM 8.8 mg/dL (8.5-10.1)
[2021-05-09 09:32] LABS: CREATININE 2.4 mg/dL (0.55-1.3)
[2021-05-09 09:34] LABS: BILIRUBIN,TOTAL 1.1 mg/dL (0.2-1); TOT PROT 6.9 g/dl (6.4-8.2)
[2021-05-09] MEDS: PANTOPRAZOLE SODIUM 40 MG VIAL IVPUSH SCH (09:51)
[2021-05-09] MEDS: ISOSORBIDE MONONITRATE 30 MG TAB.SR.24H (FP) PO SCH ×2 (09:52→21:29)
[2021-05-09] MEDS: SODIUM CHLORIDE 1,000 ML IV SCH (09:55)
[2021-05-09] MEDS: ATORVASTATIN CA 20 MG TABLET (FP) PO SCH (21:29)
[2021-05-09] MEDS: FERROUS SO4 325 MG TABLET (FP) PO SCH (21:29)
[2021-05-10] MEDS: SODIUM CHLORIDE 1,000 ML IV SCH (05:54)
[2021-05-10] MEDS: INSULIN (NOVOLOG) ASPART 100 UNITS/ML 10ML VIAL SQ SCH ×2 (06:13→12:05)
[2021-05-10] MEDS: FERROUS SO4 325 MG TABLET (FP) PO SCH ×2 (09:16→21:54)
[2021-05-10] MEDS: PANTOPRAZOLE SODIUM 40 MG VIAL IVPUSH SCH (09:16)
[2021-05-10] MEDS: ISOSORBIDE MONONITRATE 30 MG TAB.SR.24H (FP) PO SCH (09:16)
[2021-05-10 10:45] LABS: HEMATOCRIT 24.3 % (32.4-45.2); HEMOGLOBIN 7.9 GM/dL (10.7-15.3); MCH 25.5 pg (25.7-33.7); MCHC 32.7 g/dl (32.0-36.0); MEAN CELL VOLUME 78.2 fl (80-96); PLATELET COUNT 232 10^3/uL (134-434); RBC 3.11 M/mm3 (3.60-5.2); RDW 18.4 % (11.6-15.6); WHITE BLOOD COUNT 6.4 K/mm3 (4.0-10.0)
[2021-05-10 11:06] LABS: ALBUMIN 2.6 g/dl (3.4-5.0); CALCIUM 8.1 mg/dL (8.5-10.1)
[2021-05-10 11:07] LABS: BLOOD UREA NITROGEN 48.8 mg/dL (7-18); MAGNESIUM 2.4 mg/dL (1.8-2.4)
[2021-05-10 11:10] LABS: PHOSPHOROUS 2.9 mg/dL (2.5-4.9)
[2021-05-10 11:11] LABS: BILIRUBIN,TOTAL 0.8 mg/dL (0.2-1); TOT PROT 7.1 g/dl (6.4-8.2)
[2021-05-10 11:32] LABS: INR 1.4 (0.83-1.09)
[2021-05-10] MEDS ORDERED: MIDAZOLAM HCL 2 MG/2 ML SINGLE DOSE VIAL ONE ×2 (12:07→13:59)
[2021-05-10] MEDS ORDERED: PROPOFOL 20 ML ONE ×3 (12:07→13:59)
[2021-05-10] MEDS ORDERED: SUCCINYLCHOLINE CHLORIDE 200 MG/10 ML SYRINGE ONE (13:59)
[2021-05-10] MEDS ORDERED: ceFAZolin SODIUM 1 GM VIAL IVPB ONE (14:10)
[2021-05-10] MEDS: SODIUM CHLORIDE 0.45% 1,000 ML IV SCH (16:00)
[2021-05-10] MEDS: INSULIN SLIDING SCALE (NOVOLOG) 1 VIAL SQ SCH ×2 (17:12→21:55)
[2021-05-10] MEDS: MORPHINE SULFATE 2 MG/ML VIAL IVPUSH PRN (17:21)
[2021-05-10] MEDS: ATORVASTATIN CA 20 MG TABLET (FP) PO SCH (21:54)
[2021-05-10] MEDS: hydrALAZINE HCL 10 MG TABLET PO SCH (21:54)
[2021-05-11] MEDS: INSULIN SLIDING SCALE (NOVOLOG) 1 VIAL SQ SCH ×4 (06:34→21:22)
[2021-05-11] MEDS: SODIUM CHLORIDE 0.45% 1,000 ML IV SCH ×2 (06:52→17:30)
[2021-05-11] MEDS: hydrALAZINE HCL 10 MG TABLET PO SCH ×2 (09:28→21:19)
[2021-05-11] MEDS: ISOSORBIDE MONONITRATE 30 MG TAB.SR.24H (FP) PO SCH (09:28)
[2021-05-11] MEDS: PANTOPRAZOLE 40 MG TABLET PO SCH (09:29)
[2021-05-11] MEDS: MORPHINE SULFATE 2 MG/ML VIAL IVPUSH PRN (09:32)
[2021-05-11] MEDS: FERROUS SO4 325 MG TABLET (FP) PO SCH ×2 (09:32→21:23)
[2021-05-11] MEDS: metoPROLOL SUCCINATE 25 MG TAB.SR.24H (FP) PO SCH (09:34)
[2021-05-11 10:35] LABS: BASO % 0.2 % (0-2.0); HEMATOCRIT 24.1 % (32.4-45.2); HEMOGLOBIN 7.7 GM/dL (10.7-15.3); LYMPH % 8.4 % (8-40); MCH 25.1 pg (25.7-33.7); MCHC 31.9 g/dl (32.0-36.0); MEAN CELL VOLUME 78.7 fl (80-96); MEAN PLT VOLUME 9.7 fl (7.5-11.1); MONO % 8.1 % (3.8-10.2); NEUT % 83.3 % (42.8-82.8); PLATELET COUNT 233 10^3/uL (134-434); RBC 3.06 M/mm3 (3.60-5.2); RDW 18.1 % (11.6-15.6)
[2021-05-11 11:05] LABS: ALBUMIN 2.5 g/dl (3.4-5.0); BLOOD UREA NITROGEN 40.4 mg/dL (7-18); CALCIUM 7.8 mg/dL (8.5-10.1)
[2021-05-11 11:07] LABS: MAGNESIUM 2.4 mg/dL (1.8-2.4)
[2021-05-11 11:08] LABS: CREATININE 1.7 mg/dL (0.55-1.3)
[2021-05-11 11:09] LABS: BILIRUBIN,TOTAL 0.5 mg/dL (0.2-1); PHOSPHOROUS 3.4 mg/dL (2.5-4.9); TOT PROT 6.8 g/dl (6.4-8.2)
[2021-05-11] MEDS: ACETAMINOPHEN 325 MG TABLET (FP) PO PRN ×2 (17:29→23:31)
[2021-05-11] MEDS ORDERED: PT OWN MED DRAWER 7, Y5N ONE (17:54)
[2021-05-11] MEDS: ATORVASTATIN CA 20 MG TABLET (FP) PO SCH (21:22)
[2021-05-11] MEDS ORDERED: MELATONIN 1 MG TABLET PO ONE (22:00)
[2021-05-12] MEDS: INSULIN SLIDING SCALE (NOVOLOG) 1 VIAL SQ SCH ×5 (06:35→22:10)
[2021-05-12] MEDS: hydrALAZINE HCL 10 MG TABLET PO SCH ×2 (09:22→22:10)
[2021-05-12] MEDS: FERROUS SO4 325 MG TABLET (FP) PO SCH ×2 (09:22→22:10)
[2021-05-12] MEDS: metoPROLOL SUCCINATE 25 MG TAB.SR.24H (FP) PO SCH (09:22)
[2021-05-12] MEDS: ISOSORBIDE MONONITRATE 30 MG TAB.SR.24H (FP) PO SCH (09:22)
[2021-05-12] MEDS: PANTOPRAZOLE 40 MG TABLET PO SCH (09:22)
[2021-05-12] MEDS: POLYETHYLENE GLYCOL (HEALTHYLAX) 3350 17 GM PACKET PO SCH (09:43)
[2021-05-12 11:24] LABS: BASO % 0.5 % (0-2.0); EOS % 1.3 % (0-4.5); HEMATOCRIT 25.1 % (32.4-45.2); HEMOGLOBIN 8.1 GM/dL (10.7-15.3); LYMPH % 16.1 % (8-40); MCH 25.4 pg (25.7-33.7); MCHC 32.4 g/dl (32.0-36.0); MEAN CELL VOLUME 78.3 fl (80-96); MEAN PLT VOLUME 9.4 fl (7.5-11.1); MONO % 10.9 % (3.8-10.2); NEUT % 71.2 % (42.8-82.8); PLATELET COUNT 254 10^3/uL (134-434); RBC 3.21 M/mm3 (3.60-5.2); RDW 18.2 % (11.6-15.6); WHITE BLOOD COUNT 7.7 K/mm3 (4.0-10.0)
[2021-05-12 12:00] LABS: CALCIUM 8.4 mg/dL (8.5-10.1)
[2021-05-12 12:02] LABS: ALBUMIN 2.5 g/dl (3.4-5.0); BLOOD UREA NITROGEN 42.4 mg/dL (7-18); MAGNESIUM 2.4 mg/dL (1.8-2.4)
[2021-05-12 12:06] LABS: BILIRUBIN,TOTAL 0.4 mg/dL (0.2-1); TOT PROT 6.8 g/dl (6.4-8.2)
[2021-05-12] MEDS: DOCUSATE SODIUM 100 MG CAPSULE (FP) PO SCH ×2 (14:06→22:10)
[2021-05-12] MEDS: SODIUM CHLORIDE 0.45% 1,000 ML IV SCH (16:55)
[2021-05-12] MEDS: APIXABAN 5 MG TABLET PO SCH (22:10)
[2021-05-12] MEDS: ATORVASTATIN CA 20 MG TABLET (FP) PO SCH (22:10)
[2021-05-13] MEDS: ACETAMINOPHEN 325 MG TABLET (FP) PO PRN (00:35)
[2021-05-13] MEDS: SODIUM CHLORIDE 0.45% 1,000 ML IV SCH ×3 (02:00→21:00)
[2021-05-13] MEDS: MORPHINE SULFATE 2 MG/ML VIAL IVPUSH PRN ×3 (02:08→21:25)
[2021-05-13] MEDS: DOCUSATE SODIUM 100 MG CAPSULE (FP) PO SCH ×3 (06:25→21:22)
[2021-05-13] MEDS: INSULIN SLIDING SCALE (NOVOLOG) 1 VIAL SQ SCH ×4 (06:26→21:22)
[2021-05-13] MEDS: FERROUS SO4 325 MG TABLET (FP) PO SCH ×2 (09:52→21:22)
[2021-05-13] MEDS: metoPROLOL SUCCINATE 25 MG TAB.SR.24H (FP) PO SCH (09:52)
[2021-05-13] MEDS: hydrALAZINE HCL 10 MG TABLET PO SCH ×2 (09:53→21:22)
[2021-05-13] MEDS: APIXABAN 5 MG TABLET PO SCH ×2 (09:53→21:22)
[2021-05-13] MEDS: PANTOPRAZOLE 40 MG TABLET PO SCH (09:53)
[2021-05-13] MEDS: ISOSORBIDE MONONITRATE 30 MG TAB.SR.24H (FP) PO SCH (09:53)
[2021-05-13] MEDS: POLYETHYLENE GLYCOL (HEALTHYLAX) 3350 17 GM PACKET PO SCH (10:23)
[2021-05-13 14:24] LABS: BASO % 0.3 % (0-2.0); EOS % 1.3 % (0-4.5); HEMATOCRIT 25.4 % (32.4-45.2); HEMOGLOBIN 8.3 GM/dL (10.7-15.3); LYMPH % 15.7 % (8-40); MCH 25.4 pg (25.7-33.7); MCHC 32.8 g/dl (32.0-36.0); MEAN CELL VOLUME 77.6 fl (80-96); MEAN PLT VOLUME 8.9 fl (7.5-11.1); MONO % 13.3 % (3.8-10.2); NEUT % 69.4 % (42.8-82.8); PLATELET COUNT 275 10^3/uL (134-434); RBC 3.28 M/mm3 (3.60-5.2); RDW 18.1 % (11.6-15.6); WHITE BLOOD COUNT 8.4 K/mm3 (4.0-10.0)
[2021-05-13 14:57] LABS: ALBUMIN 2.6 g/dl (3.4-5.0); BLOOD UREA NITROGEN 40.1 mg/dL (7-18); CALCIUM 8.5 mg/dL (8.5-10.1); MAGNESIUM 2.4 mg/dL (1.8-2.4)
[2021-05-13 15:00] LABS: CREATININE 1.7 mg/dL (0.55-1.3)
[2021-05-13 15:01] LABS: TOT PROT 6.9 g/dl (6.4-8.2)
[2021-05-13 15:10] LABS: BILIRUBIN,TOTAL 0.5 mg/dL (0.2-1)
[2021-05-13] MEDS: ATORVASTATIN CA 20 MG TABLET (FP) PO SCH (21:22)
[2021-05-14] MEDS: MORPHINE SULFATE 2 MG/ML VIAL IVPUSH PRN (03:04)
[2021-05-14] MEDS: DOCUSATE SODIUM 100 MG CAPSULE (FP) PO SCH ×3 (06:08→22:46)
[2021-05-14] MEDS: INSULIN SLIDING SCALE (NOVOLOG) 1 VIAL SQ SCH ×4 (06:09→22:46)
[2021-05-14] MEDS: hydrALAZINE HCL 10 MG TABLET PO SCH ×2 (10:28→22:46)
[2021-05-14] MEDS: PANTOPRAZOLE 40 MG TABLET PO SCH (10:28)
[2021-05-14] MEDS: APIXABAN 5 MG TABLET PO SCH ×2 (10:28→22:46)
[2021-05-14] MEDS: metoPROLOL SUCCINATE 25 MG TAB.SR.24H (FP) PO SCH (10:29)
[2021-05-14] MEDS: FERROUS SO4 325 MG TABLET (FP) PO SCH ×2 (10:29→22:46)
[2021-05-14] MEDS: ISOSORBIDE MONONITRATE 30 MG TAB.SR.24H (FP) PO SCH (10:29)
[2021-05-14] MEDS: POLYETHYLENE GLYCOL (HEALTHYLAX) 3350 17 GM PACKET PO SCH (10:29)
[2021-05-14] MEDS: ACETAMINOPHEN 325 MG TABLET (FP) PO PRN (11:18)
[2021-05-14] MEDS ORDERED: CEFTRIAXONE 1 GM in DEXTROSE 5%-WATER - 50 ML IVPB ONE (11:37)
[2021-05-14 12:18] LABS: BASO % 0.5 % (0-2.0); EOS % 1.7 % (0-4.5); HEMOGLOBIN 8.5 GM/dL (10.7-15.3); LYMPH % 12.2 % (8-40); MCH 25.3 pg (25.7-33.7); MCHC 32.6 g/dl (32.0-36.0); MEAN CELL VOLUME 77.8 fl (80-96); MEAN PLT VOLUME 9.2 fl (7.5-11.1); MONO % 10.6 % (3.8-10.2); PLATELET COUNT 286 10^3/uL (134-434); RBC 3.34 M/mm3 (3.60-5.2); RDW 18.1 % (11.6-15.6); WHITE BLOOD COUNT 9.3 K/mm3 (4.0-10.0)
[2021-05-14] MEDS ORDERED: cefTRIAXone SODIUM 1 GM VIAL ONE (12:21)
[2021-05-14] MEDS ORDERED: DEXTROSE 5%-WATER - 50 ML IVPB ONE (12:22)
[2021-05-14] MEDS: traMADol HCL 50 MG TABLET PO PRN ×2 (12:31→20:10)
[2021-05-14] MEDS: CEFTRIAXONE 1 GM in DEXTROSE 5%-WATER - 50 ML IVPB SCH ×2 (12:32→12:45)
[2021-05-14 12:39] LABS: ALBUMIN 2.5 g/dl (3.4-5.0); CALCIUM 8.2 mg/dL (8.5-10.1); MAGNESIUM 2.4 mg/dL (1.8-2.4)
[2021-05-14 12:42] LABS: CREATININE 1.5 mg/dL (0.55-1.3)
[2021-05-14 12:43] LABS: BILIRUBIN,TOTAL 0.6 mg/dL (0.2-1)
[2021-05-14 12:45] LABS: BLOOD UREA NITROGEN 35.3 mg/dL (7-18)
[2021-05-14] MEDS ORDERED: CEFUROXIME AXETIL 500 MG TABLET PO ONE (13:54)
[2021-05-14] MEDS: SODIUM CHLORIDE 0.45% 1,000 ML IV SCH (17:51)
[2021-05-14 21:45] VITALS: BMI 39.6
[2021-05-14] MEDS ORDERED: MORPHINE SULFATE 2 MG/ML VIAL ONE (22:23)
[2021-05-14] MEDS ORDERED: MORPHINE SULFATE 2 MG/ML VIAL SQ ONE (22:30)
[2021-05-14] MEDS: ATORVASTATIN CA 20 MG TABLET (FP) PO SCH (22:46)
[2021-05-15] MEDS: DOCUSATE SODIUM 100 MG CAPSULE (FP) PO SCH ×3 (05:59→21:27)
[2021-05-15] MEDS: INSULIN SLIDING SCALE (NOVOLOG) 1 VIAL SQ SCH ×4 (05:59→21:38)
[2021-05-15] MEDS ORDERED: traMADol HCL 50 MG TABLET PO PRN ×2 (08:08→10:42)
[2021-05-15] MEDS: FERROUS SO4 325 MG TABLET (FP) PO SCH ×2 (09:25→21:27)
[2021-05-15] MEDS: APIXABAN 5 MG TABLET PO SCH ×2 (09:25→21:27)
[2021-05-15] MEDS: PANTOPRAZOLE 40 MG TABLET PO SCH (09:25)
[2021-05-15] MEDS: hydrALAZINE HCL 10 MG TABLET PO SCH ×2 (09:25→21:27)
[2021-05-15] MEDS: POLYETHYLENE GLYCOL (HEALTHYLAX) 3350 17 GM PACKET PO SCH (09:25)
[2021-05-15] MEDS: metoPROLOL SUCCINATE 25 MG TAB.SR.24H (FP) PO SCH (09:25)
[2021-05-15] MEDS: ISOSORBIDE MONONITRATE 30 MG TAB.SR.24H (FP) PO SCH (09:25)
[2021-05-15] MEDS ORDERED: morphine CARPU-JECT 2 MG/1 ML DISP.SYRIN IVPUSH PRN (10:42)
[2021-05-15] MEDS ORDERED: PT OWN MED DRAWER 7, Y5N ONE (11:53)
[2021-05-15] MEDS: TORSEMIDE 100 MG TABLET PO SCH (12:02)
[2021-05-15] MEDS: CEFTRIAXONE 1 GM in DEXTROSE 5%-WATER - 50 ML IVPB SCH (12:05)
[2021-05-15] MEDS: ACETAMINOPHEN 325 MG TABLET (FP) PO PRN (14:12)
[2021-05-15] MEDS: SODIUM CHLORIDE 0.45% 1,000 ML IV SCH (19:21)
[2021-05-15] MEDS: ATORVASTATIN CA 20 MG TABLET (FP) PO SCH (21:27)
[2021-05-15] MEDS: traMADol HCL 50 MG TABLET PO PRN (21:41)
[2021-05-16] MEDS: traMADol HCL 50 MG TABLET PO PRN (05:09)
[2021-05-16] MEDS: DOCUSATE SODIUM 100 MG CAPSULE (FP) PO SCH ×2 (06:34→13:54)
[2021-05-16] MEDS: INSULIN SLIDING SCALE (NOVOLOG) 1 VIAL SQ SCH ×2 (06:38→11:17)
[2021-05-16] MEDS ORDERED: PT OWN MED DRAWER 7, Y5N ONE ×2 (07:00→09:21)
[2021-05-16] MEDS: FERROUS SO4 325 MG TABLET (FP) PO SCH (09:22)
[2021-05-16] MEDS: hydrALAZINE HCL 10 MG TABLET PO SCH (09:22)
[2021-05-16] MEDS: APIXABAN 5 MG TABLET PO SCH (09:22)
[2021-05-16] MEDS: ISOSORBIDE MONONITRATE 30 MG TAB.SR.24H (FP) PO SCH (09:22)
[2021-05-16] MEDS: PANTOPRAZOLE 40 MG TABLET PO SCH (09:22)
[2021-05-16] MEDS: TORSEMIDE 100 MG TABLET PO SCH (09:22)
[2021-05-16 10:25] LABS: BASO % 0.3 % (0-2.0); EOS % 1.7 % (0-4.5); HEMATOCRIT 24.7 % (32.4-45.2); HEMOGLOBIN 8.2 GM/dL (10.7-15.3); LYMPH % 11.3 % (8-40); MCH 25.5 pg (25.7-33.7); MCHC 33.3 g/dl (32.0-36.0); MEAN CELL VOLUME 76.5 fl (80-96); MEAN PLT VOLUME 8.7 fl (7.5-11.1); MONO % 10.1 % (3.8-10.2); NEUT % 76.6 % (42.8-82.8); PLATELET COUNT 313 10^3/uL (134-434); RBC 3.23 M/mm3 (3.60-5.2); RDW 18.2 % (11.6-15.6); WHITE BLOOD COUNT 8.9 K/mm3 (4.0-10.0)
[2021-05-16 10:49] VITALS: BP 149/66; PULSE 60; TEMP 98.1
[2021-05-16 10:57] LABS: ALBUMIN 2.4 g/dl (3.4-5.0); BLOOD UREA NITROGEN 35.7 mg/dL (7-18); CALCIUM 8.4 mg/dL (8.5-10.1)
[2021-05-16 11:00] LABS: CREATININE 1.6 mg/dL (0.55-1.3)
[2021-05-16 11:02] LABS: BILIRUBIN,TOTAL 0.9 mg/dL (0.2-1); TOT PROT 6.9 g/dl (6.4-8.2)
[2021-05-16] MEDS: POLYETHYLENE GLYCOL (HEALTHYLAX) 3350 17 GM PACKET PO SCH (11:17)
[2021-05-16] MEDS ORDERED: CEPHALEXIN MONOHYDRATE 500 MG CAPSULE (UD) PO SCH (13:00)
== END 2021-05-16 17:39 | disposition home or self-care (01) | DRG 660 ==
LOC: FER 22:42 → FM/S 05-07 02:36 → J6S 05-07 23:05
PROVIDERS: ADMIT Specialist; ATTEND Nurse Practitioner Family
PROC: 0TJ98ZZ Inspection of Ureter, Via Natural or Artificial Opening Endoscopic (ICD-10-PCS; 2021-05-10)
PROC: 0TJB8ZZ Inspection of Bladder, Via Natural or Artificial Opening Endoscopic (ICD-10-PCS; principal; 2021-05-10 13:00)
PROC: 0T778DZ Dilation of Left Ureter with Intraluminal Device, Via Natural or Artificial Opening Endoscopic (ICD-10-PCS; 2021-05-10 13:00)
PROC: BT1FZZZ Fluoroscopy of Left Kidney, Ureter and Bladder (ICD-10-PCS; 2021-05-10 13:00)
DX: N13.1 Hydronephrosis with ureteral stricture, not elsewhere classified (principal); I48.20 Chronic atrial fibrillation, unspecified; I13.0 Hypertensive heart and chronic kidney disease with heart failure and stage 1 through stage 4 chronic kidney disease, or unspecified chronic kidney disease; E78.00 Pure hypercholesterolemia, unspecified; N17.9 Acute kidney failure, unspecified; D50.9 Iron deficiency anemia, unspecified; I10 Essential (primary) hypertension; D64.9 Anemia, unspecified; D63.8 Anemia in other chronic diseases classified elsewhere; E66.9 Obesity, unspecified; Z68.39 Body mass index [BMI] 39.0-39.9, adult; E78.5 Hyperlipidemia, unspecified; K57.90 Diverticulosis of intestine, part unspecified, without perforation or abscess without bleeding; M54.5 Low back pain; M10.9 Gout, unspecified; D35.00 Benign neoplasm of unspecified adrenal gland; E11.22 Type 2 diabetes mellitus with diabetic chronic kidney disease; N18.30 Chronic kidney disease, stage 3 unspecified; I50.9 Heart failure, unspecified
CPT/HCPCS: 36415; 71045-TC-FY; 74150-TC; 74176-TC; 76775-TC; 76856-TC; 80053; 81003; 81015; 82550; 82553; 82728; 82962; 83540; 83550; 83605; 83690; 83735; 84100; 84484; 85025; 85027; 85610; 87040; 87070; 87076; 87077; 87086; 87186; 87205; 88108; 93005; 94760; 97116-GP; 97161-GP; 99285-25; C9803; J0131; U0003; U0005